=== PATIENT | male | born 1960 | race Caucasian/White ===

== ENCOUNTER → 2020-06-26 13:38 | Outpatient (BNVA) | payer MEDICAID, SELFPAY | PROVIDERS: Visit Provider Nurse Practitioner | DX: R06.00 Dyspnea, unspecified (principal); J22 Unspecified acute lower respiratory infection | CPT/HCPCS: 83880; 85025 ==

== ENCOUNTER 2020-08-20 08:56 | Outpatient (CLI) | payer MEDICAID, SELFPAY ==
[2020-08-20 09:50] LABS: Basophils # 0.1 10^3/uL (0.0-0.1); Basophils % 0.3 %; Eosinophils # 0.1 10^3/uL (0.0-0.8); Eosinophils % 0.3 %; Hematocrit 43.8 % (42.0-52.0); Hemoglobin 13.9 g/dL (11.7-16.6); Lymphocytes # 1.1 10^3/uL (0.8-4.8); Lymphocytes % 6.2 %; Mean Corpuscular HGB Conc 31.7 g/dL (30.0-36.0); Mean Corpuscular Hemoglobin 30.8 pg (28.0-34.0); Mean Corpuscular Volume 97.1 fL (80-94); Mean Platelet Volume 10.4 fL (7.4-10.4); Monocytes # 0.9 10^3/uL (0.2-0.9); Neutrophils # 15.06 10^3/uL (1.8-7.7); Neutrophils % 86.3 %; Nucleated Red Blood Cells % 0 %; Platelet Count 263 10^3/cmm (130-400); Red Blood Count 4.51 10^6/uL (4.1-5.3); Red Cell Distribution Width 14.5 % (12.1-15.1); White Blood Count 17.5 10^3/uL (4.0-10.0)
--- NOTE | 2020-08-20 14:50 | ONC CON_ITS ---
Dr. Wang New Patient Note Patient: Partha Roe Unit #: [id number]: 1960 Dicatated By: Dieudonne Wang M.D.Date of Visit: August 20, 2020 Onc MED New Patient/Consult Referring Physician: TRAVIS MCKEON History of Present Illness: Mr. Partha Roe, is a 60-year-old gentleman with history of leukocytosis since 2012, as per patient at that time he underwent gallbladder surgery and he was told about elevated white blood cell and during follow-up visits and evaluation, as per patient his white blood count stayed up, there was no other abnormality so his PMD continue to monitor, Lab work-up done and PMDs office on August 13, 2020 showed white blood count 14.8 hemoglobin 14.9 hematocrit 45.4 platelets 276,000, with a left shift in 2018, he was diagnosed withPulmonary sarcoidosis at that time he was started on prednisone and he is still on prednisone 20 mg p.o. daily.. Patient denies any weight loss patient denies any night sweats patient denies any recurrent fever patient denies any gross bleeding patient denies any gum bleeding patient denies any recurrent infections, patient denies any weight loss patient denies any peripheral lymphadenopathy, patient denies any abdominal fullness, patient denies any generalized bony aches. Patient has history of spine injury due to fall in 2019. Patient denies smoking or alcohol use Patient has history of COPD., Hypertension, hyperlipidemia Past Medical History: Mr. Roe's medical history consists of chronic heart disease, chronic obstructive pulmonary disease, hyperlipidemia, hypertension, osteoporosis, and sarcoidosis. Past Surgical History: There is no documented surgical history. Medications: Aspirin 81 1 Tablet (of 81 mg) Tablet, chewable Oral daily, Bactrim DS 1 Tablet (of 800-160 mg) Oral, Furosemide 1 Tablet (of 40 mg) Oral daily, Lisinopril 1 Tablet (of 5 mg) Oral daily, Metoprolol Tartrate 1 Tablet (of 25 mg) Oral b.i.d., Potassium Chloride ER 1 Capsule (of 10 meq) Capsule, controlled release Oral daily, predniSONE 1 Tablet (of 20 mg) Oral daily, Simvastatin 1 Tablet (of 40 mg) Oral daily Allergies: Ibuprofen Social History: Mr. Roe is . Mr. Roe has never smoked. He has no history of drinking. He has indicated exposure to the following products: chewing tobacco. chews i can of tobacco daily. Family History: Mr. Roe's mother is . Mr. Roe's father is : hypertension. Review Of Symptoms: Review of Systems is not available for this patient. Vital Signs: Performed on August 20, 2020 11:11: 0, 28.50, 1.90 sq.m, 66 in, 98 %, 67 /min, 18 /min, 119/73 mm(hg), 97.0 F (LOW), and 176.6 lbs (HIGH). Performance Status: 0 - Fully active, able to carry on all predisease activities without restrictions. (ECOG) Physical Examination: ENMT - No mouth sores, no thrush, no jaundice no cervical lymphadenopathy, no supraclavicular or axillary lymphadenopathy, Respiratory - Lungs are clear to auscultation, Cardiovascular - Regular rate and rhythm of heart, Abdomen - Soft, bowel sounds present, Extremities - Trace edema more on the right side. Lab/Imaging: Most recent lab results are not available for this patient. Impression: Isolated Leukocytosis/neutrophilia, etiology myeloproliferative disorder versus steroid-induced versus associated with sarcoidosis versus underlying chronic inflammation History of sarcoidosis, diagnosed in 2018, on prednisone since then and now taking 20 mg p.o. daily, being managed by pulmonology in [facility] Plan: Discussed with patient regarding his labs white blood count 17.5 hemoglobin 13.9 hematocrit 43.8 platelets 263,000 neutrophil 86.3% lymphocytes 6.2% Clinically, patient is doing well with no new signs symptom except chronic back pain due to back injury due to fall, otherwise denies fever or chills denies any dysuria or sinus problem, his repeat labs done today showed progressive leukocytosis/neutrophilia, etiology remains unclear could be due to myeloproliferative disorder like CML other myeloproliferative disorder sometime associated with sarcoidosis, other possibility could be chronic steroid use but as per patient he was diagnosed with leukocytosis in 2012 at the time of gallbladder surgery e.g. prior to diagnosis of sarcoidosis which was in 2018. At this point we will proceed with whole blood flow cytometry to rule out myeloproliferative disorder and also consider abdominal sonogram to assess spleen size and then patient return to clinic in 2 weeks with CBC Signed By: Dieudonne Wang M.D. <<Signature on File>>
== END 2020-08-20 08:57 | disposition home or self-care (01) ==
PROVIDERS: Visit Provider Internal Medicine Hematology & Oncology
DX: D72.820 Lymphocytosis (symptomatic) (principal); D72.9 Disorder of white blood cells, unspecified; C94.6 Myelodysplastic disease, not elsewhere classified; D86.0 Sarcoidosis of lung; Z79.52 Long term (current) use of systemic steroids; Z79.899 Other long term (current) drug therapy
CPT/HCPCS: 36415; 85025; 88184; 88185; 99205

== ENCOUNTER 2020-09-05 07:35 | Outpatient (CLI) | payer MEDICAID, SELFPAY ==
--- NOTE | 2020-09-05 08:06 | US_ITS ---
WS: [id number] ULTRASOUND ABDOMEN CLINICAL INFORMATION: LEUKOCYTOSIS COMPARISON: Ultrasound 1 FINDINGS: Liver Size: Enlarged Craniocaudal length: 18.1 cm. Echogenicity: Dense Surface nodularity: None. Mass (size and location): None. Bile ducts Intrahepatic ducts: Normal. Common bile duct diameter: 0.5 cm. Gallbladder Removed Pancreas Normal as visualized. Spleen Splenomegaly: None. Craniocaudal length: 9.1 cm. Right kidney: Normal. Hydronephrosis: None. Size: 10.7 cm x 4.8 cm x 6.5 cm Left kidney: Normal. Hydronephrosis: None. Size: 11.4 cm x 5.7 cm x 5.3 cm. Abdominal aorta and IVC Visualized portions are normal. Ascites: None. US/US abdomen complete* [id number] IMPRESSION: 1. Hepatomegaly with diffuse fatty infiltration. 2. Prior cholecystectomy. Normal common bile duct. 3. No hydronephrosis in either kidney. 4. A few splenic granulomas.
== END 2020-09-05 07:36 | disposition home or self-care (01) ==
LOC: RAD 07:38
PROVIDERS: Visit Provider Internal Medicine Hematology & Oncology
DX: D72.829 Elevated white blood cell count, unspecified (principal); L92.8 Other granulomatous disorders of the skin and subcutaneous tissue; R16.0 Hepatomegaly, not elsewhere classified; K76.0 Fatty (change of) liver, not elsewhere classified; Z90.49 Acquired absence of other specified parts of digestive tract
CPT/HCPCS: 76700

== ENCOUNTER 2020-09-10 12:09 | Outpatient (CLI) | payer MEDICAID, SELFPAY ==
[2020-09-10 12:37] LABS: Basophils # 0.1 10^3/uL (0.0-0.1); Basophils % 0.3 %; Eosinophils % 0.1 %; Hematocrit 43.5 % (42.0-52.0); Lymphocytes # 0.8 10^3/uL (0.8-4.8); Lymphocytes % 4.6 %; Mean Corpuscular HGB Conc 32.2 g/dL (30.0-36.0); Mean Corpuscular Hemoglobin 30.8 pg (28.0-34.0); Mean Corpuscular Volume 95.6 fL (80-94); Mean Platelet Volume 10.1 fL (7.4-10.4); Monocytes # 0.5 10^3/uL (0.2-0.9); Monocytes % 3.1 %; Neutrophils # 15.73 10^3/uL (1.8-7.7); Neutrophils % 90.3 %; Nucleated Red Blood Cells % 0 %; Platelet Count 286 10^3/cmm (130-400); Red Blood Count 4.55 10^6/uL (4.1-5.3); Red Cell Distribution Width 14.3 % (12.1-15.1); White Blood Count 17.4 10^3/uL (4.0-10.0)
--- NOTE | 2020-09-28 13:28 | ONC FU_ITS ---
[facility] Patient Note Patient: Partha Roe Unit #: [id number]: 1960 Dictated By: Danny MontanoDate of Visit: Sep 10, 2020 Onc MED Follow-Up/Prog Note Chief Complaint: Leukocytosis History of Present Illness: Mr. Roe is a 60-year-old gentleman with history of leukocytosis since 2012. He reports at that time he underwent gallbladder surgery and he was told about elevated white blood cell. He continued to have elevated white blood cell counts during follow-up visits and evaluations. As there was no other abnormalities, his PMD continue to monitor the WBCs. Lab work-up done and PMDs office on August 13, 2020 showed white blood count 14.8 hemoglobin 14.9 hematocrit 45.4 platelets 276,000. In 2018, he was diagnosed with Pulmonary sarcoidosis at that time he was started on prednisone. He remains on prednisone 20 mg p.o. daily. Patient denies any weight loss patient denies any night sweats patient denies any recurrent fever patient denies any gross bleeding patient denies any gum bleeding patient denies any recurrent infections, patient denies any weight loss patient denies any peripheral lymphadenopathy, patient denies any abdominal fullness, patient denies any generalized bony aches. Patient has history of spine injury due to fall in 2019. Patient has history of COPD., Hypertension, hyperlipidemia At his follow-up with Dr. Wang on August 20, 2020 Dr. Wang had requested and abdominal ultrasound to assess his spleen and flow cytometry to rule out myeloproliferative disorder. Mr. Roe is here today to go over results of the ultrasound. His flow cytometry results are not available in our chart or that I can find in [employer]. We did review that ultrasound report from 09/05/2020. His liver size is slightly enlarged at 18.1 cm bile ducts are normal gallbladder has been removed pancreas was normal spleen was normal size at 9.1 cm his kidneys are normal and abdominal aortic and IVC visualized portions were normal. There was no ascites. Mr. Ross has no new concerns today. He denies any shortness of breath orthopnea. He denies any chest pain or palpitations. He denies fever or chills. He denies any new concerns. He was informed Dr. Wang is out of the office today and I have no results for the flow cytometry. We will have Dr. Wang review those upon his return to the office and have one of the nurses call him with results and plan for further follow-up. His ECOG is 0. Past Medical History: Chronic heart disease Chronic obstructive pulmonary disease Hyperlipidemia Hypertension Osteoporosis Sarcoidosis Past Surgical History: Allergies: Ibuprofen Medications: Aspirin 81 1 Tablet (of 81 mg) Tablet, chewable Oral daily Bactrim DS 1 Tablet (of 800-160 mg) Oral Furosemide 1 Tablet (of 40 mg) Oral daily Lisinopril 1 Tablet (of 5 mg) Oral daily Metoprolol Tartrate 1 Tablet (of 25 mg) Oral b.i.d. Potassium Chloride ER 1 Capsule (of 10 meq) Capsule, controlled release Oral daily predniSONE 1 Tablet (of 20 mg) Oral daily Simvastatin 1 Tablet (of 40 mg) Oral daily Family History: Mr. Roe's mother is . Mr. Roe's father is : hypertension. Social History: Mr. Roe is . Mr. Roe has never smoked. He has no history of drinking. He has indicated exposure to the following products: chewing tobacco. chews i can of tobacco daily. Review Of Symptoms: <See Above> Vital Signs: Performed on Sep 10, 2020 13:39 Height - 66.00 in Weight - 175.4 lbs (LOW) BSA - 1.89 sq.m BMI - 28.31 Temperature - 98.0 F (LOW) Pulse - 70 /min Respiration - 18 /min BP - 117/71 mm(hg) O2 Sat - 97 % Pain - 0,0 - Fully active, able to carry on all predisease activities without restrictions. (ECOG) Physical Examination: Constitutional Alert, oriented, no acute distress. Skin pink, warm and dry. Head Normocephalic; atraumatic. Eyes Conjunctivae and sclerae are clear and without icterus. Pupils are reactive and equal. Hematologic/Lymphatic No petechiae or purpura. Back/Spine Non-tender to palpation. Extremities No visible deformities, no cyanosis, clubbing or edema. Musculoskeletal No tenderness or swelling, normal range of motion without obvious weakness. Integumentary No rashes or lesions. Neurologic No sensory or motor deficits, normal cerebellar function, normal gait. Psychiatric Alert and oriented times three. Coherent speech. Verbalizes understanding of our discussions today. Laboratory:Test performed on Sep 10, 2020 12:30 WBC 17.4 10 3/uL RBC 4.55 10 6/uL HGB 14.0 g/dL HCT 43.5 % MCV 95.6 fL MCH 30.8 pg MCHC 32.2 g/dL RDW 14.3 % Platelet Count 286 10 3/cmm MPV 10.1 fL Neutrophils 15.73 10 3/uL Lymphocytes 0.8 10 3/uL Monocytes 0.5 10 3/uL Eosinophils 0.0 10 3/uL Basophils 0.1 10 3/uL Neutrophil % 90.3 % Lymphocyte % 4.6 % Monocyte % 3.1 % Eosinophil % 0.1 % Basophils % 0.3 % NRBC % 0 % Impression: Isolated Leukocytosis/neutrophilia, etiology myeloproliferative disorder versus steroid-induced versus associated with sarcoidosis versus underlying chronic inflammation History of sarcoidosis, diagnosed in 2018, on prednisone since then and now taking 20 mg p.o. daily, being managed by pulmonology in [facility] Plan/Problems Addressed at this Visit: 1. Leukocytosis A. Labs from today reviewed a white count of 17.4 which is stable compared to August 20, 2020 at which time was 17.5. His hemoglobin today is 14, platelets 286,000 neutrophils are 15,730. B. His ultrasound of the abdomen from 09/05/2020 reports a normal sized spleen at 9.1 cm. C. I do not have the results of his flow cytometry available. D. We will have Dr. Wang review the flow cytometry results once we obtain those and one of the nurses will call Mr. Roe or his (at his request) with results and further plan of care. E. Continue Prednisone 20 mg daily for now. F. Mr. Roe was instructed to contact us in interim should questions or problems arise. Signed By: Danny Montano-, [facility] Dieudonne Wang MD <<Signature on File>>
== END 2020-09-10 12:10 | disposition home or self-care (01) ==
LOC: ONCMED 12:12
PROVIDERS: Visit Provider Nurse Practitioner
DX: D72.829 Elevated white blood cell count, unspecified (principal); Z87.09 Personal history of other diseases of the respiratory system; Z79.52 Long term (current) use of systemic steroids; Z79.899 Other long term (current) drug therapy
CPT/HCPCS: 36415; 85025; G0463

== ENCOUNTER 2020-09-19 05:57 | Outpatient (CLI) | payer MEDICAID, SELFPAY ==
--- NOTE | 2020-09-19 11:37 | ONC FU_ITS ---
Dr. Wang follow up note Patient: Partha Roe Unit #: [id number]: 1960 Dicatated By: Dieudonne Wang M.D.Date of Visit:Sep 19, 2020 Onc Med Follow-up/Prog Note History of Present Illness: Mr. Partha Roe, is a 60-year-old gentleman with history of leukocytosis since 2012, as per patient at that time he underwent gallbladder surgery and he was told about elevated white blood cell and during follow-up visits and evaluation, as per patient his white blood count stayed up, there was no other abnormality so his PMD continue to monitor, Lab work-up done and PMDs office on August 13, 2020 showed white blood count 14.8 hemoglobin 14.9 hematocrit 45.4 platelets 276,000, with a left shift in 2018, he was diagnosed withPulmonary sarcoidosis at that time he was started on prednisone and he is still on prednisone 20 mg p.o. daily.. Patient denies any weight loss patient denies any night sweats patient denies any recurrent fever patient denies any gross bleeding patient denies any gum bleeding patient denies any recurrent infections, patient denies any weight loss patient denies any peripheral lymphadenopathy, patient denies any abdominal fullness, patient denies any generalized bony aches. Patient has history of spine injury due to fall in 2019. Patient has history of COPD., Hypertension, hyperlipidemia Whole blood flow cytometry done on August 20, 2020 showed no overtly aberrant myeloid or lymphoid cells recurrent fever. Abdominal sonogram done on September 05, 2020 showed hepatomegaly with diffuse fatty infiltration. Few splenic granuloma otherwise normal size. Prior cholecystectomy Came for follow-up, denies any specific complaints, no fever chills, no nausea or vomiting, no diarrhea or constipation, patient is on prednisone 20 mg p.o. daily for pulmonary sarcoidosis and now being managed by solutions manager. Patient denies any night sweats, denies any weight loss, denies any Medications: Aspirin 81 1 Tablet (of 81 mg) Tablet, chewable Oral daily, Bactrim DS 1 Tablet (of 800-160 mg) Oral, Furosemide 1 Tablet (of 40 mg) Oral daily, Lisinopril 1 Tablet (of 5 mg) Oral daily, Metoprolol Tartrate 1 Tablet (of 25 mg) Oral b.i.d., Potassium Chloride ER 1 Capsule (of 10 meq) Capsule, controlled release Oral daily, predniSONE 1 Tablet (of 20 mg) Oral daily, Simvastatin 1 Tablet (of 40 mg) Oral daily Allergies: Ibuprofen Review of Systems: Review of Systems is not available for this patient. Vital Signs: Performed on Sep 19, 2020 10:46 Height - 66.00 in Weight - 177.8 lbs (HIGH) BSA - 1.90 sq.m BMI - 28.70 Temperature - 98 F (LOW) Pulse - 76 /min Respiration - 18 /min BP - 124/81 mm(hg) O2 Sat - 98 % Pain - 0 Fatigue - 0 Performance Status: 0 - Fully active, able to carry on all predisease activities without restrictions. (ECOG) Physical Examination: ENMT - No mouth sores, no thrush, no jaundice, no lymphadenopathy, Respiratory - Lungs are clear to auscultation, Cardiovascular - Regular rate and rhythm of heart, Abdomen - Soft, bowel sounds present, Extremities - No visible edema or rash. Lab/Imaging: Test performed on Sep 10, 2020 12:30 WBC 17.4 10 3/uL RBC 4.55 10 6/uL HGB 14.0 g/dL HCT 43.5 % MCV 95.6 fL MCH 30.8 pg MCHC 32.2 g/dL RDW 14.3 % Platelet Count 286 10 3/cmm MPV 10.1 fL Neutrophils 15.73 10 3/uL Lymphocytes 0.8 10 3/uL Monocytes 0.5 10 3/uL Eosinophils 0.0 10 3/uL Basophils 0.1 10 3/uL Neutrophil % 90.3 % Lymphocyte % 4.6 % Monocyte % 3.1 % Eosinophil % 0.1 % Basophils % 0.3 % NRBC % 0 % Impression: Isolated Leukocytosis/neutrophilia, , Most likely due to steroid as whole blood flow cytometry done on August 20, 2020 showed no evidence of aberrant myeloid or lymphoid population, or Underlying myeloproliferative disorder is a possibility but less likely abdominal sonogram done on September 05, 2020 showed hepatomegaly with diffuse fatty infiltration. Prior cholecystectomy. A few splenic granuloma but spleen is normal size History of sarcoidosis, diagnosed in 2018, on prednisone since then and now taking 20 mg p.o. daily, being managed by pulmonology in [facility] Plan: Discussed with patient regarding his labs from September 10, 2020 which shows white blood count 17.4 hemoglobin 14 hematocrit 43.5 platelets 286,000 and whole blood flow cytometry showed no overtly aberrant myeloid or lymphoid population and abdominal sonogram done on September 05, 2020 showed hepatomegaly with diffuse fatty infiltration. Prior cholecystectomy. A few splenic granuloma but spleen is normal size Clinically, patient doing well with no new signs symptoms his follow-up labs shows persistent isolated leukocytosis, whole blood flow cytometry showed no evidence of abnormal lymphoid or myeloid population thus is isolated leukocytosis is most likely due to steroids. And his abdominal sonogram shows no abnormality except fatty liver and few granuloma in the spleen which could be sarcoidosis but spleen size is normal. At this point no further work-up rather monitor patient return to clinic in 3 months with CBC and if there is a progression, may consider molecular testing for myeloproliferative disorder Signed By: Dieudonne Wang M.D. <<Signature on File>>
== END 2020-09-19 05:58 | disposition home or self-care (01) ==
PROVIDERS: Visit Provider Internal Medicine Hematology & Oncology
DX: D72.829 Elevated white blood cell count, unspecified (principal); K76.0 Fatty (change of) liver, not elsewhere classified; Z90.49 Acquired absence of other specified parts of digestive tract; Z87.09 Personal history of other diseases of the respiratory system; Z79.52 Long term (current) use of systemic steroids; Z79.899 Other long term (current) drug therapy
CPT/HCPCS: 99214

== ENCOUNTER 2020-11-06 14:46 | Outpatient (CLI) | payer MEDICAID, SELFPAY ==
[2020-11-06 15:50] LABS: Alanine Aminotransferase 23 U/L (0-41); Albumin Level 4.2 g/dL (3.5-5.2); Alkaline Phosphatase 71 IU/L (40-130); Anion Gap 17.1 (5-19); Aspartate Amino Transferase 18 U/L (0-40); Blood Urea Nitrogen 18 mg/dL (6-20); Carbon Dioxide 25 mmol/L (22-29); Chloride 100 mmol/L (98-107); Globulin 2.4 g/dL (1.3-4.6); Glomerular Filtration Rate 86.7 mL/min (90-130); Glucose 106 mg/dL (65-115); Osmolality Calculated 286 mOsm/kg (285-295); Potassium 5.1 mmol/L (3.5-5.1); Sodium 137 mmol/L (136-145); Total Bilirubin 0.4 mg/dL (0.15-1.2); Total Protein 6.6 g/dL (6.6-8.7)
== END 2020-11-06 14:47 | disposition home or self-care (01) ==
LOC: LAB 14:48
PROVIDERS: PCP Family Medicine; Visit Provider Family Medicine
DX: R16.0 Hepatomegaly, not elsewhere classified (principal); I10 Essential (primary) hypertension
CPT/HCPCS: 80053

== ENCOUNTER 2020-12-19 09:36 | Outpatient (CLI) | payer MEDICAID, SELFPAY ==
[2020-12-19 10:37] LABS: Basophils % 0.3 %; Eosinophils # 0.1 10^3/uL (0.0-0.8); Eosinophils % 0.5 %; Hematocrit 43.9 % (42.0-52.0); Hemoglobin 14.1 g/dL (11.7-16.6); Lymphocytes # 0.9 10^3/uL (0.8-4.8); Lymphocytes % 5.9 %; Mean Corpuscular HGB Conc 32.1 g/dL (30.0-36.0); Mean Corpuscular Hemoglobin 30.6 pg (28.0-34.0); Mean Corpuscular Volume 95.2 fl (80-94); Mean Platelet Volume 10.1 fL (7.4-10.4); Monocytes % 6.1 %; Neutrophils % 85.3 %; Nucleated Red Blood Cells % 0 %; Platelet Count 231 10^3/cmm (130-400); Red Blood Count 4.61 10^6/uL (4.1-5.3); White Blood Count 15.7 10^3/uL (4.0-10.0)
--- NOTE | 2020-12-19 11:29 | ONC FU_ITS ---
Dr. Wang follow up note Patient: Partha Roe Unit #: [id number]: 1960 Dicatated By: Dieudonne Wang M.D.Date of Visit:Dec 19, 2020 Onc Med Follow-up/Prog Note History of Present Illness: Mr. Partha Roe, is a 60-year-old gentleman with history of leukocytosis since 2012, as per patient at that time he underwent gallbladder surgery and he was told about elevated white blood cell and during follow-up visits and evaluation, as per patient his white blood count stayed up, there was no other abnormality so his PMD continue to monitor, Lab work-up done and PMDs office on August 13, 2020 showed white blood count 14.8 hemoglobin 14.9 hematocrit 45.4 platelets 276,000, with a left shift in 2018, he was diagnosed withPulmonary sarcoidosis at that time he was started on prednisone and he is still on prednisone 20 mg p.o. daily.. Patient denies any weight loss patient denies any night sweats patient denies any recurrent fever patient denies any gross bleeding patient denies any gum bleeding patient denies any recurrent infections, patient denies any weight loss patient denies any peripheral lymphadenopathy, patient denies any abdominal fullness, patient denies any generalized bony aches. Patient has history of spine injury due to fall in 2019. Patient has history of COPD., Hypertension, hyperlipidemia Whole blood flow cytometry done on August 20, 2020 showed no overtly aberrant myeloid or lymphoid cells recurrent fever. Abdominal sonogram done on September 05, 2020 showed hepatomegaly with diffuse fatty infiltration. Few splenic granuloma otherwise normal size. Prior cholecystectomy Came for follow-up, denies any specific complaints, no fever chills, no nausea or vomiting, no diarrhea or constipation, no fever chills, no night sweats, patient is on prednisone 20 mg p.o. daily for pulmonary sarcoidosis, pulmonology is monitoring and following him. Medications: Aspirin 81 1 Tablet (of 81 mg) Tablet, chewable Oral daily, Bactrim DS 1 Tablet (of 800-160 mg) Oral, Furosemide 1 Tablet (of 40 mg) Oral daily, Lisinopril 1 Tablet (of 5 mg) Oral daily, Metoprolol Tartrate 1 Tablet (of 25 mg) Oral b.i.d., Potassium Chloride ER 1 Capsule (of 10 meq) Capsule, controlled release Oral daily, predniSONE 1 Tablet (of 20 mg) Oral daily, Simvastatin 1 Tablet (of 40 mg) Oral daily Allergies: Ibuprofen Review of Systems: Review of Systems is not available for this patient. Vital Signs: Performed on Dec 19, 2020 11:10 Height - 66.00 in Weight - 177.8 lbs BSA - 1.90 sq.m BMI - 28.70 Temperature - 97.4 F (LOW) Pulse - 75 /min Respiration - 18 /min BP - 123/77 mm(hg) O2 Sat - 99 % Pain - 0 Performance Status: 0 - Fully active, able to carry on all predisease activities without restrictions. (ECOG) Physical Examination: ENMT - No mouth sores, no thrush, no jaundice, no cervical lymphadenopathy, Respiratory - Lungs are clear to auscultation, Cardiovascular - Regular rate and rhythm of heart, Abdomen - Soft, bowel sounds present, Extremities - No visible edema. Lab/Imaging: Test performed on Sep 10, 2020 12:30 WBC 17.4 10 3/uL RBC 4.55 10 6/uL HGB 14.0 g/dL HCT 43.5 % MCV 95.6 fL MCH 30.8 pg MCHC 32.2 g/dL RDW 14.3 % Platelet Count 286 10 3/cmm MPV 10.1 fL Neutrophils 15.73 10 3/uL Lymphocytes 0.8 10 3/uL Monocytes 0.5 10 3/uL Eosinophils 0.0 10 3/uL Basophils 0.1 10 3/uL Neutrophil % 90.3 % Lymphocyte % 4.6 % Monocyte % 3.1 % Eosinophil % 0.1 % Basophils % 0.3 % NRBC % 0 % Impression: Isolated Leukocytosis/neutrophilia, , Most likely due to steroid as whole blood flow cytometry done on August 20, 2020 showed no evidence of aberrant myeloid or lymphoid population, or Underlying myeloproliferative disorder is a possibility but less likely abdominal sonogram done on September 05, 2020 showed hepatomegaly with diffuse fatty infiltration. Prior cholecystectomy. A few splenic granuloma but spleen is normal size History of sarcoidosis, diagnosed in 2018, on prednisone since then and now taking 20 mg p.o. daily, being managed by pulmonology in [facility] Plan: Discussed with patient regarding his labs white blood count 15.7 compared to 17.4 previously hemoglobin 14.1 hematocrit 43.9 platelets 231,000 absolute neutrophil count 13,400 Clinically, patient doing well with no new signs symptoms, his follow-up labs shows persistent, fluctuating mild leukocytosis/neutrophilia with a normal hemoglobin and platelet counts , etiology of persistent isolated leukocytosis/neutrophilia is most likely due to steroid as steroids cause demargination and slowing down of apoptosis and migration Of white blood cells to the tissue thus cause leukocytosis. Moreover whole blood flow cytometry did not show any aberrant myeloid or lymphoid cell population. At this point ,no further work-up from hematological point of view rather observe, if after discontinuing chronic prednisone therapy, his isolated leukocytosis persists, then will consider work-up to rule out underlying myelo proliferative disorder. Patient will follow with pulmonology as well as his PMD on regular basis so we will see him on as-needed basis. Signed By: Dieudonne Wang M.D. <<Signature on File>>
== END 2020-12-19 09:37 | disposition home or self-care (01) ==
LOC: ONCMED 09:39
PROVIDERS: PCP Family Medicine; Visit Provider Internal Medicine Hematology & Oncology
DX: D72.829 Elevated white blood cell count, unspecified (principal); R16.0 Hepatomegaly, not elsewhere classified; K76.0 Fatty (change of) liver, not elsewhere classified; D86.9 Sarcoidosis, unspecified; Z79.899 Other long term (current) drug therapy
CPT/HCPCS: 36415; 85025; 99214

== ENCOUNTER → 2021-03-05 15:52 | Outpatient (BNVA) | payer MEDICARE, MEDICAID, SELFPAY | PROVIDERS: PCP Family Medicine; Visit Provider Nurse Practitioner Family | DX: J02.9 Acute pharyngitis, unspecified (principal); J44.9 Chronic obstructive pulmonary disease, unspecified; Z01.89 Encounter for other specified special examinations | CPT/HCPCS: 87880 ==

== ENCOUNTER → 2021-03-31 15:48 | Outpatient (BNVA) | payer MEDICARE, MEDICAID, SELFPAY | PROVIDERS: PCP Family Medicine; Visit Provider Family Medicine | DX: R06.00 Dyspnea, unspecified (principal); M79.89 Other specified soft tissue disorders; I25.10 Atherosclerotic heart disease of native coronary artery without angina pectoris; I10 Essential (primary) hypertension | CPT/HCPCS: 80048 ==

== ENCOUNTER 2021-05-22 08:34 | Outpatient (CLI) | payer MEDICARE, MEDICAID, SELFPAY ==
--- NOTE | 2021-05-22 08:45 | USCV_ITS ---
Partha Roe Age: 61 Gender: M : 1960 Exam Date: 05/22/2021 08:51 Ordering Phys: Refugio Bedoya DO Technologist: BRIANA Exam Location: [facility] – [place] Indication: feet swelling R>L s/p DC 2016 s/p cardiac stenting. BP: / HR: 69 Rhythm: Sinus Technical Quality: Adequate MEASUREMENTS (Male / Female) Normal Values 2D ECHO LV Diastolic Diameter PLAX 2.9 cm 4.2 - 5.9 / 3.9 - 5.3 cm LV Systolic Diameter PLAX 2.1 cm IVS Diastolic Thickness 1.6 cm 0.6 - 1.0 / 0.6 - 0.9 cm IVS Systolic Thickness 1.3 cm LVPW Diastolic Thickness 1.6 cm 0.6 - 1.0 / 0.6 - 0.9 cm LVPW Systolic Thickness 1.8 cm LVOT Diameter 2.0 cm LV Ejection Fraction 2D Teich 53.3 % LV Ejection Fraction MOD 2C 54.9 % LV Ejection Fraction 2C AL 55.4 % LA Diameter 4.0 cm LA Width 3.6 cm LA Height 4.4 cm RA Width 2.4 cm RA Height 3.3 cm Aorta at Sinotubular Diameter 2.4 cm M-MODE Aortic Annulus Diameter 2.5 cm LA Ao Ratio MM 1.6 MV E Point Septal Separation 0.9 cm DOPPLER AV Peak Velocity 124.0 cm/s LVOT Peak Velocity 110.0 cm/s AV Area Cont Eq vti 3.0 cm squared AV Area Cont Eq pk 2.8 cm squared MV Area PHT 4.1 cm squared Mitral E to A Ratio 0.9 MV E' Velocity 41.0 cm/s Mitral E to MV E' Ratio 8.7 Mitral E to LV E' Lateral Ratio 6.7 Mitral E to LV E' Septal Ratio 12.7 TR Peak Velocity 248.3 cm/s TR Peak Gradient 24.7 mmHg TV Peak E Velocity 65.0 cm/s Right Atrial Pressure 5.0 mmHg Pulmonary Artery Systolic Pressu 29.7 mmHg PV Peak Velocity 90.0 cm/s RV Acceleration Time 0.2 s RV Ejection Time 0.3 s RV AcT/ET 0.5 FINDINGS Left Ventricle Normal left ventricular size. LV systolic function is normal with EF of 50-55%. No regional wall motion abnormalities. Grade 1 diastolic dysfunction Right Ventricle The right ventricle is normal in size and function. Right Atrium The right atrium is normal in size. Left Atrium The left atrium is normal in size. Mitral Valve Structurally normal mitral valve without significant stenosis or prolapse. There is no mitral regurgitation. Aortic Valve Structurally normal aortic valve without significant sclerosis or stenosis. There is no aortic regurgitation. Tricuspid Valve Structurally normal tricuspid valve without significant stenosis. Trace tricuspid regurgitation. Insufficient TR jet to calculate RVSP Pulmonic Valve Not well visualized Pericardium Normal pericardium without effusion. Aorta Normal ascending aorta dimension. CONCLUSIONS Techinically limited quality echocardiogram because of poor ultrasonic windows. LV systolic function is normal with EF of 50-55% Grade 1 diastolic dysfunction Trace tricuspid regurgitation Compared to prior echocardiogram from 08/21/2015, grade 1 diastolic dysfunction is now noted Shaggy Arrieta MD (Electronically Signed) Final Date: 01 June 2021 15:17 S
== END 2021-05-22 08:35 | disposition home or self-care (01) ==
LOC: RAD 08:37
PROVIDERS: PCP Family Medicine; Visit Provider Family Medicine
DX: M79.89 Other specified soft tissue disorders (principal); R06.00 Dyspnea, unspecified; I07.9 Rheumatic tricuspid valve disease, unspecified
CPT/HCPCS: 93306

== ENCOUNTER → 2021-07-28 08:57 | Outpatient (BNVA) | payer MEDICARE, MEDICAID, SELFPAY | PROVIDERS: PCP Family Medicine; Visit Provider Nurse Practitioner Family | DX: I25.10 Atherosclerotic heart disease of native coronary artery without angina pectoris (principal); I10 Essential (primary) hypertension; M79.89 Other specified soft tissue disorders | CPT/HCPCS: 99213; 99214 ==

== ENCOUNTER → 2021-09-29 16:42 | Outpatient (BNVA) | payer MEDICARE, MEDICAID, SELFPAY | PROVIDERS: PCP Family Medicine; Visit Provider Family Medicine | DX: R06.02 Shortness of breath (principal); M54.6 Pain in thoracic spine; R60.0 Localized edema; I10 Essential (primary) hypertension | CPT/HCPCS: 71046; 80053; 83735; 83880; 84443; 85025; 86140 ==

== ENCOUNTER 2021-09-29 17:24 | Outpatient (CLI) | payer MEDICARE, MEDICAID, SELFPAY ==
[2021-09-29 18:04] LABS: Basophils % 0.1 %; Hematocrit 42.5 % (42.0-52.0); Hemoglobin 14.2 g/dL (11.7-16.6); Lymphocytes # 1.2 10^3/uL (0.8-4.8); Lymphocytes % 5.9 %; Mean Corpuscular HGB Conc 33.4 g/dL (30.0-36.0); Mean Corpuscular Hemoglobin 30.7 pg (28.0-34.0); Mean Corpuscular Volume 91.8 fl (80-94); Mean Platelet Volume 9.9 fL (7.4-10.4); Monocytes # 1.7 10^3/uL (0.2-0.9); Monocytes % 8.1 %; Neutrophils # 17.01 10^3/uL (1.8-7.7); Neutrophils % 83.7 %; Nucleated Red Blood Cells % 0 %; Platelet Count 286 10^3/cmm (130-400); Red Blood Count 4.63 10^6/uL (4.1-5.3); Red Cell Distribution Width 14.2 % (12.1-15.1); White Blood Count 20.4 10^3/uL (4.0-10.0)
[2021-09-29 18:29] LABS: Alanine Aminotransferase 47 U/L (0-41); Albumin Level 4.4 g/dL (3.5-5.2); Alkaline Phosphatase 85 IU/L (40-130); Anion Gap 17.8 (5-19); Aspartate Amino Transferase 24 U/L (0-40); Blood Urea Nitrogen 30 mg/dL (6-20); Calcium 9.8 mg/dL (8.5-10.5); Carbon Dioxide 25 mmol/L (22-29); Chloride 97 mmol/L (98-107); Globulin 2.3 g/dL (1.3-4.6); Glomerular Filtration Rate 76.5 mL/min (90-130); Glucose 112 mg/dL (65-115); Magnesium 2.2 mg/dL (1.7-2.3); NT Pro B Type Natriuretic Pept 51 pg/mL (0-125); Osmolality Calculated 287 mOsm/kg (285-295); Potassium 4.8 mmol/L (3.5-5.1); Sodium 135 mmol/L (136-145); Thyroid Stimulating Hormone 0.54 uIU/mL (0.27-4.20); Total Bilirubin 0.2 mg/dL (0.15-1.2); Total Protein 6.7 g/dL (6.6-8.7)
== END 2021-09-29 17:25 | disposition home or self-care (01) ==
LOC: LAB 17:30
PROVIDERS: PCP Family Medicine; Visit Provider Family Medicine
DX: I10 Essential (primary) hypertension (principal); M54.6 Pain in thoracic spine; R06.02 Shortness of breath; R60.0 Localized edema
CPT/HCPCS: 80053; 83735; 83880; 84443; 85025; 86140

== ENCOUNTER 2021-10-01 14:48 | Outpatient (CLI) | payer MEDICARE, MEDICAID, SELFPAY ==
--- NOTE | 2021-10-01 15:00 | XR_ITS ---
WS: [id number] XR thoracic spine 2V [id number] REASON FOR EXAM: Back pain, worsening. FINDINGS: There is mild to moderate bony demineralization. There are wedge-shaped compression deformities in th e thoracic spine from T5 to T12. These compression deformities have increased in severity with increa sing dorsal kyphosis. There is mild degenerative spondylosis through this same segment with mild disc space narrowing and osteophytic spurring. XR/XR thoracic spine 2V [id number] IMPRESSION: Worsening compression deformities in the thoracic spine likely due to metabolic bone disease.
== END 2021-10-01 14:49 | disposition home or self-care (01) ==
PROVIDERS: PCP Family Medicine; Visit Provider Family Medicine
DX: M54.6 Pain in thoracic spine (principal)
CPT/HCPCS: 72070

== ENCOUNTER → 2021-10-15 10:05 | Outpatient (BNVA) | payer MEDICARE, MEDICAID, SELFPAY | PROVIDERS: PCP Family Medicine; Referring Provider Family Medicine; Visit Provider Orthopaedic Surgery | DX: M48.54XA Collapsed vertebra, not elsewhere classified, thoracic region, initial encounter for fracture (principal); M48.56XA Collapsed vertebra, not elsewhere classified, lumbar region, initial encounter for fracture | CPT/HCPCS: 99204 ==

== ENCOUNTER → 2021-10-20 10:26 | Outpatient (BNVA) | payer MEDICARE, MEDICAID, SELFPAY | PROVIDERS: PCP Family Medicine; Referring Provider Family Medicine; Visit Provider Orthopaedic Surgery | DX: I11.0 Hypertensive heart disease with heart failure (principal); I50.32 Chronic diastolic (congestive) heart failure; E78.49 Other hyperlipidemia | CPT/HCPCS: 36415; 99214 ==

== ENCOUNTER → 2022-01-12 15:06 | Outpatient (BNVA) | payer MEDICARE, MEDICAID, SELFPAY | PROVIDERS: PCP Family Medicine; Visit Provider Family Medicine | DX: R06.00 Dyspnea, unspecified (principal) | CPT/HCPCS: 71046 ==

== ENCOUNTER → 2022-01-29 09:14 | Outpatient (BNVA) | payer MEDICARE, MEDICAID, SELFPAY | PROVIDERS: PCP Family Medicine; Visit Provider Family Medicine | DX: I50.32 Chronic diastolic (congestive) heart failure (principal); R06.02 Shortness of breath; I10 Essential (primary) hypertension | CPT/HCPCS: 80053; 83880 ==

== ENCOUNTER 2022-04-07 10:56 | Outpatient (CLI) | payer MEDICARE, MEDICAID, SELFPAY ==
--- NOTE | 2022-04-07 11:00 | USCV_ITS ---
Partha oRe Age: 62 Gender: M : 1960 Exam Date: 04/07/2022 11:06 Ordering Phys: Harpal Cotton MD Technologist: PREM Exam Location: [facility] – [place] Indication: EDEAM, AND SHORTNESS OF BREATH BP: 127 / 80 HR: 68 Rhythm: Sinus Technical Quality: Adequate MEASUREMENTS (Male / Female) Normal Values 2D ECHO LVOT Diameter 2.0 cm LV Ejection Fraction MOD 2C 59.6 % LV Ejection Fraction 2C AL 58.3 % LA Diameter 3.2 cm LA Width 2.2 cm LA Height 4.4 cm RA Width 2.6 cm RA Height 4.0 cm Aorta at Sinotubular Diameter 2.2 cm IVC Diameter 1.3 cm M-MODE Aortic Annulus Diameter 2.7 cm LA Ao Ratio MM 1.1 MV E Point Septal Separation 0.3 cm DOPPLER AV Peak Velocity 120.3 cm/s LVOT Peak Velocity 130.0 cm/s AV Area Cont Eq vti 3.6 cm squared AV Area Cont Eq pk 3.3 cm squared MV Peak Velocity 109.0 cm/s MV Area PHT 3.9 cm squared Mitral E to A Ratio 1.1 MV E' Velocity 55.0 cm/s Mitral E to MV E' Ratio 10.9 Mitral E to LV E' Lateral Ratio 9.9 Mitral E to LV E' Septal Ratio 12.2 TR Peak Velocity 147.6 cm/s TR Peak Gradient 8.7 mmHg TR Mean Velocity 129.6 cm/s TR Mean Gradient 6.7 mmHg TR Velocity Time Integral 41.0 cm TV Peak E Velocity 53.0 cm/s Right Atrial Pressure 3.0 mmHg Pulmonary Artery Systolic Pressu 11.7 mmHg PV Peak Velocity 101.0 cm/s RV Acceleration Time 0.1 s RV Ejection Time 0.3 s RV AcT/ET 0.4 FINDINGS Left Ventricle Normal left ventricular size and systolic function, EF 58 %. No regional wall motion abnormalities. Right Ventricle Normal right ventricular size and systolic function. Right Atrium The right atrium is normal in size. Left Atrium The left atrium is normal in size. Mitral Valve No gross abnormalities noted Aortic Valve No gross abnormalities noted Tricuspid Valve No gross abnormalities noted.trace tricuspid valve regurgitation. Pulmonic Valve No gross abnormalities noted Pericardium Normal pericardium without effusion. Aorta Normal aortic annulus size. IVC The inferior vena cava appears normal. CONCLUSIONS Normal left ventricular size and systolic function, EF 58 %. No regional wall motion abnormalities. Normal cardiac chamber sizes. Trace tricuspid valve regurgitation. Estimated pulmonary artery peak systolic pressure, within normal limits. There is no pericardial effusion. There are no intracardiac masses. Compared to the previous study from 05/22/2021, there may not be a significant change Dr Tunde Browne MD FAC (Electronically Signed) Final Date: 07 April 2022 16:54 S
== END 2022-04-07 10:57 | disposition home or self-care (01) ==
LOC: RAD 10:56
PROVIDERS: PCP Family Medicine; Visit Provider Family Medicine
DX: R60.0 Localized edema (principal); R06.02 Shortness of breath; I07.1 Rheumatic tricuspid insufficiency
CPT/HCPCS: 93306

== ENCOUNTER → 2022-07-07 09:24 | Outpatient (BNVA) | payer MEDICARE, MEDICAID, SELFPAY | PROVIDERS: PCP Family Medicine; Visit Provider Thoracic Surgery (Cardiothoracic Vascular Surgery) | DX: I96 Gangrene, not elsewhere classified (principal); L97.812 Non-pressure chronic ulcer of other part of right lower leg with fat layer exposed | CPT/HCPCS: 11042; 99213 ==

== ENCOUNTER → 2022-07-14 08:35 | Outpatient (BNVA) | payer MEDICARE, MEDICAID, SELFPAY | PROVIDERS: PCP Family Medicine; Visit Provider Thoracic Surgery (Cardiothoracic Vascular Surgery) | DX: I96 Gangrene, not elsewhere classified (principal); S80.811D Abrasion, right lower leg, subsequent encounter; W22.8XXD Striking against or struck by other objects, subsequent encounter | CPT/HCPCS: 11042 ==

== ENCOUNTER → 2022-07-21 08:39 | Outpatient (BNVA) | payer MEDICARE, MEDICAID, SELFPAY | PROVIDERS: PCP Family Medicine; Visit Provider Thoracic Surgery (Cardiothoracic Vascular Surgery) | DX: I96 Gangrene, not elsewhere classified (principal); L97.812 Non-pressure chronic ulcer of other part of right lower leg with fat layer exposed | CPT/HCPCS: 11042; A6021; A6212 ==

== ENCOUNTER → 2022-07-28 08:39 | Outpatient (BNVA) | payer MEDICARE, MEDICAID, SELFPAY | PROVIDERS: PCP Family Medicine; Visit Provider Thoracic Surgery (Cardiothoracic Vascular Surgery) | DX: L97.812 Non-pressure chronic ulcer of other part of right lower leg with fat layer exposed (principal) | CPT/HCPCS: 11042; A6021 ==

== ENCOUNTER → 2022-08-04 08:34 | Outpatient (BNVA) | payer MEDICARE, MEDICAID, SELFPAY | PROVIDERS: PCP Family Medicine; Visit Provider Thoracic Surgery (Cardiothoracic Vascular Surgery) | DX: I96 Gangrene, not elsewhere classified (principal); L97.812 Non-pressure chronic ulcer of other part of right lower leg with fat layer exposed | CPT/HCPCS: 11042; A6021 ==

== ENCOUNTER → 2022-08-11 08:41 | Outpatient (BNVA) | payer MEDICARE, MEDICAID, SELFPAY | PROVIDERS: PCP Family Medicine; Visit Provider Thoracic Surgery (Cardiothoracic Vascular Surgery) | DX: L97.812 Non-pressure chronic ulcer of other part of right lower leg with fat layer exposed (principal) | CPT/HCPCS: 11042 ==

== ENCOUNTER → 2022-08-18 08:45 | Outpatient (BNVA) | payer MEDICARE, MEDICAID, SELFPAY | PROVIDERS: PCP Family Medicine; Visit Provider Thoracic Surgery (Cardiothoracic Vascular Surgery) | DX: I96 Gangrene, not elsewhere classified (principal); L97.812 Non-pressure chronic ulcer of other part of right lower leg with fat layer exposed | CPT/HCPCS: 11042; A6021 ==

== ENCOUNTER → 2022-08-25 08:58 | Outpatient (BNVA) | payer MEDICARE, MEDICAID, SELFPAY | PROVIDERS: PCP Family Medicine; Visit Provider Thoracic Surgery (Cardiothoracic Vascular Surgery) | DX: I96 Gangrene, not elsewhere classified (principal); L97.812 Non-pressure chronic ulcer of other part of right lower leg with fat layer exposed | CPT/HCPCS: 97597; A6021; A6212 ==

== ENCOUNTER → 2022-09-08 10:48 | Outpatient (BNVA) | payer MEDICARE, MEDICAID, SELFPAY | PROVIDERS: PCP Family Medicine; Visit Provider Thoracic Surgery (Cardiothoracic Vascular Surgery) | DX: S81.811D Laceration without foreign body, right lower leg, subsequent encounter (principal); W22.8XXD Striking against or struck by other objects, subsequent encounter; L97.812 Non-pressure chronic ulcer of other part of right lower leg with fat layer exposed | CPT/HCPCS: 97597; A6021 ==

== ENCOUNTER → 2022-09-15 13:38 | Outpatient (BNVA) | payer MEDICARE, MEDICAID, SELFPAY | PROVIDERS: PCP Family Medicine; Visit Provider Thoracic Surgery (Cardiothoracic Vascular Surgery) | DX: I96 Gangrene, not elsewhere classified (principal); L97.812 Non-pressure chronic ulcer of other part of right lower leg with fat layer exposed | CPT/HCPCS: 97597; A6021; A6212 ==

== ENCOUNTER → 2022-12-20 11:44 | Outpatient (BNVA) | payer MEDICARE, MEDICAID, SELFPAY | PROVIDERS: PCP Family Medicine Adult Medicine; Visit Provider Internal Medicine Cardiovascular Disease | DX: R60.0 Localized edema (principal); D86.0 Sarcoidosis of lung; I11.0 Hypertensive heart disease with heart failure; I50.32 Chronic diastolic (congestive) heart failure; J44.9 Chronic obstructive pulmonary disease, unspecified; E78.49 Other hyperlipidemia; I25.10 Atherosclerotic heart disease of native coronary artery without angina pectoris | CPT/HCPCS: 99213 ==

== ENCOUNTER → 2023-06-02 10:22 | Outpatient (BNVA) | payer MEDICARE, MEDICAID, SELFPAY | PROVIDERS: PCP Family Medicine Adult Medicine; Visit Provider Family Medicine Adult Medicine | DX: Z01.818 Encounter for other preprocedural examination (principal); I10 Essential (primary) hypertension | CPT/HCPCS: 80048 ==

== ENCOUNTER → 2023-07-18 11:42 | Outpatient (BNVA) | payer MEDICARE, MEDICAID, SELFPAY | PROVIDERS: PCP Family Medicine Adult Medicine; Visit Provider Internal Medicine Cardiovascular Disease | DX: I11.0 Hypertensive heart disease with heart failure (principal); I50.32 Chronic diastolic (congestive) heart failure; I25.10 Atherosclerotic heart disease of native coronary artery without angina pectoris; E78.49 Other hyperlipidemia; D86.0 Sarcoidosis of lung | CPT/HCPCS: 99213 ==

== ENCOUNTER → 2023-08-02 11:30 | Outpatient (BNVA) | payer MEDICARE, MEDICAID, SELFPAY | PROVIDERS: PCP Family Medicine Adult Medicine; Visit Provider Nurse Practitioner Family | DX: D48.5 Neoplasm of uncertain behavior of skin (principal); D04.4 Carcinoma in situ of skin of scalp and neck; L57.0 Actinic keratosis | CPT/HCPCS: 11102; 17000; 99213 ==

== ENCOUNTER → 2023-08-11 11:32 | Outpatient (BNVA) | payer MEDICARE, MEDICAID, SELFPAY | PROVIDERS: PCP Family Medicine Adult Medicine; Visit Provider Nurse Practitioner Family | DX: C4A.61 Merkel cell carcinoma of right upper limb, including shoulder (principal) | CPT/HCPCS: 99212 ==

== ENCOUNTER 2023-09-27 14:52 | Oncology outpatient (recurring) (ONCR) | payer MEDICARE, MEDICAID, SELFPAY ==
--- NOTE | 2023-09-28 09:08 | N.ONRAD NP_ITS ---
Radiation Oncology New Patient Visit Patient: Partha Roe MR#: [id number] : 1960> Age: 63> Sex: Male> Dictated by: Dr. Mercedes Carrington Date of Service: 09/27/2023 Referring Physician(s) : Dr. Dang Diagnosis: D72.9 - leukocytosis, Diagnosed 08/20/2020 (active) and D72.829 - neutrophilia, Diagnosed 08/20/2020 (active). Radiotherapy to date: Summary > No prior radiation therapy. 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 He describes how he initially had a dry spot and then within a week it became a raised red area which he said looked strawberry in color. It was about the size of the tip of his finger. It had only been present for about 2 weeks before he saw the retail maintenance technician. His felt that this was an abnormal area and he needed to be seen right away. He subsequently had surgery on 08/02/2023 where the Stephan cell was excised. It was found to be high-grade and an embedded squamous cell. It measured 0.7 cm in size and extended to the margins. He subsequently underwent additional excision on 08/17/2023. The margins at this time were between 8 and 17 mm. A sampled lymph node was negative. He subsequently had a PET scan on 08/31/2023 and this did not reveal any metastatic disease. 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 Current Medications: Aspirin 81, bactrim DS, furosemide, lisinopril, metoprolol Tartrate, potassium Chloride ER, predniSONE, simvastatin. Allergies: Ibuprofen. Medical History: Chronic heart disease, chronic obstructive pulmonary disease, hyperlipidemia, hypertension, osteoporosis, sarcoidosis. No history of collagen vascular disease. No previous radiation therapy. Surgical History: Cholecystectomy, cardiac stents, back surgery, cataract surgery Family History: Father is having experienced hypertension. Mother is . Social History: Last screened on 12/19/2020 - Never smoked. Last screened on 12/19/2020 - Never drank. Patient indicated use of the following products: chewing tobacco. Current Complaints / Review of Systems: . Vital Signs: Performed on 09/27/2023 3:11 PM BMI - 27.019 kg/m2 (high), Height - 66 in, Weight - 167.4 lbs, Temperature - 97.7 f, Pulse - 94 /min, Respiration - 18 /min, O2 Sat - 96 %, Pain - 0, Fatigue - 0 and BP - 117/ 71 mm(hg). Physical Exam: General: Patient is a pleasant 63-year-old gentleman. He is alone today. HEENT: Normocephalic atraumatic. Pupils are equal, sclera clear, extraocular muscles intact Pulmonary: Respiratory rate is regular nonlabored Cardiovascular: Regular rate and rhythm Skin: The area on his forearm is carefully bandaged and has Silvadene on it. There is no erythema or drainage around the skin graft. Abdomen: Mildly protuberant android pattern Neurological: Alert and orient x 3. Gait and speech within normal limits Psych: Affect appropriate for current situation Performance Status: 100 Pathology: Primary, d72.9 - leukocytosis, Diagnosed 08/20/2020 (active) and Primary, d72.829 - neutrophilia, Diagnosed 08/20/2020 (active) . 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 Roe the use of postop radiation and Stephan cell carcinoma. We discussed that typically after surgery we proceed with radiation to the surgical bed in order to prevent recurrence in this area. We talked about the simulation process. We reviewed the treatment regiment. We talked about the daily treatment regiment and the risks and side effects both acute and long-term. At this point he had no additional questions. It has been just a little over a month since he had his final surgery. I have asked him to return next week or later this week with out the Silvadene on the area to proceed with simulation. He is scheduled to meet with medical oncology right after the appointment today with myself. Signed by: 09/28/2023 9:06:53 AM <<Signature on File>> Time spent with patient: 45 CPT Code: CPT Code:
== END 2023-10-02 23:59 | disposition home or self-care (01) ==
PROVIDERS: PCP Family Medicine Adult Medicine; Visit Provider Internal Medicine Medical Oncology
DX: C4A.61 Merkel cell carcinoma of right upper limb, including shoulder (principal)
CPT/HCPCS: 99203; 99205; 99215

== ENCOUNTER → 2023-10-11 13:30 | Outpatient (BNVA) | payer MEDICARE, SELFPAY | PROVIDERS: PCP Family Medicine Adult Medicine; Visit Provider Dermatology | DX: D48.5 Neoplasm of uncertain behavior of skin (principal); Z85.821 Personal history of Merkel cell carcinoma; D04.4 Carcinoma in situ of skin of scalp and neck; L82.1 Other seborrheic keratosis; L57.0 Actinic keratosis; R60.0 Localized edema; Z85.828 Personal history of other malignant neoplasm of skin | CPT/HCPCS: 11102; 17000; 99213 ==

== ENCOUNTER 2023-10-17 14:17 | Oncology outpatient (recurring) (ONCR) | payer MEDICARE, SELFPAY | END 2023-11-02 23:59 | disposition home or self-care (01) | PROVIDERS: PCP Family Medicine Adult Medicine; Visit Provider Radiology Radiation Oncology | DX: C4A.61 Merkel cell carcinoma of right upper limb, including shoulder (principal) | CPT/HCPCS: 77263; 77280; 77290; 77295; 77300; 77334; 77412 ==

== ENCOUNTER → 2023-11-08 10:57 | Outpatient (BNVA) | payer MEDICARE, SELFPAY | PROVIDERS: PCP Family Medicine Adult Medicine; Visit Provider Dermatology | DX: C44.619 Basal cell carcinoma of skin of left upper limb, including shoulder (principal); C44.612 Basal cell carcinoma of skin of right upper limb, including shoulder; D04.4 Carcinoma in situ of skin of scalp and neck; Z85.821 Personal history of Merkel cell carcinoma; Z85.828 Personal history of other malignant neoplasm of skin | CPT/HCPCS: 17262; 99214 ==

== ENCOUNTER 2024-04-10 21:21 | Observation (INO) | payer MEDICARE, SELFPAY ==
[2024-04-10] VITALS (8 sets, daily range): BP systolic 117–125; BP diastolic 79–93; PULSE 99–130; RESP 15–32; TEMP 37.2; O2SAT 98–99; BMI 26.8
[2024-04-10 21:51] LABS: ABG PCO2 41.7 mmHg (35-45); ABG PH Result 7.43 (7.35-7.45); Arterial Blood Gas Hematocrit 40.1 % (42-52); Base Excess ABG 2.7 mmol/L (-2.0-2.0); Blood Gas Allen Test Pos; Blood Gas Sample Site Radial, left; Blood Gas Sample Type Arterial; HCO3 ABG 27.4 mmol/L (22-26); Oxygen Device BIPAP; PO2 FiO2 Ratio Arterial Blood 387
--- NOTE | 2024-04-10 21:54 | XRR_ITS ---
PROCEDURE INFORMATION: Exam: XR Chest Exam date and time: 04/10/2024 9:56 PM Age: 64 years old Clinical indication: Shortness of breath; Additional info: SOB TECHNIQUE: Imaging protocol: Radiologic exam of the chest. Views: 1 view. COMPARISON: CT chest w con* [id number] 08/24/2023 9:09 AM FINDINGS: Lungs: Patchy airspace disease present involving the right perihilar region and right upper lung field. Pleural spaces: Small right pleural effusion. Heart/Mediastinum: Unremarkable. No cardiomegaly. Bones/joints: No acute bony abnormality. Old right clavicle fracture deformity. Soft tissues: Surgical john involve the right axillary region. XR/XR chest 1V portable [id number] IMPRESSION: 1. Patchy perihilar and right upper lung field airspace disease. 2. Small right pleural effusion.
--- NOTE | 2024-04-10 21:58 | ED_ITS ---
Documented by User: Phill Johansen DO 04/10/24 22:56 HPI - SOB/Dyspnea 2 General: Chief Complaint: Shortness of Breath/Dyspnea Stated Complaint: SOB Time Seen by Provider: 04/10/24 21:49 History of Present Illness: HPI Narrative: 64-year-old male brought in via EMS. Rafael álvarez reports around 7 PM he developed shortness of breath. He has a history of both COPD and uses inhalers along with fluid overload. Patient was placed on CPAP via EMS given 2 albuterol's, 1 DuoNeb and 125 Solu-Medrol en route. Patient is feeling significantly better. He does report that he was diagnosed with pneumonia about a week before Dora and is taken all his antibiotics. Patient denies any recent fever or chills. He denies any increased cough or sputum production. Associated symptoms: Deny abdominal pain, chest pain, fever(s), nausea or palpitations Related Data Previous Rx's Medication Instructions Recorded prednisone 20 mg tablet 20 mg PO DAILY #30 tabs 02/11/23 furosemide 40 mg tablet 40 mg PO QAM edema/heart #30 tabs 10/25/23 metoprolol succinate 25 mg 25 mg PO DAILY #90 tabs 11/08/23 tablet,extended release 24 hr simvastatin 40 mg tablet 40 mg PO DAILY #90 tabs 12/02/23 losartan 50 mg tablet 50 mg PO DAILY blood pressure #90 01/31/24 tabs albuterol sulfate 2.5 mg/3 mL 2.5 mg (3 mL) inhalation Q6H PRN 03/09/24 (0.083 %) solution for nebulization shortness of breath or wheezing #90 mL albuterol sulfate 90 mcg/actuation 2 puff inhalation Q6H PRN 04/06/24 aerosol inhaler (Ventolin HFA) breathing #8.5 grams fluticasone propionate 230 2 inh inhalation BID breathing #12 04/06/24 mcg-salmeterol 21 mcg/actuation grams HFA inhaler (Advair HFA) Allergies Allergy/AdvReac Type Severity Reaction Status Date / Time cat dander Allergy Mild ADR-Swelling Verified 04/06/24 11:00 of the Eye ibuprofen Allergy Unknown Unknown Verified 04/06/24 11:00 menthol Allergy Unknown Verified 04/06/24 11:00 Review of Systems 2 Const: Denies: fever(s) or chills Card: Denies: chest pain or palpitations Resp: Reports: dyspnea; Denies: change in phlegm color GI: Denies: abdominal pain or nausea Skin/Breast: Denies: rash Neuro: Denies: headache(s) PFSH ED 2 PFSH: Medical History 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 Left ureteral calculus 02/09/2023 [facility] Bilateral lower extremity edema Non-smoker COPD (chronic obstructive pulmonary disease) Pulmonary sarcoidosis Hyperlipidemia ASHD (arteriosclerotic heart disease) 2016 stents x2 HTN (hypertension) Surgical History History of back surgery H/O bilateral cataract extraction S/P PTCA (percutaneous transluminal coronary angioplasty) S/P cholecystectomy S/P skin cancer resection Family History Brother CAD (coronary artery disease) valve replaced Mother Lung disease Denies family history of Diabetes Clotting disorder Dementia Chronic kidney disease (CKD) Suicide Anesthesia complication Bleeding disorder Cancer Stroke Social History Smoking and tobacco/nicotine status: never used tobacco/nicotine Second hand smoke exposure: No Alcohol intake: never Substance/Drug Use: never Physical Exam 2 Const: COMMON NORMALS: patient oriented x3 and alert Resp: EFFORT & INSPECTION: Yes tachypneic AUSCULTATION: diminished lung sounds OTHER: Patient on BiPAP Cardio: COMMON NORMALS: regular rhythm RATE: tachycardic RHYTHM: regular rhythm Extremity: OTHER: Mild bilateral swelling Neuro: COMMON NORMALS: patient oriented x3 and no focal motor deficits S ENSORIUM/ORIENTATION: Yes alert Psych: COMMON NORMALS: mental status grossly normal, Normal thought process present and cooperative THOUGHT PROCESS: Normal thought process present Skin: OTHER: Bilateral lower extremity chronic venous stasis changes Course 2 Vital Signs: Vital signs: Vital Signs Temperature 99.0 F 04/10/24 21:42 Pulse Rate 108 H 04/10/24 23:30 Respiratory Rate 25 H 04/10/24 23:30 Blood Pressure 118/79 04/10/24 23:30 Pulse Oximetry 98 04/10/24 23:30 Oxygen Delivery Me thod CPAP 04/10/24 23:00 Fraction of Inspir ed Oxygen 40 04/10/24 21:53 MDM - SOB/Dyspnea Medical Decision Making Patient's care signed out to Dr. Mcrae at the end of my shift with x-ray results and majora the labs pending. Patient is stable and significantly better. Discussed with him attempt to wean off BiPAP with discharge planning following results. Lab Data 04/10/24 22:28 04/10/24 22:28 Labs/Radiology: Radiology Impressions Chest X-Ray 04/10/24 21:54 IMPRESSION: 1. Patchy perihilar and right upper lung field airspace disease. 2. Small right pleural effusion. Laboratory Results WBC 29.97 10^3/uL (3.29-11.43) H 04/10/24 22:28 RBC 4.07 10^6/uL (3.85-5.65) 04/10/24 22:28 Hgb 12.30 g/dL (11.27-16.99) 04/10/24 22:28 Hct 38.4 % (37-53) 04/10/24 22:28 MCV 94.3 fl (82-101) 04/10/24 22:28 MCH 30.2 pg (27-33) 04/10/24 22: MCHC 32.0 g/dL (30-55) 04/10/24 22:28 RDW 14.8 % (12.1-15.1) 04/10/24 22:28 Plt Count 296 10^3/cmm (157-399) 04/10/24 22:28 MPV 9.9 fL (7.4-10.4) 04/10/24 22:28 Neut % (Auto) 90.6 % 04/10/24 22: Lymph % (Auto) 2.5 % 04/10/24 22: [place] % (Auto) 3.7 % 04/10/24 22: Eos % (Auto) 0.2 % 04/10/24 22: Baso % (Auto) 0.3 % 04/10/24:28 Neut # (Auto) 27.16 10^3/uL (1.8-7.7) H 04/10/24 22:28 Lymph # (Auto) 0.8 10^3/uL (0.8-4.8) 04/10/24 22:28 [place] # (Auto) 1.1 10^3/uL (0.2-0.9) H 04/10/24 22:28 Eos # (Auto) 0.1 10^3/uL (0.0-0.8) 04/10/24 22:28 Baso # (Auto) 0.1 10^3/uL (0.0-0.1) 04/10/24 22: Nucleated RBC % (auto) 0 % 04/10/24 22: Nucleated RBCs # 0.0 /100WBC 04/10/24 22:28 Specimen Type Arterial 04/10/24 21:49 Sample Site Radial, left 04/10/24 21:49 ABG pH 7.43 (7.35-7.45) 04/10/24 21:49 ABG pCO2 41.7 mmHg (35-45) 04/10/24 21:49 ABG pO2 155.0 mmHg (80.0-100.0) H 04/10/24 21:49 ABG PO2/FiO2 Ratio 387 04/10/24 21:49 ABG HCO3 27.4 mmol/L (22-26) H 04/10/24 21:49 ABG Base Excess 2.7 mmol/L (-2.0-2.0) H 04/10/24 21:49 Juan Antonio Test Pos 04/10/24 21:49 Hematocrit 40.1 % (42-52) L 04/10/24 21:49 O2 Delivery Device Bipap 04/10/24 21:49 FiO2 40.0 % 04/10/24 21:49 Meeting Coordinator ID [email or web address] 04/10/24 21:49 Sodium 138 mmol/L (136-145) 04/10/24 22:28 Potassium 4.0 mmol/L (3.5-5.1) 04/10/24 22:28 Chloride 98 mmol/L (98-107) 04/10/24 22:28 Carbon Dioxide 27 mmol/L (22-29) 04/10/24 22:28 Anion Gap 17.0 (5-19) 04/10/24 22:28 BUN 28 mg/dL (8-23) H 04/10/24 22:28 Creatinine 1.4 mg/dL (0.7-1.2) H 04/10/24 22:28 GFR Calculation 51.4 mL/min (90-130) L 04/10/24 22:28 Glucose 218 mg/dL (65-115) H 04/10/24 22:28 Calculated Osmolality 298 mOsm/kg (285-295) H 04/10/24 22:28 Calcium 9.0 mg/dL (8.5-10.5) 04/10/24 22:28 Magnesium 2.0 mg/dL (1.7-2.3) 04/10/24 22:28 NT-Pro-B Natriuret Pep 51 pg/mL (0-125) 04/10/24 22:28 Discharge Plan Discharge Patient Disposition: Admitted As Inpatient Clinical Impression: Community acquired pneumonia, COPD with acute exacerbation, Leukocytosis, Dehydration, Acute renal insufficiency Condition: Stable Coding Level of Care Code ED Logistics Planning Manager for Chg Fwd Documented by User: Kinga Mcrae MD 04/11/24 00:12 HPI - SOB/Dyspnea 2 General: Chief Complaint: Shortness of Breath/Dyspnea Stated Complaint: SOB Time Seen by Provider: 04/10/24 21:49 Related Data Previous Rx's Medication Instructions Recorded prednisone 20 mg tablet 20 mg PO DAILY #30 tabs 02/11/23 furosemide 40 mg tablet 40 mg PO QAM edema/heart #30 tabs 10/25/23 metoprolol succinate 25 mg 25 mg PO DAILY #90 tabs 11/08/23 tablet,extended release 24 hr simvastatin 40 mg tablet 40 mg PO DAILY #90 tabs 12/02/23 losartan 50 mg tablet 50 mg PO DAILY blood pressure #90 01/31/24 tabs albuterol sulfate 2.5 mg/3 mL 2.5 mg (3 mL) inhalation Q6H PRN 03/09/24 (0.083 %) solution for nebulization shortness of breath or wheezing #90 mL albuterol sulfate 90 mcg/actuation 2 puff inhalation Q6H PRN 04/06/24 aerosol inhaler (Ventolin HFA) breathing #8.5 grams fluticasone propionate 230 2 inh inhalation BID breathing #12 04/06/24 mcg-salmeterol 21 mcg/actuation grams HFA inhaler (Advair HFA) Allergies Allergy/AdvReac Type Severity Reaction Status Date / Time cat dander Allergy Mild ADR-Swelling Verified 04/06/24 11:00 of the Eye ibuprofen Allergy Unknown Unknown Verified 04/06/24 11:00 menthol Allergy Unknown Verified 04/06/24 11:00 PFSH ED 2 PFSH: Medical History 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 Left ureteral calculus 02/09/2023 [facility] Bilateral lower extremity edema Non-smoker COPD (chronic obstructive pulmonary disease) Pulmonary sarcoidosis Hyperlipidemia ASHD (arteriosclerotic heart disease) 2016 stents x2 HTN (hypertension) Surgical History History of back surgery H/O bilateral cataract extraction S/P PTCA (percutaneous transluminal coronary angioplasty) S/P cholecystectomy S/P skin cancer resection Family History Brother CAD (coronary artery disease) valve replaced Mother Lung disease Denies family history of Diabetes Clotting disorder Dementia Chronic kidney disease (CKD) Suicide Anesthesia complication Bleeding disorder Cancer Stroke Social History Smoking and tobacco/nicotine status: never used tobacco/nicotine Second hand smoke exposure: No Alcohol intake: never Substance/Drug Use: never Course 2 Vital Signs: Vital signs: Vital Signs Temperature 99.0 F 04/10/24 21:42 Pulse Rate 108 H 04/10/24 23:30 Respiratory Rate 25 H 04/10/24 23:30 Blood Pressure 118/79 04/10/24 23:30 Pulse Oximetry 98 04/10/24 23:30 Oxygen Delivery Me thod CPAP 04/10/24 23:00 Fraction of Inspir ed Oxygen 40 04/10/24 21:53 MDM - SOB/Dyspnea Medical Decision Making Patient's care signed out to Dr. Mcrae at the end of my shift with x-ray results and majora the labs pending. Patient is stable and significantly better. Discussed with him attempt to wean off BiPAP with discharge planning following results. Consultation: I spoke with Dr. Saleh who is on-call for the hospitalist service who agrees to admission. Assessment and plan: COPD exacerbation Pneumonia Dehydration Leukocytosis ?Saline bolus, IV Solu-Medrol, [facility] IV doxycycline and Rocephin -I discussed the patient with the hospitalist on-call who is admitting the patient. - Discussed findings and plan with patient. Answered any questions. - All laboratory values were reviewed and interpreted personally by myself, the ER physician - All imaging was reviewed and interpreted personally by myself, the ER physician. - Evaluation and treatment of this problem were appropriate in the emergency setting Lab Data 04/10/24 22:28 04/10/24 22:28 Labs/Radiology: Radiology Impressions Chest X-Ray 04/10/24 21:54 IMPRESSION: 1. Patchy perihilar and right upper lung field airspace disease. 2. Small right pleural effusion. Laboratory Results WBC 29.97 10^3/uL (3.29-11.43) H 04/10/24 22: RBC 4.07 10^6/uL (3.85-5.65) 04/10/24 22:28 Hgb 12.30 g/dL (11.27-16.99) 04/10/24 22: Hct 38.4 % (37-53) 04/10/24 22: MCV 94.3 fl (82-101) 04/10/24 22: MCH 30.2 pg (27-33) 04/10/24 22: MCHC 32.0 g/dL (30-55) 04/10/24 22: RDW 14.8 % (12.1-15.1) 04/10/24 22: Plt Count 296 10^3/cmm (157-399) 04/10/24 22: MPV 9.9 fL (7.4-10.4) 04/10/24 22: Neut % (Auto) 90.6 % 04/10/24: Lymph % (Auto) 2.5 % 04/10/24: [place] % (Auto) 3.7 % 04/10/24 22: Eos % (Auto) 0.2 % 04/10/24: Baso % (Auto) 0.3 % 04/10/24 22: Neut # (Auto) 27.16 10^3/uL (1.8-7.7) H 04/10/24 22: Lymph # (Auto) 0.8 10^3/uL (0.8-4.8) 04/10/24 22: [place] # (Auto) 1.1 10^3/uL (0.2-0.9) H 04/10/24 22: Eos # (Auto) 0.1 10^3/uL (0.0-0.8) 04/10/24 22: Baso # (Auto) 0.1 10^3/uL (0.0-0.1) 04/10/24: Nucleated RBC % (auto) 0 % 04/10/24: Nucleated RBCs # 0.0 /100WBC 04/10/24 22: Specimen Type Arterial 04/10/24 21:49 Sample Site Radial, left 04/10/24 21:49 ABG pH 7.43 (7.35-7.45) 04/10/24 21:49 ABG pCO2 41.7 mmHg (35-45) 04/10/24 21:49 ABG pO2 155.0 mmHg (80.0-100.0) H 04/10/24 21:49 ABG PO2/FiO2 Ratio 387 04/10/24 21:49 ABG HCO3 27.4 mmol/L (22-26) H 04/10/24 21:49 ABG Base Excess 2.7 mmol/L (-2.0-2.0) H 04/10/24 21:49 Juan Antonio Test Pos 04/10/24 21:49 Hematocrit 40.1 % (42-52) L 04/10/24 21:49 O2 Delivery Device Bipap 04/10/24 21:49 FiO2 40.0 % 04/10/24 21:49 Meeting Coordinator ID [email or web address] 04/10/24 21:49 Sodium 138 mmol/L (136-145) 04/10/24 22:28 Potassium 4.0 mmol/L (3.5-5.1) 04/10/24 22:28 Chloride 98 mmol/L (98-107) 04/10/24 22:28 Carbon Dioxide 27 mmol/L (22-29) 04/10/24 22:28 Anion Gap 17.0 (5-19) 04/10/24 22:28 BUN 28 mg/dL (8-23) H 04/10/24 22:28 Creatinine 1.4 mg/dL (0.7-1.2) H 04/10/24 22:28 GFR Calculation 51.4 mL/min (90-130) L 04/10/24 22:28 Glucose 218 mg/dL (65-115) H 04/10/24 22:28 Calculated Osmolality 298 mOsm/kg (285-295) H 04/10/24 22:28 Calcium 9.0 mg/dL (8.5-10.5) 04/10/24 22:28 Magnesium 2.0 mg/dL (1.7-2.3) 04/10/24 22:28 NT-Pro-B Natriuret Pep 51 pg/mL (0-125) 04/10/24 22:28 All radiology interpretation(s) finalized by discharge Discharge Plan Discharge Patient Disposition: Admitted As Inpatient Clinical Impression: Community acquired pneumonia, COPD with acute exacerbation, Leukocytosis, Dehydration, Acute renal insufficiency Condition: Stable Coding Level of Care Code ED Logistics Planning Manager for Mirna Harman
[2024-04-10 22:41] LABS: Basophils # 0.1 10^3/uL (0.0-0.1); Basophils % 0.3 %; Eosinophils # 0.1 10^3/uL (0.0-0.8); Eosinophils % 0.2 %; Hematocrit 38.4 % (37-53); Lymphocytes # 0.8 10^3/uL (0.8-4.8); Lymphocytes % 2.5 %; Mean Corpuscular Hemoglobin 30.2 pg (27-33); Mean Corpuscular Volume 94.3 fl (82-101); Mean Platelet Volume 9.9 fL (7.4-10.4); Monocytes # 1.1 10^3/uL (0.2-0.9); Monocytes % 3.7 %; Neutrophils # 27.16 10^3/uL (1.8-7.7); Neutrophils % 90.6 %; Nucleated Red Blood Cells % 0 %; Platelet Count 296 10^3/cmm (157-399); Red Blood Count 4.07 10^6/uL (3.85-5.65); Red Cell Distribution Width 14.8 % (12.1-15.1); White Blood Count 29.97 10^3/uL (3.29-11.43)
[2024-04-10 23:09] LABS: Blood Urea Nitrogen 28 mg/dL (8-23); Carbon Dioxide 27 mmol/L (22-29); Chloride 98 mmol/L (98-107); Creatinine Clr Calc Pharmacy 52.9273; Glomerular Filtration Rate 51.4 mL/min (90-130); Glucose 218 mg/dL (65-115); NT Pro B Type Natriuretic Pept 51 pg/mL (0-125); Osmolality Calculated 298 mOsm/kg (285-295); Sodium 138 mmol/L (136-145)
[2024-04-11] VITALS (19 sets, daily range): BP systolic 102–137; BP diastolic 57–94; PULSE 86–115; RESP 15–20; TEMP 36.5–36.8; O2SAT 93–100; BMI 27.5; BMI 27.6
[2024-04-11] MEDS: albuterol 2.5 mg/3 mL Neb INHALATION (00:13)
[2024-04-11] MEDS: ipratropium-albuterol 3 mL Neb INHALATION ×4 (00:13→20:33)
[2024-04-11] MEDS: cefTRIAXone 1,000 mg SDV 1000 MG IVP (00:22)
[2024-04-11] MEDS: sodium chloride 0.9% 1,000 ML 999 ML IV (00:22)
[2024-04-11] MEDS: doxycycline 100 MG in sodium chloride 0.9% (plus) 100 ML IV (00:23)
--- NOTE | 2024-04-11 00:30 | P.HP_ITS ---
Providers/Chief Complaint 2 Admitting Physician: Dawood Saleh MD Primary Care Provider: Nasir Mazariegos MD Chief Complaint: SOB History of Present Illness Partha Roe is a 64 year old male with history of CHF, sarcoidosis, chronic steroid use of 20 mg daily for last 4 years presenting with chief complaint of worsening shortness of breath that started at 7 PM yesterday. Patient is not endorsing fever, excessive productive cough, chest pain and diarrhea. Patient was on BiPAP at the time of evaluation I have removed the BiPAP patient is not showing signs of hypercapnia respite distress, he is saturating 100% even on room air. He does not use oxygen at home. As per the last time sputum culture showed Klebsiella and Pseudomonas. I requested D-dimer, transition to IV Lasix after clinical exam Review of Systems 2 Const: Denies: fever(s) Eyes: Denies: change in vision ENMT: Denies: throat pain Card: Reports: swelling of feet/ankles, dyspnea on exertion and orthopnea; Denies: chest pain Resp: Reports: dyspnea GI: Denies: abdominal pain : Denies: flank pain Medications/Allergies Home Medications Medication Instructions Recorded Confirmed Last Taken Type prednisone 20 mg tablet 20 mg PO DAILY #30 tabs 02/11/23 04/06/24 Unknown Rx furosemide 40 mg tablet 40 mg PO QAM edema/heart #30 tabs 10/25/23 04/06/24 Unknown Rx metoprolol succinate 25 mg 25 mg PO DAILY #90 tabs 11/08/23 04/06/24 Unknown Rx tablet,extended release 24 hr simvastatin 40 mg tablet 40 mg PO DAILY #90 tabs 12/02/23 04/06/24 Unknown Rx losartan 50 mg tablet 50 mg PO DAILY blood pressure #90 01/31/24 04/06/24 Unknown Rx tabs albuterol sulfate 2.5 mg/3 mL 2.5 mg (3 mL) inhalation Q6H PRN 03/09/24 04/06/24 Unknown Rx (0.083 %) solution for nebulization shortness of breath or wheezing #90 mL albuterol sulfate 90 mcg/actuation 2 puff inhalation Q6H PRN 04/06/24 04/06/24 Unknown Rx aerosol inhaler (Ventolin HFA) breathing #8.5 grams fluticasone propionate 230 2 inh inhalation BID breathing #12 04/06/24 04/06/24 Unknown Rx mcg-salmeterol 21 mcg/actuation grams HFA inhaler (Advair HFA) Allergies Allergy/AdvReac Type Severity Reaction Status Date / Time cat dander Allergy Mild ADR-Swelling Verified 04/06/24 11:00 of the Eye ibuprofen Allergy Unknown Unknown Verified 04/06/24 11:00 menthol Allergy Unknown Verified 04/06/24 11:00 PFSH Acute 2 PFSH: Medical History 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 Left ureteral calculus 02/09/2023 [facility] Bilateral lower extremity edema Non-smoker COPD (chronic obstructive pulmonary disease) Pulmonary sarcoidosis Hyperlipidemia ASHD (arteriosclerotic heart disease) 2016 stents x2 HTN (hypertension) Surgical History History of back surgery H/O bilateral cataract extraction S/P PTCA (percutaneous transluminal coronary angioplasty) S/P cholecystectomy S/P skin cancer resection Family History Brother CAD (coronary artery disease) valve replaced Mother Lung disease Denies family history of Diabetes Clotting disorder Dementia Chronic kidney disease (CKD) Suicide Anesthesia complication Bleeding disorder Cancer Stroke Social History Smoking and tobacco/nicotine status: never used tobacco/nicotine Second hand smoke exposure: No Alcohol intake: never Substance/Drug Use: never Vitals/I&O/Wt Last Vital Signs Temp 99.0 F 04/10/24 21:42 Pulse 108 H 04/11/24 00:13 Resp 15 04/11/24 00:13 BP 118/79 04/10/24 23:30 Pulse Ox 99 04/11/24 00:13 O2 Del Method BiPAP 04/11/24 00:13 FiO2 40 04/11/24 00:13 04/10/24 04/10/24 04/11/24 14:59 22:59 06:59 Intake Total 400 / 400 Balance 400 / 400 Weight last 48 hrs Weight 75.296 kg Physical Exam 2 Narrative: Clinical signs of fluid overload Currently on 2 L saturating 100%, did not appreciate crackles or wheezing on lung auscultation No signs of encephalopathy Pleasant and cooperative Cushingoid appearance Abdominal striae GCS 15 Nonfocal neuroexam S1, S2 No active respiratory distress or chest pain A.m., PERRLA NIH 0 at the bedside Data 04/10/24 22:28 04/10/24 22:28 A&P Assessment and plan (1) HTN (hypertension): Qualifiers: Hypertension type: essential hypertension Qualified Code(s): I10 - Essential (primary) hypertension (2) Chronic diastolic heart failure: (3) ASHD (arteriosclerotic heart disease): (4) Acute renal insufficiency: (5) Compression fracture: (6) Pulmonary sarcoidosis: (7) Chronic obstructive pulmonary disease: Qualifiers: COPD type: chronic bronchitis Chronic bronchitis type: mixed simple and mucopurulent Qualified Code(s): J41.8 - Mixed simple and mucopurulent chronic bronchitis (8) COPD with acute exacerbation: (9) Bilateral lower extremity edema: Plan Acute COPD exacerbation with underlying sarcoidosis As per the previous sputum culture showed Pseudomonas and Klebsiella Change antibiotic to cefepime and Zosyn Chronic steroid use: Immunocompromise Require sputum culture DuoNeb Acute hypoxia currently requiring 2 L BiPAP removed in the ER no active Rester distress no signs of hypercapnia Diastolic CHF acute exacerbation will transition to IV Lasix instead of p.o. Abnormal D-dimer: Request CTA chest and venous Doppler to rule out thromboembolic disease As per the patient has been diagnosed with a clot in the lung few years ago but he is currently not on any anticoagulating agent MICHELLE: Likely cardiorenal anticipating pulmonary diuresis Full code Cardiac diet Will start patient on therapeutic Lovenox for the plan will be made after reviewing CTA report Attestations 2 Medical Necessity Statement*: Anticipating discharge within 48 hours Diagnoses Essential hypertension I10 Hypertension type: essential hypertension Chronic diastolic heart failure I50.32 ASHD (arteriosclerotic heart disease) I25.10 Acute renal insufficiency N28.9 Compression fracture Pulmonary sarcoidosis D86.0 Mixed simple and mucopurulent chronic bronchitis J41.8 COPD type: chronic bronchitis Chronic bronchitis type: mixed simple and mucopurulent COPD with acute exacerbation J44.1 Bilateral lower extremity edema R60.0
[2024-04-11 00:45] LABS: D Dimer 1.49 ug/mLFEU (0-0.59)
--- NOTE | 2024-04-11 00:57 | CTR_ITS ---
PROCEDURE INFORMATION: Exam: CTA Chest With Contrast Exam date and time: 04/11/2024 1:19 AM Age: 64 years old Clinical indication: Shortness of breath; Patient HX: Pulmonary sarcoidosis, HTN; Additional info: Copd exacerbation TECHNIQUE: Imaging protocol: Computed tomographic angiography of the chest with contrast. Exam focused on the arteries. 3D rendering (Not supervised by radiologist): MIP and/or 3D reconstructed images were created by the technologist. Radiation optimization: All CT scans at this facility use at least one of these dose optimization techniques: automated exposure control; mA and/or kV adjustment per patient size (includes targeted exams where dose is matched to clinical indication); or iterative reconstruction. Contrast material: OMNI 350; Contrast volume: 75 ml; Contrast route: INTRAVENOUS (IV); COMPARISON: CT chest w con* [id number] 08/24/2023 9:09 AM RADIATION DOSE METRICS: Total DLP (mGy-cm): 451.52 FINDINGS: Pulmonary arteries: Right lower lobe pulmonary emboli present no additional filling defects identified. No right heart strain. The RV to LV ratio is approximately 0.7. Aorta: Calcific plaque involves the thoracic aorta and coronary arteries. The thoracic aorta is free of aneurysm and dissection. Lungs: Mild diffuse bronchial wall thickening. Lungs are free of consolidation. Pleural spaces: Unremarkable. No pneumothorax. No pleural effusion. Heart: Unremarkable. No cardiomegaly. No pericardial effusion. Lymph nodes: See Soft tissues finding. Bones/joints: There are multiple chronic compression fractures involving the T4 through T10 vertebral bodies. Changes from kyphoplasty involves the T10 vertebral body. Soft tissues: There is a fluid collection within the right axilla measuring 3.9 x 3.1 cm. There are multiple surgical clips within the left axilla from presumed lymph node dissection. This fluid collection may reflect a seroma, hematoma or lymphocele. CT/CT angio chest PE protcl [id number] IMPRESSION: 1. Right lower lobe segmental pulmonary emboli without right heart strain. 2. Mild diffuse bronchial wall thickening suggesting bronchitis. 3. Atherosclerosis including coronary artery calcification. 4. Right axillary fluid collection which may reflect a hematoma, seroma or lymphocele. Attempts were made to notify the ordering physician at time of interpretation.
--- NOTE | 2024-04-11 00:57 | USCV_ITS ---
Partha Roe Age: 64 Gender: M : 1960 Exam Date: 04/11/2024 03:09 Ordering Phys: Dawood Saleh MD Technologist: BRIANA Exam Location: [facility] [place] Indication: Swelling HISTORY: Swelling, shortness of breath, history of COPD, recently diagnosed with pneumonia PROCEDURES: Venous duplex imaging was performed in bilateral lower extremities. The following venous structures were evaluated: common femoral vein, profunda vein, proximal portion of the greater saphenous vein, superficial femoral vein, and the popliteal vein. In addition, the posterior tibial and peroneal veins were evaluated. FINDINGS: Normal 2-D Doppler and augmentation and compressibility throughout the lower extremity venous structures. Additional imaging through the proximal calf veins also reveals no thrombus. Limited evaluation of the greater saphenous vein is patent with no thrombus. CONCLUSIONS No DVT bilateral lower extremities. Dr. Marianne Galvan DO (Electronically Signed) Final Date: 11 April 2024 06:55 S
[2024-04-11 01:04] LABS: NT Pro B Type Natriuretic Pept 50 pg/mL (0-125)
[2024-04-11] MEDS: iohexol 350 mg/mL 500 mL Btl (per mL) IV (01:32)
[2024-04-11 03:13] LABS: Adenovirus Not Detected (NOT DETECT); Chlamydia Pneumoniae Not Detected (NOT DETECT); Coronavirus 229E,HKU1,NL63,OC4 Not Detected (NOT DETECT); Human Metapneumovirus Not Detected (NOT DETECT); Human Rhinovirus/Enterovirus Not Detected (NOT DETECT); Influenza A Not Detected (NOT DETECT); Influenza A H1 Not Detected (NOT DETECT); Influenza A H1-2009 Not Detected (NOT DETECT); Influenza A H3 Not Detected (NOT DETECT); Influenza B Not Detected (NOT DETECT); Mycoplasma Pneumoniae Not Detected (NOT DETECT); Parainfluenza Virus Type 1 Not Detected (NOT DETECT); Parainfluenza Virus Type 2 Not Detected (NOT DETECT); Parainfluenza Virus Type 3 Not Detected (NOT DETECT); Parainfluenza Virus Type 4 Not Detected (NOT DETECT); Respiratory Syncytial Virus A Not Detected (NOT DETECT); Respiratory Syncytial Virus B Not Detected (NOT DETECT); SARS-COV-2 Not Detected (NOT DETECT)
[2024-04-11] MEDS: cefepime 2,000 mg SDV 2000 MG IVP ×2 (03:33→14:55)
[2024-04-11] MEDS: enoxaparin 80 mg/0.8 mL Syringe SUBCUT ×2 (03:33→17:05)
[2024-04-11] MEDS: piperacillin-tazobactam 3.375 GM in sodium chloride 0.9% (plus) 50 ML IV ×2 (03:33→12:33)
[2024-04-11 04:15] LABS: MRSA PCR OZH (swab) NOT DETECTED (Negative)
--- NOTE | 2024-04-11 05:24 | USCV_ITS ---
Partha Roe Age: 64 Gender: M : 1960 Exam Date: 04/11/2024 08:30 Ordering Phys: Dawood Saleh MD Technologist: Exam [place] [facility] [place] Indication: pe BP: 128 / 75 HR: 111 Rhythm: Sinus Technical Quality: Adequate MEASUREMENTS (Male / Female) Normal Values 2D ECHO LV Ejection Fraction MOD 4C 53.5 % LV Ejection Fraction MOD 2C 54.2 % LV Ejection Fraction 2C AL 54.8 % RA Systolic Volume 4C AL 22.1 ml RA Systolic Volume 4C MOD 21.7 ml LA Sys Volume AL 36.5 cm cubed LA Sys Volume Index AL 17.8 cm cubed/m squared IVC Diameter 1.0 cm DOPPLER AV Peak Velocity 136.0 cm/s LVOT Peak Velocity 110.0 cm/s MV Peak Velocity 114.0 cm/s MV Area PHT 4.0 cm squared Mitral E to A Ratio 0.9 TR Peak Velocity 243.0 cm/s TR Peak Gradient 23.6 mmHg TV Peak E Velocity 93.0 cm/s FINDINGS Left Ventricle Normal LV size and ejection fraction of 55%.. No gross wall motion abnormalities.Grade I/IV diastolic dysfunction (abnormal relaxation filling pattern), normal to mildly elevated filling pressures. Mild left ventricular hypertrophy. Right Ventricle The right ventricle is normal in size and function. Right Atrium The right atrium is normal in size. Left Atrium The left atrium is normal in size. Mitral Valve No gross abnormalities noted Aortic Valve Thickened aortic valve. Tricuspid Valve No gross abnormalities noted Pulmonic Valve Pulmonic valve not well visualized. Pericardium No pericardial effusion. Aorta Normal aortic annulus size. IVC Normal inferior vena cava. CONCLUSIONS Normal LV size and ejection fraction of 55%.. No gross wall motion abnormalities.Grade I/IV diastolic dysfunction (abnormal relaxation filling pattern), normal to mildly elevated filling pressures. Mild left ventricular hypertro. Thickened aortic valve. There is no pericardial effusion. There are no intracardiac masses. Compared to the study from 04/07/2022, there may not be significant change Dr Tunde Browne MD FAC (Electronically Signed) Final Date: 11 April 2024 11:53 S
--- NOTE | 2024-04-11 05:24 | ECG_ITS ---
[facility] Test Date: 2024-04-10 Pat Name: Partha Roe Department: Room: 262 Gender: Male Documentation Engineer: : 1960 Requested By: Dawood Saleh Order Number: [id number] Sherrell MD: Tunde Browne M.D. Measurements Intervals [place] Rate: 131 P: 78 [place]: 131 QRS: 56 QRSD: 82 T: 91 QT: 294 QTc: 435 Interpretive Statements SINUS TACHYCARDIA ABNORMAL RHYTHM ECG INTERPRETATION BASED ON A DEFAULT AGE OF 40 YEARS Compared to ECG 01/28/2019 03:35:02 Sinus rhythm no longer present Electronically Signed On 04-11-2024 17:22:35 DOG DAY CARE ATTENDANT by Tunde Browne M.D. [email or web address]
[2024-04-11] MEDS: FUROsemide 10 mg/mL SDV 2mL 20 MG IVP (06:11)
[2024-04-11 06:50] LABS: Basophils % 0.2 %; Hematocrit 37.5 % (37-53); Lymphocytes # 0.5 10^3/uL (0.8-4.8); Lymphocytes % 2.6 %; Mean Corpuscular HGB Conc 31.7 g/dL (30-55); Mean Corpuscular Hemoglobin 31.2 pg (27-33); Mean Corpuscular Volume 98.4 fl (82-101); Mean Platelet Volume 10.1 fL (7.4-10.4); Monocytes # 0.2 10^3/uL (0.2-0.9); Monocytes % 1.1 %; Neutrophils # 16.84 10^3/uL (1.8-7.7); Neutrophils % 93.7 %; Nucleated Red Blood Cells % 0 %; Platelet Count 278 10^3/cmm (157-399); Red Blood Count 3.81 10^6/uL (3.85-5.65); Red Cell Distribution Width 15.1 % (12.1-15.1); White Blood Count 17.98 10^3/uL (3.29-11.43)
[2024-04-11 07:07] LABS: Anion Gap 18.2 (5-19); Blood Urea Nitrogen 26 mg/dL (8-23); Carbon Dioxide 21 mmol/L (22-29); Chloride 102 mmol/L (98-107); Creatinine Clr Calc Pharmacy 75.1794; Glomerular Filtration Rate 75.7 mL/min (90-130); Glucose 227 mg/dL (65-115); Osmolality Calculated 294 mOsm/kg (285-295); Potassium 5.2 mmol/L (3.5-5.1); Sodium 136 mmol/L (136-145)
[2024-04-11 07:11] LABS: Troponin(5th) Baseline 46 ng/L (0-15)
--- NOTE | 2024-04-11 07:24 | ECG_ITS ---
[facility] Date: 2024-[facility]11 Pat Name: Partha Roe Department: Room: 262 Gender: Male Workers' Compensation Claims Examiner: : 1960 Requested By: Dawood Saleh Order Number: [id number] Reading MD: Tunde Browne M.D. Measurements Intervals [place] Rate: 102 P: 0 [place]: 0 QRS: 48 QRSD: 85 T: 60 QT: 321 QTc: 419 Interpretive Statements ATRIAL FIBRILLATION WITH RAPID VENTRICULAR RESPONSE LOW QRS VOLTAGE IN PRECORDIAL LEADS [QRS DEFLECTION < 1.0 mV IN CHEST LEADS] ABNORMAL RHYTHM ECG Compared to ECG 04/10/2024 21:37:15 Low QRS voltage now present Sinus tachycardia no longer present Electronically Signed On 04-11-2024 17:38:23 FASHION ADVISER by Tunde Browne M.D. [email or web address]
[2024-04-11] MEDS: predniSONE 20 mg Tablet PO (07:55)
[2024-04-11] MEDS: metoprolol succinate ER (24 HR) 25 mg Tablet PO (07:55)
[2024-04-11 08:56] LABS: Troponin 5 2HR 50.47 ng/L (0-15); Troponin 5 2HR Delta 4.47 ABS# (0-10)
--- NOTE | 2024-04-11 10:56 | ECG_ITS ---
[facility]: 2024-[facility]11 Pat Name: Partha Roe Department: Room: 262 Gender: Male Inspector Brake Lining: : 1960 Requested By: Dawood Saleh Order Number: [id number] Sherrell MD: Tunde Browne M.D. Measurements Intervals [place] Rate: 86 P: 39 [place]: 130 QRS: 30 QRSD: 93 T: 70 QT: 339 QTc: 406 Interpretive Statements SINUS RHYTHM WITH SINUS ARRHYTHMIA LOW QRS VOLTAGE IN PRECORDIAL LEADS [QRS DEFLECTION < 1.0 mV IN CHEST LEADS] Compared to ECG 04/11/2024 08:21:39 Atrial fibrillation no longer present Electronically Signed On 04-11-2024 17:39:41 EXECUTIVE DIRECTOR GLOBAL BRAND MARKETING by Tunde Browne M.D. [id number]
[2024-04-11 13:54] LABS: Troponin 5 6HR 49.87 ng/L (0-15); Troponin 5 6HR Delta 3.87 ng/L (0-12)
--- NOTE | 2024-04-11 14:01 | P.MISC_ITS ---
Miscellaneous Note Purpose of Documentation: Overnight labs and H&P reviewed. 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 Last PET/CT in August 2023 without evidence of metabolically active malignancy. He underwent radiation therapy in October 2023. He was brought to the emergency room last night with worsening shortness of breath. Initially required BiPAP support. Currently he is on supplemental O2 at 2 L/min. CTA of the chest showed right lower lobe segmental PE and mild diffuse bronchial wall thickening suggesting bronchitis. There is a right axillary fluid collection reflective of either hematoma seroma or lymphocele, not unexpected with his history of carcinoma as noted above. Postradiation?? Lower extremity duplex is negative. Echocardiogram shows LVEF of 55%, no gross wall motion abnormalities. Mild left ventricular hypertrophy. No right heart strain. Continue Lovenox 1 mg/kg subcutaneously every 24 hours. Patient does not need dual antibiotic coverage with cefepime and piperacil constantino/tazobactam. reports a recent history of Pseudomonas pneumonia in March 2024. Currently CTA shows some bronchitis, therefore maintain Coverage with cefepime alone for now until sputum cx results.Add DuoNeb and budesonide inhalation.
[2024-04-11] MEDS: atorvastatin 40 mg Tablet PO (17:05)
[2024-04-11] MEDS: budesonide 0.5 mg/2 mL Neb INHALATION (20:33)
[2024-04-12] VITALS (10 sets, daily range): BP systolic 122–126; BP diastolic 70–79; PULSE 89–109; RESP 16–18; TEMP 36.3–36.8; O2SAT 93–98
[2024-04-12] MEDS: ipratropium-albuterol 3 mL Neb INHALATION ×2 (02:36→07:56)
[2024-04-12] MEDS: cefepime 2,000 mg SDV 2000 MG IVP (03:02)
[2024-04-12] MEDS: enoxaparin 80 mg/0.8 mL Syringe SUBCUT (06:47)
[2024-04-12] MEDS: FUROsemide 10 mg/mL SDV 2mL 20 MG IVP (06:47)
[2024-04-12] MEDS: budesonide 0.5 mg/2 mL Neb INHALATION (07:55)
[2024-04-12] MEDS: metoprolol succinate ER (24 HR) 25 mg Tablet PO (08:56)
[2024-04-12] MEDS: predniSONE 20 mg Tablet PO (08:57)
[2024-04-12 12:28] LABS: Basophils # 0.1 10^3/uL (0.0-0.1); Basophils % 0.3 %; Eosinophils # 0.1 10^3/uL (0.0-0.8); Eosinophils % 0.5 %; Hematocrit 37.6 % (37-53); Lymphocytes # 0.7 10^3/uL (0.8-4.8); Lymphocytes % 3.5 %; Mean Corpuscular HGB Conc 30.9 g/dL (30-55); Mean Corpuscular Hemoglobin 30.3 pg (27-33); Mean Corpuscular Volume 98.2 fl (82-101); Mean Platelet Volume 10.3 fL (7.4-10.4); Monocytes # 0.9 10^3/uL (0.2-0.9); Monocytes % 4.3 %; Neutrophils # 17.47 10^3/uL (1.8-7.7); Neutrophils % 89.3 %; Nucleated Red Blood Cells % 0 %; Platelet Count 266 10^3/cmm (157-399); Red Blood Count 3.83 10^6/uL (3.85-5.65); Red Cell Distribution Width 15.2 % (12.1-15.1); White Blood Count 19.55 10^3/uL (3.29-11.43)
[2024-04-12 12:47] LABS: Alanine Aminotransferase 12 U/L (0-41); Albumin Level 3.7 g/dL (3.5-5.2); Alkaline Phosphatase 71 U/L (40-130); Anion Gap 19.2 (5-19); Aspartate Amino Transferase 11 U/L (0-40); Blood Urea Nitrogen 25 mg/dL (8-23); Calcium 9.2 mg/dL (8.5-10.5); Carbon Dioxide 23 mmol/L (22-29); Chloride 100 mmol/L (98-107); Creatinine Clr Calc Pharmacy 75.7298; Globulin 2.3 g/dL (1.3-4.6); Glomerular Filtration Rate 75.7 mL/min (90-130); Glucose 244 mg/dL (65-115); Osmolality Calculated 298 mOsm/kg (285-295); Potassium 4.2 mmol/L (3.5-5.1); Sodium 138 mmol/L (136-145); Total Bilirubin 0.2 mg/dL (0.15-1.2)
[2024-04-12 13:22] LABS: Estmated Average Glucose 154
--- NOTE | 2024-04-12 14:17 | PM.DCS ---
Discharge Providers Date of Admission: 04/11/24 02:38 Date of Discharge: April 12, 2024 Attending Provider at Admission: Duran Walton MD Attending Provider at Discharge: Shaylee Ritchie MD Primary Care Provider: Nasir Mazariegos MD Diagnoses at Discharge Discharge Diagnosis (1) HTN (hypertension): Status: Acute Qualifiers: Hypertension type: essential hypertension Qualified Code(s): I10 - Essential (primary) hypertension (2) Chronic diastolic heart failure: Status: Acute (3) ASHD (arteriosclerotic heart disease): Status: Acute Permanent problem details: 2016 stents x2 (4) Acute renal insufficiency: Status: Acute (5) Compression fracture: Status: Acute (6) Pulmonary sarcoidosis: Status: Acute (7) Chronic obstructive pulmonary disease: Status: Acute Qualifiers: COPD type: chronic bronchitis Chronic bronchitis type: mixed simple and mucopurulent Qualified Code(s): J41.8 - Mixed simple and mucopurulent chronic bronchitis Permanent problem details: Centrilobular emphysema, Sarcoidosis (8) COPD with acute exacerbation: Status: Acute (9) Bilateral lower extremity edema: Status: Acute Reason for Visit Reason for Visit: SOB Hospital Course Hospital Course 64-year-old male with a past medical history of 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 daily along with Bactrim prophylaxis, recent history of Pseudomonas pneumonia in March 2024 at [facility]. He presented to the emergency room with chief complaints of worsening shortness of breath and tachycardia. He was diagnosed with pulmonary embolism based on CTA. Study was negative for consolidation but showed bronchial wall thickening consistent with bronchitis. Patient has a known history of chronic bronchitis. For the PE he was started on anticoagulation with Lovenox 1 mg/kg subcutaneously every 12 hours. At the time of discharge she has been transitioned to Eliquis 10 mg p.o. twice daily for 7 days followed by 5 mg p.o. twice daily. It is likely that patient will need to remain on lifelong anticoagulation as this is a second lifetime episode of PE without an obvious precipitant. Initially patient was also started on antibiotics due to concern for pneumonia, however his CTA was negative for any consolidation. Patient had a leukocytosis of 29,000 upon admission which corrected quickly back to his baseline between 17-20,000. In reviewing his past numbers it appears patient has had chronic leukocytosis dating back to at least 2020. This may be related to steroid use. Patient is already established with hematology oncology. This can be evaluated further. He remained afebrile during the course of his admission. Did not have any cough or sputum production or other clinical signs of pneumonia. He may potentially have had acute on chronic COPD exacerbation. He is recommended to continue his nebulization with albuterol once he gets home. With initiation of anticoagulation patient feels much better today at the time of discharge. Upon admission he was requiring supplemental oxygen at 1 to 2 L/min. Home O2 evaluation was completed prior to discharge and patient was able to be weaned off. He does not need supplemental O2 at the time of discharge today. CT of the chest incidentally noted a right axillary swelling. Patient states he has noted a cystic swelling in the axilla which has been waxing and waning depending on the degree of exertion. 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 He missed his last scheduled follow-up with oncology as his son has recently . He is recommended to complete his overdue PET scan and follow-up with hematology/oncology within 2 to 3 weeks of discharge. Patient had HbA1c tested as his fingerstick blood sugars were ranging over 200. HbA1c returned at 7.0. He has been started on Jardiance 10 mg p.o. daily for new diagnosis of diabetes mellitus. Instructed to follow up with PCP in the next 7-10 days Physical Exam Narrative: General: No acute distress, AO x3 HEENT: PERRLA, pupils bilaterally equal and reactive, pallors not present Chest: Normal vesicular breath sounds, no added sounds, equal good air entry bilaterally CVS: S1-S2 regular, no murmurs, no tachycardia, no gallops, no rubs Abdomen: Soft, nontender, no organomegaly, bowel sounds present Neuro: No focal deficits, no facial deformity, AO x3, power 5/5 in all limbs Discharge Data Studies Completed and Pending Completed Studies During Hospitalization Category Date Time Status CTA chest [CT angio chest PE protcl [id number]] Routine Cat Scan 04/11/24 00:57 Completed XR chest 1V portable [id number] Stat Exams 04/10/24 21:54 [place] [id number] Routine Ultrasound 04/11/24 00:57 Completed CV. echo complete* [id number] Routine Ultrasound 04/11/24 05:24 Completed Radiology Impressions Chest X-Ray 04/10/24 21:54 IMPRESSION: 1. Patchy perihilar and right upper lung field airspace disease. 2. Small right pleural effusion. Chest CTA 04/11/24 00:57 IMPRESSION: 1. Right lower lobe segmental pulmonary emboli without right heart strain. 2. Mild diffuse bronchial wall thickening suggesting bronchitis. 3. Atherosclerosis including coronary artery calcification. 4. Right axillary fluid collection which may reflect a hematoma, seroma or lymphocele. Attempts were made to notify the ordering physician at time of interpretation. ADDENDUM: 04/11/24 0212 COMMENT: THIS REPORT CONTAINS FINDINGS THAT MAY BE CRITICAL TO PATIENT CARE. The exam findings were verbally communicated by me to DURAN WALTON via telephone conference at 2:11 AM FRIT COATER on 04/11/2024. The findings were acknowledged and understood. Laboratory Results WBC 19.55 10^3/uL (3.29-11.43) H 04/12/24 12:14 RBC 3.83 10^6/uL (3.85-5.65) L 04/12/24 12:14 Hgb 11.60 g/dL (11.27-16.99) 04/12/24 12:14 Hct 37.6 % (37-53) 04/12/24 12:14 MCV 98.2 fl (82-101) 04/12/24 12:14 MCH 30.3 pg (27-33) 04/12/24 12:14 MCHC 30.9 g/dL (30-55) 04/12/24 12:14 RDW 15.2 % (12.1-15.1) H 04/12/24 12:14 Plt Count 266 10^3/cmm (157-399) 04/12/24 12:14 MPV 10.3 fL (7.4-10.4) 04/12/24 12:14 Neut % (Auto) 89.3 % 04/12/24 12:14 Lymph % (Auto) 3.5 % 04/12/24 12:14 [place] % (Auto) 4.3 % 04/12/24 12:14 Eos % (Auto) 0.5 % 04/12/24 12:14 Baso % (Auto) 0.3 % 04/12/24 12:14 Neut # (Auto) 17.47 10^3/uL (1.8-7.7) H 04/12/24 12:14 Lymph # (Auto) 0.7 10^3/uL (0.8-4.8) L 04/12/24 12:14 [place] # (Auto) 0.9 10^3/uL (0.2-0.9) 04/12/24 12:14 Eos # (Auto) 0.1 10^3/uL (0.0-0.8) 04/12/24 12:14 Baso # (Auto) 0.1 10^3/uL (0.0-0.1) 04/12/24 12:14 Nucleated RBC % (auto) 0 % 04/12/24 12:14 Nucleated RBCs # 0.0 /100WBC 04/12/24 12:14 D-Dimer 1.49 ug/mLFEU (0-0.59) H 04/10/24 22:28 Specimen Type Arterial 04/10/24 21:49 Sample Site Radial, left 04/10/24 21:49 ABG pH 7.43 (7.35-7.45) 04/10/24 21:49 ABG pCO2 41.7 mmHg (35-45) 04/10/24 21:49 ABG pO2 155.0 mmHg (80.0-100.0) H 04/10/24 21:49 ABG PO2/FiO2 Ratio 387 04/10/24 21:49 ABG HCO3 27.4 mmol/L (22-26) H 04/10/24 21:49 ABG Base Excess 2.7 mmol/L (-2.0-2.0) H 04/10/24 21:49 Juan Antonio Test Pos 04/10/24 21:49 Hematocrit 40.1 % (42-52) L 04/10/24 21:49 O2 Delivery Device Bipap 04/10/24 21:49 FiO2 40.0 % 04/10/24 21:49 Supply Crib Attendant ID [email or web address] 04/10/24 21:49 Sodium 138 mmol/L (136-145) 04/12/24 12:14 Potassium 4.2 mmol/L (3.5-5.1) 04/12/24 12:14 Chloride 100 mmol/L (98-107) 04/12/24 12:14 Carbon Dioxide 23 mmol/L (22-29) 04/12/24 12:14 Anion Gap 19.2 (5-19) H 04/12/24 12:14 BUN 25 mg/dL (8-23) H 04/12/24 12:14 Creatinine 1.0 mg/dL (0.7-1.2) 04/12/24 12:14 GFR Calculation 75.7 mL/min (90-130) L 04/12/24 12:14 Glucose 244 mg/dL (65-115) H 04/12/24 12:14 Estimat Average Glucose 154 04/12/24 12:14 Hemoglobin A1c 7.0 % (4.0-6.0) H 04/12/24 12:14 Calculated Osmolality 298 mOsm/kg (285-295) H 04/12/24 12:14 Calcium 9.2 mg/dL (8.5-10.5) 04/12/24 12:14 Magnesium 2.0 mg/dL (1.7-2.3) 04/11/24 06:27 Total Bilirubin 0.2 mg/dL (0.15-1.2) 04/12/24 12:14 AST 11 U/L (0-40) 04/12/24 12:14 ALT 12 U/L (0-41) 04/12/24 12:14 Alkaline Phosphatase 71 U/L (40-130) 04/12/24 12:14 Troponin T Baseline 46 ng/L (0-15) H 04/11/24 06:27 Troponin T 120 Minute 50.47 ng/L (0-15) H 04/11/24 08:25 Delta Troponin T 4.47 ABS# (0-10) 04/11/24 08: Troponin T Hi Sens 6Hr 49.87 ng/L (0-15) H 04/11/24 13:29 Troponin T Hi Sens 6Hr Delta 3.87 ng/L (0-12) 04/11/24 13:29 NT-Pro-B Natriuret Pep 50 pg/mL (0-125) 04/10/24 22:28 NT-Pro-B Natriuret Pep 51 pg/mL (0-125) 04/10/24 22:28 Total Protein 6.0 g/dL (6.6-8.7) L 04/12/24 12:14 Albumin 3.7 g/dL (3.5-5.2) 04/12/24 12:14 Globulin 2.3 g/dL (1.3-4.6) 04/12/24 12:14 Nasal MRSA (PCR) Not detected (Negative) 04/11/24 03:00 Adenovirus (PCR) Not detected (NOT DETECT) 04/11/24 01:11 C. pneumoniae DNA (PCR) Not detected (NOT DETECT) 04/11/24 01:11 Coronavirus 229E (PCR) Not detected (NOT DETECT) 04/11/24 01:11 Human Metapneumovir PCR Not detected (NOT DETECT) 04/11/24 01:11 Influenza A (H1) PCR Not detected (NOT DETECT) 04/11/24 01:11 Influ A (H1/09) PCR Not detected (NOT DETECT) 04/11/24 01:11 Influenza A (H3) PCR Not detected (NOT DETECT) 04/11/24 01:11 Influenza Type A (PCR) Not detected (NOT DETECT) 04/11/24 01:11 Influenza Type B (PCR) Not detected (NOT DETECT) 04/11/24 01:11 M. pneumoniae (PCR) Not detected (NOT DETECT) 04/11/24 01:11 Parainfluenza 1 (PCR) Not detected (NOT DETECT) 04/11/24 01:11 Parainfluenza 2 (PCR) Not detected (NOT DETECT) 04/11/24 01:11 Parainfluenza 3 (PCR) Not detected (NOT DETECT) 04/11/24 01:11 Parainfluenza 4 (PCR) Not detected (NOT DETECT) 04/11/24 01:11 RSV Type A (PCR) Not detected (NOT DETECT) 04/11/24 01:11 RSV Type B (PCR) Not detected (NOT DETECT) 04/11/24 01:11 Entero/Rhino (PCR) Not detected (NOT DETECT) 04/11/24 01:11 SARS-CoV-2 (PCR) Not detected (NOT DETECT) 04/11/24 01:11 Vitals Last Vital Signs Temp 98.2 F 04/12/24 13:11 Pulse 95 04/12/24 13:11 Resp 16 04/12/24 13:11 BP 126/79 04/12/24 13:11 Pulse Ox 98 04/12/24 13:11 O2 Del Method Nasal Cannula 04/12/24 11:57 O2 Flow Rate 2 04/12/24 08:00 FiO2 40 04/11/24 00:13 Discharge Plan Discharge Patient Disposition: Home Condition: Stable Prescriptions: New Eliquis 5 mg tablet 5 mg PO BID 90 Days Qty: 180 0RF Rx Instructions: take 10mg bid for 7 days, then reduce to 5mg bid Jardiance 10 mg tablet 10 mg PO DAILY 30 Days Qty: 30 0RF Continued albuterol sulfate [Ventolin HFA] 90 mcg/actuation HFA aerosol inhaler 2 puff INHALATION Q6H PRN (Reason: breathing) Qty: 8.5 1RF prednisone 20 mg tablet 20 mg PO DAILY Qty: 30 0RF albuterol sulfate 2.5 mg /3 mL (0.083 %) solution for nebulization 2.5 mg inhalation Q6H PRN (Reason: shortness of breath or wheezing) Qty: 90 0RF furosemide 40 mg tablet 40 mg PO QAM Qty: 30 5RF losartan 50 mg tablet 50 mg PO DAILY Qty: 90 1RF sulfamethoxazole-trimethoprim [Bactrim DS] 800-160 mg Tablet See Rx Instructions .ROUTE .COMPLEX Rx Instructions: 1 tab orally every other day simvastatin 40 mg Tablet 40 mg PO QPM metoprolol succinate 25 mg Tablet Extended Release 24 Hr 12.5 mg PO BID Discharge Orders: Discharge Order (Routine); Ordered 04/12/24 Ordered By: Shaylee Ritchie Referrals: Nasir Mazariegos MD [Primary Care Provider] - 7-10 days (We have notified your physician's clinic of the need for a follow-up appointment to be scheduled. If you have not heard from them within the next 2 business days, please call them directly. ) Elder Catalan MD [Hospitalist] - (We have notified your physician's clinic of the need for a follow-up appointment to be scheduled. If you have not heard from them within the next 2 business days, please call them directly. ) Discharge Diet: Usual diet Discharge Activity: Resume usual activity Patient Instructions: Apixaban (By mouth), Pulmonary Embolism (GEN), Dehydration (GEN), Opioid Safety Discharge Attestations Time Spent in Discharge Care*: greater than 30 min Quality Metrics Clinical Quality Measures [ Venous Thromboembolism { Contraindication to Overlap Therapy: None; Overlap threrpy ordered; VTE Discharge Education: Education about anticoagulant therapy/Care Notes given; Deep Vein Thrombosis/Pulmonary Embolism Present on Admission: Yes;}] Coding Level of Care Code Acute Code for Chg Fwd Diagnoses Essential hypertension I10 Hypertension type: essential hypertension Chronic diastolic heart failure I50.32 ASHD (arteriosclerotic heart disease) I25.10 Acute renal insufficiency N28.9 Compression fracture Pulmonary sarcoidosis D86.0 Mixed simple and mucopurulent chronic bronchitis J41.8 COPD type: chronic bronchitis Chronic bronchitis type: mixed simple and mucopurulent COPD with acute exacerbation J44.1 Bilateral lower extremity edema R60.0
== END 2024-04-12 13:20 | disposition home or self-care (01) ==
LOC: ER 04-11 00:26 → MEDSURG 04-11 02:52
PROVIDERS: Student in an Organized Health Care Education/Training Program; Admitting Provider Internal Medicine; Emergency Provider Emergency Medicine; PCP Family Medicine Adult Medicine; Visit Provider Student in an Organized Health Care Education/Training Program
DX: J44.1 Chronic obstructive pulmonary disease with (acute) exacerbation (principal); I11.0 Hypertensive heart disease with heart failure; I50.32 Chronic diastolic (congestive) heart failure; I25.10 Atherosclerotic heart disease of native coronary artery without angina pectoris; N28.9 Disorder of kidney and ureter, unspecified; D86.0 Sarcoidosis of lung; R60.0 Localized edema; Z85.9 Personal history of malignant neoplasm, unspecified; Z79.52 Long term (current) use of systemic steroids; I26.99 Other pulmonary embolism without acute cor pulmonale; E78.5 Hyperlipidemia, unspecified
CPT/HCPCS: 36415; 71045; 71275; 80048; 80053; 82803; 83036; 83735; 83880; 84484; 85025; 85378; 87486; 87581; 87633; 93005; 93306; 93970; 94640; 94660; 94760; 96365; 96372; 96375; 99291; G0378; J0692; J0696; J1650; J1940; J2543; J3490; J7030; J7512; J7613; J7626

== ENCOUNTER 2024-05-01 01:03 | Emergency (ER) | payer MEDICARE, SELFPAY ==
[2024-05-01] VITALS (7 sets, daily range): BP systolic 97–141; BP diastolic 63–90; PULSE 63–86; RESP 16–23; TEMP 36.8; O2SAT 90–97; BMI 25.8
--- NOTE | 2024-05-01 01:04 | ECG_ITS ---
[facility] Pat Name: Partha Roe Department: Room: Gender: Male Mac Developer: : 1960 Requested By: Partha Contreras Order Number: [id number] Sherrell MD: Shaggy Arrieta M.D. Measurements Intervals [place] Rate: 71 P: 45 KS: 121 QRS: 26 QRSD: 97 T: 75 QT: 387 QTc: 422 Interpretive Statements SINUS RHYTHM Compared to ECG 04/11/2024 10:56:44 Sinus arrhythmia no longer present Electronically Signed On 05-03-2024 11:32:39 PANELBEATER by Shaggy Arrieta M.D. [email or web address]
--- NOTE | 2024-05-01 01:04 | XRR_ITS ---
PROCEDURE INFORMATION: Exam: XR Chest Exam date and time: 05/01/2024 2:02 AM Age: 64 years old Clinical indication: Pain; Chest pressure; Additional info: Chest pain TECHNIQUE: Imaging protocol: Radiologic exam of the chest. Views: 1 view. COMPARISON: CT angio chest PE protcl [id number] 04/11/2024 1:19 AM FINDINGS: Lungs: Unremarkable. No consolidation. Pleural spaces: Unremarkable. No pleural effusion. No pneumothorax. Heart/Mediastinum: Unremarkable. No cardiomegaly. Bones/joints: Unremarkable. Soft tissues: Surgical clips in the right axilla XR/XR chest 1V portable [id number] IMPRESSION: No acute findings.
--- NOTE | 2024-05-01 01:09 | W.ED.CHESTPA ---
Documented by User: Partha Contreras DO 05/01/24 05:00 HPI - Chest Pain General: Chief Complaint: Chest Pain Stated Complaint: cp Time Seen by Provider: 05/01/24 01:04 History of Present Illness: Patient arrived via EMS with complaints of substernal chest pain. Said it started earlier today and been constant up until EMS arrived there. Patient says not have any pain now. Patient was diagnosed with a PE and put on Eliquis about 2 weeks ago through this facility. Related Data Home Medications Medication Instructions Recorded Confirmed metoprolol succinate 25 mg 12.5 mg PO BID 04/11/24 04/11/24 tablet,extended release 24 hr simvastatin 40 mg tablet 40 mg PO QPM 04/11/24 04/11/24 sulfamethoxazole 800 See Rx Instructions .Route .COMPLEX 04/11/24 04/11/24 mg-trimethoprim 160 mg tablet (Bactrim DS) Previous Rx's Medication Instructions Recorded prednisone 20 mg tablet 20 mg PO DAILY #30 tabs 02/11/23 furosemide 40 mg tablet 40 mg PO QAM edema/heart #30 tabs 10/25/23 losartan 50 mg tablet 50 mg PO DAILY blood pressure #90 01/31/24 tabs albuterol sulfate 2.5 mg/3 mL 2.5 mg (3 mL) inhalation Q6H PRN 03/09/24 (0.083 %) solution for nebulization shortness of breath or wheezing #90 mL albuterol sulfate 90 mcg/actuation 2 puff inhalation Q6H PRN 04/06/24 aerosol inhaler (Ventolin HFA) breathing #8.5 grams apixaban 5 mg tablet (Eliquis) 5 mg PO BID 90 days #180 tabs 04/12/24 empagliflozin 10 mg tablet 10 mg PO DAILY 30 days #30 tabs 04/12/24 (Jardiance) Allergies Allergy/AdvReac Type Severity Reaction Status Date / Time cat dander Allergy Mild ADR-Swelling Verified 05/01/24 01:10 of the Eye ibuprofen Allergy Unknown Unknown Verified 05/01/24 01:10 menthol Allergy Unknown Verified 05/01/24 01:10 Review of Systems General: Reports: 10 or more systems reviewed and unremarkable except in HPI and below PFSH ED PFSH: Medical History 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 Left ureteral calculus 02/09/2023 [facility] Bilateral lower extremity edema Non-smoker COPD (chronic obstructive pulmonary disease) Pulmonary sarcoidosis Hyperlipidemia ASHD (arteriosclerotic heart disease) 2016 stents x2 HTN (hypertension) Surgical History History of back surgery H/O bilateral cataract extraction S/P PTCA (percutaneous transluminal coronary angioplasty) S/P cholecystectomy S/P skin cancer resection Family History Brother CAD (coronary artery disease) valve replaced Mother Lung disease Denies family history of Diabetes Clotting disorder Dementia Chronic kidney disease (CKD) Suicide Anesthesia complication Bleeding disorder Cancer Stroke Social History Smoking and tobacco/nicotine status: never used tobacco/nicotine Second hand smoke exposure: No Alcohol intake: never Substance/Drug Use: never Physical Exam Const: COMMON NORMALS: no acute distress, average body habitus, patient oriented x3, no limitations, healthy appearing, alert and well nourished HENMT: COMMON NORMALS: normocephalic, atraumatic, hearing grossly normal bilaterally, external ears normal, Normal external nose present and moist oral mucous membranes HEAD & SCALP: normocephalic and atraumatic NOSE: Normal external nose present EXTERNAL EAR: Yes external ears normal Neck/C-Spine: COMMON NORMALS: no JVD Chest: COMMONS NORMALS: normal inspection of the chest and normal palpation of entire chest wall Resp: COMMON NORMALS: normal respiratory effort, No retractions, No use of accessory muscles and clear to auscultation bilaterally AUSCULTATION: clear to auscultation bilaterally Cardio: COMMON NORMALS: no JVD, regular rate, regular rhythm, S1 normal heart sound present, S2 normal heart sound present, No gallops present (Cardio), No clicks present (Cardio), No murmurs present (Cardio) and No rub (Cardio) RATE: regular rate RHYTHM: regular rhythm HEART SOUNDS: S1 normal heart sound present and S2 normal heart sound present GI: COMMON NORMALS: Normal to inspection, nondistended, normoactive bowel sounds present, Soft to palpation, non-tender, No hepatosplenomegaly present and no masses PALPATION: Yes Soft to palpation and Yes No hepatosplenomegaly present Neuro: COMMON NORMALS: patient oriented x3 SENSORIUM/ORIENTATION: Yes alert Course Vital Signs: Vital signs: Vital Signs Temperature 98.3 F 05/01/24 01:03 Pulse Rate 80 05/01/24 04:53 Respiratory Rate 16 05/01/24 04:53 Blood Pressure 141/85 05/01/24 04:53 Pulse Oximetry 95 05/01/24 04:53 Oxygen Delivery Me thod Room Air 05/01/24 04:53 MDM - Chest Pain Medical Decision Making Lab work reviewed as well as chest x-ray, all of which was essentially benign. Delta troponin was 3, initial troponin was 64, 2-hour 67, after having talk with his patient's feels that this is anxiety. This is the second time he is, for chest pain that has been worked up as negative. Patient also says hurts to take a big deep breath. Patient denies Eliquis for his PE. Patient be discharged home. Medical Records I reviewed the patient's medical records. Lab Data I reviewed the patient's lab results. 05/01/24 02:19 05/01/24 02:19 Radiology Impressions Chest X-Ray 05/01/24 01:04 IMPRESSION: No acute findings. Laboratory Results WBC 17.02 10^3/uL (3.29-11.43) H 05/01/24 02:19 RBC 4.24 10^6/uL (3.85-5.65) 05/01/24 02:19 Hgb 12.70 g/dL (11.27-16.99) 05/01/24 02:19 Hct 39.2 % (37-53) 05/01/24 02:19 MCV 92.5 fl (82-101) 05/01/24 02:19 MCH 30.0 pg (27-33) 05/01/24 02:19 MCHC 32.4 g/dL (30-55) 05/01/24 02:19 RDW 14.7 % (12.1-15.1) 05/01/24 02:19 Plt Count 281 10^3/cmm (157-399) 05/01/24 02:19 MPV 10.0 fL (7.4-10.4) 05/01/24 02:19 Neut % (Auto) 83.7 % 05/01/24 02:19 Lymph % (Auto) 7.0 % 05/01/24 02:19 Douglas % (Auto) 7.5 % 05/01/24 02:19 Eos % (Auto) 0.4 % 05/01/24 02:19 Baso % (Auto) 0.2 % 05/01/24 02:19 Neut # (Auto) 14.26 10^3/uL (1.8-7.7) H 05/01/24 02:19 Lymph # (Auto) 1.2 10^3/uL (0.8-4.8) 05/01/24 02:19 Douglas # (Auto) 1.3 10^3/uL (0.2-0.9) H 05/01/24 02:19 Eos # (Auto) 0.1 10^3/uL (0.0-0.8) 05/01/24 02:19 Baso # (Auto) 0.0 10^3/uL (0.0-0.1) 05/01/24 02:19 Nucleated RBC % (auto) 0 % 05/01/24 02:19 Nucleated RBCs # 0.0 /100WBC 05/01/24 02:19 Sodium 135 mmol/L (136-145) L 05/01/24 02:19 Potassium 4.0 mmol/L (3.5-5.1) 05/01/24 02:19 Chloride 95 mmol/L (98-107) L 05/01/24 02:19 Carbon Dioxide 26 mmol/L (22-29) 05/01/24 02:19 Anion Gap 18.0 (5-19) 05/01/24 02:19 BUN 24 mg/dL (8-23) H 05/01/24 02:19 Creatinine 1.0 mg/dL (0.7-1.2) 05/01/24 02:19 GFR Calculation 75.7 mL/min (90-130) L 05/01/24 02:19 Glucose 122 mg/dL (65-115) H 05/01/24 02:19 Calculated Osmolality 285 mOsm/kg (285-295) 05/01/24 02:19 Calcium 9.2 mg/dL (8.5-10.5) 05/01/24 02:19 Magnesium 2.3 mg/dL (1.7-2.3) 05/01/24 02:19 Total Bilirubin 0.3 mg/dL (0.15-1.2) 05/01/24 02:19 AST 13 U/L (0-40) 05/01/24 02:19 ALT 15 U/L (0-41) 05/01/24 02:19 Alkaline Phosphatase 65 U/L (40-130) 05/01/24 02:19 Troponin T Baseline 64 ng/L (0-15) H 05/01/24 02:19 Troponin T 120 Minute 67.73 ng/L (0-15) H 05/01/24 04:20 Delta Troponin T 3.73 ABS# (0-10) 05/01/24 04:20 NT-Pro-B Natriuret Pep 47 pg/mL (0-125) 05/01/24 02:19 Total Protein 6.0 g/dL (6.6-8.7) L 05/01/24 02:19 Albumin 4.1 g/dL (3.5-5.2) 05/01/24 02:19 Globulin 1.9 g/dL (1.3-4.6) 05/01/24 02:19 All radiology interpretation(s) finalized by discharge Discharge Plan Discharge Patient Disposition: Home Clinical Impression: Atypical chest pain, Anxiety Condition: Stable Prescriptions: No Action albuterol sulfate [Ventolin HFA] 90 mcg/actuation HFA aerosol inhaler 2 puff INHALATION Q6H PRN (Reason: breathing) Qty: 8.5 1RF prednisone 20 mg tablet 20 mg PO DAILY Qty: 30 0RF albuterol sulfate 2.5 mg /3 mL (0.083 %) solution for nebulization 2.5 mg inhalation Q6H PRN (Reason: shortness of breath or wheezing) Qty: 90 0RF furosemide 40 mg tablet 40 mg PO QAM Qty: 30 5RF losartan 50 mg tablet 50 mg PO DAILY Qty: 90 1RF sulfamethoxazole-trimethoprim [Bactrim DS] 800-160 mg Tablet See Rx Instructions .ROUTE .COMPLEX Rx Instructions: 1 tab orally every other day simvastatin 40 mg Tablet 40 mg PO QPM metoprolol succinate 25 mg Tablet Extended Release 24 Hr 12.5 mg PO BID Eliquis 5 mg tablet 5 mg PO BID 90 Days Qty: 180 0RF Rx Instructions: take 10mg bid for 7 days, then reduce to 5mg bid Jardiance 10 mg tablet 10 mg PO DAILY 30 Days Qty: 30 0RF Discharge Orders: Discharge ED (Routine); Ordered 05/01/24 Ordered By: Partha Contreras Referrals: Nasir Mazariegos MD [Primary Care Provider] - 1 week Patient Instructions: Chest Pain - Noncardiac, Anxiety (ED) Activity Restrictions/Additional Instructions: Your evaluation in the ER that included chest x-ray, blood work, serial EKGs, did not show any acute cardiac cause of your chest pain. Your chest pain is felt to be noncardiac in nature. Your chest pain may also have an anxiety component with it. Please follow-up with your family practice physician within next 7 days for further evaluation treatment and talk to him about possible anxiety and treatment. Coding Level of Care Code ED Manufacture Specialist for Chg Fwd Documented by User: Schuyler Echevarria DO 05/01/24 06:14 HPI - Chest Pain General: Chief Complaint: Chest Pain Stated Complaint: cp Time Seen by Provider: 05/01/24 01:04 Related Data Home Medications Medication Instructions Recorded Confirmed metoprolol succinate 25 mg 12.5 mg PO BID 04/11/24 04/11/24 tablet,extended release 24 hr simvastatin 40 mg tablet 40 mg PO QPM 04/11/24 04/11/24 sulfamethoxazole 800 See Rx Instructions .Route .COMPLEX 04/11/24 04/11/24 mg-trimethoprim 160 mg tablet (Bactrim DS) Previous Rx's Medication Instructions Recorded prednisone 20 mg tablet 20 mg PO DAILY #30 tabs 02/11/23 furosemide 40 mg tablet 40 mg PO QAM edema/heart #30 tabs 10/25/23 losartan 50 mg tablet 50 mg PO DAILY blood pressure #90 01/31/24 tabs albuterol sulfate 2.5 mg/3 mL 2.5 mg (3 mL) inhalation Q6H PRN 03/09/24 (0.083 %) solution for nebulization shortness of breath or wheezing #90 mL albuterol sulfate 90 mcg/actuation 2 puff inhalation Q6H PRN 04/06/24 aerosol inhaler (Ventolin HFA) breathing #8.5 grams apixaban 5 mg tablet (Eliquis) 5 mg PO BID 90 days #180 tabs 04/12/24 empagliflozin 10 mg tablet 10 mg PO DAILY 30 days #30 tabs 04/12/24 (Jardiance) Allergies Allergy/AdvReac Type Severity Reaction Status Date / Time cat dander Allergy Mild ADR-Swelling Verified 05/01/24 01:10 of the Eye ibuprofen Allergy Unknown Unknown Verified 05/01/24 01:10 menthol Allergy Unknown Verified 05/01/24 01:10 PFSH ED PFSH: Medical History [place]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 Left ureteral calculus 02/09/2023 [facility] Bilateral lower extremity edema Non-smoker COPD (chronic obstructive pulmonary disease) Pulmonary sarcoidosis Hyperlipidemia ASHD (arteriosclerotic heart disease) 2016 stents x2 HTN (hypertension) Surgical History History of back surgery H/O bilateral cataract extraction S/P PTCA (percutaneous transluminal coronary angioplasty) S/P cholecystectomy S/P skin cancer resection Family History Brother CAD (coronary artery disease) valve replaced Mother Lung disease Denies family history of Diabetes Clotting disorder Dementia Chronic kidney disease (CKD) Suicide Anesthesia complication Bleeding disorder Cancer Stroke Social History Smoking and tobacco/nicotine status: never used tobacco/nicotine Second hand smoke exposure: No Alcohol intake: never Substance/Drug Use: never Course Vital Signs: Vital signs: Vital Signs Temperature 98.3 F 05/01/24 01:03 Pulse Rate 80 05/01/24 04:53 Respiratory Rate 16 05/01/24 04:53 Blood Pressure 141/85 05/01/24 04:53 Pulse Oximetry 95 05/01/24 04:53 Oxygen Delivery Me thod Room Air 05/01/24 04:53 MDM - Chest Pain Medical Decision Making Lab work reviewed as well as chest x-ray, all of which was essentially benign. Delta troponin was 3, initial troponin was 64, 2-hour 67, after having talk with his patient's feels that this is anxiety. This is the second time he is, for chest pain that has been worked up as negative. Patient also says hurts to take a big deep breath. Patient denies Eliquis for his PE. Patient be discharged home. Patient was seen and evaluated and discharged by Dr. Contreras. Dr. Contreras had gone in and the patient. He had discharged him right before we achieved shift. [facility] is going to discharge the patient he had a few more questions. He knowledges that Dr. Contreras had been in to see him. He states he did not quite understand what was going on. Reviewed with him that while his troponins are up and is likely due to his recent PE. His EKG did not show any acute changes. Think his symptoms of occasional chest tightness and shortness of breath are related to his PE. They are exacerbated by taking a deep breath. Patient was able to reproduce his symptoms harming by deep inspiration. He does admit he has been taking his Eliquis regularly encouraged him to continue to do so and set the best thing for his PEs. Follow-up with his primary care doctor. Patient encouraged not to stop the Eliquis until specifically advised by his physician. Lab Data 05/01/24 02:19 05/01/24 02:19 Radiology Impressions Chest X-Ray 05/01/24 01:04 IMPRESSION: No acute findings. Laboratory Results WBC 17.02 10^3/uL (3.29-11.43) H 05/01/24 02:19 RBC 4.24 10^6/uL (3.85-5.65) 05/01/24 02:19 Hgb 12.70 g/dL (11.27-16.99) 05/01/24 02:19 Hct 39.2 % (37-53) 05/01/24 02:19 MCV 92.5 fl (82-101) 05/01/24 02:19 MCH 30.0 pg (27-33) 05/01/24 02:19 MCHC 32.4 g/dL (30-55) 05/01/24 02:19 RDW 14.7 % (12.1-15.1) 05/01/24 02:19 Plt Count 281 10^3/cmm (157-399) 05/01/24 02:19 MPV 10.0 fL (7.4-10.4) 05/01/24 02:19 Neut % (Auto) 83.7 % 05/01/24 02:19 Lymph % (Auto) 7.0 % 05/01/24 02:19 Douglas % (Auto) 7.5 % 05/01/24 02:19 Eos % (Auto) 0.4 % 05/01/24 02:19 Baso % (Auto) 0.2 % 05/01/24 02:19 Neut # (Auto) 14.26 10^3/uL (1.8-7.7) H 05/01/24 02:19 Lymph # (Auto) 1.2 10^3/uL (0.8-4.8) 05/01/24 02:19 Douglas # (Auto) 1.3 10^3/uL (0.2-0.9) H 05/01/24 02:19 Eos # (Auto) 0.1 10^3/uL (0.0-0.8) 05/01/24 02:19 Baso # (Auto) 0.0 10^3/uL (0.0-0.1) 05/01/24 02:19 Nucleated RBC % (auto) 0 % 05/01/24 02:19 Nucleated RBCs # 0.0 /100WBC 05/01/24 02:19 Sodium 135 mmol/L (136-145) L 05/01/24 02:19 Potassium 4.0 mmol/L (3.5-5.1) 05/01/24 02:19 Chloride 95 mmol/L (98-107) L 05/01/24 02:19 Carbon Dioxide 26 mmol/L (22-29) 05/01/24 02:19 Anion Gap 18.0 (5-19) 05/01/24 02:19 BUN 24 mg/dL (8-23) H 05/01/24 02:19 Creatinine 1.0 mg/dL (0.7-1.2) 05/01/24 02:19 GFR Calculation 75.7 mL/min (90-130) L 05/01/24 02:19 Glucose 122 mg/dL (65-115) H 05/01/24 02:19 Calculated Osmolality 285 mOsm/kg (285-295) 05/01/24 02:19 Calcium 9.2 mg/dL (8.5-10.5) 05/01/24 02:19 Magnesium 2.3 mg/dL (1.7-2.3) 05/01/24 02:19 Total Bilirubin 0.3 mg/dL (0.15-1.2) 05/01/24 02:19 AST 13 U/L (0-40) 05/01/24 02:19 ALT 15 U/L (0-41) 05/01/24 02:19 Alkaline Phosphatase 65 U/L (40-130) 05/01/24 02:19 Troponin T Baseline 64 ng/L (0-15) H 05/01/24 02:19 Troponin T 120 Minute 67.73 ng/L (0-15) H 05/01/24 04:20 Delta Troponin T 3.73 ABS# (0-10) 05/01/24 04:20 NT-Pro-B Natriuret Pep 47 pg/mL (0-125) 05/01/24 02:19 Total Protein 6.0 g/dL (6.6-8.7) L 05/01/24 02:19 Albumin 4.1 g/dL (3.5-5.2) 05/01/24 02:19 Globulin 1.9 g/dL (1.3-4.6) 05/01/24 02:19 Discharge Plan Discharge Patient Disposition: Home Clinical Impression: Atypical chest pain, Anxiety Condition: Stable Prescriptions: No Action albuterol sulfate [Ventolin HFA] 90 mcg/actuation HFA aerosol inhaler 2 puff INHALATION Q6H PRN (Reason: breathing) Qty: 8.5 1RF prednisone 20 mg tablet 20 mg PO DAILY Qty: 30 0RF albuterol sulfate 2.5 mg /3 mL (0.083 %) solution for nebulization 2.5 mg inhalation Q6H PRN (Reason: shortness of breath or wheezing) Qty: 90 0RF furosemide 40 mg tablet 40 mg PO QAM Qty: 30 5RF losartan 50 mg tablet 50 mg PO DAILY Qty: 90 1RF sulfamethoxazole-trimethoprim [Bactrim DS] 800-160 mg Tablet See Rx Instructions .ROUTE .COMPLEX Rx Instructions: 1 tab orally every other day simvastatin 40 mg Tablet 40 mg PO QPM metoprolol succinate 25 mg Tablet Extended Release 24 Hr 12.5 mg PO BID Eliquis 5 mg tablet 5 mg PO BID 90 Days Qty: 180 0RF Rx Instructions: take 10mg bid for 7 days, then reduce to 5mg bid Jardiance 10 mg tablet 10 mg PO DAILY 30 Days Qty: 30 0RF Discharge Orders: Discharge ED (Routine); Ordered 05/01/24 Ordered By: Partha Contreras Referrals: Nasir Mazariegos MD [Primary Care Provider] - 1 week Patient Instructions: Chest Pain - Noncardiac, Anxiety (ED) Activity Restrictions/Additional Instructions: Your evaluation in the ER that included chest x-ray, blood work, serial EKGs, did not show any acute cardiac cause of your chest pain. Your chest pain is felt to be noncardiac in nature. Your chest pain may also have an anxiety component with it. Please follow-up with your family practice physician within next 7 days for further evaluation treatment and talk to him about possible anxiety and treatment. Coding Level of Care Code ED Manufacture Specialist for Mirna Harman
[2024-05-01 02:25] LABS: Basophils % 0.2 %; Eosinophils # 0.1 10^3/uL (0.0-0.8); Eosinophils % 0.4 %; Hematocrit 39.2 % (37-53); Lymphocytes # 1.2 10^3/uL (0.8-4.8); Mean Corpuscular HGB Conc 32.4 g/dL (30-55); Mean Corpuscular Volume 92.5 fl (82-101); Monocytes # 1.3 10^3/uL (0.2-0.9); Monocytes % 7.5 %; Neutrophils # 14.26 10^3/uL (1.8-7.7); Neutrophils % 83.7 %; Nucleated Red Blood Cells % 0 %; Platelet Count 281 10^3/cmm (157-399); Red Blood Count 4.24 10^6/uL (3.85-5.65); Red Cell Distribution Width 14.7 % (12.1-15.1); White Blood Count 17.02 10^3/uL (3.29-11.43)
[2024-05-01 02:45] LABS: Troponin(5th) Baseline 64 ng/L (0-15)
[2024-05-01 03:02] LABS: Alanine Aminotransferase 15 U/L (0-41); Albumin Level 4.1 g/dL (3.5-5.2); Alkaline Phosphatase 65 U/L (40-130); Aspartate Amino Transferase 13 U/L (0-40); Blood Urea Nitrogen 24 mg/dL (8-23); Calcium 9.2 mg/dL (8.5-10.5); Carbon Dioxide 26 mmol/L (22-29); Chloride 95 mmol/L (98-107); Globulin 1.9 g/dL (1.3-4.6); Glomerular Filtration Rate 75.7 mL/min (90-130); Glucose 122 mg/dL (65-115); Magnesium 2.3 mg/dL (1.7-2.3); NT Pro B Type Natriuretic Pept 47 pg/mL (0-125); Osmolality Calculated 285 mOsm/kg (285-295); Sodium 135 mmol/L (136-145); Total Bilirubin 0.3 mg/dL (0.15-1.2)
--- NOTE | 2024-05-01 04:25 | ECG_ITS ---
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
[2024-05-01 04:48] LABS: Troponin 5 2HR 67.73 ng/L (0-15); Troponin 5 2HR Delta 3.73 ABS# (0-10)
== END 2024-05-01 06:40 | disposition home or self-care (01) ==
PROVIDERS: Emergency Provider Emergency Medicine; PCP Family Medicine Adult Medicine
DX: R07.89 Other chest pain (principal); F41.9 Anxiety disorder, unspecified; Z79.01 Long term (current) use of anticoagulants; J44.9 Chronic obstructive pulmonary disease, unspecified; E78.5 Hyperlipidemia, unspecified; I10 Essential (primary) hypertension
CPT/HCPCS: 71045; 80053; 83735; 83880; 84484; 85025; 93005; 99285

== ENCOUNTER 2024-05-14 22:41 | Emergency (ER) | payer MEDICARE, SELFPAY ==
[2024-05-14 22:44] VITALS: BP 129/77; PULSE 74; RESP 18; TEMP 36.7; O2SAT 98; BMI 25.4
--- NOTE | 2024-05-14 22:47 | ECG_ITS ---
[facility] Date: 2024-05-14 Pat Name: Partha Roe Department: Room: Gender: Male Dental Ceramist Assistant: : 1960 Requested By: Kinga Rodas Order Number: [id number] Sherrell MD: Tunde Browne M.D. Measurements Intervals [place] Rate: 78 P: 11 ME: 104 QRS: 21 QRSD: 88 T: -11 QT: 340 QTc: 389 Interpretive Statements SINUS RHYTHM WITH SHORT ME INTERVAL NONSPECIFIC T-WAVE ABNORMALITY Compared to ECG 05/01/2024 04:25:13 No significant changes Electronically Signed On 05-16-2024 17:45:03 LAUNDRY TECHNICIAN by Tunde Browne M.D. [email or web address]
--- NOTE | 2024-05-14 22:49 | XRR_ITS ---
PROCEDURE INFORMATION: Exam: XR Chest Exam date and time: 05/14/2024 11:32 PM Age: 64 years old Clinical indication: Pain; Shortness of breath; Chest pressure; Additional info: Chest pain TECHNIQUE: Imaging protocol: Radiologic exam of the chest. Views: 1 view. COMPARISON: CR (CHEST, ) 05/01/2024 2:02 AM FINDINGS: Lungs: Unremarkable. No consolidation. Pleural spaces: Unremarkable. No pleural effusion. No pneumothorax. Heart/Mediastinum: Unremarkable. No cardiomegaly. Bones/joints: Changes from kyphoplasty involves the lower thoracic spine. XR/XR chest 1V portable 62019 IMPRESSION: No acute findings.
[2024-05-14 22:52] VITALS: BP 124/72; PULSE 75; RESP 19; O2SAT 96
--- NOTE | 2024-05-14 22:57 | W.ED.CHESTPA ---
HPI - Chest Pain General: Chief Complaint: Chest Pain Stated Complaint: Tightness in Chest Time Seen by Provider: 05/14/24 22:52 History of Present Illness: 64-year-old male with history of pulmonary embolism diagnosed about a month ago who is now on Eliquis, coronary artery disease status post 2 stents, type 2 diabetes mellitus, COPD, and hypertension who presents emergency room with chest tightness. This started about 3 to 4 hours ago while sitting in recliner at home. Says he was also diagnosed with a rib fracture recently. No fevers. No cough. No lower extremity swelling. No abdominal pain. No nausea or vomiting. He says he does not have any chest pain, chest tightness. Related Data Home Medications ?Medication ?Instructions ?Recorded ?Confirmed sulfamethoxazole 800 See Rx Instructions .Route .COMPLEX 04/11/24 05/10/24 mg-trimethoprim 160 mg tablet (Bactrim DS) Previous Rx's ?Medication ?Instructions ?Recorded prednisone 20 mg tablet 20 mg PO DAILY #30 tabs 02/11/23 losartan 50 mg tablet 50 mg PO DAILY blood pressure #90 01/31/24 tabs albuterol sulfate 2.5 mg/3 mL 2.5 mg (3 mL) inhalation Q6H PRN 03/09/24 (0.083 %) solution for nebulization shortness of breath or wheezing #90 mL albuterol sulfate 90 mcg/actuation 2 puff inhalation Q6H PRN 04/06/24 aerosol inhaler (Ventolin HFA) breathing #8.5 grams apixaban 5 mg tablet (Eliquis) 5 mg PO BID #60 tabs 05/08/24 furosemide 40 mg tablet 40 mg PO QAM edema/heart #30 tabs 05/08/24 metoprolol succinate 25 mg 12.5 mg (1/2 x 25 mg) PO BID #60 05/08/24 tablet,extended release 24 hr tabs simvastatin 40 mg tablet 40 mg PO QPM #30 tabs 05/08/24 empagliflozin 10 mg tablet 10 mg PO DAILY #30 tabs 05/09/24 (Jardiance) nitroglycerin 0.4 mg sublingual 0.4 mg sublingual Q5M PRN chest 05/09/24 tablet pain #30 tabs buspirone 7.5 mg tablet 7.5 mg PO TID #60 tabs 05/14/24 Allergies Allergy/AdvReac Type Severity Reaction Status Date / Time cat dander Allergy Mild ADR-Swelling Verified 05/14/24 22:52 of the Eye ibuprofen Allergy Unknown Unknown Verified 05/14/24 22:52 menthol Allergy Unknown Verified 05/14/24 22:52 ketorolac (From Toradol) AdvReac renal Verified 05/14/24 23:21 failure Review of Systems Narrative: Constitutional symptoms: Negative except as documented in HPI. Skin symptoms: Negative except as documented in HPI. Eye symptoms: Negative except as documented in HPI. ENMT symptoms: Negative except as documented in HPI. Respiratory symptoms: Negative except as documented in HPI. Cardiovascular symptoms: Negative except as documented in HPI. Gastrointestinal symptoms: Negative except as documented in HPI. Genitourinary symptoms: Negative except as documented in HPI. Musculoskeletal symptoms: Negative except as documented in HPI. Neurologic symptoms: Negative except as documented in HPI. Psychiatric symptoms: Negative except as documented in HPI. Endocrine symptoms: Negative except as documented in HPI. 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 Left ureteral calculus 02/09/2023 [facility] Bilateral lower extremity edema Non-smoker COPD (chronic obstructive pulmonary disease) Pulmonary sarcoidosis Hyperlipidemia ASHD (arteriosclerotic heart disease) 2016 stents x2 HTN (hypertension) Surgical History History of back surgery H/O bilateral cataract extraction S/P PTCA (percutaneous transluminal coronary angioplasty) S/P cholecystectomy S/P skin cancer resection Family History Brother CAD (coronary artery disease) valve replaced Mother Lung disease Denies family history of Diabetes Clotting disorder Dementia Chronic kidney disease (CKD) Suicide Anesthesia complication Bleeding disorder Cancer Stroke Social History Smoking and tobacco/nicotine status: never used tobacco/nicotine Second hand smoke exposure: No Alcohol intake: never Substance/Drug Use: never Physical Exam Narrative: EXAM NARRATIVE: General: Alert, no acute distress. Skin: Warm, dry. Head: Normocephalic, atraumatic. Neck: Supple, trachea midline. Eye: Extraocular movements are intact. Ears, nose, mouth and throat: mucosa moist. Cardiovascular: Regular, Normal peripheral perfusion. Respiratory: Lungs are clear to auscultation, respirations are non-labored, breath sounds are equal, Symmetrical chest wall expansion. Gastrointestinal: Soft, Nontender, Non distended Musculoskeletal: Normal ROM, no deformity. Neurological: Alert and oriented, No focal neurological deficit observed. Psychiatric: Cooperative, appropriate mood & affect. Course Vital Signs: Vital signs: Vital Signs Temperature 98.1 F 05/14/24 22:44 Pulse Rate 69 05/15/24 01:30 Respiratory Rate 21 H 05/15/24 01:30 Blood Pressure 120/76 05/14/24 23:37 Pulse Oximetry 98 05/15/24 01:30 Oxygen Delivery Me thod Room Air 05/14/24 22:44 MDM - Chest Pain Medical Decision Making Differential diagnosis for patient with chest pain includes but is not limited to and based on the above HPI, review of systems and physical exam: Pneumonia. unstable angina. angina. Acute coronary syndrome / LA. Pulmonary embolism. Costochondritis / musculoskeletal. Pleurisy. Pericarditis. Esophageal spasm. Pancreatis. Cholecystitis. Orders placed to evaluate differential diagnosis based on the above differential, HPI and physical exam EKG: Time 2247. Rate 78. Normal sinus rhythm, nonspecific ST-T changes, no ectopy, normal PA & QRS intervals, This was reviewed and interpreted by myself the ER physician at 2250 Repeat EKG: Time 1:13 AM. Rate 65. Normal sinus rhythm, nonspecific ST-T changes, no ectopy, normal PA & QRS intervals, This was reviewed and interpreted by myself the ER physician at 1:17 a.m. No significant changes from EKG done previously today in the emergency room. Chest x-ray: No acute process. No infiltrate. No pneumothorax. This was reviewed and interpreted by myself the emergency room physician. I also reviewed the radiology report. Lab Review: Laboratory results were reviewed and interpreted by myself the emergency room physician. Stable leukocytosis. Patient has consistently have a white count around 18,000 in the past. No anemia. No renal failure. proBNP is negative. Serial cardiac markers are unchanged and at his baseline. I reviewed the patient's medical record. Reexamination: Patient remained stable. No increased work of breathing. No altered mental status. No focal motor deficits. Assessment and plan: Chest tightness - Discharged home - Discussed plan with patient. Answered any questions. - Evaluation and treatment of this problem were appropriate in the emergency setting. Lab Data 05/14/24 23:21 05/14/24 23:21 Radiology Impressions Chest X-Ray 05/14/24 22:49 IMPRESSION: No acute findings. Laboratory Results WBC 18.91 10^3/uL (3.29-11.43) H 05/14/24 23:21 RBC 4.45 10^6/uL (3.85-5.65) 05/14/24 23:21 Hgb 13.30 g/dL (11.27-16.99) 05/14/24 23: Hct 42.5 % (37-53) 05/14/24 23: MCV 95.5 fl (82-101) 05/14/24 23:21 MCH 29.9 pg (27-33) 05/14/24 23: MCHC 31.3 g/dL (30-55) 05/14/24 23: RDW 15.0 % (12.1-15.1) 05/14/24 23: Plt Count 281 10^3/cmm (157-399) 05/14/24 23:21 MPV 10.5 fL (7.4-10.4) H 05/14/24 23:21 Neut % (Auto) 88.2 % 05/14/24 23:21 Lymph % (Auto) 3.8 % 05/14/24 23:21 Nelson % (Auto) 5.9 % 05/14/24 23:21 Eos % (Auto) 0.2 % 05/14/24 23:21 Baso % (Auto) 0.1 % 05/14/24 23:21 Neut # (Auto) 16.70 10^3/uL (1.8-7.7) H 05/14/24 23:21 Lymph # (Auto) 0.7 10^3/uL (0.8-4.8) L 05/14/24 23:21 Nelson # (Auto) 1.1 10^3/uL (0.2-0.9) H 05/14/24 23:21 Eos # (Auto) 0.0 10^3/uL (0.0-0.8) 05/14/24 23:21 Baso # (Auto) 0.0 10^3/uL (0.0-0.1) 05/14/24 23:21 Nucleated RBC % (auto) 0 % 05/14/24 23:21 Nucleated RBCs # 0.0 /100WBC 05/14/24 23:21 Sodium 142 mmol/L (136-145) 05/14/24 23:21 Potassium 4.7 mmol/L (3.5-5.1) 05/14/24 23:21 Chloride 101 mmol/L (98-107) 05/14/24 23:21 Carbon Dioxide 25 mmol/L (22-29) 05/14/24 23:21 Anion Gap 20.7 (5-19) H 05/14/24 23:21 BUN 22 mg/dL (8-23) 05/14/24 23:21 Creatinine 1.0 mg/dL (0.7-1.2) 05/14/24 23:21 GFR Calculation 75.7 mL/min (90-130) L 05/14/24 23:21 Glucose 144 mg/dL (65-115) H 05/14/24 23:21 Calculated Osmolality 300 mOsm/kg (285-295) H 05/14/24 23:21 Lactic Acid 2.6 mmol/L (0.5-2.2) H 05/14/24 23:21 Calcium 9.8 mg/dL (8.5-10.5) 05/14/24 23:21 Total Bilirubin 0.3 mg/dL (0.15-1.2) 05/14/24 23:21 AST 12 U/L (0-40) 05/14/24 23:21 ALT 20 U/L (0-41) 05/14/24 23:21 Alkaline Phosphatase 79 U/L (40-130) 05/14/24 23:21 Troponin T Baseline 46 ng/L (0-15) H 05/14/24 23:21 Troponin T 120 Minute 41.76 ng/L (0-15) H 05/15/24 01:07 Delta Troponin T -4.24 ABS# (0-10) L 05/15/24 01:07 NT-Pro-B Natriuret Pep 46 pg/mL (0-125) 05/14/24 23:21 Total Protein 6.5 g/dL (6.6-8.7) L 05/14/24 23:21 Albumin 4.4 g/dL (3.5-5.2) 05/14/24 23:21 Globulin 2.1 g/dL (1.3-4.6) 05/14/24 23:21 Coronavirus (PCR) Negative (Negative) 05/14/24 23:40 Influenza A (PCR) Negative (Negative) 05/14/24 23:40 Influenza Type B (PCR) Negative (Negative) 05/14/24 23:40 RSV (PCR) Negative (Negative) 05/14/24 23:40 All radiology interpretation(s) finalized by discharge Discharge Plan Discharge Patient Disposition: Home Clinical Impression: Non-cardiac chest pain Condition: Stable Prescriptions: No Action albuterol sulfate [Ventolin HFA] 90 mcg/actuation HFA aerosol inhaler 2 puff INHALATION Q6H PRN (Reason: breathing) Qty: 8.5 1RF Eliquis 5 mg tablet 5 mg PO BID Qty: 60 2RF furosemide 40 mg tablet 40 mg PO QAM Qty: 30 5RF metoprolol succinate 25 mg tablet extended release 24 hr 12.5 mg PO BID Qty: 60 2RF simvastatin 40 mg tablet 40 mg PO QPM Qty: 30 2RF nitroglycerin 0.4 mg tablet, sublingual 0.4 mg sublingual Q5M PRN (Reason: chest pain) Qty: 30 2RF Rx Instructions: do not exceed 3 doses per episode Jardiance 10 mg tablet 10 mg PO DAILY Qty: 30 2RF prednisone 20 mg tablet 20 mg PO DAILY Qty: 30 0RF albuterol sulfate 2.5 mg /3 mL (0.083 %) solution for nebulization 2.5 mg inhalation Q6H PRN (Reason: shortness of breath or wheezing) Qty: 90 0RF losartan 50 mg tablet 50 mg PO DAILY Qty: 90 1RF buspirone 7.5 mg tablet 7.5 mg PO TID Qty: 60 2RF sulfamethoxazole-trimethoprim [Bactrim DS] 800-160 mg Tablet See Rx Instructions .ROUTE .COMPLEX Rx Instructions: 1 tab orally every other day Discharge Orders: Discharge ED (Routine); Ordered 05/15/24 Ordered By: Kinga L Mcrae Referrals: Natalia Alvarado NP [Primary Care Provider] - Discharge Diet: Usual diet Discharge Activity: Increase activity as tolerated Patient Instructions: Noncardiac Chest Pain (ED), Opioid Safety, Pain Management Activity Restrictions/Additional Instructions: Thank you for choosing [facility] for your healthcare needs today. Please realize this is an emergency room and that we are providing you with a medical screening exam and this may not be complete and all inclusive of all the testing and or work up that you may need to determine your ailment or severity of your illness. You have been screened and evaluated and felt safe for discharge. Health conditions do change or evolve sometimes and as such it is important that you follow up with your Primary Doctor to be re checked, 3-5 days is a general good time frame for follow up. You are always welcome to return to the ED for re assessment if your symptoms are worsening or you have new concerns Print Language: Korean Coding Level of Care Code ED Paint Grinder for Mirna Harman
[2024-05-14 23:22] VITALS: PULSE 73; O2SAT 95
[2024-05-14 23:37] VITALS: BP 120/76; PULSE 69; RESP 16; O2SAT 94
[2024-05-14 23:39] LABS: Basophils % 0.1 %; Eosinophils % 0.2 %; Hematocrit 42.5 % (37-53); Lymphocytes # 0.7 10^3/uL (0.8-4.8); Lymphocytes % 3.8 %; Mean Corpuscular HGB Conc 31.3 g/dL (30-55); Mean Corpuscular Hemoglobin 29.9 pg (27-33); Mean Corpuscular Volume 95.5 fl (82-101); Mean Platelet Volume 10.5 fL (7.4-10.4); Monocytes # 1.1 10^3/uL (0.2-0.9); Monocytes % 5.9 %; Neutrophils % 88.2 %; Nucleated Red Blood Cells % 0 %; Platelet Count 281 10^3/cmm (157-399); Red Blood Count 4.45 10^6/uL (3.85-5.65); White Blood Count 18.91 10^3/uL (3.29-11.43)
[2024-05-14 23:48] LABS: Lactic Sepsis W/Reflex 2.6 mmol/L (0.5-2.2)
[2024-05-14 23:49] LABS: Troponin(5th) Baseline 46 ng/L (0-15)
[2024-05-14 23:58] LABS: Alanine Aminotransferase 20 U/L (0-41); Albumin Level 4.4 g/dL (3.5-5.2); Alkaline Phosphatase 79 U/L (40-130); Anion Gap 20.7 (5-19); Aspartate Amino Transferase 12 U/L (0-40); Blood Urea Nitrogen 22 mg/dL (8-23); Calcium 9.8 mg/dL (8.5-10.5); Carbon Dioxide 25 mmol/L (22-29); Chloride 101 mmol/L (98-107); Creatinine Clr Calc Pharmacy 72.5261; Globulin 2.1 g/dL (1.3-4.6); Glomerular Filtration Rate 75.7 mL/min (90-130); Glucose 144 mg/dL (65-115); NT Pro B Type Natriuretic Pept 46 pg/mL (0-125); Osmolality Calculated 300 mOsm/kg (285-295); Potassium 4.7 mmol/L (3.5-5.1); Sodium 142 mmol/L (136-145); Total Bilirubin 0.3 mg/dL (0.15-1.2); Total Protein 6.5 g/dL (6.6-8.7)
[2024-05-15] VITALS: PULSE 64; RESP 15; O2SAT 96
[2024-05-15 00:24] LABS: Covid PCR NEGATIVE (Negative); Influenza A NEGATIVE (Negative); Influenza B NEGATIVE (Negative); Respiratory Syncytial Virus Ce NEGATIVE (Negative)
[2024-05-15 00:30] VITALS: PULSE 64; RESP 19; O2SAT 96
--- NOTE | 2024-05-15 00:49 | ECG_ITS ---
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 Measurements Intervals [place] Rate: 65 P: 41 ME: 107 QRS: 39 QRSD: 90 T: 75 QT: 375 QTc: 391 Interpretive Statements SINUS RHYTHM WITH SHORT ME INTERVAL EARLY REPOLARIZATION [ST ELEVATION WITH NORMALLY INFLECTED T-WAVE] Compared to ECG 05/14/2024 22:47:18 Early repolarization now present T-wave abnormality no longer present Electronically Signed On 05-16-2024 18:17:37 SHIP'S MASTER by Tunde Browne M.D. [id number]
[2024-05-15 01:00] VITALS: PULSE 66
[2024-05-15 01:13] LABS: Reflex Lactate Order REFLEX LACTIC ORDERD
[2024-05-15 01:30] VITALS: PULSE 69; RESP 21; O2SAT 98
[2024-05-15 01:32] LABS: Troponin 5 2HR 41.76 ng/L (0-15)
[2024-05-15 01:49] LABS: Troponin 5 2HR Delta -4.24 ABS# (0-10)
[2024-05-15 02:13] VITALS: BP 138/89; PULSE 69; O2SAT 98
== END 2024-05-15 02:14 | disposition home or self-care (01) ==
PROVIDERS: Emergency Provider Emergency Medicine
DX: R07.89 Other chest pain (principal); Z79.01 Long term (current) use of anticoagulants; Z11.52 Encounter for screening for COVID-19; E11.9 Type 2 diabetes mellitus without complications; J44.9 Chronic obstructive pulmonary disease, unspecified; E78.5 Hyperlipidemia, unspecified; I10 Essential (primary) hypertension
CPT/HCPCS: 36415; 71045; 80053; 83605; 83880; 84484; 85025; 87637; 93005; 99285

== ENCOUNTER 2024-06-14 10:45 | Emergency (ER) | payer MEDICARE, SELFPAY ==
--- NOTE | 2024-06-14 10:49 | ECG_ITS ---
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 Measurements Intervals [place] Rate: 93 P: 46 AL: 103 QRS: 54 QRSD: 82 T: 79 QT: 328 QTc: 410 Interpretive Statements SINUS RHYTHM WITH SHORT AL INTERVAL Compared to ECG 05/15/2024 01:13:52 Early repolarization no longer present Electronically Signed On 06-15-2024 19:07:03 CDT by Shaggy Arrieta M.D. [email or web address] [id number]
[2024-06-14 10:51] VITALS: BP 124/81; PULSE 91; RESP 20; TEMP 37.1; O2SAT 96; BMI 25.8
--- NOTE | 2024-06-14 11:43 | XRR_ITS ---
PROCEDURE INFORMATION: Exam: XR Chest Exam date and time: 06/14/2024 12:20 PM Age: 64 years old Clinical indication: Pain; Shortness of breath; Chest pressure; Additional info: Chest pain shortness of breath TECHNIQUE: Imaging protocol: Radiologic exam of the chest. Views: 1 view. COMPARISON: CR (CHEST, ) 05/14/2024 11:32 PM FINDINGS: Lungs: Unremarkable. No consolidation or mass. Pleural spaces: Multifocal pleural thickening can be seen bilaterally. No pleural effusion noted. Heart/Mediastinum: Unremarkable. No cardiomegaly. Bones/joints: Unremarkable. XR/XR chest 1V portable [id number] IMPRESSION: Stable chronic pleural thickening
[2024-06-14 13:14] LABS: Basophils # 0.1 10^3/uL (0.0-0.1); Basophils % 0.3 %; Eosinophils # 0.1 10^3/uL (0.0-0.8); Eosinophils % 0.3 %; Hematocrit 48.2 % (37-53); Lymphocytes # 0.9 10^3/uL (0.8-4.8); Lymphocytes % 4.9 %; Mean Corpuscular HGB Conc 30.9 g/dL (30-55); Mean Corpuscular Hemoglobin 29.8 pg (27-33); Mean Corpuscular Volume 96.4 fl (82-101); Mean Platelet Volume 9.2 fL (7.4-10.4); Monocytes # 1.1 10^3/uL (0.2-0.9); Neutrophils # 15.57 10^3/uL (1.8-7.7); Neutrophils % 86.5 %; Nucleated Red Blood Cells % 0 %; Platelet Count 248 10^3/cmm (157-399); White Blood Count 18.02 10^3/uL (3.29-11.43)
[2024-06-14 13:32] LABS: Alanine Aminotransferase 22 U/L (0-41); Albumin Level 4.6 g/dL (3.5-5.2); Alkaline Phosphatase 91 U/L (40-130); Anion Gap 17.5 (5-19); Aspartate Amino Transferase 15 U/L (0-40); Blood Urea Nitrogen 23 mg/dL (8-23); Calcium 9.4 mg/dL (8.5-10.5); Carbon Dioxide 27 mmol/L (22-29); Chloride 97 mmol/L (98-107); Creatinine Clr Calc Pharmacy 72.9192; Globulin 2.6 g/dL (1.3-4.6); Glomerular Filtration Rate 75.7 mL/min (90-130); Glucose 112 mg/dL (65-115); Osmolality Calculated 288 mOsm/kg (285-295); Potassium 4.5 mmol/L (3.5-5.1); Sodium 137 mmol/L (136-145); Total Bilirubin 0.4 mg/dL (0.15-1.2); Total Protein 7.2 g/dL (6.6-8.7)
[2024-06-14 13:38] LABS: Troponin(5th) Baseline 75 ng/L (0-15)
--- NOTE | 2024-06-14 13:43 | ECG_ITS ---
[facility] Date: 2024-06-14 Pat Name: Partha Roe Department: Room: Gender: Male Silk Folder: : 1960 Requested By: Partha Contreras Order Number: [id number] Sherrell MD: Shaggy Arrieta M.D. Measurements Intervals [place] Rate: 77 P: 31 [place]: 110 QRS: 38 QRSD: 84 T: 7 QT: 364 QTc: 414 Interpretive Statements SINUS RHYTHM WITH SHORT [place] INTERVAL LOW QRS VOLTAGE IN PRECORDIAL LEADS [QRS DEFLECTION < 1.0 mV IN CHEST LEADS] Compared to ECG 06/14/2024 10:49:36 Low QRS voltage now present Electronically Signed On 06-15-2024 19:22:59 CDT by Shaggy Arrieta M.D. [email or web address] [id number]
--- NOTE | 2024-06-14 14:48 | ED_ITS ---
HPI - SOB/Dyspnea 2 General: Chief Complaint: Shortness of Breath/Dyspnea Stated Complaint: Shortness of breath, Chest tightness Time Seen by Provider: 06/14/24 14:10 History of Present Illness: HPI Narrative: 64-year-old male presents emergency room complaining of shortness of breath and chest tightness. He has a history of severe COPD also has a history of coronary artery disease. He is on apixaban he is not on Brilinta states he has not been taking his blood thinner however. He did take a nebulizer this morning which did seem to help he has been on prednisone and antibiotics recently as well. He does not currently have any active chest pain. Associated symptoms: Deny abdominal pain, chest pain or fever(s) Related Data Home Medications ?Medication ?Instructions ?Recorded ?Confirmed sulfamethoxazole 800 1 tab PO .EVERY OTHER DAY 06/14/24 mg-trimethoprim 160 mg tablet (Bactrim DS) Previous Rx's ?Medication ?Instructions ?Recorded prednisone 20 mg tablet 20 mg PO DAILY #30 tabs 02/02 losartan 50 mg tablet 50 mg PO DAILY blood pressur e #90 01/31/24 tabs albuterol sulfate 2.5 mg/3 mL 2.5 mg (3 mL) inhalation Q6H PRN 03/09/24 (0.083 %) solution for nebulization shortness of breat h or wheezing #90 mL albuterol sulfate 90 mcg/actuation 2 puff inhalation Q 6H PRN 04/06/24 aerosol inhaler (Ventolin HFA) breathing #8.5 grams apixaban 5 mg tablet (Eliquis) 5 mg PO BID #60 tabs furosemide 40 mg tablet 40 mg PO QAM edema/heart #30 tabs 05/08/24 metoprolol succinate 25 mg 12.5 mg (1/2 x 25 mg) PO BI D #60 05/08/24 tablet,extended release 24 hr tabs simvastatin 40 mg tablet 40 mg PO QPM #30 tabs empagliflozin 10 mg tablet 10 mg PO DAILY #30 tabs 08/26 (Jardiance) buspirone 7.5 mg tablet 7.5 mg PO TID #60 tabs 05/14 nitroglycerin 0.4 mg sublingual 0.4 mg sublingual Q5M PRN chest 05/16/24 tablet pain #30 tabs doxycycline hyclate 100 mg capsule 100 mg PO BID 10 da ys #20 caps 06/14/24 prednisone 20 mg tablet 20 mg PO TID #15 tabs Allergies Allergy/AdvReac Type Severity Reaction Status Date / Time cat dander Allergy Mild ADR-Swelling Verified 06/07/24 15:08 of the Eye ibuprofen Allergy Unknown Unknown Verified 06/07/24 15:08 menthol Allergy Unknown Verified 06/07/24 15:08 ketorolac (From Toradol) AdvReac renal Verified 06/07/24 15:08 failure Review of Systems 2 Const: Denies: fever(s) or chills Card: Denies: chest pain Resp: Denies: dyspnea GI: Denies: abdominal pain : Denies: dysuria, urinary frequency or urinary urgency Musc: Denies: neck pain or back pain Skin/Breast: Denies: rash PFSH ED 2 PFSH: Medical History Depression Pulmonary embolism Type 2 diabetes mellitus 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 Left ureteral calculus 02/09/2023 [facility] Bilateral lower extremity edema Non-smoker COPD (chronic obstructive pulmonary disease) Pulmonary sarcoidosis Hyperlipidemia ASHD (arteriosclerotic heart disease) 2016 stents x2 HTN (hypertension) Surgical History History of back surgery H/O bilateral cataract extraction S/P PTCA (percutaneous transluminal coronary angioplasty) S/P cholecystectomy S/P skin cancer resection Family History Brother CAD (coronary artery disease) valve replaced Mother Lung disease Denies family history of Diabetes Clotting disorder Dementia Chronic kidney disease (CKD) Suicide Anesthesia complication Bleeding disorder Cancer Stroke Social History Smoking and tobacco/nicotine status: never used tobacco/nicotine Second hand smoke exposure: No Alcohol intake: never Substance/Drug Use: never Physical Exam 2 Const: GENERAL APPEARANCE: cooperative ORIENTATION/CONSCIOUSNESS: Yes awake, Yes oriented to person, Yes oriented to place and Yes oriented to time HENMT: COMMON NORMALS: normocephalic, atraumatic and hearing grossly normal bilaterally HEAD & SCALP: normocephalic and atraumatic Resp: COMMON NORMALS: normal respiratory effort, No retractions, No use of accessory muscles and clear to auscultation bilaterally AUSCULTATION: clear to auscultation bilaterally Cardio: COMMON NORMALS: regular rate, regular rhythm and No murmurs present (Cardio) RATE: regular rate RHYTHM: regular rhythm GI: COMMON NORMALS: Soft to palpation and No hepatosplenomegaly present A USCULTATION: Yes normoactive bowel sounds PALPATION: Yes Soft to palpation, No Tenderness to palpation present (GI), No Guarding due to palpation present (GI) and Yes No hepatosplenomegaly present Extremity: COMMON NORMALS: normal to inspection, capillary refill normal, no clubbing, cyanosis or edema, no calf tenderness and no pedal edema Neuro: SENSORIUM/ORIENTATION: Yes oriented to person, Yes oriented to place and Yes oriented to time Skin: COMMON NORMALS: no rashes or lesions noted GENERAL SKIN EXAM: no rashes or lesions noted Course 2 Vital Signs: Vital signs: Vital Signs Temperature 98.8 F 06/14/24 10:51 Pulse Rate 83 06/14/24 16:39 Respiratory Rate 16 06/14/24 15:22 Blood Pressure 130/90 06/14/24 16:39 Pulse Oximetry 99 06/14/24 16:39 Oxygen Delivery Me thod Room Air 06/14/24 16:39 MDM - SOB/Dyspnea Medical Decision Making Cardiac enzymes trending negative EKG did not show any acute changes. Reviewed as found on the chart. Did have improvement with the nebulizer. Will increase his steroids and taper back down to 20 again. He did get relief with nebulizers. Prior to discharge a COVID RSV flu swab was done we will call him with the results Medical Records I reviewed the patient's medical records. Lab Data I reviewed the patient's lab results. 06/14/24 13:12 06/14/24 13:12 Labs/Radiology: Radiology Impressions Chest X-Ray 06/14/24 11:43 IMPRESSION: Stable chronic pleural thickening Laboratory Results WBC 18.02 10^3/uL (3.29-11.43) H 06/14/24 13:12 RBC 5.00 10^6/uL (3.85-5.65) 06/14/24 13:12 Hgb 14.90 g/dL (11.27-16.99) 06/14/24 13:12 Hct 48.2 % (37-53) 06/14/24 13:12 MCV 96.4 fl (82-101) 06/14/24 13:12 MCH 29.8 pg (27-33) 06/14/24 13:12 MCHC 30.9 g/dL (30-55) 06/14/24 13:12 RDW 16.0 % (12.1-15.1) H 06/14/24 13:12 Plt Count 248 10^3/cmm (157-399) 06/14/24 13:12 MPV 9.2 fL (7.4-10.4) 06/14/24 13:12 Neut % (Auto) 86.5 % 06/14/24 13:12 Lymph % (Auto) 4.9 % 06/14/24 13:12 Fisher % (Auto) 6.0 % 06/14/24 13:12 Eos % (Auto) 0.3 % 06/14/24 13:12 Baso % (Auto) 0.3 % 06/14/24 13:12 Neut # (Auto) 15.57 10^3/uL (1.8-7.7) H 06/14/24 13:12 Lymph # (Auto) 0.9 10^3/uL (0.8-4.8) 06/14/24 13:12 Fisher # (Auto) 1.1 10^3/uL (0.2-0.9) H 06/14/24 13:12 Eos # (Auto) 0.1 10^3/uL (0.0-0.8) 06/14/24 13:12 Baso # (Auto) 0.1 10^3/uL (0.0-0.1) 06/14/24 13:12 Nucleated RBC % (auto) 0 % 06/14/24 13:12 Nucleated RBCs # 0.0 /100WBC 06/14/24 13:12 Sodium 137 mmol/L (136-145) 06/14/24 13:12 Potassium 4.5 mmol/L (3.5-5.1) 06/14/24 13:12 Chloride 97 mmol/L (98-107) L 06/14/24 13:12 Carbon Dioxide 27 mmol/L (22-29) 06/14/24 13:12 Anion Gap 17.5 (5-19) 06/14/24 13:12 BUN 23 mg/dL (8-23) 06/14/24 13:12 Creatinine 1.0 mg/dL (0.7-1.2) 06/14/24 13:12 GFR Calculation 75.7 mL/min (90-130) L 06/14/24 13:12 Glucose 112 mg/dL (65-115) 06/14/24 13:12 Calculated Osmolality 288 mOsm/kg (285-295) 06/14/24 13:12 Calcium 9.4 mg/dL (8.5-10.5) 06/14/24 13:12 Total Bilirubin 0.4 mg/dL (0.15-1.2) 06/14/24 13:12 AST 15 U/L (0-40) 06/14/24 13:12 ALT 22 U/L (0-41) 06/14/24 13:12 Alkaline Phosphatase 91 U/L (40-130) 06/14/24 13:12 Troponin T Baseline 75 ng/L (0-15) H 06/14/24 13:12 Troponin T 120 Minute 61.12 ng/L (0-15) H 06/14/24 16:10 Delta Troponin T -13.88 ABS# (0-10) L 06/14/24 16:10 Total Protein 7.2 g/dL (6.6-8.7) 06/14/24 13:12 Albumin 4.6 g/dL (3.5-5.2) 06/14/24 13:12 Globulin 2.6 g/dL (1.3-4.6) 06/14/24 13:12 All radiology interpretation(s) finalized by discharge Discharge Plan Discharge Patient Disposition: Home Clinical Impression: Acute exacerbation of chronic obstructive airways disease Condition: Stable Prescriptions: New doxycycline hyclate 100 mg capsule 100 mg PO BID 10 Days Qty: 20 0RF prednisone 20 mg tablet 20 mg PO TID Qty: 15 0RF Rx Instructions: 1 p.o. 3 times daily x3 days, 1 p.o. twice daily x2 days, 1 p.o. daily x2 days No Action albuterol sulfate [Ventolin HFA] 90 mcg/actuation HFA aerosol inhaler 2 puff INHALATION Q6H PRN (Reason: breathing) Qty: 8.5 1RF Eliquis 5 mg tablet 5 mg PO BID Qty: 60 2RF furosemide 40 mg tablet 40 mg PO QAM Qty: 30 5RF metoprolol succinate 25 mg tablet extended release 24 hr 12.5 mg PO BID Qty: 60 2RF simvastatin 40 mg tablet 40 mg PO QPM Qty: 30 2RF Jardiance 10 mg tablet 10 mg PO DAILY Qty: 30 2RF prednisone 20 mg tablet 20 mg PO DAILY Qty: 30 0RF albuterol sulfate 2.5 mg /3 mL (0.083 %) solution for nebulization 2.5 mg inhalation Q6H PRN (Reason: shortness of breath or wheezing) Qty: 90 0RF losartan 50 mg tablet 50 mg PO DAILY Qty: 90 1RF buspirone 7.5 mg tablet 7.5 mg PO TID Qty: 60 2RF nitroglycerin 0.4 mg tablet, sublingual 0.4 mg sublingual Q5M PRN (Reason: chest pain) Qty: 30 2RF Rx Instructions: do not exceed 3 doses per episode sulfamethoxazole-trimethoprim [Bactrim DS] 800-160 mg Tablet 1 tab PO .EVERY OTHER DAY Discharge Orders: Discharge ED (Routine); Ordered 06/14/24 Ordered By: Schuyler Echevarria Referrals: Natalia Alvarado, PRODUCT ANALYST [Primary Care Provider] - Discharge Diet: Usual diet Discharge Activity: Increase activity as tolerated Patient Instructions: Opioid Safety, Pain Management Activity Restrictions/Additional Instructions: Thank you for choosing [facility] for your healthcare needs today. It is very important that you follow up as instructed or that you return to the Emergency Department should you have concerns or if your condition changes or worsens in any way. You are seen emergency room for complaints of shortness of breath. Chest x-ray did not show any acute infiltrates. Your white count was elevated but this is likely due to your chronic use of steroids. Cardiac enzymes and EKG did not show anything acute. Recommend increasing her steroid dose and I will start you on a 10-day course of doxycycline. Continue to use your rescue inhalers as needed follow-up with your primary care doctor as needed Print Language: Beninese Coding Level of Care Code ED Multi Craft Maintenance Technician for Mirna Harman
[2024-06-14 15:01] VITALS: BP 98/81; PULSE 85; O2SAT 98
[2024-06-14] MEDS: ipratropium-albuterol 3 mL Neb INHALATION (15:20)
[2024-06-14 15:22] VITALS: PULSE 86; RESP 16; O2SAT 98
[2024-06-14 16:39] VITALS: BP 130/90; PULSE 83; O2SAT 99
[2024-06-14] MEDS: sodium chloride 0.9% 1,000 ML 999 ML IV (16:39)
[2024-06-14] MEDS: methylPREDNISolone sod succ 125 mg/2 mL INJ IVP (16:39)
[2024-06-14 17:22] LABS: Troponin 5 2HR 61.12 ng/L (0-15)
[2024-06-14 17:23] LABS: Troponin 5 2HR Delta -13.88 ABS# (0-10)
[2024-06-14 17:50] VITALS: BP 129/85; PULSE 95; O2SAT 98
[2024-06-14 18:25] LABS: Influenza A NEGATIVE (Negative); Influenza B NEGATIVE (Negative); Respiratory Syncytial Virus Ce NEGATIVE (Negative); SARS-CoV-2 PCR NEGATIVE (Negative)
== END 2024-06-14 17:50 | disposition home or self-care (01) ==
PROVIDERS: Emergency Medicine; Emergency Provider Family Medicine
DX: J44.1 Chronic obstructive pulmonary disease with (acute) exacerbation (principal); Z79.01 Long term (current) use of anticoagulants; E78.5 Hyperlipidemia, unspecified; E11.9 Type 2 diabetes mellitus without complications
CPT/HCPCS: 36415; 71045; 80053; 84484; 85025; 87637; 93005; 94640; 96361; 96374; 99285; J2919; J7030; J9999

== ENCOUNTER 2024-06-27 11:15 | Oncology outpatient (recurring) (ONCR) | payer MEDICARE, SELFPAY ==
[2024-06-07 14:55] LABS: Basophils # 0.1 10^3/uL (0.0-0.1); Basophils % 0.3 %; Eosinophils # 0.1 10^3/uL (0.0-0.8); Eosinophils % 0.7 %; Hematocrit 41.5 % (37-53); Lymphocytes # 1.2 10^3/uL (0.8-4.8); Lymphocytes % 5.8 %; Mean Corpuscular Hemoglobin 30.6 pg (27-33); Mean Corpuscular Volume 95.4 fl (82-101); Mean Platelet Volume 9.5 fL (7.4-10.4); Monocytes # 1.4 10^3/uL (0.2-0.9); Monocytes % 6.9 %; Neutrophils # 16.65 10^3/uL (1.8-7.7); Neutrophils % 83.3 %; Nucleated Red Blood Cells % 0 %; Platelet Count 255 10^3/cmm (157-399); Red Blood Count 4.35 10^6/uL (3.85-5.65); Red Cell Distribution Width 15.6 % (12.1-15.1); White Blood Count 19.97 10^3/uL (3.29-11.43)
[2024-06-07 15:12] LABS: Alanine Aminotransferase 21 U/L (0-41); Albumin Level 4.1 g/dL (3.5-5.2); Alkaline Phosphatase 74 U/L (40-130); Anion Gap 17.3 (5-19); Aspartate Amino Transferase 13 U/L (0-40); Blood Urea Nitrogen 25 mg/dL (8-23); Calcium 8.9 mg/dL (8.5-10.5); Carbon Dioxide 23 mmol/L (22-29); Chloride 103 mmol/L (98-107); Globulin 2.1 g/dL (1.3-4.6); Glucose 106 mg/dL (65-115); Osmolality Calculated 293 mOsm/kg (285-295); Potassium 4.3 mmol/L (3.5-5.1); Sodium 139 mmol/L (136-145); Total Bilirubin 0.2 mg/dL (0.15-1.2); Total Protein 6.2 g/dL (6.6-8.7)
--- NOTE | 2024-06-27 11:15 | US_ITS ---
WS: [id number] INDICATION: RIGHT axillary mass TECHNIQUE: Ultrasound RIGHT axilla FINDINGS: Ultrasound RIGHT axilla area of concern. There is a well-circumscribed fluid collection measuring approximately 3.7 x 1.9 x 2.5 cm with a small amount of internal debris. This likely represents postoperative seroma considering given history of prior RIGHT axillary lymph node dissection. Recommend correlation with clinical history. US/US soft tissue/extremity [id number] IMPRESSION: See above
[2024-06-27] MEDS: iohexol 350 mg/mL 500 mL Btl (per mL) PO (12:51)
--- NOTE | 2024-06-27 13:00 | CTR_ITS ---
PROCEDURE INFORMATION: Exam: CT Chest With Contrast; Diagnostic Exam date and time: 06/27/2024 1:01 PM Age: 64 years old Clinical indication: Condition or disease; [place]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 TECHNIQUE: Imaging protocol: Diagnostic computed tomography of the chest with contrast. Radiation optimization: All CT scans at this facility use at least one of these dose optimization techniques: automated exposure control; mA and/or kV adjustment per patient size (includes targeted exams where dose is matched to clinical indication); or iterative reconstruction. Contrast material: OMNI 350; Contrast volume: 100 ml; Contrast route: INTRAVENOUS (IV); COMPARISON: CT angio chest PE prot [id number] 04/11/2024 1:19 AM RADIATION DOSE METRICS: Total DLP (mGy-cm): 913.83 FINDINGS: Tubes, catheters and devices: Surgical clips and a 4.3 x 2.5 cm fluid collection in the right chest wall probably represents a postoperative seroma. Lungs: Calcified granuloma in the right upper lobe. Pleural spaces: Unremarkable. No pneumothorax. No pleural effusion. Heart: Unremarkable. No cardiomegaly. No pericardial effusion. Lymph nodes: Unremarkable. No enlarged lymph nodes. Vasculature: Unremarkable. No aortic aneurysm. Bones/joints: Osteopenia and degenerative changes involve the thoracic spine with multiple vertebral body compressions and a lower thoracic kyphoplasty. Soft tissues: Unremarkable. 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 Radiation optimization: All CT scans at this facility use at least one of these dose optimization techniques: automated exposure control; mA and/or kV adjustment per patient size (includes targeted exams where dose is matched to clinical indication); or iterative reconstruction. Contrast material: OMNI 350; Contrast volume: 100 ml; Contrast route: INTRAVENOUS (IV); COMPARISON: CT angio chest PE prot [id number] 04/11/2024 1:19 AM RADIATION DOSE METRICS: Total DLP (mGy-cm): 913.83 FINDINGS: Liver: Normal. No mass. Gallbladder and biliary ducts: Cholecystectomy. Pancreas: Normal. No ductal dilation. Spleen: Normal. No splenomegaly. Adrenal glands: Normal. No mass. Kidneys and ureters: Normal. No hydronephrosis. Stomach and bowel: Unremarkable. No obstruction. No mucosal thickening. Appendix: No evidence of appendicitis. Intraperitoneal space: Unremarkable. No free air. No significant fluid collection. Vasculature: Unremarkable. No abdominal aortic aneurysm. Lymph nodes: Unremarkable. No enlarged lymph nodes. Urinary bladder: Unremarkable as visualized. Reproductive: Unremarkable as visualized. Bones/joints: Unremarkable. No acute fracture. Soft tissues: Unremarkable. CT/CT chest abdpel w/*[id number] IMPRESSION: 1. No acute findings. 2. No evidence of neoplastic disease. 3. Postoperative seroma in the right axilla.
[2024-06-27] MEDS: iohexol 350 mg/mL 500 mL Btl (per mL) IV (13:17)
== END 2024-07-02 23:59 | disposition home or self-care (01) ==
LOC: RAD 06-28 → ONCMED 06-28 06:35
PROVIDERS: Visit Provider Internal Medicine
DX: C4A.61 Merkel cell carcinoma of right upper limb, including shoulder (principal); R22.9 Localized swelling, mass and lump, unspecified
CPT/HCPCS: 36415; 71260; 74177; 76882; 80053; 85025; 99213

== ENCOUNTER 2024-07-04 13:52 | Oncology outpatient (recurring) (ONCR) | payer MEDICARE, SELFPAY ==
[2024-07-04 14:21] LABS: Basophils % 0.2 %; Eosinophils % 0.1 %; Hematocrit 43.5 % (37-53); Lymphocytes # 0.6 10^3/uL (0.8-4.8); Lymphocytes % 3.6 %; Mean Corpuscular HGB Conc 31.5 g/dL (30-55); Mean Corpuscular Volume 95.2 fl (82-101); Monocytes # 0.9 10^3/uL (0.2-0.9); Monocytes % 5.4 %; Neutrophils # 15.08 10^3/uL (1.8-7.7); Neutrophils % 88.8 %; Nucleated Red Blood Cells % 0 %; Platelet Count 215 10^3/cmm (157-399); Red Blood Count 4.57 10^6/uL (3.85-5.65); Red Cell Distribution Width 16.5 % (12.1-15.1); White Blood Count 16.97 10^3/uL (3.29-11.43)
[2024-07-04 14:24] LABS: Leukemia Profile (BBPL) See Report
[2024-07-04 14:38] LABS: Alanine Aminotransferase 25 U/L (0-41); Alkaline Phosphatase 73 U/L (40-130); Anion Gap 18.1 (5-19); Aspartate Amino Transferase 16 U/L (0-40); Blood Urea Nitrogen 20 mg/dL (8-23); Calcium 8.9 mg/dL (8.5-10.5); Carbon Dioxide 26 mmol/L (22-29); Chloride 98 mmol/L (98-107); Creatinine Clr Calc Pharmacy 72.9192; Globulin 2.3 g/dL (1.3-4.6); Glomerular Filtration Rate 75.7 mL/min (90-130); Glucose 197 mg/dL (65-115); Lactate Dehydrogenase 207 U/L (135-225); Osmolality Calculated 294 mOsm/kg (285-295); Potassium 4.1 mmol/L (3.5-5.1); Sodium 138 mmol/L (136-145); Total Bilirubin 0.3 mg/dL (0.15-1.2); Total Protein 6.3 g/dL (6.6-8.7); Uric Acid 7.5 mg/dL (3.4-7.0)
== END 2024-08-01 23:59 | disposition home or self-care (01) ==
PROVIDERS: Visit Provider Internal Medicine
DX: Z08 Encounter for follow-up examination after completed treatment for malignant neoplasm (principal); Z85.821 Personal history of Merkel cell carcinoma; Z78.9 Other specified health status; D72.829 Elevated white blood cell count, unspecified
CPT/HCPCS: 36415; 80053; 83615; 84550; 85025; 88184; 88185; 99213

== ENCOUNTER 2024-08-03 11:08 | Oncology outpatient (recurring) (ONCR) | payer MEDICARE, MEDICAID, SELFPAY ==
[2024-08-07 21:44] LABS: P190 BCR ALB1 NOT DETECTED; P190 BCR ALB1 Yes Test Yes; P210 BCR ALB1 NOT DETECTED; P210 BCR ALB1 Yes Test Yes; Prior Results NG; Source blood
== END 2024-09-01 23:59 | disposition home or self-care (01) ==
LOC: ONCMED 11:09
PROVIDERS: Visit Provider Internal Medicine
DX: C4A.61 Merkel cell carcinoma of right upper limb, including shoulder (principal); D75.89 Other specified diseases of blood and blood-forming organs
CPT/HCPCS: 36415; 81206; 81207

== ENCOUNTER → 2024-08-20 11:09 | Outpatient (BNVA) | payer MEDICARE, MEDICAID, SELFPAY | DX: E11.9 Type 2 diabetes mellitus without complications (principal); E78.49 Other hyperlipidemia | CPT/HCPCS: 80053; 80061; 83036 ==

== ENCOUNTER 2024-09-12 13:34 | Oncology outpatient (recurring) (ONCR) | payer MEDICARE, MEDICAID, SELFPAY ==
[2024-09-12 14:40] LABS: Basophils % 0.2 %; Eosinophils % 0.1 %; Lymphocytes # 0.8 10^3/uL (0.8-4.8); Lymphocytes % 4.8 %; Mean Corpuscular HGB Conc 32.1 g/dL (30-55); Mean Corpuscular Hemoglobin 31.8 pg (27-33); Mean Corpuscular Volume 99.1 fl (82-101); Mean Platelet Volume 9.6 fL (7.4-10.4); Monocytes # 1.2 10^3/uL (0.2-0.9); Monocytes % 6.6 %; Neutrophils # 15.16 10^3/uL (1.8-7.7); Neutrophils % 86.1 %; Nucleated Red Blood Cells % 0 %; Platelet Count 253 10^3/cmm (157-399); Red Blood Count 4.34 10^6/uL (3.85-5.65); Red Cell Distribution Width 15.9 % (12.1-15.1)
[2024-09-12 14:56] LABS: Alanine Aminotransferase 22 U/L (0-41); Albumin Level 3.2 g/dL (3.5-5.2); Alkaline Phosphatase 85 U/L (40-130); Anion Gap 15.2 (5-19); Aspartate Amino Transferase 13 U/L (0-40); Blood Urea Nitrogen 26 mg/dL (8-23); Carbon Dioxide 27 mmol/L (22-29); Chloride 101 mmol/L (98-107); Glucose 221 mg/dL (65-115); Lactate Dehydrogenase 186 U/L (135-225); Osmolality Calculated 300 mOsm/kg (285-295); Potassium 4.2 mmol/L (3.5-5.1); Sodium 139 mmol/L (136-145); Total Bilirubin 0.3 mg/dL (0.15-1.2); Total Protein 6.2 g/dL (6.6-8.7)
== END 2024-10-01 23:59 | disposition home or self-care (01) ==
PROVIDERS: Visit Provider Internal Medicine
DX: Z08 Encounter for follow-up examination after completed treatment for malignant neoplasm (principal); Z85.821 Personal history of Merkel cell carcinoma; F17.220 Nicotine dependence, chewing tobacco, uncomplicated
CPT/HCPCS: 36415; 80053; 83615; 85025; 99213

== ENCOUNTER → 2024-09-18 13:44 | Outpatient (BNVA) | payer MEDICARE, MEDICAID, SELFPAY | PROVIDERS: Visit Provider Dermatology | DX: S90.111A Contusion of right great toe without damage to nail, initial encounter (principal); L85.3 Xerosis cutis; Z85.821 Personal history of Merkel cell carcinoma; Z08 Encounter for follow-up examination after completed treatment for malignant neoplasm; Z85.828 Personal history of other malignant neoplasm of skin; D48.5 Neoplasm of uncertain behavior of skin; L57.0 Actinic keratosis | CPT/HCPCS: 11104; 17000; 99213 ==

== ENCOUNTER → 2024-10-01 12:25 | Outpatient (BNVA) | payer MEDICARE, MEDICAID, SELFPAY | PROVIDERS: Visit Provider Internal Medicine | DX: I25.10 Atherosclerotic heart disease of native coronary artery without angina pectoris (principal); I11.0 Hypertensive heart disease with heart failure; I50.32 Chronic diastolic (congestive) heart failure; E78.49 Other hyperlipidemia; D86.9 Sarcoidosis, unspecified; Z79.01 Long term (current) use of anticoagulants; Z79.82 Long term (current) use of aspirin; Z95.5 Presence of coronary angioplasty implant and graft; R07.9 Chest pain, unspecified | CPT/HCPCS: 93005; 99214 ==

== ENCOUNTER 2024-10-09 11:22 | Outpatient (CLI) | payer MEDICARE, MEDICAID, SELFPAY ==
--- NOTE | 2024-10-09 11:25 | XRR_ITS ---
PROCEDURE INFORMATION: Exam: XR Thoracic Spine Exam date and time: 10/09/2024 12:06 PM Age: 64 years old Clinical indication: Injury or trauma; Fall; Blunt trauma (contusions or hematomas); Prior surgery; Surgery date: 6+ months; Surgery type: Kypho; Additional info: Back pain TECHNIQUE: Imaging protocol: Radiologic exam of the thoracic spine. Views: 3 views. COMPARISON: CR XR thoracic spine 2V [id number] 10/01/2021 3:10 PM FINDINGS: Bones/joints: Lower thoracic kyphoplasty. Mild loss of height of multiple thoracic vertebral bodies unchanged from before. No lytic or sclerotic bone lesion. . No acute fracture. Normal alignment. Soft tissues: Unremarkable. XR/XR thoracic spine 3V* [id number] IMPRESSION: The only change is interval kyphoplasty.
--- NOTE | 2024-10-09 11:25 | XRR_ITS ---
PROCEDURE INFORMATION: Exam: XR Lumbosacral Spine Exam date and time: 10/09/2024 12:06 PM Age: 64 years old Clinical indication: Injury or trauma; Fall; Blunt trauma (contusions or hematomas); Additional info: Back pain TECHNIQUE: Imaging protocol: Radiologic exam of the lumbosacral spine. Views: 2 or 3 views. COMPARISON: NM bone scan whole body* [id number] 01/20/2018 8:21 AM FINDINGS: Bones/joints: Mild loss of height of T12 and L1 through L4. This is probably on the basis of the moderate diffuse osteopenia which is present. Slight disc space narrowing at L5-S1. Slight anterior spurring. . No acute fracture. Normal alignment. Soft tissues: Unremarkable. XR/XR lumbar spine 2-3V* [id number] IMPRESSION: Mild compression of T12 +most lumbar vertebral bodies. These are likely chronic changes.
== END 2024-10-09 11:23 | disposition home or self-care (01) ==
DX: M54.9 Dorsalgia, unspecified (principal); G89.29 Other chronic pain; W19.XXXA Unspecified fall, initial encounter
CPT/HCPCS: 72072; 72100

== ENCOUNTER → 2024-10-15 08:33 | Outpatient (BNVA) | payer MEDICARE, MEDICAID, SELFPAY | PROVIDERS: Visit Provider Anesthesiology Pain Medicine | DX: S32.000A Wedge compression fracture of unspecified lumbar vertebra, initial encounter for closed fracture (principal); M54.9 Dorsalgia, unspecified; G89.29 Other chronic pain; X58.XXXA Exposure to other specified factors, initial encounter | CPT/HCPCS: 99204 ==

== ENCOUNTER 2024-10-19 14:05 | Oncology outpatient (recurring) (ONCR) | payer MEDICARE, MEDICAID, SELFPAY | END 2024-11-01 23:59 | disposition home or self-care (01) | LOC: RAD 14:05 → ONCMED 10-22 09:19 | PROVIDERS: Visit Provider Anesthesiology Pain Medicine | DX: Z08 Encounter for follow-up examination after completed treatment for malignant neoplasm (principal); Z85.821 Personal history of Merkel cell carcinoma; F17.220 Nicotine dependence, chewing tobacco, uncomplicated; C4A.61 Merkel cell carcinoma of right upper limb, including shoulder; D75.89 Other specified diseases of blood and blood-forming organs; S32.000A Wedge compression fracture of unspecified lumbar vertebra, initial encounter for closed fracture ==

== ENCOUNTER 2024-12-04 12:01 | Inpatient (IN) | payer MEDICARE, MEDICAID, SELFPAY ==
[2024-12-04] VITALS (23 sets, daily range): BP systolic 107–140; BP diastolic 68–97; PULSE 89–123; RESP 12–47; TEMP 36.6; O2SAT 88–100
--- NOTE | 2024-12-04 12:02 | XRR_ITS ---
PROCEDURE INFORMATION: Exam: XR Chest Exam date and time: 12/04/2024 12:14 PM Age: 64 years old Clinical indication: Shortness of breath; Additional info: SOB TECHNIQUE: Imaging protocol: Radiologic exam of the chest. Views: 1 view. COMPARISON: CR XR chest 1V portable [id number] 06/14/2024 12:20 PM FINDINGS: Lungs: No consolidation. Pleural spaces: No sizable pleural effusion or pneumothorax. Heart/Mediastinum: No cardiomegaly. Bones/joints: Unremarkable. XR/XR chest 1V portable [id number] IMPRESSION: No acute intrathoracic findings.
--- OUTSIDE RECORDS SUMMARY | 2024-12-04 12:07 | XMS_ITS | Clinical Summary ---
Author Organization [facility] Address [address] [place] [address] Phone Care Team Providers Care Jacket Preparer Name Role Phone Refugio Bedoya Primary Care Provider [phone] Allergies Active Allergy Reactions Criticality Noted Date Comments Eucalyptus Oil 03/11/2020 Other reaction(s): Unknown Ibuprofen 01/03/2018 Other reaction(s): kidney failure Ketorolac Tromethamine 03/11/2020 Other reaction(s): Unknown Menthol 03/11/2020 Other reaction(s): Unknown Tramadol 01/03/2018 Medications metoprolol succinate 25 mg capsule,sprinkle,E R 24hr 1 capsule 1 (one) time each day at the same time. Active potassium bicarb-citric acid 10 mEq tablet, effervescent 1 tablet 1 (one) time each day at the same time. Active aspirin 81 mg EC tablet Active furosemide (Lasix) 40 mg tablet 20 tablets 1 (one) time each day at the same time. Active potassium chloride ER (Micro-K) 10 mEq ER capsule 1 capsule 1 (one) time each day at the same time. Active simvastatin (Zocor) 40 mg tablet 1 tablet 1 (one) time each day at the same time. Active lisinopriL (Prinivil, Zestril) 5 mg tablet Take 5 mg by mouth 1 (one) time each day. Active losartan (Cozaar) 50 mg tablet Take 50 mg by mouth 1 (one) time each day. Active fluticasone propion-salmeteroL (Advair HFA) 230-21 mcg/actuation inhalerIndications :History of COPD Inhale 2 puffs 2 (two) times a day. Rinse mouth with water after use to reduce aftertaste and incidence of candidiasis. Do not swallow. 12 g 11 12/26/19 24 Active Additional Information Patient not taking.Reported on 05/30/2024 sulfamethoxazole-t rimethoprim (Bactrim DS,Septra DS) 800-160 mg tabletIndications: Sarcoidosis Take 1 tablet MWF. 12 tablet 04/16/19 25 Active predniSONE (Deltasone) 20 mg tabletIndications: Sarcoidosis Take 1 tablet (20 mg total) by mouth 1 (one) time each day. 30 tablet 04/16/19 25 Active apixaban (ELIQUIS ORAL) Take by mouth. Activ e albuterol (Proventil;Ventoli n) 90 mcg/actuation inhalerIndications :Sarcoidosis,Stage 3 severe COPD by GOLD classification (CMS/[facility]) Inhale 2 puffs 4 (four) times a day if needed for wheezing or shortness of breath. 18 g 11 06/05/19 25 Active albuterol 2.5 mg /3 mL (0.083 %) nebulizer solutionIndication s:Chronic obstructive pulmonary disease, unspecified COPD type (CMS/HCC) Take 3 mL (2.5 mg total) by nebulization every 4 (four) hours if needed for wheezing. 360 mL 07/03/19 25 025 Active Hospital, Clinic, or Other Facility Administered Medication Ordered Dose Route Frequency Start Date End Date Status albuterol (Proventil;Ventolin) 90 mcg/actuation inhaler 4 puffIndications:Sarcoidosis 4 puff inhl Once 06/17/2021 Active Active Problems Problem Noted Date Diagnosed Date Overweight (BMI 25.0-29.9) 11/12/2021 Assessment & Plan (01/18/2024 1:40 PM CDT): Body mass index is 28.29 kg/m . Recommend healthy diet, routine exercise, and weight loss. Assessment & Plan (09/20/2023 10:34 AM CDT): Body mass index is 28.29 kg/m . Recommend healthy diet, routine exercise, and weight loss. Assessment & Plan (12/28/2022 1:52 PM CDT): Body mass index is 29.35 kg/m . Discuss importance of a healthy diet, routine exercise, and weight loss. Assessment & Plan (06/01/2022 2:02 PM MAILING MACHINE ASSISTANT): Body mass index is 29.62 kg/m . Discuss importance of a healthy diet, routine exercise, and weight loss. Assessment & Plan (03/18/2022 1:29 PM MAILING MACHINE ASSISTANT): Body mass index is 27.29 kg/m . Discuss importance of a healthy diet, routine exercise, and weight loss. Assessment & Plan (11/12/2021 5:11 PM CDT): Body mass index is 29.29 kg/m . Discuss importance of a healthy diet, routine exercise, and weight loss. Obstructive sleep apnea 11/12/2021 Overview (03/18/2022): Apneic episodes are noted during his recent admission to [facility]. Patient endorses unrefreshing sleep and snoring. He scored a 7 on the [place] Sleepiness Scale. Sleep study was ordered at his November 2021 visit, but multiple appointments were canceled by the patient. Assessment & Plan (03/18/2022 1:31 PM MAILING MACHINE ASSISTANT): Patient should avoid driving while sleepy and sedative/narcotics at bedtime. Weight loss may also be of some benefit. Assessment & Plan (11/12/2021 5:16 PM CDT): Polysomnography ordered. Patient should avoid driving while sleepy and sedative/narcotics at bedtime. Weight loss may also be of some benefit. Non-smoker 09/17/2021 Overview (06/01/2022): Lifelong non-smoker. Smokeless tobacco use 09/17/2021 Overview (06/01/2022): Patient chews tobacco, and 1 can lasts a couple of days. Assessment & Plan (05/30/2024 2:27 PM MAILING MACHINE ASSISTANT): Cough, sputum production, shortness of breath, dysphagia, snoring, and apnea were found to be significantly increased in smokeless tobacco users per the medical literature. Advise cessation. Assessment & Plan (01/18/2024 1:41 PM CDT): Cough, sputum production, shortness of breath, dysphagia, snoring, and apnea were found to be significantly increased in smokeless tobacco users per the medical literature. Advise cessation. Assessment & Plan (09/20/2023 10:35 AM CDT): Cough, sputum production, shortness of breath, dysphagia, snoring, and apnea were found to be significantly increased in smokeless tobacco users per the medical literature. Advise cessation. Assessment & Plan (05/03/2023 3:04 PM MAILING MACHINE ASSISTANT): Cough, sputum production, shortness of breath, dysphagia, snoring, and apnea were found to be significantly increased in smokeless tobacco users per the medical literature. Advise cessation. Assessment & Plan (12/28/2022 1:11 PM CDT): Cough, sputum production, shortness of breath, dysphagia, snoring, and apnea were found to be significantly increased in smokeless tobacco users per the medical literature. Advise cessation. Assessment & Plan (08/31/2022 1:30 PM CDT): Advise cessation. Assessment & Plan (06/01/2022 2:03 PM MAILING MACHINE ASSISTANT): Advise cessation. Allergic rhinitis due to animal hair and dander 06/17/2021 Overview (01/18/2024): Region 8 allergen panel was positive for cat dander on 11/01/2016, and his total serum IgE was 86. Assessment & Plan (05/30/2024 2:12 PM MAILING MACHINE ASSISTANT): Recommend Rosanne, Claritin, Zyrtec, or Xyzal for symptomatic relief. Assessment & Plan (01/18/2024 1:40 PM CDT): Recommend Rosanne, Claritin, Zyrtec, or Xyzal for symptomatic relief. Assessment & Plan (09/20/2023 10:35 AM CDT): Recommend Rosanne, Claritin, Zyrtec, or Xyzal for symptomatic relief. Assessment & Plan (05/03/2023 3:04 PM MAILING MACHINE ASSISTANT): Recommend Rosanne, Claritin, Zyrtec, or Xyzal for symptomatic relief. Assessment & Plan (12/28/2022 1:10 PM CDT): Recommend Rosanne, Claritin, Zyrtec, or Xyzal for symptomatic relief. Assessment & Plan (08/31/2022 1:30 PM CDT): Recommend Rosanne, Claritin, Zyrtec, or Xyzal for symptomatic relief. Assessment & Plan (06/01/2022 2:03 PM MAILING MACHINE ASSISTANT): Recommend Rosanne, Claritin, Zyrtec, or Xyzal for symptomatic relief. Assessment & Plan (03/18/2022 1:29 PM MAILING MACHINE ASSISTANT): Recommend Rosanne, Claritin, Zyrtec, or Xyzal for symptomatic relief. Assessment & Plan (11/12/2021 5:12 PM CDT): Recommend Rosanne, Claritin, Zyrtec, or Xyzal for symptomatic relief. May also add Flonase or equivalent. Assessment & Plan (09/17/2021 2:37 PM CDT): Recommend Rosanne, Claritin, or Zyrtec for symptomatic relief. Assessment & Plan (06/17/2021 2:26 PM CDT): Recommend Rosanne, Claritin, or Zyrtec for symptomatic relief. Second hand smoke exposure 06/17/2021 Overview (06/01/2022): Patient reports 15 years of secondhand smoke exposure. Obesity (BMI 30-39.9) 06/17/2021 Assessment & Plan (08/31/2022 1:29 PM CDT): Body mass index is 30.45 kg/m . Discuss importance of a healthy diet, routine exercise, and weight loss. Assessment & Plan (09/17/2021 2:33 PM CDT): Body mass index is 30.73 kg/m . Discuss importance of a healthy diet, routine exercise, and weight loss. Assessment & Plan (06/17/2021 2:24 PM CDT): Body mass index is 30.73 kg/m . Discuss importance of a healthy diet, routine exercise, and weight loss. Immunization counseling 06/17/2021 Overview (05/03/2023): Recommend annual influenza vaccination. Received pneumococcal vaccination in the past. Recommend PCV20 at least 1 year after last pneumococcal vaccine. Recommend COVID-19 vaccination. Recommend RSV vaccination. Assessment & Plan (06/17/2021 2:24 PM CDT): Despite extensive counseling, patient refuses influenza vaccination. Received Pneumovax in the past. Recommend COVID-19 vaccination. Stage 3 severe COPD by GOLD classification 06/17 Overview (12/28/2022): GOLD stage III, group E. PFTs from 07/16/2021 showed FEV1/FVC ratio 65%, postbronchodilator FEV1 42%, TLC 95%, RV 147%, and DLCO 65%. He was previously diagnosed with mild COPD at [facility]. Insurance does not cover Symbicort or Spiriva Respimat. Assessment & Plan (05/30/2024 2:12 PM MAILING MACHINE ASSISTANT): Continue Advair HFA 230/21 mcg 2 puffs twice daily. Advised mouth rinsing after use to avoid thrush. Continue Incruse 62.5 mcg 1 inhalation daily. Continue albuterol HFA/nebs every 6 hours as needed for shortness of breath, wheezing, cough. Assessment & Plan (01/18/2024 1:40 PM CDT): Continue Advair HFA 230/21 mcg 2 puffs twice daily. Advised mouth rinsing after use to avoid thrush. Continue Incruse 62.5 mcg 1 inhalation daily. Continue albuterol HFA/nebs every 6 hours as needed for shortness of breath, wheezing, cough. Assessment & Plan (09/20/2023 10:35 AM CDT): Continue Advair HFA 230/21 mcg 2 puffs twice daily. Advised mouth rinsing after use to avoid thrush. Continue Incruse 62.5 mcg 1 inhalation daily. Continue albuterol HFA/nebs every 6 hours as needed for shortness of breath, wheezing, cough. Assessment & Plan (05/03/2023 3:10 PM MAILING MACHINE ASSISTANT): Continue Advair HFA 230/21 mcg 2 puffs twice daily. Advised mouth rinsing after use to avoid thrush. Continue Incruse 62.5 mcg 1 inhalation daily. Continue albuterol HFA/nebs 4 times daily as needed for shortness of breath, wheezing, cough. Albuterol HFA refilled today. Assessment & Plan (12/28/2022 1:10 PM CDT): Continue Advair HFA 230/21 mcg 2 puffs twice daily. Advised mouth rinsing after use to avoid thrush. Continue Incruse 62.5 mcg 1 inhalation daily. Continue albuterol HFA/nebs 4 times daily as needed for shortness of breath, wheezing, cough. Assessment & Plan (08/31/2022 1:29 PM CDT): Continue Advair HFA 230/21 mcg 2 puffs twice daily. Advised mouth rinsing after use to avoid thrush. Continue Incruse 62.5 mcg 1 inhalation daily. Continue albuterol HFA/nebs 4 times daily as needed for shortness of breath, wheezing, cough. Assessment & Plan (06/01/2022 2:02 PM MAILING MACHINE ASSISTANT): Continue Advair HFA 230/21 mcg 2 puffs twice daily. Advised mouth rinsing after use to avoid thrush. Continue Incruse 62.5 mcg 1 inhalation daily. Continue albuterol HFA/nebs 4 times daily as needed for shortness of breath, wheezing, cough. Assessment & Plan (03/18/2022 1:29 PM MAILING MACHINE ASSISTANT): Continue Advair HFA 230/21 mcg 2 puffs twice daily. Advised mouth rinsing after use to avoid thrush. Continue Incruse 62.5 mcg 1 inhalation daily. Continue albuterol HFA/nebs 4 times daily as needed for shortness of breath, wheezing, cough. Assessment & Plan (11/12/2021 5:12 PM CDT): Continue Advair HFA 230/21 mcg 2 puffs twice daily. Advised mouth rinsing after use to avoid thrush. Continue Incruse 62.5 mcg 1 inhalation daily. Continue albuterol HFA/nebs 4 times daily as needed for shortness of breath, wheezing, cough. Assessment & Plan (09/17/2021 2:47 PM CDT): Start Incruse 62.5 mcg 1 inhalation daily. Continue Advair HFA 230/21 mcg 2 puffs twice daily. Advised mouth rinsing after use to avoid thrush. Continue albuterol HFA/nebs 4 times daily as needed for shortness of breath, wheezing, cough. Assessment & Plan (06/17/2021 2:33 PM CDT): Continue Advair HFA 230/21 MCG 2 puffs twice daily. Advised mouth rinsing after use to avoid thrush. Continue albuterol HFA/nebs 4 times daily as needed for shortness of breath, wheezing, cough. Check full PFTs. Sarcoidosis 03/17/2020 Overview (05/30/2024): Patient suffered multiple severe exacerbations from May 2015 to December 2016. In each of those cases, he received antibiotics and steroids. Treatment resulted in dramatic improvement, and symptoms resurge following completion of systemic steroids. I suspected sarcoidosis based on this as well as reports of rash, blurry vision, and lymphadenopathy present on chest imaging. He underwent EBUS with biopsy of his subcarinal lymph node on 12/03/2016. No granulomas were noted, and pathology was negative for malignancy. TERRA level was normal at 11 and his calcium was 9.8 on 11/01/2016. Hepatitis B/C negative. QuantiFERON gold negative. Weaning off of prednisone has been unsuccessful over the years, and when osteoporosis and vertebral compression fractures were noted, I expressed concern that chronic prednisone was leading to such. He switched to methotrexate, but proved intolerant of this medication due to nausea and headaches. This was in spite of increased folic acid supplementation. Patient is symptomatic at doses of prednisone below 20 mg daily. Previously discussed alternatives such as rituximab, and offered referral to tertiary care center for evaluation and treatment. Patient deferred. Assessment & Plan (05/30/2024 2:12 PM MAILING MACHINE ASSISTANT): Prednisone 20 mg daily with Bactrim MWF for pneumocystis prophylaxis. Recommend annual ophthalmology examination to assess for ocular involvement. Assessment & Plan (01/18/2024 1:41 PM CDT): Continue prednisone 20 mg daily with Bactrim DS MWF for pneumocystis prophylaxis. Recommend annual ophthalmologic examination to assess for ocular involvement. Assessment & Plan (09/20/2023 10:35 AM CDT): Continue prednisone 20 mg daily with Bactrim DS MWF for pneumocystis prophylaxis. Recommend annual ophthalmologic examination to assess for ocular involvement. Assessment & Plan (05/03/2023 3:04 PM MAILING MACHINE ASSISTANT): Continue prednisone 20 mg daily with Bactrim DS MWF for pneumocystis prophylaxis. Recommend annual ophthalmologic examination to assess for ocular involvement. Assessment & Plan (12/28/2022 1:11 PM CDT): Continue prednisone 20 mg daily with Bactrim DS MWF for pneumocystis prophylaxis. Recommend annual ophthalmologic examination to assess for ocular involvement. Assessment & Plan (08/31/2022 1:30 PM CDT): Continue prednisone 20 mg daily with Bactrim for pneumocystis prophylaxis. Assessment & Plan (06/01/2022 2:05 PM MAILING MACHINE ASSISTANT): Continue prednisone 20 mg daily with Bactrim DS MWF for pneumocystis prophylaxis. Assessment & Plan (03/18/2022 1:41 PM MAILING MACHINE ASSISTANT): Discussed alternative steroid sparing agents due to intolerance of methotrexate, including rituximab. Offered referral to tertiary care center for evaluation and potential treatment with this agent. Patient wished to think about this. Apparently his son-in-law also has sarcoidosis, and is currently on infusion therapy after failing prednisone and methotrexate. For now, continue prednisone 10 mg daily. At this dose, pneumocystis prophylaxis is unnecessary. Assessment & Plan (11/12/2021 5:15 PM CDT): We will wean patient off of prednisone: 20 mg daily for the remainder of this week, then decrease to 10 mg daily on 11/16/2021. He will continue on this dose for 1 week, then increase to 5 mg daily x1 week, then decrease to 2.5 mg daily x1 week, then stop. While this is occurring, he will start methotrexate 10 mg weekly. In an effort to reduce his nausea and headaches, we will increase folate supplementation to 3 mg daily. Bactrim will be discontinued due to interaction with methotrexate. Assessment & Plan (09/17/2021 2:37 PM CDT): He continues on 20 mg of prednisone daily with Bactrim for PCP prophylaxis. Assessment & Plan (06/17/2021 2:28 PM CDT): He continues on 20 mg of prednisone daily with Bactrim for PCP prophylaxis. Centrilobular emphysema 03/17/2020 Overview (12/28/2022): Emphysematous changes were noted on prior chest imaging. These are consequence of secondhand smoke exposure. He has an MS phenotype, and his AAT level was normal at 110 mg/dL on 11/01/2016. AAT augmentation therapy is not indicated. Encounters Date Type Department Care Team Description 11/27/2024 Telephone [facility] [address] [address] Kirill Keen MD Reschedule 10/10/2024 Telephone [facility] [address] [address] Patrica Preston RN 10/10/2024 Telephone [facility] [address] [id number] Patrica Preston RN from Last 3 Months Family History Medical History Relation Comments No Known Problems Father Asthma Mother Relation Status Comments Father Mother Social History Tobacco Use Types Packs/Day Years Used Date Smoking Tobacco: Never Smokeless Tobacco: Current Chew Alcohol Use Standard Drinks/Week Comments Never 0 (1 standard drink = 0.6 oz pur e alcohol) AUDIT-C Answer Date Recorded Q1: How often do you have a drink containing alcohol? Never 05/30/2024 Q2: How many drinks containi ng alcohol do you have on a typical day when you are drinking? Patient does not drink Q3: How often do you have si x or more drinks on one occasion? Never 05/30/2024 PHQ-2 Answer Date Recorded Patient Health Questionnaire-2 Score 0 05/30/2024 [facility] - Mental Health Answer Date Recorde d Little interest or pleasure in doing things Not at all 05/30/2024 Feeling down, depressed, or hopeless Not at all 05/30/2024 Feeling of Stress Not on file 05/30/2024 Sex and Gender Information Value Date Recorded Sex Assigned at Not on file Legal Sex Male 10:52 AM CDT Gender Identity Not on file Sexual Orientation Not on file Last Filed Vital Signs Vital Sign Reading Time Taken Comments Blood Pressure 115/75 05/30/2024 2:13 PM MAILING MACHINE ASSISTANT Pulse 84 05/30/2024 2:13 PM MAILING MACHINE ASSISTANT Temperature 36.7 C (98 F) 05/30/2024 2:13 PM MAILING MACHINE ASSISTANT Respiratory Rate 20 05/30/2024 2:13 PM MAILING MACHINE ASSISTANT Oxygen Saturation 97% 05/30/2024 2:13 PM MAILING MACHINE ASSISTANT Inhaled Oxygen Concentration - - Weight 71.7 kg (158 lb) 05/30/2024 2:13 PM MAILING MACHINE ASSISTANT Height 165.1 cm (5' 5 ) 05/30/2024 2:13 PM MAILING MACHINE ASSISTANT Body Mass Index 26.29 05/30/2024 2:13 PM MAILING MACHINE ASSISTANT Plan of Treatment Upcoming Encounters Date Type Department Care Team (Late st Contact Info) Description 12/11/2024 1:45 PM CDT Office Visit [facility] [address] [phone] Kirill Keen MD [address] [place] [address] Health Maintenance Due Date Last Done Comments CT Colonography 1962 Colonoscopy 1962 Colorectal Cancer Screening 1962 Creatinine Level 1962 Echocardiogram 1962 FIT-DNA 1962 FIT 1962 FOBT 1962 Lipid Panel 1962 Potassium Level 1962 Sigmoidoscopy 1962 MMR Vaccines (1 of 1 - Standard series) 1963 COVID-19 Vaccine (#1) 1967 DTaP,Tdap,and Td Vaccines (1 - Tdap) 1969 Varicella Vaccines (1 of 2 - 13+ 2-dose series) 1975 Diabetes Screening 01/18/1980 Social Drivers of Health (SDoH) 01/18/1980 Zoster Vaccines (1 of 2) 1981 Pneumococcal Vaccine: 50+ Years (3 of 3 - PCV) 09/16/2017 09/16/2016, 10/02/2015 Pneumococcal Vaccine (3 of 3 - PCV) 09/16/2017 09/16/2016, 10/02/2015 RSV Vaccines (1 - Risk 60-74 years 1-dose series) 2022 Medicare Initial AWV [id number] 02/02/2022 Influenza Vaccine (#1) 2024 Depression Screening 05/31/2025 05/30/2024 HIB Vaccines Aged Out No longer eligi ble based on patient's age to complete this topic HPV Vaccines Aged Out No longer eligi ble based on patient's age to complete this topic Hepatitis A Vaccines Aged Out No long er eligible based on patient's age to complete this topic Hepatitis B Vaccines Aged Out No long er eligible based on patient's age to complete this topic IPV Vaccines Aged Out No longer eligi ble based on patient's age to complete this topic Meningococcal B Vaccine Aged Out No l onger eligible based on patient's age to complete this topic Meningococcal Vaccine Aged Out No chrissy chintan eligible based on patient's age to complete this topic Rotavirus Vaccines Aged Out No longer eligible based on patient's age to complete this topic Insurance MEDICARE Care Teams Jacket Preparer Relationship Specialty Start Date End Date Refugio Bedoya [facility] [address] [place] [address] [address] [place], [place] [id number] PCP - General 11/17/20
--- OUTSIDE RECORDS SUMMARY | 2024-12-04 12:07 | XMS_ITS | Clinical Summary ---
Author Organization [facility] Building A Address [address] [facility] [place] [address] Care Team Providers Care Manufacturing Helper Name Role Phone Migue Leo MD Unavailable [phone] Wally Manuel MD Unavailable Luis Templeton MD Unavailable Natalia Alvarado NP Primary Care Provider [phone] Allergies Active Allergy Reactions Criticality Noted Date Comments Eucalyptus Other (See comments) Medium 09/13/2016 Other reaction(s): Unknown Ibuprofen Other (See comments) Low 10/31/2021 Kidney failure Menthol Other (See comments) Medium 09/13/2016 Other reaction(s): Unknown Ketorolac Other (See comments) Low 10/31/2021 Kidney falure Tramadol Other (See comments) Low 01/03/2018 Medications simvastatin (ZOCOR) 40 mg tablet Take 1 tablet (40 mg total) by mouth nightly Active fluticasone propion-salmetero L (ADVAIR HFA) 230-21 mcg/actuation inhaler Inhale 2 puffs 2 (two) times a day Rinse mouth with water after use. Do not swallow. Active albuterol HFA (PROVENTIL HFA,VENTOLIN HFA,PROAIR HFA) 90 mcg/actuation inhaler Inhale 2 puffs every 6 (six) hours as needed for wheezing Active imiquimod (ALDARA) 5 % cream APPLY TOPICALLY TO AFFECTED AREAS ON LEFT SIDE OF NECK TUESDAY THROUGH TUESDAY ONLY FOR 6 WEEKS 2 Active losartan (COZAAR) 50 mg tablet Take 1 tablet (50 mg total) by mouth every morning Active potassium bicarb-citric acid (K-LYTE) 10 mEq tablet, effervescent Take 1 tablet (10 mEq total) by mouth every morning Active potassium chloride ER 20 mEq CR tablet Take 1 tablet (20 mEq total) by mouth daily Active predniSONE (DELTASONE) 20 mg tablet Take 1 tablet (20 mg) by mouth every morning Active sulfamethoxazole- trimethoprim (BACTRIM DS) 800-160 mg per tablet TAKE 1 TABLET BY MOUTH ON TUESDAY, TUESDAY AND TUESDAY Active aspirin 81 mg enteric coated tablet Take 1 tablet (81 mg total) by mouth every morning Active furosemide (LASIX) 40 mg tablet Take 1 tablet (40 mg total) by mouth every morning Active metoprolol XL (TOPROL-XL) 25 mg extended release tablet Take 0.5 tablets (12.5 mg total) by mouth 2 (two) times a day Active Active Problems Problem Noted Date Diagnosed Date Kidney stone 04/25/2023 Nephrolithiasis 04/21/2023 Overview (04/21/2023): 04/21/23: NC. Nephrolithiasis. CT AP w/ (02/04/23) - mild distention of left upper urinary tract with 6 mm calculus within proximal left ureter; few other tiny nonobstructing renal calculi; right kidney unremarkable. Respiratory distress 11/02/2021 CAD (coronary artery disease) 11/02/2021 COPD (chronic obstructive pulmonary disease) 04/2021 Sarcoidosis 11/02/2021 HTN (hypertension) 11/02/2021 HLD (hyperlipidemia) 11/02/2021 Cellulitis of lower extremity 11/02/2021 Thoracic compression fracture 11/02/2021 MICHELLE (acute kidney injury) 11/01/2021 Acute midline low back pain without sciatica Encounters Date Type Department Care Team Description 09/21/2024 5:42 PM CDT - 09/21/2024 8:08 PM CDT Emergency [facility] Emergency Department [address] [place] [id number] Audrey Lundy MD Fall, initial encounter (Primary Dx); Contusion of knee, unspecified laterality, initial encounter; Back strain, initial encounter Discharge Disposition: Discharge to home or self care from Last 3 Months Surgical History Surgery Date Site/Laterality Comments CHOLECYSTECTOMY BACK SURGERY Medical History Medical History Date Comments HTN (hypertension) 11/02/2021 HLD (hyperlipidemia) 11/02/2021 Kidney stone 04/25/2023 Nephrolithiasis 04/21/2023 04/21/23: NC. Nep hrolithiasis. CT AP w/ (02/04/23) - mild distention of left upper urinary tract with 6 mm calculus within proximal left ureter; few other tiny nonobstructing renal calculi; right kidney unremarkable. MICHELLE (acute kidney injury) 11/01/2021 COPD (chronic obstructive pu lmonary disease) 11/02/2021 Sarcoidosis 11/02/2021 CAD (coronary artery disease) 11/02/2021 Social History Tobacco Use Types Packs/Day Years Used Date Smoking Tobacco: Never Social Connection and Isolation Panel Answer Date Recorded In a typical week, how many times do you talk on the phone with family, friends, or neighbors? More than three times a week 11/02/2021 How often do you get togethe r with friends or relatives? More than three times a week 11/02/2021 How often do you attend chur ch or spiritism services? 1 to 4 times per year 11/02/2021 Do you belong to any clubs o r organizations such as catholic groups, unions, fraternal or athletic groups, or school groups? No 11/02/2021 How often do you attend meet ings of the clubs or organizations you belong to? Never 11/02/2021 Are you , , di vorced, , never , or living with a partner? 11/02/2021 AUDIT-C Answer Date Recorded Q1: How often do you have a drink containing alcohol? Never 06/08/2023 Q2: How many drinks containi ng alcohol do you have on a typical day when you are drinking? Patient does not drink Frequency of Binge Drinking Not on file 09/2023 Overall Financial Resource Strain (CARDIA) Answe r Date Recorded How hard is it for you to pa y for the very basics like food, housing, medical care, and heating? Not hard at all 11/02/2021 PRAPARE - Transportation Answer Date Re corded In the past 12 months, has l ack of transportation kept you from medical appointments or from getting medications? No 04/2021 In the past 12 months, has l ack of transportation kept you from meetings, work, or from getting things needed for daily living? No 11/02/2021 Personal Safety Answer Date Recorded Have you ever been in or are you currently in a harmful physical or emotional relationship or is someone making you feel afraid or unsafe? Denies 09/21/2024 Sex and Gender Information Value Date Recorded Sex Assigned at Not on file Legal Sex Male 7:38 AM CDT Gender Identity Not on file Sexual Orientation Not on file Obstetrics History Last Filed Vital Signs Vital Sign Reading Time Taken Comments Blood Pressure 137/80 09/21/2024 8:05 PM CDT Pulse 73 09/21/2024 8:05 PM CDT Temperature 36.7 C (98.1 F) 09/21/2024 8:05 PM CDT Respiratory Rate 18 09/21/2024 8:05 PM CDT Oxygen Saturation 99% 09/21/2024 8:05 PM CDT Inhaled Oxygen Concentration - - Weight 74.4 kg (164 lb) 09/21/2024 4:49 PM CDT Height 167.6 cm (5' 6 ) 06/08/2023 6:30 AM WAREHOUSE STOCKER Body Mass Index 26.47 06/08/2023 6:30 AM WAREHOUSE STOCKER Plan of Treatment Health Maintenance Due Date Last Done Comments Colon Cancer Screening-Colonoscopy 1962 Depression Screening 1962 Hepatitis C Screening 1962 Prostate Cancer Screening-PSA 1962 DTaP/Tdap/Td Vaccine (1 - Tdap) 1973 Regular Well Visit/Exam 18-64 01/18/1980 Zoster Vaccine (1 of 2) 01/18/2012 Pneumococcal vaccine <65 (2 of 2 - PCV) 09/16/2017 09/16/2016 Influenza Vaccine (#1) 2024 Hepatitis B Screening Completed 12/10/2015 , 07/09/2015, 04/09/2015 Medical Devices Implanted Type Area Mail List Processor Device Identifier Shelf Expiration Date Model / Serial / Lot Bancha Vertaplex Hv [employer]ople[employer] Without Needle Delivery System Kit Bone [id number] - [id number] - [id number] Implanted:Qty: 1 on 11/06/2021 by Wally Manuel MD at [facility] [employer] 09/02/2024 [id number] / [id number] / [id number] Procedures Procedure Name Priority Date/Time Associated Diagnosis Comments POCT GLUCOSE DEVICE Routine 09/21/2024 4 :53 PM CDT from Last 3 Months Results * (ABNORMAL) POCT glucose (09/21/2024 4:53 PM CDT) [facility] Glucose, POC 240(H) 70 - 199 mg/dL Comment: Reference data Fasting Reference Interval 0 days to 3 Days 50-99 mg/dL 3 Days to Adult 70-99 mg/dL Current reference data last reviewed 2015 POC Performer [id number] YINA Mckeon [facility]) Glucose comment 1 RN/MD Notified [facility] Blood 09/21/2024 4:53 PM CDT 09/21/2024 4:53 PM CDT us Notinfile Unknown LAB POCT ORDERABLES - DEVICE F inal Result [facility] ([facility] [address] [place] [address] from Last 3 Months Insurance [place] [employer] MEDICARE MEDICARE [facility] MEDICARE [place] [employer] Advance Directives For more information, please contact: [phone] * Full Code (Latest Code Status on File) Date Activated Date Inactivated Comments 11/01/2021 12:13 PM 11/06/2021 8:41 PM Care Teams Manufacturing Helper Relationship Specialty Start Date End Date Natalia Alvarado NP [address] [facility] [address] [place] [address] PCP - General Nurse Practitioner 09/21/24 Migue Leo MD [address] [place] [address] Consulting Physician Pulmonary Disease 11/06/21 Wally Manuel MD [address] [place] [address] Anesthesiologist Anesthesiology 11/06/21 Luis Templeton MD [address] [facility] [place] [address] Consulting Physician Urology 06/08/23
--- OUTSIDE RECORDS SUMMARY | 2024-12-04 12:07 | XMS_ITS | Encounter Summary ---
Author Organization [facility] Address [address] [place] [phone] Phone Care Team Providers Care Blueprint Engineer Name Role Phone Refugio Bedoya Primary Care Provider [phone] Reason for Visit * Reason Comments Med Refill Encounter Details Date Type Department Care Team (Late st Contact Info) Description 10/02/2022 Refill [facility] [address] [place] [address] [phone] Kirill Keen MD [address] [place] [address] Sarcoidosis Social History Tobacco Use Types Packs/Day Years Used Date Smoking Tobacco: Never Smokeless Tobacco: Current Chew Alcohol Use Standard Drinks/Week Comments Never 0 (1 standard drink = 0.6 oz pur e alcohol) AUDIT-C Answer Date Recorded Q1: How often do you have a drink containing alc ohol? Never 03/17/2020 Average Number of Drinks Not on file 020 Frequency of Binge Drinking Not on file 03/04 PHQ-2 Answer Date Recorded Patient Health Questionnaire-2 Score 0 08/31/2022 Sex and Gender Information Value Date Recorded Sex Assigned at Not on file Legal Sex Male 10:52 AM CDT Gender Identity Not on file Sexual Orientation Not on file documented as of this encounter Miscellaneous Notes * Telephone Encounter - Kirill Keen MD - 10/06/2022 8:34 AM CDT Prednisone refill sent to [facility]. * Telephone Encounter - Diana Carmichael LPN - 10/04/2022 8:29 AM CDT Please advise documented in this encounter Plan of Treatment Upcoming Encounters Date Type Department Care Team (Late st Contact Info) Description 12/11/2024 1:45 PM CDT Office Visit [facility] [address] [place] [address] [phone] Kirill Keen MD [facility] [address] [place], [place] [phone] documented as of this encounter Visit Diagnoses Diagnosis Sarcoidosis documented in this encounter Care Teams Blueprint Engineer Relationship Specialty Start Date End Date Refugio Bedoya [facility] Medicine [address] [place] [address] [address] [place], [place] [address] PCP - General 11/17/20 documented as of this encounter
--- OUTSIDE RECORDS SUMMARY | 2024-12-04 12:07 | XMS_ITS | Encounter Summary ---
Author Organization [facility] Address [address] [place] [phone] Phone Care Team Providers Care Finisher Brush Name Role Phone Refugio Bedoya Primary Care Provider [phone] Reason for Visit * Reason Onset Date Comments Reschedule 11/27/2024 Encounter Details Date Type Department Care Team (Late st Contact Info) Description 11/27/2024 Telephone [facility] [address] [place] [address] [phone] Kirill Keen MD [address] [place] [address] Reschedule Social History Tobacco Use Types Packs/Day Years [...] Recorded Patient Health Questionnaire-2 Score 0 05/30/2024 [facility] - Mental Health Answer Date Recorde [...] encounter Miscellaneous Notes * Telephone Encounter - Josué Javiergabino - 11/27/2024 9:59 AM CDT Needs to reschedule./Fell and hurt his back documented in this encounter Plan of Treatment Upcoming Encounters Date Type Department Care Team (Late st Contact Info) Description 12/11/2024 1:45 PM CDT Office Visit [facility] [address] [place] [address] [phone] Kirill Keen MD [address] [place], [place] [phone] documented as of this encounter Visit Diagnoses Not on filedocumented in this encounter Care Teams Finisher Brush Relationship Specialty Start Date End Date Refugio Bedoya [facility] [address] [place] [address] [address] [place], [place] [phone] PCP - General 11/17/20 documented as of this encounter
--- OUTSIDE RECORDS SUMMARY | 2024-12-04 12:07 | XMS_ITS | Encounter Summary ---
Author Organization [facility] Address [address] [place] [address] Care Team Providers Care Dirt Bike Racer Name Role Phone Unavailable Primary Care Provider Unavailabl e Reason for Visit * Reason Comments Med Refill Encounter Details Date Type Department Care Team (Late st Contact Info) Description 11/20/2024 Refill [facility] Ophthalmology [address] [place] [phone] Dianna Overton MD [address] [place] [phone] Social History Tobacco Use Types Packs/Day Years Used Date Smoking Tobacco: Never Passive Smoke Exposure: Never Smokeless Tobacco: Current Chew Comments:Quit smoking: for 4 0 years Alcohol Use Standard Drinks/Week Comments No 0 (1 standard drink = 0.6 oz pur e alcohol) Feeling Safe Answer Date Recorded Are you in a relationship wi th someone who hurts you emotionally and/or physically? No 10/14/2024 Food Insecurity Answer Date Recorded Patient needs follow up regardin 08/02/2024 Transportation Needs Answer Date Record ed Patient needs follow up regardin 08/02/2024 Housing Stability Answer Date Recorded Social/Environmental Concerns No concerns Utility Needs Answer Date Recorded Patient needs follow up regardin 08/02/2024 Sex and Gender Information Value Date Recorded Sex Assigned at Not on file Legal Sex Male 7:21 AM CONTRACT RECRUITER Gender Identity Not on file Sexual Orientation Not on file documented as of this encounter Miscellaneous Notes * Telephone Encounter - [employer]ish[employer] neg[employer]te COA - 11/20/2024 11:33 AM CDT Pt needs to contact Dr. Osborne as was referred for IOP management. documented in this encounter Plan of Treatment Upcoming Encounters Date Type Department Care Team (Late st Contact Info) Description 12/07/2024 9:20 AM CDT Office Visit [facility] Ophthalmology [place] [address] [place] [address] Dianna Overton MD [address] [place] [address] 01/11/2025 10:45 AM CDT Appointment [facility] Laboratory Services [address] [facility] 2 [place] [address] Jose Hughes MD [address] [address] 01/18/2025 1:20 PM CDT Office Visit [facility] Hemat[facility] [place] [address] [facility] 2 [place] [address] Jose Hughes MD [address] [address] documented as of this encounter Visit Diagnoses Not on filedocumented in this encounter
--- OUTSIDE RECORDS SUMMARY | 2024-12-04 12:07 | XMS_ITS ---
Author Organization [facility] Address [address] 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 Patient endorses unrefreshing sleep and snoring. He scored a 7 on the Vassar Sleepiness Scale. Sleep study was ordered at his November 2021 visit, but multiple appointments were canceled by the patient. HLD (hyperlipidemia) 11/02/2021 HTN (hypertension) 11/02/2021 Hx of basal cell carcinoma ( BCC) of left post-auricular sulcus 07/07/2021 Allergic rhinitis due to animal hair and dander 06/17/2021 Overview (07/07/2021): Region 8 allergen panel was positive for cat dander on 11/01/2016, and so serum IgE was 86. Last Assessment & Plan: Recommend Rosanne, Claritin, or Zyrtec for symptomatic relief. Centrilobular emphysema 03/17/2020 Overview (07/07/2021): Emphysematous changes were noted on prior chest imaging. These are consequence of secondhand smoke exposure. He has an MS phenotype, and his AAT level is normal at 110 mg/dL on 11/01/2016. Thus, AAT augmentation therapy is not required. Sarcoidosis 01/08/2017 Overview (07/07/2021): Per Dr Kirill Keen. [phone]. . [facility], [address] [place] [address]. Status post lung biopsy Per Dr Kirill Keen. [phone]. . [facility], [address] [place] [address]. Status post lung biopsy Patient suffered multiple severe exacerbations from May [...] chronic prednisone was leading to such. He was switched to methotrexate, but proved intolerant of this medication due to nausea and headaches. Last Assessment & Plan: He continues on 20 mg of prednisone daily with Bactrim for PCP prophylaxis. History of gout 01/08/2017 Chronic obstructive pulmonary disease 09/28/2016 Overview (07/07/2021): Referral in place to dent remover in [place]. FVC 2.47-56% predicted, FEV1 0.87-33% predicted. TLC 7.53-118%, vital capacity 3.01-68%, DLCO 18.73 68%. Consistent with severe COPD Pulmonolgist Queta SAMANIEGO at [facility] feels like it is Sarcoidosis. [facility] lymph node biopsy by Bernardino MAURICIO December 03, [address] Joshua Leo. No granulomas were noted, negative for malignancy. TERRA level normal at 11. Due to ongoing suspicion about sarcoidosis he was started on prednisone 40 mg daily for 3 months with Bactrim DS for PCP prophylaxis. This is the plan per JOANNE Espinoza - pulmonary [address], [address] [place] [phone]. [phone], fax [phone] to dent remover in [place]. FVC 2.47-56% predicted, FEV1 0.87- 33% predicted. TLC 7.53-118%, vital capacity 3.01-68%, DLCO 18.73 68%. Consistent with severe COPD Pulmonollaquita Birch MD at [facility] like it is Sarcoidosis. [facility] lymph node biopsy by Bernardino MAURICIO December [birth year], [address] Joshua Leo. No granulomas were noted, negative for malignancy. TERRA level normal at 11. Due to ongoing suspicion about sarcoidosis he was started on prednisone 40 mg daily for 3 months with Bactrim DS for PCP prophylaxis. This is the plan per JOANNE Espinoza - pulmonary [address], [address] [place] [phone]. [phone], fax [phone] History of acute renal failure September 2016 017 Hx of acute respiratory failure with hypoxemia J une 2017 09/28/2016 CAD, s/p stent x 2 (2015) 09/28/2016 Overview (07/31/2020): Cardiac stents X 04 Aug 2015-continues on Plavix. Cariologist Dr Yu in [place] History of exposure to tuberculosis 09/28/2016 Overview (07/31/2020): QUANTIFERON TB GOLD is negative 2016 Severe sepsis without septic shock 09/12/2016 Current Treatment and Therapy Plans No current plan information found. Past Treatment and Therapy Plans No past plan information found. Lifetime Dose Tracking * Chemical Lifetime Dose Automatic Entry Manual Entr y Effective Dose 53.1 mSv 41 mSv 12.1 mSv Total DLP 3,893.1 DLP 3,061.1 DLP 832 DLP CTDIvol Max 185.1 mGy 146.9 mGy 38.2 mGy CTDIvol Min 120.2 mGy 117.2 mGy 3 mGy Fluoro 17.9 Minutes 0 Minutes 17.9 Minutes Air Kerma 863 mGy 0 mGy 863 mGy Dose Area Product (DAP) 50.86 Gy-cm2 0 Gy-cm2 50.8 6 Gy-cm2 Resolved Problems Problem Noted Date Diagnosed Date Resolved Date Shortness of breath 09/28/2016 10/02/19 17 Overview (07/30/2020): Echo September 2016 and remarkable Today's chest x-ray unremarkable with the exception of COPD Nonsmoker 09/28/2016 10/01/2016 Acute respiratory failure with hypoxia 09/12/2016 09/23/2016 Acute renal failure with tubular necrosis 09/12/2016 09/23/2016 Allergic reaction caused by a drug 10/02/2012 09/23/2016 S/P laparoscopic cholecystectomy 10/02/2012 09/23/2016 Acute on chronic cholecystitis 09/27/2012 09/23/2016
--- OUTSIDE RECORDS SUMMARY | 2024-12-04 12:07 | XMS_ITS | Clinical Summary ---
Author Organization [facility] Address [address] King: [place] [address] Care Team Providers Care Proof Technician Helper Name Role Phone Unavailable Primary Care Provider Unavailabl e Allergies Active Allergy Reactions Criticality Noted Date Comments Eucalyptus Renal Dysfunctions Medium 09/13/2016 Ibuprofen Renal Dysfunctions Medium 09/13/2016 Ketorolac Tromethamine Renal Dysfunctions High 09/30 Menthol Renal Dysfunctions Medium 09/13/2016 Tramadol Other (See Comments) 01/03/2018 Medications furosemide (LASIX) 20 mg tablet Take 20 mg by mouth daily. 08/07/19 19 Active simvastatin (ZOCOR) 40 mg tablet Take 40 mg by mouth daily with supper. 05/17/19 20 Active predniSONE (DELTASONE) 20 mg tablet Take 20 mg by mouth daily. 06/12/19 22 Active metoprolol tartrate (LOPRESSOR) 25 mg tablet Take 12.5 mg by mouth 2 times daily. 09/14/19 17 Active nebulizer Length of need 99 monthsNebulizer with compressor, Kit: Permanent Nebulizer Kit, 1 per 6 months, filters , areosol mask: No. Name of Medication: combivent. 1 Each 3 09/17/19 17 Active albuterol sulfate 90 mcg/Actuation inhaler Take 2 Puffs by inhalation see administration instructions PRN breathing difficulty . 09/14/19 17 Active sulfamethoxazole -trimethoprim (BACTRIM DS) 800-160 mg tabletIndication s:Chronic obstructive pulmonary disease, unspecified COPD type (CMS/HCC) Take 1 Tablet by mouth every other day. Takes Tuesday, Tue, Tuesday 1 Tablet 02/10/20 23 Active losartan (COZAAR) 50 mg tablet Take 50 mg by mouth daily. Active apixaban (ELIQUIS) 5 mg tablet Take 5 mg by mouth 2 times daily. Active empagliflozin (JARDIANCE ORAL) Take 1 Tablet by mouth daily. Active nitroglycerin (NITROSTAT) 0.4 mg Tablet, Sublingual Place 0.4 mg under tongue every 5 minutes as needed for Chest Pain. Active aspirin (ECOTRIN EC) 81 mg Tablet, Delayed Release (E.C.) Take 81 mg by mouth. Active brinzolamide-eleazar monidine (SIMBRINZA) 1-0.2 % Drops, Suspension Administer 1 Drop in right eye 2 times daily. 10 mL 08/09/19 25 Active dorzolamide-chi loL (COSOPT) 22.3-6.8 mg/mL solution Administer 1 Drop in right eye 2 times daily. 10 mL 08/14/19 25 Active busPIRone (BUSPAR) 10 mg tablet Take 10 mg by mouth 3 times daily as needed for Anxiety. Activ e levalbuterol (XOPENEX) 1.25 mg/0.5 mL Solution for Nebulization Take 0.5 mL (1.25 mg) by inhalation every 8 hours as needed for Shortness of Breath. 15 mL 09/16/19 25 Active ipratropium bromide (ATROVENT) 0.02 % Solution Take 2.5 mL (0.5 mg) by inhalation every 8 hours as needed for Shortness of Breath. 75 mL 09/16/19 25 Active cyclobenzaprine (FLEXERIL) 10 mg tablet Take 1 Tablet (10 mg) by mouth 3 times daily as needed for Spasm or Pain. To be dispersed here 4 Tablet 10/15/19 25 Active Active Problems Problem Noted Date Diagnosed [...] are noted during his recent admission to [facility]. Patient endorses unrefreshing sleep and snoring. He scored a 7 on the [place] Sleepiness Scale. Sleep study was ordered at [...] 01/08/2017 Overview (07/07/2021): Per Dr Kirill Keen. [phone]. . [facility], [address] [place] [address]. Status post lung biopsy Per Dr Kirill Keen. [phone]. . [facility], [address] [place] [address]. 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 FVC 2.47-56% predicted, FEV1 0.87-33% predicted. TLC 7.53-118%, vital capacity 3.01-68%, DLCO 18.73 68%. Consistent with severe COPD Pulmonolgist Queta SAMANIEGO at [place] - feels like it is Sarcoidosis. The Ar[place] lymph node biopsy by Bernardino MAURICIO December 03, [address] Joshua Leo. No granulomas were noted, negative for malignancy. TERRA level normal at 11. Due to ongoing suspicion about sarcoidosis he was started on prednisone 40 mg daily for 3 months with Bactrim DS for PCP prophylaxis. This is the plan per , [facility], [address] [place] [address]. 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 FVC 2.47-56% predicted, FEV1 0.87- 33% predicted. TLC 7.53-118%, vital capacity 3.01-68%, DLCO 18.73 68%. Consistent with severe COPD Pulmonolgist Queta SAMANIEGO at [place] - feels like it is Sarcoidosis. The [place]in lymph node biopsy by Bernardino MAURICIO December 03, [address] Joshua Leo. No granulomas were noted, negative for malignancy. TERRA level normal at 11. Due to ongoing suspicion about sarcoidosis he was started on prednisone 40 mg daily for 3 months with Bactrim DS for PCP prophylaxis. This is the plan per , [facility], [address] [place] [address]. [phone], fax [phone] History of acute renal failure September 2016 017 Hx of acute respiratory failure with hypoxemia J 201609/28/2016 CAD, s/p stent x 2 (2015) 09/28/2016 Overview (07/31/2020): Cardiac stents X 04 Aug 2015-continues on Plavix. Cariologist Dr Yu in [place] History of exposure to tuberculosis 09/28/2016 Overview (07/31/2020): QUANTIFERON TB GOLD is negative 2016 Severe sepsis without septic shock 09/12/2016 Resolved Problems Problem Noted Date Diagnosed Date [...] 09/23/2016 Acute on chronic cholecystitis 09/27/2012 09/23/2016 Encounters Date Type Department Care Team Description 11/20/2024 [facility] [address] [place] [address] Dianna Overton MD 10/14/2024 8:20 PM CDT - 10/14/2024 9:38 PM CDT [address] [place] [address] Chucho Yu, Acute on chronic low back pain (Primary Dx) Discharge Disposition: Home or Self Care 10/06/2024 9:45 PM CDT - 10/06/2024 10:49 PM CDT [facility] [address] [facility] [address] [place] [address] Carli Meng MD Strain of lumbar region, subsequent encounter (Primary Dx); Muscle spasm of back Discharge Disposition: Home or Self Care 10/06/2024 Travel 09/15/2024 2:49 PM CDT - 09/15/2024 6:[address] PM [address]T [address] [address] Isabella Monroe MD COPD with exacerbation ([facility]) (Primary Dx); History of sarcoidosis Discharge Disposition: Home or Self Care 09/15/2024 Travel 09/11/2024 External Device Data STL ABSTRACTION Provider, Abstract 09/11/2024 External Device Data STL ABSTRACTION Provider, Abstract 09/11/2024 External Device Data STL ABSTRACTION Provider, Abstract 09/09/2024 2:03 AM CDT - 09/09/2024 3:48 AM CDT [address] [place] [address] Fern Caba MD Shortness of breath (Primary Dx); Hx of sarcoidosis Discharge Disposition: Home or Self Care 09/09/2024 Travel from Last 3 Months Immunizations Immunization Administration Dates Next Due (PNEUMOVAX 23)(50 YRS UP) PN EUMOCOCCAL POLYSACCHARIDE (PPV23) 0.5 ML, IM 09/16/2016 Family History Medical History Relation Name Comments Healthy Brother 1 Heart Disease Brother 2 Healthy Daughter Stroke Father Respiratory Disease Mother Other Sister 1 Lupus Other Sister 2 Aneurysm Healthy Son 1 Healthy Son 2 Healthy Son 3 Cancer Neg Hx Diabetes Neg Hx Relation Name Status Comments Brother 1 Alive Brother 2 Alive Daughter Alive Father (Age 80) Stroke Mother (Age 74) COPD Sister 1 Sister 2 Sister 3 Alive Son 1 Alive Son 2 Alive Son 3 Alive Social History Tobacco Use Types Packs/Day Years Used Date Smoking Tobacco: Never Passive Smoke Exposure: Never Smokeless Tobacco: Current Chew Tobacco Cessation:Ready to Q uit: No; Counseling Given: Yes Comments:Quit smoking: for 40 years Alcohol Use Standard Drinks/Week Comments No [...] on file Legal Sex Male 7:21 AM [employer] Gender Identity Not on file Sexual Orientation Not on file Last Filed Vital Signs Vital Sign Reading Time Taken Comments Blood Pressure 142/82 10/14/2024 9:30 PM CDT Pulse 64 10/14/2024 9:30 PM CDT Temperature 36.2 C (97.1 F) 10/14/2024 8:23 PM CDT Respiratory Rate 15 10/14/2024 9:30 PM CDT Oxygen Saturation 97% 10/14/2024 9:30 PM CDT Inhaled Oxygen Concentration - - Weight 72.6 kg (160 lb) 10/14/2024 8:23 PM CDT Height 162.6 cm (5' 4 ) 10/14/2024 8:23 PM CDT Body Mass Index 27.46 10/14/2024 8:23 PM CDT Plan of Treatment Upcoming Encounters Date Type Department Care Team (Late st Contact Info) Description 12/07/2024 9:20 AM CDT Office Visit [facility] [place] [address] [address] Dianna Overton MD [address] [place] [address] 01/11/2025 10:45 AM CDT Appointment [facility] [address] [address] Jose Hughes MD [address] [address] 01/18/2025 1:20 PM CDT Office Visit [facility] [place] [address] [address] Jose Hughes MD [address] [address] Health Maintenance Due Date Last Done Comments DTAP/TDAP/TD VACCINES (1 - Tdap) 1981 COLORECTAL SCREENING 2007 Colorectal Cancer Screening 2007 FIT-DNA Q 3 years 2007 FIT/FOBT Q 1 year 2007 Flex Sig/CT Colonography Q 5 years 2007 ZOSTER VACCINE (1 of 2) 01/18/2012 RSV VACCINE (60+ or ) (1 - Risk 60-74 years 1-dose series) 2022 INFLUENZA VACCINE (#1) 2024 Pre-Diabetes and Diabetes Screening 05/11/202705/11 Medical Devices Implanted Type Area Rubber Engraver Device Identifier Shelf Expiration Date Model / Serial / Lot Stent Percuflex+ 4.8fr 24cm [id number] - [id number] Implanted:Qty: 1 on 02/06/2023 by Lencho Acosta MD at [facility] Stent Left: Ureter [employer] [id number] 06/10/2025 [id number] 20 / [id number] Explanted Type Area Rubber Engraver Device Identifier Shelf Expiration Date Model / Serial / Lot Stent Contour [id number] - [id number] Explanted:Qty: 1 on 02/06/2023 by Lencho Acosta MD at [facility] Stent Left: Ureter [employer] [id number] 09/14/2025 [id number] 20 / / [id number] Procedures Procedure Name Priority Date/Time Associated Diagnosis Comments URINALYSIS W/REFLEX MICROSCOPIC Stat 10/06/2024 9:57 PM CDT TROPONIN 2 HR, 5TH GEN Timed Study 09/15/2024 4:58 PM CDT XR CHEST PA OR AP 1 VW Stat 09/15/2024 3:37 PM CDT TROPONIN BASELINE, 5TH GEN Stat 09/15/2024 2:59 PM CDT MAGNESIUM LEVEL Stat 09/15/2024 2:59 PM CDT C-REACTIVE PROTEIN Stat 09/15/2024 2: 59 PM CDT BRAIN NATRIURETIC PEPTIDE, BNP OR PROBNP Stat 09/15/2024 2:59 PM CDT COMPREHENSIVE METABOLIC PANEL Stat 09/15/2024 2:59 PM CDT SEDIMENTATION RATE Stat 09/15/2024 2: 59 PM CDT D-DIMER Stat 09/15/2024 2:59 PM CDT PTT Stat 09/15/2024 2:59 PM CDT PROTIME-INR Stat 09/15/2024 2:59 PM CDT CBC WITH DIFFERENTIAL Stat 09/15/2024 2:59 PM CDT EKG 12-LEAD Stat 09/15/2024 9:18 AM CDT XR CHEST PA OR AP 1 VW Stat 09/09/2024 3:11 AM CDT BRAIN NATRIURETIC PEPTIDE, BNP OR PROBNP Stat 09/09/2024 2:58 AM CDT COMPREHENSIVE METABOLIC PANEL Stat 09/09/2024 2:58 AM CDT CBC WITH DIFFERENTIAL Stat 09/09/2024 2:58 AM CDT HEMOGLOBIN A1C Routine 05/11/2024 2:55 AM AUTO HIKER from Last 3 Months or Most Recently Relevant to Health Maintenance Results * (ABNORMAL) URINALYSIS WITH REFLEX MICROSCOPIC (10/06/2024 9:57 PM CDT) COLOR UA Yellow Pale to Dark Yellow 10/06/2024 10:05 PM [facility] CLARITY UA Clear Clear 10/06/2024 10:05 PM [facility] SPECIFIC GRAVITY UA 1.015 1.003 - 1.035 10/06/2024 10:05 PM [facility] PH UA 5.5 5.0 - 8.0 10/06/2024 10:05 PM [facility] LEUKOCYTE ESTERASE UA Negative Negative 10/06/2024 10:05 PM [facility] NITRITE UA Negative Negative 10/06/2024 10:05 PM [facility] PROTEIN UA Negative Negative 10/06/2024 10:05 PM [facility] GLUCOSE UA 2+(A) Negative 10/06/2024 10:05 PM [facility] KETONES UA Trace(A) Negative 10/06/2024 10:05 PM [facility] UROBILINOGEN UA 0.2 <2.0 mg/dL 10:05 PM [facility] BILIRUBIN UA Negative Negative 10/06/2024 10:05 PM [facility] BLOOD UA Negative Negative 10/06/2024 10:05 PM [facility] Urine URINE SPECIMEN OBTAINED BY CLEAN CATCH PROCEDURE / Unknown Collection / Unknown 10/06/2024 9:57 PM CDT 10/06/2024 10:01 PM CDT us Carli Meng MD URINE ORDERABLES Final Res ult Performing Organization Address City/[facility]/ZIP Co de Phone Number [facility] CLIA # [id number] [address] [place] [address] * (ABNORMAL) TROPONIN 2 HR, 5TH GEN (09/15/2024 4:58 PM CDT) TROPONIN T, 2 HR 5TH GEN 65(H) <=15 ng/L 09/15/2024 5:42 PM CDT [facility] DELTA 2HR TROPONIN T -11(LL) See Interp. 09/15/2024 5:42 PM CDT [facility] Blood Venipuncture / Unknown 09/15/2024 4:58 PM CDT 09/15/2024 5:06 PM CDT Narrative [facility] - 09/15/2024 5:42 PM CDT Troponin elevated. Delta significant change. us Isabella Monroe MD CHEMISTRY ORDERABLES Final Resu lt Performing Organization Address City/[facility]/ZIP [facility] de Phone Number [id number] [address] [place] [address] * XR CHEST PA OR AP 1 VW (09/15/2024 3:37 PM CDT) Only the most recent of2 resultswithin the time period is included. Anatomical Region Laterality Modality Chest Computed Radiogr aphy 09/15/2024 3:37 PM CDT Impressions 09/15/2024 5:36 PM CDT IMPRESSION: See below. Exam: XR CHEST PA OR AP 1 VW Date/Time of Exam: 09/15/2024 3:37 PM Reason For Exam: Shortness of Breath SOB. Diagnosis: See Reason for Exam. Findings: Comparison: 09/09/2024 Heart size is normal. There is increased density in the subpleural right mid upper lung zone likely related to prominent extrapleural fat accentuated by rotation and correlation with previous CT. Chronic calcified granuloma right upper lung. No airspace consolidation, pleural effusion or pneumothorax. Clips overlie the right axillary region. IMPRESSION: 1. No acute findings. Narrative Procedure Note Leighton Rivero MD - 09/15/2024 IMPRESSION: See below. Exam: XR CHEST PA OR AP 1 VW Date/Time of Exam: 09/15/2024 3:37 PM Reason For Exam: Shortness of Breath SOB. Diagnosis: See Reason for Exam. Findings: Comparison: 09/09/2024 Heart size is normal. There is increased density in the subpleural right mid upper lung zone likely related to prominent extrapleural fat accentuated by rotation and correlation with previous CT. Chronic calcified granuloma right upper lung. No airspace consolidation, pleural effusion or pneumothorax. Clips overlie the right axillary region. IMPRESSION: 1. No acute findings. us Isabella Monroe MD DIAGNOSTIC IMAGING ORDERABLES F inal Result * (ABNORMAL) TROPONIN BASELINE, 5TH GEN (09/15/2024 2:59 PM CDT) TROPONIN T, BASELINE 5TH GEN 76(H) <=15 ng/L 09/15/2024 4:02 PM CDT [facility] Blood Venipuncture / Unknown 09/15/2024 2:59 PM CDT 09/15/2024 3:08 PM CDT Narrative [facility] - 09/15/2024 4:02 PM CDT Troponin elevated. us Isabella Monroe MD CHEMISTRY ORDERABLES Final Resu lt [facility] CLIA # [id number] [address] [place] [phone] * (ABNORMAL) CBC WITH DIFFERENTIAL (09/15/2024 2:59 PM CDT) Only the most recent of2 resultswithin the time period is included. WBC 22.2(H) 4.2 - 9.1 K/uL 09/15/2024 3:19 PM [facility] RBC 4.52(L) 4.63 - 6.08 M/uL 09/15/2024 3:19 PM [facility] HEMOGLOBIN 14.1 13.7 - 17.5 g/dL 09/15/2024 3:19 PM [facility] HEMATOCRIT 43.7 40.1 - 51.0 % 09/15/2024 3:19 PM [facility] MCV 96.7(H) 79.0 - 92.2 fL 09/15/2024 3:19 PM [facility] MCH 31.2 25.7 - 32.2 pg 09/15/2024 3:19 PM [facility] MCHC 32.3 32.3 - 36.5 g/dL 09/15/2024 3:19 PM [facility] RDW 16.1(H) 11.0 - 14.5 % 09/15/2024 3:19 PM [facility] RDW-STDEV 57.3(H) 36.9 - 56.9 fL 09/15/2024 3:19 PM [facility] PLATELETS 293 130 - 400 K/uL 09/15/2024 3:19 PM [facility] MPV 9.6(L) 10.0 - 14.8 fL 09/15/2024 3:19 PM [facility] NEUTROPHILS 85(H) 34 - 68 % 09/15/2024 3:19 PM [facility] LYMPHOCYTES 6(L) 22 - 53 % 09/15/2024 3:19 PM [facility] MONOCYTES 6 5 - 12 % 09/15/2024 3:19 PM [facility] EOSINOPHILS 0(L) 1 - 7 % 09/15/2024 3:19 PM [facility] BASOPHILS 0 0 - 1 % 09/15/2024 3:19 PM [facility] IMMATURE GRANULOCYTES 4 % 09/15/2024 3:19 PM CDT [facility] NEUTROPHIL ABSOLUTE 18.90(H) 1.78 - 5.38 K/uL 09/15/2024 3:19 PM CDT [facility] LYMPHOCYTE ABSOLUTE 1.25 1.20 - 3.40 K/uL 09/15/2024 3:19 PM CDT [facility] MONOCYTE ABSOLUTE 1.24(H) 0.30 - 0.82 K/uL 09/15/2024 3:19 PM CDT [facility] EOSINOPHIL ABSOLUTE 0.03(L) 0.04 - 0.54 K/uL 09/15/2024 3:19 PM CDT [facility] BASOPHILS ABSOLUTE 0.05 0.01 - 0.08 K/uL 09/15/2024 3:19 PM CDT [facility] IMMATURE GRANULOCYTES ABSOLUTE 0.77 K/uL 09/15/2024 3:19 PM CDT [facility] Blood Venipuncture / Unknown 09/15/2024 2:59 PM CDT 09/15/2024 3:08 PM CDT us Isabella Monroe MD HEMATOLOGY ORDERABLES Final Res ult Performing Organization Address City/[facility]/ZIP Co de Phone Number [facility] CLIA # [id number] [address] [place] [address] * (ABNORMAL) PTT (09/15/2024 2:59 PM CDT) PTT 20.7(L) 25.8 - 34.0 seconds 09/15/2024 4:12 PM CDT [facility] Blood Venipuncture / Unknown 09/15/2024 2:59 PM CDT 09/15/2024 3:08 PM CDT us Isabella Monroe MD HEMATOLOGY ORDERABLES Final Res ult Performing Organization Address City/[facility]/ZIP Co de Phone Number [facility] CLIA # [id number] [address] [place], [place] [phone] * SEDIMENTATION RATE (09/15/2024 2:59 PM CDT) Pathologist [facility] ESR (SEDIMENTATION RATE) 5 0 - 20 mm/Hr 09/15/2024 3:26 PM CDT [facility] Blood Venipuncture / Unknown 09/15/2024 2:59 PM CDT 09/15/2024 3:08 PM CDT Narrative [facility] - 09/15/2024 3:26 PM CDT Tube Lot: #[id number] Exp Date: 01/01/2026 SR 0125-1 EXP. 10/06/24 SR 0125-2 EXP. 10/06/24 Isabella Monroe MD HEMATOLOGY ORDERABLES Final Res ult Performing Organization Address City/[facility]/ZIP Co de Phone Number [facility] CLIA # [id number] [address] [place] [phone] * PROTIME-INR (09/15/2024 2:59 PM CDT) Pathologist [facility] PROTIME 13.0 11.9 - 14.6 Seconds 09/15/2024 4:12 PM CDT [facility] INR 1.0 0.9 - 1.1 09/15/2024 4:12 PM CDT [facility] Blood Venipuncture / Unknown 09/15/2024 2:59 PM CDT 09/15/2024 3:08 PM CDT us Isabella Monroe MD HEMATOLOGY ORDERABLES Final Res ult [facility] CLIA # [id number] [address] [place] [address] * D-DIMER (09/15/2024 2:59 PM CDT) Pathologist [facility] D-DIMER QUANT <0.15 <0.50 ug/mL FEU 09/15/2024 4:02 PM CDT [facility] Blood Venipuncture / Unknown 09/15/2024 2:59 PM CDT 09/15/2024 3:08 PM CDT Narrative [facility] - 09/15/2024 4:02 PM CDT D-Dimer assay cutoff value for exclusion of DVT and/or PE is <0.50 ug/mL FEU. As D-Dimer levels increase naturally with age, age stratification for patients over 50 is potentially more appropriate in determining whether a patient should undergo further evaluation for DVT and/or PE than a general cutoff of 0.50 ug/mL FEU. Clinical consideration is recommended. Age Stratified Cutoff Values: 50-60 years: 0.50-0.60 ug/mL FEU 61-70 years: 0.61-0.70 ug/mL FEU 71-80 years: 0.71-0.80 ug/mL FEU us Isabella Monroe MD HEMATOLOGY ORDERABLES Final Res ult Performing Organization Address City/[facility] Co de Phone Number [facility] CLIA # [id number] [address] [place] [address] * C-REACTIVE PROTEIN (09/15/2024 2:59 PM CDT) [facility] CRP <3.0 <5.0 mg/L 09/15/2024 4:0 2 PM CDT [facility] Blood Venipuncture / Unknown 09/15/2024 2:59 PM CDT 09/15/2024 3:08 PM CDT us Isabella Monroe MD CHEMISTRY ORDERABLES Final Resu lt Performing Organization Address [facility] Co de Phone Number [facility] CLIA # [id number] [address] [place] [phone] * BRAIN NATRIURETIC PEPTIDE, BNP OR PROBNP (09/15/2024 2:59 PM CDT) Only the most recent of2 resultswithin the time period is included. [facility] PROBNP, N TERMINAL <36 0 - 125 pg/mL 09/15/2024 4:02 PM CDT [facility] Comment: INTERPRETIVE COMMENT based on diagnosis: Diagnostic NT pro-BNP cutoffs for Heart Failure in the absence of renal failure is suggested for the following ranges <75 years: <125 pg/mL >=75 years: <450 pg/mL Exclusionary rule out cut-point for Acute Decompensated Heart Failure(ADHF) All ages: <300 pg/mL Diagnostic NT pro-BNP cutoffs for Acute Decompensated Heart Failure(ADHF) in the absence of renal failure is suggested for the following ages <50 years: > 450 pg/mL 50-75 years: > 900 pg/mL >75 years: >1800 pg/mL Blood Venipuncture / Unknown 09/15/2024 2:59 PM CDT 09/15/2024 3:08 PM CDT us Isabella Monroe MD CHEMISTRY ORDERABLES Final Resu lt Performing Organization Address [facility] Co de Phone Number [facility] CLIA # [id number] [address] [place] [phone] * (ABNORMAL) MAGNESIUM LEVEL (09/15/2024 2:59 PM CDT) [facility] MAGNESIUM 2.5(H) 1.6 - 2.4 mg/dL 09/15/2024 4:08 PM CDT [facility] Blood Venipuncture / Unknown 09/15/2024 2:59 PM CDT 09/15/2024 3:08 PM CDT us Isabella Monroe MD CHEMISTRY ORDERABLES Final Resu Performing Organization Address [facility] Co de Phone Number [facility] CLIA # [id number] [address] [place] [address] * (ABNORMAL) COMPREHENSIVE METABOLIC PANEL (09/15/2024 2:59 PM CDT) Only the most recent of2 resultswithin the time period is included. [facility] Signature SODIUM 140 136 - 145 mmol/L 09/15/2024 4:02 PM [facility] POTASSIUM 4.5 3.5 - 5.1 mmol/L 09/15/2024 4:02 PM [facility] CHLORIDE 98 98 - 107 mmol/L 09/15/2024 4:02 PM [facility] CO2 27 22 - 29 mmol/L 09/15/2024 4:02 PM [facility] CALCIUM 9.9 8.8 - 10.2 mg/dL 09/15/2024 4:02 PM [facility] BUN 29(H) 8 - 23 mg/dL 09/15/2024 4:02 PM [facility] CREATININE 1.25(H) 0.67 - 1.17 mg/dL 09/15/2024 4:02 PM [facility] GLUCOSE 179(H) 74 - 99 mg/dL 09/15/2024 4:02 PM [facility] TOTAL PROTEIN 6.5(L) 6.6 - 8.7 g/dL 09/15/2024 4:02 PM [facility] ALBUMIN 4.4 3.5 - 5.2 g/dL 09/15/2024 4:02 PM [facility] BILIRUBIN TOTAL 0.3 0.0 - 1.2 mg/dL 09/15/2024 4:02 PM [facility] ALKALINE PHOSPHATASE 101 40 - 129 U/L 09/15/2024 4:02 PM [facility] AST 23 0 - 50 U/L 09/15/2024 4:02 PM [facility] ALT 38 0 - 50 U/L 09/15/2024 4:02 PM [facility] GFR >60 >=60 mL/min/1.7 3 sq meter 09/15/2024 4:02 PM [facility] Comment:eGFR calculated with 2020 CKD-EPI equation. Vegetarian diet, extremely high or low muscle mass, and may affect results. Cystatin C with Glomerular Filtration Rate is a suitable alternative for these patients. ANION GAP 15 5 - 20 mmol/L 09/15/2024 4:02 PM CDT [facility] Blood Venipuncture / Unknown 09/15/2024 2:59 PM CDT 09/15/2024 3:08 PM CDT Isabella Monroe MD CHEMISTRY ORDERABLES Final Resu lt [facility] CLIA # [id number] [address] [place] [phone] * EKG 12 lead (09/15/2024 9:18 AM CDT) Narrative Isabella Monroe MD - 09/15/2024 9:18 AM CDT Isabella Monroe MD 09/18/2024 10:00 AM EKG 12 lead Date/Time: 09/15/2024 9:18 AM Performed by: Isabella Monroe MD Authorized by: Isabella Monroe MD ECG interpreted by ED Physician in the absence of a drapery sewer hand: yes Rate: ECG rate: 112 ECG rate assessment: age appropriate Rhythm: Rhythm Origin: sinus Intervals: normal QRSTT: QRSTT changes: Yes Comments: Non specific ST segment changes in II, III and aVF leads, however compared to the EKG a few days ago, no changes. Isabella Monroe MD ECG ORDERABLES Final Result * (ABNORMAL) HEMOGLOBIN A1C (05/11/2024 2:55 AM AUTO HIKER) HEMOGLOBIN A1C 6.3(H) <=5.6 % 05/11/2024 9:50 PM AUTO HIKER [facility] - [place] EST. AVG GLUCOSE, A1C 134 mg/dL 05/11/2024 9:50 PM [facility] [place] Blood BLOOD SPECIMEN / Unknown Venipuncture / Unknown 05/11/2024 2:55 AM AUTO HIKER 05/11/2024 3:23 AM AUTO HIKER Narrative [facility] [place] - 05/11/2024 9:50 PM AUTO HIKER HGB A1C INTERPRETATION NORMAL: <5.7% PRE-DIABETES: 5.7 - 6.4% DIABETES: 6.5% OR GREATER Dawood Wilkins MD CHEMISTRY ORDERABLES Fin al Result RACHEL DIAZ # [id number] [address] [facility] [address] [place] [place] [address] from Last 3 Months or Most Recently Relevant to Health Maintenance Insurance MEDICAID [place] MEDICARE PART A AND B RX [employer] RX Member Subscriber Plan / Payer (Ef fective 2021-Present) Name:Partha Roe Relation to Subscriber:Self Name:Partha Roe Subscriber ID:Not on file Payer ID:Not on file Group ID:[id number] Type:RX Commercial Address: [address] [place] Advance Directives For more information, please contact: [phone] * Full Code (Latest Code Status on File) Date Activated Date Inactivated Comments 06/28/2024 10:18 AM 06/28/2024 3:46 PM * Full Code Date Activated Date Inactivated Comments 05/10/2024 12:45 PM 05/12/2024 3:06 PM * Full Code Date Activated Date Inactivated Comments 03/17/2024 11:16 PM 03/20/2024 6:17 PM * Full Code Date Activated Date Inactivated Comments 02/05/2023 7:33 PM 02/09/2023 8:15 PM * Full Code Date Activated Date Inactivated Comments 08/03/2021 1:37 PM 08/03/2021 7:31 PM
--- NOTE | 2024-12-04 12:10 | ECG_ITS ---
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 Measurements Intervals [place] Rate: 107 P: 68 DC: 141 QRS: 48 QRSD: 72 T: 75 QT: 296 QTc: 395 Interpretive Statements Possible SINUS TACHYCARDIA Heavy baseline artifacts; Need to repeat the study. Electronically Signed On 12-04-2024 21:50:07 CDT by Tunde Browne M.D. [id number]
--- NOTE | 2024-12-04 12:21 | XRR_ITS ---
PROCEDURE INFORMATION: Exam: XR Thoracic Spine Exam date and time: 12/04/2024 1:08 PM Age: 64 years old Clinical indication: Pain in thoracic spine; Additional info: Back pain TECHNIQUE: Imaging protocol: Radiologic exam of the thoracic spine. Views: 3 views. COMPARISON: CR XR thoracic spine 3V* [id number] 10/09/2024 12:06 PM FINDINGS: Limitations: Over penetration. Bones/joints: Similar chronic compression fractures in the lower lumbar spine status post kyphoplasty. No definite new fractures. Soft tissues: Unremarkable. XR/XR thoracic spine 3V* [id number] IMPRESSION: Chronic thoracic spine fractures without acute findings.
--- NOTE | 2024-12-04 12:21 | XRR_ITS ---
PROCEDURE INFORMATION: Exam: XR Lumbosacral Spine Exam date and time: 12/04/2024 1:12 PM Age: 64 years old Clinical indication: Low back pain TECHNIQUE: Imaging protocol: Radiologic exam of the lumbosacral spine. Views: 2 or 3 views. COMPARISON: CR XR lumbar spine 2-3V* [id number] 10/09/2024 12:06 PM FINDINGS: Bones/joints: Chronic mild compression fractures of the lumbar spine. No acute fracture. Soft tissues: Unremarkable. Organs: Status post cholecystectomy. XR/XR lumbar spine 2-3V* [id number] IMPRESSION: Chronic mild compression fractures of the lumbar spine. No acute fracture.
--- NOTE | 2024-12-04 12:46 | W.ED.SOB ---
HPI - SOB/Dyspnea General: Chief Complaint: Shortness of Breath/Dyspnea Stated Complaint: SOB Time Seen by Provider: 12/04/24 12:11 Source: patient and EMS Mode of arrival: EMS Limitations: no limitations History of Present Illness: HPI Narrative: 64-year-old male has a history of COPD along with CHF states has been having some increasing shortness of breath over the last 2 days. States he has been having some wheezing and a slight cough. He did receive Solu-Medrol along with breathing treatments and route. He denies any chest pains denies any fevers. Associated symptoms: Deny abdominal pain, chest pain, fever(s), nausea or vomiting Related Data Home Medications ?Medication ?Instructions ?Recorded ?Confirmed sulfamethoxazole 800 1 tab PO .EVERY OTHER DAY 04/11/24 12/04/24 mg-trimethoprim 160 mg tablet (Bactrim DS) aspirin 81 mg tablet 81 mg PO DAILY 10/01/24 12/04/24 albuterol sulfate 2.5 mg/3 mL 2.5 mg inhalation Q4H PRN Wheezing 12/04/24 12/04/24 (0.083 %) solution for nebulization brimonidine 0.2 % eye drops 1 drp ophthalmic (eye) BID 12/04/24 12/04/24 cyclobenzaprine 10 mg tablet 10 mg PO TID PRN muscle spasms 12/04/24 12/04/24 dorzolamide 2 % eye drops 1 drp ophthalmic (eye) BID 12/04/24 12/04/24 imiquimod 5 % topical cream packet See Rx Instructions .Route .COMPLEX 12/04/24 12/04/24 prednisone 20 mg tablet 20 mg PO DAILY 12/04/24 12/04/24 Previous Rx's ?Medication ?Instructions ?Recorded simvastatin 40 mg tablet 40 mg PO QPM #30 tabs 05/08/24 buspirone 7.5 mg tablet 7.5 mg PO TID #60 tabs 05/14/24 nitroglycerin 0.4 mg sublingual 0.4 mg sublingual Q5M PRN chest 05/16/24 tablet pain #30 tabs losartan 50 mg tablet 50 mg PO DAILY blood pressure #90 07/30/24 tabs apixaban 5 mg tablet (Eliquis) 5 mg PO BID #60 tabs 08/20/24 empagliflozin 10 mg tablet 10 mg PO DAILY #30 tabs 08/20/24 (Jardiance) metoprolol succinate 25 mg 12.5 mg (1/2 x 25 mg) PO BID #60 08/20/24 tablet,extended release 24 hr tabs albuterol sulfate 90 mcg/actuation 2 puff inhalation Q6H PRN 10/09/24 aerosol inhaler (Ventolin HFA) breathing #8.5 grams fluticasone fur. 100 mcg-umeclid 1 inh inhalation DAILY #28 ea 10/09/24 62.5 mcg-vilant 25 mcg inhalat.powder (Trelegy Ellipta) furosemide 40 mg tablet 40 mg PO QAM edema/heart #30 tabs 10/25/24 gabapentin 100 mg capsule 100 mg PO BID #60 caps 11/20/24 Allergies Allergy/AdvReac Type Severity Reaction Status Date / Time cat dander Allergy Mild ADR-Swelling Verified 12/04/24 12:16 of the Eye ibuprofen Allergy Unknown Unknown Verified 12/04/24 12:16 menthol Allergy Unknown Verified 12/04/24 12:16 ketorolac (From Toradol) AdvReac renal Verified 12/04/24 12:16 failure Review of Systems Const: Denies: fever(s), chills, body aches or change in appetite ENMT: Denies: throat pain or dental pain Card: Denies: chest pain Resp: Reports: dyspnea, non-productive cough and wheezing GI: Denies: abdominal pain, nausea, vomiting or diarrhea Musc: Reports: back pain; Denies: neck pain Skin/Breast: Denies: rash Neuro: Denies: headache(s) PFSH ED PFSH: Medical History Enrolled in chronic care management Depression Pulmonary embolism Type 2 diabetes mellitus without complication, without long-term current use of insulin 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 Left ureteral calculus 02/09/2023 [facility] Bilateral lower extremity edema Non-smoker COPD (chronic obstructive pulmonary disease) Pulmonary sarcoidosis Hyperlipidemia ASHD (arteriosclerotic heart disease) 2016 stents x2 HTN (hypertension) Surgical History History of eye surgery History of back surgery H/O bilateral cataract extraction S/P PTCA (percutaneous transluminal coronary angioplasty) S/P cholecystectomy S/P skin cancer resection Family History Brother CAD (coronary artery disease) valve replaced Mother Lung disease Denies family history of Diabetes Clotting disorder Dementia Chronic kidney disease (CKD) Suicide Anesthesia complication Bleeding disorder Cancer Stroke Social History Smoking and tobacco/nicotine status: never used tobacco/nicotine Second hand smoke exposure: No Alcohol intake: never Substance/Drug Use: never Physical Exam Const: COMMON NORMALS: patient oriented x3 GENERAL APPEARANCE: in distress HENMT: COMMON NORMALS: normocephalic and atraumatic HEAD & SCALP: normocephalic and atraumatic Neck/C-Spine: COMMON NORMALS: full ROM and supple Chest: COMMONS NORMALS: normal inspection of the chest Resp: COMMON NORMALS: No retractions and No use of accessory muscles EFFORT & INSPECTION: Yes tachypneic and Yes respiratory distress AUSCULTATION: wheezes Cardio: COMMON NORMALS: regular rhythm and No murmurs present (Cardio) RATE: tachycardic RHYTHM: regular rhythm GI: COMMON NORMALS: Normal to inspection, nondistended, normoactive bowel sounds present, Soft to palpation, non-tender and no masses PALPATION: Yes Soft to palpation Extremity: COMMON NORMALS: normal to inspection and full ROM Neuro: COMMON NORMALS: patient oriented x3, moves all extremities and no focal motor deficits Psych: COMMON NORMALS: mental status grossly normal, Normal thought process present and cooperative THOUGHT PROCESS: Normal thought process present Skin: COMMON NORMALS: no rashes or lesions noted and no wounds GENERAL SKIN EXAM: no rashes or lesions noted Course Vital Signs: Vital signs: Vital Signs Temperature 97.8 F 12/04/24 12:04 Pulse Rate 110 H 12/04/24 12:45 Respiratory Rate 24 H 12/04/24 13:01 Blood Pressure 128/76 12/04/24 12:04 Pulse Oximetry 96 12/04/24 13:01 Oxygen Delivery Me thod Room Air 12/04/24 12:34 Fraction of Inspir ed Oxygen 21 12/04/24 12:34 MDM - SOB/Dyspnea Medical Decision Making Patient presents for shortness of breath likely COPD exacerbation. Have given him breathing treatments he did have an elevated white count along with lactate he is afebrile here. No definite pneumonia noted but does meet sepsis criteria. Patient had blood cultures drawn IV antibiotics given. Did give him fluid bolus did not give him the full fluid bolus with his extensive history of congestive heart failure has had normal blood pressures here. Spoke to the hospitalist will admit at this time. Lab Data I reviewed the patient's lab results. 12/04/24 13:26 12/04/24 13:26 Labs/Radiology: Radiology Impressions Chest X-Ray 12/04/24 12:02 IMPRESSION: No acute intrathoracic findings. Lumbar Spine X-Ray 12/04/24 12:21 IMPRESSION: Chronic mild compression fractures of the lumbar spine. No acute fracture. Thoracic Spine X-Ray 12/04/24 12:21 IMPRESSION: Chronic thoracic spine fractures without acute findings. Laboratory Results WBC 22.18 10^3/uL (3.29-11.43) H 12/04/24 13:26 RBC 4.43 10^6/uL (3.85-5.65) 12/04/24 13:26 Hgb 13.70 g/dL (11.27-16.99) 12/04/24 13:26 Hct 43.6 % (37-53) 12/04/24 13:26 MCV 98.4 fl (82-101) 12/04/24 13:26 MCH 30.9 pg (27-33) 12/04/24 13:26 MCHC 31.4 g/dL (30-55) 12/04/24 13:26 RDW 16.2 % (12.1-15.1) H 12/04/24 13:26 Plt Count 284 10^3/cmm (157-399) 12/04/24 13:26 MPV 9.9 fL (7.4-10.4) 12/04/24 13:26 Neut % (Auto) 93.2 % 12/04/24 13:26 Lymph % (Auto) 1.7 % 12/04/24 13:26 Murray % (Auto) 1.3 % 12/04/24 13:26 Eos % (Auto) 0.0 % 12/04/24 13:26 Baso % (Auto) 0.3 % 12/04/24 13:26 Neut # (Auto) 20.67 10^3/uL (1.8-7.7) H 12/04/24 13:26 Lymph # (Auto) 0.4 10^3/uL (0.8-4.8) L 12/04/24 13:26 Murray # (Auto) 0.3 10^3/uL (0.2-0.9) 12/04/24 13:26 Eos # (Auto) 0.0 10^3/uL (0.0-0.8) 12/04/24 13:26 Baso # (Auto) 0.1 10^3/uL (0.0-0.1) 12/04/24 13:26 Nucleated RBC % (auto) 0 % 12/04/24 13:26 Nucleated RBCs # 0.0 /100WBC 12/04/24 13:26 Sodium 138 mmol/L (136-145) 12/04/24 13:26 Potassium 4.6 mmol/L (3.5-5.1) 12/04/24 13:26 Chloride 100 mmol/L (98-107) 12/04/24 13:26 Carbon Dioxide 23 mmol/L (22-29) 12/04/24 13:26 Anion Gap 19.6 (5-19) H 12/04/24 13:26 BUN 25 mg/dL (8-23) H 12/04/24 13:26 Creatinine 0.9 mg/dL (0.7-1.2) 12/04/24 13:26 GFR Calculation 85.5 mL/min (90-130) L 12/04/24 13:26 Glucose 192 mg/dL (65-115) H 12/04/24 13:26 Calculated Osmolality 296 mOsm/kg (285-295) H 12/04/24 13:26 Lactic Acid 5.7 mmol/L (0.5-2.2) H* 12/04/24 13:26 Calcium 9.3 mg/dL (8.5-10.5) 12/04/24 13:26 Total Bilirubin 0.5 mg/dL (0.15-1.2) 12/04/24 13:26 AST 15 U/L (0-40) 12/04/24 13:26 ALT 23 U/L (0-41) 12/04/24 13:26 Alkaline Phosphatase 148 U/L (40-130) H 12/04/24 13:26 NT-Pro-B Natriuret Pep < 36 pg/mL (0-125) 12/04/24 13:26 Total Protein 6.5 g/dL (6.6-8.7) L 12/04/24 13:26 Albumin 4.0 g/dL (3.5-5.2) 12/04/24 13:26 Globulin 2.5 g/dL (1.3-4.6) 12/04/24 13:26 All radiology interpretation(s) finalized by discharge EKG Data EKG 1: I personally reviewed and interpreted this EKG as follows: EKG Interpretation Date: 12/04/24 EKG interpretation time: 12:10 Interpretation: sinus tach hr [address] elevation qrs 72 qtc 359 Critical Care Time Critical Care Time: Critical Care Time: Yes Total Critical Care Time: 45 Attestation: The high probability of a clinically significant, sudden or life threatening deterioration of the patient's resp system(s) required my full and direct attention, intervention and personal management. The critical care time is as shown. This time is in addition to time spent performing any reported procedures but includes the following: [x] Data and vital sign review and interpretation [x] Patient assessment, examination and intervention [x] Documentation [x] Medication orders and management Discharge Plan Discharge Patient Disposition: Admitted As Inpatient Clinical Impression: Asthma exacerbation in COPD, Acute respiratory failure with hypoxia, Sepsis Condition: Stable Coding Level of Care Code ED Lens Edger for Mirna Harman
[2024-12-04] MEDS: morphine 4 mg/mL SDV 1 mL IVP ×2 (13:01→15:50)
[2024-12-04] MEDS: ondansetron 2 mg/ML SDV 2 mL 4 MG IVP (13:02)
[2024-12-04 13:44] LABS: Hematocrit 43.6 % (37-53); Hemoglobin 13.70 g/dL (11.27-16.99); Mean Corpuscular HGB Conc 31.4 g/dL (30-55); Mean Corpuscular Hemoglobin 30.9 pg (27-33); Mean Corpuscular Volume 98.4 fl (82-101); Nucleated Red Blood Cells % 0 %; Platelet Count 284 10^3/cmm (157-399); Red Blood Count 4.43 10^6/uL (3.85-5.65); White Blood Count 22.18 10^3/uL (3.29-11.43)
[2024-12-04 14:10] LABS: Lactic Sepsis W/Reflex 5.7 mmol/L (0.5-2.2)
[2024-12-04 14:13] LABS: Alanine Aminotransferase 23 U/L (0-41); Albumin Level 4.0 g/dL (3.5-5.2); Alkaline Phosphatase 148 U/L (40-130); Anion Gap 19.6 (5-19); Aspartate Amino Transferase 15 U/L (0-40); Blood Urea Nitrogen 25 mg/dL (8-23); Calcium 9.3 mg/dL (8.5-10.5); Carbon Dioxide 23 mmol/L (22-29); Chloride 100 mmol/L (98-107); Creatinine Clr Calc Pharmacy 81.0213; Globulin 2.5 g/dL (1.3-4.6); Glucose 192 mg/dL (65-115); NT Pro B Type Natriuretic Pept < 36 pg/mL (0-125); Osmolality Calculated 296 mOsm/kg (285-295); Potassium 4.6 mmol/L (3.5-5.1); Sodium 138 mmol/L (136-145); Total Protein 6.5 g/dL (6.6-8.7)
--- NOTE | 2024-12-04 14:18 | CT_ITS ---
WS: [id number] CT CHEST ANGIOGRAPHY WITH REFORMATS HISTORY: sob TECHNIQUE: Contiguous axial images are obtained through the chest during arterial injection of intravenous contrast. Images are reconstructed to evaluate the pulmonary arteries. MIP imaging also reviewed. All CT scans at [facility] use at least one of these dose optimization techniques: automated exposure control; mA and/or kV adjustment per patient size (includes targeted exams where dose is matched to clinical indication); or iterative reconstruction. CONTRAST: Omnipaque 350; 100 mL IV. DLP: 381.15 mGy.cm COMPARISON: 06/27/2024 Good opacification of the pulmonary arteries. No filling defects or pulmonary emboli. Normal size pulmonary artery. Mild atherosclerosis aorta. Normal size aorta. Normal size heart. No pericardial or pleural effusions. Mild increased pleural fat. Mild increased AP diameter of the lungs. No pulmonary mass or nodule. RIGHT upper lobe calcified granuloma. No mediastinal or hilar adenopathy. Prior cholecystectomy. Possible cirrhotic liver. Suprarenal aortic calcifications. Atherosclerotic plaque continues into the mesenteric arteries. No adrenal mass. Increase in thoracic kyphosis with osteopenia and numerous osteoporotic compression fractures. Prior vertebroplasty at T10. Progression of compression fractures at T11 and T12 since 06/27/2024. Several posterior lower thorax rib fractures. No definite solid component associated with the fractures. CT/CT angio chest PE protcl [id number] IMPRESSION: 1. No pulmonary embolism. 2. No pneumonia. 3. No mediastinal or hilar adenopathy. 4. Mild atherosclerosis aorta. 5. Numerous osteoporotic compression fractures. Fractures have progressed at T 11 and T12 since 06/27/2024.
[2024-12-04] MEDS: cefTRIAXone 1,000 mg SDV 1000 MG IVP (14:27)
[2024-12-04] MEDS: iohexol 350 mg/mL 500 mL Btl (per mL) IV (15:16)
[2024-12-04 15:37] LABS: Reflex Lactate Order REFLEX LACTIC ORDERD
[2024-12-04 15:47] LABS: ABG PCO2 43.5 mmHg (35-45); ABG PH Result 7.27 (7.35-7.45); Arterial Blood Gas Hematocrit 41.4 % (42-52); Blood Gas Allen Test Pos; Blood Gas Operator Identificat WALCI; Blood Gas Sample Site Radial, left; Blood Gas Sample Type Arterial; HCO3 ABG 19.9 mmol/L (22-26); PO2 ABG 71.4 mmHg (80.0-100.0); PO2 FiO2 Ratio Arterial Blood 340
--- NOTE | 2024-12-04 16:02 | PM.HP ---
Providers/Chief Complaint Admitting Physician: Kelin Grady MD Primary Care Provider: Natalia Alvarado NP Chief Complaint: SOB History of Present Illness Partha Roe is a 64 year old male With past medical history of depression, vomiting embolism, type 2 diabetes mellitus, left kidney stone, COPD, non-smoker, sarcoidosis, hyperlipidemia, hypertension presented to the hospital today for complaint of shortness of breath. He states he has been having increasing shortness of breath in the last 2 days. He has been coughing however not expectorating any sputum. When seen he has slight conversational dyspnea. His work of breathing. BiPAP in place on the patient at this time. Oxygen saturation 96%. Denies chest pain fever nausea vomiting abdominal pain. ED course: Patient received 2 L normal saline bolus and 125 Solu-Medrol. Also had DuoNeb x 1. Lactic acid on arrival 5.7. Imaging does not show any definitive pneumonia. Blood cultures were drawn and IV antibiotics given. BNP less than 36. White count 22,000 which is chronic for him. Medications/Allergies Home Medications ?Medication ?Instructions ?Recorded ?Confirmed ?Last Taken ?Type sulfamethoxazole 800 1 tab PO .EVERY OTHER DAY 04/11/24 12/04/24 12/03/24 History mg-trimethoprim 160 mg tablet (Bactrim DS) simvastatin 40 mg tablet 40 mg PO QPM #30 tabs 05/08/24 12/04/24 12/03/24 Rx buspirone 7.5 mg tablet 7.5 mg PO TID #60 tabs 05/14/24 12/04/24 12/03/24 Rx nitroglycerin 0.4 mg sublingual 0.4 mg sublingual Q5M PRN chest 05/16/24 12/04/24 Unknown Rx tablet pain #30 tabs losartan 50 mg tablet 50 mg PO DAILY blood pressure #90 07/30/24 12/04/24 12/04/24 Rx tabs apixaban 5 mg tablet (Eliquis) 5 mg PO BID #60 tabs 08/20/24 12/04/24 12/04/24 Rx empagliflozin 10 mg tablet 10 mg PO DAILY #30 tabs 08/20/24 12/04/24 12/04/24 Rx (Jardiance) metoprolol succinate 25 mg 12.5 mg (1/2 x 25 mg) PO BID #60 08/20/24 12/04/24 12/04/24 Rx tablet,extended release 24 hr tabs aspirin 81 mg tablet 81 mg PO DAILY 10/01/24 12/04/24 12/04/24 History albuterol sulfate 90 mcg/actuation 2 puff inhalation Q6H PRN 10/09/24 12/04/24 Unknown Rx aerosol inhaler (Ventolin HFA) breathing #8.5 grams fluticasone fur. 100 mcg-umeclid 1 inh inhalation DAILY #28 ea 10/09/24 12/04/24 12/04/24 Rx 62.5 mcg-vilant 25 mcg inhalat.powder (Trelegy Ellipta) furosemide 40 mg tablet 40 mg PO QAM edema/heart #30 tabs 10/25/24 12/04/24 12/03/24 Rx gabapentin 100 mg capsule 100 mg PO BID #60 caps 11/20/24 12/04/24 12/04/24 Rx albuterol sulfate 2.5 mg/3 mL 2.5 mg inhalation Q4H PRN Wheezing 12/04/24 12/04/24 Unknown History (0.083 %) solution for nebulization brimonidine 0.2 % eye drops 1 drp ophthalmic (eye) BID 12/04/24 12/04/24 12/04/24 History cyclobenzaprine 10 mg tablet 10 mg PO TID PRN muscle spasms 12/04/24 12/04/24 Unknown History dorzolamide 2 % eye drops 1 drp ophthalmic (eye) BID 12/04/24 12/04/24 12/04/24 History imiquimod 5 % topical cream packet See Rx Instructions .Route .COMPLEX 12/04/24 12/04/24 12/04/24 History prednisone 20 mg tablet 20 mg PO DAILY 12/04/24 12/04/24 12/04/24 History Allergies Allergy/AdvReac Type Severity Reaction Status Date / Time cat dander Allergy Mild ADR-Swelling Verified 12/04/24 12:16 of the Eye ibuprofen Allergy Unknown Unknown Verified 12/04/24 12:16 menthol Allergy Unknown Verified 12/04/24 12:16 ketorolac (From Toradol) AdvReac renal Verified 12/04/24 12:16 failure PFSH Acute PFSH: Medical History (Updated 12/04/24 @ 15:45 by Krista Thakur MD) Enrolled in chronic care management Depression Pulmonary embolism Type 2 diabetes mellitus without complication, without long-term current use of insulin 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 Left ureteral calculus 02/09/2023 [facility] Bilateral lower extremity edema Non-smoker COPD (chronic obstructive pulmonary disease) Pulmonary sarcoidosis Hyperlipidemia ASHD (arteriosclerotic heart disease) 2016 stents x2 HTN (hypertension) Surgical History History of eye surgery History of back surgery H/O bilateral cataract extraction S/P PTCA (percutaneous transluminal coronary angioplasty) S/P cholecystectomy S/P skin cancer resection Family History Brother CAD (coronary artery disease) valve replaced Mother Lung disease Denies family history of Diabetes Clotting disorder Dementia Chronic kidney disease (CKD) Suicide Anesthesia complication Bleeding disorder Cancer Stroke Social History Smoking and tobacco/nicotine status: never used tobacco/nicotine Second hand smoke exposure: No Alcohol intake: never Substance/Drug Use: never Vitals/I&O/Wt Last Vital Signs Temp 97.8 F 12/04/24 12:04 Pulse 115 H 12/04/24 21:23 Resp 28 H 12/04/24 21:23 BP 108/75 12/04/24 21:23 Pulse Ox 93 12/04/24 21:23 O2 Del Method Room Air 12/04/24 22:28 FiO2 30 12/04/24 20:00 12/04/24 12/04/24 12/05/24 14:59 22:59 06:59 Intake Total 2280 / 2280 Balance 2280 / 2280 Weight last 48 hrs Weight 73.663 kg Weight 72.575 kg Physical Exam Narrative: General: Alert oriented x3, patient seen sitting up in bed , using abdominal muscles to breath HEENT: Normocephalic, atraumatic, EOMI, breathing nasal canula however it is not connected, saturating 96% Cardio: slightly tachycardic, normal S1-S2, Respiratory: very tight chest, very diminished b/l air entry Extremities: 3+ edema b/l LE Data 12/04/24 13:26 12/04/24 13:26 Micro: Microbiology 12/04/24 14:13 Blood Culture - Preliminary Blood SPECIMEN COLLECTED 12/04/24 14:08 Blood Culture - Preliminary Blood SPECIMEN COLLECTED A&P Assessment and plan 1. Enrolled in chronic care management: 2. HTN (hypertension): 3. Chronic diastolic heart failure: 4. Hyperlipidemia: 5. Pulmonary embolism: 6. Type 2 diabetes mellitus without complication, without long-term current use of insulin: 7. Leukocytosis: 8. Asthma exacerbation in COPD: 9. COPD with acute exacerbation: 10. Bilateral lower extremity edema: 11. Non-smoker: Plan: #COPD exacerbation #Diastolic HF #Chronic leukocytosis #HTN #Hx of PE #Lumbar compression fractures T11-T12 #Chronic back pain #Lactic acidosis, unclear cause #Type 2 DM without use of insulin #Hyperlipidemia - Pt s/p NS bolus in ER - Lactic acidosis unclear source, possibly sepsis vs type D, will recheck - Check CT chest abd pelvis to rule out other infectious source - TLSO brace for compression fractures - Continue Eliquis orally - Check trops, EKG - Check Echo - Continue on bipap, pt agrees to to intubation if needed - he is quite anxious at this time, will order buspar home dose - duoneb q6h scheduled - check sputum gm stain culture, blood culture - place on zosyn and azithromycin - solumedrol 40 q8h - sliding scale insulin low dose intensity - will hold off on further IV fluids - check chest xray in AM - may require precedex drip - will admit to ICU full code dvt ppx: on eliquis PDMP PDMP Reviewed: Not Reviewed Attestations Medical Necessity Statement*: copd exacerbation, however will require > 2 midnight stay, lactic acidosis, cough, anxiety, increase work of breathing. Diagnoses Enrolled in chronic care management Z78.9 HTN (hypertension) I10 Chronic diastolic heart failure I50.32 Hyperlipidemia E78.5 Pulmonary embolism I26.99 Type 2 diabetes mellitus without complication, without long-term current use of insulin E11.9 Diabetes mellitus tank terminal gauger insulin use: without tank terminal gauger use Diabetes mellitus complication status: without complication Leukocytosis D72.829 Asthma exacerbation in COPD J44.1 COPD with acute exacerbation J44.1 Bilateral lower extremity edema R60.0 Non-smoker Z78.9
[2024-12-04 16:06] LABS: Glucose Urine UA 3+ (Normal); Nitrate Urine Negative (Negative)
--- NOTE | 2024-12-04 16:06 | CTR_ITS ---
PROCEDURE INFORMATION: Exam: CT Abdomen And Pelvis Without Contrast Exam date and time: 12/04/2024 5:19 PM Age: 64 years old Clinical indication: Other: R/O infectious source TECHNIQUE: Imaging protocol: Computed tomography of the abdomen and pelvis without contrast. Radiation optimization: All CT scans at this facility use at least one of these dose optimization techniques: automated exposure control; mA and/or kV adjustment per patient size (includes targeted exams where dose is matched to clinical indication); or iterative reconstruction. COMPARISON: CT abdomen pelvis w con* [id number] 05/10/2018 10:08 AM RADIATION DOSE METRICS: Total DLP (mGy-cm): 781.68 FINDINGS: Liver: Probable fatty liver. Gallbladder and biliary ducts: Cholecystectomy clips. Pancreas: Normal. No ductal dilation. Spleen: Probable old granulomatous disease of spleen. Adrenal glands: Normal. No mass. Kidneys and ureters: Normal. No hydronephrosis. Stomach and bowel: Scattered colonic diverticula without definite significant acute inflammatory changes. Appendix: No evidence of appendicitis. Intraperitoneal space: No definitive evidence of acute abdominopelvic abnormality or occult infection. Vasculature: Aortic atherosclerosis. Lymph nodes: Unremarkable. No enlarged lymph nodes. Urinary bladder: Unremarkable as visualized. Reproductive: Unremarkable as visualized. Bones/joints: Chronic appearing wedge compression deformities of several lower thoracic vertebrae with vertebroplasty changes of T10. Lumbar vertebrae also severely osteopenic and depressed in morphology. Probable diffuse osteopenia. Soft tissues: Unremarkable. CT/CT abdomen pelvis wo con [id number] IMPRESSION: 1. Aortic atherosclerosis. 2. No definitive evidence of acute abdominopelvic abnormality or occult infection.
[2024-12-04 16:11] LABS: Add Urine Microscopic? YES
[2024-12-04 16:16] LABS: Specific Gravity, Urine 1.039 (1.005-1.030)
[2024-12-04] MEDS: pantoprazole 40 mg SDV IVP (16:52)
[2024-12-04 17:29] LABS: Procalcitonin 0.17 ng/mL (0-0.5); Thyroid Stimulating Hormone 0.93 uIU/mL (0.27-4.20)
[2024-12-04 17:32] LABS: ABG PCO2 45.4 mmHg (35-45); ABG PH Result 7.28 (7.35-7.45); Alveolar-Arterial Oxygen Gradi 3.8 mmHg (5-10); Arterial Blood Gas Hematocrit 40.5 % (42-52); Blood Gas Allen Test Pos; Blood Gas Operator Identificat WALCI; Blood Gas Sample Site Radial, left; Blood Gas Sample Type Arterial; Carboxyhemoglobin 1.3 %THgb (0.4-20.1); Glucose Level-ABG 160.0 mg/dL (70-115); HCO3 ABG 21.3 mmol/L (22-26); Ionized Calcium Level - ABG 1.2 mmol/L (1.1-1.4); Methemoglobin 1.0 % (0.4-1.5); Oxygen Saturation ABG 99.1; PO2 ABG 127.0 mmHg (80.0-100.0); PO2 FiO2 Ratio Arterial Blood 423; Potassium Level - ABG 4.6 mmol/L (3.5-5.0); Sodium Level - ABG 143.0 mmol/L (131-143)
--- NOTE | 2024-12-04 17:37 | ECG_ITS ---
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 Measurements Intervals [place] Rate: 108 P: 49 [place]: 142 QRS: 15 QRSD: 78 T: 68 QT: 322 QTc: 432 Interpretive Statements SINUS TACHYCARDIA NONSPECIFIC ST ELEVATION [0.05+ mV ST ELEVATION] ABNORMAL RHYTHM ECG Compared to ECG 12/04/2024 12:10:59 No significant changes Electronically Signed On 12-04-2024 20:42:27 CDT by Tunde Browne M.D. [email or web address]
[2024-12-04 18:05] LABS: Lactic Acid level (Lactate) 1.4 mmol/L (0.5-2.2)
[2024-12-04 18:06] LABS: Troponin(5th) Baseline 52 ng/L (0-15)
[2024-12-04] MEDS: piperacillin-tazobactam 3.375 GM in sodium chloride 0.9% (plus) 50 ML IV (18:26)
[2024-12-04 20:19] LABS: Lactic Sepsis W/Reflex 2.4 mmol/L (0.5-2.2)
[2024-12-04 21:36] LABS: Reflex Lactate Order REFLEX LACTIC ORDERD
--- NOTE | 2024-12-04 22:07 | ECG_ITS ---
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 Measurements Intervals [place] Rate: 92 P: 47 [place]: 127 QRS: 24 QRSD: 89 T: 77 QT: 347 QTc: 430 Interpretive Statements SINUS RHYTHM LOW QRS VOLTAGE IN PRECORDIAL LEADS [QRS DEFLECTION < 1.0 mV IN CHEST LEADS] Compared to ECG 12/04/2024 17:37:57 Low QRS voltage now present Sinus tachycardia no longer present ST (T wave) deviation no longer present Electronically Signed On 12-07-2024 20:48:54 CDT by Tunde Browne M.D. [id number]
[2024-12-04] MEDS: methylPREDNISolone sod succ 40 mg/mL INJ IVP (22:14)
[2024-12-04] MEDS: HYDROmorphone 0.5 MG/0.5 ML INJ IVP (22:15)
[2024-12-04 23:50] LABS: Troponin 5 6HR 55.29 ng/L (0-15); Troponin 5 6HR Delta 3.29 ng/L (0-12)
[2024-12-05] VITALS (13 sets, daily range): BP systolic 121–161; BP diastolic 75–88; PULSE 81–125; RESP 12–22; TEMP 36.2–36.6; O2SAT 93–100
[2024-12-05 00:03] LABS: Lactic Acid level (Lactate) 3.0 mmol/L (0.5-2.2)
[2024-12-05] MEDS: piperacillin-tazobactam 3.375 GM in sodium chloride 0.9% (plus) 50 ML IV ×4 (00:22→23:31)
[2024-12-05] MEDS: HYDROmorphone 0.5 MG/0.5 ML INJ IVP ×5 (03:52→21:37)
[2024-12-05 04:18] LABS: ABG PCO2 44.8 mmHg (35-45); ABG PH Result 7.33 (7.35-7.45); Alveolar-Arterial Oxygen Gradi 4.2 mmHg (5-10); Arterial Blood Gas Hematocrit 38.7 % (42-52); Blood Gas Allen Test Pos; Blood Gas Operator Identificat gerca; Blood Gas Sample Site Radial, left; Blood Gas Sample Type Arterial; Carboxyhemoglobin 1.5 %THgb (0.4-20.1); Glucose Level-ABG 149.0 mg/dL (70-115); HCO3 ABG 23.5 mmol/L (22-26); Ionized Calcium Level - ABG 1.3 mmol/L (1.1-1.4); Methemoglobin 1.0 % (0.4-1.5); Oxygen Saturation ABG 90.9; PO2 ABG 61.5 mmHg (80.0-100.0); PO2 FiO2 Ratio Arterial Blood 292; Potassium Level - ABG 4.6 mmol/L (3.5-5.0); Sodium Level - ABG 143.0 mmol/L (131-143)
[2024-12-05] MEDS: methylPREDNISolone sod succ 40 mg/mL INJ IVP ×3 (05:44→20:30)
--- NOTE | 2024-12-05 07:00 | XRR_ITS ---
PROCEDURE INFORMATION: Exam: XR Chest Exam date and time: 12/05/2024 6:50 AM Age: 64 years old Clinical indication: Condition or disease; Lung condition and disease; Pulmonary edema; Status not specified; Additional info: Pulm edema TECHNIQUE: Imaging protocol: Radiologic exam of the chest. Views: 1 view. COMPARISON: CT angio chest PE protcl [id number] 12/04/2024 3:13 PM FINDINGS: Lungs: Poor inspiratory effort with hypoventilatory changes in the lower lobes. Pleural spaces: Unremarkable. No pleural effusion. No pneumothorax. Heart/Mediastinum: See Vasculature finding. Vasculature: Borderline cardiomegaly and uncoiling of the thoracic aorta is accentuated by the AP positioning. Bones/joints: Unremarkable. Soft tissues: Surgery in the region of the right axilla. XR/XR chest 1V portable [id number] IMPRESSION: No acute findings.
--- NOTE | 2024-12-05 07:17 | ECG_ITS ---
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 Measurements Intervals [place] Rate: 86 P: 47 [place]: 125 QRS: 27 QRSD: 88 T: 78 QT: 353 QTc: 424 Interpretive Statements SINUS RHYTHM Compared to ECG 12/05/2024 00:35:31 No significant changes Electronically Signed On 12-05-2024 17:33:17 CDT by Tunde Browne M.D. [email or web address]
--- NOTE | 2024-12-05 09:47 | PC.CHAP ---
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 visit [] Patient/Family/Request visit [] Outpatient visit [] Follow-up visit [] Physician referral [] Code/Alert [x] Routine visit [] Staff referral [] Actively dying [] Patient sleeping [] Family support [] [] Out of room [] Palliative care [] [] Receiving care in room [] Pre-surgical visit [] Trauma [] Long length of stay [] ICU visit [] Other: Relational/Emotional Strength [x] Patient feels connected with others/family/visitors/staff [] Distress [] Loneliness/isolation [] Abandonment Spirituality of Patient [x] Person of Cher [] Attends Jain of their Cher [x] Believes in Prayer [] Reads Bible or Buddhism materials [] There are Spiritual issues to be addressed Rn Clinical Resource Interventions [x] Prayer [] Active listening [] Non-anxious presence [x] Spiritual/emotional support [] Crisis/trauma care [] Spiritual counseling [] Bereavement support [] Provided bereavement packet [] Provided Bible/devotional materials [] Provided toy/stuffed animal, coloring book to patient or family member [] Provided Communion [] Anointing/[place] [] Salvation [x] Completed spiritual assessment [] Other: Impact on Illness or Injury [] Angry [] Fearful [] Anxious [] Often cries [] Exhaustion [] Unable to work [] Unable to attend zoroastrian [] Unable to walk/stand [] Unable to read [] Unable to drive [] Unable to eat/drink [] Unable to sleep [] Unable to be with family [] Patient intubated [] Other: Summary Time spent with patient 5 min
[2024-12-05 10:11] LABS: Hematocrit 39.0 % (37-53); Hemoglobin 12.10 g/dL (11.27-16.99); Mean Corpuscular HGB Conc 31.0 g/dL (30-55); Mean Corpuscular Hemoglobin 30.6 pg (27-33); Mean Corpuscular Volume 98.7 fl (82-101); Nucleated Red Blood Cells % 0 %; Platelet Count 278 10^3/cmm (157-399); Red Blood Count 3.95 10^6/uL (3.85-5.65); White Blood Count 22.10 10^3/uL (3.29-11.43)
[2024-12-05 10:34] LABS: Alanine Aminotransferase 21 U/L (0-41); Albumin Level 3.7 g/dL (3.5-5.2); Alkaline Phosphatase 132 U/L (40-130); Anion Gap 19.7 (5-19); Aspartate Amino Transferase 18 U/L (0-40); Blood Urea Nitrogen 28 mg/dL (8-23); Calcium 8.9 mg/dL (8.5-10.5); Carbon Dioxide 23 mmol/L (22-29); Chloride 103 mmol/L (98-107); Creatinine Clr Calc Pharmacy 73.5284; Globulin 2.2 g/dL (1.3-4.6); Glucose 269 mg/dL (65-115); Magnesium 2.4 mg/dL (1.7-2.3); Osmolality Calculated 307 mOsm/kg (285-295); Potassium 4.7 mmol/L (3.5-5.1); Sodium 141 mmol/L (136-145); Total Protein 5.9 g/dL (6.6-8.7)
--- NOTE | 2024-12-05 11:22 | PM.PN ---
Subjective Subjective: seen this am says he can breath better today has TLSO brace at this time Vitals/I&O/Wt Last Vital Signs Temp 97.9 F 12/05/24 07:59 Pulse 111 H 12/05/24 08:37 Resp 20 H 12/05/24 08:37 BP 138/86 12/05/24 07:59 Pulse Ox 97 12/05/24 08:37 O2 Del Method Room Air 12/05/24 08:37 FiO2 30 12/05/24 02:40 12/04/24 12/05/24 12/05/24 22:59 06:59 14:59 Intake Total 2280 / 2280 50 / 2330 360 / 360 Output Total 400 / 400 Balance 2280 / 2280 -350 / 1930 360 / 360 Weight last 48 hrs Weight 73.981 kg Weight 73.663 kg Weight 72.575 kg Physical Exam Narrative: General: Alert oriented x3, patient seen sitting up on edge of bed, TLSO brace in place HEENT: Normocephalic, atraumatic, EOMI, on room air Cardio: slightly tachycardic, normal S1-S2, Respiratory: very diminished b/l air entry but better air movement compared to admission, improving Extremities: 2+ edema b/l LE Data 12/05/24 10:03 12/05/24 10:03 Micro: Microbiology 12/04/24 14:13 Blood Culture - Preliminary Blood SPECIMEN COLLECTED 12/04/24 14:08 Blood Culture - Preliminary Blood SPECIMEN COLLECTED A&P Assessment and plan 1. Enrolled in chronic care management: 2. HTN (hypertension): 3. Chronic diastolic heart failure: 4. Hyperlipidemia: 5. Pulmonary embolism: 6. Type 2 diabetes mellitus without complication, without long-term current use of insulin: 7. Leukocytosis: 8. Asthma exacerbation in COPD: 9. COPD with acute exacerbation: 10. Bilateral lower extremity edema: 11. Non-smoker: Plan: #COPD exacerbation #Diastolic HF #Chronic leukocytosis #HTN #Hx of PE #Lumbar compression fractures T11-T12 #Chronic back pain #Lactic acidosis, unclear cause #Type 2 DM without use of insulin #Hyperlipidemia - Pt s/p NS bolus in ER - Lactic acidosis unclear source, possibly sepsis vs type D, will recheck - Check CT chest abd pelvis to rule out other infectious source - TLSO brace for compression fractures - Continue Eliquis orally - Check trops, EKG - Check Echo - Continue on bipap, pt agrees to to intubation if needed - he is quite anxious at this time, will order buspar home dose - duoneb q6h scheduled - check sputum gm stain culture, blood culture - place on zosyn and azithromycin - solumedrol 40 q8h - sliding scale insulin low dose intensity - will hold off on further IV fluids - check chest xray in AM - may require precedex drip - will admit to ICU full code dvt ppx: on eliquis 12/05/2024 seen today patient feeling slightly better sliding scale low dose intensity continue eliquis TSLO ct chest abd pelvis: no acute pathology cr 1.0 trops: 52, 55.29, delta 3.29 bnp < 36 2+ edema b/l LE, lungs have no crackles sinus tachycardia, appears dry,will order ns 75 cc/hr for 500 cc total PDMP PDMP Reviewed: Not Reviewed Attestations Medical Necessity Statement*: copd exacerbation, however will require > 2 midnight stay, Diagnoses Enrolled in chronic care management Z78.9 HTN (hypertension) I10 Chronic diastolic heart failure I50.32 Hyperlipidemia E78.5 Pulmonary embolism I26.99 Type 2 diabetes mellitus without complication, without long-term current use of insulin E11.9 Diabetes mellitus complication status: without complication Diabetes mellitus half-way insulin use: without half-way use Leukocytosis D72.829 Asthma exacerbation in COPD J44.1 COPD with acute exacerbation J44.1 Bilateral lower extremity edema R60.0 Non-smoker Z78.9
[2024-12-05] MEDS: pantoprazole 40 mg SDV IVP (17:37)
[2024-12-05] MEDS: HYDROcodone-acetaminophen 5-325 mg Tablet 1 TAB PO (20:30)
[2024-12-06] VITALS (9 sets, daily range): BP systolic 115–144; BP diastolic 87–118; PULSE 104–122; RESP 17–24; TEMP 36.1–36.4; O2SAT 92–97; BMI 66.2
[2024-12-06] MEDS: HYDROmorphone 0.5 MG/0.5 ML INJ IVP ×3 (01:52→09:33)
[2024-12-06] MEDS: HYDROcodone-acetaminophen 5-325 mg Tablet 1 TAB PO (03:08)
[2024-12-06 04:30] LABS: Hematocrit 37.0 % (37-53); Hemoglobin 11.50 g/dL (11.27-16.99); Mean Corpuscular HGB Conc 31.1 g/dL (30-55); Mean Corpuscular Hemoglobin 30.7 pg (27-33); Mean Corpuscular Volume 98.9 fl (82-101); Nucleated Red Blood Cells % 0 %; Platelet Count 280 10^3/cmm (157-399); Red Blood Count 3.74 10^6/uL (3.85-5.65); White Blood Count 17.79 10^3/uL (3.29-11.43)
[2024-12-06 05:01] LABS: Anion Gap 18.4 (5-19); Blood Urea Nitrogen 31 mg/dL (8-23); Calcium 9.3 mg/dL (8.5-10.5); Carbon Dioxide 23 mmol/L (22-29); Chloride 103 mmol/L (98-107); Creatinine Clr Calc Pharmacy 73.5284; Glucose 250 mg/dL (65-115); Magnesium 2.5 mg/dL (1.7-2.3); Osmolality Calculated 305 mOsm/kg (285-295); Potassium 4.4 mmol/L (3.5-5.1); Sodium 140 mmol/L (136-145)
[2024-12-06] MEDS: methylPREDNISolone sod succ 40 mg/mL INJ IVP (05:41)
[2024-12-06] MEDS: piperacillin-tazobactam 3.375 GM in sodium chloride 0.9% (plus) 50 ML IV (09:34)
--- NOTE | 2024-12-06 11:38 | PM.DCS ---
Discharge Providers Date of Admission: 12/04/24 15:41 Date of Discharge: December 06, 2024 Attending Provider at Admission: Kelin Grady MD Attending Provider at Discharge: Kelin Grady MD Primary Care Provider: Natalia Alvarado NP Diagnoses at Discharge Discharge Diagnosis 1. Enrolled in chronic care management: 2. Primary hypertension: 3. Chronic diastolic heart failure: 4. Other hyperlipidemia: 5. Pulmonary embolism: 6. Type 2 diabetes mellitus without complication, without long-term current use of insulin: 7. Leukocytosis: 8. Asthma exacerbation in COPD: 9. COPD with acute exacerbation: 10. Bilateral lower extremity edema: 11. Non-smoker: Reason for Visit Reason for Visit: SOB Hospital Course Hospital Course Patient presented to the hospital with shortness of breath and was admitted for COPD exacerbation. He did have elevated lactic acid on arrival. Cause unknown. He does have chronic elevated white count. Was given steroids azithromycin and antibiotics. Lactic acid did improve by the time of discharge. Also had compression fracture in T11 and T12 for which TLSO brace was fitted. Patient to follow-up with orthopedic surgery as an outpatient. Discussed with Dr. Maynard over the phone prior to discharge. CT chest and pelvis also done. Patient shortness of breath improved's and he was sent home on steroid and antibiotics. He has to follow-up with pulm clinic as an outpatient. Patient discharged home in stable condition. Does have a hx of PE for which he has to continue his Eliquis. Physical Exam Narrative: General: Alert oriented x3, patient seen sitting up on edge of bed, TLSO brace in place HEENT: Normocephalic, atraumatic, EOMI, on room air Cardio: slightly tachycardic, normal S1-S2, Respiratory: diminished b/l air entry but significant improvement in air movement compared to admission Extremities: 1+ edema b/l LE Discharge Data Studies Completed and Pending Completed Studies During Hospitalization Category Date Time Status CT abdomen pelvis wo con [id number] Stat Cat Scan 12/04/24 16:06 Completed CTA chest [CT angio chest PE protcl [id number]] Stat Cat Scan 12/04/24 14:18 Completed XR chest 1V portable [id number] Routine Exams 12/05/24 07:00 Completed XR chest 1V portable [id number] Stat Exams 12/04/24 12:02 Completed XR lumbar spine 2-3V* [id number] Stat Exams 12/04/24 12:21 Completed XR thoracic spine 3V* [id number] Stat Exams 12/04/24 12:21 Completed Pending at discharge Category Date Time Status Blood Culture Stat Lab 12/04/24 14:13 Results Sputum Culture and Gram Stain Stat Lab 12/04/24 16:06 Uncollected Radiology Impressions Lumbar Spine X-Ray 12/04/24 12:21 IMPRESSION: Chronic mild compression fractures of the lumbar spine. No acute fracture. Thoracic Spine X-Ray 12/04/24 12:21 IMPRESSION: Chronic thoracic spine fractures without acute findings. Chest CTA 12/04/24 14:18 IMPRESSION: 1. No pulmonary embolism. 2. No pneumonia. 3. No mediastinal or hilar adenopathy. 4. Mild atherosclerosis aorta. 5. Numerous osteoporotic compression fractures. Fractures have progressed at T11 and T12 since 06/27/2024. Abdomen/Pelvis CT 12/04/24 16:06 IMPRESSION: 1. Aortic atherosclerosis. 2. No definitive evidence of acute abdominopelvic abnormality or occult infection. Chest X-Ray 12/05/24 07:00 IMPRESSION: No acute findings. Laboratory Results WBC 17.79 10^3/uL (3.29-11.43) H 12/06/24 03:17 Corrected WBC Cancelled 12/05/24 04:30 RBC 3.74 10^6/uL (3.85-5.65) L 12/06/24 03:17 Hgb 11.50 g/dL (11.27-16.99) 12/06/24 03:17 Hct 37.0 % (37-53) 12/06/24 03:17 MCV 98.9 fl (82-101) 12/06/24 03:17 MCH 30.7 pg (27-33) 12/06/24 03:17 MCHC 31.1 g/dL (30-55) 12/06/24 03:17 RDW 15.9 % (12.1-15.1) H 12/06/24 03:17 Plt Count 280 10^3/cmm (157-399) 12/06/24 03:17 MPV 10.4 fL (7.4-10.4) 12/06/24 03:17 Gran % Cancelled 12/05/24 04:30 Neut % (Auto) 90.9 % 12/06/24 03:17 Lymph % (Auto) 1.6 % 12/06/24 03:17 [place] % (Auto) 5.2 % 12/06/24 03:17 Eos % (Auto) 0.0 % 12/06/24 03:17 Baso % (Auto) 0.1 % 12/06/24 03:17 Neut # (Auto) 16.17 10^3/uL (1.8-7.7) H 12/06/24 03:17 Lymph # (Auto) 0.3 10^3/uL (0.8-4.8) L 12/06/24 03:17 [place] # (Auto) 0.9 10^3/uL (0.2-0.9) 12/06/24 03:17 Eos # (Auto) 0.0 10^3/uL (0.0-0.8) 12/06/24 03:17 Baso # (Auto) 0.0 10^3/uL (0.0-0.1) 12/06/24 03:17 Absolute Gran (auto) Cancelled 12/05/24 04:30 Nucleated RBC % (auto) 0 % 12/06/24 03:17 Nucleated RBCs # 0.0 /100WBC 12/06/24 03:17 Specimen Type Arterial 12/05/24 04:06 Sample Site Radial, left 12/05/24 04:06 ABG pH 7.33 (7.35-7.45) L 12/05/24 04:06 ABG pCO2 44.8 mmHg (35-45) 12/05/24 04:06 ABG pO2 61.5 mmHg (80.0-100.0) L 12/05/24 04:06 ABG PO2/FiO2 Ratio 292 12/05/24 04:06 ABG HCO3 23.5 mmol/L (22-26) 12/05/24 04:06 ABG O2 Saturation 90.9 12/05/24 04:06 ABG Base Excess -2.6 mmol/L (-2.0-2.0) L 12/05/24 04:06 Juan Antonio Test Pos 12/05/24 04:06 A-a O2 Gradient 4.2 mmHg (5-10) L 12/05/24 04:06 Hematocrit 38.7 % (42-52) L 12/05/24 04:06 Hgb O2 Saturation 88.6 % (95-100) L 12/05/24 04:06 Carboxyhemoglobin 1.5 %THgb (0.4-20.1) 12/05/24 04:06 Methemoglobin 1.0 % (0.4-1.5) 12/05/24 04:06 Total Hemoglobin 12.6 g/dL (14-18) L 12/05/24 04:06 Sodium 143.0 mmol/L (131-143) 12/05/24 04:06 Potassium 4.6 mmol/L (3.5-5.0) 12/05/24 04:06 Glucose 149.0 mg/dL (70-115) H 12/05/24 04:06 Ionized Calcium 1.3 mmol/L (1.1-1.4) 12/05/24 04:06 O2 Delivery Device Room air 12/05/24 04:06 FiO2 21.0 % 12/05/24 04:06 Bone Crusher ID gerca 12/05/24 04:06 Sodium 140 mmol/L (136-145) 12/06/24 03:17 Potassium 4.4 mmol/L (3.5-5.1) 12/06/24 03:17 Chloride 103 mmol/L (98-107) 12/06/24 03:17 Carbon Dioxide 23 mmol/L (22-29) 12/06/24 03:17 Anion Gap 18.4 (5-19) 12/06/24 03:17 BUN 31 mg/dL (8-23) H 12/06/24 03:17 Creatinine 1.0 mg/dL (0.7-1.2) 12/06/24 03:17 GFR Calculation 75.7 mL/min (90-130) L 12/06/24 03:17 Glucose 250 mg/dL (65-115) H 12/06/24 03:17 Calculated Osmolality 305 mOsm/kg (285-295) H 12/06/24 03:17 Lactic Acid 2.4 mmol/L (0.5-2.2) H 12/04/24 19:35 Lactic Acid (Sepsis) 3.0 mmol/L (0.5-2.2) H 12/04/24 22:59 Calcium 9.3 mg/dL (8.5-10.5) 12/06/24 03:17 Magnesium 2.5 mg/dL (1.7-2.3) H 12/06/24 03:17 Total Bilirubin 0.3 mg/dL (0.15-1.2) 12/05/24 10:03 AST 18 U/L (0-40) 12/05/24 10:03 ALT 21 U/L (0-41) 12/05/24 10:03 Alkaline Phosphatase 132 U/L (40-130) H 12/05/24 10:03 Troponin T Baseline 52 ng/L (0-15) H 12/04/24 16:58 Troponin T Hi Sens 6Hr 55.29 ng/L (0-15) H 12/04/24 22:59 Troponin T Hi Sens 6Hr Delta 3.29 ng/L (0-12) 12/04/24 22:59 NT-Pro-B Natriuret Pep < 36 pg/mL (0-125) 12/04/24 13:26 Total Protein 5.9 g/dL (6.6-8.7) L 12/05/24 10:03 Albumin 3.7 g/dL (3.5-5.2) 12/05/24 10:03 Globulin 2.2 g/dL (1.3-4.6) 12/05/24 10:03 Procalcitonin 0.17 ng/mL (0-0.5) 12/04/24 13:26 TSH 0.93 uIU/mL (0.27-4.20) 12/04/24 13:26 Urine Color Yellow (Yellow) 12/04/24 15:47 Urine Appearance Clear (CLEAR) 12/04/24 15:47 Urine pH 5.5 (5-7) 12/04/24 15:47 Ur Specific [place] 1.039 (1.005-1.030) H 12/04/24 15:47 Urine Protein Negative (Negative) 12/04/24 15:47 Urine Glucose (UA) 3+ (Normal) H 12/04/24 15:47 Urine Ketones Trace (Negative) 12/04/24 15:47 Urine Blood Negative (Negative) 12/04/24 15:47 Urine Nitrate Negative (Negative) 12/04/24 15:47 Urine Bilirubin Negative (Negative) 12/04/24 15:47 Urine Urobilinogen 1.0 mg/dL (Negative) 12/04/24 15:47 Ur Leukocyte Esterase Negative (Negative) 12/04/24 15:47 Urine RBC 0-2 /hpf (0-2) 12/04/24 15:47 Urine WBC 0-5 /hpf (0-5) 12/04/24 15:47 Ur Squamous Epith Cells 0-5 /hpf (0-5) 12/04/24 15:47 Amorphous Sediment Not Reportable 12/04/24 15:47 Urine Bacteria None seen /hpf (NONE) 12/04/24 15:47 Hyaline Casts 0.40 /lpf 12/04/24 15:47 Vitals Last Vital Signs Temp 97.0 F L 12/06/24 08:00 Pulse 122 H 12/06/24 08:00 Resp 22 H 12/06/24 08:00 BP 140/118 12/06/24 08:00 Pulse Ox 93 12/06/24 08:00 O2 Del Method Room Air 12/06/24 08:00 FiO2 30 12/05/24 02:40 Discharge Plan Discharge Patient Disposition: Home Condition: Stable Prescriptions: Continued simvastatin 40 mg tablet 40 mg PO QPM Qty: 30 2RF Jardiance 10 mg tablet 10 mg PO DAILY Qty: 30 6RF metoprolol succinate 25 mg tablet extended release 24 hr 12.5 mg PO BID Qty: 60 2RF aspirin 81 mg tablet 81 mg PO DAILY buspirone 7.5 mg tablet 7.5 mg PO TID Qty: 60 2RF nitroglycerin 0.4 mg tablet, sublingual 0.4 mg sublingual Q5M PRN (Reason: chest pain) Qty: 30 2RF Rx Instructions: do not exceed 3 doses per episode losartan 50 mg tablet 50 mg PO DAILY Qty: 90 1RF furosemide 40 mg tablet 40 mg PO QAM Qty: 30 5RF imiquimod 5 % cream in packet See Rx Instructions .ROUTE .COMPLEX Rx Instructions: APPLY TO AFFECTED AREA ON LEFT NECK ONCE DAILY TUESDAY-TUESDAY (OFF WEEKENDS) FOR SIX WEEKS. WILL CAUSE REDNESS AND IRRITATION. brimonidine 0.2 % drops 1 drp ophthalmic (eye) BID dorzolamide 2 % drops 1 drp ophthalmic (eye) BID albuterol sulfate 2.5 mg /3 mL (0.083 %) solution for nebulization 2.5 mg inhalation Q4H PRN (Reason: Wheezing) Qty: 30 0RF albuterol sulfate [Ventolin HFA] 90 mcg/actuation HFA aerosol inhaler 2 puff INHALATION Q6H PRN (Reason: breathing) Qty: 8.5 1RF Changed prednisone 20 mg tablet See Rx Instructions .ROUTE .COMPLEX Qty: 30 0RF Rx Instructions: take 40 mg daily x 4 days then switch back to 20 mg thereafter Held sulfamethoxazole-trimethoprim [Bactrim DS] 800-160 mg Tablet 1 tab PO .EVERY OTHER DAY Hold Instructions: Restart after completing your azithromycin and cefdinir antibiotics. No Action Trelegy Ellipta 100-62.5-25 mcg blister with device 1 inh inhalation DAILY Qty: 28 0RF (DME) Nebulizer with tubing and filter See Rx Instructions .Route .MEDSUPPLY Qty: 1 0RF Rx Instructions: as directed cyclobenzaprine 10 mg tablet 10 mg PO TID PRN (Reason: muscle spasms) Qty: 90 0RF gabapentin 100 mg capsule 100 mg PO BID Qty: 60 0RF Eliquis 5 mg tablet 5 mg PO BID Qty: 60 2RF Discharge Order = DC NOW: Discharge Order (Routine); Ordered 12/06/24 Ordered By: Kelin Grady Other Ambulatory Orders: DME: Peter (Order) Location: None Selected Ordered By: Kelin Grady Referrals: [facility] [place] [Outside] Dony Maynard DO [Physician, Orthopedics] - 12/20/24 1:30 pm Natalia Alvarado NP [Primary Care Provider, Family Practice] - 1-3 days Referral Note: We have notified your physician's clinic of the need for a follow-up appointment to be scheduled. If you have not heard from them within the next 2 business days, please call them directly. Elder Catalan MD [Hospitalist, Oncology] - 12/12/24 11:15 am Referral Note: We have notified your physician's clinic of the need for a follow-up appointment to be scheduled. If you have not heard from them within the next 2 business days, please call them directly. Discharge Diet: Diabetic Discharge Activity: Oxygen as instructed Patient Instructions: Opioid Safety, Patient Portal & [place] Instructions Discharge Attestations Time Spent in Discharge Care*: less than 30 min Quality Metrics Clinical Quality Measures [ No reported AMI, CVA or VTE this stay] Coding Level of Care Code Acute Code for Chg Fwd Diagnoses Enrolled in chronic care management Z78.9 Primary hypertension I10 Hypertension type: primary hypertension Chronic diastolic heart failure I50.32 Other hyperlipidemia E78.49 Hyperlipidemia type: other hyperlipidemia Pulmonary embolism I26.99 Type 2 diabetes mellitus without complication, without long-term current use of insulin E11.9 Diabetes mellitus complication status: without complication 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
== END 2024-12-06 13:23 | disposition home or self-care (01) | DRG 191 ==
LOC: ER 15:45 → CSU 19:09
PROVIDERS: Admitting Provider Internal Medicine; Emergency Provider Emergency Medicine; Visit Provider Internal Medicine
DX: J44.1 Chronic obstructive pulmonary disease with (acute) exacerbation (principal); E87.20 Acidosis, unspecified; S22.089A Unspecified fracture of T11-T12 vertebra, initial encounter for closed fracture; I50.32 Chronic diastolic (congestive) heart failure; I11.0 Hypertensive heart disease with heart failure; E78.5 Hyperlipidemia, unspecified; D86.9 Sarcoidosis, unspecified; E11.9 Type 2 diabetes mellitus without complications; X58.XXXA Exposure to other specified factors, initial encounter; G89.29 Other chronic pain; M54.50 Low back pain, unspecified; F41.9 Anxiety disorder, unspecified; I25.10 Atherosclerotic heart disease of native coronary artery without angina pectoris; F32.A Depression, unspecified; Z86.711 Personal history of pulmonary embolism; Z79.01 Long term (current) use of anticoagulants; Z87.898 Personal history of other specified conditions; Z95.5 Presence of coronary angioplasty implant and graft; Z79.82 Long term (current) use of aspirin; Z79.84 Long term (current) use of oral hypoglycemic drugs
CPT/HCPCS: 36415; 36600; 71045; 71275; 72072; 72100; 74176; 80048; 80051; 80053; 81001; 82330; 82803; 82805; 83605; 83735; 83880; 84145; 84443; 84484; 85025; 87040; 93005; 94640; 94660; 94664; 94760; 96365; 96367; 96375; 96376; 97116; 97161; 97760; 99285; J0456; J0696; J1171; J2270; J2405; J2470; J2543; J2919; J7030; J7040; J7050; J7611; J7613; J9999; L0456; Q0144

== ENCOUNTER → 2024-12-17 15:18 | Outpatient (BNVA) | payer MEDICARE, MEDICAID, SELFPAY | DX: A41.9 Sepsis, unspecified organism (principal) | CPT/HCPCS: 80053; 85025 ==

== ENCOUNTER 2024-12-18 06:06 | Inpatient (IN) | payer MEDICARE, MEDICAID, SELFPAY ==
--- OUTSIDE RECORDS SUMMARY | 2024-12-11 13:45 | XMS_ITS | Encounter Summary ---
Author Organization [facility] Address [address] [address] Phone Care Team Providers Care Merchandising Director Name Role Phone Refugio Bedoya Primary Care Provider [phone] Encounter Details Date Type Department Care Team (Latest Contact Info) Description 12/11/2024 1:45 PM CDT Telemedicine [facility]OLOGY [facility]INIC MEDICAL OFFICE BUILDING [address] [place] [phone] Kirill Keen MD [address] [place], [place] [id number] Sarcoidosis (Primary Dx); Stage 3 severe COPD by GOLD classification (CMS/HCC); Centrilobular emphysema (CMS/HCC); Allergic rhinitis due to animal hair and dander; Smokeless tobacco use; Second hand smoke exposure; Non-smoker; Immunization counseling Social History Tobacco Use Types Packs/Day Years [...] Recorded Patient Health Questionnaire-2 Score 0 05/30/2024 [facility] - Mental Health Answer Date Recorde d [...] on file documented as of this encounter Progress Notes * Kirill Keen MD - 12/11/2024 1:45 PM CDT [facility] PULMONOLOGY MEDICAL OFFICE BUILDING [address] [place] [phone] PROGRESS NOTE Date of service: 12/11/2024 Reason for Appointment Sarcoidosis, COPD follow-up. This is an audio/visual televisit with Partha Roe. Platform is [employer]. During the visit I was located in my office and the patient was located at their home. The session started at 1342 and ended at 1409. The patient has been informed that the visit may not be secure and acknowledged the information. I have explained the option of participating in a telephone or video visit. After being given an opportunity to ask questions and discuss this type of visit, the patient verbally consented to proceeding with the audio/visual visit. The patient understands that this service replaces an office visit and the patient may be billed and/or responsible for applicable copayments. History of Present Illness The patient, a 64-year-old male, presents for follow-up regarding sarcoidosis and chronic obstructive pulmonary disease (COPD). His last consultation occurred on 05/30/2024, during which no modifications were made to his treatment regimen, which includes Advair 230 mcg, Incruse, and albuterol. He continues to take prednisone 20 mg daily and Bactrim for pneumocystis prophylaxis. A few days ago, the patient experienced severe dorsalgia, which impaired his respiratory function and necessitated an emergency room visit. The ER diagnosed him with a COPD exacerbation and sepsis, and he was prescribed prednisone 40 mg, azithromycin 250 mg, and cefdinir 300 mg. His respiratory symptoms have improved with the administration of antibiotics and corticosteroids, although he continues to experience back pain. He remains on a daily dose of 20 mg prednisone. Presently, he reports experiencing dyspnea, occasional cough, and intermittent chest tightness, with no episodes of wheezing or pyrexia. He is requesting refills for his prednisone and Bactrim prescriptions from [facility]. Additionally, he requires further nebulizer treatments and requests that his nebulizer supplies be provided through [facility]. The patient has a history of vertebral issues, having undergone vertebroplasty involving the insertion of cement between vertebrae. He is scheduled to consult an net application support specialist on 12/20/2024. His participated in the telephone consultation today. Answers submitted by the patient for this visit: Pulmonology Questionnaire (Submitted on 12/11/2024) Chief Complaint: Primary symptoms Chronicity: chronic When did you first notice your symptoms?: more than 1 year ago How often do your symptoms occur?: constantly Since you first noticed this problem, how has it changed?: gradually worsening Do you have shortness of breath that occurs with effort or exertion?: Yes Do you have fatigue?: Yes Do you have shortness of breath when lying flat?: Yes Which of the following makes your symptoms worse?: animal exposure, any activity, change in weather, exposure to fumes, exposure to smoke, lying down, minimal activity, pollen Which of the following makes your symptoms better?: cold air, diuretics, ipratropium, oral steroids, rest, steroid inhaler Current Outpatient Medications Medication Instructions albuterol (Proventil;Ventolin) 90 mcg/actuation inhaler 2 puffs, inhalation, 4 times daily PRN albuterol 2.5 mg, nebulization, Every 4 hours PRN apixaban (ELIQUIS ORAL) Take by mouth. aspirin 81 mg EC tablet fluticasone propion-salmeteroL (Advair HFA) 230-21 mcg/actuation inhaler 2 puffs, inhalation, 2 times daily RT, Rinse mouth with water after use to reduce aftertaste and incidence of candidiasis. Do not swallow. furosemide (Lasix) 40 mg tablet 20 tablets, Every 24 hours losartan (COZAAR) 50 mg, Daily metoprolol succinate 25 mg capsule,sprinkle,ER 24hr 1 capsule, Every 24 hours potassium bicarb-citric acid 10 mEq tablet, effervescent 1 tablet, Every 24 hours potassium chloride ER (Micro-K) 10 mEq ER capsule 1 capsule, Every 24 hours predniSONE (DELTASONE) 20 mg, oral, Daily simvastatin (Zocor) 40 mg tablet 1 tablet, Every 24 hours sulfamethoxazole-trimethoprim (Bactrim DS,Septra DS) 800-160 mg tablet Take 1 tablet MW. Past Medical History: Diagnosis Date Emphysema of lung (CMS/HCC) Sarcoidosis Past Surgical History: Procedure Laterality Date CARDIAC CATHETERIZATION GALLBLADDER SURGERY WRIST SURGERY Right Family History Problem Relation Name Age of Onset Asthma Mother No Known Problems Father Social History Tobacco Use Smoking status: Never Smokeless tobacco: Current Types: Chew Vaping Use Vaping status: Never Used Substance Use Topics Alcohol use: Never Drug use: Never Allergies Allergen Reactions Eucalyptus Oil Other reaction(s): Unknown Ibuprofen Other reaction(s): kidney failure Ketorolac Tromethamine Other reaction(s): Unknown Menthol Other reaction(s): Unknown Tramadol Review of Systems Constitutional: Negative for chills, fatigue, fever and unexpected weight change. HENT: Negative for congestion, postnasal drip, rhinorrhea and sore throat. Respiratory: Positive for cough, chest tightness and shortness of breath. Negative for wheezing. Cardiovascular: Negative for chest pain and palpitations. Gastrointestinal: Negative for abdominal pain, constipation, diarrhea, nausea and vomiting. Genitourinary: Negative for decreased urine volume and hematuria. Musculoskeletal: Positive for myalgias. Negative for back pain and neck pain. Skin: Negative for rash. Neurological: Negative for dizziness and headaches. Psychiatric/Behavioral: Negative for suicidal ideas. The patient is not nervous/anxious. There were no vitals filed for this visit. Physical Exam Gen: Well-developed, well-nourished, 64 y.o. male who appears comfortable. HEENT: Normocephalic, atraumatic. Pupils equal, round. No nostril flaring. No nasal drainage. Face: No apparent frontal or maxillary sinus tenderness. Neck: Supple without jugular venous distension. Pulm: Unlabored breathing through nose. No congestion or wheezes. Ext: No cyanosis, clubbing, or edema noted. Skin: Warm, dry without rash. Lymph: No apparent submandibular, cervical, or supraclavicular lymphadenopathy. Neuro: Alert. Oriented to person, place, time. Psych: Mood/affect congruent. Problem List Items Addressed This Visit Infectious/Inflammatory Immunization counseling Respiratory Centrilobular emphysema (CMS/HCC) Overview Emphysematous changes were noted on prior chest imaging. These are consequence of secondhand smoke exposure. He has an MS phenotype, and his AAT level was normal at 110 mg/dL on 11/01/2016. AAT augmentation therapy is not indicated. Relevant Medications predniSONE (Deltasone) 20 mg tablet sulfamethoxazole-trimethoprim (Bactrim DS,Septra DS) 800-160 mg tablet Stage 3 severe COPD by GOLD classification ([facility]) Overview GOLD stage III, group E. PFTs from 07/16/2021 showed FEV1/FVC ratio 65%, postbronchodilator FEV1 42%, TLC 95%, RV 147%, and DLCO 65%. He was previously diagnosed with mild COPD at [facility]. Insurance does not cover Symbicortor Spiriva Respimat. Relevant Medications predniSONE (Deltasone) 20 mg tablet sulfamethoxazole-trimethoprim (Bactrim DS,Septra DS) 800-160 mg tablet ENT Allergic rhinitis due to animal hair and dander Overview Region 8 allergen panel was positive for cat dander on 11/01/2016, and his total serum IgE was 86. Relevant Medications predniSONE (Deltasone) 20 mg tablet Tobacco Second hand smoke exposure Overview Patient reports 15 years of secondhand smoke exposure. Non-smoker Overview Lifelong non-smoker. Smokeless tobacco use Overview Patient chews tobacco, and 1 can lasts a couple of days. Multisystem/Lupus/Sarcoid Sarcoidosis - Primary Overview Patient suffered multiple severe exacerbations from May [...] over the years, and when osteoporosis and vertebralcompression fractures were noted, I expressed concern that [...] center for evaluation and treatment. Patient deferred. Relevant Medications predniSONE (Deltasone) 20 mg tablet sulfamethoxazole-trimethoprim (Bactrim DS,Septra DS) 800-160 mg tablet Assessment & Plan 1. Sarcoidosis: Stable. Continues on prednisone 20 mg daily and Bactrim for pneumocystis prophylaxis. Refills for prednisone and Bactrim will be sent to pharmacy. Recommend annual ophthalmologic examination to assess for ocular involvement. 2. Chronic obstructive pulmonary disease (COPD), GOLD group B: Reports shortness of breath, occasional cough, and chest tightness but no wheezing or fever. Fortunately, symptoms are controlled on his current regimen. Continue Advair HFA 230/21 mcg 2 puffs twice daily. Advised mouth rinsing after use to avoid thrush. Continue Incruse 62.5 mcg 1 inhalation daily. Continue albuterol HFA/nebs every 6 hours as needed for shortness of breath, wheezing, cough. Prescriptions for albuterol nebulizer solution will be sent to [facility]. 3. Back pain: Reports severe back pain that has worsened, leading to difficulty breathing. It is conceivable thatchronic prednisone use has contributed to back pain, perhaps as a consequence of compression fracture. Ultimately, patient had opted to continue on prednisone therapy as its absence led to significant breathing issues. Has history of vertebroplasty. Has an upcoming appointment with an net application support specialist on 12/20/2024. 4. Immunization counseling: Annual influenza vaccination, RSV vaccination, and COVID-19 booster are recommended. PCV21 is due now as his last pneumococcal vaccination was on 09/16/2016. Follow-up: The patient will follow up in March 2025. Thomas Keen MD Pulmonology & Critical Care Medicine [facility] documented in this encounter Plan of Treatment Upcoming Encounters Date Type Department Care Team (Late st Contact Info) Description 03/12/2025 1:30 PM MAKE UP GIRL Office Visit PULMONOLOGY CLINIC MEDICAL OFFICE BUILDING [address] [phone] Kirill Keen MD [address] [place], [place] [address] documented as of this encounter Visit Diagnoses Diagnosis Sarcoidosis- Primary Stage 3 severe COPD by GOLD classification (CMS/HCC) Centrilobular emphysema (CMS/HCC) Allergic rhinitis due to animal hair and dander Allergic rhinitis due to animal (cat) (dog) hair and dander Smokeless tobacco use Second hand smoke exposure Accidental poisoning by second-hand tobacco smoke Non-smoker Immunization counseling documented in this encounter Care Teams Merchandising Director Relationship Specialty Start Date End Date Refugio Bedoya [facility] [address] [place] [address] [address] [place] [address] PCP - General 11/17/20 documented as of this encounter
--- OUTSIDE RECORDS SUMMARY | 2024-12-11 20:13 | XMS_ITS | Encounter Summary ---
[facility] Organization [facility] Address 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 Name Role Phone Unavailable Primary Care Provider Unavailabl e Reason for Visit * Reason Comments Back Pain Diagnosed with compr ession fractures last week Shortness of Breath Encounter Details Date Type Department Care Team (Late st Contact Info) Description 12/11/2024 8:13 PM CDT - 12/11/2024 10:35 PM CDT [facility] [address] [facility] [address] [place] [address] Nicolás Slaughter MD [address] [place] [address] [place] [address] Chronic obstructive pulmonary disease with acute exacerbation (CMS/HCC) (Primary Dx); Bilateral thoracic back pain, unspecified chronicity; Compression fracture of thoracic vertebra, unspecified thoracic vertebral level, initial encounter (CMS/HCC) Discharge Disposition: Home or Self Care Social History Tobacco Use Types Packs/Day Years Used Date Smoking Tobacco: Never Passive Smoke Exposure: Never Smokeless Tobacco: Current Chew Comments:Quit smoking: for 4 0 years Alcohol Use Standard Drinks/Week Comments No 0 (1 standard drink = 0.6 oz pur e alcohol) Feeling Safe Answer Date Recorded Are you in a relationship wi th someone who hurts you emotionally and/or physically? 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 Gender Identity Not on file Sexual Orientation Not on file documented as of this encounter Last Filed Vital Signs Vital Sign Reading Time Taken Comments Blood Pressure 135/86 12/11/2024 10:15 PM CDT Pulse 116 12/11/2024 10:15 PM CDT Temperature 36.7 C (98 F) 12/11/2024 8:23 PM CDT Respiratory Rate 20 12/11/2024 10:15 PM CDT Oxygen Saturation 97% 12/11/2024 10:15 PM CDT Inhaled Oxygen Concentration - - Weight 73.9 kg (163 lb) 12/11/2024 8:23 PM CDT Height 162.6 cm (5' 4 ) 12/11/2024 8:23 PM CDT Body Mass Index 27.98 12/11/2024 8:23 PM CDT documented in this encounter Discharge Instructions * Attachments The following attachments cannot be sent through Care Everywhere. * COPD (Zambian) * Compression Fracture: Spine ([place]ian) * Hydrocodone Combination Products ([place]ian) * Prednisolone ([place]ian) documented in this encounter Medications at Time of Discharge gabapentin (NEURONTIN) 100 mg capsule Take 100 mg by mouth 2 times daily. 5 HYDROcodone-aceta minophen (NORCO) 7.5-325 mg TabletIndications :Compression fracture of thoracic vertebra, unspecified thoracic vertebral level, initial encounter (CMS/[facility]) Take 1 Tablet by mouth every 4 hours as needed for Pain, Moderate. Max Daily Amount: 6 Tablets 20 Tablet 5 predniSONE (DELTASONE) 5 mg tablet 50 mg x 2 days 40 mg x 2 days 30 mg x 2 days 20 mg x 2 days 10 mg x 2 days 5 mg x 2 days 62 Tablet 5 metoprolol succinate (TOPROL XL) 25 mg Extended Release 24 hour tablet Take 25 mg by mouth 2 times daily. 1/2 tablet twice daily cyclobenzaprine (FLEXERIL) 10 mg tablet Take 1 Tablet (10 mg) by mouth 3 times daily as needed for Spasm or Pain. To be dispersed here 4 Tablet 5 busPIRone (BUSPAR) 10 mg tablet Take 10 mg by mouth 3 times daily as needed for Anxiety. levalbuterol (XOPENEX) 1.25 mg/0.5 mL Solution for Nebulization Take 0.5 mL (1.25 mg) by inhalation every 8 hours as needed for Shortness of Breath. 15 mL 5 ipratropium bromide (ATROVENT) 0.02 % Solution Take 2.5 mL (0.5 mg) by inhalation every 8 hours as needed for Shortness of Breath. 75 mL 5 dorzolamide-timol oL (COSOPT) 22.3-6.8 mg/mL solution Administer 1 Drop in right eye 2 times daily. 10 mL 5 brinzolamide-brim onidine (SIMBRINZA) 1-0.2 % Drops, Suspension Administer 1 Drop in right eye 2 times daily. 10 mL 5 aspirin (ECOTRIN EC) 81 mg Tablet, Delayed Release (E.C.) Take 81 mg by mouth. apixaban (ELIQUIS) 5 mg tablet Take 5 mg by mouth 2 times daily. empagliflozin (JARDIANCE ORAL) Take 1 Tablet by mouth daily. nitroglycerin (NITROSTAT) 0.4 mg Tablet, Sublingual Place 0.4 mg under tongue every 5 minutes as needed for Chest Pain. losartan (COZAAR) 50 mg tablet Take 50 mg by mouth daily. sulfamethoxazole- trimethoprim (BACTRIM DS) 800-160 mg tabletIndications :Chronic obstructive pulmonary disease, unspecified COPD type (CMS/HCC) Take 1 Tablet by mouth every other day. Takes Tuesday, Tue, Tuesday 1 Tablet 3 simvastatin (ZOCOR) 40 mg tablet Take 40 mg by mouth daily with supper. 0 furosemide (LASIX) 20 mg tablet Take 20 mg by mouth daily. 9 nebulizer Length of need 99 monthsNebulizer with compressor, Kit: Permanent Nebulizer Kit, 1 per 6 months, filters , areosol mask: No. Name of Medication: combivent. 1 Each 3 7 metoprolol tartrate (LOPRESSOR) 25 mg tablet Take 12.5 mg by mouth 2 times daily. 7 albuterol sulfate 90 mcg/Actuation inhaler Take 2 Puffs by inhalation see administration instructions PRN breathing difficulty . 7 documented as of this encounter ED Notes * Hallie James RCP - 12/11/2024 9:29 PM CDT EKG completed. Results given to Dr. Slaughter and scanned into [facility]. SVN: Duoneb 0.5-2.5mg/3ml given and tolerated well. * Ronel Nunez RN - 12/11/2024 8:28 PM CDT Partha Roe is a 64 y.o. male who arrives to the Emergency Department by private car. Chief Complaint Patient presents with Back Pain Diagnosed with compression fractures last week Shortness of Breath Patient states he is having mid to low back pain that has been ongoing and shortness of breath. Patient spouse reports he was admitted with sepsis last week at [facility] and diagnosed with compression fractures. Spouse reports patient is unable to control bowels, stating he know when he has to go but is unable to control it. Pain is 9/10. Patient is tachycardic and respirations are elevated but otherwise vital signs are normal, aaox4, DEVINE, behavior appropriate to circumstance, no acute distress at this time. Airway patent, self-maintained. Skin color normal for ethnicity, warm, dry and intact. ID band present. Patient in bed in low position with wheels locked. Patient informed of plan of care. Patient verbalized understanding and in agreement with plan of care, all questions answered. Comfort measures offered. spouse at bedside at this time. Monitors on and audible. Patient placed on continuous solder deposit operator, pulse ox and blood pressure monitoring. Call light at bedside. Patient encouraged to call with needs. Will continue to monitor. Weapons assessment performed. Education provided regarding facility weapon storage and securement policy. Partha Roe denied possession of any weapons or firearms at this time * Nicolás Slaughter MD - 12/11/2024 7:51 PM CDT HISTORY OF PRESENT ILLNESS Partha Roe, a 64 y.o. male presents to the ED with a Chief Complaint of Back Pain and Shortness of Breath Subjective This patient is a 64-year-old white male who presents to the emergency department complaining of back pain and shortness of breath. Patient states he typically gets short of breath due to his back pain. Patient fell a couple of months ago and sustained some compression fractures of his T-spine. He does not have any pain medication. Patient also has a history of COPD. REVIEW OF SYSTEMS Review of Systems Constitutional: Negative for appetite change, chills, diaphoresis, fatigue and fever. HENT: Negative for congestion, ear pain, postnasal drip, rhinorrhea, sinus pressure and sore throat. Eyes: Negative for pain and visual disturbance. Respiratory: Positive for shortness of breath. Negative for cough, chest tightness and wheezing. Cardiovascular: Negative for chest pain, palpitations and leg swelling. Gastrointestinal: Negative for abdominal distention, abdominal pain, blood in stool, constipation, diarrhea, nausea and vomiting. Genitourinary: Negative for decreased urine volume, difficulty urinating, dysuria, flank pain, frequency, hematuria, testicular pain and urgency. Musculoskeletal: Positive for back pain. Negative for arthralgias, joint swelling, myalgias, neck pain and neck stiffness. Skin: Negative for rash. Neurological: Negative for dizziness, seizures, syncope, speech difficulty, weakness, light-headedness, numbness and headaches. Hematological: Negative for adenopathy. Psychiatric/Behavioral: Negative for behavioral problems, confusion, decreased concentration, dysphoric mood, self-injury, sleep disturbance and suicidal ideas. The patient is not nervous/anxious. All other systems reviewed and are negative. PAST MEDICAL HISTORY REVIEWED MEDICAL: Patient has a past medical history of Acute on chronic cholecystitis (09/27/2012), Acute renal failure with tubular necrosis (09/12/2016), Acute respiratory failure with hypoxia (CMS/HCC) (09/12/2016), Allergic reaction caused by a drug (10/02/2012), Arthritis, Asthma, Blood clotting disorder, Chest pain (05/10/2024), Coronary artery disease, Deep vein thrombosis (DVT) ([facility]), Diabetes mellitus ([facility]), Emphysema lung ([facility]), ALICE (generalized anxiety disorder), HTN (hypertension), Hyperlipidemia, Injury of back, Malignant neoplasm ([facility]), Obstructive sleep apnea (11/12/2021), Osteop orosis, Retinal detachment, Sarcoidosis (2016), Severe sepsis ([facility]) (09/12/2016), Shortness of breath (09/28/2016), and Ventricular arrhythmia. SURGICAL: Patient has a past surgical history that includes coronary stent placement; ptca (2015); bronchoscopy (2017); pr laps surg cholecystectomy w/cholangiography (09/28/2012); pr excision malignant lesion f/e/e/n/l >4.0 cm (Left, 08/03/2021); pr adjt tis trns/reargmt f/c/c/m/n/a/g/h/f 10sqcm/< (Left, 08/03/2021); surgical other (Bilateral); pr cysto w/insert ureteral stent (Left, 02/06/2023); insert picc line (02/09/2023); pr cath plmt l hrt & arts w/njx & angio img s&i (Left, 05/11/2024); pr inj substitute pars plana/limbl w/wo aspir spx (Right, 06/28/2024); pr vitrectomy mchnl pars plna focal endolaser pc (Right, 06/28/2024); and retinal detachment repair (06/28/2024). FAMILY: Patient's family history includes Healthy in his brother, daughter, son, son, and son; Heart Disease in his brother; Other in his sister and sister; Respiratory Disease in his mother; Stroke in his father. SOCIAL: reports that he has never smoked. He has never been exposed to tobacco smoke. His smokeless tobaccouse includes chew. He reports that he does not drink alcohol and does not use drugs. No history on file. Social History Other Topics Concern Not on file ALLERGIES Ketorolac tromethamine, Eucalyptus, Ibuprofen, Menthol, and Tramadol HOME MEDICATIONS Discharge Medication List as of 12/11/2024 10:26 PM START taking these medications Details HYDROcodone-acetaminophen (NORCO) 7.5-325 mg Tablet Take 1 Tablet by mouth every 4 hours as needed for Pain, Moderate. Max Daily Amount: 6 Tablets, Disp-20 Tablet, R-0 CONTINUE these medications which have CHANGED Details predniSONE (DELTASONE) 5 mg tablet 50 mg x 2 days 40 mg x 2 days 30 mg x 2 days 20 mg x 2 days 10 mg x 2 days 5 mg x 2 days, Disp-62 Tablet, R-0, DANA CONTINUE these medications which have NOT CHANGED Details gabapentin (NEURONTIN) 100 mg capsule Take 100 mg by mouth 2 times daily. metoprolol succinate (TOPROL XL) 25 mg Extended Release 24 hour tablet Take 25 mg by mouth 2 times daily. 1/2 tablet twice daily cyclobenzaprine (FLEXERIL) 10 mg tablet Take 1 Tablet (10 mg) by mouth 3 times daily as needed for Spasm or Pain. To be dispersed here, Disp-4 Tablet, R-0 busPIRone (BUSPAR) 10 mg tablet Take 10 mg by mouth 3 times daily as needed for Anxiety. levalbuterol (XOPENEX) 1.25 mg/0.5 mL Solution for Nebulization Take 0.5 mL (1.25 mg) by inhalationevery 8 hours as needed for Shortness of Breath., Disp-15 mL, R-0 ipratropium bromide (ATROVENT) 0.02 % Solution Take 2.5 mL (0.5 mg) by inhalation every 8 hours as needed for Shortness of Breath., Disp-75 mL, R-0 dorzolamide-timoloL (COSOPT) 22.3-6.8 mg/mL solution Administer 1 Drop in right eye 2 times daily.,Disp-10 mL, R-0 brinzolamide-brimonidine (SIMBRINZA) 1-0.2 % Drops, Suspension Administer 1 Drop in right eye 2 times daily., Disp-10 mL, R-0 aspirin (ECOTRIN EC) 81 mg Tablet, Delayed Release (E.C.) Take 81 mg by mouth. apixaban (ELIQUIS) 5 mg tablet Take 5 mg by mouth 2 times daily. empagliflozin (JARDIANCE ORAL) Take 1 Tablet by mouth daily. nitroglycerin (NITROSTAT) 0.4 mg Tablet, Sublingual Place 0.4 mg under tongue every 5 minutes as needed for Chest Pain. losartan (COZAAR) 50 mg tablet Take 50 mg by mouth daily. sulfamethoxazole-trimethoprim (BACTRIM DS) 800-160 mg tablet Take 1 Tablet by mouth every other day. Takes Tuesday, Tue, TuesdayHome med, no prescriptionDisp-1 Tablet, R-0 simvastatin (ZOCOR) 40 mg tablet Take 40 mg by mouth daily with supper. furosemide (LASIX) 20 mg tablet Take 20 mg by mouth daily. nebulizer Length of need 99 monthsNebulizer with compressor, Kit: Permanent Nebulizer Kit, 1 per 6 months, filters , areosol mask: No. Name of Medication: combivent., Disp-1 Each, R-3 metoprolol tartrate (LOPRESSOR) 25 mg tablet Take 12.5 mg by mouth 2 times daily. albuterol sulfate 90 mcg/Actuation inhaler Take 2 Puffs by inhalation see administration instructions PRN breathing difficulty . Objective PHYSICAL EXAM INITIAL VS BP: (!) 149/78 (12/11/242022), Heart Rate: (!) 116 bpm (12/11/242022), Resp: 26 (12/11/242022), Pulse: (!) 116 (12/11/242022), Temp: 98 ??F (36.7 ??C) (12/11/242022), Temp src: Tympanic (12/11/242022), SpO2: 99 % (12/11/242022), Height: 5' 4 (162.6 cm) (12/11/242022), Weight: 73.9 kg (163 lb) (12/11/242022), BMI (Calculated): (!) 27.95 (12/11/242022) No LMP for male patient. Physical Exam Vitals and nursing note reviewed. Constitutional: General: He is in acute distress. Appearance: Normal appearance. He is not ill-appearing. HENT: Head: Normocephalic and atraumatic. Eyes: Conjunctiva/sclera: Conjunctivae normal. Pupils: Pupils are equal, round, and reactive to light. Cardiovascular: Rate and Rhythm: Normal rate and regular rhythm. Pulmonary: Effort: Pulmonary effort is normal. No respiratory distress. Breath sounds: Decreased breath sounds and wheezing present. Abdominal: General: Abdomen is flat. Bowel sounds are normal. Palpations: Abdomen is soft. Tenderness: There is no abdominal tenderness. Musculoskeletal: General: No tenderness. Normal range of motion. Comments: Diffuse tenderness of the thoracic spine. Skin: General: Skin is warm and dry. Neurological: General: No focal deficit present. Mental Status: He is alert and oriented to person, place, and time. Psychiatric: Mood and Affect: Mood normal. Behavior: Behavior normal. DIAGNOSTICS LAB: CBC WITH DIFFERENTIAL - Abnormal Result Value WBC 25.8 (*) RBC 4.08 (*) HEMOGLOBIN 12.8 (*) HEMATOCRIT 40.4 MCV 99.0 (*) MCH 31.4 MCHC 31.7 (*) RDW 16.4 (*) RDW-STDEV 59.6 (*) PLATELETS 298 MPV 10.3 NEUTROPHILS 89 (*) LYMPHOCYTES 2 (*) MONOCYTES 5 EOSINOPHILS 0 (*) BASOPHILS 0 IMMATURE GRANULOCYTES 4 NEUTROPHIL ABSOLUTE 23.02 (*) LYMPHOCYTE ABSOLUTE 0.44 (*) MONOCYTE ABSOLUTE 1.27 (*) EOSINOPHIL ABSOLUTE 0.02 (*) BASOPHILS ABSOLUTE 0.08 IMMATURE GRANULOCYTES ABSOLUTE 0.98 COMPREHENSIVE METABOLIC PANEL - Abnormal SODIUM 141 POTASSIUM 4.6 CHLORIDE 101 CO2 24 CALCIUM 9.4 BUN 25 (*) CREATININE 0.79 GLUCOSE 170 (*) TOTAL PROTEIN 6.4 (*) ALBUMIN 4.3 BILIRUBIN TOTAL 0.4 ALKALINE PHOSPHATASE 141 (*) AST 28 ALT 39 GFR >60 ANION GAP 16 TROPONIN BASELINE, 5TH GEN - Abnormal TROPONIN T, BASELINE 5TH GEN 51 (*) BRAIN NATRIURETIC PEPTIDE, BNP OR PROBNP - Normal PROBNP, N TERMINAL <36 RADIOLOGY: No orders to display EKG: PROCEDURES Procedures MEDICAL DECISION MAKING AND PLAN OF CARE Medical Decision Making EKG revealed sinus rhythm with no ST segment abnormalities. Chest x-ray reveals COPD. No infiltrates. CBC reveals a white blood cell count of 25.8. Patient states this has been chronically elevated for years. It is steadily increasing. CMP was normal. BNP less than 36. Troponin 51 which is within his normal range. Patient was given a DuoNeb treatment, 125 mg of Solu-Medrol IV, Dilaudid and Zofran. He is feeling better. He was subsequently discharged in stable condition with prescriptions for hydrocodone and prednisone burst and taper. Recommended he use his inhalers every 4 hours as needed. Follow-up with primary care provider for ongoing management. Amount and/or Complexity of Data Reviewed Labs: ordered. Radiology: ordered. ECG/medicine tests: ordered. Risk Prescription drug management. Clinical Scoring & Consults Medications Administered During the ED Stay from 12/11/20241950 to 12/12/20242114 Date/Time Order Dose Route Action 12/11/20242127 CDT ipratropium-albuteroL (DUONEB) 0.5 mg-3 mg(2.5 mg base)/3 mL inhalation solution 3 mL 3 mL Inhalation Given 12/11/20242143 CDT methylPREDNISolone sodium succinate (SOLU-Medrol) 125 mg in sterile water 2 mL injection 125 mg IV Given 12/11/20242139 CDT HYDROmorphone (PF) (DILAUDID) injection 0.5 mg 0.5 mg IV Given 12/11/20242143 CDT ondansetron (ZOFRAN) 4 mg/2 mL injection 4 mg 4 mg IV Given Discharge Medication List as of 12/11/2024 10:26 PM START taking these medications Details HYDROcodone-acetaminophen (NORCO) 7.5-325 mg Tablet Take 1 Tablet by mouth every 4 hours as needed for Pain, Moderate. Max Daily Amount: 6 Tablets, Disp-20 Tablet, R-0 CONTINUE these medications which have CHANGED Details predniSONE (DELTASONE) 5 mg tablet 50 mg x 2 days 40 mg x 2 days 30 mg x 2 days 20 mg x 2 days 10 mg x 2 days 5 mg x 2 days, Disp-62 Tablet, R-0, DANA CONTINUE these medications which have NOT CHANGED Details gabapentin (NEURONTIN) 100 mg capsule Take 100 mg by mouth 2 times daily. metoprolol succinate (TOPROL XL) 25 mg Extended Release 24 hour tablet Take 25 mg by mouth 2 times daily. 1/2 tablet twice daily cyclobenzaprine (FLEXERIL) 10 mg tablet Take 1 Tablet (10 mg) by mouth 3 times daily as needed for Spasm or Pain. To be dispersed here, Disp-4 Tablet, R-0 busPIRone (BUSPAR) 10 mg tablet Take 10 mg by mouth 3 times daily as needed for Anxiety. levalbuterol (XOPENEX) 1.25 mg/0.5 mL Solution for Nebulization Take 0.5 mL (1.25 mg) by inhalationevery 8 hours as needed for Shortness of Breath., Disp-15 mL, R-0 ipratropium bromide (ATROVENT) 0.02 % Solution Take 2.5 mL (0.5 mg) by inhalation every 8 hours as needed for Shortness of Breath., Disp-75 mL, R-0 dorzolamide-timoloL (COSOPT) 22.3-6.8 mg/mL solution Administer 1 Drop in right eye 2 times daily.,Disp-10 mL, R-0 brinzolamide-brimonidine (SIMBRINZA) 1-0.2 % Drops, Suspension Administer 1 Drop in right eye 2 times daily., Disp-10 mL, R-0 aspirin (ECOTRIN EC) 81 mg Tablet, Delayed Release (E.C.) Take 81 mg by mouth. apixaban (ELIQUIS) 5 mg tablet Take 5 mg by mouth 2 times daily. empagliflozin (JARDIANCE ORAL) Take 1 Tablet by mouth daily. nitroglycerin (NITROSTAT) 0.4 mg Tablet, Sublingual Place 0.4 mg under tongue every 5 minutes as needed for Chest Pain. losartan (COZAAR) 50 mg tablet Take 50 mg by mouth daily. sulfamethoxazole-trimethoprim (BACTRIM DS) 800-160 mg tablet Take 1 Tablet by mouth every other day. Takes Tuesday, Tue, TuesdayHome med, no prescriptionDisp-1 Tablet, R-0 simvastatin (ZOCOR) 40 mg tablet Take 40 mg by mouth daily with supper. furosemide (LASIX) 20 mg tablet Take 20 mg by mouth daily. nebulizer Length of need 99 monthsNebulizer with compressor, Kit: Permanent Nebulizer Kit, 1 per 6 months, filters , areosol mask: No. Name of Medication: combivent., Disp-1 Each, R-3 metoprolol tartrate (LOPRESSOR) 25 mg tablet Take 12.5 mg by mouth 2 times daily. albuterol sulfate 90 mcg/Actuation inhaler Take 2 Puffs by inhalation see administration instructions PRN breathing difficulty . LAST VS BP: 135/86 (12/11/242214), Heart Rate: (!) 113 bpm (12/11/242214), Resp: 20 (12/11/242214), Pulse: (!) 116 (12/11/242214), Temp: 98 ??F (36.7 ??C) (12/11/242022), Temp src: Tympanic (12/11/242022), SpO2: 97 % (12/11/242214) CLINICAL IMPRESSION Diagnoses Diagnosis Comment Added By Time Added Chronic obstructive pulmonary disease with acute exacerbation ([facility]) [J44.1] Nilda Slaughter MD 12/11/2024 10:21 PM Bilateral thoracic back pain, unspecified chronicity [M54.6] Nicolás Slaughter MD 12/11/2024 10:22 PM Compression fracture of thoracic vertebra, unspecified thoracic vertebral level, initial encounter ([facility]) [S22.000A] Nicolás Slaughter MD 12/11/2024 10:22 PM DISPOSITION, EDUCATION AND MEDICATION RECONCILIATION Medications reconciled. See after visit summary for patient education on discharged patients. ED Disposition ED Disposition Discharge Condition Stable User Nicolás Slaughter MD Date/Time TueDec 11, 2024 10:21 PM Comment -- ATTESTATION STATEMENTS documented in this encounter Plan of Treatment Upcoming Encounters Date Type Department Care Team (Late st Contact Info) Description 01/11/2025 10:45 AM CDT Appointment [facility] Laboratory Services [address] [address] Jose Hughes MD [address] [address] 01/18/2025 1:20 PM CDT Office Visit [facility] [place] [address] [address] Jose Hughes MD [address] [address] documented as of this encounter Procedures Procedure Name Priority Date/Time Associated Diagnosis Comments TROPONIN BASELINE, 5TH GEN Stat 12/11/2024 9:36 PM CDT CBC WITH DIFFERENTIAL Stat 12/11/2024 9:36 PM CDT BRAIN NATRIURETIC PEPTIDE, BNP OR PROBNP Stat 12/11/2024 9:36 PM CDT COMPREHENSIVE METABOLIC PANEL Stat 12/11/2024 9:36 PM CDT XR CHEST PA OR AP 1 VW Stat 9:25 PM CDT documented in this encounter Results * (ABNORMAL) TROPONIN BASELINE, 5TH GEN (12/11/2024 9:36 PM CDT) TROPONIN T, BASELINE 5TH GEN 51(H) <=15 ng/L 12/11/2024 10:09 PM CDT [facility] Blood BLOOD SPECIMEN / Unknown Collection / Unknown 12/11/2024 9:36 PM CDT 12/11/2024 9:48 PM CDT Narrative [facility] - 12/11/2024 10:09 PM CDT Troponin elevated. us Nicolás Slaughter MD CHEMISTRY ORDERABLES Fin al Result [facility] CLIA # [id number] [address] [place] [id number] * BRAIN NATRIURETIC PEPTIDE, BNP OR PROBNP (12/11/2024 9:36 PM CDT) PROBNP, N TERMINAL <36 0 - 125 pg/mL 12/11/2024 10:09 PM CDT [facility] Comment: INTERPRETIVE COMMENT based on diagnosis: [...] 900 pg/mL >75 years: >1800 pg/mL Blood BLOOD SPECIMEN / Unknown Collection / Unknown 12/11/2024 9:36 PM CDT 12/11/2024 9:48 PM CDT us Nicolás Slaughter MD CHEMISTRY ORDERABLES Fin al Result [facility] CLIA # [id number] [address] [place] [id number] * (ABNORMAL) COMPREHENSIVE METABOLIC PANEL (12/11/2024 9:36 PM CDT) SODIUM 141 136 - 145 mmol/L 12/11/2024 10:09 PM [facility] POTASSIUM 4.6 3.5 - 5.1 mmol/L 12/11/2024 10:09 PM [facility] CHLORIDE 101 98 - 107 mmol/L 12/11/2024 10:09 PM [facility] CO2 24 22 - 29 mmol/L 12/11/2024 10:09 PM [facility] CALCIUM 9.4 8.8 - 10.2 mg/dL 12/11/2024 10:09 PM [facility] BUN 25(H) 8 - 23 mg/dL 12/11/2024 10:09 PM [facility] CREATININE 0.79 0.67 - 1.17 mg/dL 12/11/2024 10:09 PM [facility] GLUCOSE 170(H) 74 - 99 mg/dL 12/11/2024 10:09 PM [facility] TOTAL PROTEIN 6.4(L) 6.6 - 8.7 g/dL 12/11/2024 10:09 PM [facility] ALBUMIN 4.3 3.5 - 5.2 g/dL 12/11/2024 10:09 PM [facility] BILIRUBIN TOTAL 0.4 0.0 - 1.2 mg/dL 12/11/2024 10:09 PM [facility] ALKALINE PHOSPHATASE 141(H) 40 - 129 U/L 12/11/2024 10:09 PM [facility] AST 28 0 - 50 U/L 12/11/2024 10:09 PM [facility] ALT 39 0 - 50 U/L 12/11/2024 10:09 PM [facility] GFR >60 >=60 mL/min/1.7 3 sq meter 12/11/2024 10:09 PM [facility] Comment:eGFR calculated with 2020 CKD-EPI equation. Vegetarian diet, extremely high or low muscle mass, and may affect results. Cystatin C with Glomerular Filtration Rate is a suitable alternative for these patients. ANION GAP 16 5 - 20 mmol/L 12/11/2024 10:09 PM [facility] Blood BLOOD SPECIMEN / Unknown Collection / Unknown 12/11/2024 9:36 PM CDT 12/11/2024 9:48 PM CDT Nicolás Slaughter MD CHEMISTRY ORDERABLES [facility] al Result [facility] [id number] [address] [place] [address] * (ABNORMAL) CBC WITH DIFFERENTIAL (12/11/2024 9:36 PM CDT) WBC 25.8(H) 4.2 - 9.1 K/uL 12/11/2024 9:55 PM [facility] RBC 4.08(L) 4.63 - 6.08 M/uL 12/11/2024 9:55 PM [facility] HEMOGLOBIN 12.8(L) 13.7 - 17.5 g/dL 12/11/2024 9:55 PM [facility] HEMATOCRIT 40.4 40.1 - 51.0 % 12/11/2024 9:55 PM [facility] MCV 99.0(H) 79.0 - 92.2 fL 12/11/2024 9:55 PM [facility] MCH 31.4 25.7 - 32.2 pg 12/11/2024 9:55 PM [facility] MCHC 31.7(L) 32.3 - 36.5 g/dL 12/11/2024 9:55 PM [facility] RDW 16.4(H) 11.0 - 14.5 % 12/11/2024 9:55 PM [facility] RDW-STDEV 59.6(H) 36.9 - 56.9 fL 12/11/2024 9:55 PM [facility] PLATELETS 298 130 - 400 K/uL 12/11/2024 9:55 PM [facility] MPV 10.3 10.0 - 14.8 fL 12/11/2024 9:55 PM [facility] NEUTROPHILS 89(H) 34 - 68 % 12/11/2024 9:55 PM [facility] LYMPHOCYTES 2(L) 22 - 53 % 12/11/2024 9:55 PM [facility] MONOCYTES 5 5 - 12 % 12/11/2024 9:55 PM [facility] EOSINOPHILS 0(L) 1 - 7 % 12/11/2024 9:55 PM [facility] BASOPHILS 0 0 - 1 % 12/11/2024 9:55 PM [facility] IMMATURE GRANULOCYTES 4 % 12/11/2024 9:55 PM [facility] NEUTROPHIL ABSOLUTE 23.02(H) 1.78 - 5.38 K/uL 12/11/2024 9:55 PM [facility] LYMPHOCYTE ABSOLUTE 0.44(L) 1.20 - 3.40 K/uL 12/11/2024 9:55 PM [facility] MONOCYTE ABSOLUTE 1.27(H) 0.30 - 0.82 K/uL 12/11/2024 9:55 PM CDT [facility] EOSINOPHIL ABSOLUTE 0.02(L) 0.04 - 0.54 K/uL 12/11/2024 9:55 PM CDT [facility] BASOPHILS ABSOLUTE 0.08 0.01 - 0.08 K/uL 12/11/2024 9:55 PM CDT [facility] IMMATURE GRANULOCYTES ABSOLUTE 0.98 K/uL 12/11/2024 9:55 PM CDT [facility] Blood BLOOD SPECIMEN / Unknown Collection / Unknown 12/11/2024 9:36 PM CDT 12/11/2024 9:48 PM CDT us Nicolás Slaughter MD HEMATOLOGY ORDERABLES Fi nal Result [facility] CLIA # [id number] [address] [place] [id number] * XR CHEST PA OR AP 1 VW (12/11/2024 9:25 PM CDT) Anatomical Region Laterality Modality Chest Computed Radiogr aphy 12/11/2024 9:25 PM CDT Impressions 12/11/2024 11:15 PM CDT IMPRESSION: See below. EXAMINATION: XR CHEST PA OR AP 1 VW CLINICAL HISTORY: ASSOCIATED DIAGNOSIS: Shortness of Breath SOB ORDERING PROVIDER: NICOLÁS SLAUGHTER TECHNCESAR NOTE: COMPARISON: September 2024 FINDINGS/IMPRESSION: Lines, tubes, and devices: None. Low lung volumes with bronchovascular crowding and bibasilar atelectasis. Patient is rotated. No significant effusion or pneumothorax. Heart size is stable. Postsurgical changes of the right axilla. Postprocedure changes from thoracic vertebral body vertebroplasty. Narrative Procedure Note Kannan Hansen MD - 12/11/2024 IMPRESSION: See below. EXAMINATION: XR CHEST PA OR AP 1 VW CLINICAL HISTORY: ASSOCIATED DIAGNOSIS: Shortness of Breath SOB ORDERING PROVIDER: NICOLÁS SLAUGHTER TECHNCESAR NOTE: COMPARISON: September 2024 FINDINGS/IMPRESSION: Lines, tubes, and devices: None. Low lung volumes with bronchovascular crowding and bibasilar atelectasis. Patient is rotated. No significant effusion or pneumothorax. Heart size is stable. Postsurgical changes of the right axilla. Postprocedure changes from thoracic vertebral body vertebroplasty. Nioclás Slaughter MD DIAGNOSTIC IMAGING ORDER VON Final Result documented in this encounter Visit Diagnoses Diagnosis Chronic obstructive pulmonary disease with acute exacerbation (CMS/HCC)- Primary Obstructive chronic bronchitis with exacerbation Bilateral thoracic back pain, unspecified chronicity Compression fracture of thoracic vertebra, unspecified thoracic vertebral level, initial encounter ([facility]) documented in this encounter Administered Medications Inactive Administered Medications - up to 3 most recent administrations Medication Order MAR Action Action Date Dose Rate Site HYDROmorphone (PF) (DILAUDID) injection 0.5 mg 0.5 mg, IV, ONE TIME ONLY, 1 dose, On Tue12/11/24 at 2130, Routine Given 12/11/2024 9:40 PM CDT 0.5 mg ipratropium-albuteroL (DUONEB) 0.5 mg-3 mg(2.5 mg base)/3 mL inhalation solution 3 mL 3 mL, Inhalation, ONE TIME ONLY RESPIRATORY, 1 dose, On Tue12/11/24 at 2130, Stat Given 12/11/2024 9:28 PM CDT 3 mL methylPREDNISolone sodium succinate (SOLU-Medrol) 125 mg in sterile water 2 mL injection 125 mg, IV, ONE TIME ONLY, 1 dose, On Tue12/11/24 at 2130, Routine Given 12/11/2024 9:44 PM CDT 125 mg ondansetron (ZOFRAN) 4 mg/2 mL injection 4 mg 4 mg, IV, ONE TIME ONLY, 1 dose, On Tue12/11/24 at 2130, Stat Given 12/11/2024 9:44 PM CDT 4 mg documented in this encounter Active and Recently Administered Medications Times are shown in CDT. Scheduled Medication Order 12/09/2024 12/10/2024 12/11/2024 HYDROmorphone (PF) (DILAUDID) injection 0.5 mg (COMPLETED) 0.5 mg, IV, ONE TIME ONLY, 1 dose, On Tue12/11/24 at 2130, Routine 2140 (Given - Provid er: Ronel Nunez RN) ipratropium-albuteroL (DUONEB) 0.5 mg-3 mg(2.5 mg base)/3 mL inhalation solution 3 mL (COMPLETED) 3 mL, Inhalation, ONE TIME ONLY RESPIRATORY, 1 dose, On Tue12/11/24 at 2130, Stat 2127 (Given - Provid er: Hallie James RCP) methylPREDNISolone sodium succinate (SOLU-Medrol) 125 mg in sterile water 2 mL injection (COMPLETED) 125 mg, IV, ONE TIME ONLY, 1 dose, On Tue12/11/24 at 2130, Routine 2143 (Given - Provid er: Ronel Nunez RN) ondansetron (ZOFRAN) 4 mg/2 mL injection 4 mg (COMPLETED) 4 mg, IV, ONE TIME ONLY, 1 dose, On Tue12/11/24 at 2130, Stat 2143 (Given - Provid er: Ronel Nunez RN) documented in this encounter
[2024-12-18] VITALS (44 sets, daily range): BP systolic 101–155; BP diastolic 69–108; PULSE 99–138; RESP 12–30; TEMP 36.6–36.7; O2SAT 95–100; BMI 26.4
--- NOTE | 2024-12-18 06:09 | XR_ITS ---
WS: [id number] XR chest 1V portable [id number] REASON FOR EXAM: dyspnea/cough FINDINGS: The chest is unchanged compared to previous examination 12/05/2024. Moderate tortuosity and ectasia of the thoracic aorta with normal heart size. Calcified granulomatous disease in both hemithoraces. No acute pulmonary parenchymal or pleural abnormality. Chronic pleural and pleural pericardial thickening. XR/XR chest 1V portable [id number] IMPRESSION: Stable chest with no acute abnormality.
--- NOTE | 2024-12-18 06:09 | ECG_ITS ---
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 Measurements Intervals [place] Rate: 131 P: 208 AL: 154 QRS: 28 QRSD: 78 T: 44 QT: 277 QTc: 410 Interpretive Statements Possible sinus tachycardia ABNORMAL RHYTHM ECG Compared to ECG 12/05/2024 02:46:58 Ventricular premature complex(es) now present Sinus rhythm no longer prese. Heavy baseline artifacts; Need to repeat the study. Electronically Signed On 12-18-2024 17:53:50 CDT by Tunde Browne M.D. [id number]
--- OUTSIDE RECORDS SUMMARY | 2024-12-18 06:10 | XMS_ITS | Clinical Summary ---
Author Organization [facility] Address [address] [place] [address] Phone Care Team Providers Care Customs House Broker Name Role Phone Refugio Bedoya Primary Care Provider [phone] Allergies Active Allergy Reactions Criticality Noted Date Comments Eucalyptus Oil 03/11/2020 Other reaction(s): Unknown Ibuprofen 01/03/2018 Other reaction(s): kidney failure Ketorolac Tromethamine 03/11/2020 Other reaction(s): Unknown Menthol 03/11/2020 Other reaction(s): Unknown Tramadol 01/03/2018 Medications metoprolol succinate 25 mg capsule,sprinkle, ER 24hr 1 capsule 1 (one) time each [...] each day at the same time. Active losartan (Cozaar) 50 mg tablet Take 50 mg by mouth 1 (one) time each day. Active fluticasone propion-salmetero L (Advair HFA) 230-21 mcg/actuation inhalerIndication s:History of COPD Inhale 2 puffs 2 (two) times a day. Rinse mouth with water after use to reduce aftertaste and incidence of candidiasis. Do not swallow. 12 g 024 Active Additional Information Patient not taking.Reported on 05/30/2024 apixaban (ELIQUIS ORAL) Take by mouth. Activ e albuterol (Proventil;Ventol in) 90 mcg/actuation inhalerIndication s:Sarcoidosis,Sta ge 3 severe COPD by GOLD classification ([facility]) Inhale 2 puffs 4 (four) times a day if needed for wheezing or shortness of breath. 18 g 025 Active albuterol 2.5 mg /3 mL (0.083 %) nebulizer solutionIndicatio ns:Chronic obstructive pulmonary disease, unspecified COPD type ([facility]) Take 3 mL (2.5 mg total) by nebulization every 4 (four) hours if needed for wheezing. 360 mL 2024 Active predniSONE (Deltasone) 20 mg tabletIndications :Sarcoidosis Take 1 tablet (20 mg total) by mouth 1 (one) time each day. 30 tablet Active sulfamethoxazole- trimethoprim (Bactrim DS,Septra DS) 800-160 mg tabletIndications :Sarcoidosis Take 1 tablet MWF. 12 tablet Active lisinopriL (Prinivil, Zestril) 5 mg tablet Take 5 mg by mouth 1 (one) time each day. 2024 Discontinued sulfamethoxazole- trimethoprim (Bactrim DS,Septra DS) 800-160 mg tabletIndications :Sarcoidosis Take 1 tablet MWF. 12 tablet 025 2024 Discontinued(R eorder) predniSONE (Deltasone) 20 mg tabletIndications :Sarcoidosis Take 1 tablet (20 mg total) by mouth 1 (one) time each day. 30 tablet 2024 Discontinued(R eorder) Hospital, Clinic, or Other Facility Administered Medication [...] loss. Assessment & Plan (06/01/2022 2:02 PM ENGINEERING CLERK): Body mass index is 29.62 kg/m . Discuss importance of a healthy diet, routine exercise, and weight loss. Assessment & Plan (03/18/2022 1:29 PM ENGINEERING CLERK): Body mass index is 27.29 kg/m . Discuss importance of a healthy diet, routine exercise, and weight loss. Assessment & Plan (11/12/2021 5:11 PM CDT): Body mass index is 29.29 kg/m . Discuss importance of a healthy diet, routine exercise, and weight loss. Obstructive sleep apnea 11/12/2021 Overview (03/18/2022): Apneic episodes are noted during his recent admission to [facility]. Patient endorses unrefreshing sleep and snoring. He scored a 7 on the Siler Sleepiness Scale. Sleep study was ordered at his November 2021 visit, but multiple appointments were canceled by the patient. Assessment & Plan (03/18/2022 1:31 PM ENGINEERING CLERK): Patient should avoid driving while sleepy and [...] days. Assessment & Plan (05/30/2024 2:27 PM ENGINEERING CLERK): Cough, sputum production, shortness of breath, dysphagia, [...] cessation. Assessment & Plan (05/03/2023 3:04 PM ENGINEERING CLERK): Cough, sputum production, shortness of breath, dysphagia, [...] cessation. Assessment & Plan (06/01/2022 2:03 PM ENGINEERING CLERK): Advise cessation. Allergic rhinitis due to animal hair and dander 06/17/2021 Overview (01/18/2024): Region 8 allergen panel was positive for cat dander on 11/01/2016, and his total serum IgE was 86. Assessment & Plan (05/30/2024 2:12 PM ENGINEERING CLERK): Recommend Rosanne, Claritin, Zyrtec, or Xyzal for symptomatic relief. Assessment & Plan (01/18/2024 1:40 PM CDT): Recommend Rosanne, Claritin, Zyrtec, or Xyzal for symptomatic relief. Assessment & Plan (09/20/2023 10:35 AM CDT): Recommend Rosanne, Claritin, Zyrtec, or Xyzal for symptomatic relief. Assessment & Plan (05/03/2023 3:04 PM ENGINEERING CLERK): Recommend Rosanne, Claritin, Zyrtec, or Xyzal for symptomatic relief. Assessment & Plan (12/28/2022 1:10 PM CDT): Recommend Rosanne, Claritin, Zyrtec, or Xyzal for symptomatic relief. Assessment & Plan (08/31/2022 1:30 PM CDT): Recommend Rosanne, Claritin, Zyrtec, or Xyzal for symptomatic relief. Assessment & Plan (06/01/2022 2:03 PM ENGINEERING CLERK): Recommend Rosanne, Claritin, Zyrtec, or Xyzal for symptomatic relief. Assessment & Plan (03/18/2022 1:29 PM ENGINEERING CLERK): Recommend Rosanne, Claritin, Zyrtec, or Xyzal for [...] exercise, and weight loss. Immunization counseling 06/17/2021 Assessment & Plan (06/17/2021 2:24 PM CDT): Despite extensive counseling, patient refuses influenza vaccination. Received Pneumovax in the past. Recommend COVID-19 vaccination. Stage 3 severe COPD by GOLD classification 06/17 Overview (12/28/2022): GOLD stage III, group E. PFTs from 07/16/2021 showed FEV1/FVC ratio 65%, postbronchodilator FEV1 42%, TLC 95%, RV 147%, and DLCO 65%. He was previously diagnosed with mild COPD at [facility]. Insurance does not cover Symbicort or Spiriva Respimat. Assessment & Plan (05/30/2024 2:12 PM ENGINEERING CLERK): Continue Advair HFA 230/21 mcg 2 puffs [...] cough. Assessment & Plan (05/03/2023 3:10 PM ENGINEERING CLERK): Continue Advair HFA 230/21 mcg 2 puffs [...] cough. Assessment & Plan (06/01/2022 2:02 PM ENGINEERING CLERK): Continue Advair HFA 230/21 mcg 2 puffs twice daily. Advised mouth rinsing after use to avoid thrush. Continue Incruse 62.5 mcg 1 inhalation daily. Continue albuterol HFA/nebs 4 times daily as needed for shortness of breath, wheezing, cough. Assessment & Plan (03/18/2022 1:29 PM ENGINEERING CLERK): Continue Advair HFA 230/21 mcg 2 puffs [...] deferred. Assessment & Plan (05/30/2024 2:12 PM ENGINEERING CLERK): Prednisone 20 mg daily with Bactrim MWF [...] involvement. Assessment & Plan (05/03/2023 3:04 PM ENGINEERING CLERK): Continue prednisone 20 mg daily with Bactrim [...] prophylaxis. Assessment & Plan (06/01/2022 2:05 PM ENGINEERING CLERK): Continue prednisone 20 mg daily with Bactrim DS MWF for pneumocystis prophylaxis. Assessment & Plan (03/18/2022 1:41 PM ENGINEERING CLERK): Discussed alternative steroid sparing agents due to [...] Encounters Date Type Department Care Team Description 12/11/2024 1:45 PM CDT Telemedicine [facility] [address] [place] [phone] Kirill Keen MD Sarcoidosis (Primary Dx); Stage 3 severe COPD by GOLD classification (CMS/HCC); Centrilobular emphysema (CMS/HCC); Allergic rhinitis due to animal hair and dander; Smokeless tobacco use; Second hand smoke exposure; Non-smoker; Immunization counseling 11/27/2024 Telephone [facility] [address] [place] [phone] Kirill Keen MD Reschedule 10/10/2024 Telephone [facility]UL[facility]OLOGY [facility] MED[facility] OFF[facility] BUILD[facility] [address] [place] [phone] Patrica Preston RN 10/10/2024 Telephone [facility]Y [facility] MEDICAL OFFICE BUILDING [address] [place] [phone] Patrica Preston RN from Last 3 Months [...] Recorded Patient Health Questionnaire-2 Score 0 05/30/2024 [facility] - Mental Health Answer Date Recorde [...] Comments Blood Pressure 115/75 05/30/2024 2:13 PM ENGINEERING CLERK Pulse 84 05/30/2024 2:13 PM ENGINEERING CLERK Temperature 36.7 C (98 F) 05/30/2024 2:13 PM ENGINEERING CLERK Respiratory Rate 20 05/30/2024 2:13 PM ENGINEERING CLERK Oxygen Saturation 97% 05/30/2024 2:13 PM ENGINEERING CLERK Inhaled Oxygen Concentration - - Weight 71.7 kg (158 lb) 05/30/2024 2:13 PM ENGINEERING CLERK Height 165.1 cm (5' 5 ) 05/30/2024 2:13 PM ENGINEERING CLERK Body Mass Index 26.29 05/30/2024 2:13 PM ENGINEERING CLERK Plan of Treatment Upcoming Encounters Date Type Department Care Team (Late st Contact Info) Description 03/12/2025 1:30 PM ENGINEERING CLERK Office Visit [facility] BUILDING [address] [place] [address] [phone] [place] [address] [place] [address] [place] [phone] Health Maintenance Due Date Last Done Comments CT Colonography 1960 Colonoscopy 1960 Colorectal Cancer Screening 1960 Creatinine Level 1960 Diabetes: Hemoglobin A1C 1960 Echocardiogram 1960 FIT-DNA 1960 FIT 1960 FOBT 1960 Potassium Level 1960 Sigmoidoscopy 1960 MMR Vaccines (1 of 1 - Standard series) 1963 COVID-19 Vaccine (#1) 1967 DTaP,Tdap,and Td Vaccines (1 - Tdap) 1969 Diabetes: Foot Exam 01/18/1972 Varicella Vaccines (1 of 2 - 13+ 2-dose series) 1975 Social Drivers of Health (SDoH) 01/18/1980 Hepatitis A Vaccines (1 of 2 - Risk 2-dose series) 1981 Zoster Vaccines (1 of 2) 1981 Pneumococcal Vaccine: 50+ Years (3 of 3 - PCV) 09/16/2017 09/16/2016, 10/02/2015 Pneumococcal Vaccine (3 of 3 - PCV) 09/16/2017 09/16/2016, 10/02/2015 Hepatitis B Vaccines (1 of 3 - Risk 3-dose series) 2022 RSV Vaccines (1 - Risk 60-74 years 1-dose series) 2022 Medicare Initial AWV [id number] 02/02/2022 Influenza Vaccine (#1) 2024 Depression Screening 05/31/2025 05/30/2024 Diabetes: Retinopathy Screening 06/26/2026 06/26/2024 HIB Vaccines Aged Out No longer eligi [...] complete this topic Insurance MEDICARE Care Teams Customs House Broker Relationship Specialty Start Date End Date Refugio Bedoya [address] ([place]) [address] [place] [address] PCP - General 11/17/20
--- OUTSIDE RECORDS SUMMARY | 2024-12-18 06:10 | XMS_ITS | Clinical Summary ---
Author Organization [facility] Building A Address [address] [place] [address] Care Team Providers Care Psychology Instructor Name Role Phone Migue Leo MD Unavailable Wally Manuel MD Unavailable Luis Templeton MD Unavailable [phone] Natalia Alvarado NP Primary Care Provider [phone] Allergies Active Allergy Reactions Criticality Noted Date [...] CDT - 09/21/2024 8:08 PM CDT Emergency [facility] [address] [place] [phone] Audrey Lundy MD Fall, initial encounter [...] often do you attend chur ch or restorationism services? 1 to 4 times per year 11/02/2021 Do you belong to any clubs o r organizations such as uatsdin groups, unions, fraternal or athletic groups, or [...] cm (5' 6 ) 06/08/2023 6:30 AM RAG BOILER Body Mass Index 26.47 06/08/2023 6:30 AM RAG BOILER Plan of Treatment Health Maintenance Due Date [...] 07/09/2015, 04/09/2015 Medical Devices Implanted Type Area Apparel Manager Device Identifier Shelf Expiration Date Model / Serial / Lot ROOOMERS [employer] Hv [employer] Without Needle Delivery System Kit Bone [id number] - [id number] - [id number] Implanted:Qty: 1 on 11/06/2021 by Wally Manuel MD at [facility] [employer] 09/02/2024 [id number] / [id number] / [id number] Procedures Procedure Name Priority Date/Time Associated Diagnosis Comments POCT GLUCOSE DEVICE Routine 09/21/2024 4 :53 PM CDT from Last 3 Months Results * (ABNORMAL) POCT glucose (09/21/2024 4:53 PM CDT) [facility] Glucose, POC 240(H) 70 - 199 mg/dL Comment: Reference data Fasting Reference Interval 0 days to 3 Days 50-99 mg/dL 3 Days to Adult 70-99 mg/dL Current reference data last reviewed 2015 POC Performer [id number] YINA Mckeon [facility]) Glucose comment 1 RN/MD Notified MELISSA [facility] Blood 09/21/2024 4:53 PM CDT 09/21/2024 4:53 PM CDT us Notinfile Unknown LAB POCT ORDERABLES - DEVICE F inal Result [facility] ([facility] [address] [place] [address] from Last 3 Months Insurance [place] [employer] MED[place] MEDICARE [facility] MEDICARE [place] [employer] Advance Directives For more information, please contact: [phone] * Full Code (Latest Code Status on File) Date Activated Date Inactivated Comments 11/01/2021 12:13 PM 11/06/2021 8:41 PM Care Teams Psychology Instructor Relationship Specialty Start Date End Date Natalia Alvarado NP [address] [facility] [address] [place] [address] PCP - General Nurse Practitioner 09/21/24 Migue Leo MD [address] [place] [address] Consulting Physician Pulmonary Disease 11/06/21 Wally Manuel MD [address] [place] [address] Anesthesiologist Anesthesiology 11/06/21 Luis Templeton MD [address] [facility] [place] [address] Consulting Physician Urology 06/08/23
--- OUTSIDE RECORDS SUMMARY | 2024-12-18 06:10 | XMS_ITS | Encounter Summary ---
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 Gender Identity Not on file Sexual Orientation Not on file documented as of this encounter Plan of Treatment Upcoming Encounters Date Type Department Care Team ( Contact Info) Description 01/11/2025 10:45 AM CDT Appointment [facility] Laboratory Services [address] [facility] [address] [place] [address] Jose Hughes MD [address] [phone] 01/18/2025 1:20 PM CDT Office Visit [facility] Cancer [facility] H[facility]ology [place] [address] [phone] Jose Hughes MD [address] [phone] documented as of this encounter Visit Diagnoses Not on filedocumented in this encounter
--- OUTSIDE RECORDS SUMMARY | 2024-12-18 06:10 | XMS_ITS | Encounter Summary ---
Author Organization [facility] Address 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 Cancer and Hematology [place] [address] [phone] Jose Hughes MD [address] [phone] documented as of this encounter Visit Diagnoses Not on filedocumented in this encounter
--- OUTSIDE RECORDS SUMMARY | 2024-12-18 06:10 | XMS_ITS | Encounter Summary ---
Author Organization [facility] Address [address] [place] [address] Phone Care Team Providers Care Washery Engineer Name Role Phone Refugio Bedoya Primary Care Provider [phone] Reason for Visit * Reason Comments Med Refill Encounter Details Date Type Department Care Team (Late st Contact Info) Description 10/02/2022 Refill [facility] MED[facility] OFF[facility] BUILDING [address] [place] [address] [phone] Kirill Keen MD [address] [place] [address] Sarcoidosis Social History Tobacco Use Types Packs/Day [...] 8:34 AM CDT Prednisone refill sent to [facility]. * Telephone Encounter - Diana Carmichael LPN - 10/04/2022 8:29 AM CDT Please advise documented in this encounter Plan of Treatment Upcoming Encounters Date Type Department Care Team (Late st Contact Info) Description 03/12/2025 1:30 PM POLYMERIZATION SUPERVISOR Office Visit [facility]ULMONOLOGY CLINIC MEDICAL OFFICE BUILDING [address] [place] [address] [phone] Kirill Keen MD [facility] [address] [place], [place] [phone] documented as of this encounter Visit Diagnoses Diagnosis Sarcoidosis documented in this encounter Care Teams Washery Engineer Relationship Specialty Start Date End Date Refugio Bedoya [facility] [address] [place] [address] [address] [place], [place] [address] PCP - General 11/17/20 documented as of this encounter
--- OUTSIDE RECORDS SUMMARY | 2024-12-18 06:11 | XMS_ITS ---
Author Organization [facility] Address [address] King: Epic Prelude ADT [place], [place] [address] Care Team Providers Care Cd Storage And Materials Make Up Helper Name Role Phone Unavailable Primary Care [...] are noted during his recent admission to [facility]. Patient endorses unrefreshing sleep and snoring. He scored a 7 on the [place] Sleepiness Scale. Sleep study was ordered at [...] 01/08/2017 Overview (07/07/2021): Per Dr Kirill Keen. [phone]. . [facility], [address] [place] [address]. Status post lung biopsy Per Dr Kirill Keen. [phone]. . [facility], [address] [place] [address]. Status post lung biopsy Patient suffered multiple [...] 09/28/2016 Overview (07/07/2021): Referral in place to display manager in [place]. FVC 2.47-56% predicted, FEV1 0.87-33% predicted. TLC 7.53-118%, vital capacity 3.01-68%, DLCO 18.73 68%. Consistent with severe COPD Pulmonollaqutia Birch MD at [facility] feels like it is Sarcoidosis. The Replaced By [facility] lymph node biopsy by Bernardino MAURICIO December 03, [address] Joshua Leo. No granulomas were noted, negative for malignancy. TERRA level normal at 11. Due to ongoing suspicion about sarcoidosis he was started on prednisone 40 mg daily for 3 months with Bactrim DS for PCP prophylaxis. This is the plan per , [facility] - pulmonary 350, [address] [address]. [phone], fax [phone] to display manager in [place]. FVC 2.47-56% predicted, FEV1 0.87- 33% predicted. TLC 7.53-118%, vital capacity 3.01-68%, DLCO 18.73 68%. Consistent with severe COPD Pulmonollaquita Birch MD at [facility] like it is Sarcoidosis. The Replaced By [facility] lymph node biopsy by E HANG December 03, [address] Joshua Leo. No granulomas were noted, negative for malignancy. TERRA level normal at 11. Due to ongoing suspicion about sarcoidosis he was started on prednisone 40 mg daily for 3 months with Bactrim DS for PCP prophylaxis. This is the plan per Dr.Soberano [facility] - pulmonary 350, [address] [place] [address]. [phone], fax [phone] History of acute renal failure September 2016 017 Hx of acute respiratory failure with hypoxemia J une 2017 09/28/2016 CAD, s/p stent x 2 (2015) 09/28/2016 Overview (07/31/2020): Cardiac stents X 04 Aug 2015-continues on Plavix. Cariologist Dr Yu in [place] History of exposure to tuberculosis 09/28/2016 Overview [...]
--- OUTSIDE RECORDS SUMMARY | 2024-12-18 06:11 | XMS_ITS | Clinical Summary ---
Author Organization [facility] Address [address] King: [place] [address] Care Team Providers Care Access Control Specialist Name Role Phone Unavailable Primary Care Provider [...] mouth daily with supper. 05/17/19 20 Active metoprolol tartrate (LOPRESSOR) 25 mg tablet [...] PRN breathing difficulty . 09/14/19 17 Active sulfamethoxazol e-trimethoprim (BACTRIM DS) 800-160 mg tabletIndicatio ns:Chronic obstructive pulmonary disease, unspecified COPD type (CMS/HCC) [...] (E.C.) Take 81 mg by mouth. Active brinzolamide-br imonidine (SIMBRINZA) 1-0.2 % Drops, Suspension Administer 1 Drop in right eye 2 times daily. 10 mL 08/09/19 25 Active dorzolamide-nery oloL (COSOPT) 22.3-6.8 mg/mL solution Administer 1 Drop in right eye 2 times daily. 10 mL 08/14/19 25 Active busPIRone (BUSPAR) 10 mg tablet Take 10 mg by mouth 3 times daily as needed for Anxiety. Active levalbuterol (XOPENEX) 1.25 mg/0.5 mL Solution for [...] dispersed here 4 Tablet 10/15/19 25 Active gabapentin (NEURONTIN) 100 mg capsule Take 100 mg by mouth 2 times daily. 11/21/19 25 Active metoprolol succinate (TOPROL XL) 25 mg Extended Release 24 hour tablet Take 25 mg by mouth 2 times daily. 1/2 tablet twice daily Active HYDROcodone-terra taminophen (NORCO) 7.5-325 mg TabletIndicatio ns:Compression fracture of thoracic vertebra, unspecified thoracic vertebral level, initial encounter (CMS/[facility]) Take 1 Tablet by mouth every 4 hours as needed for Pain, Moderate. Max Daily Amount: 6 Tablets 20 Tablet 12/12/19 25 Active predniSONE (DELTASONE) 5 mg tablet 50 mg x 2 days 40 mg x 2 days 30 mg x 2 days 20 mg x 2 days 10 mg x 2 days 5 mg x 2 days 62 Tablet 12/12/19 25 Active predniSONE (DELTASONE) 20 mg tablet Take 20 mg by mouth daily. 06/12/19 22 025 Discontin ued(Alter kristi therapy prescribe d) Active Problems Problem Noted Date Diagnosed Date [...] are noted during his recent admission to [facility]. Patient endorses unrefreshing sleep and snoring. He scored a 7 on the [place] Sleepiness Scale. Sleep study was ordered at [...] 01/08/2017 Overview (07/07/2021): Per Dr Kirill Keen. [phone]. . [facility], [address] [place], [place]. Status post lung biopsy Per Dr Kirill Keen. [phone]. . [facility], [address] [place], [place]. Status post lung biopsy Patient suffered multiple [...] 09/28/2016 Overview (07/07/2021): Referral in place to business account executive in [place]. FVC 2.47-56% predicted, FEV1 0.87-33% predicted. TLC 7.53-118%, vital capacity 3.01-68%, DLCO 18.73 68%. Consistent with severe COPD Pulmonolgist Queta SAMANIEGO at [facility] like it is Sarcoidosis. The [facility] lymph node biopsy by Bernardino MAURICIO December 03, [address] Joshua Leo. No granulomas were noted, negative for malignancy. TERRA level normal at 11. Due to ongoing suspicion about sarcoidosis he was started on prednisone 40 mg daily for 3 months with Bactrim DS for PCP prophylaxis. This is the plan per , [facility] - pulmonary 350, [address] [place] [address]. [phone], fax [phone] to business account executive in [place]. FVC 2.47-56% predicted, FEV1 0.87- 33% predicted. TLC 7.53-118%, vital capacity 3.01-68%, DLCO 18.73 68%. Consistent with severe COPD Pulmonollaquita Birch MD at [facility] like it is Sarcoidosis. The [facility] lymph node biopsy by Bernardino MAURICIO December 03, [address] Joshua Leo. No granulomas were noted, negative for malignancy. TERRA level normal at 11. Due to ongoing suspicion about sarcoidosis he was started on prednisone 40 mg daily for 3 months with Bactrim DS for PCP prophylaxis. This is the plan per Dr.Soberano [facility] - pulmonary 350, [address] [place] [address]. [phone], fax [phone] History of acute renal failure September 2016 017 Hx of acute respiratory failure with hypoxemia J une 201609/28/2016 CAD, s/p stent x 2 (2015) 09/28/2016 Overview (07/31/2020): Cardiac stents X 04 Aug 2015-continues on Plavix. Cariologist Dr Yu in [place] History of exposure to tuberculosis 09/28/2016 Overview [...] Date Type Department Care Team Description 12/11/2024 8:13 PM CDT - 12/11/2024 10:35 PM CDT Emergency [facility] Emergency Medicine [address] [facility] [address] [place] [address] Nicolás Slaughter MD Chronic obstructive pulmonary disease with acute exacerbation (CMS/HCC) (Primary Dx); Bilateral thoracic back pain, unspecified chronicity; Compression fracture of thoracic vertebra, unspecified thoracic vertebral level, initial encounter (CMS/HCC) Discharge Disposition: Home or Self Care 12/11/2024 Travel 12/11/2024 External Device Data STL ABSTRACTION Provider, Abstract 12/04/2024 7:05 AM CDT - 12/04/2024 11:59 PM CDT Hospital Encounter [facility] Emergency Medical Services [address] [address] Ambulance, [facility] Discharge Disposition: [facility] 11/20/2024 Refill [facility] Ophthal[facility] [address] [place] [address] Dianna Overton MD 10/14/2024 8:20 PM CDT - 10/14/2024 9:38 PM CDT Emergency [facility] Medicine [address] [facility] [address] [place] [address] Yu, Chucho Y, DO Acute on chronic low back pain (Primary Dx) Discharge Disposition: Home or Self Care 10/06/2024 9:45 PM CDT - 10/06/2024 10:49 PM CDT Emergency [facility] Emergency Medicine [address] [place] [address] Carli Meng MD Strain of lumbar region, subsequent encounter (Primary Dx); Muscle spasm of back Discharge Disposition: Home or Self Care 10/06/2024 Travel from Last 3 Months Immunizations Immunization [...] on file Legal 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 Gender Identity Not on file Sexual Orientation [...] Mass Index 27.98 12/11/2024 8:23 PM CDT Plan of Treatment Upcoming Encounters Date Type Department Care Team (Late st Contact Info) Description 01/11/2025 10:45 AM CDT Appointment [facility] Laboratory Services [address] [facility] TeamPatent [address] [address] Jose Hughes MD [address] [address] 01/18/2025 1:20 PM CDT Office Visit [facility] Cancer and Hematology [place] [address] [address] Jose Hughes MD [address] [address] Health Maintenance Due Date Last Done Comments DIABETES ANNUAL FOOT EXAM 01/18/1980 DIABETES MICROALBUMIN ANNUAL SCREEN 01/18/1980 DTAP/TDAP/TD VACCINES (1 - Tdap) 1981 COLORECTAL SCREENING 2007 Colorectal Cancer Screening 2007 FIT-DNA Q 3 years 2007 FIT/FOBT Q 1 year 2007 Flex Sig/CT Colonography Q 5 years 2007 ZOSTER VACCINE (1 of 2) 01/18/2012 RSV VACCINE (60+ or ) (1 - Risk 60-74 years 1-dose series) 2022 INFLUENZA VACCINE (#1) 2024 DIABETES HBA1C Q 6 MONTHS 11/08/2024 05/11/2024 LDL CHOLESTEROL ANNUAL 05/11/2025 05/11/2024 DIABETES ANNUAL RETINAL EXAM 08/06/202508/2024, 08/06/2024, 08/06/2024, Additional history exists Medical Devices Implanted Type Area Marriage Performer Device Identifier Shelf Expiration Date Model / Serial / Lot Stent Percuflex+ 4.8fr 24cm [id number] - [id number] Implanted:Qty: 1 on 02/06/2023 by Lencho Acosta MD at [facility] Stent Left: Ureter [employer] [id number] 06/10/2025 [id number] 20 / / [id number] Explanted Type Area Marriage Performer Device Identifier Shelf Expiration Date Model / Serial / Lot Stent Contour [id number] - [id number] Explanted:Qty: 1 on 02/06/2023 by Lencho Acosta MD at [facility] Stent Left: Ureter [employer] [id number] 09/14/2025 [id number] 20 / / [id number] Procedures Procedure Name Priority Date/Time Associated Diagnosis Comments TROPONIN BASELINE, 5TH GEN Stat 12/11/2024 9:36 PM CDT BRAIN NATRIURETIC PEPTIDE, BNP OR PROBNP Stat 12/11/2024 9:36 PM CDT COMPREHENSIVE METABOLIC PANEL Stat 12/11/2024 9:36 PM CDT CBC WITH DIFFERENTIAL Stat 12/11/2024 9:36 PM CDT XR CHEST PA OR AP 1 VW Stat 9:25 PM CDT URINALYSIS W/REFLEX MICROSCOPIC Stat 10/06/2024 9:57 PM CDT LIPID RFLX Routine 05/11/2024 2:55 AM MAGAZINE REPAIRER HEMOGLOBIN A1C Routine 05/11/2024 2:55 AM MAGAZINE REPAIRER from Last 3 Months or Most Recently Relevant to Health Maintenance Results * (ABNORMAL) TROPONIN BASELINE, 5TH GEN (12/11/2024 9:36 PM CDT) Pathologist [facility] TROPONIN T, BASELINE 5TH GEN 51(H) <=15 ng/L 12/11/2024 10:09 PM CDT [facility] Blood BLOOD SPECIMEN / Unknown Collection / Unknown 12/11/2024 9:36 PM CDT 12/11/2024 9:48 PM CDT Narrative [facility] - 12/11/2024 10:09 PM CDT Troponin elevated. Nicolás Slaughter MD CHEMISTRY ORDERABLES Fin al Result [facility] CLIA # [id number] [address] [place] [address] * (ABNORMAL) CBC WITH DIFFERENTIAL (12/11/2024 9:36 PM CDT) [facility] WBC 25.8(H) 4.2 - 9.1 K/uL 12/11/2024 9:55 PM [facility] RBC 4.08(L) 4.63 - 6.08 M/uL 12/11/2024 9:55 PM [facility] HEMOGLOBIN 12.8(L) 13.7 - 17.5 g/dL 12/11/2024 9:55 PM [facility] HEMATOCRIT 40.4 40.1 - 51.0 % 12/11/2024 9:55 PM [facility] MCV 99.0(H) 79.0 - 92.2 fL 12/11/2024 9:55 PM [facility] MCH 31.4 25.7 - 32.2 pg 12/11/2024 9:55 PM [facility] MCHC 31.7(L) 32.3 - 36.5 g/dL 12/11/2024 9:55 PM [facility] RDW 16.4(H) 11.0 - 14.5 % 12/11/2024 9:55 PM [facility] RDW-STDEV 59.6(H) 36.9 - 56.9 fL 12/11/2024 9:55 PM [facility] PLATELETS 298 130 - 400 K/uL 12/11/2024 9:55 PM [facility] MPV 10.3 10.0 - 14.8 fL 12/11/2024 9:55 PM [facility] NEUTROPHILS 89(H) 34 - 68 % 12/11/2024 9:55 PM [facility] LYMPHOCYTES 2(L) 22 - 53 % 12/11/2024 9:55 PM [facility] MONOCYTES 5 5 - 12 % 12/11/2024 9:55 PM [facility] EOSINOPHILS 0(L) 1 - 7 % 12/11/2024 9:55 PM [facility] BASOPHILS 0 0 - 1 % 12/11/2024 9:55 PM [facility] IMMATURE GRANULOCYTES 4 % 12/11/2024 9:55 PM [facility] NEUTROPHIL ABSOLUTE 23.02(H) 1.78 - 5.38 K/uL 12/11/2024 9:55 PM [facility] LYMPHOCYTE ABSOLUTE 0.44(L) 1.20 - 3.40 K/uL 12/11/2024 9:55 PM [facility] MONOCYTE ABSOLUTE 1.27(H) 0.30 - 0.82 K/uL 12/11/2024 9:55 PM [facility] EOSINOPHIL ABSOLUTE 0.02(L) 0.04 - 0.54 K/uL 12/11/2024 9:55 PM [facility] BASOPHILS ABSOLUTE 0.08 0.01 - 0.08 K/uL 12/11/2024 9:55 PM [facility] IMMATURE GRANULOCYTES ABSOLUTE 0.98 K/uL 12/11/2024 9:55 PM [facility] Blood BLOOD SPECIMEN / Unknown Collection / Unknown 12/11/2024 9:36 PM CDT 12/11/2024 9:48 PM CDT Nicolás Slaughter MD HEMATOLOGY ORDERABLES Fi nal Result [id number] [address] [place] [address] * BRAIN NATRIURETIC PEPTIDE, BNP OR PROBNP (12/11/2024 9:36 PM CDT) PROBNP, N TERMINAL <36 0 - 125 pg/mL 12/11/2024 10:09 PM CDT [facility] Comment: INTERPRETIVE COMMENT based on diagnosis: [...] PM CDT Nicolás Slaughter MD CHEMISTRY ORDERABLES Fin al Result [id number] [address] [place] [address] * (ABNORMAL) COMPREHENSIVE METABOLIC PANEL (12/11/2024 9:36 PM CDT) SODIUM 141 136 - 145 mmol/L 12/11/2024 10:09 PM CDT [facility] POTASSIUM 4.6 3.5 - 5.1 mmol/L 12/11/2024 10:09 PM CDT [facility] CHLORIDE 101 98 - 107 mmol/L 12/11/2024 10:09 PM [facility] CO2 24 22 - 29 mmol/L 12/11/2024 10:09 PM [facility] CALCIUM 9.4 8.8 - 10.2 mg/dL 12/11/2024 10:09 PM [facility] BUN 25(H) 8 - 23 mg/dL 12/11/2024 10:09 PM [facility] CREATININE 0.79 0.67 - 1.17 mg/dL 12/11/2024 10:09 PM [facility] GLUCOSE 170(H) 74 - 99 mg/dL 12/11/2024 10:09 PM [facility] TOTAL PROTEIN 6.4(L) 6.6 - 8.7 g/dL 12/11/2024 10:09 PM [facility] ALBUMIN 4.3 3.5 - 5.2 g/dL 12/11/2024 10:09 PM [facility] BILIRUBIN TOTAL 0.4 0.0 - 1.2 mg/dL 12/11/2024 10:09 PM [facility] ALKALINE PHOSPHATASE 141(H) 40 - 129 U/L 12/11/2024 10:09 PM [facility] AST 28 0 - 50 U/L 12/11/2024 10:09 PM [facility] ALT 39 0 - 50 U/L 12/11/2024 10:09 PM [facility] GFR >60 >=60 mL/min/1.7 3 sq meter 12/11/2024 10:09 PM [facility] Comment:eGFR calculated with 2020 CKD-EPI equation. Vegetarian diet, extremely high or low muscle mass, and may affect results. Cystatin C with Glomerular Filtration Rate is a suitable alternative for these patients. ANION GAP 16 5 - 20 mmol/L 12/11/2024 10:09 PM [facility] Blood BLOOD SPECIMEN / Unknown Collection / Unknown 12/11/2024 9:36 PM CDT 12/11/2024 9:48 PM CDT Nicolás Slaughter MD CHEMISTRY ORDERABLES Fin al Result [facility] CLIA # [id number] [address] [place] [address] * XR CHEST PA OR AP 1 VW (12/11/2024 9:25 PM CDT) Anatomical Region Laterality Modality Chest Computed Radiogr aphy 12/11/2024 9:25 PM CDT Impressions 12/11/2024 11:15 PM CDT IMPRESSION: See below. EXAMINATION: XR CHEST PA OR AP 1 VW CLINICAL HISTORY: ASSOCIATED DIAGNOSIS: Shortness of Breath SOB ORDERING PROVIDER: NICOLÁS BORRERO NOTE: COMPARISON: September 2024 FINDINGS/IMPRESSION: Lines, tubes, [...] Shortness of Breath SOB ORDERING PROVIDER: NICOLÁS BORRERO NOTE: COMPARISON: September 2024 FINDINGS/IMPRESSION: Lines, tubes, and devices: None. Low lung volumes with bronchovascular crowding and bibasilar atelectasis. Patient is rotated. No significant effusion or pneumothorax. Heart size is stable. Postsurgical changes of the right axilla. Postprocedure changes from thoracic vertebral body vertebroplasty. us Nicolás Slaughter MD DIAGNOSTIC IMAGING ORDER VON Final Result * (ABNORMAL) URINALYSIS WITH REFLEX MICROSCOPIC (10/06/2024 9:57 PM CDT) COLOR UA Yellow Pale to Dark Yellow 10/06/2024 10:05 PM CDT [facility] CLARITY UA Clear Clear 10/06/2024 10:05 PM CDT [facility] SPECIFIC GRAVITY UA 1.015 1.003 - 1.035 10/06/2024 10:05 PM [facility] PH UA 5.5 5.0 - 8.0 10/06/2024 10:05 PM [facility] LEUKOCYTE ESTERASE UA Negative Negative 10/06/2024 10:05 PM [facility] NITRITE UA Negative Negative 10/06/2024 10:05 PM [facility] PROTEIN UA Negative Negative 10/06/2024 10:05 PM [facility] GLUCOSE UA 2+(A) Negative 10/06/2024 10:05 PM [facility] KETONES UA Trace(A) Negative 10/06/2024 10:05 PM [facility] UROBILINOGEN UA 0.2 <2.0 mg/dL 10:05 PM [facility] BILIRUBIN UA Negative Negative 10/06/2024 10:05 PM [facility] BLOOD UA Negative Negative 10/06/2024 10:05 PM [facility] Urine URINE SPECIMEN OBTAINED BY CLEAN CATCH PROCEDURE / Unknown Collection / Unknown 10/06/2024 9:57 PM CDT 10/06/2024 10:01 PM CDT us Carli Meng MD URINE ORDERABLES Final Res ult [facility] CLIA # [id number] [address] [place] [address] * (ABNORMAL) LIPID RFLX (05/11/2024 2:55 AM MAGAZINE REPAIRER) CHOLESTEROL 190 <200 mg/dL 05/11/2024 4:00 AM MAGAZINE REPAIRER [employer] [facility] [place] TRIGLYCERIDE 239(H) <150 mg/dL 05/11/2024 4:00 AM MAGAZINE REPAIRER [employer] [facility] [place] HDL 61(H) 40 - 59 mg/dL 05/11/2024 4:00 AM MAGAZINE REPAIRER [employer] [facility] [place] LDL CALCULATED 81 <100 mg/dL 05/11/2024 4:00 AM MAGAZINE REPAIRER [facility] [place] NON-HDL CHOLESTEROL 129 <130 mg/dL 05/11/2024 4:00 AM [facility] Blood BLOOD SPECIMEN / Unknown Venipuncture / Unknown 05/11/2024 2:55 AM MAGAZINE REPAIRER 05/11/2024 3:28 AM [facility] [employer] [facility] AM[place]DEEP - 05/11/2024 4:00 AM MAGAZINE REPAIRER TOTAL CHOLESTEROL mg/dL Desirable <200 Borderline high 200-239 High >=240 TRIGLYCERIDES mg/dL Normal <150 Borderline high 150-199 High 200-499 Very high >=500 HDL CHOLESTEROL mg/dL Low <40 Normal 40-59 Desirable >=60 NON HDL CHOLESTEROL mg/dL Optimal <130 Near Optimal 130-159 Borderline High 160-189 Very High >=190 CALCULATED LDL mg/dL LDL <70, OPTIMAL if have Atherosclerotic cardiovascular disease (ASCVD) or intermediate or higher (>7.5%) 10 year risk of ASCVD including most adults with diabetes. LDL <100, Optimal in adult patients with low (<7.5%) 10 year ASCVD risk LDL 100-160, Suboptimal LDL >160, High LDL >190, Very high ATPIII Guidelines Reference Ranges for Lipid Panels (NCEP/AMA) . Ella Zhou MD CHEMISTRY ORDERABL ES Final Result [facility] [employer] [facility] # [id number] [address] [place], [place] [address]maria luisa [facility] [place] [address] * (ABNORMAL) HEMOGLOBIN A1C (05/11/2024 2:55 AM [facility]) HEMOGLOBIN A1C 6.3(H) <=5.6 % 05/11/2024 9:[address] [facility] [employer] [facility] [place] EST. AVG GLUCOSE, A1C 134 mg/dL 05/11/2024 9:[address] [facility] [employer] [facility] Blood BLOOD SPECIMEN / Unknown Venipuncture / Unknown 05/11/2024 2:55 AM MAGAZINE REPAIRER 05/11/2024 3:23 AM [facility]ORATORY SERVICES - [place] - 05/11/2024 9:50 PM MAGAZINE REPAIRER HGB A1C INTERPRETATION NORMAL: <5.7% PRE-DIABETES: 5.7 - 6.4% DIABETES: 6.5% OR GREATER Dawood Wilkins MD CHEMISTRY ORDERABLES Fin al Result [facility] Kayce BERNSTEIN MYLES # [id number] [address] [place] [address] from Last 3 Months or Most Recently Relevant to Health Maintenance Insurance [place] MEDIC[place] PART A AND B RX [employer] RX Member Subscriber Plan / Payer (Ef fective 2021-Present) Name:Partha Roe Relation to Subscriber:Self Name:Partha Roe Subscriber ID:Not on file Payer ID:Not on file Group ID:[id number] Type:RX Commercial Address: [address] Advance Directives For more information, please contact: [phone] * Full Code (Latest Code Status on [...] Inactivated Comments 08/03/2021 1:37 PM 08/03/2021 7:31 PM"
--- NOTE | 2024-12-18 06:15 | W.ED.GENADLT ---
HPI - General Adult General: Chief complaint: Shortness of Breath/Dyspnea Stated complaint: sob Time Seen by Provider: 12/18/24 06:09 History of Present Illness: 62-year-old male presents emergency room with complaints of shortness of breath difficulty breathing. He was recently admitted to the hospital for 2 days for asthma exacerbation. Patient has a history of chronic diastolic heart failure as well as previous PE asthma and COPD. Patient denies any chest pain at this time. Has not had a productive cough he tried several nebulizers this morning without significant relief had nebulizer from EMS while and did have some slight improvement. Associated symptoms: Reports dyspnea; Deny chest pain or rash Related Data Home Medications ?Medication ?Instructions ?Recorded ?Confirmed sulfamethoxazole 800 1 tab PO .EVERY OTHER DAY 04/11/24 12/18/24 mg-trimethoprim 160 mg tablet (Bactrim DS) Held on 12/06/24. Instructions: Restart after completing your azithromycin and cefdinir antibiotics. aspirin 81 mg tablet 81 mg PO DAILY 10/01/24 12/18/24 brimonidine 0.2 % eye drops 1 drp ophthalmic (eye) BID 12/04/24 12/18/24 dorzolamide 2 % eye drops 1 drp ophthalmic (eye) BID 12/04/24 12/18/24 imiquimod 5 % topical cream packet See Rx Instructions .Route .COMPLEX 12/04/24 12/18/24 buspirone 7.5 mg tablet 7.5 mg PO TID PRN Anxiety 12/18/24 12/18/24 hydrocodone 7.5 mg-acetaminophen 1 tab PO Q4H PRN Moderate Pain 12/18/24 12/18/24 325 mg tablet (Scale Score 5-6) prednisone 5 mg tablet See Rx Instructions .Route .COMPLEX 12/18/24 12/18/24 Previous Rx's ?Medication ?Instructions ?Recorded simvastatin 40 mg tablet 40 mg PO QPM #30 tabs 05/08/24 nitroglycerin 0.4 mg sublingual 0.4 mg sublingual Q5M PRN chest 05/16/24 tablet pain #30 tabs losartan 50 mg tablet 50 mg PO DAILY blood pressure #90 07/30/24 tabs empagliflozin 10 mg tablet 10 mg PO DAILY #30 tabs 08/20/24 (Jardiance) metoprolol succinate 25 mg 12.5 mg (1/2 x 25 mg) PO BID #60 08/20/24 tablet,extended release 24 hr tabs furosemide 40 mg tablet 40 mg PO QAM edema/heart #30 tabs 10/25/24 albuterol sulfate 90 mcg/actuation 2 puff inhalation Q6H PRN 12/06/24 aerosol inhaler (Ventolin HFA) breathing #8.5 grams prednisone 20 mg tablet See Rx Instructions .Route 12/06/24 .COMPLEX #30 tabs cyclobenzaprine 10 mg tablet 10 mg PO TID PRN muscle spasms #90 12/10/24 tabs gabapentin 100 mg capsule 100 mg PO BID #60 caps 12/10/24 apixaban 5 mg tablet (Eliquis) 5 mg PO BID #60 tabs 12/14/24 Nebulizer with tubing and filter #1 ea 12/17/24 fluticasone fur. 100 mcg-umeclid 1 inh inhalation DAILY #28 ea 12/17/24 62.5 mcg-vilant 25 mcg inhalat.powder (Trelegy Ellipta) albuterol sulfate 2.5 mg/3 mL 2.5 mg (3 mL) inhalation Q4H PRN 12/20/24 (0.083 %) solution for nebulization Wheezing #30 mL Allergies Allergy/AdvReac Type Severity Reaction Status Date / Time cat dander Allergy Mild ADR-Swelling Verified 12/17/24 14:34 of the Eye ibuprofen Allergy Unknown Unknown Verified 12/17/24 14:34 menthol Allergy Unknown Verified 12/17/24 14:34 ketorolac (From Toradol) AdvReac renal Verified 12/17/24 14:34 failure Review of Systems Const: Denies: fever(s) or chills Card: Denies: chest pain Resp: Reports: dyspnea, non-productive cough, wheezing and chest congestion GI: Denies: abdominal pain : Denies: dysuria, urinary frequency or urinary urgency Musc: Denies: neck pain or back pain Skin/Breast: Denies: rash PFSH ED PFSH: Medical History Enrolled in chronic care management Depression Pulmonary embolism Type 2 diabetes mellitus without complication, without long-term current use of insulin 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 Left ureteral calculus 02/09/2023 [facility] Bilateral lower extremity edema Non-smoker COPD (chronic obstructive pulmonary disease) Pulmonary sarcoidosis Hyperlipidemia ASHD (arteriosclerotic heart disease) 2016 stents x2 HTN (hypertension) Surgical History History of eye surgery History of back surgery H/O bilateral cataract extraction S/P PTCA (percutaneous transluminal coronary angioplasty) S/P cholecystectomy S/P skin cancer resection Family History Brother CAD (coronary artery disease) valve replaced Mother Lung disease Denies family history of Diabetes Clotting disorder Dementia Chronic kidney disease (CKD) Suicide Anesthesia complication Bleeding disorder Cancer Stroke Social History Smoking and tobacco/nicotine status: never used tobacco/nicotine Second hand smoke exposure: No Alcohol intake: never Substance/Drug Use: never Physical Exam Const: GENERAL APPEARANCE: cooperative ORIENTATION/CONSCIOUSNESS: Yes awake, Yes oriented to person, Yes oriented to place and Yes oriented to time HENMT: COMMON NORMALS: normocephalic, atraumatic and hearing grossly normal bilaterally HEAD & SCALP: normocephalic and atraumatic Resp: EFFORT & INSPECTION: No able to speak in complete sentences, Yes tachypneic, Yes labored and Yes uses accessory muscles AUSCULTATION: wheezes Cardio: COMMON NORMALS: regular rhythm and No murmurs present (Cardio) RATE: tachycardic RHYTHM: regular rhythm GI: COMMON NORMALS: Soft to palpation and No hepatosplenomegaly present AUSCULTATION: Yes normoactive bowel sounds PALPATION: Yes Soft to palpation, No Tenderness to palpation present (GI), No Guarding due to palpation present (GI) and Yes No hepatosplenomegaly present Extremity: COMMON NORMALS: normal to inspection, capillary refill normal, no clubbing, cyanosis or edema, no calf tenderness and no pedal edema Neuro: SENSORIUM/ORIENTATION: Yes oriented to person, Yes oriented to place and Yes oriented to time Skin: COMMON NORMALS: no rashes or lesions noted GENERAL SKIN EXAM: no rashes or lesions noted Course Vital Signs: Vital signs: Vital Signs Temperature 97.9 F 12/20/24 07:00 Pulse Rate 106 H 12/20/24 14:00 Respiratory Rate 16 12/20/24 13:53 Blood Pressure 144/75 12/20/24 12:00 Pulse Oximetry 96 12/20/24 13:53 Oxygen Delivery Me thod Room Air 12/20/24 13:53 Oxygen Flow Rate 1 12/19/24 02:20 Fraction of Inspir ed Oxygen 30 12/19/24 10:03 MDM - General Adult Medical Decision Making Patient presents in acute respiratory distress. He was started on BiPAP and it improved. White count elevated lactic acid over 4. Patient's given fluid sepsis bolus as well as started on IV antibiotics cultures done. Discussed with hospitalist will admit to the ICU initially continue BiPAP. Medical Records I reviewed the patient's medical records. Lab Data I reviewed the patient's lab results. 12/20/24 03:44 12/20/24 03:44 Radiology Impressions Chest X-Ray 12/18/24 06:09 IMPRESSION: Stable chest with no acute abnormality. Laboratory Results WBC 20.37 10^3/uL (3.29-11.43) H 12/18/24 06:36 RBC 4.21 10^6/uL (3.85-5.65) 12/18/24 06:36 Hgb 13.10 g/dL (11.27-16.99) 12/18/24 06:36 Hct 42.9 % (37-53) 12/18/24 06:36 MCV 101.9 fl (82-101) H 12/18/24 06:36 MCH 31.1 pg (27-33) 12/18/24 06:36 MCHC 30.5 g/dL (30-55) 12/18/24 06:36 RDW 17.0 % (12.1-15.1) H 12/18/24 06:36 Plt Count 253 10^3/cmm (157-399) 12/18/24 06:36 MPV 9.8 fL (7.4-10.4) 12/18/24 06:36 Neut % (Auto) 84.7 % 12/18/24 06:36 Lymph % (Auto) 5.3 % 12/18/24 06:36 Foster % (Auto) 6.6 % 12/18/24 06:36 Eos % (Auto) 0.4 % 12/18/24 06:36 Baso % (Auto) 0.2 % 12/18/24 06:36 Neut # (Auto) 17.25 10^3/uL (1.8-7.7) H 12/18/24 06:36 Lymph # (Auto) 1.1 10^3/uL (0.8-4.8) 12/18/24 06:36 Foster # (Auto) 1.3 10^3/uL (0.2-0.9) H 12/18/24 06:36 Eos # (Auto) 0.1 10^3/uL (0.0-0.8) 12/18/24 06:36 Baso # (Auto) 0.1 10^3/uL (0.0-0.1) 12/18/24 06:36 Nucleated RBC % (auto) 0.1 % 12/18/24 06:36 Nucleated RBCs # 0.0 /100WBC 12/18/24 06:36 Specimen Type Arterial 12/18/24 06:16 Sample Site Radial, right 12/18/24 06:16 ABG pH 7.40 (7.35-7.45) 12/18/24 06:16 ABG pCO2 35.4 mmHg (35-45) 12/18/24 06:16 ABG pO2 76.5 mmHg (80.0-100.0) L 12/18/24 06:16 ABG PO2/FiO2 Ratio 212 12/18/24 06:16 ABG HCO3 21.7 mmol/L (22-26) L 12/18/24 06:16 ABG O2 Saturation 96.5 12/18/24 06:16 ABG Base Excess -2.6 mmol/L (-2.0-2.0) L 12/18/24 06:16 Juan Antonio Test Pos 12/18/24 06:16 A-a O2 Gradient 17.7 mmHg (5-10) H 12/18/24 06:16 Hematocrit 41.6 % (42-52) L 12/18/24 06:16 Hgb O2 Saturation 93.8 % (95-100) L 12/18/24 06:16 Carboxyhemoglobin 1.9 %THgb (0.4-20.1) 12/18/24 06:16 Methemoglobin 1.0 % (0.4-1.5) 12/18/24 06:16 Total Hemoglobin 13.6 g/dL (14-18) L 12/18/24 06:16 Sodium 136.0 mmol/L (131-143) 12/18/24 06:16 Potassium 4.6 mmol/L (3.5-5.0) 12/18/24 06:16 Glucose 170.0 mg/dL (70-115) H 12/18/24 06:16 Ionized Calcium 1.2 mmol/L (1.1-1.4) 12/18/24 06:16 O2 Delivery Device Nc 12/18/24 06:16 O2 Liters/Min 40.0 % 12/18/24 06:16 FiO2 36.0 % 12/18/24 06:16 Leather Tacker ID [id number] 12/18/24 06:16 Sodium 137 mmol/L (136-145) 12/18/24 06:36 Potassium 4.8 mmol/L (3.5-5.1) 12/18/24 06:36 Chloride 95 mmol/L (98-107) L 12/18/24 06:36 Carbon Dioxide 23 mmol/L (22-29) 12/18/24 06:36 Anion Gap 23.8 (5-19) H 12/18/24 06:36 BUN 15 mg/dL (8-23) 12/18/24 06:36 Creatinine 0.9 mg/dL (0.7-1.2) 12/18/24 06:36 GFR Calculation 85.5 mL/min (90-130) L 12/18/24 06:36 Glucose 157 mg/dL (65-115) H 12/18/24 06:36 Calculated Osmolality 288 mOsm/kg (285-295) 12/18/24 06:36 Lactic Acid 4.9 mmol/L (0.5-2.2) H* 12/18/24 06:36 Lactic Acid (Sepsis) 2.5 mmol/L (0.5-2.2) H 12/18/24 09:09 Calcium 9.0 mg/dL (8.5-10.5) 12/18/24 06:36 Magnesium 2.3 mg/dL (1.7-2.3) 12/18/24 06:36 Total Bilirubin 0.8 mg/dL (0.15-1.2) 12/18/24 06:36 AST 18 U/L (0-40) 12/18/24 06:36 ALT 24 U/L (0-41) 12/18/24 06:36 Alkaline Phosphatase 166 U/L (40-130) H 12/18/24 06:36 Total Protein 6.4 g/dL (6.6-8.7) L 12/18/24 06:36 Albumin 3.8 g/dL (3.5-5.2) 12/18/24 06:36 Globulin 2.6 g/dL (1.3-4.6) 12/18/24 06:36 Influenza A (PCR) Negative (Negative) 12/18/24 06:57 Influenza Type B (PCR) Negative (Negative) 12/18/24 06:57 RSV (PCR) Negative (Negative) 12/18/24 06:57 SARS-CoV-2 (PCR) Negative (Negative) 12/18/24 06:57 All radiology interpretation(s) finalized by discharge EKG Data EKG 1: Interpretation: EKG sinus tachycardia rate of [address] changes noted. WA interval 154 QTc 410. Compared to EKG 12/05/2024 no significant change Computer generated interpretation: Chest X-Ray 12/18/24 06:09 IMPRESSION: Stable chest with no acute abnormality. 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
[2024-12-18 06:28] LABS: ABG PCO2 35.4 mmHg (35-45); ABG PH Result 7.40 (7.35-7.45); Alveolar-Arterial Oxygen Gradi 17.7 mmHg (5-10); Arterial Blood Gas Hematocrit 41.6 % (42-52); Blood Gas Allen Test Pos; Blood Gas LPM 40.0 %; Blood Gas Operator Identificat gerca; Blood Gas Sample Site Radial, right; Blood Gas Sample Type Arterial; Carboxyhemoglobin 1.9 %THgb (0.4-20.1); Glucose Level-ABG 170.0 mg/dL (70-115); HCO3 ABG 21.7 mmol/L (22-26); Ionized Calcium Level - ABG 1.2 mmol/L (1.1-1.4); Methemoglobin 1.0 % (0.4-1.5); Oxygen Saturation ABG 96.5; PO2 ABG 76.5 mmHg (80.0-100.0); PO2 FiO2 Ratio Arterial Blood 212; Potassium Level - ABG 4.6 mmol/L (3.5-5.0); Sodium Level - ABG 136.0 mmol/L (131-143)
[2024-12-18] MEDS: methylPREDNISolone sod succ 125 mg/2 mL INJ IVP (06:38)
[2024-12-18 06:46] LABS: Hematocrit 42.9 % (37-53); Hemoglobin 13.10 g/dL (11.27-16.99); Mean Corpuscular HGB Conc 30.5 g/dL (30-55); Mean Corpuscular Hemoglobin 31.1 pg (27-33); Mean Corpuscular Volume 101.9 fl (82-101); Nucleated Red Blood Cells % 0.1 %; Platelet Count 253 10^3/cmm (157-399); Red Blood Count 4.21 10^6/uL (3.85-5.65); White Blood Count 20.37 10^3/uL (3.29-11.43)
[2024-12-18 07:07] LABS: Alanine Aminotransferase 24 U/L (0-41); Albumin Level 3.8 g/dL (3.5-5.2); Alkaline Phosphatase 166 U/L (40-130); Anion Gap 23.8 (5-19); Aspartate Amino Transferase 18 U/L (0-40); Blood Urea Nitrogen 15 mg/dL (8-23); Calcium 9.0 mg/dL (8.5-10.5); Carbon Dioxide 23 mmol/L (22-29); Chloride 95 mmol/L (98-107); Creatinine Clr Calc Pharmacy 81.8947; Globulin 2.6 g/dL (1.3-4.6); Glucose 157 mg/dL (65-115); Osmolality Calculated 288 mOsm/kg (285-295); Potassium 4.8 mmol/L (3.5-5.1); Sodium 137 mmol/L (136-145); Total Protein 6.4 g/dL (6.6-8.7)
[2024-12-18 07:11] LABS: Lactic Sepsis W/Reflex 4.9 mmol/L (0.5-2.2)
[2024-12-18] MEDS: sodium chloride 0.9% 2,231.67 ML 2231.67 ML IV (07:27)
--- NOTE | 2024-12-18 07:42 | PC.PHAR ---
Pt recently finished a Zpak and Cefdinir 300mg from new orders 12/06/24. Spouse states pt resumed Bactrim after finishing new antibiotic therapy. Pt has 1 new order for [place] 7.5 from 12/12. Pt is no longer taking Duloxetine 40mg from 10/09/24, but does take Buspirone 7.5mg as needed.
[2024-12-18 08:21] LABS: Respiratory Syncytial Virus Ce NEGATIVE (Negative); SARS-CoV-2 PCR NEGATIVE (Negative)
[2024-12-18 08:28] LABS: Reflex Lactate Order REFLEX LACTIC ORDERD
--- NOTE | 2024-12-18 09:00 | PC.NURSE ---
ABX LATE DUE TO LINE INFILTRATION AND NEED FOR CULTURES. LINE REMOVED, EDEMA NOTED IN EXTEMITY ARM COMPRESSION APPLIED. PT HAS NO COMPLAINTS AT THIS TIME.
[2024-12-18] MEDS: piperacillin-tazobactam 3.375 GM in sodium chloride 0.9% (plus) 50 ML IV (09:07)
[2024-12-18 09:38] LABS: Lactic Acid level (Lactate) 2.5 mmol/L (0.5-2.2)
--- NOTE | 2024-12-18 10:49 | PM.HP ---
Providers/Chief Complaint Admitting Physician: Shaka Chapman Primary Care Provider: Natalia Alvarado NP Chief Complaint: sob History of Present Illness Partha Roe is a 64 year old patient with a history of chronic obstructive pulmonary disease (COPD), asthma, prior pulmonary embolism on apixaban, type 2 diabetes mellitus, pulmonary sarcoidosis, hyperlipidemia, hypertension, and coronary artery disease with two stents presenting to the emergency department with shortness of breath/dyspnea. Recently admitted and discharged on December 06 for asthma and COPD exacerbations. Reports minimal cough and not bringing up phlegm. Denies fever, vomiting, diarrhea, abdominal pain, melena, hematochezia. Notes not eating. Endorses burning with urination. Denies rashes; bruises noted during evaluation. Denies tobacco use and alcohol consumption. Uses a home nebulizer. Denies use of BiPAP/CPAP at home and denies sleep apnea. Prednisone taken at home yesterday. Code status discussion held, and the patient agreed to full resuscitative efforts if needed. Review of Systems Const: Denies: fever(s), chills, body aches or malaise ENMT: Denies: throat pain Card: Denies: chest pain, edema, pre-syncope or dyspnea on exertion Resp: Reports: dyspnea and non-productive cough; Denies: productive cough, change in phlegm color or hemoptysis GI: Denies: abdominal pain, nausea, vomiting, diarrhea, constipation, hematochezia or melena : Denies: flank pain, difficulty urinating, urinary frequency or hematuria Musc: Denies: back pain, joint swelling or joint redness Skin/Breast: Reports: rash (legs); Denies: new lesions Neuro: Denies: headache(s) or confusion Medications/Allergies Home Medications ?Medication ?Instructions ?Recorded ?Confirmed ?Last Taken ?Type sulfamethoxazole 800 1 tab PO .EVERY OTHER DAY 04/11/24 12/18/24 12/03/24 History mg-trimethoprim 160 mg tablet (Bactrim DS) Held on 12/06/24. Instructions: Restart after completing your azithromycin and cefdinir antibiotics. simvastatin 40 mg tablet 40 mg PO QPM #30 tabs 05/08/24 12/18/24 12/17/24 Rx nitroglycerin 0.4 mg sublingual 0.4 mg sublingual Q5M PRN chest 05/16/24 12/18/24 Unknown Rx tablet pain #30 tabs losartan 50 mg tablet 50 mg PO DAILY blood pressure #90 07/30/24 12/18/24 12/17/24 Rx tabs empagliflozin 10 mg tablet 10 mg PO DAILY #30 tabs 08/20/24 12/18/24 12/17/24 Rx (Jardiance) metoprolol succinate 25 mg 12.5 mg (1/2 x 25 mg) PO BID #60 08/20/24 12/18/24 12/17/24 Rx tablet,extended release 24 hr tabs aspirin 81 mg tablet 81 mg PO DAILY 10/01/24 12/18/24 12/18/24 History furosemide 40 mg tablet 40 mg PO QAM edema/heart #30 tabs 10/25/24 12/18/24 12/17/24 Rx brimonidine 0.2 % eye drops 1 drp ophthalmic (eye) BID 12/04/24 12/18/24 12/17/24 History dorzolamide 2 % eye drops 1 drp ophthalmic (eye) BID 12/04/24 12/18/24 12/17/24 History imiquimod 5 % topical cream packet See Rx Instructions .Route .COMPLEX 12/04/24 12/18/24 12/04/24 History albuterol sulfate 2.5 mg/3 mL 2.5 mg (3 mL) inhalation Q4H PRN 12/06/24 12/18/24 Unknown Rx (0.083 %) solution for nebulization Wheezing #30 mL albuterol sulfate 90 mcg/actuation 2 puff inhalation Q6H PRN 12/06/24 12/18/24 Unknown Rx aerosol inhaler (Ventolin HFA) breathing #8.5 grams prednisone 20 mg tablet See Rx Instructions .Route 12/06/24 12/18/24 12/04/24 Rx .COMPLEX #30 tabs cyclobenzaprine 10 mg tablet 10 mg PO TID PRN muscle spasms #90 12/10/24 12/18/24 Unknown Rx tabs gabapentin 100 mg capsule 100 mg PO BID #60 caps 12/10/24 12/18/24 12/17/24 Rx apixaban 5 mg tablet (Eliquis) 5 mg PO BID #60 tabs 12/14/24 12/18/24 12/17/24 Rx Nebulizer with tubing and filter #1 ea 12/17/24 12/18/24 Unknown Rx fluticasone fur. 100 mcg-umeclid 1 inh inhalation DAILY #28 ea 12/17/24 12/18/24 12/17/24 Rx 62.5 mcg-vilant 25 mcg inhalat.powder (Trelegy Ellipta) buspirone 7.5 mg tablet 7.5 mg PO TID PRN Anxiety 12/18/24 12/18/24 Unknown History hydrocodone 7.5 mg-acetaminophen 1 tab PO Q4H PRN Moderate Pain 12/18/24 12/18/24 Unknown History 325 mg tablet (Scale Score 5-6) prednisone 5 mg tablet See Rx Instructions .Route .COMPLEX 12/18/24 12/18/24 12/17/24 History Allergies Allergy/AdvReac Type Severity Reaction Status Date / Time cat dander Allergy Mild ADR-Swelling Verified 12/17/24 14:34 of the Eye ibuprofen Allergy Unknown Unknown Verified 12/17/24 14:34 menthol Allergy Unknown Verified 12/17/24 14:34 ketorolac (From Toradol) AdvReac renal Verified 12/17/24 14:34 failure PFSH Acute PFSH: Medical History Enrolled in chronic care management Depression Pulmonary embolism Type 2 diabetes mellitus without complication, without long-term current use of insulin [place]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 Left ureteral calculus 02/09/2023 [facility] Bilateral lower extremity edema Non-smoker COPD (chronic obstructive pulmonary disease) Pulmonary sarcoidosis Hyperlipidemia ASHD (arteriosclerotic heart disease) 2016 stents x2 HTN (hypertension) Surgical History History of eye surgery History of back surgery H/O bilateral cataract extraction S/P PTCA (percutaneous transluminal coronary angioplasty) S/P cholecystectomy S/P skin cancer resection Family History Brother CAD (coronary artery disease) valve replaced Mother Lung disease Denies family history of Diabetes Clotting disorder Dementia Chronic kidney disease (CKD) Suicide Anesthesia complication Bleeding disorder Cancer Stroke Social History Smoking and tobacco/nicotine status: never used tobacco/nicotine Second hand smoke exposure: No Alcohol intake: never Substance/Drug Use: never Vitals/I&O/Wt Last Vital Signs Temp 98.0 F 12/18/24 06:07 Pulse 117 H 12/18/24 10:43 Resp 12 12/18/24 06:48 BP 118/85 12/18/24 10:43 Pulse Ox 96 12/18/24 10:43 O2 Del Method Nasal Cannula 12/18/24 06:29 O2 Flow Rate 4 12/18/24 06:29 FiO2 45 12/18/24 09:46 12/17/24 12/18/24 12/18/24 22:59 06:59 14:59 Intake Total 3231.67 / 3231.67 Balance 3231.67 / 3231.67 Weight last 48 hrs Weight 74.389 kg Physical Exam Const: COMMON NORMALS: patient oriented x3 and alert GENERAL APPEARANCE: cooperative ORIENTATION/CONSCIOUSNESS: Yes awake HENMT: COMMON NORMALS: oropharynx normal Neck/C-Spine: COMMON NORMALS: no JVD Resp: COMMON NORMALS: normal respiratory effort and clear to auscultation bilaterally AUSCULTATION: clear to auscultation bilaterally Cardio: COMMON NORMALS: no JVD, regular rhythm, S1 normal heart sound present, S2 normal heart sound present and No murmurs present (Cardio) RHYTHM: regular rhythm HEART SOUNDS: S1 normal heart sound present and S2 normal heart sound present GI: COMMON NORMALS: Normal to inspection, nondistended, normoactive bowel sounds present, Soft to palpation and non-tender PALPATION: Yes Soft to palpation Extremity: COMMON NORMALS: no joint enlargement and no pedal edema Neuro: COMMON NORMALS: patient oriented x3 and moves all extremities SENSORIUM/ORIENTATION: Yes alert Skin: COMMON NORMALS: no rashes or lesions noted GENERAL SKIN EXAM: no rashes or lesions noted Quick SOFA Score: Respiratory Rate: 12 Blood Pressure: 118/85 [place] Coma Scale: 15 qSOFA Score: 0 If qSOFA score 2 or greater, continue: PaO2/FiO2 Ratio (mmHg): 212 Blood Pressure Mean: 112 Bilirubin (mg/dl): 0.8 Platelets (x10?/ml): 253 Creatinine (mg/dl): 0.9 SOFA Score: 2 Evaluation: Current stage of sepsis: severe sepsis Sepsis stage criteria used: [facility] Sep-1 and Sepsis-3 Focused Exam: Vital signs: Temp Pulse Resp BP Pulse Ox O2 Del Method O2 Flow Rate 12/18/24 10:51 BiPAP 12/18/24 10:50 115 H 99 12/18/24 10:43 117 H 118/85 96 12/18/24 10:02 119 H 136/100 97 12/18/24 09:46 114 H 95 12/18/24 07:12 124 H 95 12/18/24 06:48 131 H 12 116/88 100 12/18/24 06:29 138 H 26 H 100 Nasal Cannula 4 12/18/24 06:07 98.0 F 135 H 30 H 131/98 96 Nasal Cannula 4 FiO2 12/18/24 10:51 12/18/24 10:50 40 12/18/24 10:43 12/18/24 10:02 12/18/24 09:46 45 12/18/24 07:12 45 12/18/24 06:48 12/18/24 06:29 12/18/24 06:07 Respiratory exam: diminished lung sounds; no wheezes Capillary refill: < 3 Seconds Skin exam: not diaphoretic and no mottling Date exam was performed: 12/18/24 Time exam was performed: 12:49 Sepsis Screen No Definite Risk Today, 10:02 Respiratory Rate, (12 - 18) 12 breaths/min Today, 06:48 Blood Pressure 118/85 mmHg Today, 10:43 [place] Coma Scale Score 15 Today, 10:51 Quick SOFA Score 0 Today, 11:04 SOFA Score: ABG PO2/FiO2 Ratio 212 Today, 06:16 [place] Coma Scale Score 15 Today, 10:51 Blood Pressure Mean 112 mmHg Today, 10:02 Total Bilirubin, (0.15-1.2) 0.8 mg/dL Today, 06:36 Platelet Count, (157-399) 253 10^3/cmm Today, 06:36 Creatinine, (0.7-1.2) 0.9 mg/dL Today, 06:36 SOFA Score 2 Today, 11:04 Data 12/18/24 06:36 12/18/24 06:36 Micro: Microbiology 12/18/24 08:55 Blood Culture - Preliminary Blood SPECIMEN COLLECTED 12/18/24 08:37 Blood Culture - Preliminary Blood SPECIMEN COLLECTED A&P Assessment and plan 1. COPD with acute exacerbation: COPD exacerbation : Acute respiratory failure with hypoxia with COPD-asthma overlap exacerbation, diminished drainage, cough, dyspnea, hypoxemia, requiring BiPAP. Presents with dyspnea; recent admission for asthma/COPD exacerbation. Chest X-ray without acute abnormality. Respiratory viral panel negative for influenza, COVID-19, and RSV. Reviewed vitals, CBC, ABG, CMP, lactic acid, nasal influenza, RSV, COVID, chest x-ray, EKG, ED provider note, discussed with ED provider. - Resume IV corticosteroids (Solu-Medrol 40 mg q6h), monitor for risk of hyperglycemia, HTN, gastritis, encephalopathy - Provide breathing treatments - Continue oxygen support; wean as tolerated - Monitor in ICU for now 2. Sepsis: Possible sepsis : Concern raised due to elevated white blood cell count (20), tachycardia, and elevated lactic acid; chest X-ray without acute abnormality; respiratory viral panel negative. Cellulitis. - Administer empiric antibiotics due to possible sepsis (source not yet confirmed) - Monitor in ICU given concern for septic shock - Reassess blood counts - Repeat lactate (down to 2.5 after fluid resuscitation) - Continue supportive care including fluids as indicated Possible cellulitis of bilateral lower extremities : Bilateral lower extremities appeared erythematous; worse than usual per patient; possible cellulitis considered, possibly superimposed on chronic venous stasis. - Continue antibiotic coverage targeting possible cellulitis - Include methicillin-resistant Staphylococcus aureus (MRSA) coverage given recent hospitalization Plan: Lactic acidosis : Initial lactic acid 4.9 with concern for septic physiology; decreased to 2.5 after fluid resuscitation. - Monitor lactate levels - Continue ICU monitoring - Continue supportive care; reassess response to fluids and treatment Ectopic atrial tachycardia : Electrocardiogram (EKG) showed ectopic atrial tachycardia with premature ventricular contractions (PVCs). Dysuria : Patient reported burning with urination. - Attempt to obtain urine sample for evaluation Follow-up : Ongoing inpatient monitoring and reassessment described. - Reassess clinically after initiation of IV corticosteroids, antibiotics, and supportive care PDMP PDMP Reviewed: Not Reviewed Attestations Medical Necessity Statement*: Admission over 2 midnights anticipated for assessment management of acute respiratory failure with Diagnoses COPD with acute exacerbation J44.1 Sepsis A41.9
--- NOTE | 2024-12-18 10:50 | PC.NURSE ---
Arrived from ed, AO to self, reported not wanting bipap but is tolerating at this time
--- NOTE | 2024-12-18 11:20 | PHA.VACGOAL ---
Vancomycin Goal - Goal Vancomycin Goal:: 15-20 mg/L Vancomycin Indication:: Other - Therapy Current therapy:: Cefepime Day of therpy:: Day []of [] . Actual body weight (kg): 164 lb - Data Labs: WBC 20.37 10^3/uL (3.29-11.43) H 12/18/24 06:36 RBC 4.21 10^6/uL (3.85-5.65) 12/18/24 06:36 Hgb 13.10 g/dL (11.27-16.99) 12/18/24 06:36 Hct 42.9 % (37-53) 12/18/24 06:36 MCV 101.9 fl (82-101) H 12/18/24 06:36 MCH 31.1 pg (27-33) 12/18/24 06:36 MCHC 30.5 g/dL (30-55) 12/18/24 06:36 RDW 17.0 % (12.1-15.1) H 12/18/24 06:36 Sodium 137 mmol/L (136-145) 12/18/24 06:36 Potassium 4.8 mmol/L (3.5-5.1) 12/18/24 06:36 Chloride 95 mmol/L (98-107) L 12/18/24 06:36 Carbon Dioxide 23 mmol/L (22-29) 12/18/24 06:36 Anion Gap 23.8 (5-19) H 12/18/24 06:36 BUN 15 mg/dL (8-23) 12/18/24 06:36 Creatinine 0.9 mg/dL (0.7-1.2) 12/18/24 06:36 GFR Calculation 85.5 mL/min (90-130) L 12/18/24 06:36 Last dialysis session:: N/A Treatment plan:: new consult Regimen:: LOADING DOSE OF 2000 MG X 1 PER DOSING PROTOCOL MAINTENANCE DOSE OF 1250 MG Q12H Follow up:: WILL CONTINUE TO MONITOR AND FOLLOW UP DAILY
[2024-12-18] MEDS: pantoprazole 40 mg SDV IVP (11:41)
[2024-12-18] MEDS: methylPREDNISolone sod succ 40 mg/mL INJ IVP ×3 (11:43→23:02)
[2024-12-18 11:45] LABS: Magnesium 2.3 mg/dL (1.7-2.3)
[2024-12-18] MEDS: cefepime 1,000 mg SDV 1000 MG IVP (14:39)
[2024-12-18 23:37] LABS: Glucose Urine UA 3+ (Normal); Nitrate Urine Negative (Negative)
[2024-12-18 23:42] LABS: Add Urine Microscopic? YES
[2024-12-18 23:45] LABS: Specific Gravity, Urine 1.034 (1.005-1.030)
[2024-12-19] VITALS (57 sets, daily range): BP systolic 114–163; BP diastolic 61–112; PULSE 83–147; RESP 12–29; TEMP 36.2–36.8; O2SAT 90–100
[2024-12-19] MEDS: cefepime 1,000 mg SDV 1000 MG IVP ×2 (01:31→14:54)
[2024-12-19 04:51] LABS: Hematocrit 33.7 % (37-53); Hemoglobin 10.30 g/dL (11.27-16.99); Mean Corpuscular HGB Conc 30.6 g/dL (30-55); Mean Corpuscular Hemoglobin 30.9 pg (27-33); Mean Corpuscular Volume 101.2 fl (82-101); Nucleated Red Blood Cells % 0 %; Platelet Count 184 10^3/cmm (157-399); Red Blood Count 3.33 10^6/uL (3.85-5.65); White Blood Count 12.77 10^3/uL (3.29-11.43)
[2024-12-19] MEDS: methylPREDNISolone sod succ 40 mg/mL INJ IVP ×4 (05:11→23:17)
[2024-12-19 05:24] LABS: Alanine Aminotransferase 19 U/L (0-41); Albumin Level 3.1 g/dL (3.5-5.2); Alkaline Phosphatase 129 U/L (40-130); Anion Gap 20.0 (5-19); Aspartate Amino Transferase 11 U/L (0-40); Blood Urea Nitrogen 18 mg/dL (8-23); Calcium 8.3 mg/dL (8.5-10.5); Carbon Dioxide 19 mmol/L (22-29); Chloride 106 mmol/L (98-107); Creatinine Clr Calc Pharmacy 92.1315; Globulin 2.1 g/dL (1.3-4.6); Glucose 180 mg/dL (65-115); Osmolality Calculated 298 mOsm/kg (285-295); Potassium 4.0 mmol/L (3.5-5.1); Sodium 141 mmol/L (136-145); Total Protein 5.2 g/dL (6.6-8.7)
[2024-12-19] MEDS: pantoprazole 40 mg SDV IVP (11:49)
--- NOTE | 2024-12-19 12:08 | P.PN_ITS ---
Subjective 2 Subjective: His breathing is gradually improving. Denies any new symptoms. Redness in his legs with mild improvement. Vitals/I&O/Wt Last Vital Signs Temp 97.7 F 12/19/24 07:30 Pulse 136 H 12/19/24 10:03 Resp 29 H 12/19/24 10:00 BP 124/61 12/19/24 10:00 Pulse Ox 100 12/19/24 10:03 O2 Del Method BiPAP 12/19/24 10:00 O2 Flow Rate 1 12/19/24 02:20 FiO2 30 12/19/24 10:03 12/18/24 12/19/24 12/19/24 22:59 06:59 14:59 Intake Total 450 / 3681.67 250 / 3931.67 Output Total 525 / 525 500 / 500 Balance 450 / 3681.67 -275 / 3406.67 -500 / -500 Weight last 48 hrs Weight 73.936 kg Weight 74.389 kg Physical Exam 2 Const: COMMON NORMALS: patient oriented x3 and alert GENERAL APPEARANCE: c ooperative; not diaphoretic ORIENTATION/CONSCIOUSNESS: Yes awake HENMT: COMMON NORMALS: oropharynx normal Neck/C-Spine: COMMON NORMALS: no JVD Resp: COMMON NORMALS: normal respiratory effort and clear to auscultation bilaterally AUSCULTATION: clear to auscultation bilaterally, no wheezes and diminished lung sounds Cardio: COMMON NORMALS: no JVD, regular rhythm, S1 normal heart sound present, S2 normal heart sound present and No murmurs present (Cardio) RHYTHM: regular rhythm HEART SOUNDS: S1 normal heart sound present and S2 normal heart sound present GI: COMMON NORMALS: Normal to inspection, nondistended, normoactive bowel sounds present, Soft to palpation and non-tender PALPATION: Yes Soft to palpation Extremity: COMMON NORMALS: no joint enlargement and no pedal edema Neuro: COMMON NORMALS: patient oriented x3 and moves all extremities S ENSORIUM/ORIENTATION: Yes alert Skin: OTHER: Redness of bilateral lower extremities below the knees 1+ edema. Cellulitis superimposed on chronic venous stasis. Some cracking and dryness of the skin. Data 12/19/24 04:30 12/19/24 04:30 Micro: Microbiology 12/18/24 08:55 Blood Culture - Preliminary Blood NEGATIVE TO DATE 12/18/24 08:37 Blood Culture - Preliminary Blood NEGATIVE TO DATE A&P Assessment and plan 1. COPD with acute exacerbation: COPD exacerbation : Severe exacerbation of COPD-asthma overlap syndrome. Some gradual improvement. Able to temporarily wean off BiPAP. However, still with tachypnea, very diminished air entry. Continue IV corticosteroid. Acute respiratory failure with hypoxia with COPD-asthma overlap exacerbation, diminished drainage, cough, dyspnea, hypoxemia, requiring BiPAP. Presents with dyspnea; recent admission for asthma/COPD exacerbation. Discussed with nursing, supervisor case loading. - Continue without de-escalation on IV corticosteroids (Solu-Medrol 40 mg q6h), monitor for risk of hyperglycemia, HTN, gastritis, encephalopathy. Noted hyperglycemia. Add sliding scale 7, 5 units Lantus. - Provide breathing treatments -BiPAP support as needed, wean down as tolerating. - Continue oxygen support; wean as tolerated - Monitor in ICU for now given persistent need for BiPAP, respiratory failure. 2. Sepsis: Improving sepsis. Leukocytosis down. Continues to have tachycardia. Maintaining blood pressure. Subjectively feeling somewhat better. Reviewed vitals, CBC, CMP. Reviewed blood culture, preliminary culture negative. Reviewed respiratory viral panel. Reviewed UA, unremarkable. Continue cefepime and vancomycin. Monitor for risk of acute encephalopathy, MICHELLE. C. difficile. - Reassess blood counts - Repeat lactate (down to 2.5 after fluid resuscitation) - Continue supportive care including fluids as indicated Possible cellulitis of bilateral lower extremities : Bilateral lower extremities appeared erythematous; worse than usual per patient; possible cellulitis considered, possibly superimposed on chronic venous stasis. - Continue antibiotic coverage targeting possible cellulitis - Include methicillin-resistant Staphylococcus aureus (MRSA) coverage given recent hospitalization Plan: Acute anemia: Hemoglobin down to 10.3 on review. Recheck hemoglobin. Therapeutic Lovenox held for now pending reassessment. Lactic acidosis : With improvement after fluid resuscitation. Continue to treat infection. Ectopic atrial tachycardia : Electrocardiogram (EKG) showed ectopic atrial tachycardia with premature ventricular contractions (PVCs). Resume metoprolol. Body ache: Check CK, hold statin for now Dysuria : Patient reported burning with urination. - Attempt to obtain urine sample for evaluation Follow-up : Ongoing inpatient monitoring and reassessment described. - Reassess clinically after initiation of IV corticosteroids, antibiotics, and supportive care PDMP PDMP Reviewed: Not Reviewed Attestations 2 Medical Necessity Statement*: Continue admit for assessment management of acute respiratory failure. Diagnoses COPD with acute exacerbation J44.1 Sepsis A41.9
[2024-12-19 12:44] LABS: Hemoglobin 10.40 g/dL (11.27-16.99)
[2024-12-19] MEDS: HYDROcodone-acetaminophen 7.5-325 mg Tablet 1 TAB PO ×2 (12:44→17:28)
[2024-12-19] MEDS: metoprolol succinate ER (24 HR) 25 mg Tablet 12.5 MG PO ×2 (12:45→17:28)
[2024-12-19] MEDS: insulin glargine 100 units/1 mL 5 UNIT SUBCUT (13:12)
[2024-12-19 14:59] LABS: Bacillus cereus group Not Detected (NOT DETECT); Bacillus subtillis group Not Detected (NOT DETECT); Corynebacterium Not Detected (NOT DETECT); Cutibacterium acnes (P.acnes) Not Detected (NOT DETECT); Enterococcus faecalis Not Detected (NOT DETECT); Enterococcus faecium Not Detected (NOT DETECT); Listeria Not Detected (NOT DETECT); Micrococcus Not Detected (NOT DETECT); Pan Candida Not Detected (NOT DETECT); Pan Gram-Negative Not Detected (NOT DETECT); Staphylococcus lugdunensis Not Detected (NOT DETECT); Staphylococcus species Detected (NOT DETECT); Streptococcus anginosus group Not Detected (NOT DETECT); Streptococcus pyogenes Not Detected (NOT DETECT); Streptococcus species Not Detected (NOT DETECT); mecC Not Detected (NOT DETECT)
[2024-12-19 15:09] LABS: Staphylococcus epidermidis Detected (NOT DETECT); mecA Detected (NOT DETECT)
[2024-12-19] MEDS: brimonidine 0.2% Op Soln 5 mL Btl 1 DROP EYE-BOTH (17:29)
[2024-12-19] MEDS: insulin glargine 100 units/1 mL 20 UNIT SUBCUT (20:31)
--- NOTE | 2024-12-19 21:07 | PC.NURSE ---
Hyperglycemia Contacted Dr. Hodges in regards to patient have a blood sugar of 503, received orders at this time for a one time dose of 20 units of Lantus in addition to the already ordered sliding scale Humalog. MAR reflected to show orders.
[2024-12-20] VITALS (46 sets, daily range): BP systolic 125–161; BP diastolic 75–111; PULSE 74–114; RESP 14–29; TEMP 36.6; O2SAT 90–100
[2024-12-20] MEDS: cefepime 1,000 mg SDV 1000 MG IVP ×2 (01:01→14:00)
[2024-12-20 04:04] LABS: Hematocrit 31.6 % (37-53); Hemoglobin 9.60 g/dL (11.27-16.99); Mean Corpuscular HGB Conc 30.4 g/dL (30-55); Mean Corpuscular Hemoglobin 30.5 pg (27-33); Mean Corpuscular Volume 100.3 fl (82-101); Nucleated Red Blood Cells % 0 %; Platelet Count 171 10^3/cmm (157-399); Red Blood Count 3.15 10^6/uL (3.85-5.65); White Blood Count 11.89 10^3/uL (3.29-11.43)
[2024-12-20 04:26] LABS: Alanine Aminotransferase 15 U/L (0-41); Albumin Level 3.1 g/dL (3.5-5.2); Alkaline Phosphatase 123 U/L (40-130); Anion Gap 15.5 (5-19); Aspartate Amino Transferase 8 U/L (0-40); Blood Urea Nitrogen 17 mg/dL (8-23); Calcium 8.7 mg/dL (8.5-10.5); Carbon Dioxide 22 mmol/L (22-29); Chloride 105 mmol/L (98-107); Creatinine Clr Calc Pharmacy 105.0128; Globulin 2.1 g/dL (1.3-4.6); Glucose 163 mg/dL (65-115); Osmolality Calculated 293 mOsm/kg (285-295); Potassium 3.5 mmol/L (3.5-5.1); Sodium 139 mmol/L (136-145); Total Protein 5.2 g/dL (6.6-8.7)
[2024-12-20] MEDS: methylPREDNISolone sod succ 40 mg/mL INJ IVP (05:29)
[2024-12-20] MEDS: metoprolol succinate ER (24 HR) 25 mg Tablet 12.5 MG PO ×2 (08:00→17:25)
[2024-12-20] MEDS: brimonidine 0.2% Op Soln 5 mL Btl 1 DROP EYE-BOTH ×2 (08:00→17:26)
[2024-12-20] MEDS: HYDROcodone-acetaminophen 7.5-325 mg Tablet 1 TAB PO ×2 (09:26→18:14)
--- NOTE | 2024-12-20 09:59 | P.PN_ITS ---
Subjective 2 Subjective: He reports he is improving significantly and getting closer to his baseline. Has been able to wean off BiPAP and on room air. Vitals/I&O/Wt Last Vital Signs Temp 97.9 F 12/20/24 07:00 Pulse 92 12/20/24 08:37 Resp 18 12/20/24 08:37 BP 138/94 12/20/24 08:30 Pulse Ox 99 12/20/24 08:37 O2 Del Method Room Air 12/20/24 08:37 O2 Flow Rate 1 12/19/24 02:20 FiO2 30 12/19/24 10:03 12/19/24 12/20/24 12/20/24 22:59 06:59 14:59 Intake Total 240 / 730 250 / 980 240 / 240 Output Total 550 / 1050 Balance 240 / 230 -300 / -70 240 / 240 Weight last 48 hrs Weight 73.981 kg Weight 73.936 kg Physical Exam 2 Const: COMMON NORMALS: patient oriented x3 and alert GENERAL APPEARANCE: c ooperative; not diaphoretic ORIENTATION/CONSCIOUSNESS: Yes awake HENMT: COMMON NORMALS: oropharynx normal Neck/C-Spine: COMMON NORMALS: no JVD Resp: COMMON NORMALS: normal respiratory effort AUSCULTATION: no wheezes and diminished lung sounds Cardio: COMMON NORMALS: no JVD, regular rhythm, S1 normal heart sound present, S2 normal heart sound present and No murmurs present (Cardio) RHYTHM: regular rhythm HEART SOUNDS: S1 normal heart sound present and S2 normal heart sound present GI: COMMON NORMALS: Normal to inspection, nondistended, normoactive bowel sounds present, Soft to palpation and non-tender PALPATION: Yes Soft to palpation Extremity: COMMON NORMALS: no joint enlargement and no pedal edema Neuro: COMMON NORMALS: patient oriented x3 and moves all extremities S ENSORIUM/ORIENTATION: Yes alert Skin: COMMON NORMALS: no rashes or lesions noted GENERAL SKIN EXAM: no rashes or lesions noted and no mottling OTHER: Redness of bilateral lower extremities below the knees 1+ edema. Cellulitis superimposed on chronic venous stasis. Some cracking and dryness of the skin. Data 12/20/24 03:44 12/20/24 03:44 Micro: Microbiology 12/18/24 08:37 Blood Culture - Preliminary Blood NEGATIVE TO DATE 12/18/24 08:55 Blood Culture - Preliminary Blood Staphylococcus epidermidis A&P Assessment and plan 1. COPD with acute exacerbation: COPD exacerbation : Improving. Able to wean off BiPAP. Air entry still very diminished. Gets slightly dyspneic after speaking. Will see if he can stay off BiPAP. Will switch over to oral corticosteroids with prednisone 60 mg daily and will need a taper at discharge. Home O2 evaluation. Transfer requested to medical surgical floor as well. If he continues to do well discussed with him discharge home in the morning. Discussed with nursing, catalytic case operator, RT. Acute respiratory failure with hypoxia with COPD-asthma overlap exacerbation, diminished drainage, cough, dyspnea, hypoxemia, requiring BiPAP. Presents with dyspnea; recent admission for asthma/COPD exacerbation. - breathing treatments - BiPAP support as needed, wean down as tolerating. - Continue oxygen support; wean as tolerated - Monitor in ICU for now given persistent need for BiPAP, respiratory failure. 2. Sepsis: Improving sepsis. Leukocytosis down. Continues to have tachycardia. Maintaining blood pressure. Subjectively feeling somewhat better. Reviewed vitals, CBC, CMP. Reviewed blood culture, preliminary positive for 1 out of 4 bottles gram-positive cocci, identified as Staph epidermidis, likely contamination. Respiratory viral panel. UA unremarkable. Sputum culture uncollected. Continue cefepime and vancomycin. Monitor for risk of acute encephalopathy, MICHELLE. C. difficile. - Reassess blood counts, monitor vitals Cellulitis of bilateral lower extremities : Showing gradual improvement. Improving and subsiding erythema. Cellulitis superimposed on chronic venous stasis. Bilateral lower extremities appeared very erythematous; worse than usual per patient - Continue antibiotic coverage targeting possible cellulitis - Include methicillin-resistant Staphylococcus aureus (MRSA) coverage given recent hospitalization Plan: Acute anemia: Hemoglobin down to 10.3 on review. Recheck hemoglobin around 10 so far has been restarted on Lovenox. Repeat CBC. Obtain Hemoccult. Lactic acidosis : Resolved Ectopic atrial tachycardia : Electrocardiogram (EKG) showed ectopic atrial tachycardia with premature ventricular contractions (PVCs). Resume metoprolol. Body ache: Resolved. Reviewed CK. Consider resumption of statin, in case of recurrence consider statin related myopathy. Dysuria : Patient reported burning with urination. Reviewed UA, unremarkable. Follow-up : Ongoing inpatient monitoring and reassessment described. - Reassess clinically after initiation of IV corticosteroids, antibiotics, and supportive care PDMP PDMP Reviewed: Not Reviewed Attestations 2 Medical Necessity Statement*: Continue admit for assessment management of severe exacerbation of COPD-asthma overlap. Resolving respiratory failure. and High MDM includes amount and/or complexity of data reviewed/ordered [ resulted lab(s)/test(s), ordered lab(s)/test(s) and other healthcare professional discussion] as documented Diagnoses COPD with acute exacerbation J44.1 Sepsis A41.9
[2024-12-20] MEDS: pantoprazole 40 mg SDV IVP (10:19)
[2024-12-20] MEDS: dorzolamide 2% Op Soln 10 mL Btl 1 DROP EYE-BOTH (17:25)
[2024-12-20] MEDS: ATORVASTATIN 10 MG TABLET 20 MG PO (17:25)
[2024-12-20] MEDS: insulin glargine 100 units/1 mL 20 UNIT SUBCUT (20:01)
--- NOTE | 2024-12-20 23:35 | PC.NURSE ---
Vacomycin Through: Pharmacy notified of a vancomycin through greater than 20, Pharmacist stated to hold this dose and they will draw a random level in the morning and readjust.
[2024-12-21] VITALS (18 sets, daily range): BP systolic 100–165; BP diastolic 76–127; PULSE 74–138; RESP 14–26; TEMP 36.4–37; O2SAT 90–99
[2024-12-21] MEDS: cefepime 1,000 mg SDV 1000 MG IVP (01:03)
[2024-12-21 04:06] LABS: Hematocrit 29.9 % (37-53); Hemoglobin 9.30 g/dL (11.27-16.99); Mean Corpuscular HGB Conc 31.1 g/dL (30-55); Mean Corpuscular Hemoglobin 30.9 pg (27-33); Mean Corpuscular Volume 99.3 fl (82-101); Nucleated Red Blood Cells % 0 %; Platelet Count 166 10^3/cmm (157-399); Red Blood Count 3.01 10^6/uL (3.85-5.65); White Blood Count 10.42 10^3/uL (3.29-11.43)
[2024-12-21 04:26] LABS: Ferritin 208 ng/mL (30-400); Iron 39 ug/dL (59-158); Total Iron Binding Capacity 210 mcg/dl; Unsaturated Iron Binding 171 ug/dL (112-347)
[2024-12-21 04:32] LABS: Alanine Aminotransferase 15 U/L (0-41); Albumin Level 3.3 g/dL (3.5-5.2); Alkaline Phosphatase 116 U/L (40-130); Anion Gap 15.9 (5-19); Aspartate Amino Transferase 9 U/L (0-40); Blood Urea Nitrogen 24 mg/dL (8-23); Calcium 8.8 mg/dL (8.5-10.5); Carbon Dioxide 25 mmol/L (22-29); Chloride 104 mmol/L (98-107); Creatinine Clr Calc Pharmacy 105.0406; Globulin 1.5 g/dL (1.3-4.6); Glucose 175 mg/dL (65-115); Osmolality Calculated 300 mOsm/kg (285-295); Potassium 3.9 mmol/L (3.5-5.1); Sodium 141 mmol/L (136-145); Total Protein 4.8 g/dL (6.6-8.7)
[2024-12-21] MEDS: metoprolol succinate ER (24 HR) 25 mg Tablet 12.5 MG PO (08:54)
[2024-12-21] MEDS: brimonidine 0.2% Op Soln 5 mL Btl 1 DROP EYE-BOTH (08:54)
[2024-12-21] MEDS: HYDROcodone-acetaminophen 7.5-325 mg Tablet 1 TAB PO (08:54)
[2024-12-21] MEDS: dorzolamide 2% Op Soln 10 mL Btl 1 DROP EYE-BOTH (08:55)
--- NOTE | 2024-12-21 09:07 | PC.SOCIAL ---
IMM Updated Updated pt on IMM. No questions voiced. Provided pt a copy. Initialed, dated, & timed a copy & placed in chart.
[2024-12-21] MEDS: pantoprazole 40 mg SDV IVP (10:56)
--- NOTE | 2024-12-21 11:14 | P.DS_ITS ---
Discharge Providers Date of Admission: 12/18/24 10:00 Date of Discharge: December 21, 2024 Attending Provider at Admission: Shaka Chapman Attending Provider at Discharge: Harpal Cotton MD Primary Care Provider: Natalia Alvarado NP Diagnoses at Discharge Discharge Diagnosis 1. COPD with acute exacerbation: 2. Sepsis: Reason for Visit Reason for Visit: sob Hospital Course Hospital Course This is a 64-year-old male with past medical history of COPD, pulmonary embolism on Eliquis, type 2 diabetes, pulmonary sarcoidosis, hyperlipidemia, hypertension, CAD who presents to [facility] for shortness of breath Patient was admitted to [facility] for acute hypoxic respiratory failure for COPD, asthma, received IV steroids, intermittent IV diuresis, overall clinically improved. Will be discharged with a close follow-up with pulmonary as outpatient Sepsis secondary to bilateral extremity cellulitis, received IV antibiotics, overall clinically improved, will be discharged on oral antibiotics Patient 1 out of 4 blood cultures positive for Staphylococcus epidermidis, no history of artificial hardware, discussed contamination versus real infection, so far repeat blood cultures negative, remains afebrile, had clinically improving. Discussed risk and benefits of all options, he voiced understanding, all questions answered, shared decision making, agreed to proceed with noninvasive management. If repeat blood cultures are negative, he is agreeable to follow-up with primary care provider as outpatient, and that this is likely contamination. However if his repeat blood cultures are positive or he is symptomatic with fevers or chills he should go to the emergency room. Acute on chronic anemia, follow-up with primary care provider as outpatient, recheck hemoglobin as outpatient, if any bloody or black stools go to the emergency room - Lantus 15 units at bedtime -Please monitor your blood sugars closely -Monitor your blood sugars 3 times daily as after meals -Please record your blood sugars, and a blood sugar log -For your NovoLog -Please inject blood sugar after meals based on sliding scale provided -Do not inject insulin if you do not eat as hypoglycemia kills -This is a NovoLog sliding scale -Insulin sliding ?fingerstick? Insulin ?141-180?0 units/sq 181-220?2 units/sq ?221-260?4 units/sq ?261-300 6 units/sq ?301-350?8 units/sq ?351-400 10 units/sq ?401-450?12 units/sq >450? 14units/sq -If your blood sugar is greater than 500 go to the emergency room -If your blood sugar is less than 60 or at anytime you feel lightheaded or dizzy or diaphoretic or have chest palpitations check your blood sugar, and eat a hard candy or drink orange juice and go immediately to the emergency room -Remember hypoglycemia kills, so if his blood sugar is less than 60 we have to increase it by taking in a sugary meal such as a hard candy or orange juice and go to the emergency room -If you have any questions please call us where here to help - For your staphylococcal epidermidis positive blood cultures, repeat blood cu ltures have been drawn, if they are positive we will call you back to the hospital, if you develop fevers or chills please go to the emergency room - Take prednisone taper -Cardiac Diet -Resume usual activity Physical Exam Const: COMMON NORMALS: no acute distress and patient oriented x3 Resp: COMMON NORMALS: normal respiratory effort, No retractions, No use of accessory muscles and clear to auscultation bilaterally AUSCULTATION: clear to auscultation bilaterally Cardio: COMMON NORMALS: regular rate, regular rhythm, S1 normal heart sound present and S2 normal heart sound present RATE: regular rate RHYTHM: regular rhythm HEART SOUNDS: S1 normal heart sound present and S2 normal heart sound present GI: COMMON NORMALS: Normal to inspection, nondistended, normoactive bowel sounds present and non-tender Extremity: COMMON NORMALS: no pedal edema NARRATIVE EXTREMITY EXAM: Areas of bilateral lower extremity cellulitis significantly improving Neuro: COMMON NORMALS: patient oriented x3 Psych: COMMON NORMALS: mental status grossly normal Discharge Data Studies Completed and Pending Completed Studies During Hospitalization Category Date Time Status XR chest 1V portable [id number] Stat Exams 12/18/24 06:09 Completed Pending at discharge Category Date Time Status Blood Culture Stat Lab 12/18/24 08:55 Results Blood Culture Stat Lab 12/21/24 09:59 Results Occult Blood Stool [Immunochemical Fecal OCB] Routine Lab 12/20/24 18:54 Uncollected Sputum Culture and Gram Stain Routine Lab 12/18/24 11:09 Uncollected Radiology Impressions Chest X-Ray 12/18/24 06:09 IMPRESSION: Stable chest with no acute abnormality. Laboratory Results WBC 10.42 10^3/uL (3.29-11.43) 12/21/24 03:23 RBC 3.01 10^6/uL (3.85-5.65) L 12/21/24 03:23 Hgb 9.30 g/dL (11.27-16.99) L 12/21/24 03:23 Hct 29.9 % (37-53) L 12/21/24 03:23 MCV 99.3 fl (82-101) 12/21/24 03:23 MCH 30.9 pg (27-33) 12/21/24 03:23 MCHC 31.1 g/dL (30-55) 12/21/24 03:23 RDW 15.5 % (12.1-15.1) H 12/21/24 03:23 Plt Count 166 10^3/cmm (157-399) 12/21/24 03:23 MPV 10.6 fL (7.4-10.4) H 12/21/24 03:23 Neut % (Auto) 88.8 % 12/21/24 03:23 Lymph % (Auto) 3.1 % 12/21/24 03:23 [place] % (Auto) 7.2 % 12/21/24 03:23 Eos % (Auto) 0.0 % 12/21/24 03:23 Baso % (Auto) 0.1 % 12/21/24 03:23 Neut # (Auto) 9.26 10^3/uL (1.8-7.7) H 12/21/24 03:23 Lymph # (Auto) 0.3 10^3/uL (0.8-4.8) L 12/21/24 03:23 [place] # (Auto) 0.8 10^3/uL (0.2-0.9) 12/21/24 03:23 Eos # (Auto) 0.0 10^3/uL (0.0-0.8) 12/21/24 03:23 Baso # (Auto) 0.0 10^3/uL (0.0-0.1) 12/21/24 03:23 Nucleated RBC % (auto) 0 % 12/21/24 03:23 Nucleated RBCs # 0.0 /100WBC 12/21/24 03:23 Specimen Type Arterial 12/18/24 06:16 Sample Site Radial, right 12/18/24 06:16 ABG pH 7.40 (7.35-7.45) 12/18/24 06:16 ABG pCO2 35.4 mmHg (35-45) 12/18/24 06:16 ABG pO2 76.5 mmHg (80.0-100.0) L 12/18/24 06:16 ABG PO2/FiO2 Ratio 212 12/18/24 06:16 ABG HCO3 21.7 mmol/L (22-26) L 12/18/24 06:16 ABG O2 Saturation 96.5 12/18/24 06:16 ABG Base Excess -2.6 mmol/L (-2.0-2.0) L 12/18/24 06:16 Juan Antonio Test Pos 12/18/24 06:16 A-a O2 Gradient 17.7 mmHg (5-10) H 12/18/24 06:16 Hematocrit 41.6 % (42-52) L 12/18/24 06:16 Hgb O2 Saturation 93.8 % (95-100) L 12/18/24 06:16 Carboxyhemoglobin 1.9 %THgb (0.4-20.1) 12/18/24 06:16 Methemoglobin 1.0 % (0.4-1.5) 12/18/24 06:16 Total Hemoglobin 13.6 g/dL (14-18) L 12/18/24 06:16 Sodium 136.0 mmol/L (131-143) 12/18/24 06:16 Potassium 4.6 mmol/L (3.5-5.0) 12/18/24 06:16 Glucose 170.0 mg/dL (70-115) H 12/18/24 06:16 Ionized Calcium 1.2 mmol/L (1.1-1.4) 12/18/24 06:16 O2 Delivery Device Nc 12/18/24 06:16 O2 Liters/Min 40.0 % 12/18/24 06:16 FiO2 36.0 % 12/18/24 06:16 Director Of Teacher Education ID [email or web address] 12/18/24 06:16 Sodium 141 mmol/L (136-145) 12/21/24 03:23 Potassium 3.9 mmol/L (3.5-5.1) 12/21/24 03:23 Chloride 104 mmol/L (98-107) 12/21/24 03:23 Carbon Dioxide 25 mmol/L (22-29) 12/21/24 03:23 Anion Gap 15.9 (5-19) 12/21/24 03:23 BUN 24 mg/dL (8-23) H 12/21/24 03:23 Creatinine 0.7 mg/dL (0.7-1.2) 12/21/24 03:23 GFR Calculation 114.3 mL/min (90-130) 12/21/24 03:23 Glucose 175 mg/dL (65-115) H 12/21/24 03:23 POC Glucose 172 mg/dL (70-110) H 12/21/24 11:06 Calculated Osmolality 300 mOsm/kg (285-295) H 12/21/24 03:23 Lactic Acid 4.9 mmol/L (0.5-2.2) H* 12/18/24 06:36 Lactic Acid (Sepsis) 2.5 mmol/L (0.5-2.2) H 12/18/24 09:09 Calcium 8.8 mg/dL (8.5-10.5) 12/21/24 03:23 Magnesium 2.3 mg/dL (1.7-2.3) 12/18/24 06:36 Iron 39 ug/dL (59-158) L 12/21/24 03:23 TIBC 210 mcg/dl 12/21/24 03:23 % Saturation 18.5 % (20-50) L 12/21/24 03:23 Unsat Iron Binding 171 ug/dL (112-347) 12/21/24 03:23 Ferritin 208 ng/mL (30-400) 12/21/24 03:23 Total Bilirubin 0.2 mg/dL (0.15-1.2) 12/21/24 03:23 AST 9 U/L (0-40) 12/21/24 03:23 ALT 15 U/L (0-41) 12/21/24 03:23 Alkaline Phosphatase 116 U/L (40-130) 12/21/24 03:23 Creatine Kinase 22 U/L (39-308) L 12/19/24 04:30 Total Protein 4.8 g/dL (6.6-8.7) L 12/21/24 03:23 Albumin 3.3 g/dL (3.5-5.2) L 12/21/24 03:23 Globulin 1.5 g/dL (1.3-4.6) 12/21/24 03:23 Urine Color Yellow (Yellow) 12/18/24 23:25 Urine Appearance Clear (CLEAR) 12/18/24 23:25 Urine pH 5.0 (5-7) 12/18/24 23:25 Ur Specific [place] 1.034 (1.005-1.030) H 12/18/24 23:25 Urine Protein Negative (Negative) 12/18/24 23:25 Urine Glucose (UA) 3+ (Normal) H 12/18/24 23:25 Urine Ketones 3+ (Negative) H 12/18/24 23:25 Urine Blood Negative (Negative) 12/18/24 23:25 Urine Nitrate Negative (Negative) 12/18/24 23:25 Urine Bilirubin Negative (Negative) 12/18/24 23:25 Urine Urobilinogen 0.2 mg/dL (Negative) 12/18/24 23:25 Ur Leukocyte Esterase Negative (Negative) 12/18/24 23:25 Urine RBC 0-2 /hpf (0-2) 12/18/24 23:25 Urine WBC 6-10 /hpf (0-5) 12/18/24 23:25 Ur Squamous Epith Cells 0-5 /hpf (0-5) 12/18/24 23:25 Amorphous Sediment Not Reportable 12/18/24 23:25 Urine Bacteria None seen /hpf (NONE) 12/18/24 23:25 Hyaline Casts 3.71 /lpf 12/18/24 23:25 Vancomycin Trough 58.8 ug/mL (10-15) H* 12/21/24 09:59 Influenza A (PCR) Negative (Negative) 12/18/24 06:57 Influenza Type B (PCR) Negative (Negative) 12/18/24 06:57 RSV (PCR) Negative (Negative) 12/18/24 06:57 SARS-CoV-2 (PCR) Negative (Negative) 12/18/24 06:57 Vitals Last Vital Signs Temp 97.5 F L 12/21/24 07:00 Pulse 106 H 12/21/24 10:00 Resp 25 H 12/21/24 10:00 BP 100/76 12/21/24 10:00 Pulse Ox 99 12/21/24 10:00 O2 Del Method Room Air 12/21/24 10:00 O2 Flow Rate 1 12/19/24 02:20 FiO2 30 12/19/24 10:03 Discharge Plan Discharge Patient Disposition: Home Condition: Stable Prescriptions: New prednisone 10 mg tablet See Rx Instructions .ROUTE .COMPLEX Qty: 53 0RF Rx Instructions: 4tab daily for 5 days, 3tab for 5 days, 2tab for 5 days, 1 tab for 5 days, 0.5 tab for 5 days insulin aspart U-100 [Novolog FlexPen U-100 Insulin] 100 unit/mL (3 mL) insulin pen See Rx Instructions .ROUTE .COMPLEX Qty: 15 0RF Rx Instructions: Inject, subcut, 3 times daily, after meals, based on low-dose insulin sliding scale insulin glargine [Basaglar KwikPen U-100 Insulin] 100 unit/mL (3 mL) insulin pen 15 unit SUBCUT QPM 30 Days Qty: 15 0RF (DME) glucometer testing kit See Rx Instructions .Route .MEDSUPPLY Qty: 1 0RF Rx Instructions: check BS three times daily after meals strips#100 lancets#100 Continued simvastatin 40 mg tablet 40 mg PO QPM Qty: 30 2RF Jardiance 10 mg tablet 10 mg PO DAILY Qty: 30 6RF metoprolol succinate 25 mg tablet extended release 24 hr 12.5 mg PO BID Qty: 60 2RF aspirin 81 mg tablet 81 mg PO DAILY Trelegy Ellipta 100-62.5-25 mcg blister with device 1 inh inhalation DAILY Qty: 28 0RF (DME) Nebulizer with tubing and filter See Rx Instructions .Route .MEDSUPPLY Qty: 1 0RF Rx Instructions: as directed nitroglycerin 0.4 mg tablet, sublingual 0.4 mg sublingual Q5M PRN (Reason: chest pain) Qty: 30 2RF Rx Instructions: do not exceed 3 doses per episode furosemide 40 mg tablet 40 mg PO QAM Qty: 30 5RF cyclobenzaprine 10 mg tablet 10 mg PO TID PRN (Reason: muscle spasms) Qty: 90 0RF gabapentin 100 mg capsule 100 mg PO BID Qty: 60 0RF Eliquis 5 mg tablet 5 mg PO BID Qty: 60 2RF albuterol sulfate 2.5 mg /3 mL (0.083 %) solution for nebulization 2.5 mg inhalation Q4H PRN (Reason: Wheezing) Qty: 30 3RF imiquimod 5 % cream in packet See Rx Instructions .ROUTE .COMPLEX Rx Instructions: APPLY TO AFFECTED AREA ON LEFT NECK ONCE DAILY TUESDAY-TUESDAY (OFF WEEKENDS) FOR SIX WEEKS. WILL CAUSE REDNESS AND IRRITATION. brimonidine 0.2 % drops 1 drp ophthalmic (eye) BID dorzolamide 2 % drops 1 drp ophthalmic (eye) BID albuterol sulfate [Ventolin HFA] 90 mcg/actuation HFA aerosol inhaler 2 puff INHALATION Q6H PRN (Reason: breathing) Qty: 8.5 1RF hydrocodone-acetaminophen 7.5-325 mg tablet 1 tab PO Q4H PRN (Reason: Moderate Pain (Scale Score 5-6)) buspirone 7.5 mg tablet 7.5 mg PO TID PRN (Reason: Anxiety) Discontinued losartan 50 mg tablet 50 mg PO DAILY Qty: 90 1RF sulfamethoxazole-trimethoprim [Bactrim DS] 800-160 mg Tablet 1 tab PO .EVERY OTHER DAY prednisone 20 mg tablet See Rx Instructions .ROUTE .COMPLEX Qty: 30 0RF Rx Instructions: Take 40 mg daily x 4 days then switch back to 20 mg thereafter prednisone 5 mg tablet See Rx Instructions .ROUTE .COMPLEX Rx Instructions: TAKE 10 TABLETS BY MOUTH FOR 2 DAYS, THEN 8 TABLETS FOR 2 DAYS, THEN 6 TABLETS FOR 2 DAYS, THEN 4 TABLETS FOR 2 DAYS, THEN 2 TABLETS FOR 2 DAYS, THEN 1 TABLET FOR 2 DAYS. No Action diazepam [Valium] 5 mg tablet 5 mg PO BID PRN (Reason: anxiety) Qty: 2 0RF Rx Instructions: take one 30 min before scan, and one when you get to the hospital. hydrocodone-acetaminophen 5-325 mg tablet 1 tab PO BID 7 Days Qty: 14 0RF Discharge Order = DC NOW: Discharge Order (Routine); Ordered 12/21/24 Ordered By: Harpal Cotton Referrals: Jacinto Freed MD [Physician, Pulmonology] - 1 week Referral Note: COPD-asthma with exacerbation, hospitalization with respiratory failure 12-28-2024, at 9:15 a.m. Aleyda,Dony H, DO [Physician, Orthopedics] - 1-3 days Referral Note: 12/25/2024, 3:15 p.m. Natalia Alvarado, ANNA [Primary Care Provider, Family Practice] Referral Note: Clinic should call you with this appointment. Please call to schedule if you do not hear from them. Discharge Diet: Cardiac Discharge Activity: Resume usual activity Patient Instructions: Doxycycline (By mouth) (Acticlate, Adoxa, Avidoxy, Monodox, Doryx), Prednisone (By mouth) (Prednisone Intensol, Prednicot, Deltasone, Anitra), Insulin Aspart, Recombinant (By injection) (Novolog, Novolog..., Insulin Glargine (By injection) (Lantus, Lantus SoloStar, Toujeo, Semglee), How to Check your Blood Sugar (GEN), Opioid Safety, Patient Portal & Enrico Instructions Activity Restrictions/Additional Instructions: - Lantus 15 units at bedtime -Please monitor your blood sugars closely -Monitor your blood sugars 3 times daily as after meals -Please record your blood sugars, and a blood sugar log -For your NovoLog -Please inject blood sugar after meals based on sliding scale provided -Do not inject insulin if you do not eat as hypoglycemia kills -This is a NovoLog sliding scale -Insulin sliding ?fingerstick? Insulin ?141-180?0 units/sq 181-220?2 units/sq ?221-260?4 units/sq ?261-300 6 units/sq ?301-350?8 units/sq ?351-400 10 units/sq ?401-450?12 units/sq >450? 14units/sq -If your blood sugar is greater than 500 go to the emergency room -If your blood sugar is less than 60 or at anytime you feel lightheaded or dizzy or diaphoretic or have chest palpitations check your blood sugar, and eat a hard candy or drink orange juice and go immediately to the emergency room -Remember hypoglycemia kills, so if his blood sugar is less than 60 we have to increase it by taking in a sugary meal such as a hard candy or orange juice and go to the emergency room -If you have any questions please call us where here to help - For your staphylococcal epidermidis positive blood cultures, repeat blood cultures have been drawn, if they are positive we will call you back to the hospital, if you develop fevers or chills please go to the emergency room - Take prednisone taper -Cardiac Diet -Resume usual activity Discharge Attestations Time Spent in Discharge Care*: greater than 30 min Quality Metrics Clinical Quality Measures [ No reported AMI, CVA or VTE this stay] Coding Level of Care Code 70432 Total time (in minutes) for Discharge: 45 Diagnoses COPD with acute exacerbation J44.1 Sepsis A41.9
--- NOTE | 2024-12-21 13:27 | PC.NURSE ---
Patient was given all discharge information along with their prescriptions. Patient's IV was taken out and patient was stable during discharge.
== END 2024-12-21 13:18 | disposition home or self-care (01) | DRG 871 ==
LOC: ER 09:52 → ICU 10:01
PROVIDERS: Admitting Provider Internal Medicine; Emergency Provider Family Medicine; Visit Provider Family Medicine
DX: A41.9 Sepsis, unspecified organism (principal); J96.01 Acute respiratory failure with hypoxia; J45.901 Unspecified asthma with (acute) exacerbation; J44.1 Chronic obstructive pulmonary disease with (acute) exacerbation; L03.116 Cellulitis of left lower limb; L03.115 Cellulitis of right lower limb; E87.20 Acidosis, unspecified; I47.19 Other supraventricular tachycardia; E11.9 Type 2 diabetes mellitus without complications; D86.89 Sarcoidosis of other sites; I25.10 Atherosclerotic heart disease of native coronary artery without angina pectoris; D64.9 Anemia, unspecified; R30.0 Dysuria; F32.A Depression, unspecified; I10 Essential (primary) hypertension; E78.5 Hyperlipidemia, unspecified; Z86.711 Personal history of pulmonary embolism; Z79.01 Long term (current) use of anticoagulants; Z95.5 Presence of coronary angioplasty implant and graft; Z79.84 Long term (current) use of oral hypoglycemic drugs; Z79.82 Long term (current) use of aspirin
CPT/HCPCS: 36415; 36416; 36600; 71045; 80051; 80053; 80202; 81001; 82330; 82550; 82728; 82805; 82962; 83540; 83550; 83605; 83735; 85018; 85025; 87040; 87077; 87150; 87186; 87205; 87637; 93005; 94640; 94660; 94664; 94760; 96365; 96372; 96375; 99291; J0692; J1650; J1815; J2470; J2543; J2919; J3372; J3373; J7030; J7050; J7512; J9999

== ENCOUNTER → 2024-12-25 13:44 | Outpatient (BNVA) | payer MEDICARE, MEDICAID, SELFPAY | PROVIDERS: Visit Provider Internal Medicine | DX: J44.9 Chronic obstructive pulmonary disease, unspecified (principal); D86.9 Sarcoidosis, unspecified; E66.9 Obesity, unspecified; Z68.26 Body mass index [BMI] 26.0-26.9, adult; Z86.711 Personal history of pulmonary embolism; Z79.01 Long term (current) use of anticoagulants; Z79.82 Long term (current) use of aspirin; J84.10 Pulmonary fibrosis, unspecified | CPT/HCPCS: 36415; 82103; 82164; 85025; 85651; 99205; 99213; 99496 ==

== ENCOUNTER 2024-12-27 16:05 | Outpatient (CLI) | payer MEDICARE, MEDICAID, SELFPAY ==
--- NOTE | 2024-12-27 16:45 | MR_ITS ---
WS: [id number] MRI LUMBAR SPINE NONCONTRAST HISTORY: Back pain COMPARISON: CT 12/04/2024, 06/27/2024 TECHNIQUE: Sagittal and axial multisequence imaging is submitted. Increasing thoracic kyphosis. Multiple thoracic fractures are identified. Anterior wedging in the thoracic spine begins at T4-T12. Vertebroplasty at T10. There is a small amount of marrow edema along the endplates of T11 and T12. T12 compression fracture has progressed since 06/27/2024. Progression of fracture at L4 with marrow edema beneath the superior endplate. Additional chronic appearing fractures at L1, L2, L3 and L5. Mild scoliosis and increased lordosis. Disc spaces are narrowed and desiccated. Conus terminates normally at L1-2 disc level. Study was terminated early due to patient discomfort. Not all sequences were obtained. L1-L2: Diffuse disc bulge and osteophytic ridging. Mild foraminal stenosis. L2-L3: Mild facet arthritis. Minimal foraminal stenosis. L3-L4: Mild disc bulging and osteophytic ridging with facet arthritis. Mild to moderate bilateral foraminal stenosis, RIGHT greater than LEFT. L4-L5: Diffuse disc bulging. Ligamentum flavum and facet arthritis. Very mild subarticular recess encroachment. Mild to moderate foraminal stenosis. L5-S1: Mild bilateral foraminal stenosis. MR/MR lumbar spine wo con* [id number] IMPRESSION: 1. Study terminated early due to patient discomfort. Not all sequences were ob tained. Breathing motion artifact on several sequences. 2. Prior vertebroplasty at T10. 3. Numerous thoracic spine compression fractures. 4. Mild marrow edema along the endplates of T11 and T12 consistent with new co mpression deformities. No retropulsion. Otherwise limited by motion. 5. Progression of fracture at L4 with marrow edema consistent with an acute fr acture. 6. Chronic appearing fractures at L1, L2, L3 and L5. 7. No high-grade central or foraminal stenosis. No retropulsion of the vertebr al bodies. 8. Diffuse facet joint arthritis and foraminal narrowing. Most significant for aminal narrowing is at L3-4 and L4-5.
== END 2024-12-27 16:06 | disposition home or self-care (01) ==
LOC: RAD 16:05
PROVIDERS: Visit Provider Orthopaedic Surgery
DX: M51.369 Other intervertebral disc degeneration, lumbar region without mention of lumbar back pain or lower extremity pain (principal); M48.56XA Collapsed vertebra, not elsewhere classified, lumbar region, initial encounter for fracture; M48.061 Spinal stenosis, lumbar region without neurogenic claudication; M47.816 Spondylosis without myelopathy or radiculopathy, lumbar region
CPT/HCPCS: 72148

== ENCOUNTER 2025-01-03 20:28 | Emergency (ER) | payer MEDICARE, MEDICAID, SELFPAY ==
[2025-01-03 20:30] VITALS: BP 138/78; PULSE 102; RESP 20; TEMP 36.8; O2SAT 100; BMI 25.8
--- OUTSIDE RECORDS SUMMARY | 2025-01-03 20:39 | XMS_ITS | Encounter Summary ---
Author Organization [facility] Address [address] [place] [phone] Phone Care Team Providers Care Guest Room Attendant Name Role Phone Refugio Bedoya Primary Care Provider [phone] Reason for Visit * Reason Comments Med Refill Encounter Details Date Type Department Care Team (Late st Contact Info) Description 10/02/2022 Refill [facility] [address] [place] [address] [phone] Kirill Keen MD [address] [place] [address] Sarcoidosis Social History Tobacco Use Types Packs/Day [...] 8:34 AM CDT Prednisone refill sent to [facility]. * Telephone Encounter - Diana Carmichael LPN - 10/04/2022 8:29 AM CDT Please advise documented in this encounter Plan of Treatment Upcoming Encounters Date Type Department Care Team (Late st Contact Info) Description 03/12/2025 1:30 PM AFTER SCHOOL PROGRAM ASSISTANT Office Visit [facility] [address] [place] [address] [phone] Kirill Keen MD [facility] [address] [place], [place] [id number] documented as of this encounter Visit Diagnoses Diagnosis Sarcoidosis documented in this encounter Care Teams Guest Room Attendant Relationship Specialty Start Date End Date Refugio Bedoya [facility] [address] [place] [address] [address] [place], [place] [id number] PCP - General 11/17/20 documented as of this encounter
--- OUTSIDE RECORDS SUMMARY | 2025-01-03 20:39 | XMS_ITS | Clinical Summary ---
Author Organization [facility] Address [address] [facility] [place] [address] Care Team Providers Care Pre School Manager Name Role Phone Migue Leo MD Unavailable [phone] Wally Manuel MD Unavailable Luis Templeton MD Unavailable [phone] Natalia Alvarado NP Primary Care Provider [phone] Allergies Active Allergy Reactions Criticality Noted Date [...] Acute midline low back pain without sciatica Surgical History Surgery Date Site/Laterality Comments CHOLECYSTECTOMY [...] often do you attend chur ch or sikh services? 1 to 4 times per year 11/02/2021 Do you belong to any clubs o r organizations such as confucianism groups, unions, fraternal or athletic groups, or [...] cm (5' 6 ) 06/08/2023 6:30 AM TOOL LIAISON Body Mass Index 26.47 06/08/2023 6:30 AM TOOL LIAISON Plan of Treatment Health Maintenance Due Date [...] 07/09/2015, 04/09/2015 Medical Devices Implanted Type Area Hoop Expander Device Identifier Shelf Expiration Date Model / Serial / Lot [employer] Vertaplex Hv Autoplex Without Needle Delivery System Kit Bone [id number] - [id number] - [id number] Implanted:Qty: 1 on 11/06/2021 by Wally Manuel MD at [facility] Bone Cement [employer] 09/02/2024 [id number] / [id number] / [id number] Insurance [place] [employer]ICARE [place] [employer] [place] [facility] Address: [address] [address] [place] [address] [place] [employer] Advance Directives For more information, please contact: [phone] * Full Code (Latest Code Status on File) Date Activated Date Inactivated Comments 11/01/2021 12:13 PM 11/06/2021 8:41 PM Care Teams Pre School Manager Relationship Specialty Start Date End Date Natalia Alvarado NP [address] [facility] [address] [place] [address] PCP - General Nurse Practitioner 09/21/24 Migue Leo MD [address] [address] Consulting Physician Pulmonary Disease 11/06/21 Wally Manuel MD [address] [facility] [address] [place] [address] Anesthesiologist Anesthesiology 11/06/21 Luis Templeton MD [address] [place] [address] Consulting Physician Urology 06/08/23
--- OUTSIDE RECORDS SUMMARY | 2025-01-03 20:40 | XMS_ITS ---
Author Organization [facility] Address [address] King: Epic Prelude ADT [place], [place] [address] Care Team Providers Care Senior Support Engineer Name Role Phone Unavailable Primary Care Provider [...] are noted during his recent admission to [facility]. Patient endorses unrefreshing sleep and snoring. He scored a 7 on the Creede Sleepiness Scale. Sleep study was ordered at [...] 01/08/2017 Overview (07/07/2021): Per Dr Kirill Keen. [phone]. . [facility], [address] [place] [address]. Status post lung biopsy Per Dr Kirill Keen. [phone]. . [facility], [address] [place] [address]. 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 FVC 2.47-56% predicted, FEV1 0.87-33% predicted. TLC 7.53-118%, vital capacity 3.01-68%, DLCO 18.73 68%. Consistent with severe COPD Pulmonollaquita Birch MD at [facility] feels like it is Sarcoidosis. The [facility] lymph node biopsy by Bernardino MAURICIO December 03, [address] Joshua Leo. No granulomas were noted, negative for malignancy. TERRA level normal at 11. Due to ongoing suspicion about sarcoidosis he was started on prednisone 40 mg daily for 3 months with Bactrim DS for PCP prophylaxis. This is the plan per , [facility] - pulmonary 350, [address] [address]. [phone], fax [phone] to vat house laborer in [place]. FVC 2.47-56% predicted, FEV1 0.87- 33% predicted. TLC 7.53-118%, vital capacity 3.01-68%, DLCO 18.73 68%. Consistent with severe COPD Pulmonollaquita Birch MD at [facility] like it is Sarcoidosis. The [facility] lymph node biopsy by E HANG December 03, [address] Joshua Leo. No granulomas were noted, negative for malignancy. TERRA level normal at 11. Due to ongoing suspicion about sarcoidosis he was started on prednisone 40 mg daily for 3 months with Bactrim DS for PCP prophylaxis. This is the plan per Dr.Soberano [facility] - pulmonary 350, [address] [place] [address]. [phone], fax [phone] History of acute renal failure September 2016 017 Hx of acute respiratory failure with hypoxemia J une 2017 09/28/2016 CAD, s/p stent x 2 (2015) 09/28/2016 Overview (07/31/2020): Cardiac stents X 04 Aug 2015-continues on Plavix. Cariologist Dr Yu in [place] History of exposure to tuberculosis 09/28/2016 Overview [...]
--- OUTSIDE RECORDS SUMMARY | 2025-01-03 20:40 | XMS_ITS | Clinical Summary ---
Author Organization [facility] Address [address] King: [place] [address] Care Team Providers Care Chinese Medicine Practitioner Name Role Phone Unavailable Primary Care Provider [...] vertebra, unspecified thoracic vertebral level, initial encounter Take 1 Tablet by mouth every 4 [...] noted during his recent admission to [facility]. Patient endorses unrefreshing sleep and snoring. He scored a 7 on the [place] Sleepiness Scale. Sleep study was ordered at [...] 01/08/2017 Overview (07/07/2021): Per Dr Kirill Keen. [phone]. . [facility], [address] [place] [address]. Status post lung biopsy Per Dr Kirill Keen. [phone]. . [facility], [address] [place], [place]. Status post lung biopsy Patient suffered [...] 09/28/2016 Overview (07/07/2021): Referral in place to bankruptcy legal assistant in [place]. FVC 2.47-56% predicted, FEV1 0.87-33% predicted. TLC 7.53-118%, vital capacity 3.01-68%, DLCO 18.73 68%. Consistent with severe COPD Pulmonollaquita Birch MD at [facility] feels like it is Sarcoidosis. The [facility] lymph node biopsy by Bernardino MAURICIO December 03, [address] Joshua Leo. No granulomas were noted, negative for malignancy. TERRA level normal at 11. Due to ongoing suspicion about sarcoidosis he was started on prednisone 40 mg daily for 3 months with Bactrim DS for PCP prophylaxis. This is the plan per , [facility] - pulmonary 350, [address] [place] [address]. [phone], fax [phone] to bankruptcy legal assistant in [place]. FVC 2.47-56% predicted, FEV1 0.87- 33% predicted. TLC 7.53-118%, vital capacity 3.01-68%, DLCO 18.73 68%. Consistent with severe COPD Pulmonollaquita Birch MD at [facility] feels like it is Sarcoidosis. The [facility] lymph node biopsy by Bernardino MAURICIO December 03, [address] Joshua Leo. No granulomas were noted, negative for malignancy. TERRA level normal at 11. Due to ongoing suspicion about sarcoidosis he was started on prednisone 40 mg daily for 3 months with Bactrim DS for PCP prophylaxis. This is the plan per Dr.Soberano Romero - pulmonary 350, [address] [place] [address]. [phone], fax [phone] History of acute renal failure September 2016 017 Hx of acute respiratory failure with hypoxemia J une 201609/28/2016 CAD, s/p stent x 2 (2015) 09/28/2016 Overview (07/31/2020): Cardiac stents X 04 Aug 2015-continues on Plavix. Cariologist Dr Yu in [place] History of exposure to tuberculosis 09/28/2016 Overview [...] Encounters Date Type Department Care Team Description 01/01/2025 Orders Only [facility] Cancer and Hematology [place] [address] [address] Jose Hughes MD Personal history of PE (pulmonary embolism) (Primary Dx); History of acute renal failure September 2016; Immunosuppression due to chronic steroid use; Chronic anticoagulation; Thrombocytosis, unspecified; Abnormal finding of blood chemistry, unspecified 12/18/2024 4:15 AM CDT - 12/18/2024 11:59 PM CDT Hospital Encounter [facility] Emergency Medical Services [address] [address] [address]ulance, [facility] Discharge Disposition: [facility] [place] 12/18/2024 External Device Data STL ABSTRACTION Provider, Abstract 12/11/2024 8:13 PM CDT - 12/11/2024 10:35 PM CDT Emergency [facility] Emergency Medicine [address] [place] [address] Nicolás Slaughter MD Chronic obstructive pulmonary disease with acute exacerbation (CMS/HCC) (Primary Dx); Bilateral thoracic back pain, unspecified chronicity; Compression fracture of thoracic vertebra, unspecified thoracic vertebral level, initial encounter (CMS/HCC) Discharge Disposition: Home or Self Care 12/11/2024 Travel 12/11/2024 External Device Data STL ABSTRACTION Provider, Abstract 12/04/2024 7:05 AM CDT - 12/04/2024 11:59 PM CDT Hospital Encounter [facility] Emergency Medical Services [address] [place] [address] Ambulance, [facility] Discharge Disposition: [facility] [place] 11/20/2024 Refill [facility] Ophthal[facility] [address] [place] [address] Dianna Overton MD 10/14/2024 8:20 PM CDT - 10/14/2024 9:38 PM CDT Emergency [facility] Emergency Medicine [address] [place] [address] Chucho Yu DO Acute on chronic low back pain (Primary Dx) Discharge Disposition: Home or Self Care 10/06/2024 9:45 PM CDT - 10/06/2024 10:49 PM CDT Emergency 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 Gender Identity Not on file Sexual Orientation [...] Info) Description 01/11/2025 10:45 AM CDT Appointment [facility] Laboratory Services [address] [address] Jose Hughes MD [address] [address] 01/18/2025 1:20 PM CDT Office Visit [facility] Cancer and Hematology [place] [address] [address] Jose Hughes MD [address] [address] Health Maintenance Due Date Last [...] Screening 05/11/202705/11 Medical Devices Implanted Type Area Building Construction Inspector Device Identifier Shelf Expiration Date Model / Serial / Lot Stent Percuflex+ 4.8fr 24cm [id number] - [id number] Implanted:Qty: 1 on 02/06/2023 by Lencho Acosta MD at [facility] Stent Left: Ureter [employer]PER [employer]IP[employer] [id number] 06/10/2025 [id number] 20 / / [id number] Explanted Type Area Building Construction Inspector Device Identifier Shelf Expiration Date Model / Serial / Lot Stent Contour [id number] - [id number] Explanted:Qty: 1 on 02/06/2023 by Lencho Acosta MD at [facility] Stent Left: Ureter [employer]WR[employer]PER [employer]IP[employer] [id number] 09/14/2025 [id number] 20 / / [id number] Procedures Procedure Name Priority Date/Time Associated Diagnosis Comments TROPONIN BASELINE, 5TH GEN Stat 12/11/2024 9:36 PM CDT BRAIN NATRIURETIC PEPTIDE, BNP OR PROBNP Stat 12/11/2024 9:36 PM CDT COMPREHENSIVE METABOLIC PANEL Stat 12/11/2024 9:36 PM CDT CBC WITH DIFFERENTIAL Stat 12/11/2024 9:36 PM CDT XR CHEST PA OR AP 1 VW Stat 9:25 PM CDT URINALYSIS W/REFLEX MICROSCOPIC Stat 10/06/2024 9:57 PM CDT HEMOGLOBIN A1C Routine 05/11/2024 2:55 AM CLINICAL ESTHETICIAN from Last 3 Months or Most Recently Relevant to Health Maintenance Results * (ABNORMAL) TROPONIN BASELINE, 5TH GEN (12/11/2024 9:36 PM CDT) Pathologist [facility] TROPONIN T, BASELINE 5TH GEN 51(H) <=15 ng/L 12/11/2024 10:09 PM CDT [facility] Blood BLOOD SPECIMEN / Unknown Collection / Unknown 12/11/2024 9:36 PM CDT 12/11/2024 9:48 PM CDT Narrative [facility] - 12/11/2024 10:09 PM CDT Troponin elevated. Nicolás Slaughter MD CHEMISTRY ORDERABLES Fin al Result [facility] CLIA # [id number] [address] [place] [address] * (ABNORMAL) CBC WITH DIFFERENTIAL (12/11/2024 9:36 PM CDT) Pathologist [facility] WBC 25.8(H) 4.2 - 9.1 K/uL 12/11/2024 9:55 PM CDT [facility] RBC 4.08(L) 4.63 - 6.08 M/uL 12/11/2024 9:55 PM T [facility] HEMOGLOBIN 12.8(L) 13.7 - 17.5 g/dL 12/11/2024 9:55 PM T [facility] HEMATOCRIT 40.4 40.1 - 51.0 % 12/11/2024 9:55 PM CDT [facility] MCV 99.0(H) 79.0 - 92.2 fL 12/11/2024 9:55 PM CDT [facility] MCH 31.4 25.7 - 32.2 pg 12/11/2024 9:[address] [facility] MCHC 31.7(L) 32.3 - 36.5 g/dL 12/11/2024 9:[address] [facility] RDW 16.4(H) 11.0 - 14.5 % 12/11/2024 9:[address] [facility] RDW-STDEV 59.6(H) 36.9 - 56.9 fL 12/11/2024 9:[address] [facility] PLATELETS 298 130 - 400 K/uL 12/11/2024 9:[address] [facility] MPV 10.3 10.0 - 14.8 fL 12/11/2024 9:[address] [facility] NEUTROPHILS 89(H) 34 - 68 % 12/11/2024 9:[address] [facility] LYMPHOCYTES 2(L) 22 - 53 % 12/11/2024 9:[address] [facility] MONOCYTES 5 5 - 12 % 12/11/2024 9:[address] [facility] EOSINOPHILS 0(L) 1 - 7 % 12/11/2024 9:[address] [facility] BASOPHILS 0 0 - 1 % 12/11/2024 9:[address] [facility] IMMATURE GRANULOCYTES 4 % 12/11/2024 9:[address] [facility] NEUTROPHIL ABSOLUTE 23.02(H) 1.78 - 5.38 K/uL 12/11/2024 9:[address] [facility] LYMPHOCYTE ABSOLUTE 0.44(L) 1.20 - 3.40 K/uL 12/11/2024 9:[address] [facility] MONOCYTE ABSOLUTE 1.27(H) 0.30 - 0.82 K/uL 12/11/2024 9:[address] [facility] EOSINOPHIL ABSOLUTE 0.02(L) 0.04 - 0.54 K/uL 12/11/2024 9:[address] [facility] BASOPHILS ABSOLUTE 0.08 0.01 - 0.08 K/uL 12/11/2024 9:55 PM CDT [facility] IMMATURE GRANULOCYTES ABSOLUTE 0.98 K/uL 12/11/2024 9:55 PM CDT [facility] Blood BLOOD SPECIMEN / Unknown Collection / Unknown 12/11/2024 9:36 PM CDT 12/11/2024 9:48 PM CDT us Nicolás Slaughter MD HEMATOLOGY ORDERABLES Fi nal Result Performing Organization Address City/[facility]/ZIP Co de Phone Number [facility] CLIA # [id number] [address] [place] [address] * BRAIN NATRIURETIC PEPTIDE, BNP OR PROBNP (12/11/2024 9:36 PM CDT) PROBNP, N TERMINAL <36 0 - 125 pg/mL 12/11/2024 10:09 PM CDT [facility] Comment: INTERPRETIVE COMMENT based on diagnosis: Diagnostic [...] Slaughter MD CHEMISTRY ORDERABLES Fin al Result Performing Organization Address City/[facility]/ZIP Co de Phone Number [facility] CLIA # [id number] [address] [place] [address] * (ABNORMAL) COMPREHENSIVE METABOLIC PANEL (12/11/2024 9:36 PM CDT) SODIUM 141 136 - 145 mmol/L 12/11/2024 10:[address] [facility] POTASSIUM 4.6 3.5 - 5.1 mmol/L 12/11/2024 10:[address] [facility] CHLORIDE 101 98 - 107 mmol/L 12/11/2024 10:[address] [facility] CO2 24 22 - 29 mmol/L 12/11/2024 10:[address] [facility] CALCIUM 9.4 8.8 - 10.2 mg/dL 12/11/2024 10:[address] [facility] BUN 25(H) 8 - 23 mg/dL 12/11/2024 10:[address] [facility] CREATININE 0.79 0.67 - 1.17 mg/dL 12/11/2024 10:[address] [facility] GLUCOSE 170(H) 74 - 99 mg/dL 12/11/2024 10:[address] [facility] TOTAL PROTEIN 6.4(L) 6.6 - 8.7 g/dL 12/11/2024 10:[address] [facility] ALBUMIN 4.3 3.5 - 5.2 g/dL 12/11/2024 10:[address] [facility] BILIRUBIN TOTAL 0.4 0.0 - 1.2 mg/dL 12/11/2024 10:[address] [facility] ALKALINE PHOSPHATASE 141(H) 40 - 129 U/L 12/11/2024 10:[address] [facility] AST 28 0 - 50 U/L 12/11/2024 10:[address] [facility] ALT 39 0 - 50 U/L 12/11/2024 10:[address] [facility] GFR >60 >=60 mL/min/1.7 3 sq meter 12/11/2024 10:[address] [facility] Comment:eGFR calculated with 2020 CKD-EPI equation. Vegetarian diet, extremely high or low muscle mass, and may affect results. Cystatin C with Glomerular Filtration Rate is a suitable alternative for these patients. ANION GAP 16 5 - 20 mmol/L 12/11/2024 10:09 PM CDT [facility] Blood BLOOD SPECIMEN / Unknown Collection / Unknown 12/11/2024 9:36 PM CDT 12/11/2024 9:48 PM CDT us Nicolás Slaughter MD CHEMISTRY ORDERABLES Fin al Result [facility] CLIA # [id number] [address] [place] [address] * XR CHEST PA OR AP 1 [...] Postprocedure changes from thoracic vertebral body vertebroplasty. Nicolás Slaughter MD DIAGNOSTIC IMAGING ORDER VON Final Result * (ABNORMAL) URINALYSIS WITH REFLEX MICROSCOPIC (10/06/2024 9:57 PM CDT) COLOR UA Yellow Pale to Dark Yellow 10/06/2024 10:05 PM T [facility] CLARITY UA Clear Clear 10/06/2024 10:05 PM T [facility] SPECIFIC GRAVITY UA 1.015 1.003 - 1.035 10/06/2024 10:05 PM T [facility] PH UA 5.5 5.0 - 8.0 10/06/2024 10:05 PM T [facility] LEUKOCYTE ESTERASE UA Negative Negative 10/06/2024 10:05 PM T [facility] NITRITE UA Negative Negative 10/06/2024 10:05 PM T [facility] PROTEIN UA Negative Negative 10/06/2024 10:05 PM T [facility] GLUCOSE UA 2+(A) Negative 10/06/2024 10:[address] [facility] KETONES UA Trace(A) Negative 10/06/2024 10:05 PM T [facility] UROBILINOGEN UA 0.2 <2.0 mg/dL 10:[address] [facility] BILIRUBIN UA Negative Negative 10/06/2024 10:05 PM T [facility] BLOOD UA Negative Negative 10/06/2024 10:[address] [facility] Urine URINE SPECIMEN OBTAINED BY CLEAN CATCH PROCEDURE / Unknown Collection / Unknown 10/06/2024 9:57 PM CDT 10/06/2024 10:01 PM CDT us Carli Meng MD URINE ORDERABLES Final Res ult [facility] CLIA # [id number] [address] [place] [address] * (ABNORMAL) HEMOGLOBIN A1C (05/11/2024 2:55 AM CLINICAL ESTHETICIAN) HEMOGLOBIN A1C 6.3(H) <=5.6 % 05/11/2024 9:50 PM CLINICAL ESTHETICIAN [facility] [place] EST. AVG GLUCOSE, A1C 134 mg/dL 05/11/2024 9:50 PM CLINICAL ESTHETICIAN [facility] 2CODE Online [facility] Blood BLOOD SPECIMEN / Unknown Venipuncture / Unknown 05/11/2024 2:55 AM CLINICAL ESTHETICIAN 05/11/2024 3:23 AM CLINICAL ESTHETICIAN Narrative [facility] [place] - 05/11/2024 9:50 PM CLINICAL ESTHETICIAN HGB A1C INTERPRETATION NORMAL: <5.7% PRE-DIABETES: 5.7 - 6.4% DIABETES: 6.5% OR GREATER Dawood Wilkins MD CHEMISTRY ORDERABLES Fin al Result [facility] 2[facility] Online [facility] CLIA # [id number] [address] [place] [address] [address] from Last 3 Months or Most Recently Relevant to Health Maintenance Insurance [place] PART A AND B RX [employer] RX Member Subscriber Plan / Payer (Ef fective 2021-Present) Name:Partha Roe Relation to Subscriber:Self Name:Partha Roe Subscriber ID:Not on file Payer ID:Not on file Group ID:[id number] Type:RX Commercial Address: JACY GEIGER Advance Directives For more information, please contact: [phone] * Full Code (Latest Code Status on [...]
--- OUTSIDE RECORDS SUMMARY | 2025-01-03 20:40 | XMS_ITS | Encounter Summary ---
Author Organization [facility] Address [address] [place] [address] Care Team Providers Care Floral Artist Name Role Phone Unavailable Primary Care Provider Unavailabl e Encounter Details Date Type Department Care Team (Late st Contact Info) Description 01/01/2025 Orders Only [facility] Cancer and Hematology [place] [address] [facility] [address] [place] [address] Jose Hughes MD [address]54 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 Gender Identity Not on file Sexual Orientation Not on file documented as of this encounter Plan of Treatment Upcoming Encounters Date Type Department Care Team (Late st Contact Info) Description 01/11/2025 10:45 AM CDT Appointment [facility] [address] [address] Jose Hughes MD [address] [address] 01/18/2025 1:20 PM CDT Office Visit [facility] Cancer and Hematology [place] [address] [address] Jose Hughes MD [address] [address] Scheduled Orders Name Type Priority Associated Diagnoses Orde r Schedule D-DIMER Lab Routine Personal history of PE (pulmonary embolism) History of acute renal failure September 2016 Immunosuppression due to chronic steroid use Chronic anticoagulation Expected: 01/11/2025 (Approximate), Expires: 04/11/2025 CBC WITH DIFFERENTIAL Lab Routine Personal history of PE (pulmonary embolism) History of acute renal failure September 2016 Immunosuppression due to chronic steroid use Chronic anticoagulation Expected: 01/11/2025 (Approximate), Expires: 04/11/2025 COMPREHENSIVE METABOLIC PANEL Lab Routine Personal history of PE (pulmonary embolism) History of acute renal failure September 2016 Immunosuppression due to chronic steroid use Chronic anticoagulation Expected: 01/11/2025 (Approximate), Expires: 04/11/2025 LACTATE DEHYDROGENASE Lab Routine Personal history of PE (pulmonary embolism) History of acute renal failure September 2016 Immunosuppression due to chronic steroid use Chronic anticoagulation Expected: 01/11/2025 (Approximate), Expires: 04/11/2025 RETICULOCYTES Lab Routine Personal history of PE (pulmonary embolism) History of acute renal failure September 2016 Immunosuppression due to chronic steroid use Chronic anticoagulation Expected: 01/11/2025 (Approximate), Expires: 04/11/2025 FERRITIN Lab Routine Personal history of PE (pulmonary embolism) History of acute renal failure September 2016 Immunosuppression due to chronic steroid use Chronic anticoagulation Thrombocytosis, unspecified Expected: 01/11/2025 (Approximate), Expires: 04/11/2025 IRON, TIBC, AND PERCENT SATURATION Lab Routine Personal history of PE (pulmonary embolism) History of acute renal failure September 2016 Immunosuppression due to chronic steroid use Chronic anticoagulation Abnormal finding of blood chemistry, unspecified Expected: 01/11/2025 (Approximate), Expires: 04/11/2025 VITAMIN B12 AND FOLATE Lab Routine Personal history of PE (pulmonary embolism) History of acute renal failure September 2016 Immunosuppression due to chronic steroid use Chronic anticoagulation Expected: 01/11/2025 (Approximate), Expires: 04/11/2025 documented as of this encounter Visit Diagnoses Diagnosis Personal history of PE (pulmonary embolism)- Primary Personal history of pulmonary embolism History of acute renal failure September 2016 Personal history of other disorder of urinary system Immunosuppression due to chronic steroid use Chronic anticoagulation Encounter for long-term (current) use of anticoagulants Thrombocytosis, unspecified Abnormal finding of blood chemistry, unspecified documented in this encounter
--- OUTSIDE RECORDS SUMMARY | 2025-01-03 20:40 | XMS_ITS | Clinical Summary ---
Author Organization [facility] Address [address] [place] [address] Phone Care Team Providers Care Brim Buster Name Role Phone Refugio Bedoya Primary Care Provider [phone] Allergies Active Allergy Reactions Criticality Noted Date [...] ge 3 severe COPD by GOLD classification ([facility]) Inhale 2 puffs 4 (four) times a day if needed for wheezing or shortness of breath. 18 g 025 Active albuterol 2.5 mg /3 mL (0.083 %) nebulizer solutionIndicatio ns:Chronic obstructive pulmonary disease, unspecified COPD type ([facility]) Take 3 mL (2.5 mg total) by [...] loss. Assessment & Plan (06/01/2022 2:02 PM CHART CHANGER): Body mass index is 29.62 kg/m . Discuss importance of a healthy diet, routine exercise, and weight loss. Assessment & Plan (03/18/2022 1:29 PM CHART CHANGER): Body mass index is 27.29 kg/m . Discuss importance of a healthy diet, routine exercise, and weight loss. Assessment & Plan (11/12/2021 5:11 PM CDT): Body mass index is 29.29 kg/m . Discuss importance of a healthy diet, routine exercise, and weight loss. Obstructive sleep apnea 11/12/2021 Overview (03/18/2022): Apneic episodes are noted during his recent admission to [facility]. Patient endorses unrefreshing sleep and snoring. He scored a 7 on the Porter Sleepiness Scale. Sleep study was ordered at his November 2021 visit, but multiple appointments were canceled by the patient. Assessment & Plan (03/18/2022 1:31 PM CHART CHANGER): Patient should avoid driving while sleepy and [...] days. Assessment & Plan (05/30/2024 2:27 PM CHART CHANGER): Cough, sputum production, shortness of breath, dysphagia, [...] cessation. Assessment & Plan (05/03/2023 3:04 PM CHART CHANGER): Cough, sputum production, shortness of breath, dysphagia, [...] cessation. Assessment & Plan (06/01/2022 2:03 PM CHART CHANGER): Advise cessation. Allergic rhinitis due to animal hair and dander 06/17/2021 Overview (01/18/2024): Region 8 allergen panel was positive for cat dander on 11/01/2016, and his total serum IgE was 86. Assessment & Plan (05/30/2024 2:12 PM CHART CHANGER): Recommend Rosanne, Claritin, Zyrtec, or Xyzal for symptomatic relief. Assessment & Plan (01/18/2024 1:40 PM CDT): Recommend Rosanne, Claritin, Zyrtec, or Xyzal for symptomatic relief. Assessment & Plan (09/20/2023 10:35 AM CDT): Recommend Rosanne, Claritin, Zyrtec, or Xyzal for symptomatic relief. Assessment & Plan (05/03/2023 3:04 PM CHART CHANGER): Recommend Rosanne, Claritin, Zyrtec, or Xyzal for symptomatic relief. Assessment & Plan (12/28/2022 1:10 PM CDT): Recommend Rosanne, Claritin, Zyrtec, or Xyzal for symptomatic relief. Assessment & Plan (08/31/2022 1:30 PM CDT): Recommend Rosanne, Claritin, Zyrtec, or Xyzal for symptomatic relief. Assessment & Plan (06/01/2022 2:03 PM CHART CHANGER): Recommend Rosanne, Claritin, Zyrtec, or Xyzal for symptomatic relief. Assessment & Plan (03/18/2022 1:29 PM CHART CHANGER): Recommend Rosanne, Claritin, Zyrtec, or Xyzal for [...] was previously diagnosed with mild COPD at [facility]. Insurance does not cover Symbicort or Spiriva Respimat. Assessment & Plan (05/30/2024 2:12 PM CHART CHANGER): Continue Advair HFA 230/21 mcg 2 puffs [...] cough. Assessment & Plan (05/03/2023 3:10 PM CHART CHANGER): Continue Advair HFA 230/21 mcg 2 puffs [...] cough. Assessment & Plan (06/01/2022 2:02 PM CHART CHANGER): Continue Advair HFA 230/21 mcg 2 puffs twice daily. Advised mouth rinsing after use to avoid thrush. Continue Incruse 62.5 mcg 1 inhalation daily. Continue albuterol HFA/nebs 4 times daily as needed for shortness of breath, wheezing, cough. Assessment & Plan (03/18/2022 1:29 PM CHART CHANGER): Continue Advair HFA 230/21 mcg 2 puffs [...] deferred. Assessment & Plan (05/30/2024 2:12 PM CHART CHANGER): Prednisone 20 mg daily with Bactrim MWF [...] involvement. Assessment & Plan (05/03/2023 3:04 PM CHART CHANGER): Continue prednisone 20 mg daily with Bactrim [...] prophylaxis. Assessment & Plan (06/01/2022 2:05 PM CHART CHANGER): Continue prednisone 20 mg daily with Bactrim DS MWF for pneumocystis prophylaxis. Assessment & Plan (03/18/2022 1:41 PM CHART CHANGER): Discussed alternative steroid sparing agents due to [...] [facility] [address] [place] [id number] Kirill Keen MD Sarcoidosis (Primary Dx); Stage 3 severe COPD by GOLD classification (CMS/HCC); Centrilobular emphysema (CMS/HCC); Allergic rhinitis due to animal hair and dander; Smokeless tobacco use; Second hand smoke exposure; Non-smoker; Immunization counseling 11/27/2024 Telephone [facility] [address] [place] [phone] Kirill Keen MD Reschedule 10/10/2024 Telephone PULMONOLOGY [facility] [address] [place] [phone] Patrica Preston RN 10/10/2024 Telephone PULMONOLOGY [facility] BUILDING [address] [place] [id number] Patrica Preston RN from Last 3 Months [...] Recorded Patient Health Questionnaire-2 Score 0 05/30/2024 [facility] - Mental Health Answer Date Recorde [...] Comments Blood Pressure 115/75 05/30/2024 2:13 PM CHART CHANGER Pulse 84 05/30/2024 2:13 PM CHART CHANGER Temperature 36.7 C (98 F) 05/30/2024 2:13 PM CHART CHANGER Respiratory Rate 20 05/30/2024 2:13 PM CHART CHANGER Oxygen Saturation 97% 05/30/2024 2:13 PM CHART CHANGER Inhaled Oxygen Concentration - - Weight 71.7 kg (158 lb) 05/30/2024 2:13 PM CHART CHANGER Height 165.1 cm (5' 5 ) 05/30/2024 2:13 PM CHART CHANGER Body Mass Index 26.29 05/30/2024 2:13 PM CHART CHANGER Plan of Treatment Upcoming Encounters Date Type Department Care Team (Late st Contact Info) Description 03/12/2025 1:30 PM CHART CHANGER Office Visit [facility] [address] [place] [address] [phone] [place] [address] [place] [address] [place] [address] [phone] Health Maintenance Due Date Last Done Comments [...] patient's age to complete this topic Insurance [facility] MEDICARE Care Teams Brim Buster Relationship Specialty Start Date End Date Refugio Bedoya [facility] [address] [place] [address] [place] [id number] PCP - General 11/17/20
[2025-01-03 21:38] LABS: Hematocrit 39.6 % (37-53); Hemoglobin 12.40 g/dL (11.27-16.99); Mean Corpuscular HGB Conc 31.3 g/dL (30-55); Mean Corpuscular Hemoglobin 31.2 pg (27-33); Mean Corpuscular Volume 99.7 fl (82-101); Nucleated Red Blood Cells % 0.2 %; Platelet Count 249 10^3/cmm (157-399); Red Blood Count 3.97 10^6/uL (3.85-5.65); White Blood Count 13.01 10^3/uL (3.29-11.43)
[2025-01-03 21:58] LABS: Alanine Aminotransferase 24 U/L (0-41); Albumin Level 4.0 g/dL (3.5-5.2); Alkaline Phosphatase 195 U/L (40-130); Anion Gap 22.8 (5-19); Aspartate Amino Transferase 15 U/L (0-40); Blood Urea Nitrogen 21 mg/dL (8-23); Calcium 9.1 mg/dL (8.5-10.5); Carbon Dioxide 24 mmol/L (22-29); Chloride 97 mmol/L (98-107); Creatinine Clr Calc Pharmacy 72.9192; Globulin 2.2 g/dL (1.3-4.6); Glucose 132 mg/dL (65-115); Osmolality Calculated 295 mOsm/kg (285-295); Potassium 3.8 mmol/L (3.5-5.1); Sodium 140 mmol/L (136-145); Total Protein 6.2 g/dL (6.6-8.7)
[2025-01-03 22:06] VITALS: BP 120/66; PULSE 110; RESP 18; O2SAT 99
--- NOTE | 2025-01-03 22:21 | XRR_ITS ---
PROCEDURE INFORMATION: Exam: XR Chest Exam date and time: 01/03/2025 10:22 PM Age: 64 years old Clinical indication: Shortness of breath TECHNIQUE: Imaging protocol: Radiologic exam of the chest. Views: 1 view. COMPARISON: CR XR chest 1V portable [id number] 12/18/2024 6:37 AM FINDINGS: Lungs: Unremarkable. No consolidation. Pleural spaces: Unremarkable. No pleural effusion. No pneumothorax. Heart/Mediastinum: Unremarkable. No cardiomegaly. Bones/joints: Midthoracic vertebroplasty changes are noted. Soft tissues: Right axillary surgical clips are noted. XR/XR chest 1V portable [id number] IMPRESSION: No acute findings.
--- NOTE | 2025-01-03 22:28 | ECG_ITS ---
[facility] Pat Name: Partha Roe Department: Room: Gender: Male Press Set Up Person: : 1960 Requested By: Refugio Simpson Order Number: [id number] Wynne MD: Tunde Browne M.D. Measurements Intervals [place] Rate: 99 P: 60 MD: 117 QRS: 23 QRSD: 94 T: 83 QT: 338 QTc: 435 Interpretive Statements SINUS RHYTHM WITH SHORT MD INTERVAL Compared to ECG 12/18/2024 06:11:26 Short MD interval now present Electronically Signed On 01-03-2025 23:27:15 CDT by Tunde Browne M.D. [email or web address] [id number]
--- NOTE | 2025-01-03 22:34 | XRR_ITS ---
PROCEDURE INFORMATION: Exam: XR Right Knee Exam date and time: 01/03/2025 10:32 PM Age: 64 years old Clinical indication: Pain; Knee; Right TECHNIQUE: Imaging protocol: Radiologic exam of the right knee. Views: 1 or 2 views. COMPARISON: US soft tissue/extremity [id number] 06/27/2024 11:44 AM FINDINGS: Bones/joints: No acute fracture. No joint effusion is present. Osseous alignment is normal. Normal joint spaces. Soft tissues: Normal. Vasculature: Vascular atherosclerosis is noted. XR/XR knee RT 1-2V [id number] IMPRESSION: 1. No acute osseous abnormality. 2. Peripheral vascular disease.
[2025-01-03 22:49] LABS: Troponin(5th) Baseline 49 ng/L (0-15)
[2025-01-03 23:06] LABS: NT Pro B Type Natriuretic Pept 44 pg/mL (0-125)
[2025-01-03 23:15] VITALS: RESP 22
[2025-01-03] MEDS: oxyCODONE-APAP 5-325 mg Tablet 1 TAB PO (23:15)
[2025-01-03 23:30] VITALS: PULSE 98; RESP 16; O2SAT 98
[2025-01-04] MEDS: FUROsemide 10 mg/mL SDV 4mL 40 MG IVP (00:11)
--- NOTE | 2025-01-04 00:34 | W.ED.DIZZY ---
HPI - Dizziness General: Chief Complaint: Dizziness Stated Complaint: dizzy shaky light headed Time Seen by Provider: 01/03/25 22:10 History of Present Illness: HPI Narrative: 64 yo M presents with lightheadedness when standing, feeling like he could fall but without true syncope. He believes reduced water intake today may have contributed. Reports chronic bilateral leg swelling that ?stays big all the time,? with weeping, and significant pain in the back of his knees and back. Denies fever, cough, chest pain, nausea, vomiting, or diarrhea. No home O2 use. Orthopnea noted; prefers head up primarily for back comfort. Lightheadedness worsens with standing rather than head movement. ROS otherwise negative as above. Related Data Home Medications ?Medication ?Instructions ?Recorded ?Confirmed aspirin 81 mg tablet 81 mg PO DAILY 10/01/24 12/25/24 brimonidine 0.2 % eye drops 1 drp ophthalmic (eye) BID 12/04/24 12/25/24 dorzolamide 2 % eye drops 1 drp ophthalmic (eye) BID 12/04/24 12/25/24 imiquimod 5 % topical cream packet See Rx Instructions .Route .COMPLEX 12/04/24 12/25/24 buspirone 7.5 mg tablet 7.5 mg PO TID PRN Anxiety 12/18/24 12/25/24 hydrocodone 7.5 mg-acetaminophen 1 tab PO Q4H PRN Moderate Pain 12/18/24 12/25/24 325 mg tablet (Scale Score 5-6) Previous Rx's ?Medication ?Instructions ?Recorded simvastatin 40 mg tablet 40 mg PO QPM #30 tabs 05/08/24 nitroglycerin 0.4 mg sublingual 0.4 mg sublingual Q5M PRN chest 05/16/24 tablet pain #30 tabs empagliflozin 10 mg tablet 10 mg PO DAILY #30 tabs 08/20/24 (Jardiance) metoprolol succinate 25 mg 12.5 mg (1/2 x 25 mg) PO BID #60 08/20/24 tablet,extended release 24 hr tabs furosemide 40 mg tablet 40 mg PO QAM edema/heart #30 tabs 10/25/24 albuterol sulfate 90 mcg/actuation 2 puff inhalation Q6H PRN 12/06/24 aerosol inhaler (Ventolin HFA) breathing #8.5 grams cyclobenzaprine 10 mg tablet 10 mg PO TID PRN muscle spasms #90 12/10/24 tabs gabapentin 100 mg capsule 100 mg PO BID #60 caps 12/10/24 apixaban 5 mg tablet (Eliquis) 5 mg PO BID #60 tabs 12/14/24 Nebulizer with tubing and filter #1 ea 12/17/24 fluticasone fur. 100 mcg-umeclid 1 inh inhalation DAILY #28 ea 12/17/24 62.5 mcg-vilant 25 mcg inhalat.powder (Trelegy Ellipta) albuterol sulfate 2.5 mg/3 mL 2.5 mg (3 mL) inhalation Q4H PRN 12/20/24 (0.083 %) solution for nebulization Wheezing #30 mL glucometer testing kit #1 12/21/24 insulin aspart U-100 100 unit/mL See Rx Instructions .Route 12/21/24 (3 mL) subcutaneous pen (Novolog .COMPLEX #15 mL FlexPen U-100 Insulin aspart) insulin glargine 100 unit/mL (3 15 unit (0.15 mL) SUBCUT QPM 30 12/21/24 mL) subcutaneous pen (Basaglar days #15 mL KwikPen U-100 Insulin) prednisone 10 mg tablet See Rx Instructions .Route 12/21/24 .COMPLEX #53 tabs diazepam 5 mg tablet (Valium) 5 mg PO BID PRN anxiety #2 tabs 12/25/24 hydrocodone 5 mg-acetaminophen 325 1 tab PO BID pain 7 days #14 tabs 12/25/24 mg tablet amoxicillin 875 mg-potassium 1 tab PO BID 10 days #20 tabs 01/04/25 clavulanate 125 mg tablet Allergies Allergy/AdvReac Type Severity Reaction Status Date / Time cat dander Allergy Mild ADR-Swelling Verified 12/25/24 13:51 of the Eye ibuprofen Allergy Unknown Unknown Verified 12/25/24 13:51 menthol Allergy Unknown Verified 12/25/24 13:51 ketorolac (From Toradol) AdvReac renal Verified 12/25/24 13:51 failure PFSH ED PFSH: Medical History (Updated 01/04/25 @ 00:45 by Refugio Osborne MD) Enrolled in chronic care management Depression Pulmonary embolism Type 2 diabetes mellitus without complication, without long-term current use of insulin 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 Left ureteral calculus 02/09/2023 [facility] Bilateral lower extremity edema Non-smoker COPD (chronic obstructive pulmonary disease) Pulmonary sarcoidosis Hyperlipidemia ASHD (arteriosclerotic heart disease) 2016 stents x2 HTN (hypertension) Surgical History History of eye surgery History of back surgery H/O bilateral cataract extraction S/P PTCA (percutaneous transluminal coronary angioplasty) S/P cholecystectomy S/P skin cancer resection Family History Brother CAD (coronary artery disease) valve replaced Mother Lung disease Denies family history of Diabetes Clotting disorder Dementia Chronic kidney disease (CKD) Suicide Anesthesia complication Bleeding disorder Cancer Stroke Social History Smoking and tobacco/nicotine status: never used tobacco/nicotine Second hand smoke exposure: No Alcohol intake: never Substance/Drug Use: never Physical Exam Const: COMMON NORMALS: no acute distress, patient oriented x3 and alert HENMT: COMMON NORMALS: normocephalic and atraumatic HEAD & SCALP: normocephalic and atraumatic Eye: COMMON NORMALS: Equal, round and reactive pupils present, EOMs intact bilaterally and no scleral icterus PUPIL: Yes Equal, round and reactive pupils present Resp: COMMON NORMALS: normal respiratory effort and No retractions Cardio: COMMON NORMALS: regular rhythm and No murmurs present (Cardio) RHYTHM: regular rhythm OTHER: Mildly tachycardic GI: COMMON NORMALS: Normal to inspection, nondistended, normoactive bowel sounds present, Soft to palpation and non-tender PALPATION: Yes Soft to palpation Extremity: OTHER: 3+ pitting edema from the knees to the ankles. Right knee is somewhat stiff and painful with motion but no obvious deformity or swelling or redness. Neuro: COMMON NORMALS: patient oriented x3 SENSORIUM/ORIENTATION: Yes alert Skin: OTHER: Some erythema and weeping from the posterior left lower leg concerning for early cellulitis Course Vital Signs: Vital signs: Vital Signs Temperature 98.2 F 01/03/25 20:30 Pulse Rate 99 01/04/25 01:00 Respiratory Rate 18 01/04/25 01:00 Blood Pressure 136/96 01/04/25 01:00 Pulse Oximetry 98 01/04/25 01:00 Oxygen Delivery Me thod Room Air 01/03/25 22:06 MDM - Dizziness Medical Decision Making EKG: Time?2227?normal sinus rhythm, rate of 99, no ST segment elevation or depression, no T wave inversions, QTc = 395 64 yo M with lightheadedness on standing, chronic bilateral leg edema with weeping, orthopnea, and significant knee/back pain. Denies fever, cough, chest pain, GI symptoms. Vitals show tachycardia; PE notable for bilateral basal crackles, wheezes, 3+ pitting edema to knees, orthopnea, and right knee pain without effusion or deformity. DDx includes CHF exacerbation vs dehydration causing orthostatic symptoms; provider expresses greater concern for CHF exacerbation. Peripheral vertigo less likely given lack of head-movement?induced symptoms. Chest x-ray shows nothing acute. EKG is similarly unremarkable. BNP is not elevated. The patient was given Lasix and instructions to use compression stockings and already has plans to follow-up with orthopedics about his knee. Lightheadedness has improved while here. He will be discharged in stable and improved condition Lab Data 01/03/25 21:29 01/03/25 21:29 Radiology Impressions Chest X-Ray 01/03/25 22:21 IMPRESSION: No acute findings. Knee X-Ray 01/03/25 22:34 IMPRESSION: 1. No acute osseous abnormality. 2. Peripheral vascular disease. Laboratory Results WBC 13.01 10^3/uL (3.29-11.43) H 01/03/25: RBC 3.97 10^6/uL (3.85-5.65) 01/03/25: Hgb 12.40 g/dL (11.27-16.99) 01/03/25 21: Hct 39.6 % (37-53) 01/03/25: MCV 99.7 fl (82-101) 01/03/25: MCH 31.2 pg (27-33) 01/03/25: MCHC 31.3 g/dL (30-55) 01/03/25: RDW 16.2 % (12.1-15.1) H 01/03/25: Plt Count 249 10^3/cmm (157-399) 01/03/25: MPV 9.7 fL (7.4-10.4) 01/03/25: Neut % (Auto) 75.6 % 01/03/25: Lymph % (Auto) 11.0 % 01/03/25: [place] % (Auto) 8.5 % 01/03/25: Eos % (Auto) 0.4 % 01/03/25: Baso % (Auto) 0.3 % 01/03/25: Neut # (Auto) 9.84 10^3/uL (1.8-7.7) H 01/03/25: Lymph # (Auto) 1.4 10^3/uL (0.8-4.8) 01/03/25: [place] # (Auto) 1.1 10^3/uL (0.2-0.9) H 01/03/25: Eos # (Auto) 0.1 10^3/uL (0.0-0.8) 01/03/25: Baso # (Auto) 0.0 10^3/uL (0.0-0.1) 01/03/25: Nucleated RBC % (auto) 0.2 % 01/03/25: Nucleated RBCs # 0.0 /100WBC 01/03/25: Sodium 140 mmol/L (136-145) 01/03/25: Potassium 3.8 mmol/L (3.5-5.1) 01/03/25: Chloride 97 mmol/L (98-107) L 01/03/25: Carbon Dioxide 24 mmol/L (22-29) 01/03/25: Anion Gap 22.8 (5-19) H 01/03/25: BUN 21 mg/dL (8-23) 01/03/25: Creatinine 1.0 mg/dL (0.7-1.2) 01/03/25: GFR Calculation 75.7 mL/min (90-130) L 01/03/25: Glucose 132 mg/dL (65-115) H 01/03/25: Calculated Osmolality 295 mOsm/kg (285-295) 01/03/25 21: Calcium 9.1 mg/dL (8.5-10.5) 01/03/25 21: Total Bilirubin 0.3 mg/dL (0.15-1.2) 01/03/25 21:29 AST 15 U/L (0-40) 01/03/25 21: ALT 24 U/L (0-41) 01/03/25 21: Alkaline Phosphatase 195 U/L (40-130) H 01/03/25 21:29 Troponin T Baseline 49 ng/L (0-15) H 01/03/25 21: Troponin T 120 Minute 49.34 ng/L (0-15) H 01/04/25 00:00 Delta Troponin T 0.34 ABS# (0-10) 01/04/25 00:00 NT-Pro-B Natriuret Pep 44 pg/mL (0-125) 01/03/25 21: Total Protein 6.2 g/dL (6.6-8.7) L 01/03/25 21: Albumin 4.0 g/dL (3.5-5.2) 01/03/25 21: Globulin 2.2 g/dL (1.3-4.6) 01/03/25 21: All radiology interpretation(s) finalized by discharge Discharge Plan Discharge Patient Disposition: Home Clinical Impression: Episodic lightheadedness, Peripheral edema, Cellulitis of left lower leg Condition: Stable Prescriptions: New amoxicillin-pot clavulanate 875-125 mg tablet 1 tab PO BID 10 Days Qty: 20 0RF No Action simvastatin 40 mg tablet 40 mg PO QPM Qty: 30 2RF Jardiance 10 mg tablet 10 mg PO DAILY Qty: 30 6RF metoprolol succinate 25 mg tablet extended release 24 hr 12.5 mg PO BID Qty: 60 2RF aspirin 81 mg tablet 81 mg PO DAILY diazepam [Valium] 5 mg tablet 5 mg PO BID PRN (Reason: anxiety) Qty: 2 0RF Rx Instructions: take one 30 min before scan, and one when you get to the hospital. hydrocodone-acetaminophen 5-325 mg tablet 1 tab PO BID 7 Days Qty: 14 0RF Trelegy Ellipta 100-62.5-25 mcg blister with device 1 inh inhalation DAILY Qty: 28 0RF (DME) Nebulizer with tubing and filter See Rx Instructions .Route .MEDSUPPLY Qty: 1 0RF Rx Instructions: as directed nitroglycerin 0.4 mg tablet, sublingual 0.4 mg sublingual Q5M PRN (Reason: chest pain) Qty: 30 2RF Rx Instructions: do not exceed 3 doses per episode furosemide 40 mg tablet 40 mg PO QAM Qty: 30 5RF cyclobenzaprine 10 mg tablet 10 mg PO TID PRN (Reason: muscle spasms) Qty: 90 0RF gabapentin 100 mg capsule 100 mg PO BID Qty: 60 0RF Eliquis 5 mg tablet 5 mg PO BID Qty: 60 2RF albuterol sulfate 2.5 mg /3 mL (0.083 %) solution for nebulization 2.5 mg inhalation Q4H PRN (Reason: Wheezing) Qty: 30 3RF imiquimod 5 % cream in packet See Rx Instructions .ROUTE .COMPLEX Rx Instructions: APPLY TO AFFECTED AREA ON LEFT NECK ONCE DAILY TUESDAY-TUESDAY (OFF WEEKENDS) FOR SIX WEEKS. WILL CAUSE REDNESS AND IRRITATION. brimonidine 0.2 % drops 1 drp ophthalmic (eye) BID dorzolamide 2 % drops 1 drp ophthalmic (eye) BID albuterol sulfate [Ventolin HFA] 90 mcg/actuation HFA aerosol inhaler 2 puff INHALATION Q6H PRN (Reason: breathing) Qty: 8.5 1RF hydrocodone-acetaminophen 7.5-325 mg tablet 1 tab PO Q4H PRN (Reason: Moderate Pain (Scale Score 5-6)) buspirone 7.5 mg tablet 7.5 mg PO TID PRN (Reason: Anxiety) prednisone 10 mg tablet See Rx Instructions .ROUTE .COMPLEX Qty: 53 0RF Rx Instructions: 4tab daily for 5 days, 3tab for 5 days, 2tab for 5 days, 1 tab for 5 days, 0.5 tab for 5 days insulin aspart U-100 [Novolog FlexPen U-100 Insulin] 100 unit/mL (3 mL) insulin pen See Rx Instructions .ROUTE .COMPLEX Qty: 15 0RF Rx Instructions: Inject, subcut, 3 times daily, after meals, based on low-dose insulin sliding scale insulin glargine [Basaglar KwikPen U-100 Insulin] 100 unit/mL (3 mL) insulin pen 15 unit SUBCUT QPM 30 Days Qty: 15 0RF (DME) glucometer testing kit See Rx Instructions .Route .MEDSUPPLY Qty: 1 0RF Rx Instructions: check BS three times daily after meals strips#100 lancets#100 Discharge Orders: Discharge ED (Routine); Ordered 01/04/25 Ordered By: Refugio Osborne Referrals: Natalia Alvarado NP [Primary Care Provider, Family Practice] Discharge Diet: Usual diet Discharge Activity: Increase activity as tolerated Patient Instructions: Cellulitis (ED), Lightheadedness (ED), Edema (ED), Patient Portal & [place] Instructions Print Language: Scottish Coding Level of Care Code ED Box Coverer Hand for Mirna Harman
[2025-01-04 00:38] LABS: Troponin 5 2HR 49.34 ng/L (0-15); Troponin 5 2HR Delta 0.34 ABS# (0-10)
[2025-01-04 01:00] VITALS: BP 136/96; PULSE 99; RESP 18; O2SAT 98
== END 2025-01-04 01:02 | disposition home or self-care (01) ==
PROVIDERS: Emergency Provider Student in an Organized Health Care Education/Training Program
DX: R42 Dizziness and giddiness (principal); R60.9 Edema, unspecified; L03.116 Cellulitis of left lower limb; Z79.82 Long term (current) use of aspirin; Z79.01 Long term (current) use of anticoagulants; Z79.4 Long term (current) use of insulin; E11.9 Type 2 diabetes mellitus without complications; E78.5 Hyperlipidemia, unspecified; J44.9 Chronic obstructive pulmonary disease, unspecified; I10 Essential (primary) hypertension; Z85.828 Personal history of other malignant neoplasm of skin
CPT/HCPCS: 36415; 71045; 73560; 80053; 83880; 84484; 85025; 93005; 96374; 99285; J1938; J9999

== ENCOUNTER → 2025-01-15 13:03 | Outpatient (BNVA) | payer MEDICARE, MEDICAID, SELFPAY | PROVIDERS: Visit Provider Orthopaedic Surgery | DX: Z01.818 Encounter for other preprocedural examination (principal); S22.080A Wedge compression fracture of T11-T12 vertebra, initial encounter for closed fracture; X58.XXXA Exposure to other specified factors, initial encounter | CPT/HCPCS: 36415; 80053; 81001; 85025; 99214 ==

== ENCOUNTER 2025-01-16 10:49 | Oncology outpatient (recurring) (ONCR) | payer MEDICARE, MEDICAID, SELFPAY ==
[2025-01-16 11:07] VITALS: PULSE 101; RESP 20; O2SAT 95
== END 2025-02-01 23:59 | disposition home or self-care (01) ==
PROVIDERS: Family Provider Internal Medicine; Visit Provider Anesthesiology Pain Medicine
DX: Z08 Encounter for follow-up examination after completed treatment for malignant neoplasm (principal); Z85.821 Personal history of Merkel cell carcinoma; F17.220 Nicotine dependence, chewing tobacco, uncomplicated; C4A.61 Merkel cell carcinoma of right upper limb, including shoulder; D75.89 Other specified diseases of blood and blood-forming organs; S32.000A Wedge compression fracture of unspecified lumbar vertebra, initial encounter for closed fracture
CPT/HCPCS: 94060; 94726; 94729; J7613

== ENCOUNTER 2025-01-16 14:00 | Inpatient (IN) | payer MEDICARE, MEDICAID, SELFPAY ==
[2025-01-16] VITALS (34 sets, daily range): BP systolic 70–122; BP diastolic 45–96; PULSE 81–131; RESP 15–32; TEMP 36.5–36.6; O2SAT 92–100; BMI 27.4
--- OUTSIDE RECORDS SUMMARY | 2025-01-16 14:41 | XMS_ITS | Clinical Summary ---
Author Organization [facility] Address [address] [address] Care Team Providers Care Lead Quality Control Technician Name Role Phone Migue Leo MD Unavailable [phone] Wally Manuel MD Unavailable Luis Templeton MD Unavailable [phone] Natalia Alvarado NP Primary Care Provider [phone] Allergies Active Allergy Reactions Criticality Noted Date [...] often do you attend chur ch or protestant services? 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 Plan of Treatment Health Maintenance Due Date [...] 07/09/2015, 04/09/2015 Medical Devices Implanted Type Area Dredge Pumper Device Identifier Shelf Expiration Date Model / Serial / Lot [employer] Vertaplex Hv [employer]oplex Without Needle Delivery System Kit Bone [id number] - [id number] Implanted:Qty: 1 on 11/06/2021 by Wally Manuel MD at [facility] Bone Cement [employer] 09/02/2024 [id number] / [id number] / [id number] Insurance [place] [employer] [place]ICARE [place] [employer] [place]IC[place] [facility] Address: [address] [address] [place] [address] [place] [employer] Advance Directives For more information, please contact: [phone] * Full Code (Latest Code Status on File) Date Activated Date Inactivated Comments 11/01/2021 12:13 PM 11/06/2021 8:41 PM Care Teams Lead Quality Control Technician Relationship Specialty Start Date End Date Natalia Alvarado NP [address] [facility] [address] [place] [address] PCP - General Nurse Practitioner 09/21/24 Migue Leo MD [address] [address] Consulting Physician Pulmonary Disease 11/06/21 Wally Manuel MD [address] [facility] [address] [place] [address] Anesthesiologist Anesthesiology 11/06/21 Luis Templeton MD [address] [place] [address] Consulting Physician Urology 06/08/23
--- OUTSIDE RECORDS SUMMARY | 2025-01-16 14:41 | XMS_ITS | Clinical Summary ---
Author Organization [facility] Address [address] King: [place] [address] Care Team Providers Care Casino Porter Name Role Phone Unavailable Primary Care Provider [...] times daily. 1/2 tablet twice daily Active HYDROcodone-acet aminophen (NORCO) 7.5-325 mg TabletIndication s:Compression fracture of thoracic vertebra, unspecified thoracic vertebral level, initial encounter Take 1 Tablet by mouth every 4 hours as needed for Pain, Moderate. Max Daily Amount: 6 Tablets 20 Tablet 09/09/20 25 Active predniSONE (DELTASONE) 5 mg tablet 50 mg x 2 days 40 mg x 2 days 30 mg x 2 days 20 mg x 2 days 10 mg x 2 days 5 mg x 2 days 62 Tablet 12/12/19 25 Active Active Problems Problem Noted Date [...] are noted during his recent admission to [facility]. Patient endorses unrefreshing sleep and snoring. He scored a 7 on the [place] Sleepiness Scale. Sleep study was ordered at [...] 01/08/2017 Overview (07/07/2021): Per Dr Kirill Keen. [phone]. . [facility], [address] [place] [address]. Status post lung biopsy Per Dr Kirill Keen. [phone]. . [facility], [address] [place], [place]. Status post lung biopsy Patient suffered [...] 09/28/2016 Overview (07/07/2021): Referral in place to building economist in [place]. FVC 2.47-56% predicted, FEV1 0.87-33% predicted. TLC 7.53-118%, vital capacity 3.01-68%, DLCO 18.73 68%. Consistent with severe COPD Pulmonolgist Queta SAMANIEGO at [facility] feels like it is Sarcoidosis. The [facility] lymph node biopsy by Bernardino MAURICIO December 03, [address] Joshua Leo. No granulomas were noted, negative for malignancy. TERRA level normal at 11. Due to ongoing suspicion about sarcoidosis he was started on prednisone 40 mg daily for 3 months with Bactrim DS for PCP prophylaxis. This is the plan per Dr.Soberano Romero - pulmonary 350, [address] [place] [address]. [phone], fax [phone] to building economist in [place]. FVC 2.47-56% predicted, FEV1 0.87- 33% predicted. TLC 7.53-118%, vital capacity 3.01-68%, DLCO 18.73 68%. Consistent with severe COPD Pulmonollaquita Birch MD at [facility] feel like it is Sarcoidosis. The [facility] lymph node biopsy by Bernardino MAURICIO December [birth year], [address] Joshua Leo. No granulomas were noted, negative for malignancy. TERRA level normal at 11. Due to ongoing suspicion about sarcoidosis he was started on prednisone 40 mg daily for 3 months with Bactrim DS for PCP prophylaxis. This is the plan per JOANNE Espinoza - pulmonary 350, [address] [place] [address]. [phone], fax [phone] History of acute renal failure September 2016 017 Hx of acute respiratory failure with hypoxemia J une 201609/28/2016 CAD, s/p stent x 2 (2015) 09/28/2016 Overview (07/31/2020): Cardiac stents X 04 Aug 2015-continues on Plavix. Cariologist Dr Yu in [place] History of exposure to tuberculosis 09/28/2016 Overview [...] Encounters Date Type Department Care Team Description 01/09/2025 Orders Only [facility] Cancer and Hematology [place] [address] [facility] [address] [place] [address] Jose Hughes MD Hx of basal cell carcinoma (BCC) of left post-auricular sulcus (Primary Dx); Leukocytosis, unspecified type 01/01/2025 Orders Only [facility] Cancer and Hematology [place] [address] [phone] Jose Hughes MD Personal history of PE (pulmonary embolism) (Primary Dx); History of acute renal failure September 2016; Immunosuppression due to chronic steroid use; Chronic anticoagulation; Thrombocytosis, unspecified; Abnormal finding of blood chemistry, unspecified 12/18/2024 4:15 AM CDT - 12/18/2024 11:59 PM CDT Hospital Encounter [facility] Emergency Medical Services [address] [address] Ambulance, [facility] Discharge Disposition: [facility] 12/18/2024 External Device Data STL ABSTRACTION Provider, Abstract 12/11/2024 8:13 PM CDT - 12/11/2024 10:35 PM T Emergency [facility] Emergency Medicine [address] [place] [address] Nicolás Slaughter MD Chronic obstructive pulmonary disease with acute exacerbation (CMS/HCC) (Primary Dx); Bilateral thoracic back pain, unspecified chronicity; Compression fracture of thoracic vertebra, unspecified thoracic vertebral level, initial encounter (CMS/HCC) Discharge Disposition: Home or Self Care 12/11/2024 Travel 12/11/2024 External Device Data [place] ABSTRACTION Provider, Abstract 12/04/2024 7:05 AM CDT - 12/04/2024 11:59 PM CDT Hospital Encounter [facility] Emergency Medical Services [place] [address] [place] [address] Ambulance, [facility] Discharge Disposition: [facility] 11/20/2024 Refill [facility] Ophthalmology 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 Gender Identity Not on file Sexual Orientation [...] 12/11/2024 8:23 PM CDT Plan of Treatment Health Maintenance Due Date Last Done Comments DTAP/TDAP/TD VACCINES (1 - Tdap) 1981 Traditional Medicare (ACO) Annual Wellness Visit 01/17 COLORECTAL SCREENING 2007 Colorectal Cancer Screening 2007 FIT-DNA Q 3 years 2007 FIT/FOBT Q 1 year 2007 Flex Sig/CT Colonography Q 5 years 2007 ZOSTER VACCINE (1 of 2) 01/18/2012 RSV VACCINE (60+ or ) (1 - Risk 60-74 years 1-dose series) 2022 INFLUENZA VACCINE (#1) 2024 Pre-Diabetes and Diabetes Screening 05/11/202705/11 Medical Devices Implanted Type Area Meat Press Operator Device Identifier Shelf Expiration Date Model / Serial / Lot Stent Percuflex+ 4.8fr 24cm [id number] - [id number] Implanted:Qty: 1 on 02/06/2023 by Lencho Acosta MD at [facility] Stent Left: Ureter [employer]ACCOUNTS RECEIVABLE PROCESSOR [id number] 06/10/2025 [id number] 20 / / [id number] Explanted Type Area Meat Press Operator Device Identifier Shelf Expiration Date Model / Serial / Lot Stent Contour [id number] - [id number] Explanted:Qty: 1 on 02/06/2023 by Lencho Acosta MD at [facility] Stent Left: Ureter [employer]/ACCOUNTS RECEIVABLE PROCESSOR [id number] 09/14/2025 [id number] 20 / / [id number] Procedures Procedure Name Priority Date/Time Associated Diagnosis Comments TROPONIN BASELINE, 5TH GEN Stat 12/11/2024 9:36 PM CDT BRAIN NATRIURETIC PEPTIDE, BNP OR PROBNP Stat 12/11/2024 9:36 PM CDT COMPREHENSIVE METABOLIC PANEL Stat 12/11/2024 9:36 PM CDT CBC WITH DIFFERENTIAL Stat 12/11/2024 9:36 PM CDT XR CHEST PA OR AP 1 VW Stat 9:25 PM CDT HEMOGLOBIN A1C Routine 05/11/2024 2:55 AM ARCHITECTURAL ASSOCIATE from Last 3 Months or Most Recently Relevant to Health Maintenance Results * (ABNORMAL) TROPONIN BASELINE, 5TH GEN (12/11/2024 9:36 PM CDT) Pathologist [facility] TROPONIN T, BASELINE 5TH GEN 51(H) <=15 ng/L 12/11/2024 10:09 PM CDT [facility] Blood BLOOD SPECIMEN / Unknown Collection / Unknown 12/11/2024 9:36 PM CDT 12/11/2024 9:48 PM CDT Narrative [facility] - 12/11/2024 10:09 PM CDT Troponin elevated. Nicolás Slaughter MD CHEMISTRY ORDERABLES Fin al Result [facility] CLIA # [id number] [address] [place] [address] * (ABNORMAL) CBC WITH DIFFERENTIAL (12/11/2024 9:36 PM CDT) WBC 25.8(H) 4.2 - 9.1 K/uL 12/11/2024 9:55 PM CDT [facility] RBC 4.08(L) 4.63 - 6.08 M/uL 12/11/2024 9:55 PM [facility] HEMOGLOBIN 12.8(L) 13.7 - 17.5 g/dL 12/11/2024 9:55 PM [facility] HEMATOCRIT 40.4 40.1 - 51.0 % 12/11/2024 9:55 PM [facility] MCV 99.0(H) 79.0 - 92.2 fL 12/11/2024 9:55 PM [facility] MCH 31.4 25.7 - 32.2 pg 12/11/2024 9:55 PM [facility] MCHC 31.7(L) 32.3 - 36.5 g/dL 12/11/2024 9:55 PM [facility] RDW 16.4(H) 11.0 - 14.5 % 12/11/2024 9:55 PM [facility] RDW-STDEV 59.6(H) 36.9 - 56.9 fL 12/11/2024 9:55 PM [facility] PLATELETS 298 130 - 400 K/uL 12/11/2024 9:55 PM [facility] MPV 10.3 10.0 - 14.8 fL 12/11/2024 9:55 PM [facility] NEUTROPHILS 89(H) 34 - 68 % 12/11/2024 9:55 PM [facility] LYMPHOCYTES 2(L) 22 - 53 % 12/11/2024 9:55 PM [facility] MONOCYTES 5 5 - 12 % 12/11/2024 9:55 PM [facility] EOSINOPHILS 0(L) 1 - 7 % 12/11/2024 9:55 PM [facility] BASOPHILS 0 0 - 1 % 12/11/2024 9:55 PM [facility] IMMATURE GRANULOCYTES 4 % 12/11/2024 9:55 PM [facility] NEUTROPHIL ABSOLUTE 23.02(H) 1.78 - 5.38 K/uL 12/11/2024 9:55 PM [facility] LYMPHOCYTE ABSOLUTE 0.44(L) 1.20 - 3.40 K/uL 12/11/2024 9:55 PM CDT [facility] MONOCYTE ABSOLUTE 1.27(H) 0.30 - 0.82 K/uL 12/11/2024 9:55 PM CDT [facility] EOSINOPHIL ABSOLUTE 0.02(L) 0.04 - 0.54 K/uL 12/11/2024 9:55 PM CDT [facility] BASOPHILS ABSOLUTE 0.08 0.01 - 0.08 K/uL 12/11/2024 9:55 PM CDT [facility] IMMATURE GRANULOCYTES ABSOLUTE 0.98 K/uL 12/11/2024 9:55 PM CDT [facility] Blood BLOOD SPECIMEN / Unknown Collection / Unknown 12/11/2024 9:36 PM CDT 12/11/2024 9:48 PM CDT Nicolás Slaughter MD HEMATOLOGY ORDERABLES Fi nal Result [facility] CLIA # [id number] [address] [place] [address] * BRAIN NATRIURETIC PEPTIDE, BNP OR PROBNP (12/11/2024 9:36 PM CDT) PROBNP, N TERMINAL <36 0 - 125 pg/mL 12/11/2024 10:09 PM CDT [facility] Comment: INTERPRETIVE COMMENT based on diagnosis: [...] Slaughter MD CHEMISTRY ORDERABLES Fin al Result [facility] CLIA # [id number] [address] [address] * (ABNORMAL) COMPREHENSIVE METABOLIC PANEL (12/11/2024 9:36 PM CDT) SODIUM 141 136 - 145 mmol/L 12/11/2024 10:09 PM [facility] POTASSIUM 4.6 3.5 - 5.1 mmol/L 12/11/2024 10:09 PM [facility] CHLORIDE 101 98 - 107 mmol/L 12/11/2024 10:09 PM [facility] CO2 24 22 - 29 mmol/L 12/11/2024 10:09 PM [facility] CALCIUM 9.4 8.8 - 10.2 mg/dL 12/11/2024 10:09 PM [facility] BUN 25(H) 8 - 23 mg/dL 12/11/2024 10:09 PM [facility] CREATININE 0.79 0.67 - 1.17 mg/dL 12/11/2024 10:09 PM [facility] GLUCOSE 170(H) 74 - 99 mg/dL 12/11/2024 10:09 PM [facility] TOTAL PROTEIN 6.4(L) 6.6 - 8.7 g/dL 12/11/2024 10:09 PM [facility] ALBUMIN 4.3 3.5 - 5.2 g/dL 12/11/2024 10:09 PM [facility] BILIRUBIN TOTAL 0.4 0.0 - 1.2 mg/dL 12/11/2024 10:09 PM [facility] ALKALINE PHOSPHATASE 141(H) 40 - 129 U/L 12/11/2024 10:09 PM [facility] AST 28 0 - 50 U/L 12/11/2024 10:09 PM CDT [facility] ALT 39 0 - 50 U/L 12/11/2024 10:09 PM CDT [facility] GFR >60 >=60 mL/min/1.7 3 sq meter 12/11/2024 10:09 PM CDT [facility] Comment:eGFR calculated with 2020 CKD-EPI equation. Vegetarian diet, extremely high or low muscle mass, and may affect results. Cystatin C with Glomerular Filtration Rate is a suitable alternative for these patients. ANION GAP 16 5 - 20 mmol/L 12/11/2024 10:09 PM CDT [facility] Blood BLOOD SPECIMEN / Unknown Collection / Unknown 12/11/2024 9:36 PM CDT 12/11/2024 9:48 PM CDT us Nicolás Slaughter MD CHEMISTRY ORDERABLES Fin al [id number] [address] [place] [address] * XR CHEST PA OR AP 1 [...] Shortness of Breath SOB ORDERING PROVIDER: [employer] NOTE: COMPARISON: September 2024 FINDINGS/IMPRESSION: Lines, tubes, and devices: None. Low lung volumes with bronchovascular crowding and bibasilar atelectasis. Patient is rotated. No significant effusion or pneumothorax. Heart size is stable. Postsurgical changes of the right axilla. Postprocedure changes from thoracic vertebral body vertebroplasty. Nicolás Slaughter MD DIAGNOSTIC IMAGING ORDER VON Final Result * (ABNORMAL) HEMOGLOBIN A1C (05/11/2024 2:55 AM ARCHITECTURAL ASSOCIATE) HEMOGLOBIN A1C 6.3(H) <=5.6 % 05/11/2024 9:50 PM ARCHITECTURAL ASSOCIATE [email or web address] [place] EST. AVG GLUCOSE, A1C 134 mg/dL 05/11/2024 9:50 PM ARCHITECTURAL ASSOCIATE [facility] [place] Blood BLOOD SPECIMEN / Unknown Venipuncture / Unknown 05/11/2024 2:55 AM ARCHITECTURAL ASSOCIATE 05/11/2024 3:23 AM ARCHITECTURAL ASSOCIATE Narrative [employer] [facility] [employer] - [place] - 05/11/2024 9:50 PM ARCHITECTURAL ASSOCIATE HGB A1C INTERPRETATION NORMAL: <5.7% PRE-DIABETES: 5.7 - 6.4% DIABETES: 6.5% OR GREATER Dawood Wilkins MD CHEMISTRY ORDERABLES Fin al Result [facility] [facility] [place] # [id number] [address] [facility] [place] [address] from Last 3 Months or Most Recently Relevant to Health Maintenance Insurance [place]ICAID [place] PART A AND B RX [employer] RX Member Subscriber Plan / Payer (Ef fective 2021-Present) Name:Partha Roe Relation to Subscriber:Self Name:Partha Roe Subscriber ID:Not on file Payer ID:Not on file Group ID:[id number] Type:RX Commercial Address: [address] Advance Directives For more information, please contact: [phone] * Full Code (Latest Code Status on [...]
--- OUTSIDE RECORDS SUMMARY | 2025-01-16 14:41 | XMS_ITS | Encounter Summary ---
Author Organization [facility] Address [address] [place] [address] Phone Care Team Providers Care Hairspring Studder Name Role Phone Refugio Bedoya Primary Care Provider [phone] Reason for Visit * Reason Comments Med Refill Encounter Details Date Type Department Care Team (Late st Contact Info) Description 10/02/2022 Refill [facility] [address] [place] [phone] Kirill Keen MD [address] [place] [address] Sarcoidosis Social History Tobacco Use Types Packs/Day [...] 8:34 AM CDT Prednisone refill sent to [facility]. * Telephone Encounter - Diana Carmichael LPN - 10/04/2022 8:29 AM CDT Please advise documented in this encounter Plan of Treatment Upcoming Encounters Date Type Department Care Team (Late st Contact Info) Description 03/12/2025 1:30 PM COLD STORAGE WORKER Office Visit [facility] MED[facility] OFF[facility] BUILDING [address] [place] [phone] Kirill Keen MD [facility] [address] [place], [place] [phone] documented as of this encounter Visit Diagnoses Diagnosis Sarcoidosis documented in this encounter Care Teams Hairspring Studder Relationship Specialty Start Date End Date Refugio Bedoya [facility] Medicine [address] [place] [address] [address] [place], [place] [id number] PCP - General 11/17/20 documented as of this encounter
--- OUTSIDE RECORDS SUMMARY | 2025-01-16 14:41 | XMS_ITS | Encounter Summary ---
Author Organization [facility] Address [address] [place] [address] Care Team Providers Care Java Scala Developer Name Role Phone Unavailable Primary Care Provider Unavailabl e Encounter Details Date Type Department Care Team (Late st Contact Info) Description 01/09/2025 Orders Only [facility] Cancer and Hematology [place] [address] [facility] [address] [place] [address] Jose Hughes MD [address] [facility] [address] [place] [address] Hx of basal cell carcinoma (BCC) of left post-auricular sulcus (Primary Dx); Leukocytosis, unspecified type Social History Tobacco Use Types Packs/Day Years [...] on file 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 Gender Identity Not on file Sexual Orientation Not on file documented as of this encounter Plan of Treatment Scheduled Orders Name Type Priority Associated Diagnoses Orde r Schedule D-DIMER Lab Routine Hx of basal cell carcinoma (BCC) of left post-auricular sulcus Leukocytosis, unspecified type Expected: 01/18/2025 (Approximate), Expires: 04/18/2025 CBC WITH DIFFERENTIAL Lab Routine Hx of basal cell carcinoma (BCC) of left post-auricular sulcus Leukocytosis, unspecified type Expected: 01/18/2025 (Approximate), Expires: 04/18/2025 COMPREHENSIVE METABOLIC PANEL Lab Routine Hx of basal cell carcinoma (BCC) of left post-auricular sulcus Leukocytosis, unspecified type Expected: 01/18/2025 (Approximate), Expires: 04/18/2025 LACTATE DEHYDROGENASE Lab Routine Hx of basal cell carcinoma (BCC) of left post-auricular sulcus Leukocytosis, unspecified type Expected: 01/18/2025 (Approximate), Expires: 04/18/2025 RETICULOCYTES Lab Routine Hx of basal cell carcinoma (BCC) of left post-auricular sulcus Leukocytosis, unspecified type Expected: 01/18/2025 (Approximate), Expires: 04/18/2025 FERRITIN Lab Routine Hx of basal cell carcinoma (BCC) of left post-auricular sulcus Leukocytosis, unspecified type Expected: 01/18/2025 (Approximate), Expires: 04/18/2025 IRON, TIBC, AND PERCENT SATURATION Lab Routine Hx of basal cell carcinoma (BCC) of left post-auricular sulcus Leukocytosis, unspecified type Expected: 01/18/2025 (Approximate), Expires: 04/18/2025 VITAMIN B12 AND FOLATE Lab Routine Hx of basal cell carcinoma (BCC) of left post-auricular sulcus Leukocytosis, unspecified type Expected: 01/18/2025 (Approximate), Expires: 04/18/2025 documented as of this encounter Visit Diagnoses Diagnosis Hx of basal cell carcinoma (BCC) of left post-auricular sulcus- Primary Leukocytosis, unspecified type documented in this encounter
--- OUTSIDE RECORDS SUMMARY | 2025-01-16 14:41 | XMS_ITS | Clinical Summary ---
Author Organization [facility] Address [address] [place] [address] Phone Care Team Providers Care Car Shagger Name Role Phone Refugio Bedoya Primary Care Provider [phone] Allergies Active Allergy Reactions Criticality Noted Date [...] of candidiasis. Do not swallow. 12 g 12/26/19 24 Active Additional Information Patient not taking.Reported on 05/30/2024 apixaban (ELIQUIS ORAL) Take by mouth. Activ e albuterol (Proventil;Ventoli n) 90 mcg/actuation inhalerIndications :Sarcoidosis,Stage 3 severe COPD by GOLD classification ([facility]) Inhale 2 puffs 4 (four) times a day if needed for wheezing or shortness of breath. 18 g 06/05/19 25 Active albuterol 2.5 mg /3 mL (0.083 %) nebulizer solutionIndication s:Chronic obstructive pulmonary disease, unspecified COPD type ([facility]) Take 3 mL (2.5 mg total) by nebulization every 4 (four) hours if needed for wheezing. 360 mL 07/03/19 25 025 Active predniSONE (Deltasone) 20 mg tabletIndications: Sarcoidosis Take 1 tablet (20 mg total) by mouth 1 (one) time each day. 30 tablet 12/12/19 25 Active sulfamethoxazole-t rimethoprim (Bactrim DS,Septra DS) 800-160 mg tabletIndications: Sarcoidosis Take 1 tablet MWF. 12 tablet 12/12/19 25 Active Hospital, Clinic, or Other Facility Administered [...] loss. Assessment & Plan (06/01/2022 2:02 PM COMMERCIAL LOAN ASSISTANT): Body mass index is 29.62 kg/m . Discuss importance of a healthy diet, routine exercise, and weight loss. Assessment & Plan (03/18/2022 1:29 PM COMMERCIAL LOAN ASSISTANT): Body mass index is 27.29 kg/m [...] snoring. He scored a 7 on the [place] Sleepiness Scale. Sleep study was ordered at his November 2021 visit, but multiple appointments were canceled by the patient. Assessment & Plan (03/18/2022 1:31 PM COMMERCIAL LOAN ASSISTANT): Patient should avoid driving while sleepy [...] days. Assessment & Plan (05/30/2024 2:27 PM COMMERCIAL LOAN ASSISTANT): Cough, sputum production, shortness of breath, [...] cessation. Assessment & Plan (05/03/2023 3:04 PM COMMERCIAL LOAN ASSISTANT): Cough, sputum production, shortness of breath, [...] cessation. Assessment & Plan (06/01/2022 2:03 PM COMMERCIAL LOAN ASSISTANT): Advise cessation. Allergic rhinitis due to animal hair and dander 06/17/2021 Overview (01/18/2024): Region 8 allergen panel was positive for cat dander on 11/01/2016, and his total serum IgE was 86. Assessment & Plan (05/30/2024 2:12 PM COMMERCIAL LOAN ASSISTANT): Recommend Rosanne, Claritin, Zyrtec, or Xyzal for symptomatic relief. Assessment & Plan (01/18/2024 1:40 PM CDT): Recommend Rosanne, Claritin, Zyrtec, or Xyzal for symptomatic relief. Assessment & Plan (09/20/2023 10:35 AM CDT): Recommend Rosanne, Claritin, Zyrtec, or Xyzal for symptomatic relief. Assessment & Plan (05/03/2023 3:04 PM COMMERCIAL LOAN ASSISTANT): Recommend Rosanne, Claritin, Zyrtec, or Xyzal for symptomatic relief. Assessment & Plan (12/28/2022 1:10 PM CDT): Recommend Rosanne, Claritin, Zyrtec, or Xyzal for symptomatic relief. Assessment & Plan (08/31/2022 1:30 PM CDT): Recommend Rosanne, Claritin, Zyrtec, or Xyzal for symptomatic relief. Assessment & Plan (06/01/2022 2:03 PM COMMERCIAL LOAN ASSISTANT): Recommend Rosanne, Claritin, Zyrtec, or Xyzal for symptomatic relief. Assessment & Plan (03/18/2022 1:29 PM COMMERCIAL LOAN ASSISTANT): Recommend Rosanne, Claritin, Zyrtec, or Xyzal [...] was previously diagnosed with mild COPD at [facility]. Insurance does not cover Symbicort or Spiriva Respimat. Assessment & Plan (05/30/2024 2:12 PM COMMERCIAL LOAN ASSISTANT): Continue Advair HFA 230/21 mcg 2 [...] cough. Assessment & Plan (05/03/2023 3:10 PM COMMERCIAL LOAN ASSISTANT): Continue Advair HFA 230/21 mcg 2 [...] cough. Assessment & Plan (06/01/2022 2:02 PM COMMERCIAL LOAN ASSISTANT): Continue Advair HFA 230/21 mcg 2 puffs twice daily. Advised mouth rinsing after use to avoid thrush. Continue Incruse 62.5 mcg 1 inhalation daily. Continue albuterol HFA/nebs 4 times daily as needed for shortness of breath, wheezing, cough. Assessment & Plan (03/18/2022 1:29 PM COMMERCIAL LOAN ASSISTANT): Continue Advair HFA 230/21 mcg 2 [...] deferred. Assessment & Plan (05/30/2024 2:12 PM COMMERCIAL LOAN ASSISTANT): Prednisone 20 mg daily with Bactrim [...] involvement. Assessment & Plan (05/03/2023 3:04 PM COMMERCIAL LOAN ASSISTANT): Continue prednisone 20 mg daily with [...] prophylaxis. Assessment & Plan (06/01/2022 2:05 PM COMMERCIAL LOAN ASSISTANT): Continue prednisone 20 mg daily with Bactrim DS MWF for pneumocystis prophylaxis. Assessment & Plan (03/18/2022 1:41 PM COMMERCIAL LOAN ASSISTANT): Discussed alternative steroid sparing agents due [...] Telemedicine [facility] [address] [place] [id number] Kirill Keen MD Sarcoidosis (Primary Dx); Stage 3 severe COPD by GOLD classification (CMS/HCC); Centrilobular emphysema (CMS/HCC); Allergic rhinitis due to animal hair and dander; Smokeless tobacco use; Second hand smoke exposure; Non-smoker; Immunization counseling 11/27/2024 Telephone [facility] [address] [place] [phone] Kirill Keen MD Reschedule from Last 3 Months Family History Medical [...] Recorded Patient Health Questionnaire-2 Score 0 05/30/2024 [facility] - Mental Health Answer Date Recorde d [...] Comments Blood Pressure 115/75 05/30/2024 2:13 PM COMMERCIAL LOAN ASSISTANT Pulse 84 05/30/2024 2:13 PM COMMERCIAL LOAN ASSISTANT Temperature 36.7 C (98 F) 05/30/2024 2:13 PM COMMERCIAL LOAN ASSISTANT Respiratory Rate 20 05/30/2024 2:13 PM COMMERCIAL LOAN ASSISTANT Oxygen Saturation 97% 05/30/2024 2:13 PM COMMERCIAL LOAN ASSISTANT Inhaled Oxygen Concentration - - Weight 71.7 kg (158 lb) 05/30/2024 2:13 PM COMMERCIAL LOAN ASSISTANT Height 165.1 cm (5' 5 ) 05/30/2024 2:13 PM COMMERCIAL LOAN ASSISTANT Body Mass Index 26.29 05/30/2024 2:13 PM COMMERCIAL LOAN ASSISTANT Plan of Treatment Upcoming Encounters Date Type Department Care Team (Late st Contact Info) Description 03/12/2025 1:30 PM COMMERCIAL LOAN ASSISTANT Office Visit [facility] BUILDING [address] [id number] Kirill Keen MD [address] [place], [place] [address] Health Maintenance Due Date Last Done Comments [...] patient's age to complete this topic Insurance G4S MEDICARE Care Teams Car Shagger Relationship Specialty Start Date End Date Refugio Bedoya [facility] Medicine [address] [place] [address] [address] [place] [address] PCP - General 11/17/20
--- OUTSIDE RECORDS SUMMARY | 2025-01-16 14:41 | XMS_ITS ---
Author Organization [facility] Address [address] King: Epic Prelude ADT JACY GEIGER [id number] Care Team Providers Care Life Skills Coordinator Name Role Phone Unavailable Primary Care Provider [...] are noted during his recent admission to [facility]. Patient endorses unrefreshing sleep and snoring. He scored a 7 on the [place] Sleepiness Scale. Sleep study was ordered at [...] 01/08/2017 Overview (07/07/2021): Per Dr Kirill Keen. [phone]. . [facility], [address] [place] [address]. Status post lung biopsy Per Dr Kirill Keen. [phone]. . [facility], [address] [place] [address]. Status post lung biopsy Patient suffered multiple [...] 09/28/2016 Overview (07/07/2021): Referral in place to silk screen cutter in [place]. FVC 2.47-56% predicted, FEV1 0.87-33% predicted. TLC 7.53-118%, vital capacity 3.01-68%, DLCO 18.73 68%. Consistent with severe COPD Pulmonollaquita Birch MD at [facility] feels like it is Sarcoidosis. The [facility] lymph node biopsy by Bernardino MAURICIO December 03, [address] Joshua Leo. No granulomas were noted, negative for malignancy. TERRA level normal at 11. Due to ongoing suspicion about sarcoidosis he was started on prednisone 40 mg daily for 3 months with Bactrim DS for PCP prophylaxis. This is the plan per , [facility] - pulmonary 350, [address] [address]. [phone], fax [phone] to silk screen cutter in [place]. FVC 2.47-56% predicted, FEV1 0.87- 33% predicted. TLC 7.53-118%, vital capacity 3.01-68%, DLCO 18.73 68%. Consistent with severe COPD Pulmonollaquita Birch MD at [facility] like it is Sarcoidosis. The [facility] lymph node biopsy by E HANG December [birth year], [address] Joshua Leo. No granulomas were noted, negative for malignancy. TERRA level normal at 11. Due to ongoing suspicion about sarcoidosis he was started on prednisone 40 mg daily for 3 months with Bactrim DS for PCP prophylaxis. This is the plan per Dr.Soberano [facility] - pulmonary [address], [address] [place] [id number]. [phone], fax [phone] History of acute renal failure September 2016 017 Hx of acute respiratory failure with hypoxemia J une 2017 09/28/2016 CAD, s/p stent x 2 (2015) 09/28/2016 Overview (07/31/2020): Cardiac stents X 04 Aug 2015-continues on Plavix. Cariologist Dr Yu in [place] History of exposure to tuberculosis 09/28/2016 Overview [...]
[2025-01-16 14:54] LABS: Hematocrit 36.5 % (37-53); Hemoglobin 11.40 g/dL (11.27-16.99); Mean Corpuscular HGB Conc 31.2 g/dL (30-55); Mean Corpuscular Hemoglobin 30.7 pg (27-33); Mean Corpuscular Volume 98.4 fl (82-101); Platelet Count 550 10^3/cmm (157-399); Red Blood Count 3.71 10^6/uL (3.85-5.65); White Blood Count 19.36 10^3/uL (3.29-11.43)
--- NOTE | 2025-01-16 14:58 | XR_ITS ---
WS: [id number] XR chest 1V portable [id number] REASON FOR EXAM: dyspnea/cough FINDINGS: Examination is rotated and cranial to caudal angulated. Likely the chest is unchanged compared to 01/03/2025. No acute pulmonary parenchymal or pleural abnormality is identified. XR/XR chest 1V portable [id number] IMPRESSION: Presumed stable chest without acute abnormality as above.
[2025-01-16 15:11] LABS: Alanine Aminotransferase 12 U/L (0-41); Albumin Level 3.5 g/dL (3.5-5.2); Alkaline Phosphatase 120 U/L (40-130); Anion Gap 25.7 (5-19); Aspartate Amino Transferase 12 U/L (0-40); Blood Urea Nitrogen 37 mg/dL (8-23); Calcium 9.3 mg/dL (8.5-10.5); Carbon Dioxide 17 mmol/L (22-29); Chloride 93 mmol/L (98-107); Creatinine Clr Calc Pharmacy 41.1348; Globulin 2.8 g/dL (1.3-4.6); Glucose 168 mg/dL (65-115); Osmolality Calculated 287 mOsm/kg (285-295); Potassium 3.7 mmol/L (3.5-5.1); Sodium 132 mmol/L (136-145); Total Protein 6.3 g/dL (6.6-8.7)
[2025-01-16 15:14] LABS: Lactic Sepsis W/Reflex 8.2 mmol/L (0.5-2.2)
[2025-01-16 15:21] LABS: Slide Review Slide Review Perform
[2025-01-16 15:22] LABS: Absolute Segmented Neutrophil 14.1 10/cmm (1.6-7.1); Atypical Lymphs 1.0 % (0-5); Band Neutrophils Absolute 0.2 10^3/cmm (0.0-1.2); Total Cells Counted 100 (0-100)
[2025-01-16 15:23] LABS: Anisocytosis 1+; Giant Platelets Trace
[2025-01-16] MEDS: piperacillin-tazobactam 3.375 GM in sodium chloride 0.9% (plus) 50 ML IV (16:26)
--- NOTE | 2025-01-16 16:30 | W.ED.EXTPRO ---
HPI - Extremity Problem General: Chief complaint: Extremity Problem,Nontraumatic Stated complaint: both legs swelling and painfull Time Seen by Provider: 01/16/25 14:31 History of Present Illness: 64-year-old male presents to the emergency room with complaints of swelling and pain in his legs getting progressively worse over the last 2 weeks. Patient has been increasingly weak he is also noted low blood pressures last couple of days denies chest pain or abdominal pain. Associated symptoms: Deny chest pain, fever(s) or rash Related Data Home Medications ?Medication ?Instructions ?Recorded ?Confirmed aspirin 81 mg tablet 81 mg PO DAILY 10/01/24 01/16/25 brimonidine 0.2 % eye drops 1 drp ophthalmic (eye) BID 12/04/24 01/16/25 dorzolamide 2 % eye drops 1 drp ophthalmic (eye) BID 12/04/24 01/16/25 imiquimod 5 % topical cream packet See Rx Instructions .Route .COMPLEX 12/04/24 01/16/25 buspirone 7.5 mg tablet 7.5 mg PO TID PRN Anxiety 12/18/24 01/16/25 furosemide 40 mg tablet 40 mg PO QAM PRN edema/heart 01/16/25 01/16/25 losartan 50 mg tablet 50 mg PO DAILY blood pressure 01/16/25 01/16/25 prednisone 20 mg tablet 20 mg PO DAILY 01/16/25 01/16/25 sulfamethoxazole 800 1 tab PO .MON, WED, FRI 01/16/25 01/16/25 mg-trimethoprim 160 mg tablet Previous Rx's ?Medication ?Instructions ?Recorded simvastatin 40 mg tablet 40 mg PO QPM #30 tabs 05/08/24 nitroglycerin 0.4 mg sublingual 0.4 mg sublingual Q5M PRN chest 05/16/24 tablet pain #30 tabs empagliflozin 10 mg tablet 10 mg PO DAILY #30 tabs 08/20/24 (Jardiance) metoprolol succinate 25 mg 12.5 mg (1/2 x 25 mg) PO BID #60 08/20/24 tablet,extended release 24 hr tabs albuterol sulfate 90 mcg/actuation 2 puff inhalation Q6H PRN 12/06/24 aerosol inhaler (Ventolin HFA) breathing #8.5 grams gabapentin 100 mg capsule 100 mg PO BID #60 caps 12/10/24 apixaban 5 mg tablet (Eliquis) 5 mg PO BID #60 tabs 12/14/24 Nebulizer with tubing and filter #1 ea 12/17/24 fluticasone fur. 100 mcg-umeclid 1 inh inhalation DAILY #28 ea 12/17/24 62.5 mcg-vilant 25 mcg inhalat.powder (Trelegy Ellipta) albuterol sulfate 2.5 mg/3 mL 2.5 mg (3 mL) inhalation Q4H PRN 12/20/24 (0.083 %) solution for nebulization Wheezing #30 mL glucometer testing kit #1 ea 12/21/24 insulin aspart U-100 100 unit/mL See Rx Instructions .Route 12/21/24 (3 mL) subcutaneous pen (Novolog .COMPLEX #15 mL FlexPen U-100 Insulin aspart) insulin glargine 100 unit/mL (3 15 unit (0.15 mL) SUBCUT QPM 30 12/21/24 mL) subcutaneous pen (Basaglar days #15 mL KwikPen U-100 Insulin) Allergies Allergy/AdvReac Type Severity Reaction Status Date / Time cat dander Allergy Mild ADR-Swelling Verified 01/16/25 14:14 of the Eye ibuprofen Allergy Unknown Unknown Verified 01/16/25 14:14 menthol Allergy Unknown Verified 01/16/25 14:14 ketorolac (From Toradol) AdvReac renal Verified 01/16/25 14:14 failure Review of Systems Const: Denies: fever(s) or chills Card: Denies: chest pain Resp: Denies: dyspnea GI: Denies: abdominal pain : Denies: dysuria, urinary frequency or urinary urgency Musc: Denies: neck pain or back pain Skin/Breast: Denies: rash PFSH ED PFSH: Medical History Enrolled in chronic care management Depression Pulmonary embolism Type 2 diabetes mellitus without complication, without long-term current use of insulin 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 Left ureteral calculus 02/09/2023 [facility] Bilateral lower extremity edema Non-smoker COPD (chronic obstructive pulmonary disease) Pulmonary sarcoidosis Hyperlipidemia ASHD (arteriosclerotic heart disease) 2016 stents x2 HTN (hypertension) Surgical History History of eye surgery History of back surgery H/O bilateral cataract extraction S/P PTCA (percutaneous transluminal coronary angioplasty) S/P cholecystectomy S/P skin cancer resection Family History Brother CAD (coronary artery disease) valve replaced Mother Lung disease Denies family history of Diabetes Clotting disorder Dementia Chronic kidney disease (CKD) Suicide Anesthesia complication Bleeding disorder Cancer Stroke Social History Smoking and tobacco/nicotine status: never used tobacco/nicotine Second hand smoke exposure: No Alcohol intake: never Substance/Drug Use: never Physical Exam Const: COMMON NORMALS: no acute distress GENERAL APPEARANCE: cooperative and comfortable ORIENTATION/CONSCIOUSNESS: Yes awake HENMT: COMMON NORMALS: normocephalic, atraumatic and hearing grossly normal bilaterally HEAD & SCALP: normocephalic and atraumatic Resp: COMMON NORMALS: normal respiratory effort, No retractions, No use of accessory muscles and clear to auscultation bilaterally AUSCULTATION: clear to auscultation bilaterally Cardio: COMMON NORMALS: regular rate, regular rhythm and No murmurs present (Cardio) RATE: regular rate RHYTHM: regular rhythm GI: COMMON NORMALS: Soft to palpation and No hepatosplenomegaly present AUSCULTATION: Yes normoactive bowel sounds PALPATION: Yes Soft to palpation, No Tenderness to palpation present (GI), No Guarding due to palpation present (GI) and Yes No hepatosplenomegaly present Extremity: OTHER: Redness erythema bilateral of lower extremities with induration 2+ edema some serous weeping of fluids from venous stasis ulcers no obvious ulcer or at abscess. Skin: COMMON NORMALS: no rashes or lesions noted GENERAL SKIN EXAM: no rashes or lesions noted Course Vital Signs: Vital signs: Vital Signs Temperature 97.7 F 01/16/25 14:09 Pulse Rate 112 H 01/16/25 17:53 Respiratory Rate 19 H 01/16/25 17:53 Blood Pressure 91/69 01/16/25 17:53 Pulse Oximetry 97 01/16/25 17:53 Oxygen Delivery Me thod Room Air 01/16/25 17:53 MDM - Extremity (Nontraumatic) Medical Decision Making Patient presents in acute sepsis with septic shock hypotension he has third spacing of fluids and his lower extremity source infection is his cellulitis. His white count of 19,000 with a left shift. Lactic acid elevated 8.2. Initial systolic blood pressures in the 60s. Patient given IV fluid bolus cultures done and started on IV antibiotics. Will admit to the hospitalist discussed with hospitalist orders written Lab Data 01/16/25 14:40 01/16/25 14:40 Radiology Impressions Chest X-Ray 01/16/25 14:58 IMPRESSION: Presumed stable chest without acute abnormality as above. Laboratory Results WBC 19.36 10^3/uL (3.29-11.43) H 01/16/25 14:40 RBC 3.71 10^6/uL (3.85-5.65) L 01/16/25 14:40 Hgb 11.40 g/dL (11.27-16.99) 01/16/25 14:40 Hct 36.5 % (37-53) L 01/16/25 14:40 MCV 98.4 fl (82-101) 01/16/25 14:40 MCH 30.7 pg (27-33) 01/16/25 14:40 MCHC 31.2 g/dL (30-55) 01/16/25 14:40 RDW 16.7 % (12.1-15.1) H 01/16/25 14:40 Plt Count 550 10^3/cmm (157-399) H D 01/16/25 14:40 MPV 9.7 fL (7.4-10.4) 01/16/25 14:40 Lymph % (Auto) Not Reportable 01/16/25 14:40 [place] % (Auto) Not Reportable 01/16/25 14:40 Lymph # (Auto) Not Reportable 01/16/25 14:40 [place] # (Auto) Not Reportable 01/16/25 14:40 Total Counted 100 (0-100) 01/16/25 14:40 Atypical Lymphs % 1.0 % (0-5) 01/16/25 14:40 Absolute Neutrophils 14.3 10^3/cmm (1.4-6.5) H 01/16/25 14:40 Segmented Neutrophils 73 % 01/16/25 14:40 Band Neutrophils 1.0 % 01/16/25 14:40 Absolute Lymphocytes 1.7 10^3/cmm (1.2-3.4) 01/16/25 14:40 Lymphocytes (Manual) 8 % 01/16/25 14:40 Monocytes (Manual) 12.0 % 01/16/25 14:40 Absolute Monocytes 2.3 10^3/cmm (0.1-0.6) H 01/16/25 14:40 Eosinophils (Manual) 1 % 01/16/25 14:40 Absolute Eosinophils 0.2 10^3/cmm (0.0-0.7) 01/16/25 14:40 Basophils (Manual) 0.0 % 01/16/25 14:40 Absolute Basophils 0.0 10^3/cmm (0.0-0.2) 01/16/25 14:40 Metamyelocytes 2.0 % 01/16/25 14:40 Myelocytes 2.0 % 01/16/25 14:40 Platelet Estimate Increased (Normal) 01/16/25 14:40 Giant Platelets Trace 01/16/25 14:40 Anisocytosis 1+ H 01/16/25 14:40 ESR 53 mm/hr (0-10) H 01/16/25 14:40 Sodium 132 mmol/L (136-145) L 01/16/25 14:40 Potassium 3.7 mmol/L (3.5-5.1) 01/16/25 14:40 Chloride 93 mmol/L (98-107) L 01/16/25 14:40 Carbon Dioxide 17 mmol/L (22-29) L 01/16/25 14:40 Anion Gap 25.7 (5-19) H 01/16/25 14:40 BUN 37 mg/dL (8-23) H 01/16/25 14:40 Creatinine 1.7 mg/dL (0.7-1.2) H 01/16/25 14:40 GFR Calculation 41.0 mL/min (90-130) L 01/16/25 14:40 Glucose 168 mg/dL (65-115) H 01/16/25 14:40 Calculated Osmolality 287 mOsm/kg (285-295) 01/16/25 14:40 Lactic Acid 8.2 mmol/L (0.5-2.2) H* 01/16/25 14:40 Lactic Acid (Sepsis) 3.6 mmol/L (0.5-2.2) H 01/16/25 17:20 Calcium 9.3 mg/dL (8.5-10.5) 01/16/25 14:40 Total Bilirubin 0.2 mg/dL (0.15-1.2) 01/16/25 14:40 AST 12 U/L (0-40) 01/16/25 14:40 ALT 12 U/L (0-41) 01/16/25 14:40 Alkaline Phosphatase 120 U/L (40-130) 01/16/25 14:40 Total Protein 6.3 g/dL (6.6-8.7) L 01/16/25 14:40 Albumin 3.5 g/dL (3.5-5.2) 01/16/25 14:40 Globulin 2.8 g/dL (1.3-4.6) 01/16/25 14:40 Urine Color Yellow (Yellow) 01/16/25 16:30 Urine Appearance Clear (CLEAR) 01/16/25 16:30 Urine pH 5.0 (5-7) 01/16/25 16:30 Ur Specific [place] 1.029 (1.005-1.030) 01/16/25 16:30 Urine Protein Trace (Negative) A 01/16/25 16:30 Urine Glucose (UA) 3+ (Normal) H 01/16/25 16:30 Urine Ketones Trace (Negative) 01/16/25 16:30 Urine Blood 2+ (Negative) A 01/16/25 16:30 Urine Nitrate Negative (Negative) 01/16/25 16: Urine Bilirubin Negative (Negative) 01/16/25 16: Urine Urobilinogen 1.0 mg/dL (Negative) 01/16/25 16:30 Ur Leukocyte Esterase 1+ (Negative) A 01/16/25 16:30 Urine RBC 11-20 /hpf (0-2) H 01/16/25 16:30 Urine WBC 6-10 /hpf (0-5) 01/16/25 16:30 Ur Squamous Epith Cells 6-10 /hpf (0-5) 01/16/25 16:30 Amorphous Sediment Trace /hpf 01/16/25 16:30 Urine Bacteria Trace /hpf (NONE) 01/16/25 16:30 Hyaline Casts 151.84 /lpf 01/16/25 16:30 Fine Granular Casts 0-4 /lpf H 01/16/25 16:30 All radiology interpretation(s) finalized by discharge Discharge Plan Discharge Patient Disposition: Admitted As Inpatient Clinical Impression: Septic shock, Cellulitis, Acute kidney injury superimposed on chronic kidney disease, Acute hyperkalemia Condition: Stable Coding Level of Care Code ED [employer] for Mirna Harman
[2025-01-16 16:38] LABS: Reflex Lactate Order REFLEX LACTIC ORDERD
--- NOTE | 2025-01-16 16:42 | PM.HP ---
Providers/Chief Complaint Primary Care Provider: Natalia Alvarado NP Chief Complaint: both legs swelling and painfull History of Present Illness Partha Roe is a 64 year old male with a history of chronic obstructive pulmonary disease (COPD), asthma, prior pulmonary embolism on apixaban, type 2 diabetes mellitus, pulmonary sarcoidosis, hyperlipidemia, hypertension, and coronary artery disease with two stents comes to the ER today with his spouse because of bilateral lower limb swelling fever, weakness with low blood pressures. Patient had gone to urgent care today and was referred to the ER. As per the spouse and patient at bedside he has had cellulitis and swelling of his legs for last few months but for last 2 days the legs have become more oozy and foul-smelling. He has had low blood pressures down to 70 systolics at home for last 3 days. In the ER patient was found to have a hypotension with systolic blood pressure down to 71 mmHg for which she was started on sepsis bolus. Examination patient's blood pressure was 90 systolic and has received 600 off his septic bolus complaining of back pain. Patient states he has had back pain for a long time and is to undergo surgery with orthopedic team as an outpatient by the end of this month. He takes Tylenol for pain at home. Review of Systems General: Reports: 10 or more systems reviewed and unremarkable except in HPI and below Const: Denies: fever(s), chills, body aches, change in appetite, change in weight, malaise, night sweats, diaphoresis, change in sleep pattern, daytime sleepiness or snoring Eyes: Denies: change in vision, blurry vision, photophobia, eye discomfort or eye discharge ENMT: Denies: throat pain, enlarged tonsils, hoarseness, mouth pain, oral sores, dry mouth, tinnitus, nasal congestion or post nasal drip Card: Denies: chest pain, palpitations, irregular heart rhythm, edema, swelling of feet/ankles, lightheadedness, syncope, pre-syncope, dyspnea on exertion, orthopnea, leg pain with exertion or acrocyanosis Resp: Denies: dyspnea, productive cough, non-productive cough, wheezing, stridor, pain on inspiration, change in phlegm color, hemoptysis or chest congestion GI: Denies: abdominal pain, nausea, vomiting, hematemesis, coffee ground emesis, dysphagia, heartburn, diarrhea, constipation, bloating, GI cramping, change in bowel habits, pain on defecation, hematochezia or melena : Denies: flank pain, difficulty urinating, dysuria, urinary frequency, urinary urgency, urinary hesitancy, urinary dribbling, difficulty starting urination, change in urine stream, nocturia or hematuria Musc: Denies: neck pain, back pain, extremity pain, joint pain, joint swelling, joint redness, joint stiffness or limited range of motion Neuro: Denies: headache(s), numbness in extremities, weakness in extremities, sensory changes, lack of coordination, difficulty walking, frequent falls, dizziness, vertigo, confusion, Slurred speech present, difficulty communicating thoughts or seizure-like activity Psych: Denies: anxiety, depression, mood swings, panic attacks, hopelessness or irritability Endo: Denies: polyuria, polydipsia, tired all the time, cold intolerance, excessive sweating, flushing or heat intolerance Joel/Lymph: Denies: easy bruising or easy bleeding All/Imm: Denies: tongue swelling, facial swelling or acute wheezing Medications/Allergies Home Medications ?Medication ?Instructions ?Recorded ?Confirmed ?Last Taken ?Type simvastatin 40 mg tablet 40 mg PO QPM #30 tabs 05/08/24 01/16/25 01/15/25 Rx nitroglycerin 0.4 mg sublingual 0.4 mg sublingual Q5M PRN chest 05/16/24 01/16/25 Unknown Rx tablet pain #30 tabs empagliflozin 10 mg tablet 10 mg PO DAILY #30 tabs 08/20/24 01/16/25 01/16/25 Rx (Jardiance) metoprolol succinate 25 mg 12.5 mg (1/2 x 25 mg) PO BID #60 08/20/24 01/16/25 01/16/25 Rx tablet,extended release 24 hr tabs aspirin 81 mg tablet 81 mg PO DAILY 10/01/24 01/16/25 01/16/25 History brimonidine 0.2 % eye drops 1 drp ophthalmic (eye) BID 12/04/24 01/16/25 01/16/25 History dorzolamide 2 % eye drops 1 drp ophthalmic (eye) BID 12/04/24 01/16/25 01/16/25 History imiquimod 5 % topical cream packet See Rx Instructions .Route .COMPLEX 12/04/24 01/16/25 12/04/24 History albuterol sulfate 90 mcg/actuation 2 puff inhalation Q6H PRN 12/06/24 01/16/25 Unknown Rx aerosol inhaler (Ventolin HFA) breathing #8.5 grams gabapentin 100 mg capsule 100 mg PO BID #60 caps 12/10/24 01/16/25 01/16/25 Rx apixaban 5 mg tablet (Eliquis) 5 mg PO BID #60 tabs 12/14/24 01/16/25 01/16/25 Rx Nebulizer with tubing and filter #1 ea 12/17/24 01/16/25 Unknown Rx fluticasone fur. 100 mcg-umeclid 1 inh inhalation DAILY #28 ea 12/17/24 01/16/25 01/16/25 Rx 62.5 mcg-vilant 25 mcg inhalat.powder (Trelegy Ellipta) buspirone 7.5 mg tablet 7.5 mg PO TID PRN Anxiety 12/18/24 01/16/25 Unknown History albuterol sulfate 2.5 mg/3 mL 2.5 mg (3 mL) inhalation Q4H PRN 12/20/24 01/16/25 Unknown Rx (0.083 %) solution for nebulization Wheezing #30 mL glucometer testing kit #1 12/21/24 01/16/25 Unknown Rx insulin aspart U-100 100 unit/mL See Rx Instructions .Route 12/21/24 01/16/25 01/16/25 Rx (3 mL) subcutaneous pen (Novolog .COMPLEX #15 mL FlexPen U-100 Insulin aspart) insulin glargine 100 unit/mL (3 15 unit (0.15 mL) SUBCUT QPM 30 12/21/24 01/16/25 Unknown Rx mL) subcutaneous pen (Basaglar days #15 mL KwikPen U-100 Insulin) furosemide 40 mg tablet 40 mg PO QAM PRN edema/heart 01/16/25 01/16/25 01/16/25 History losartan 50 mg tablet 50 mg PO DAILY blood pressure 01/16/25 01/16/25 Unknown History prednisone 20 mg tablet 20 mg PO DAILY 01/16/25 01/16/25 Unknown History sulfamethoxazole 800 1 tab PO .MON, WED, FRI 01/16/25 01/16/25 01/16/25 History mg-trimethoprim 160 mg tablet Allergies Allergy/AdvReac Type Severity Reaction Status Date / Time cat dander Allergy Mild ADR-Swelling Verified 01/16/25 14:14 of the Eye ibuprofen Allergy Unknown Unknown Verified 01/16/25 14:14 menthol Allergy Unknown Verified 01/16/25 14:14 ketorolac (From Toradol) AdvReac renal Verified 01/16/25 14:14 failure PFSH Acute PFSH: Medical History (Updated 01/16/25 @ 17:51 by Tonny Talamantes MD) Enrolled in chronic care management Depression Pulmonary embolism Type 2 diabetes mellitus without complication, without long-term current use of insulin 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 Left ureteral calculus 02/09/2023 [facility] Bilateral lower extremity edema Non-smoker COPD (chronic obstructive pulmonary disease) Pulmonary sarcoidosis Hyperlipidemia ASHD (arteriosclerotic heart disease) 2016 stents x2 HTN (hypertension) Surgical History History of eye surgery History of back surgery H/O bilateral cataract extraction S/P PTCA (percutaneous transluminal coronary angioplasty) S/P cholecystectomy S/P skin cancer resection Family History Brother CAD (coronary artery disease) valve replaced Mother Lung disease Denies family history of Diabetes Clotting disorder Dementia Chronic kidney disease (CKD) Suicide Anesthesia complication Bleeding disorder Cancer Stroke Social History Smoking and tobacco/nicotine status: never used tobacco/nicotine Second hand smoke exposure: No Alcohol intake: never Substance/Drug Use: never Vitals/I&O/Wt Last Vital Signs Temp 97.7 F 01/16/25 14:09 Pulse 100 01/16/25 16:26 BP 102/58 01/16/25 16:40 Pulse Ox 92 01/16/25 16:26 O2 Del Method Room Air 01/16/25 16:26 Weight last 48 hrs Weight 72.575 kg Physical Exam Narrative: General: In distress because of back pain, AO x 3, sick appearing HEENT: PERRLA, pupils bilaterally equal and reactive Chest: Bilateral bronchial breath sounds all lung cortez occasional rhonchi CVS: S1-S2 regular, no murmurs, no tachycardia, no gallops, no rubs Abdomen: Soft, obese, nontender, no organomegaly, bowel sounds present Neuro: No focal deficits, no facial deformity, AO x3, power 5/5 in all limbs Skin: OTHER: Data 01/16/25 14:40 01/16/25 14:40 A&P Assessment and plan 1. Severe sepsis: SIRS: Tachycardic, Febrile, Leukocytosis Source: Lower limb cellulitis End organ damage: MICHELLE on CKD Elevated lactic acid level Patient is getting full sepsis bolus of 30 mL/kg body weight. Continue NS at 75 cc/h after sepsis bolus. Check blood culture, urine culture, MRSA swab, trend procalcitonin, check urine bacterial antigen. Check ESR, CRP. Check bilateral lower limb CT with contrast to rule out underlying collection. Empirically start patient on IV vancomycin and meropenem. If MRSA swab negative will discontinue vancomycin. Dose antibiotics as per renal functions. Depending on the CT results will consult surgery and podiatry for further debridement if needed. Lower limb elevation. Keep mean artery pressure 65. If needed can start on Levophed. 2. Bilateral lower leg cellulitis: 3. Acute kidney injury: Most likely in setting of severe sepsis. Baseline creatinine normal. Currently 1.7. Associated with metabolic acidosis. IV fluids as above. Monitor renal functions daily. If renal functions continue to remain elevated we will plan for CT abdomen pelvis to rule out obstructive nephropathy. Strict input output charting. Daily weights. 4. High anion gap metabolic acidosis: 5. Elevated lactic acid level: 6. HTN (hypertension): Goal blood pressure less than 140/90 mmHg with mean over 65. Patient takes losartan, metoprolol at home. Hold off on antihypertensive for now. 7. Chronic diastolic heart failure: Last echocardiogram from April 2024 shows an EF of 50 to 55% grade 1 diastolic function. Currently euvolemic. Watch for fluid overload. 8. Pulmonary embolism: Takes Eliquis 5 mg twice daily at home. Switch to full dose Lovenox 1 mg/kg body weight daily as per creatinine clearance. 9. ASHD (arteriosclerotic heart disease): 10. Centrilobular emphysema: Oxygen supplementation keeping saturation over 90%. Pulmicort twice daily, DuoNeb every 6 hour. Not in exacerbation for now. Plan: Back pain: Chronic as per patient. Has been scheduled for outpatient surgery. Morphine 2 mg every 4 hours as needed. Kemmerer 5 mg 6 hours as needed. Type 2 diabetes mellitus: Check A1c. Sliding scale low-dose protocol. Depending on insulin requirement in next 24 hours will add Lantus. Patient takes Lantus 15 units daily at home. Full code Cardiac diet Protonix for PUD prophylaxis Full dose Lovenox was sufficient for PUD prophylaxis PDMP PDMP Reviewed: Not Reviewed Attestations Medical Necessity Statement*: Admission for more than 2 midnights for management of severe sepsis in setting of bilateral significant lower limb cellulitis, MICHELLE Critical Care Time: The high probability of a clinically significant, sudden or life threatening deterioration of the patient's [cardiac, ID, skin or pulmonary] system(s) required my full and direct attention, intervention and personal management. The critical care time is as shown. This time is in addition to time spent performing any reported procedures but includes the following: [x] Data and vital sign review and interpretation [x] Patient assessment, examination and intervention [x] Documentation [x] Medication orders and management Critical Care Time (min): 70 Coding Level of Care Code Critical Care >/= 30 minutes Critical care time (in minutes): 70 The high probability of a clinically significant, sudden or life threatening deterioration, as referenced in this documentation, required my full and direct attention, intervention and personal management. The critical care time shown is in addition to time spent performing any reported separately billable procedures and includes the following: [x] Data and vital sign review and interpretation [x] Patient assessment, examination and intervention [x] Medication orders and management [x] Patient/Family updates as able [x] Care Coordination and Documentation. Diagnoses Severe sepsis A41.9; R65.20 Bilateral lower leg cellulitis L03.116; L03.115 Acute kidney injury N17.9 High anion gap metabolic acidosis E87.29 Elevated lactic acid level R79.89 HTN (hypertension) I10 Chronic diastolic heart failure I50.32 Pulmonary embolism I26.99 ASHD (arteriosclerotic heart disease) I25.10 Centrilobular emphysema J43.2 COPD type: emphysema Emphysema type: centrilobular
--- NOTE | 2025-01-16 16:48 | CTR_ITS ---
PROCEDURE INFORMATION: Exam: CT Right Lower Extremity Without Contrast, Leg Exam date and time: 01/16/2025 9:39 PM Age: 64 years old Clinical indication: Pain; Lower leg; Bilateral; Additional info: Cellulitis TECHNIQUE: Imaging protocol: CT of the right lower extremity without contrast was performed. Exam focused on the lower leg. Radiation optimization: All CT scans at this facility use at least one of these dose optimization techniques: automated exposure control; mA and/or kV adjustment per patient size (includes targeted exams where dose is matched to clinical indication); or iterative reconstruction. COMPARISON: US soft tissue/extremity [id number] 06/27/2024 11:44 AM RADIATION DOSE METRICS: Total DLP (mGy-cm): 594.3 FINDINGS: Bones/joints: Small right knee joint effusion. Moderately severe narrowing medial joint space compartment. No fractures. No lytic bone lesion. Negative for osteolytic lesion. Soft tissues: Diffuse subcutaneous soft tissue edema and fluid. No focal organized peripherally enhancing abscess. Negative for gas. CT/CT lower leg RT w con [id number] IMPRESSION: 1. Nonspecific soft tissue edema. 2. No focal organized abscess. 3. Negative for osteomyelitis.
--- NOTE | 2025-01-16 16:48 | CTR_ITS ---
PROCEDURE INFORMATION: Exam: CT Left Lower Extremity With Contrast, Leg Exam date and time: 01/16/2025 9:39 PM Age: 64 years old Clinical indication: Pain; Lower leg; Bilateral; Additional info: Cellulitis , R/O abscess TECHNIQUE: Imaging protocol: CT of the left lower extremity with intravenous contrast was performed. Exam focused on the lower leg. Radiation optimization: All CT scans at this facility use at least one of these dose optimization techniques: automated exposure control; mA and/or kV adjustment per patient size (includes targeted exams where dose is matched to clinical indication); or iterative reconstruction. Contrast material: OMNI 350; Contrast volume: 100 ml; Contrast route: INTRAVENOUS (IV); COMPARISON: US soft tissue/extremity [id number] 06/27/2024 11:44 AM RADIATION DOSE METRICS: Total DLP (mGy-cm): 835 FINDINGS: Bones/joints: Unremarkable. No acute fracture or dislocation. No lytic lesion. No periosteal reaction. Soft tissues: Diffuse subcutaneous soft tissue edema and generalized Fluid in the tissues. Negative for peripherally enhancing organized soft tissue abscess. Negative for gas. CT/CT lower leg LT w con [id number] IMPRESSION: 1. Nonspecific general diffuse soft tissue edema. 2. Negative for focal abscess. 3. Negative for osteomyelitis.
[2025-01-16 17:02] LABS: Glucose Urine UA 3+ (Normal); Nitrate Urine Negative (Negative); Specific Gravity, Urine 1.029 (1.005-1.030)
[2025-01-16] MEDS: morphine 4 mg/mL SDV 1 mL 2 MG IVP ×3 (17:06→22:01)
[2025-01-16 17:08] LABS: Add Urine Microscopic? YES
--- NOTE | 2025-01-16 17:08 | PHA.VACGOAL ---
Vancomycin Goal - Goal Vancomycin Goal:: other - Therapy Current therapy:: Meropenem Day of therpy:: Day []of [] . Actual body weight (kg): 160 lb - Data Labs: WBC 19.36 10^3/uL (3.29-11.43) H 01/16/25 14:40 RBC 3.71 10^6/uL (3.85-5.65) L 01/16/25 14:40 Hgb 11.40 g/dL (11.27-16.99) 01/16/25 14:40 Hct 36.5 % (37-53) L 01/16/25 14:40 MCV 98.4 fl (82-101) 01/16/25 14:40 MCH 30.7 pg (27-33) 01/16/25 14:40 MCHC 31.2 g/dL (30-55) 01/16/25 14:40 RDW 16.7 % (12.1-15.1) H 01/16/25 14:40 Sodium 132 mmol/L (136-145) L 01/16/25 14:40 Potassium 3.7 mmol/L (3.5-5.1) 01/16/25 14:40 Chloride 93 mmol/L (98-107) L 01/16/25 14:40 Carbon Dioxide 17 mmol/L (22-29) L 01/16/25 14:40 Anion Gap 25.7 (5-19) H 01/16/25 14:40 BUN 37 mg/dL (8-23) H 01/16/25 14:40 Creatinine 1.7 mg/dL (0.7-1.2) H 01/16/25 14:40 GFR Calculation 41.0 mL/min (90-130) L 01/16/25 14:40 Last dialysis session:: N/A Treatment plan:: new consult Regimen:: NO DIAGNOSIS LISTED OF THIS TIME. WILL CONTINUE TO MONITOR AND DETERMINE APPROPRIATE TROUGH RANGE ONCE THIS INFORMATION IS KNOWN TO PHARMACY. LOADING DOSE OF 1000 MG GIVEN IN ER. SCHEDULED MAINTENANCE DOSE OF 500 MG Q12H TO START 01/17/25 AT 0430. WILL CONTINUE TO MONITOR DAILY AND PLAN TO OBTAIN TROUGH PRIOR TO 4TH DOSE.
[2025-01-16 17:29] LABS: UA Slide Review UA Slide Review Perf
[2025-01-16] MEDS: HYDROcodone-acetaminophen 5-325 mg Tablet 1 TAB PO (17:47)
[2025-01-16] MEDS: pantoprazole 40 mg SDV IVP (17:47)
[2025-01-16] MEDS: meropenem 1,000 mg SDV 1000 MG IVP (17:52)
--- NOTE | 2025-01-16 17:57 | CTR_ITS ---
PROCEDURE INFORMATION: Exam: CT Abdomen And Pelvis Without Contrast Exam date and time: 01/16/2025 9:31 PM Age: 64 years old Clinical indication: Abdominal pain; Prior surgery; Surgery date: 6+ months; Surgery type: Gallbladder, back; Additional info: Tank, h/o left uretral stone TECHNIQUE: Imaging protocol: Computed tomography of the abdomen and pelvis without contrast. Radiation optimization: All CT scans at this facility use at least one of these dose optimization techniques: automated exposure control; mA and/or kV adjustment per patient size (includes targeted exams where dose is matched to clinical indication); or iterative reconstruction. COMPARISON: CT abdomen pelvis con [id number] 12/04/2024 5:19 PM RADIATION DOSE METRICS: Total DLP (mGy-cm): 687.21 FINDINGS: Tubes, catheters and devices: Bladder catheter present unremarkable position. Liver: Normal. No mass. Gallbladder and biliary ducts: Cholecystectomy. Nondilated biliary system. Pancreas: Normal. No ductal dilation. Spleen: Normal. No splenomegaly. Adrenal glands: Normal. No mass. Kidneys and ureters: Mild to moderate bilateral renal cortical volume loss. Negative for acute perinephric inflammation. Negative for urolithiasis. Negative for hydroureteronephrosis. Stomach and bowel: Mild diverticulosis coli. Negative for bowel inflammatory changes. Negative for bowel obstruction. Negative for bowel perforation. Negative for pneumatosis intestinalis. Appendix: Normal appendix. Intraperitoneal space: Unremarkable. No free air. No significant fluid collection. Vasculature: Unremarkable. No abdominal aortic aneurysm. Lymph nodes: Unremarkable. No enlarged lymph nodes. Urinary bladder: Bladder decompressed and grossly unremarkable in appearance. Reproductive: Unremarkable as visualized. Bones/joints: Osteoporosis. Numerous old compression fractures throughout the included lower thoracic and the lumbar spine. There is increased vertebral body height loss involving the previous T8 fracture without retropulsion. The other compressed levels are unchanged in height loss. Prior vertebral augmentation of T10 noted. Included thoracic and lumbar spine alignment is anatomic. Negative for acute pelvic fracture. Soft tissues: Unremarkable. CT/CT abdomen pelvis con [id number] IMPRESSION: 1. Negative for acute abdominopelvic pathology. 2. Negative for renal obstruction.
[2025-01-16 18:00] LABS: Lactic Acid level (Lactate) 3.6 mmol/L (0.5-2.2)
[2025-01-16 18:25] LABS: Procalcitonin 28.89 ng/mL (0-0.5)
[2025-01-16 18:38] LABS: Thyroid Stimulating Hormone 1.92 uIU/mL (0.27-4.20)
--- NOTE | 2025-01-16 19:20 | ECG_ITS ---
[facility] Date: 2025-01-16 Pat Name: Partha Roe Department: Room: [facility] Gender: Male [employer]: : 1960 Requested By: Tonny Talamantes Order Number: [id number] Sherrell MD: Tunde Browne M.D. Measurements Intervals [place] Rate: 126 P: 68 ME: 130 QRS: 40 QRSD: 81 T: 71 QT: 401 QTc: 582 Interpretive Statements SINUS TACHYCARDIA NONSPECIFIC T-WAVE ABNORMALITY ABNORMAL RHYTHM ECG Compared to ECG 01/03/2025 22:28:14 T-wave abnormality now present Sinus rhythm no longer present Short ME interval no longer present Electronically Signed On 01-22-2025 19:52:28 CDT by Tunde Browne M.D. [email or web address] [id number]
[2025-01-16 19:26] LABS: Vitamin B12 1126 pg/mL (232-1245)
--- NOTE | 2025-01-16 22:15 | PC.NURSE ---
CT/Wheezing Multiple CT scans ordered stat prior to patient being present in ICU. Upon arrival to unit, patient short of breath with muscle accessory use and abdominal breathing; wheezing heard upon auscultation. BIPAP ordered, not yet in use. RT contacted for BIPAP. CT scans delayed for bipap and breathing treatment initiation. Dr. Story notified of wheezes as well as CT scan delays. No new orders received.
[2025-01-16] MEDS: norepinephrine 4 MG/250 ML BAG 15 MG IV (23:35)
[2025-01-17] VITALS (111 sets, daily range): BP systolic 73–137; BP diastolic 52–89; PULSE 112–134; RESP 14–29; TEMP 36.9–37.9; O2SAT 87–100
--- NOTE | 2025-01-17 | PC.NURSE ---
Pain Patient complaining of severe leg pain despite previous morphine administration. When discussing pain medications available, patient stated he did not want hydrocodone because it does not work. Dr. Story contacted and order received for a one time additional dose of 2 mg morphine IVP now. Morphine administered per JUN.
[2025-01-17] MEDS: morphine 4 mg/mL SDV 1 mL 2 MG IVP ×3 (00:09→09:43)
--- NOTE | 2025-01-17 00:10 | PC.NURSE ---
Hematuria Hematuria noted in patient's berger catheter. Dr. Story notified and at bedside; no new orders received.
[2025-01-17 02:34] LABS: MRSA PCR OZH (swab) NOT DETECTED (Negative)
[2025-01-17 04:54] LABS: Procalcitonin 9.42 ng/mL (0-0.5)
[2025-01-17 04:58] LABS: Alanine Aminotransferase 10 U/L (0-41); Albumin Level 2.6 g/dL (3.5-5.2); Alkaline Phosphatase 114 U/L (40-130); Aspartate Amino Transferase 14 U/L (0-40); Blood Urea Nitrogen 29 mg/dL (8-23); Calcium 8.6 mg/dL (8.5-10.5); Carbon Dioxide 13 mmol/L (22-29); Chloride 102 mmol/L (98-107); Creatinine Clr Calc Pharmacy 68.5728; Globulin 2.8 g/dL (1.3-4.6); Glucose 107 mg/dL (65-115); Magnesium 2.4 mg/dL (1.7-2.3); Osmolality Calculated 286 mOsm/kg (285-295); Sodium 135 mmol/L (136-145); Total Protein 5.4 g/dL (6.6-8.7)
[2025-01-17 04:59] LABS: Anion Gap 23.9 (5-19); Potassium 3.9 mmol/L (3.5-5.1)
[2025-01-17] MEDS: vancomycin 500 MG in sodium chloride 0.9% (plus) 100 ML 200 MG IV (05:25)
[2025-01-17] MEDS: meropenem 1,000 mg SDV 1000 MG IVP ×2 (05:31→18:33)
[2025-01-17] MEDS: oxyCODONE 5 mg IR Tab/Cap PO (11:26)
--- NOTE | 2025-01-17 13:02 | P.PN_ITS ---
Subjective 2 Subjective: Patient complaining of back pain. States slightly better than yesterday but continues to have pain. Has remained afebrile. 2 L of oxygen supplementation saturating more than 96%. Seen with spouse at bedside. Denies any nausea, vomiting. Currently on Levophed of 2. Heart rate of 120 bpm. Vitals/I&O/Wt Last Vital Signs Temp 99.0 F 01/17/25 08:25 Pulse 134 H 01/17/25 12:00 Resp 27 H 01/17/25 12:00 BP 122/80 01/17/25 12:00 Pulse Ox 100 01/17/25 12:00 O2 Del Method Nasal Cannula 01/17/25 12:00 O2 Flow Rate 2 01/17/25 12:00 FiO2 21 01/17/25 08:40 01/16/25 01/17/25 01/17/25 22:59 06:59 14:59 Intake Total 2477.25 / 2477.25 51.375 / 2528.625 1389.5 / 1389.5 Output Total 315 / 315 425 / 740 Balance 2162.25 / 2162.25 -373.625 / 6668.009 5771.5 / 1389.5 Weight last 48 hrs Weight 72 kg Weight 71.5 kg Weight 72.575 kg Physical Exam 2 Narrative: General: In distress because of back pain, AO x 3, sick appearing HEENT: PERRLA, pupils bilaterally equal and reactive Chest: Bilateral bronchial breath sounds all lung cortez occasional rhonchi CVS: S1-S2 regular, no murmurs, no tachycardia, no gallops, no rubs Abdomen: Soft, obese, nontender, no organomegaly, bowel sounds present Neuro: No focal deficits, no facial deformity, AO x3, power 5/5 in all limbs Skin: OTHER: Urinary Catheter Management: Plaza: Cath Placed During This Visit: no Reason for Continuing Indwelling Catheter: Accurate Measurement of Urinary Output in Critically Ill Patients Data 01/16/25 14:40 01/17/25 03:58 Micro: Microbiology 01/16/25 16:30 Bacterial Antigens - Final Urine Kidney 01/16/25 16:30 Urine Culture - Preliminary Urine,Clean Catch Gram Negative Rods 01/16/25 16:20 Blood Culture - Preliminary Blood SPECIMEN COLLECTED 01/16/25 16:21 Blood Culture - Preliminary Blood SPECIMEN COLLECTED A&P Assessment and plan 1. Severe sepsis: SIRS: Tachycardic, Febrile, Leukocytosis Source: Lower limb cellulitis End organ damage: MICHELLE on CKD Elevated lactic acid level Received full sepsis bolus for 30 mL/kg body weight. Repeat cheetah exam shows patient being fluid responsive. Getting 1 more liter of fluid bolus. Continue NS at 75 cc/h after sepsis bolus. Maintain mean artery pressure 65. Wean Levophed accordingly. Follow-up blood culture, urine culture, negative MRSA swab, appreciate trend procalcitonin, negative urine bacterial antigen. Elevated ESR, CRP. Appreciate bilateral lower limb CT scan negative for concern for collection or osteomyelitis. Continue with IV vancomycin and meropenem. Renally dosed. 2. Bilateral lower leg cellulitis: 3. Acute kidney injury: Most likely in setting of severe sepsis. Baseline creatinine normal. Currently resolved. Associated with metabolic acidosis. Continue with IV fluids as above. Monitor renal functions daily. Strict input output charting. Daily weights. 4. High anion gap metabolic acidosis: 5. Elevated lactic acid level: 6. Primary hypertension: Goal blood pressure less than 140/90 mmHg with mean over 65. Patient takes losartan, metoprolol at home. Hold off on antihypertensive for now. Currently on Levophed for shock 7. Chronic diastolic heart failure: Last echocardiogram from April 2024 shows an EF of 50 to 55% grade 1 diastolic function. Currently euvolemic. Watch for fluid overload. 8. Pulmonary embolism: Takes Eliquis 5 mg twice daily at home. Continue with full dose Lovenox 1 mg/kg body weight twice daily as per creatinine clearance. 9. ASHD (arteriosclerotic heart disease): 10. Centrilobular emphysema: Oxygen supplementation keeping saturation over 90%. Pulmicort twice daily, DuoNeb every 6 hour. Will add Solu-Medrol 40 mg Q6 hourly for now. Plan: Back pain: Chronic as per patient. Has been scheduled for outpatient surgery. Appreciate recent lumbar MRI. Once patient improves if he continues to have significant pain can involve orthopedic surgery to see if they would like to proceed with the OR during current admission. Physical therapy once blood pressure stable Morphine 2 mg every 4 hours as needed. Patient reporting [place] never helps him. Will trial with oxycodone 5 mg one-time and if it helps we will start on Percocet 5 mg 6 hours as needed along with oxycodone ER 10 mg twice daily. Type 2 diabetes mellitus: A1c of 7 Sliding scale low-dose protocol. Depending on insulin requirement in next 24 hours will add Lantus. Patient takes Lantus 15 units daily at home. Full code Carb consistent cardiac diet Protonix for PUD prophylaxis Full dose Lovenox was sufficient for PUD prophylaxis PDMP PDMP Reviewed: Not Reviewed Attestations 2 Medical Necessity Statement*: Requires further hospitalization for management of septic shock in setting of bilateral cellulitis, UTI Critical Care Time: The high probability of a clinically significant, sudden or life threatening deterioration of the patient's [cardiac, pulmonary, ID] system(s) required my full and direct attention, intervention and personal management. The critical care time is as shown. This time is in addition to time spent performing any reported procedures but includes the following: [x] Data and vital sign review and interpretation [x] Patient assessment, examination and intervention [x] Documentation [x] Medication orders and management Critical Care Time (min): 70 Coding Level of Care Code Critical Care >/= 30 minutes Critical care time (in minutes): 70 The high probability of a clinically significant, sudden or life threatening deterioration, as referenced in this documentation, required my full and direct attention, intervention and personal management. The critical care time shown is in addition to time spent performing any reported separately billable procedures and includes the following: [x] Data and vital sign review and interpretation [x ] Patient assessment, examination and intervention [x] Medication orders and management [x] Patient/Family updates as able [x] Care Coordination and Documentation. Diagnoses Severe sepsis A41.9; R65.20 Bilateral lower leg cellulitis L03.116; L03.115 Acute kidney injury N17.9 High anion gap metabolic acidosis E87.29 Elevated lactic acid level R79.89 Primary hypertension I10 Hypertension type: primary hypertension Chronic diastolic heart failure I50.32 Pulmonary embolism I26.99 ASHD (arteriosclerotic heart disease) I25.10 Centrilobular emphysema J43.2 COPD type: emphysema Emphysema type: centrilobular
[2025-01-17 13:29] LABS: Hematocrit 31.5 % (37-53); Hemoglobin 9.80 g/dL (11.27-16.99); Mean Corpuscular HGB Conc 31.1 g/dL (30-55); Mean Corpuscular Hemoglobin 31.1 pg (27-33); Mean Corpuscular Volume 100.0 fl (82-101); Nucleated Red Blood Cells % 0 %; Platelet Count 355 10^3/cmm (157-399); Red Blood Count 3.15 10^6/uL (3.85-5.65); White Blood Count 19.84 10^3/uL (3.29-11.43)
[2025-01-17] MEDS: methylPREDNISolone sod succ 40 mg/mL INJ IVP ×2 (13:36→18:33)
--- NOTE | 2025-01-17 14:37 | ECG_ITS ---
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 Measurements Intervals [place] Rate: 131 P: 38 OR: 120 QRS: 14 QRSD: 86 T: 89 QT: 377 QTc: 557 Interpretive Statements SINUS TACHYCARDIA NONSPECIFIC T-WAVE ABNORMALITY Compared to ECG 01/16/2025 19:20:07 No significant changes Electronically Signed On 01-19-2025 12:03:00 CDT by Shaggy Arrieta M.D. [email or web address]
[2025-01-17] MEDS: oxyCODONE 10 mg ER (12 HR) Tablet PO (16:34)
[2025-01-17] MEDS: pantoprazole 40 mg SDV IVP (16:34)
--- NOTE | 2025-01-17 16:39 | CTR_ITS ---
PROCEDURE INFORMATION: Exam: CTA Chest With Contrast Exam date and time: 01/17/2025 6:06 PM Age: 65 years old Clinical indication: Other: Copd, heavy breathing, pe; Copd, pe, PT breathing is heavy TECHNIQUE: Imaging protocol: Computed tomographic angiography of the chest with contrast. Exam focused on the arteries. 3D rendering (Not supervised by radiologist): MIP and/or 3D reconstructed images were created by the technologist. Radiation optimization: All CT scans at this facility use at least one of these dose optimization techniques: automated exposure control; mA and/or kV adjustment per patient size (includes targeted exams where dose is matched to clinical indication); or iterative reconstruction. Contrast material: [id number]; Contrast volume: 100 ml; Contrast route: INTRAVENOUS (IV); COMPARISON: CT angio chest PE protcl [id number] 12/04/2024 3:13 PM RADIATION DOSE METRICS: Total DLP (mGy-cm): 506.03 FINDINGS: Pulmonary arteries: No pulmonary embolism. Aorta: Mild calcified atherosclerotic changes are seen in the thoracic aorta. Lungs: Peribronchial thickening involving bilateral lower lobes and lingular segment. There is mucous plugging in bilateral lower lobes. Bibasilar infiltrates at the dependent portion of the chest. Pleural spaces: Unremarkable. No pneumothorax. No pleural effusion. Heart: Unremarkable. No cardiomegaly. No pericardial effusion. Coronary arteries: Coronary calcifications are seen. Lymph nodes: Stable shotty subcarinal lymph node 1.2 x 1.1 cm. Liver: Hepatic steatosis. Bones/joints: Bilateral chronic rib fractures. Multiple chronic thoracic compression deformities are seen. Soft tissues: Unremarkable. CT/CT angio chest PE protcl [id number] IMPRESSION: 1. No pulmonary embolism. 2. Bibasilar infiltrates at the dependent portion of the chest. Pneumonic process can not be excluded. Imaging follow-up until resolution is advised. 3. Peribronchial thickening involving bilateral lower lobes and lingular segment. Bronchiolitis can not be excluded. Mucous plugging in bilateral lower lobes. 4. Coronary calcifications. 5. Mild calcified atherosclerotic changes are seen in the thoracic aorta. 6. Hepatic steatosis.
[2025-01-17 16:58] LABS: ABG PCO2 41.9 mmHg (35-45); ABG PH Result 7.23 (7.35-7.45); Alveolar-Arterial Oxygen Gradi 3.1 mmHg (5-10); Arterial Blood Gas Hematocrit 30.9 % (42-52); Blood Gas Allen Test Pos; Blood Gas LPM 2.0 %; Blood Gas Operator Identificat CAK; Blood Gas Sample Site Radial, left; Blood Gas Sample Type Arterial; Carboxyhemoglobin 1.1 %THgb (0.4-20.1); Glucose Level-ABG 167.0 mg/dL (70-115); HCO3 ABG 17.4 mmol/L (22-26); Ionized Calcium Level - ABG 1.3 mmol/L (1.1-1.4); Methemoglobin 0.9 % (0.4-1.5); Oxygen Saturation ABG 99.1; PO2 ABG 122.0 mmHg (80.0-100.0); PO2 FiO2 Ratio Arterial Blood 435; Potassium Level - ABG 3.9 mmol/L (3.5-5.0); Sodium Level - ABG 137.0 mmol/L (131-143)
[2025-01-17] MEDS: sodium bicarbonate 100 MEQ in dextrose 5% 250 ML 700 MEQ IV (17:18)
[2025-01-17 17:47] LABS: Alanine Aminotransferase 9 U/L (0-41); Albumin Level 3.0 g/dL (3.5-5.2); Alkaline Phosphatase 105 U/L (40-130); Anion Gap 18.1 (5-19); Aspartate Amino Transferase 10 U/L (0-40); Blood Urea Nitrogen 20 mg/dL (8-23); Calcium 8.3 mg/dL (8.5-10.5); Carbon Dioxide 17 mmol/L (22-29); Chloride 108 mmol/L (98-107); Creatinine Clr Calc Pharmacy 76.4296; Globulin 2.4 g/dL (1.3-4.6); Glucose 162 mg/dL (65-115); Osmolality Calculated 294 mOsm/kg (285-295); Potassium 4.1 mmol/L (3.5-5.1); Sodium 139 mmol/L (136-145); Total Protein 5.4 g/dL (6.6-8.7)
[2025-01-17 17:49] LABS: Lactic Sepsis W/Reflex 1.1 mmol/L (0.5-2.2)
[2025-01-17 17:51] LABS: Acetaminophen < 5.0 ug/mL (10-30)
[2025-01-17] MEDS: iohexol 350 mg/mL 500 mL Btl (per mL) IV (18:18)
--- NOTE | 2025-01-17 20:13 | PC.NURSE ---
Albumin, Metoprolol Cheetah assessment requested by Dr. Talamantes. Assessment attempted three times with inconclusive results despite troubleshooting. Dr. Talamantes notified; orders received for albumin 25%, 25 gm Q8H IV scheduled and to administer 12.5 mg metoprolol PO once if levophed paused for 2 or more hours.
[2025-01-17] MEDS: albumin 25 G/100 ML BAG 60 G IV (21:10)
--- NOTE | 2025-01-17 21:25 | PM.CONSULT ---
Providers/Reason For Consult Consulting Physician/Specialty*: Dr. Jacinto Freed Reason for Consult*: Acute respiratory failure Attending Physician: Tonny Talamantes MD Primary Care Provider: Natalia Alvarado NP History of Present Illness History of Present Illness Partha Roe is a 65 year old male COPD, sarcoidosis diagnosed in 2018, biopsy-proven on 20 mg of prednisone since then attempting to wean off gets admitted to the hospital with worsening shortness of breath was placed on BiPAP and I was consulted for further management Patient was gradually weaned off of prednisone. CT scan done recently does not have any evidence of any lung nodules or evidence of sarcoidosis. He was on albuterol and Trelegy for his COPD. Outpatient labs showed normal alpha-1 antitrypsin levels, TERRA and ESR levels are normal This admission patient comes to the ER with fever weakness and low blood pressure. Patient had had leg cellulitis for the last 2 days becoming woozy and foul-smelling. He was found to be in septic shock and admitted to the hospital. Fluid bolus given. Empirically started on IV IV vancomycin and meropenem. Creatinine was found to be elevated at 1.7. Patient was also treated for COPD Exacerbation with Pulmicort twice daily and DuoNebs every 6 hours Labs were consistent with white count of 19. ABG shows a pH of 7.23, pCO2 of 41 we will start her on BiPAP and tolerating it well. CT chest showed no PE and some bibasilar infiltrates in the dependent portion of the chest possible pneumonia mucous plugging bilateral lower lobes. Medications/Allergies Home Medications ?Medication ?Instructions ?Recorded ?Confirmed ?Last Taken ?Type simvastatin 40 mg tablet 40 mg PO QPM #30 tabs 05/08/24 01/16/25 01/15/25 Rx nitroglycerin 0.4 mg sublingual 0.4 mg sublingual Q5M PRN chest 05/16/24 01/16/25 Unknown Rx tablet pain #30 tabs empagliflozin 10 mg tablet 10 mg PO DAILY #30 tabs 08/20/24 01/16/25 01/16/25 Rx (Jardiance) metoprolol succinate 25 mg 12.5 mg (1/2 x 25 mg) PO BID #60 08/20/24 01/16/25 01/16/25 Rx tablet,extended release 24 hr tabs aspirin 81 mg tablet 81 mg PO DAILY 10/01/24 01/16/25 01/16/25 History brimonidine 0.2 % eye drops 1 drp ophthalmic (eye) BID 12/04/24 01/16/25 01/16/25 History dorzolamide 2 % eye drops 1 drp ophthalmic (eye) BID 12/04/24 01/16/25 01/16/25 History imiquimod 5 % topical cream packet See Rx Instructions .Route .COMPLEX 12/04/24 01/16/25 12/04/24 History albuterol sulfate 90 mcg/actuation 2 puff inhalation Q6H PRN 12/06/24 01/16/25 Unknown Rx aerosol inhaler (Ventolin HFA) breathing #8.5 grams gabapentin 100 mg capsule 100 mg PO BID #60 caps 12/10/24 01/16/25 01/16/25 Rx apixaban 5 mg tablet (Eliquis) 5 mg PO BID #60 tabs 12/14/24 01/16/25 01/16/25 Rx Nebulizer with tubing and filter #1 ea 12/17/24 01/16/25 Unknown Rx fluticasone fur. 100 mcg-umeclid 1 inh inhalation DAILY #28 ea 12/17/24 01/16/25 01/16/25 Rx 62.5 mcg-vilant 25 mcg inhalat.powder (Trelegy Ellipta) buspirone 7.5 mg tablet 7.5 mg PO TID PRN Anxiety 12/18/24 01/16/25 Unknown History albuterol sulfate 2.5 mg/3 mL 2.5 mg (3 mL) inhalation Q4H PRN 12/20/24 01/16/25 Unknown Rx (0.083 %) solution for nebulization Wheezing #30 mL glucometer testing kit #1 ea 12/21/24 01/16/25 Unknown Rx insulin aspart U-100 100 unit/mL See Rx Instructions .Route 12/21/24 01/16/25 01/16/25 Rx (3 mL) subcutaneous pen (Novolog .COMPLEX #15 mL FlexPen U-100 Insulin aspart) insulin glargine 100 unit/mL (3 15 unit (0.15 mL) SUBCUT QPM 30 12/21/24 01/16/25 Unknown Rx mL) subcutaneous pen (Basaglar days #15 mL KwikPen U-100 Insulin) furosemide 40 mg tablet 40 mg PO QAM PRN edema/heart 01/16/25 01/16/25 01/16/25 History losartan 50 mg tablet 50 mg PO DAILY blood pressure 01/16/25 01/16/25 Unknown History prednisone 20 mg tablet 20 mg PO DAILY 01/16/25 01/16/25 Unknown History sulfamethoxazole 800 1 tab PO .MON, WED, FRI 01/16/25 01/16/25 01/16/25 History mg-trimethoprim 160 mg tablet Allergies Allergy/AdvReac Type Severity Reaction Status Date / Time cat dander Allergy Mild ADR-Swelling Verified 01/16/25 14:14 of the Eye ibuprofen Allergy Unknown Unknown Verified 01/16/25 14:14 menthol Allergy Unknown Verified 01/16/25 14:14 ketorolac (From Toradol) AdvReac renal Verified 01/16/25 14:14 failure Current Medications Generic Name Dose Route Start Last Admin Trade Name Freq PRN Reason Stop Dose Admin Aspirin 81 mg 01/17/25 05:00 01/17/25 05:31 Aspirin 81 Mg Ec Tablet PO 81 mg DAILY GENA Administration Budesonide 0.5 mg 01/16/25 20:00 01/17/25 20:08 Budesonide 0.5 Mg/2 Ml Neb INHALATION 0.5 mg BID.RESPIRATORY GENA Administration Docusate Sodium 100 mg 01/16/25 18:42 01/17/25 16:33 Docusate Sodium 100 Mg Capsule PO 100 mg BID GENA Administration Enoxaparin Sodium 70 mg 01/17/25 10:00 01/17/25 10:47 Enoxaparin 80 Mg/0.8 Ml Syringe SUBCUT 70 mg Q12H GENA Administration Gabapentin 100 mg 01/16/25 18:42 01/17/25 16:33 Gabapentin 100 Mg Capsule PO 100 mg BID GENA Administration Norepinephrine Bitartrate 4 mg in 250 mls @ 0 mls/hr 01/16/25 17:00 01/17/25 19:30 Levophed IV 0 mcg/min .Q0M GENA 0 mls/hr Protocol Titration Per Protocol Sodium Chloride 1,000 mls @ 75 mls/hr 01/16/25 18:42 01/17/25 07:59 Sodium Chloride 0.9% IV 75 mls/hr .[id number] GENA Administration Albumin Human 25 g in 100 mls @ 60 mls/hr 01/17/25 20:15 01/17/25 21:10 Albumin IV 60 mls/hr Q8H GENA Administration Vancomycin HCl 750 mg/ Sodium 250 mls @ 250 mls/hr 01/17/25 20:30 01/17/25 21:09 Chloride IV 250 mls/hr Q12H GENA Administration Insulin Human Lispro 0 unit 01/16/25 18:42 01/17/25 18:33 Insulin Lispro 100 Unit/1 Ml SUBCUT 2 unit WM&BEDTIME GENA Administration Protocol Ipratropium [place] 0.5 mg 01/17/25 20:00 01/17/25 20:08 Ipratropium 0.5 Mg/2.5 Ml Neb INHALATION 0.5 mg Q6H.RESP GENA Administration Levalbuterol HCl 0.63 mg 01/17/25 20:00 01/17/25 20:08 Levalbuterol 0.63 Mg/3 Ml Neb INHALATION 0.63 mg Q6H.RESP GENA Administration Meropenem 1,000 mg 01/17/25 06:00 01/17/25 18:33 Meropenem 1,000 Mg Sdv IVP 1,000 mg Q12H GENA Administration Protocol Methylprednisolone Sodium Succinate 40 mg 01/17/25 13:15 01/17/25 18:33 Methylprednisolone Sod Succ 40 Mg/Ml Inj IVP 40 mg Q6H GENA Administration Morphine Sulfate 2 mg 01/16/25 18:42 01/17/25 09:43 Morphine 4 Mg/Ml Sdv 1 Ml IVP 2 mg Q4H PRN Administration SEVERE PAIN Pantoprazole Sodium 40 mg 01/16/25 17:00 01/17/25 16:34 Pantoprazole 40 Mg Sdv IVP 40 mg Q24H GENA Administration PFSH Acute PFSH: Medical History (Updated 01/16/25 @ 18:14 by Schuyler Echevarria DO) Enrolled in chronic care management Depression Pulmonary embolism Type 2 diabetes mellitus without complication, without long-term current use of insulin 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 Left ureteral calculus 02/09/2023 [facility] Bilateral lower extremity edema Non-smoker COPD (chronic obstructive pulmonary disease) Pulmonary sarcoidosis Hyperlipidemia ASHD (arteriosclerotic heart disease) 2016 stents x2 HTN (hypertension) Surgical History History of eye surgery History of back surgery H/O bilateral cataract extraction S/P PTCA (percutaneous transluminal coronary angioplasty) S/P cholecystectomy S/P skin cancer resection Family History Brother CAD (coronary artery disease) valve replaced Mother Lung disease Denies family history of Diabetes Clotting disorder Dementia Chronic kidney disease (CKD) Suicide Anesthesia complication Bleeding disorder Cancer Stroke Social History Smoking and tobacco/nicotine status: never used tobacco/nicotine Second hand smoke exposure: No Alcohol intake: never Substance/Drug Use: never Vitals/I&O/Wt Last Vital Signs Temp 99.9 F H 01/17/25 18:30 Pulse 124 H 01/17/25 20:32 Resp 16 01/17/25 20:08 BP 105/77 01/17/25 18:30 Pulse Ox 94 01/17/25 20:32 O2 Del Method Nasal Cannula 01/17/25 20:08 O2 Flow Rate 2 01/17/25 20:08 FiO2 21 01/17/25 20:32 01/17/25 01/17/25 01/17/25 06:59 14:59 22:59 Intake Total 51.375 / 2528.625 2389.5 / 2389.5 455 / 2844.5 Output Total 425 / 740 950 / 950 Balance -373.625 / 8056.362 5007.5 / 2389.5 -495 / 1894.5 Weight last 48 hrs Weight 158 lb 11.725 oz Weight 157 lb 10.088 oz Weight 160 lb Physical Exam Narrative: per RN General: Obese laying in bed on BiPAP HEENT: conj clear, EOMI, PERRL Neck: supple Pulmonary: C moderately rhonchorous breath sounds bilaterally Cardiovascular: rrr, nl s1s2, no mrg Abdomen: soft, nt, nd, no r/g, Extremities: pulses +, Skin: Bilateral lower legs cellulitis noted Neurologic: grossly intact Agree with above exam Urinary Catheter Management: Plaza: Cath Placed During This Visit: no Reason for Continuing Indwelling Catheter: Accurate Measurement of Urinary Output in Critically Ill Patients Data 01/17/25 13:20 01/17/25 17:05 Micro: Microbiology 01/16/25 16:20 Blood Culture - Preliminary Blood NEGATIVE TO DATE 01/16/25 16:21 Blood Culture - Preliminary Blood NEGATIVE TO DATE 01/16/25 16:30 Bacterial Antigens - Final Urine Kidney 01/16/25 16:30 Urine Culture - Preliminary Urine,Clean Catch Gram Negative Rods A&P Assessment and plan 1. COPD (chronic obstructive pulmonary disease): Plan: # Septic shock-most likely due to bilateral lower extremity cellulitis as well as pneumonia probable -Patient's lower extremities are most likely the source of his sepsis although pneumonia is a possibility - Endorgan damage is renal as well as hemodynamic collapse - Continue broad-spectrum antibiotics with vancomycin and meropenem - Fluid bolus has been given already currently running at NS 75 mL/h. - Wean off levo as tolerated - Labs reviewed-WBC count elevated including procalcitonin and ESR # Bilateral lower leg extremity cellulitis Plan as above, wound dressing changes daily # Acute on chronic hypercapnic/hypoxic respiratory failure Continue DuoNebs along with Pulmicort, Brovana added -Continue steroids # Acute COPD exacerbation -Continue bronchodilators, steroids -Wean off BiPAP as tolerated # Probable bilateral pneumonia -CT scan reviewed did not show any PE but did show mucous plugging in the bilateral lower lobes suggestive of pneumonia close to the diaphragm -Antibiotics as above- -Urine growing gram-negative rods but may not be true UTI recommend changing catheter and checking another UA. All others NGTD. Staph epi in 1 out of 2 blood cultures most likely contaminant # Mucous plugging -Will prescribe Acapella # Obesity # MICHELLE -Improving # Acute lactic acidosis -Improving # Hypoalbuminemia The high probability of a clinically significant, sudden or life threatening deterioration of the patient's [Respiratory, cardiac and renal] system(s) required my full and direct attention, intervention and personal management. The critical care time is as shown. This time is in addition to time spent performing any reported procedures but includes the following: [x] Data and vital sign review and interpretation [x] Patient assessment, examination and intervention [x] Documentation [x] Medication orders and management Critical Care Time (min): 35 Telemedicine Consent Patient seen today via Telemedicine by agreement and consent of patient.? Telemedicine technology used during the visit includes audio and, as available, review of images.? The patient encounter is appropriate and reasonable under the circumstances given the patient?s particular presentation at this time.? The patient has been advised of the potential risks and limitations of this mode of treatment (including but not limited to the absence of in-person examination) and has agreed to be treated in a remote fashion in spite of them.? Any, and all, of the patient?s/patient?s family?s questions on this issue have been answered and I have made no promises or guarantees to the patient. The patient has also been advised to contact this office for worsening conditions or problems, and seek emergency medical treatment and/or call 911 if the patient deems either necessary PDMP PDMP Reviewed: Not Reviewed Coding Level of Care Code Critical Care >/= 30 minutes Diagnoses COPD (chronic obstructive pulmonary disease) J44.9
[2025-01-18] VITALS (73 sets, daily range): BP systolic 95–157; BP diastolic 57–99; PULSE 81–132; RESP 13–38; TEMP 36.2–36.4; O2SAT 80–100
[2025-01-18] MEDS: methylPREDNISolone sod succ 40 mg/mL INJ IVP ×4 (00:27→19:56)
[2025-01-18] MEDS: albumin 25 G/100 ML BAG 60 G IV ×3 (04:20→19:56)
[2025-01-18] MEDS: oxyCODONE-APAP 5-325 mg Tablet 1 TAB PO ×2 (04:40→18:09)
[2025-01-18] MEDS: meropenem 1,000 mg SDV 1000 MG IVP ×2 (06:01→17:40)
[2025-01-18 06:49] LABS: Hematocrit 24.6 % (37-53); Hemoglobin 7.50 g/dL (11.27-16.99); Mean Corpuscular HGB Conc 30.5 g/dL (30-55); Mean Corpuscular Hemoglobin 31.0 pg (27-33); Mean Corpuscular Volume 101.7 fl (82-101); Nucleated Red Blood Cells % 0 %; Platelet Count 202 10^3/cmm (157-399); Red Blood Count 2.42 10^6/uL (3.85-5.65); White Blood Count 8.78 10^3/uL (3.29-11.43)
[2025-01-18 07:07] LABS: Alanine Aminotransferase 7 U/L (0-41); Albumin Level 3.3 g/dL (3.5-5.2); Alkaline Phosphatase 78 U/L (40-130); Anion Gap 19.1 (5-19); Aspartate Amino Transferase 10 U/L (0-40); Blood Urea Nitrogen 18 mg/dL (8-23); Calcium 8.5 mg/dL (8.5-10.5); Carbon Dioxide 18 mmol/L (22-29); Chloride 107 mmol/L (98-107); Creatinine Clr Calc Pharmacy 78.3309; Globulin 2.0 g/dL (1.3-4.6); Glucose 154 mg/dL (65-115); Magnesium 2.0 mg/dL (1.7-2.3); Osmolality Calculated 295 mOsm/kg (285-295); Potassium 4.1 mmol/L (3.5-5.1); Sodium 140 mmol/L (136-145); Total Protein 5.3 g/dL (6.6-8.7)
--- NOTE | 2025-01-18 08:40 | PM.CONSULT ---
Providers/Reason For Consult Consulting Physician/Specialty*: Dr. Selvin Noel, George.P.M./podiatry Reason for Consult*: Bilateral lower extremity cellulitis Attending Physician: Tonny Talamantes MD Primary Care Provider: Natalia Alvarado NP History of Present Illness History of Present Illness Partha Roe is a 65 year old male currently admitted to ICU for sepsis with likely source being bilateral lower extremity cellulitis. Podiatry was consulted to evaluate and provide treatment recommendations. Review of Systems General: Reports: 10 or more systems reviewed and unremarkable except in HPI and below Const: Denies: fever(s), chills, body aches or change in appetite Eyes: Denies: change in vision or blurry vision Card: Denies: chest pain, palpitations or irregular heart rhythm Resp: Denies: dyspnea GI: Denies: abdominal pain, nausea, vomiting or diarrhea Musc: Reports: joint stiffness Skin/Breast: Reports: non-healing lesions and lesions Neuro: Reports: numbness in extremities Medications/Allergies Home Medications ?Medication ?Instructions ?Recorded ?Confirmed ?Last Taken ?Type simvastatin 40 mg tablet 40 mg PO QPM #30 tabs 05/08/24 01/16/25 01/15/25 Rx nitroglycerin 0.4 mg sublingual 0.4 mg sublingual Q5M PRN chest 05/16/24 01/16/25 Unknown Rx tablet pain #30 tabs empagliflozin 10 mg tablet 10 mg PO DAILY #30 tabs 08/20/24 01/16/25 01/16/25 Rx (Jardiance) metoprolol succinate 25 mg 12.5 mg (1/2 x 25 mg) PO BID #60 08/20/24 01/16/25 01/16/25 Rx tablet,extended release 24 hr tabs aspirin 81 mg tablet 81 mg PO DAILY 10/01/24 01/16/25 01/16/25 History brimonidine 0.2 % eye drops 1 drp ophthalmic (eye) BID 12/04/24 01/16/25 01/16/25 History dorzolamide 2 % eye drops 1 drp ophthalmic (eye) BID 12/04/24 01/16/25 01/16/25 History imiquimod 5 % topical cream packet See Rx Instructions .Route .COMPLEX 12/04/24 01/16/25 12/04/24 History albuterol sulfate 90 mcg/actuation 2 puff inhalation Q6H PRN 12/06/24 01/16/25 Unknown Rx aerosol inhaler (Ventolin HFA) breathing #8.5 grams gabapentin 100 mg capsule 100 mg PO BID #60 caps 12/10/24 01/16/25 01/16/25 Rx apixaban 5 mg tablet (Eliquis) 5 mg PO BID #60 tabs 12/14/24 01/16/25 01/16/25 Rx Nebulizer with tubing and filter #1 ea 12/17/24 01/16/25 Unknown Rx fluticasone fur. 100 mcg-umeclid 1 inh inhalation DAILY #28 ea 12/17/24 01/16/25 01/16/25 Rx 62.5 mcg-vilant 25 mcg inhalat.powder (Trelegy Ellipta) buspirone 7.5 mg tablet 7.5 mg PO TID PRN Anxiety 12/18/24 01/16/25 Unknown History albuterol sulfate 2.5 mg/3 mL 2.5 mg (3 mL) inhalation Q4H PRN 12/20/24 01/16/25 Unknown Rx (0.083 %) solution for nebulization Wheezing #30 mL glucometer testing kit #1 ea 12/21/24 01/16/25 Unknown Rx insulin aspart U-100 100 unit/mL See Rx Instructions .Route 12/21/24 01/16/25 01/16/25 Rx (3 mL) subcutaneous pen (Novolog .COMPLEX #15 mL FlexPen U-100 Insulin aspart) insulin glargine 100 unit/mL (3 15 unit (0.15 mL) SUBCUT QPM 30 12/21/24 01/16/25 Unknown Rx mL) subcutaneous pen (Basaglar days #15 mL KwikPen U-100 Insulin) furosemide 40 mg tablet 40 mg PO QAM PRN edema/heart 01/16/25 01/16/25 01/16/25 History losartan 50 mg tablet 50 mg PO DAILY blood pressure 01/16/25 01/16/25 Unknown History prednisone 20 mg tablet 20 mg PO DAILY 01/16/25 01/16/25 Unknown History sulfamethoxazole 800 1 tab PO .MON, WED, FRI 01/16/25 01/16/25 01/16/25 History mg-trimethoprim 160 mg tablet Allergies Allergy/AdvReac Type Severity Reaction Status Date / Time cat dander Allergy Mild ADR-Swelling Verified 01/16/25 14:14 of the Eye ibuprofen Allergy Unknown Unknown Verified 01/16/25 14:14 menthol Allergy Unknown Verified 01/16/25 14:14 ketorolac (From Toradol) AdvReac renal Verified 01/16/25 14:14 failure Current Medications Generic Name Dose Route Start Last Admin Trade Name Freq PRN Reason Stop Dose Admin Aspirin 81 mg 01/17/25 05:00 01/18/25 04:17 Aspirin 81 Mg Ec Tablet PO 81 mg DAILY GENA Administration Budesonide 0.5 mg 01/16/25 20:00 01/18/25 08:09 Budesonide 0.5 Mg/2 Ml Neb INHALATION 0.5 mg BID.RESPIRATORY GENA Administration Docusate Sodium 100 mg 01/16/25 18:42 01/18/25 04:17 Docusate Sodium 100 Mg Capsule PO 100 mg BID GENA Administration Enoxaparin Sodium 70 mg 01/17/25 10:00 01/17/25 21:54 Enoxaparin 80 Mg/0.8 Ml Syringe SUBCUT 70 mg Q12H GENA Administration Gabapentin 100 mg 01/16/25 18:42 01/18/25 04:17 Gabapentin 100 Mg Capsule PO 100 mg BID GENA Administration Norepinephrine Bitartrate 4 mg in 250 mls @ 0 mls/hr 01/16/25 17:00 01/17/25 19:30 Levophed IV 0 mcg/min .Q0M GENA 0 mls/hr Protocol Titration Per Protocol Sodium Chloride 1,000 mls @ 75 mls/hr 01/16/25 18:42 01/17/25 22:47 Sodium Chloride 0.9% IV 75 mls/hr .[id number] GENA Administration Albumin Human 25 g in 100 mls @ 60 mls/hr 01/17/25 20:15 01/18/25 06:14 Albumin IV Infused Q8H GENA Infusion Vancomycin HCl 750 mg/ Sodium 250 mls @ 250 mls/hr 01/17/25 20:30 01/17/25 22:50 Chloride IV Infused Q12H GENA Infusion Insulin Human Lispro 0 unit 01/16/25 18:42 01/17/25 21:55 Insulin Lispro 100 Unit/1 Ml SUBCUT 4 unit WM&BEDTIME GENA Administration Protocol Ipratropium [place] 0.5 mg 01/17/25 20:00 01/18/25 08:09 Ipratropium 0.5 Mg/2.5 Ml Neb INHALATION 0.5 mg Q6H.RESP GENA Administration Levalbuterol HCl 0.63 mg 01/17/25 20:00 01/18/25 08:09 Levalbuterol 0.63 Mg/3 Ml Neb INHALATION 0.63 mg Q6H.RESP GENA Administration Meropenem 1,000 mg 01/17/25 06:00 01/18/25 06:01 Meropenem 1,000 Mg Sdv IVP 1,000 mg Q12H GENA Administration Protocol Methylprednisolone Sodium Succinate 40 mg 01/17/25 13:15 01/18/25 06:14 Methylprednisolone Sod Succ 40 Mg/Ml Inj IVP 40 mg Q6H GENA Administration Morphine Sulfate 2 mg 01/16/25 18:42 01/17/25 09:43 Morphine 4 Mg/Ml Sdv 1 Ml IVP 2 mg Q4H PRN Administration SEVERE PAIN Oxycodone/Acetaminophen 1 tab 01/17/25 13:05 01/18/25 04:40 Oxycodone-Apap 5-325 Mg Tablet PO 1 tab Q6H PRN Administration MODERATE PAIN Pantoprazole Sodium 40 mg 01/16/25 17:00 01/17/25 16:34 Pantoprazole 40 Mg Sdv IVP 40 mg Q24H GENA Administration PFSH Acute PFSH: Medical History (Updated 01/18/25 @ 08:42 by Selvin Noel DPM) Enrolled in chronic care management Depression Pulmonary embolism Type 2 diabetes mellitus without complication, without long-term current use of insulin 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 Left ureteral calculus 02/09/2023 [facility] Bilateral lower extremity edema Non-smoker COPD (chronic obstructive pulmonary disease) Pulmonary sarcoidosis Hyperlipidemia ASHD (arteriosclerotic heart disease) 2016 stents x2 HTN (hypertension) Surgical History History of eye surgery History of back surgery H/O bilateral cataract extraction S/P PTCA (percutaneous transluminal coronary angioplasty) S/P cholecystectomy S/P skin cancer resection Family History Brother CAD (coronary artery disease) valve replaced Mother Lung disease Denies family history of Diabetes Clotting disorder Dementia Chronic kidney disease (CKD) Suicide Anesthesia complication Bleeding disorder Cancer Stroke Social History Smoking and tobacco/nicotine status: never used tobacco/nicotine Second hand smoke exposure: No Alcohol intake: never Substance/Drug Use: never Vitals/I&O/Wt Last Vital Signs Temp 97.1 F L 01/18/25 04:30 Pulse 83 01/18/25 08:16 Resp 16 01/18/25 08:00 BP 123/74 01/18/25 06:15 Pulse Ox 98 01/18/25 08:00 O2 Del Method BiPAP 01/18/25 08:00 O2 Flow Rate 2 01/17/25 20:08 FiO2 21 01/18/25 08:00 01/17/25 01/18/25 01/18/25 22:59 06:59 14:59 Intake Total 1705 / 4094.5 500 / 4594.5 Output Total 950 / 950 800 / 1750 Balance 755 / 3144.5 -300 / 2844.5 Weight last 48 hrs Weight 167 lb 8.821 oz Weight 158 lb 11.725 oz Weight 157 lb 10.088 oz Weight 160 lb Physical Exam Narrative: BELOW IS A FOCUSED LOWER EXTREMITY EXAM GENERAL: A&O x 3 VASCULAR: DP/PT pulses palpable 2/4 with CFT intact, <3seconds to distal digits. +3 pitting edema bilateral lower extremities. DERMATOLOGICAL: Skin turgor and temperature is within normal limits. No interdigital maceration noted. Cellulitis bilateral lower extremities small superficial venous stasis ulceration to medial aspect of right calf muscle measuring 0.8 x 0.7 x 0.2 cm MUSCULOSKELETAL: No gross musculoskeletal deformities noted. Pain with palpation of periwound area to right leg. NEUROLOGICAL: Neurological sensation to the affected foot and ankle is present through L4-S1 dermatomes with no hyper/hypoesthesias, negative Tinel or Valleix's sign Urinary Catheter Management: Plaza: Cath Placed During This Visit: no Reason for Continuing Indwelling Catheter: Accurate Measurement of Urinary Output in Critically Ill Patients Data 01/18/25 06:29 01/18/25 06:29 Micro: Microbiology 01/16/25 16:20 Blood Culture - Preliminary Blood NEGATIVE TO DATE 01/16/25 16:21 Blood Culture - Preliminary Blood NEGATIVE TO DATE 01/16/25 16:30 Bacterial Antigens - Final Urine Kidney 01/16/25 16:30 Urine Culture - Preliminary Urine,Clean Catch Gram Negative Rods A&P Assessment and plan 1. Cellulitis: 2. Venous stasis: Plan: Bilateral lower extremity venous stasis with cellulitis leading to sepsis Patient seen and evaluated in the ICU. No surgical debridement warranted at this time. Focus on local wound care. Right leg wound and lateral right heel dressed with Hydrofera Blue. Multilayer compression wrap consisting of Unna boot, Webril, 4 inch, 6 inch Jay applied to bilateral lower extremities. This will remain intact until 01/20/2025. Keep legs elevated. Float heels. Continue antibiotics per primary team. Discharge plan to be determined PDMP PDMP Reviewed: Not Reviewed Coding Level of Care Code Acute Code for [facility] Diagnoses Cellulitis L03.90 Venous stasis I87.8
[2025-01-18 09:44] LABS: PCP Screen Urine Negative (Negative)
--- NOTE | 2025-01-18 10:19 | PC.NURSE ---
Dressing to lower legs applied by Dr. Noel this morning. He stated he would change dressings on Tuesday.
--- NOTE | 2025-01-18 11:21 | XRR_ITS ---
PROCEDURE INFORMATION: Exam: XR Chest Exam date and time: 01/18/2025 11:29 AM Age: 65 years old Clinical indication: Shortness of breath; Additional info: SOB TECHNIQUE: Imaging protocol: Radiologic exam of the chest. Views: 1 view. COMPARISON: CT angio chest PE protcl [id number] 01/17/2025 6:06 PM FINDINGS: Lungs: Mild decreased inspiration with mild basilar atelectasis, more prominent on the right. No consolidation. Pleural spaces: No significant pleural effusion. No pneumothorax. Heart/Mediastinum: Unremarkable. No cardiomegaly. Bones/joints: Previous vertebroplasty changes thoracic spine, chronic. Soft tissues: Surgical clips right axillary region. Other findings: No significant change with previous exam 01/16/2025. XR/XR chest 1V portable [id number] IMPRESSION: Mild basilar atelectasis, more prominent on the right.
[2025-01-18] MEDS: FUROsemide 10 mg/mL SDV 4mL 40 MG IVP (11:38)
--- NOTE | 2025-01-18 12:19 | PC.SOCIAL ---
IMM Updated Updated pt on IMM. No questions voiced. Provided pt a copy. Initialed, dated, & timed a copy & placed in chart.
[2025-01-18 12:28] LABS: Hematocrit 26.9 % (37-53); Hemoglobin 8.20 g/dL (11.27-16.99); Mean Corpuscular HGB Conc 30.5 g/dL (30-55); Mean Corpuscular Hemoglobin 30.7 pg (27-33); Mean Corpuscular Volume 100.7 fl (82-101); Nucleated Red Blood Cells % 0 %; Platelet Count 249 10^3/cmm (157-399); Red Blood Count 2.67 10^6/uL (3.85-5.65); White Blood Count 12.31 10^3/uL (3.29-11.43)
--- NOTE | 2025-01-18 12:36 | PM.PN ---
Subjective Subjective: Partha Roe is a 65 year old male COPD, sarcoidosis diagnosed in 2018, biopsy-proven on 20 mg of prednisone since then attempting to wean off gets admitted to the hospital with worsening shortness of breath was placed on BiPAP and I was consulted for further management Patient was gradually weaned off of prednisone. CT scan done recently does not have any evidence of any lung nodules or evidence of sarcoidosis. He was on albuterol and Trelegy for his COPD. Outpatient labs showed normal alpha-1 antitrypsin levels, TERRA and ESR levels are normal This admission patient comes to the ER with fever weakness and low blood pressure. Patient had had leg cellulitis for the last 2 days becoming woozy and foul-smelling. He was found to be in septic shock and admitted to the hospital. Fluid bolus given. Empirically started on IV IV vancomycin and meropenem. Creatinine was found to be elevated at 1.7. Patient was also treated for COPD Exacerbation with Pulmicort twice daily and DuoNebs every 6 hours Labs were consistent with white count of 19. ABG shows a pH of 7.23, pCO2 of 41 we will start her on BiPAP and tolerating it well. CT chest showed no PE and some bibasilar infiltrates in the dependent portion of the chest possible pneumonia mucous plugging bilateral lower lobes. 01/18/2025 Of levo since morning. Doing well on BiPAP overnight. Eating Vitals/I&O/Wt Last Vital Signs Temp 97.1 F L 01/18/25 04:30 Pulse 114 H 01/18/25 11:30 Resp 22 H 01/18/25 11:30 BP 128/74 01/18/25 10:30 Pulse Ox 94 01/18/25 11:30 O2 Del Method BiPAP 01/18/25 08:00 O2 Flow Rate 2 01/17/25 20:08 FiO2 21 01/18/25 08:00 01/17/25 01/18/25 01/18/25 22:59 06:59 14:59 Intake Total 1705 / 4094.5 500 / 4594.5 Output Total 950 / 950 800 / 1750 Balance 755 / 3144.5 -300 / 2844.5 Weight last 48 hrs Weight 167 lb 8.821 oz Weight 158 lb 11.725 oz Weight 157 lb 10.088 oz Weight 160 lb Physical Exam Narrative: per RN General: Obese laying in bed on BiPAP HEENT: conj clear, EOMI, PERRL Neck: supple Pulmonary: C moderately rhonchorous breath sounds bilaterally Cardiovascular: rrr, nl s1s2, no mrg Abdomen: soft, nt, nd, no r/g, Extremities: pulses +, Skin: Bilateral lower legs cellulitis noted Neurologic: grossly intact Agree with above exam Urinary Catheter Management: Plaza: Cath Placed During This Visit: no Reason for Continuing Indwelling Catheter: Accurate Measurement of Urinary Output in Critically Ill Patients Data 01/18/25 12:04 01/18/25 06:29 Micro: Microbiology 01/16/25 16:20 Blood Culture - Preliminary Blood NEGATIVE TO DATE 01/16/25 16:21 Blood Culture - Preliminary Blood NEGATIVE TO DATE 01/16/25 16:30 Bacterial Antigens - Final Urine Kidney 01/16/25 16:30 Urine Culture - Preliminary Urine,Clean Catch Gram Negative Rods A&P Assessment and plan 1. COPD (chronic obstructive pulmonary disease): Plan: # Septic shock-most likely due to bilateral lower extremity cellulitis as well as pneumonia probable -Patient's lower extremities are most likely the source of his sepsis although pneumonia is a possibility - Endorgan damage is renal as well as hemodynamic collapse - Continue broad-spectrum antibiotics with vancomycin and meropenem - Fluid bolus has been given already currently running at NS 75 mL/h. - Wean off levo as tolerated - Labs reviewed-WBC count elevated including procalcitonin and ESR # Bilateral lower leg extremity cellulitis Plan as above, wound dressing changes daily # Acute on chronic hypercapnic/hypoxic respiratory failure Continue DuoNebs along with Pulmicort, Brovana added -Continue steroids # Acute COPD exacerbation -Continue bronchodilators, steroids -Wean off BiPAP as tolerated # Probable bilateral pneumonia -CT scan reviewed did not show any PE but did show mucous plugging in the bilateral lower lobes suggestive of pneumonia close to the diaphragm -Antibiotics as above- -Urine growing gram-negative rods but may not be true UTI recommend changing catheter and checking another UA. All others NGTD. Staph epi in 1 out of 2 blood cultures most likely contaminant # Mucous plugging -Will prescribe Acapella # Obesity # MICHELLE -Improving # Acute lactic acidosis -Improving # Hypoalbuminemia The high probability of a clinically significant, sudden or life threatening deterioration of the patient's [Respiratory, cardiac and renal] system(s) required my full and direct attention, intervention and personal management. The critical care time is as shown. This time is in addition to time spent performing any reported procedures but includes the following: [x] Data and vital sign review and interpretation [x] Patient assessment, examination and intervention [x] Documentation [x] Medication orders and management Critical Care Time (min): 35 Telemedicine Consent Patient seen today via Telemedicine by agreement and consent of patient.? Telemedicine technology used during the visit includes audio and, as available, review of images.? The patient encounter is appropriate and reasonable under the circumstances given the patient?s particular presentation at this time.? The patient has been advised of the potential risks and limitations of this mode of treatment (including but not limited to the absence of in-person examination) and has agreed to be treated in a remote fashion in spite of them.? Any, and all, of the patient?s/patient?s family?s questions on this issue have been answered and I have made no promises or guarantees to the patient. The patient has also been advised to contact this office for worsening conditions or problems, and seek emergency medical treatment and/or call 911 if the patient deems either necessary PDMP PDMP Reviewed: Not Reviewed Coding Level of Care Code Acute Code for [facility] Fwd Diagnoses COPD (chronic obstructive pulmonary disease) J44.9
--- NOTE | 2025-01-18 15:03 | P.PN_ITS ---
Subjective 2 Subjective: No acute events overnight. Today morning patient seen laying comfortably in bed. At first was on BiPAP was later transitioned to nasal cannula. Has been saturating more than 92%. As per patient and spouse breathing at baseline. Patient states he is feeling slightly better. Denies any nausea, vomiting, headache. Vitals/I&O/Wt Last Vital Signs Temp 97.1 F L 01/18/25 04:30 Pulse 121 H 01/18/25 14:37 Resp 18 01/18/25 14:25 BP 128/74 01/18/25 10:30 Pulse Ox 95 01/18/25 14:25 O2 Del Method Room Air 01/18/25 14:25 O2 Flow Rate 2 01/17/25 20:08 FiO2 21 01/18/25 08:00 01/18/25 01/18/25 01/18/25 06:59 14:59 22:59 Intake Total 500 / 4594.5 Output Total 800 / 1750 Balance -300 / 2844.5 Weight last 48 hrs Weight 76 kg Weight 72 kg Weight 71.5 kg Physical Exam 2 Narrative: General: In distress because of back pain, AO x 3, sick appearing HEENT: PERRLA, pupils bilaterally equal and reactive Chest: Bilateral bronchial breath sounds all lung cortez occasional rhonchi CVS: S1-S2 regular, no murmurs, no tachycardia, no gallops, no rubs Abdomen: Soft, obese, nontender, no organomegaly, bowel sounds present Neuro: No focal deficits, no facial deformity, AO x3, power 5/5 in all limbs Skin: OTHER: Urinary Catheter Management: Plaza: Cath Placed During This Visit: no Reason for Continuing Indwelling Catheter: Accurate Measurement of Urinary Output in Critically Ill Patients Data 01/18/25 12:04 01/18/25 06:29 Micro: Microbiology 01/16/25 16:20 Blood Culture - Preliminary Blood NEGATIVE TO DATE 01/16/25 16:21 Blood Culture - Preliminary Blood NEGATIVE TO DATE 01/16/25 16:30 Bacterial Antigens - Final Urine Kidney 01/16/25 16:30 Urine Culture - Preliminary Urine,Clean Catch Gram Negative Rods A&P Assessment and plan 1. Severe sepsis: SIRS: Tachycardic, Febrile, Leukocytosis Source: Lower limb cellulitis End organ damage: MICHELLE on CKD Elevated lactic acid level Received full sepsis bolus for 30 mL/kg body weight. Repeat cheetah exam shows patient being fluid responsive. Getting 1 more liter of fluid bolus. Continue NS at 75 cc/h after sepsis bolus. Maintain mean artery pressure 65. Wean Levophed accordingly. Follow-up blood culture, urine culture, negative MRSA swab, appreciate trend procalcitonin, negative urine bacterial antigen. Elevated ESR, CRP. Appreciate bilateral lower limb CT scan negative for concern for collection or osteomyelitis. Continue with IV vancomycin and meropenem. Renally dosed. 2. Bilateral lower leg cellulitis: 3. Acute kidney injury: Most likely in setting of severe sepsis. Baseline creatinine normal. Currently resolved. Associated with metabolic acidosis. Continue with IV fluids as above. Monitor renal functions daily. Strict input output charting. Daily weights. 4. High anion gap metabolic acidosis: 5. Elevated lactic acid level: 6. Primary hypertension: Goal blood pressure less than 140/90 mmHg with mean over 65. Patient takes losartan, metoprolol at home. Hold off on antihypertensive for now. Currently on Levophed for shock 7. Chronic diastolic heart failure: Last echocardiogram from April 2024 shows an EF of 50 to 55% grade 1 diastolic function. Currently euvolemic. Watch for fluid overload. 8. Pulmonary embolism: Takes Eliquis 5 mg twice daily at home. Continue with full dose Lovenox 1 mg/kg body weight twice daily as per creatinine clearance. 9. ASHD (arteriosclerotic heart disease): 10. Centrilobular emphysema: Oxygen supplementation keeping saturation over 90%. Pulmicort twice daily, DuoNeb every 6 hour. Will add Solu-Medrol 40 mg Q6 hourly for now. Plan: Back pain: Chronic as per patient. Has been scheduled for outpatient surgery. Appreciate recent lumbar MRI. Once patient improves if he continues to have significant pain can involve orthopedic surgery to see if they would like to proceed with the OR during current admission. Physical therapy once blood pressure stable Morphine 2 mg every 4 hours as needed. Patient reporting [place] never helps him. Will trial with oxycodone 5 mg one-time and if it helps we will start on Percocet 5 mg 6 hours as needed along with oxycodone ER 10 mg twice daily. Type 2 diabetes mellitus: A1c of 7 Sliding scale low-dose protocol. Depending on insulin requirement in next 24 hours will add Lantus. Patient takes Lantus 15 units daily at home. Full code Carb consistent cardiac diet Protonix for PUD prophylaxis Full dose Lovenox was sufficient for PUD prophylaxis Plan for the day: Urine culture for now growing gram-negative rods. Blood cultures so far negative. Continue with meropenem. Will discontinue vancomycin. Patient is MRSA swab negative. Leukocytosis resolving today. Blood work needs to be confirmed as all 3 lines including WBC, hemoglobin and platelet count are drastically lower than yesterday. Will repeat stat CBC. If hemoglobin actually lower than yesterday then will plan for stool for occult blood. Change Protonix to 40 mg twice daily. Add Carafate ACHS precautionary for now. For now we will continue with full dose Lovenox as patient does have history of PE in the past. No active sign of for now. Appreciate podiatry recommendations. Continue wound care and pressure compression stockings for now. MICHELLE is resolved. Hold off any further IV fluids. Repeat chest x-ray. IV Lasix 40 mg one-time. Strict input output charting. Can redose Lasix depending on renal functions and fluid status going forward. Echocardiogram results awaited. Out of bed to chair. Continue with Solu-Medrol 40 mg Q6 hourly, Pulmicort twice daily, ipratropium, Xopenex every 6 hour. Blood pressure stable. Goal blood pressure less than 140/90 mmHg with mean over 65. Levophed has been discontinued. Add metoprolol 25 mg twice daily. PDMP PDMP Reviewed: Not Reviewed Attestations 2 Medical Necessity Statement*: Requires further hospitalization for management of sepsis in setting of UTI, cellulitis, shortness of breath in setting of COPD exacerbation, anemia Diagnoses Severe sepsis A41.9; R65.20 Bilateral lower leg cellulitis L03.116; L03.115 Acute kidney injury N17.9 High anion gap metabolic acidosis E87.29 Elevated lactic acid level R79.89 Primary hypertension I10 Hypertension type: primary hypertension Chronic diastolic heart failure I50.32 Pulmonary embolism I26.99 ASHD (arteriosclerotic heart disease) I25.10 Centrilobular emphysema J43.2 COPD type: emphysema Emphysema type: centrilobular
[2025-01-18] MEDS: pantoprazole 40 mg SDV IVP ×2 (15:04→22:43)
--- NOTE | 2025-01-18 16:40 | USCV_ITS ---
Partha Roe Age: 65 Gender: M : 1960 Exam Date: 01/18/2025 02:29 Ordering Phys: Tonny Talamantes MD Technologist: BRIANA Exam Location: [facility] [place] Indication: sepsis, h/o CHF, hx COPD, asthma, history of pulmonary emboli, DM2, HL, HTN, CAD s/p PCI BP: 123 / 61 HR: 92 Rhythm: Sinus Technical Quality: Adequate MEASUREMENTS (Male / Female) Normal Values 2D ECHO LV Diastolic Diameter PLAX 4.0 cm 4.2 - 5.9 / 3.9 - 5.3 cm IVS Diastolic Thickness 1.0 cm 0.6 - 1.0 / 0.6 - 0.9 cm IVS Systolic Thickness 1.6 cm LVPW Diastolic Thickness 1.1 cm 0.6 - 1.0 / 0.6 - 0.9 cm LVPW Systolic Thickness 1.2 cm LVOT Diameter 1.7 cm LV Ejection Fraction 2D Teich 60.4 % LV Ejection Fraction MOD 4C 40.7 % LV Ejection Fraction MOD 2C 49.8 % LV Ejection Fraction 2C AL 49.4 % LA Diameter 3.4 cm Aorta at Sinotubular Diameter 2.3 cm IVC Diameter 1.9 cm M-MODE LA Ao Ratio MM 1.4 AV Cusp Separation MM 1.8 cm DOPPLER AV Peak Velocity 132.0 cm/s LVOT Peak Velocity 98.0 cm/s AV Area Cont Eq vti 2.0 cm squared AV Area Cont Eq pk 1.7 cm squared MV Peak Velocity 114.0 cm/s MV Area PHT 4.6 cm squared Mitral E to A Ratio 0.9 PV Peak Velocity 102.0 cm/s FINDINGS Left Ventricle Technically limited quality echocardiogram because of poor ultrasonic windows. Grossly LV systolic function is normal. Right Ventricle Normal right ventricular size and systolic function. Right Atrium Normal right atrial size. Left Atrium Normal left atrial size. IA Septum Grossly normal Mitral Valve Normal mitral valve structure.Trace mitral regurgitation Aortic Valve Grossly normal aortic valve. No significant stenosis. Tricuspid Valve Insufficient TR jet to calculate RVSP Pulmonic Valve Not well visualized Pericardium No pericardial effusion. Aorta Normal in size IVC Normal IVC diameter. CONCLUSIONS Technically limited quality echocardiogram because of poor ultrasonic windows. Grossly LV systolic function is normal. Trace mitral regurgitation. Shaggy Arrieta MD (Electronically Signed) Final Date: 18 January 2025 17:42 S
[2025-01-18] MEDS: sucralfate 1 gm/10 mL Oral Liq UDC PO ×2 (17:40→21:36)
[2025-01-19] VITALS (61 sets, daily range): BP systolic 100–159; BP diastolic 67–118; PULSE 64–143; RESP 14–28; TEMP 36.3–36.9; O2SAT 79–100
[2025-01-19] MEDS: methylPREDNISolone sod succ 40 mg/mL INJ IVP ×4 (01:25→20:53)
--- NOTE | 2025-01-19 04:15 | PC.NURSE ---
Confusion Patient stated he thought the year was 2016 and could not state where he was. Pupils and bilateral bench manager equal. No facial droop or speech changes noted. Dr. Story notified; no new orders received.
[2025-01-19] MEDS: albumin 25 G/100 ML BAG 60 G IV ×2 (05:55→11:05)
[2025-01-19] MEDS: meropenem 1,000 mg SDV 1000 MG IVP ×2 (05:56→17:34)
[2025-01-19] MEDS: sucralfate 1 gm/10 mL Oral Liq UDC PO ×3 (08:44→17:34)
[2025-01-19] MEDS: pantoprazole 40 mg SDV IVP (11:03)
[2025-01-19] MEDS: oxyCODONE-APAP 5-325 mg Tablet 1 TAB PO (11:20)
[2025-01-19] MEDS: FUROsemide 10 mg/mL SDV 4mL 40 MG IVP (12:56)
[2025-01-19] MEDS: morphine 10 mg/0.5 mL oral liq UD 5 MG PO ×2 (12:56→17:33)
[2025-01-19 17:48] LABS: ABG PCO2 49.5 mmHg (35-45); ABG PH Result 7.19 (7.35-7.45); Arterial Blood Gas Hematocrit 31.7 % (42-52); Blood Gas Allen Test Pos; Blood Gas Operator Identificat GD; Blood Gas Sample Site Radial, left; Blood Gas Sample Type Arterial; HCO3 ABG 18.9 mmol/L (22-26); PO2 ABG 82.0 mmHg (80.0-100.0); PO2 FiO2 Ratio Arterial Blood 273
[2025-01-19] MEDS: morphine 4 mg/mL SDV 1 mL 2 MG IVP (18:04)
--- NOTE | 2025-01-19 18:09 | PM.PN ---
Subjective Subjective: Patient seen this morning before noon: Patient with increased work of breathing. He feels like he cannot breathe without the BiPAP. I just been updated by the ICU nurse. Patient continuing to struggle with elevated respiratory rate. ABG 7.1 /. This is a combination of respiratory and metabolic acidosis. Patient on antibiotics steroids and nebs will proceed with intubation Vitals/I&O/Wt Last Vital Signs Temp 97.4 F L 01/19/25 06:00 Pulse 143 H 01/19/25 18:00 Resp 24 H 01/19/25 18:00 BP 141/99 01/19/25 18:00 Pulse Ox 95 01/19/25 18:00 O2 Del Method BiPAP 01/19/25 13:29 O2 Flow Rate 3 01/19/25 00:30 FiO2 30 01/19/25 15:41 01/19/25 01/19/25 01/19/25 06:59 14:59 22:59 Intake Total 650 / 650 Output Total 550 / 1450 400 / 400 Balance -550 / -650 650 / 650 -400 / 250 Weight last 48 hrs Weight 75.5 kg Weight 76 kg Physical Exam Narrative: Patient in mild distress this morning now in severe distress due to dyspnea. Heart regular normal S1-S2 without loud murmur Lungs are severely diminished without wheezes rales or rhonchi Abdomen obese soft nontender nondistended positive bowel sounds Extremities bilateral lower extremities are wrapped with plans for changing them tomorrow. There is noticeable edema on the right greater than left lower extremity Urinary Catheter Management: Plaza: Cath Placed During This Visit: no Reason for Continuing Indwelling Catheter: Accurate Measurement of Urinary Output in Critically Ill Patients Data 01/18/25 12:04 01/18/25 06:29 Micro: Microbiology 01/19/25 06:26 Occult Blood (FIT) - Final Stool Routine Collection 01/16/25 16:30 Urine Culture - Final Urine,Clean Catch Klebsiella oxytoca esbl A&P Assessment and plan 1. Acute respiratory failure: Patient's work of breathing on the BiPAP was severe. He has combination of respiratory and metabolic acidosis. He will require intubation this evening. Patient is already treated for COPD with steroids and nebs. CT scan 2 days ago shows mucous plugging. 2. Severe sepsis: Patient was documented with bilateral lower extremity edema and has been receiving antibiotics. 3. Bilateral lower leg cellulitis: 4. High anion gap metabolic acidosis: 5. Chronic diastolic heart failure: Patient has been receiving a few doses of Lasix which I had restarted today. However he only had a urine output of just over 300 after receiving the Lasix dose. 6. Centrilobular emphysema: Patient on nebs and steroids and antibiotics that would cover any exacerbation of COPD 7. History of pulmonary embolism: Patient takes Eliquis 5 mg twice daily chronically 8. Type 2 diabetes mellitus without complication, without long-term current use of insulin: Plan: Emergent intubation tonight. CT scan from 2 days ago shows mucous plug plugging. Patient probably would benefit from bronchoscopy. Will inquire if our pharmacist's aide is available on the weekend. PDMP PDMP Reviewed: Not Reviewed Attestations Medical Necessity Statement*: Continued hospitalization for acute respiratory failure and metabolic acidosis. 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
[2025-01-19] MEDS: etomidate 20 ML 10000 MG ×2 (18:21→18:54)
--- NOTE | 2025-01-19 18:21 | XRR_ITS ---
PROCEDURE INFORMATION: Exam: XR Chest Exam date and time: 01/19/2025 6:24 PM Age: 65 years old Clinical indication: Device placement; Ett placement (vent status); Additional info: Intubation TECHNIQUE: Imaging protocol: Radiologic exam of the chest. Views: 1 view. COMPARISON: CR XR chest 1V portable [id number] 01/18/2025 11:29 AM FINDINGS: Limitations: Patient rotation. Tubes, catheters and devices: Endotracheal tube proximally 2.9 cm above the alli. Lungs: Left perihilar markings are likely enhanced due to patient rotation. Pleural spaces: Probable stable small pleural effusions. No pneumothorax. The left lateral lung base is clipped from the image. Heart/Mediastinum: Heart size is poorly evaluated. Bones/joints: No acute osseous abnormalities are seen. XR/XR chest 1V portable [id number] IMPRESSION: Endotracheal tube proximally 2.9 cm above the alli.
--- NOTE | 2025-01-19 18:24 | ANES.PROC ---
Anesthesia Procedures Procedure/Date: 01/19/25 Intubation: Time Out Performed: Yes Consent: requested by attending/covering physician Sedative (amount): etomidate Paralytic (amount): succinylcholine Laryngoscope: fiber optic video scope ET Tube Size: 8 ET Tube Uncuffed: Yes Tube Secured Depth (cm): 25 Tube Secured Location: lips Tube Placement Confirmation: visualized tube passing through cords Patient Tolerated Procedure: well Intubation Complications: none Additional Comments: Was called for emergent intubation for acute respiratory decompensation. SpO2 in the low 80s upon arrival
--- NOTE | 2025-01-19 18:28 | PC.NURSE ---
severe resp distress noted sat decrease and heart rate elevated tachy , blood pressure elevated doctor called and called update aneeduardoa called and here and intubated chest xraY done ,, etamatte 20 and 100 succ given at this time .... in
[2025-01-19] MEDS: rocuronium 10 mg/mL INJ 5mL (18:58)
[2025-01-19] MEDS: succinylcholine 20 mg/mL SDV 10mL 200 MG (18:59)
[2025-01-19] MEDS: propofol 1,000 MG/100 ML INJ 18 MG (19:08)
[2025-01-19] MEDS: fentaNYL 1,000 MCG/100 ML BAG 2.5 MCG IV (19:40)
[2025-01-19] MEDS: propofol 1,000 MG/100 ML INJ 22.65 MG IV (23:05)
--- NOTE | 2025-01-19 23:20 | XRR_ITS ---
PROCEDURE INFORMATION: Exam: XR Chest Exam date and time: 01/19/2025 11:30 PM Age: 65 years old Clinical indication: Device placement; Ng tube; Check S/P og placement. TECHNIQUE: Imaging protocol: Radiologic exam of the chest. Views: 1 view. COMPARISON: CR (CHEST, ) 01/19/2025 6:24 PM FINDINGS: Tubes, catheters and devices: An orogastric tube is in place with the distal tip overlying the stomach, in radiographically appropriate position. Endotracheal tube remains in place. Lungs: Apparent worsening diffuse hazy increased density throughout the bilateral lung cortez may be in part related to artifact. Pleural spaces: Bilateral pleural effusions. No visualized pneumothorax. Heart/Mediastinum: The heart is magnified. Bones/joints: No acute osseous abnormalities are seen. XR/XR chest 1V portable [id number] IMPRESSION: 1. Orogastric tube in radiographically appropriate position. 2. Apparent worsening diffuse hazy increased density throughout the bilateral lung cortez may be in part related to artifact. Worsening pulmonary edema or layering pleural effusions could also cause this appearance.
[2025-01-19] MEDS: chlorhexidine gluconate 4% Btl 118 mL 1 APPLIC TOPICAL (23:30)
[2025-01-20] VITALS (87 sets, daily range): BP systolic 92–129; BP diastolic 54–83; PULSE 88–115; RESP 14–21; TEMP 36.2–36.8; O2SAT 94–100
[2025-01-20] MEDS: pantoprazole 40 mg SDV IVP ×3 (00:26→22:58)
[2025-01-20] MEDS: FUROsemide 10 mg/mL SDV 4mL 40 MG IVP ×2 (01:31→12:18)
[2025-01-20] MEDS: methylPREDNISolone sod succ 40 mg/mL INJ IVP ×2 (01:31→08:28)
[2025-01-20 03:33] LABS: ABG PCO2 40.2 mmHg (35-45); ABG PH Result 7.32 (7.35-7.45); Alveolar-Arterial Oxygen Gradi 12.3 mmHg (5-10); Arterial Blood Gas Hematocrit 27.1 % (42-52); Blood Gas Allen Test Pos; Blood Gas Operator Identificat BD; Blood Gas Sample Site Radial, right; Blood Gas Sample Type Arterial; Blood Gas Tidal Volume 0.37; Carboxyhemoglobin 1.3 %THgb (0.4-20.1); Glucose Level-ABG 182.0 mg/dL (70-115); HCO3 ABG 20.4 mmol/L (22-26); Ionized Calcium Level - ABG 1.3 mmol/L (1.1-1.4); Methemoglobin 1.0 % (0.4-1.5); Oxygen Saturation ABG > 99.1; PEEP 10.0 cmH20; PO2 ABG 137.0 mmHg (80.0-100.0); PO2 FiO2 Ratio Arterial Blood 342; Potassium Level - ABG 3.2 mmol/L (3.5-5.0); Sodium Level - ABG 147.0 mmol/L (131-143)
[2025-01-20] MEDS: propofol 1,000 MG/100 ML INJ 22.65 MG IV ×5 (03:46→21:46)
[2025-01-20] MEDS: meropenem 1,000 mg SDV 1000 MG IVP ×2 (05:43→16:58)
[2025-01-20] MEDS: fentaNYL 1,000 MCG/100 ML BAG 7.5 MCG IV ×2 (08:20→19:23)
[2025-01-20] MEDS: sucralfate 1 gm/10 mL Oral Liq UDC PO ×4 (08:29→20:32)
--- NOTE | 2025-01-20 09:45 | P.PN_ITS ---
Subjective 2 Subjective: Partha Roe is a 65 year old male COPD, sarcoidosis diagnosed in 2018, biopsy-proven on 20 mg of prednisone since then attempting to wean off gets admitted to the hospital with worsening shortness of breath was placed on BiPAP and I was consulted for further management Patient was gradually weaned off of prednisone. CT scan done recently does not have any evidence of any lung nodules or evidence of sarcoidosis. He was on albuterol and Trelegy for his COPD. Outpatient labs showed normal alpha-1 antitrypsin levels, TERRA and ESR levels are normal This admission patient comes to the ER with fever weakness and low blood pressure. Patient had had leg cellulitis for the last 2 days becoming woozy and foul-smelling. He was found to be in septic shock and admitted to the hospital. Fluid bolus given. Empirically started on IV IV vancomycin and meropenem. Creatinine was found to be elevated at 1.7. Patient was also treated for COPD Exacerbation with Pulmicort twice daily and DuoNebs every 6 hours Labs were consistent with white count of 19. ABG shows a pH of 7.23, pCO2 of 41 we will start her on BiPAP and tolerating it well. CT chest showed no PE and some bibasilar infiltrates in the dependent portion of the chest possible pneumonia mucous plugging bilateral lower lobes. 01/20/2025 Patient decompensated last night and had to be urgently intubated. Became more dyspneic prior to intubation. Respiratory rate went up to 21 prior to intubation and became lethargic. Did not need pressors. Currently on tidal volume of 370 mL, respiratory rate of 14 FiO2 of 30%. On propofol and fentanyl drips for sedation. Review of systems-cannot be obtained patient is intubated and sedated Vitals/I&O/Wt Last Vital Signs Temp 97.1 F L 01/20/25 04:00 Pulse 95 01/20/25 09:00 Resp 14 01/20/25 08:30 BP 103/59 01/20/25 09:00 Pulse Ox 98 01/20/25 09:00 O2 Del Method Mechanical Ventilation 01/20/25 08:24 O2 Flow Rate 3 01/19/25 00:30 FiO2 40 01/20/25 08:30 01/19/25 01/20/25 01/20/25 22:59 06:59 14:59 Intake Total 40.605 / 690.605 717.103 / 1407.708 166.75 / 166.75 Output Total 400 / 400 900 / 1300 Balance -359.395 / 290.605 -182.897 / 107.708 166.75 / 166.75 Weight last 48 hrs Weight 167 lb 8.821 oz Weight 166 lb 7.184 oz Physical Exam 2 Narrative: per RN General: Obese laying in bed intubated sedated HEENT: conj clear, EOMI, PERRL Neck: supple Pulmonary: Diminished breath sounds bilaterally Cardiovascular: rrr, nl s1s2, no mrg Abdomen: soft, nt, nd, no r/g, Extremities: pulses +, Skin: Bilateral lower legs cellulitis noted, arms also seem to be seeping and oozing. Neurologic: grossly intact Agree with above exam Urinary Catheter Management: Plaza: Cath Placed During This Visit: no Reason for Continuing Indwelling Catheter: Accurate Measurement of Urinary Output in Critically Ill Patients Data 01/18/25 12:04 01/18/25 06:29 Micro: Microbiology 01/19/25 06:26 Occult Blood (FIT) - Final Stool Routine Collection A&P Assessment and plan 1. COPD (chronic obstructive pulmonary disease): Plan: # Septic shock-most likely due to bilateral lower extremity cellulitis as well as pneumonia -Patient's lower extremities are most likely the source of his sepsis although pneumonia sputum cultures pending obtain 01/19/2025 -Urine cultures positive for Klebsiella 01/16/2025 - Endorgan damage is renal as well as hemodynamic collapse - Continue broad-spectrum antibiotics with vancomycin and meropenem - Fluid bolus has been given already currently running at NS 75 mL/h. - Wean off levo as tolerated - Labs reviewed-WBC count elevated including procalcitonin and ESR # Bilateral lower leg extremity cellulitis Plan as above, wound dressing changes daily-discussed with nurse about possibly wrapping his arms as well. # Acute on chronic hypercapnic/hypoxic respiratory failure -Continue ventilator on low tidal volumes ventilation strategy per ARDS protocol. Showed 4 tidal volume around 350. Discussed with RT. Currently on 370 mL, except permissive hypercapnia. Current pH of 7.32 pCO2 of 40 suggestive of mixed respiratory and metabolic acidosis component. Continue DuoNebs along with Pulmicort, Brovana added -Continue steroids-increase to 125 Solu-Medrol Q8 -Reviewed notes from anesthesia. 8 ET tube placed, succinylcholine and etomidate given for intubation. Patient was found to be hypoxic and sats at lower 80s # Hypernatremia -Getting as needed doses of Lasix - Will start free water flushes at 200 mL 3 times daily per OG tube # Hypokalemia Potassium reviewed today, 3.2 replacement protocol ongoing. Ionized calcium is 1.3 which is adequate. # Acute COPD exacerbation -Continue bronchodilators, steroids -Continue ventilator and wean off as tolerated # Probable bilateral pneumonia -CT scan reviewed did not show any PE but did show mucous plugging in the bilateral lower lobes suggestive of pneumonia close to the diaphragm -Antibiotics as above- -Urine growing gram-negative rods but may not be true UTI recommend changing catheter and checking another UA. All others NGTD. Staph epi in 1 out of 2 blood cultures most likely contaminant # Bilateral lower leg cellulitis-severe -Currently covered with vancomycin and meropenem. Good anaerobic and beta- lactam coverage as well. -Wrapping legs and arms in place. Appreciate Dr. Mensah' help. # History of PE -On full dose Lovenox currently to replace per home dose Eliquis. Will need to place on hold until anemia recovers. No other source of bleeding noted. # Mucous plugging -Continue DuoNebs and bronchodilators with steroids. Also will start Mucinex to help mobilize secretions. # Obesity # MICHELLE -Improving # Acute lactic acidosis -Improving # Anemia -most likely sepsis induced. Not seeing any obvious source of bleeding currently. Hemoglobin did fall from 10.1-8.9 compared to 01/17/2025. Could be hemodilution. Will keep a close eye he is Hemoccult positive but not actively bleeding. Agree with Protonix 40 mg IV twice daily, hold anticoagulation. # Hypoalbuminemia -Agree with albumin 25 mg IV as needed Maintenance meds -Maintain glucose levels and keep blood glucose 140-180. Avoid hypoglycemia. Low-dose sliding scale in place. Also will need to start tube feeds tomorrow -DVT GI prophylaxis with protonix. Due to cellulitis SCDs cannot be placed leg wrappings ongoing Full code Goals of care discussion-discussed case with who is at bedside today on 01/20/2025. She is agreeable to the current plan of care. If he needs higher level of care her preference is to send patient to [facility]. Currently his ventilator settings are not that high and we will continue current care here. She is agreeable and comfortable with the plan. I discussed case with Dr. Peña as well as with staff at bedside. The high probability of a clinically significant, sudden or life threatening deterioration of the patient's [Respiratory, sepsis] system(s) required my full and direct attention, intervention and personal management. The critical care time is as shown. This time is in addition to time spent performing any reported procedures but includes the following: [x] Data and vital sign review and interpretation [x] Patient assessment, examination and intervention [x] Documentation [x] Medication orders and management Critical Care Time (min): 55 Telemedicine Consent Patient seen today via Telemedicine by agreement and consent of patient.? Telemedicine technology used during the visit includes audio and, as available, review of images.? The patient encounter is appropriate and reasonable under the circumstances given the patient?s particular presentation at this time.? The patient has been advised of the potential risks and limitations of this mode of treatment (including but not limited to the absence of in-person examination) and has agreed to be treated in a remote fashion in spite of them.? Any, and all, of the patient?s/patient?s family?s questions on this issue have been answered and I have made no promises or guarantees to the patient. The patient has also been advised to contact this office for worsening conditions or problems, and seek emergency medical treatment and/or call 911 if the patient deems either necessary PDMP PDMP Reviewed: Not Reviewed Attestations 2 Medical Necessity Statement*: Intubated sedated Coding Level of Care Code Acute Code for [facility] Fwd Diagnoses COPD (chronic obstructive pulmonary disease) J44.9
[2025-01-20] MEDS: methylPREDNISolone sod succ 125 mg/2 mL INJ IVP ×3 (10:53→21:46)
[2025-01-20 11:24] LABS: Hematocrit 26.1 % (37-53); Hemoglobin 8.00 g/dL (11.27-16.99); Mean Corpuscular HGB Conc 30.7 g/dL (30-55); Mean Corpuscular Hemoglobin 31.3 pg (27-33); Mean Corpuscular Volume 102.0 fl (82-101); NT Pro B Type Natriuretic Pept 18575 pg/mL (0-125); Nucleated Red Blood Cells % 0.2 %; Platelet Count 269 10^3/cmm (157-399); Red Blood Count 2.56 10^6/uL (3.85-5.65); White Blood Count 9.14 10^3/uL (3.29-11.43)
[2025-01-20 11:58] LABS: Alanine Aminotransferase 56 U/L (0-41); Albumin Level 3.7 g/dL (3.5-5.2); Alkaline Phosphatase 196 U/L (40-130); Anion Gap 22.5 (5-19); Aspartate Amino Transferase 54 U/L (0-40); Blood Urea Nitrogen 41 mg/dL (8-23); Calcium 9.0 mg/dL (8.5-10.5); Carbon Dioxide 19 mmol/L (22-29); Chloride 108 mmol/L (98-107); Creatinine Clr Calc Pharmacy 64.0889; Globulin 1.5 g/dL (1.3-4.6); Glucose 167 mg/dL (65-115); Magnesium 2.3 mg/dL (1.7-2.3); Osmolality Calculated 316 mOsm/kg (285-295); Potassium 3.5 mmol/L (3.5-5.1); Sodium 146 mmol/L (136-145); Total Protein 5.2 g/dL (6.6-8.7)
--- NOTE | 2025-01-20 17:10 | PM.PN ---
Subjective Subjective: Patient sedated on vent Vitals/I&O/Wt Last Vital Signs Temp 98 F 01/20/25 16:00 Pulse 105 H 01/20/25 16:00 Resp 14 01/20/25 15:44 BP 99/59 01/20/25 16:00 Pulse Ox 98 01/20/25 16:00 O2 Del Method Mechanical Ventilation 01/20/25 15:43 O2 Flow Rate 3 01/19/25 00:30 FiO2 30 01/20/25 15:44 01/20/25 01/20/25 01/20/25 06:59 14:59 22:59 Intake Total 717.103 / 1407.708 266.75 / 266.75 Output Total 900 / 1300 Balance -182.897 / 107.708 266.75 / 266.75 Weight last 48 hrs Weight 76 kg Weight 75.5 kg Physical Exam Narrative: Patient sedated on vent Heart regular normal S1-S2 without murmurs clicks gallops or rubs Lungs severely diminished breath sounds poor aeration no abnormal sounds identified Abdomen protuberant soft nontender nondistended positive bowel sounds Extremities lower extremities with less edema and erythema Right upper extremity also with less edema today once positioned off that arm Urinary Catheter Management: Plaza: Cath Placed During This Visit: no Reason for Continuing Indwelling Catheter: Accurate Measurement of Urinary Output in Critically Ill Patients Data 01/20/25 10:32 01/20/25 10:32 Micro: Microbiology 01/19/25 18:55 Gram Stain - Final Sputum - Endotracheal Tube Aspirate 01/16/25 16:20 Blood Culture - Preliminary Blood Staphylococcus epidermidis A&P Assessment and plan 1. Acute respiratory failure: Requiring mechanical ventilation Consulted pulmonary critical care, assistance greatly appreciated Vent settings per pulmonary Continue DuoNebs Pulmicort provide a added Pulmonary increased steroids to 125 Solu-Medrol Q8. 2. Severe sepsis: Patient on vancomycin and meropenem for bilateral lower extremity cellulitis severe this will also cover probable pneumonia and urine is growing gram-negative rods. 3. Bilateral lower leg cellulitis: Appreciate Dr. Noel assistance 4. High anion gap metabolic acidosis: 5. Chronic diastolic heart failure: Patient has been receiving a few doses of Lasix which I had restarted today. However he only had a urine output of just over 300 after receiving the Lasix dose. 6. Centrilobular emphysema: Carries a diagnosis of sarcoidosis. Please see Dr. Freed's note regarding this diagnosis 7. History of pulmonary embolism: Patient takes Eliquis 5 mg twice daily chronically Currently on Lovenox full dose 8. Type 2 diabetes mellitus without complication, without long-term current use of insulin: Plan: Continue current management. Greatly appreciate assistance with pulmonary critical care. PDMP PDMP Reviewed: Not Reviewed Attestations Medical Necessity Statement*: Continued hospitalization for acute respiratory failure requiring mechanical ventilation Coding Level of Care Code Acute Code for [facility] Diagnoses Acute respiratory failure J96.00 Severe sepsis A41.9; R65.20 Bilateral lower leg cellulitis L03.116; L03.115 High anion gap metabolic acidosis E87.29 Chronic diastolic heart failure I50.32 Centrilobular emphysema J43.2 COPD type: emphysema Emphysema type: centrilobular History of pulmonary embolism Z86.711 Type 2 diabetes mellitus without complication, without long-term current use of insulin E11.9 Diabetes mellitus complication status: without complication Diabetes mellitus detention insulin use: without petroleum terminal 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
[2025-01-20] MEDS: water for injection-sterile 20 ML 1000 ML (17:19)
[2025-01-20] MEDS: ARFORMOTEROL 15 MCG/2 ML NEB INHALATION (20:09)
[2025-01-21] VITALS (54 sets, daily range): BP systolic 99–134; BP diastolic 57–73; PULSE 94–128; RESP 14–16; TEMP 36.8–37.8; O2SAT 94–99
[2025-01-21] MEDS: meropenem 1,000 mg SDV 1000 MG IVP ×4 (00:28→23:26)
[2025-01-21] MEDS: FUROsemide 10 mg/mL SDV 4mL 40 MG IVP ×3 (00:28→19:34)
[2025-01-21] MEDS: propofol 1,000 MG/100 ML INJ 22.65 MG IV ×2 (02:09→07:02)
[2025-01-21] MEDS: methylPREDNISolone sod succ 125 mg/2 mL INJ IVP ×4 (04:12→21:57)
[2025-01-21] MEDS: ARFORMOTEROL 15 MCG/2 ML NEB INHALATION ×2 (07:35→20:44)
[2025-01-21] MEDS: sucralfate 1 gm/10 mL Oral Liq UDC PO ×4 (07:51→21:57)
[2025-01-21] MEDS: morphine 10 mg/0.5 mL oral liq UD 5 MG PO ×2 (07:52→13:14)
--- NOTE | 2025-01-21 08:23 | XRR_ITS ---
PROCEDURE INFORMATION: Exam: XR Chest Exam date and time: 01/21/2025 09:06 AM Age: 65 years old Clinical indication: Device placement; Ett placement (vent status); Additional info: On the vent TECHNIQUE: Imaging protocol: Radiologic exam of the chest. Views: 1 view. COMPARISON: CR XR chest 1V portable [id number] 01/19/2025 11:30 PM FINDINGS: Tubes, catheters and devices: Endotracheal tube tip overlies the midthoracic trachea, 2.4 cm above the alli. Enteric tube tip is in the body of the stomach. Lungs: Patchy perihilar and bibasilar airspace opacities with possible bilateral pleural effusions. Pleural spaces: No pneumothorax. Heart/Mediastinum: Cardiac size and configuration is stable. Bones/joints: Osteopenia. Soft tissues: Surgical clips in the right axillary region. XR/XR chest 1V portable [id number] IMPRESSION: Patchy perihilar and bibasilar airspace opacities with possible bilateral pleural effusions.
[2025-01-21] MEDS: fentaNYL 1,000 MCG/100 ML BAG 7.5 MCG IV ×2 (08:48→21:13)
[2025-01-21 09:25] LABS: Alanine Aminotransferase 39 U/L (0-41); Albumin Level 3.6 g/dL (3.5-5.2); Alkaline Phosphatase 167 U/L (40-130); Anion Gap 21.2 (5-19); Aspartate Amino Transferase 17 U/L (0-40); Blood Urea Nitrogen 42 mg/dL (8-23); Calcium 8.8 mg/dL (8.5-10.5); Carbon Dioxide 20 mmol/L (22-29); Chloride 105 mmol/L (98-107); Creatinine Clr Calc Pharmacy 64.6333; Globulin 1.4 g/dL (1.3-4.6); Glucose 218 mg/dL (65-115); Osmolality Calculated 313 mOsm/kg (285-295); Potassium 3.2 mmol/L (3.5-5.1); Sodium 143 mmol/L (136-145); Total Protein 5.0 g/dL (6.6-8.7)
--- NOTE | 2025-01-21 09:45 | P.PN_ITS ---
Subjective 2 Subjective: Partha Roe is a 65 year old male COPD, sarcoidosis diagnosed in 2018, biopsy-proven on 20 mg of prednisone since then attempting to wean off gets admitted to the hospital with worsening shortness of breath was placed on BiPAP and I was consulted for further management Patient was gradually weaned off of prednisone. CT scan done recently does not have any evidence of any lung nodules or evidence of sarcoidosis. He was on albuterol and Trelegy for his COPD. Outpatient labs showed normal alpha-1 antitrypsin levels, TERRA and ESR levels are normal This admission patient comes to the ER with fever weakness and low blood pressure. Patient had had leg cellulitis for the last 2 days becoming woozy and foul-smelling. He was found to be in septic shock and admitted to the hospital. Fluid bolus given. Empirically started on IV IV vancomycin and meropenem. Creatinine was found to be elevated at 1.7. Patient was also treated for COPD Exacerbation with Pulmicort twice daily and DuoNebs every 6 hours Labs were consistent with white count of 19. ABG shows a pH of 7.23, pCO2 of 41 we will start her on BiPAP and tolerating it well. CT chest showed no PE and some bibasilar infiltrates in the dependent portion of the chest possible pneumonia mucous plugging bilateral lower lobes. 01/20/2025 Patient decompensated last night and had to be urgently intubated. Became more dyspneic prior to intubation. Respiratory rate went up to 21 prior to intubation and became lethargic. Did not need pressors. Currently on tidal volume of 370 mL, respiratory rate of 14 FiO2 of 30%. On propofol and fentanyl drips for sedation. 01/21/2025 Patient is on the ventilator tolerating tidal volume of 370 mL, FiO2 of 30%. Satting 96% peripherally. On propofol at 50 and fentanyl at 75 mics. Getting free water flushes. Review of systems-cannot be obtained patient is intubated and sedated Vitals/I&O/Wt Last Vital Signs Temp 98.9 F 01/21/25 08:00 Pulse 109 H 01/21/25 09:00 Resp 14 01/21/25 09:00 BP 106/62 01/21/25 09:00 Pulse Ox 98 01/21/25 09:00 O2 Del Method Mechanical Ventilation 01/21/25 09:00 O2 Flow Rate 3 01/19/25 00:30 FiO2 30 01/21/25 09:00 01/20/25 01/21/25 01/21/25 22:59 06:59 14:59 Intake Total 991.965 / 1258.715 449.282 / 1707.997 211.793 / 211.793 Output Total 975 / 975 300 / 1275 Balance 16.965 / 283.715 149.282 / 432.997 211.793 / 211.793 Weight last 48 hrs Weight 170 lb 10.205 oz Weight 167 lb 8.821 oz Physical Exam 2 Narrative: per RN General: Obese laying in bed intubated sedated HEENT: conj clear, EOMI, PERRL Neck: supple Pulmonary: Diminished breath sounds bilaterally Cardiovascular: rrr, nl s1s2, no mrg Abdomen: soft, nt, nd, no r/g, Extremities: pulses +, Skin: Bilateral lower legs cellulitis noted, arms also seem to be seeping and oozing. Neurologic: grossly intact Agree with above exam Urinary Catheter Management: Plaza: Cath Placed During This Visit: no Reason for Continuing Indwelling Catheter: Accurate Measurement of Urinary Output in Critically Ill Patients Data 01/20/25 10:32 01/21/25 04:29 Micro: Microbiology 01/19/25 18:55 Gram Stain - Final Sputum - Endotracheal Tube Aspirate 01/16/25 16:20 Blood Culture - Preliminary Blood Staphylococcus epidermidis A&P Assessment and plan 1. COPD (chronic obstructive pulmonary disease): Plan: # Septic shock-most likely due to bilateral lower extremity cellulitis as well as pneumonia -Patient's lower extremities are most likely the source of his sepsis although pneumonia sputum cultures pending obtain 01/21/2025 -Urine cultures positive for Klebsiella 01/16/2025 - Endorgan damage is renal as well as hemodynamic collapse - Continue broad-spectrum antibiotics with vancomycin and meropenem - Fluid bolus has been given already currently running at NS 75 mL/h. - Levo has been off. - Labs reviewed-01/21/2025-white count is 9.14, sodium normalized 143, potassium 2.2 creatinine 1.1. # Bilateral lower leg extremity cellulitis Plan as above, wound dressing changes daily-discussed with nurse about possibly wrapping his arms as well. # Acute on chronic hypercapnic/hypoxic respiratory failure -Continue ventilator on low tidal volumes ventilation strategy per ARDS protocol. Showed 4 tidal volume around 350. Discussed with RT. Currently on 370 mL, except permissive hypercapnia. Current pH of 7.32 pCO2 of 40 suggestive of mixed respiratory and metabolic acidosis component there on 01/20/2025. Will obtain another ABG today Continue DuoNebs along with Pulmicort, Brovana added -Continue steroids-increase to 125 Solu-Medrol Q8 -Reviewed notes from anesthesia. 8 ET tube placed, succinylcholine and etomidate given for intubation. Patient was found to be hypoxic and sats at lower 80s # Hypernatremia - Lasix IV 40 mg twice daily. Good urine output. - Stop free water flushes at 200 mL 3 times daily per OG tube-sodium is corrected to 143 today # Hypokalemia Potassium reviewed today, 3.2 replacement protocol ongoing. Ionized calcium is 1.3 which is adequate. # Acute COPD exacerbation -Continue bronchodilators, steroids -Continue ventilator and wean off as tolerated # Probable bilateral pneumonia -CT scan reviewed did not show any PE but did show mucous plugging in the bilateral lower lobes suggestive of pneumonia close to the diaphragm -Antibiotics as above- -Urine growing gram-negative rods but may not be true UTI recommend changing catheter and checking another UA. All others NGTD. Staph epi in 1 out of 2 blood cultures most likely contaminant NGTD 01/21/2025 # Bilateral lower leg cellulitis-severe -Currently covered with vancomycin and meropenem. Good anaerobic and beta- lactam coverage as well. -Wrapping legs and arms in place. Appreciate Dr. Mensah' help. # History of PE -On full dose Lovenox currently to replace per home dose Eliquis. Will need to place on hold until anemia recovers. No other source of bleeding noted. Repeat CBC again today # Lethargy Patient is on propofol and fentanyl drip as well as getting oxycodone and morphine as needed I have instructed nurse to wean off drips in order to assess neurostatus. May need only Precedex drip if he has any agitation issues. # Mucous plugging -Continue DuoNebs and bronchodilators with steroids. Continue Mucinex to help mobilize secretions. # Obesity # MICHELLE -Improved # Acute lactic acidosis -Improved # Anemia -most likely sepsis induced. Not seeing any obvious source of bleeding currently. Hemoglobin did fall from 10.1-8.9 compared to 01/17/2025. Could be hemodilution. Will keep a close eye he is Hemoccult positive but not actively bleeding. Agree with Protonix 40 mg IV twice daily, hold anticoagulation. # Hypoalbuminemia -Agree with albumin 25 mg IV as needed Maintenance meds -Maintain glucose levels and keep blood glucose 140-180. Avoid hypoglycemia. Low-dose sliding scale in place. start tube feeds tomorrow-Place Dobbhoff -DVT GI prophylaxis with protonix. Due to cellulitis SCDs cannot be placed leg wrappings ongoing Full code Goals of care discussion-discussed case with who is at bedside today on 01/20/2025,01/21. She is agreeable to the current plan of care. If he needs higher level of care her preference is to send patient to [place]. Currently his ventilator settings are not that high and we will continue current care here. She is agreeable and comfortable with the plan. The high probability of a clinically significant, sudden or life threatening deterioration of the patient's [Respiratory, sepsis] system(s) required my full and direct attention, intervention and personal management. The critical care time is as shown. This time is in addition to time spent performing any reported procedures but includes the following: [x] Data and vital sign review and interpretation [x] Patient assessment, examination and intervention [x] Documentation [x] Medication orders and management Critical Care Time (min): 55 Telemedicine Consent Patient seen today via Telemedicine by agreement and consent of patient.? Telemedicine technology used during the visit includes audio and, as available, review of images.? The patient encounter is appropriate and reasonable under the circumstances given the patient?s particular presentation at this time.? The patient has been advised of the potential risks and limitations of this mode of treatment (including but not limited to the absence of in-person examination) and has agreed to be treated in a remote fashion in spite of them.? Any, and all, of the patient?s/patient?s family?s questions on this issue have been answered and I have made no promises or guarantees to the patient. The patient has also been advised to contact this office for worsening conditions or problems, and seek emergency medical treatment and/or call 911 if the patient deems either necessary PDMP PDMP Reviewed: Not Reviewed Attestations 2 Medical Necessity Statement*: Intubated sedated Coding Level of Care Code Acute Code for Chg Fwd Diagnoses COPD (chronic obstructive pulmonary disease) J44.9
[2025-01-21 10:07] LABS: Hematocrit 26.3 % (37-53); Hemoglobin 8.00 g/dL (11.27-16.99); Mean Corpuscular HGB Conc 30.4 g/dL (30-55); Mean Corpuscular Hemoglobin 31.6 pg (27-33); Mean Corpuscular Volume 104.0 fl (82-101); Nucleated Red Blood Cells % 0.4 %; Platelet Count 274 10^3/cmm (157-399); Red Blood Count 2.53 10^6/uL (3.85-5.65); White Blood Count 9.76 10^3/uL (3.29-11.43)
[2025-01-21 10:20] LABS: ABG PCO2 38.8 mmHg (35-45); ABG PH Result 7.41 (7.35-7.45); Arterial Blood Gas Hematocrit 26.2 % (42-52); Blood Gas Allen Test Pos; Blood Gas Operator Identificat BROMA; Blood Gas Sample Site Radial, left; Blood Gas Sample Type Arterial; HCO3 ABG 24.6 mmol/L (22-26); PO2 ABG 112.0 mmHg (80.0-100.0)
[2025-01-21 10:21] LABS: Blood Gas Tidal Volume 0.37; PEEP 10.0 cmH20; PO2 FiO2 Ratio Arterial Blood 373
[2025-01-21] MEDS: pantoprazole 40 mg SDV IVP ×2 (10:41→23:26)
--- NOTE | 2025-01-21 13:57 | PC.SOCIAL ---
IMM Update pg 2 of IMM updated and reviewed w/ patients . Copy provided and copy dated, initialed and placed in chart.
[2025-01-21] MEDS: propofol 1,000 MG/100 ML INJ 9.06 MG IV (14:24)
[2025-01-21] MEDS: potassium chloride oral liq 20 mEq/15 mL UDC 40 MEQ OG-TUBE ×3 (15:40→23:26)
--- NOTE | 2025-01-21 18:57 | P.PN_ITS ---
Subjective 2 Subjective: Partha Roe is a 65 year old male COPD, sarcoidosis diagnosed in 2018, biopsy-proven on 20 mg of prednisone since then attempting to wean off gets admitted to the hospital with worsening shortness of breath was placed on BiPAP and I was consulted for further management Patient was gradually weaned off of prednisone. CT scan done recently does not have any evidence of any lung nodules or evidence of sarcoidosis. He was on albuterol and Trelegy for his COPD. Outpatient labs showed normal alpha-1 antitrypsin levels, TERRA and ESR levels are normal This admission patient comes to the ER with fever weakness and low blood pressure. Patient had had leg cellulitis for the last 2 days becoming woozy and foul-smelling. He was found to be in septic shock and admitted to the hospital. Fluid bolus given. Empirically started on IV IV vancomycin and meropenem. Creatinine was found to be elevated at 1.7. Patient was also treated for COPD Exacerbation with Pulmicort twice daily and DuoNebs every 6 hours. He is companied by his Priscilla. She states he has never been a smoker does not sleep in the same room as him but does not know if he snores really. She thinks his lung disease is all due to sarcoid Patient was intubated 01/19/2025 with worsening acute respiratory failure despite BiPAP with pH 7.19 pCO2 49. Currently undergoing diuresis Vitals/I&O/Wt Last Vital Signs Temp 99.0 F 01/21/25 16:00 Pulse 116 H 01/21/25 18:30 Resp 14 01/21/25 18:00 BP 113/57 01/21/25 18:30 Pulse Ox 96 01/21/25 18:30 O2 Del Method Mechanical Ventilation 01/21/25 18:00 O2 Flow Rate 3 01/19/25 00:30 FiO2 30 01/21/25 18:00 01/21/25 01/21/25 01/21/25 06:59 14:59 22:59 Intake Total 449.282 / 1707.997 290.000 / 290.000 411.885 / 701.885 Output Total 300 / 1275 625 / 625 Balance 149.282 / 432.997 290.000 / 290.000 -213.115 / 76.885 Weight last 48 hrs Weight 77.4 kg Weight 76 kg Physical Exam 2 Narrative: General well-developed well-nourished male on the vent mildly agitated he is gesturing with his arms which are restrained. Heart rate 133 CV regular tachycardic rate and rhythm no loud murmur Lungs clear on vent Abdomen diminished bowel tones soft nontender Calves 1+ to 2 edema arms 2+ to 3 right arm edema 2+ left there are signs of chronic venous stasis in the arms. Legs are in Unna boot Urinary Catheter Management: Plaza: Cath Placed During This Visit: no Reason for Continuing Indwelling Catheter: Accurate Measurement of Urinary Output in Critically Ill Patients Data 01/21/25 04:29 01/21/25 04:29 Micro: Microbiology 01/16/25 16:21 Blood Culture - Final Blood NO GROWTH AFTER 5 DAYS 01/19/25 18:55 Gram Stain - Final Sputum - Endotracheal Tube Aspirate Sputum Culture - Preliminary A&P Assessment and plan 1. Acute respiratory failure: Requiring mechanical ventilation Consulted pulmonary critical care, assistance greatly appreciated Vent settings per pulmonary Continue DuoNebs Pulmicort provide a added Pulmonary increased steroids to 125 Solu-Medrol Q8. 2. Severe sepsis: Patient on vancomycin and meropenem for bilateral lower extremity cellulitis severe this will also cover probable pneumonia and urine is growing gram- negative rods. 3. Bilateral lower leg cellulitis: Appreciate Dr. Noel assistance 4. High anion gap metabolic acidosis: Continue with diuresis 5. Chronic diastolic heart failure: Increase furosemide to 40 mg every 8 hours and give a dose of metolazone 5 mg x 1 albumin is 3.6 6. Centrilobular emphysema: Carries a diagnosis of sarcoidosis. Please see Dr. Freed's note regarding this diagnosis 7. History of pulmonary embolism: Patient takes Eliquis 5 mg twice daily chronically Currently on Lovenox full dose 8. Type 2 diabetes mellitus without complication, without long-term current use of insulin: Plan: Continue current management. Greatly appreciate assistance with pulmonary critical care. PDMP PDMP Reviewed: Not Reviewed Attestations 2 Medical Necessity Statement*: Patient remains intubated and sedated in the ICU Coding Level of Care Code 47857 Diagnoses Acute respiratory failure J96.00 Severe sepsis A41.9; R65.20 Bilateral lower leg cellulitis L03.116; L03.115 High anion gap metabolic acidosis E87.29 Chronic diastolic heart failure I50.32 Centrilobular emphysema J43.2 COPD type: emphysema Emphysema type: centrilobular History of pulmonary embolism Z86.711 Type 2 diabetes mellitus without complication, without long-term current use of insulin E11.9 Diabetes mellitus developer programmer insulin use: without developer programmer use Diabetes mellitus complication status: without complication Time Spent (min) 35
[2025-01-21] MEDS: metoprolol tartrate 1 mg/1 mL SDV 5 mL 5 MG IVP ×2 (19:34→23:26)
[2025-01-22] VITALS (57 sets, daily range): BP systolic 118–152; BP diastolic 64–92; PULSE 80–113; RESP 8–18; TEMP 36.7–37.7; O2SAT 91–97
[2025-01-22] MEDS: propofol 1,000 MG/100 ML INJ 15.86 MG IV (02:22)
[2025-01-22] MEDS: metoprolol tartrate 1 mg/1 mL SDV 5 mL 5 MG IVP ×5 (03:13→19:21)
[2025-01-22] MEDS: FUROsemide 10 mg/mL SDV 4mL 40 MG IVP ×3 (03:13→18:19)
[2025-01-22] MEDS: chlorhexidine gluconate 4% Btl 118 mL 1 APPLIC TOPICAL (04:00)
[2025-01-22 04:05] LABS: Hematocrit 26.2 % (37-53); Hemoglobin 7.90 g/dL (11.27-16.99); Mean Corpuscular HGB Conc 30.2 g/dL (30-55); Mean Corpuscular Hemoglobin 31.0 pg (27-33); Mean Corpuscular Volume 102.7 fl (82-101); Nucleated Red Blood Cells % 0.3 %; Platelet Count 260 10^3/cmm (157-399); Red Blood Count 2.55 10^6/uL (3.85-5.65); White Blood Count 10.61 10^3/uL (3.29-11.43)
[2025-01-22 04:27] LABS: Alanine Aminotransferase 27 U/L (0-41); Albumin Level 3.6 g/dL (3.5-5.2); Alkaline Phosphatase 151 U/L (40-130); Anion Gap 15.9 (5-19); Aspartate Amino Transferase 12 U/L (0-40); Blood Urea Nitrogen 53 mg/dL (8-23); Calcium 9.0 mg/dL (8.5-10.5); Carbon Dioxide 25 mmol/L (22-29); Chloride 111 mmol/L (98-107); Creatinine Clr Calc Pharmacy 59.2472; Globulin 1.4 g/dL (1.3-4.6); Glucose 269 mg/dL (65-115); Osmolality Calculated 328 mOsm/kg (285-295); Potassium 4.9 mmol/L (3.5-5.1); Sodium 147 mmol/L (136-145); Total Protein 5.0 g/dL (6.6-8.7)
[2025-01-22 04:33] LABS: Magnesium 2.6 mg/dL (1.7-2.3)
[2025-01-22] MEDS: fentaNYL 1,000 MCG/100 ML BAG 5 MCG IV (06:00)
[2025-01-22] MEDS: methylPREDNISolone sod succ 125 mg/2 mL INJ IVP ×4 (06:00→23:28)
[2025-01-22] MEDS: sucralfate 1 gm/10 mL Oral Liq UDC PO ×4 (07:21→21:24)
[2025-01-22] MEDS: ARFORMOTEROL 15 MCG/2 ML NEB INHALATION ×2 (08:15→20:30)
--- NOTE | 2025-01-22 08:40 | PC.NUTR ---
TF consult received. Recommend consideration of Glucerna 1.5 beginning at 15mls/hr increasing 10mls Q4-8H as tolerated until goal rate of 35mls/hr reached with FWF 100mls Q4H or per MD discretion.
--- NOTE | 2025-01-22 08:52 | XRR_ITS ---
PROCEDURE INFORMATION: Exam: XR Chest Exam date and time: 01/22/2025 9:04 AM Age: 65 years old Clinical indication: Cardiovascular condition or disease; Congestive heart failure (chf); Cause unknown; Type unknown; Additional info: Follow up chf and respiratory failure TECHNIQUE: Imaging protocol: Radiologic exam of the chest. Views: 1 view. COMPARISON: CR XR chest 1V portable [id number] 01/21/2025 9:06 AM FINDINGS: Tubes, catheters and devices: An endotracheal tube is placed with its tip 2.6 cm from the alli. A nasogastric tube is present with its tip at least in the proximal stomach. Lungs: See Heart/Mediastinum finding. Pleural spaces: Small bilateral pleural effusions obscure the hemidiaphragms. Heart/Mediastinum: The cardiac silhouette is at the upper limits of normal. There is prominence and mild redistribution of the pulmonary vasculature, findings suggesting cardiac decompensation. Bones/joints: Unremarkable. XR/XR chest 1V portable [id number] IMPRESSION: 1. Mildly prominent cardiac silhouette, mild prominence of redistribution of the pulmonary vasculature and bilateral basilar pleural effusions suggest cardiac decompensation or volume overload. 2. Endotracheal tube tip 2.6 cm from the alli. 3. Nasogastric tube with tip at least the proximal stomach.
[2025-01-22] MEDS: meropenem 1,000 mg SDV 1000 MG IVP ×3 (08:57→23:29)
[2025-01-22] MEDS: potassium phosphate (mMol PO4) 15 MMOL in sodium chloride 0.9% (100 ml) 100 ML 47 MMOL IV (10:12)
[2025-01-22] MEDS: pantoprazole 40 mg SDV IVP ×2 (10:49→23:28)
--- NOTE | 2025-01-22 10:50 | PM.PN ---
Subjective Subjective: Partha Roe is a 65 year old male COPD, sarcoidosis diagnosed in 2018, biopsy-proven on 20 mg of prednisone since then attempting to wean off gets admitted to the hospital with worsening shortness of breath was placed on BiPAP and I was consulted for further management Patient was gradually weaned off of prednisone. CT scan done recently does not have any evidence of any lung nodules or evidence of sarcoidosis. He was on albuterol and Trelegy for his COPD. Outpatient labs showed normal alpha-1 antitrypsin levels, TERRA and ESR levels are normal This admission patient comes to the ER with fever weakness and low blood pressure. Patient had had leg cellulitis for the last 2 days becoming woozy and foul-smelling. He was found to be in septic shock and admitted to the hospital. Fluid bolus given. Empirically started on IV IV vancomycin and meropenem. Creatinine was found to be elevated at 1.7. Patient was also treated for COPD Exacerbation with Pulmicort twice daily and DuoNebs every 6 hours Labs were consistent with white count of 19. ABG shows a pH of 7.23, pCO2 of 41 we will start her on BiPAP and tolerating it well. CT chest showed no PE and some bibasilar infiltrates in the dependent portion of the chest possible pneumonia mucous plugging bilateral lower lobes. 01/20/2025 Patient decompensated last night and had to be urgently intubated. Became more dyspneic prior to intubation. Respiratory rate went up to 21 prior to intubation and became lethargic. Did not need pressors. Currently on tidal volume of 370 mL, respiratory rate of 14 FiO2 of 30%. On propofol and fentanyl drips for sedation. 01/21/2025 Patient is on the ventilator tolerating tidal volume of 370 mL, FiO2 of 30%. Satting 96% peripherally. On propofol at 50 and fentanyl at 75 mics. Getting free water flushes. 01/22/2025 Tolerating ventilator well. PF ratio is improved to 300s but mentation is not appropriate yet. On Versed and fentanyl drips Review of systems-cannot be obtained patient is intubated and sedated Vitals/I&O/Wt Last Vital Signs Temp 98.1 F 01/22/25 08:00 Pulse 101 H 01/22/25 10:30 Resp 10 L 01/22/25 09:58 BP 143/76 01/22/25 10:30 Pulse Ox 96 01/22/25 10:30 O2 Del Method Mechanical Ventilation 01/22/25 10:00 O2 Flow Rate 3 01/19/25 00:30 FiO2 30 01/22/25 10:00 01/21/25 01/22/25 01/22/25 22:59 06:59 14:59 Intake Total 748.848 / 1038.848 479.281 / 1518.129 78.271 / 78.271 Output Total 625 / 625 200 / 825 Balance 123.848 / 413.848 279.281 / 693.129 78.271 / 78.271 Weight last 48 hrs Weight 169 lb 12.095 oz Weight 170 lb 10.205 oz Physical Exam Narrative: per RN General: Obese laying in bed intubated sedated HEENT: conj clear, EOMI, PERRL Neck: supple Pulmonary: Diminished breath sounds bilaterally Cardiovascular: rrr, nl s1s2, no mrg Abdomen: soft, nt, nd, no r/g, Extremities: pulses +, Skin: Bilateral lower legs cellulitis noted, arms also seem to be seeping and oozing. Neurologic: grossly intact Agree with above exam Urinary Catheter Management: Plaza: Cath Placed During This Visit: no Reason for Continuing Indwelling Catheter: Accurate Measurement of Urinary Output in Critically Ill Patients Data 01/22/25 03:37 01/22/25 03:37 Micro: Microbiology 01/16/25 16:20 Blood Culture - Final Blood Staphylococcus epidermidis 01/16/25 16:21 Blood Culture - Final Blood NO GROWTH AFTER 5 DAYS 01/19/25 18:55 Gram Stain - Final Sputum - Endotracheal Tube Aspirate Sputum Culture - Preliminary A&P Assessment and plan 1. COPD (chronic obstructive pulmonary disease): Plan: # Septic shock-most likely due to bilateral lower extremity cellulitis as well as pneumonia -Patient's lower extremities are most likely the source of his sepsis although pneumonia sputum cultures pending obtain 01/22/2025 -Urine cultures positive for Klebsiella 01/16/2025 - Endorgan damage is renal as well as hemodynamic collapse - Continue broad-spectrum antibiotics with vancomycin and meropenem -Fluids off - Levo has been off. - Labs reviewed-01/21/2025-white count is 9.14, sodium normalized 143, potassium 2.2 creatinine 1.1. # Bilateral lower leg extremity cellulitis Plan as above, wound dressing changes daily-discussed with nurse about possibly wrapping his arms as well. # Acute on chronic hypercapnic/hypoxic respiratory failure -Continue ventilator on low tidal volumes ventilation strategy per [facility] protocol. Showed 4 tidal volume around 350. Discussed with RT. Currently on 370 mL, except permissive hypercapnia. Current pH of 7.39, pCO2 of 44, ABG 95.5 PaO2, PF ratio 318. - Chest x-ray reviewed-suggestive of pulmonary vascular congestion. Urine output 1800 mL Continue DuoNebs along with PulCarolyn bhatti added -Continue steroids-increase to 125 Solu-Medrol Q8 -Reviewed notes from anesthesia. 8 ET tube placed, succinylcholine and etomidate given for intubation. Patient was found to be hypoxic and sats at lower 80s # Hypernatremia - Lasix IV 40 mg twice daily. Good urine output. -Labs reviewed sodium is 147 today 01/22/2025 # Hypokalemia Potassium reviewed today, 3 4.9. Replacement protocol ongoing. # Acute COPD exacerbation -Continue bronchodilators, steroids -Continue ventilator and wean off as tolerated # Probable bilateral pneumonia -CT scan reviewed did not show any PE but did show mucous plugging in the bilateral lower lobes suggestive of pneumonia close to the diaphragm -Antibiotics as above- -Urine growing gram-negative rods but may not be true UTI recommend changing catheter and checking another UA. All others NGTD. Staph epi in 1 out of 2 blood cultures most likely contaminant NGTD 01/22/2025 other than Klebsiella in urine # Bilateral lower leg cellulitis-severe -Currently covered with vancomycin and meropenem. Good anaerobic and beta-lactam coverage as well. -Wrapping legs and arms in place. Appreciate Dr. Mensah' help. # History of PE -On full dose Lovenox currently to replace per home dose Eliquis. Hemoglobin stable at 8. Okay to start Eliquis tomorrow. # Lethargy Patient is on propofol and fentanyl drip as well as getting oxycodone and morphine as needed I have instructed nurse to wean off drips in order to assess neurostatus. May need only Precedex drip if he has any agitation issues. Use as needed Versed and fentanyl. Sedation vacation today. CT head done today I reviewed the results personally and interpreted no acute stroke seen. # Mucous plugging -Continue DuoNebs and bronchodilators with steroids. Continue Mucinex to help mobilize secretions. # Obesity # Sarcoidosis -Not active at this time. Recent TERRA and ESR labs were low when last checked in clinic recently. # MICHELLE -Improved. Creatinine is 1.2 # Acute lactic acidosis -Improved # Anemia -most likely sepsis induced. Not seeing any obvious source of bleeding currently. he is Hemoccult positive but not actively bleeding. Agree with Protonix 40 mg IV twice daily, will start anticoagulation for tomorrow # Hypoalbuminemia -Agree with albumin 25 mg IV as needed Maintenance meds -Maintain glucose levels and keep blood glucose 140-180. Avoid hypoglycemia. Low-dose sliding scale in place. start tube feeds tomorrow-Place Dobbhoff -DVT GI prophylaxis with protonix. Due to cellulitis SCDs cannot be placed leg wrappings ongoing Full code Goals of care discussion-discussed case with who is at bedside today on 01/20/2025,01/21. She is agreeable to the current plan of care. If he needs higher level of care her preference is to send patient to [place]. Currently his ventilator settings are not that high and we will continue current care here. She is agreeable and comfortable with the plan. The high probability of a clinically significant, sudden or life threatening deterioration of the patient's [Respiratory, sepsis] system(s) required my full and direct attention, intervention and personal management. The critical care time is as shown. This time is in addition to time spent performing any reported procedures but includes the following: [x] Data and vital sign review and interpretation [x] Patient assessment, examination and intervention [x] Documentation [x] Medication orders and management Critical Care Time (min): 45 Telemedicine Consent Patient seen today via Telemedicine by agreement and consent of patient.? Telemedicine technology used during the visit includes audio and, as available, review of images.? The patient encounter is appropriate and reasonable under the circumstances given the patient?s particular presentation at this time.? The patient has been advised of the potential risks and limitations of this mode of treatment (including but not limited to the absence of in-person examination) and has agreed to be treated in a remote fashion in spite of them.? Any, and all, of the patient?s/patient?s family?s questions on this issue have been answered and I have made no promises or guarantees to the patient. The patient has also been advised to contact this office for worsening conditions or problems, and seek emergency medical treatment and/or call 911 if the patient deems either necessary PDMP PDMP Reviewed: Not Reviewed Attestations Medical Necessity Statement*: Intubated on the ventilator Coding Level of Care Code Critical Care >/= 30 minutes Diagnoses COPD (chronic obstructive pulmonary disease) J44.9
[2025-01-22 12:12] LABS: ABG PCO2 44.0 mmHg (35-45); ABG PH Result 7.39 (7.35-7.45); Arterial Blood Gas Hematocrit 26.9 % (42-52); Blood Gas Allen Test Pos; Blood Gas Operator Identificat CAK; Blood Gas Sample Site Radial, left; Blood Gas Sample Type Arterial; HCO3 ABG 26.6 mmol/L (22-26); PEEP 6.0 cmH20; PO2 ABG 95.5 mmHg (80.0-100.0); PO2 FiO2 Ratio Arterial Blood 318
--- NOTE | 2025-01-22 12:55 | CT_ITS ---
WS: [id number] CT HEAD TECHNIQUE: Noncontrast CT of the head obtained from the skullbase to the vertex. CLINICAL INFORMATION: encephalopathy COMPARISON: MRI 2018 DLP: 810.[address] scans at [facility] use at least one of these dose optimization techniques: automated exposure control; mA and/or kV adjustment per patient size (includes targeted exams where dose is matched to clinical indication); or iterative reconstruction. FINDINGS: No evidence of intracranial hemorrhage or mass effect. Ventricular system and basal cisterns are patent. Moderate small vessel changes with moderate parenchymal volume loss. No extra-axial fluid collections. No evidence of mass or mass effect. Vascular calcification. 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 Mild mucosal thickening in the paranasal sinuses. RIGHT mastoid effusion. CT/CT head wo con* 85250 IMPRESSION: 1. No evidence of intracranial hemorrhage or mass effect. 2. Moderate small vessel changes. Moderate parenchymal volume loss. 3. Chronic infarct in the RIGHT parietal vertex with encephalomalacia unchange d since 2018. 4. Vascular calcification.
--- NOTE | 2025-01-22 13:29 | PC.NURSE ---
Scanned bladder, 560mL noted. Irrigated bladder using sterile technique. Large amount of sediment noted. Plaza cath flowing freely. Tolerated well.
[2025-01-22] MEDS: dexmedeTOMIDine 0.9 % NaCL 400 MCG/100 ML PREMIX IV (13:47)
--- NOTE | 2025-01-22 14:05 | P.PN_ITS ---
Subjective 2 Subjective: Partha Roe is a 65 year old male COPD, sarcoidosis diagnosed in 2018, biopsy-proven on 20 mg of prednisone since then attempting to wean off gets admitted to the hospital with worsening shortness of breath was placed on BiPAP worsened and required intubation on 01/19/2025 Priscilla at bedside states that patient was wanting the BiPAP because he could not breathe but BiPAP was not helping enough leading to intubation. Since then he has been on propofol and fentanyl drips for sedation but remains tachycardic Patient today found to have obstructed catheter which was flushed of sediment and he returned 900 cc. He had been having poor response to increasing dose of diuretics and worsening kidney injury Yesterday patient was purposeful and today he does awaken and open eyes briefly but does not keep them open to command. He does not squeeze my hands to command. Dr. Freed has ordered a CT of the head. Patient was markedly tachycardic yesterday improved with beta-farhat. Now tachycardic and off propofol. Precedex has been ordered which should be effective Vitals/I&O/Wt Last Vital Signs Temp 98.1 F 01/22/25 12:00 Pulse 105 H 01/22/25 12:00 Resp 9 L 01/22/25 13:23 BP 135/76 01/22/25 12:00 Pulse Ox 96 01/22/25 13:23 O2 Del Method Mechanical Ventilation 01/22/25 12:00 O2 Flow Rate 3 01/19/25 00:30 FiO2 30 01/22/25 13:23 01/21/25 01/22/25 01/22/25 22:59 06:59 14:59 Intake Total 748.848 / 1038.848 479.281 / 1518.129 205.879 / 205.879 Output Total 625 / 625 200 / 825 900 / 900 Balance 123.848 / 413.848 279.281 / 693.129 -694.121 / -694.121 Weight last 48 hrs Weight 77 kg Weight 77.4 kg Physical Exam 2 Narrative: General well-developed well-nourished male on the vent abdominal breathing heart rate 111 CV regular tachycardic rate and rhythm no loud murmur Lungs clear on vent with poor air movement Abdomen diminished bowel tones soft nontender Calves 1+edema arms 2+ right arm edema 1+ left there are signs of chronic venous stasis in the arms. Legs are in Unna boot Urinary Catheter Management: Plaza: Cath Placed During This Visit: no Reason for Continuing Indwelling Catheter: Accurate Measurement of Urinary Output in Critically Ill Patients Data 01/22/25 03:37 01/22/25 03:37 Micro: Microbiology 01/19/25 18:55 Gram Stain - Final Sputum - Endotracheal Tube Aspirate Sputum Culture - Final 01/16/25 16:20 Blood Culture - Final Blood Staphylococcus epidermidis 01/16/25 16:21 Blood Culture - Final Blood NO GROWTH AFTER 5 DAYS A&P Assessment and plan 1. Acute respiratory failure: Requiring mechanical ventilation currently pressure support 10 PEEP 6 FiO2 30% tidal volume 661 Vent settings per pulmonary Continue DuoNebs Pulmicort provide a added Pulmonary increased steroids to 125 Solu-Medrol Q6. Patient still volume overloaded but had debris obstructed Plaza now corrected by GENARO Villagran 2. Severe sepsis: Patient on vancomycin and meropenem for bilateral lower extremity cellulitis severe this will also cover probable pneumonia and urine is growing gram- negative rods Klebsiella which is sensitive 3. Bilateral lower leg cellulitis: Dr. Noel has patient in a boot 4. High anion gap metabolic acidosis: Continue with diuresis. Effect should be better now with Plaza debris relieved 5. Chronic diastolic heart failure: Continue furosemide to 40 mg every 8 hours and give a dose of metolazone 5 mg x 1 albumin is 3.6 6. Centrilobular emphysema: Carries a diagnosis of sarcoidosis. Please see Dr. Freed's note regarding this diagnosis 7. History of pulmonary embolism: Patient takes Eliquis 5 mg twice daily chronically Currently on Lovenox full dose 8. Type 2 diabetes mellitus without complication, without long-term current use of insulin: Blood sugars running 220-270 will increase Lantus Plan: Continue current management. Greatly appreciate assistance with pulmonary critical care. PDMP PDMP Reviewed: Not Reviewed Attestations 2 Medical Necessity Statement*: Patient is intubated and actively diuresed with weaning trials daily. He will require greater than 2 midnights in hospital Coding Level of Care Code 02149 Diagnoses Acute respiratory failure J96.00 Severe sepsis A41.9; R65.20 Bilateral lower leg cellulitis L03.116; L03.115 High anion gap metabolic acidosis E87.29 Chronic diastolic heart failure I50.32 Centrilobular emphysema J43.2 COPD type: emphysema Emphysema type: centrilobular History of pulmonary embolism Z86.711 Type 2 diabetes mellitus without complication, without long-term current use of insulin E11.9 Diabetes mellitus [facility] insulin use: without assistant terminal manager use Diabetes mellitus complication status: without complication Time Spent (min) 40
[2025-01-22] MEDS: insulin glargine 100 units/1 mL 25 UNIT SUBCUT ×2 (15:12→21:23)
--- NOTE | 2025-01-22 23:45 | PC.NURSE ---
Metoprolol: Pt HR currently 88 due to precedex gtt @ 0.5 mcg/kg/hr , Dr. Chapman notified of 5mg IVP metoprolol due that is scheduled Q4H. Per Dr. Chapman, reduce dose to 2 mg IVP metoprolol Q6H scheduled.
[2025-01-22] MEDS: metoprolol tartrate 1 mg/1 mL SDV 5 mL 2 MG IVP (23:50)
[2025-01-23] VITALS (60 sets, daily range): BP systolic 117–186; BP diastolic 65–105; PULSE 81–127; RESP 7–19; TEMP 37.2–37.8; O2SAT 93–99
[2025-01-23] MEDS: dexmedeTOMIDine 0.9 % NaCL 400 MCG/100 ML PREMIX 9.63 MCG IV (01:35)
[2025-01-23] MEDS: potassium chloride oral liq 20 mEq/15 mL UDC PO (04:03)
[2025-01-23] MEDS: metoprolol tartrate 1 mg/1 mL SDV 5 mL 2 MG IVP ×3 (04:03→17:33)
[2025-01-23] MEDS: methylPREDNISolone sod succ 125 mg/2 mL INJ IVP ×4 (04:04→21:43)
[2025-01-23] MEDS: FUROsemide 10 mg/mL SDV 4mL 40 MG IVP (04:04)
[2025-01-23 04:13] LABS: Hematocrit 27.6 % (37-53); Hemoglobin 8.40 g/dL (11.27-16.99); Mean Corpuscular HGB Conc 30.4 g/dL (30-55); Mean Corpuscular Hemoglobin 30.5 pg (27-33); Mean Corpuscular Volume 100.4 fl (82-101); Nucleated Red Blood Cells % 0.3 %; Platelet Count 265 10^3/cmm (157-399); Red Blood Count 2.75 10^6/uL (3.85-5.65); White Blood Count 9.58 10^3/uL (3.29-11.43)
[2025-01-23] MEDS: chlorhexidine gluconate 4% Btl 118 mL 1 APPLIC TOPICAL (04:30)
[2025-01-23 04:37] LABS: Magnesium 2.8 mg/dL (1.7-2.3)
[2025-01-23 04:38] LABS: Alanine Aminotransferase 19 U/L (0-41); Albumin Level 3.6 g/dL (3.5-5.2); Alkaline Phosphatase 135 U/L (40-130); Anion Gap 17.6 (5-19); Aspartate Amino Transferase 9 U/L (0-40); Blood Urea Nitrogen 71 mg/dL (8-23); Calcium 9.0 mg/dL (8.5-10.5); Carbon Dioxide 29 mmol/L (22-29); Chloride 109 mmol/L (98-107); Creatinine Clr Calc Pharmacy 59.1046; Globulin 1.5 g/dL (1.3-4.6); Glucose 271 mg/dL (65-115); Osmolality Calculated 344 mOsm/kg (285-295); Potassium 3.6 mmol/L (3.5-5.1); Sodium 152 mmol/L (136-145); Total Protein 5.1 g/dL (6.6-8.7)
[2025-01-23] MEDS: sucralfate 1 gm/10 mL Oral Liq UDC PO ×4 (06:27→21:43)
[2025-01-23] MEDS: ARFORMOTEROL 15 MCG/2 ML NEB INHALATION ×2 (08:08→20:09)
[2025-01-23] MEDS: meropenem 1,000 mg SDV 1000 MG IVP ×2 (08:10→15:56)
--- NOTE | 2025-01-23 08:23 | PM.PN ---
Subjective Subjective: Partha Roe is a 65 year old male COPD, sarcoidosis diagnosed in 2018, biopsy-proven on 20 mg of prednisone since then attempting to wean off gets admitted to the hospital with worsening shortness of breath was placed on BiPAP worsened and required intubation on 01/19/2025 Priscilla at bedside states that patient was wanting the BiPAP because he could not breathe but BiPAP was not helping enough leading to intubation. Since then he has been on propofol and fentanyl drips for sedation but remains tachycardic Patient today found to have obstructed catheter which was flushed of sediment and he returned 900 cc. He had been having poor response to increasing dose of diuretics and worsening kidney injury Patient following commands since last night. Overdiuresed based on labs so diuretics held free water increased. I spoke with GENARO Ferrari and she states rate still at 20 though order was given this morning and H2O flushes have been started Vitals/I&O/Wt Last Vital Signs Temp 99.4 F 01/23/25 04:00 Pulse 103 H 01/23/25 08:00 Resp 13 01/23/25 08:00 BP 130/68 01/23/25 06:00 Pulse Ox 96 01/23/25 08:00 O2 Del Method Mechanical Ventilation 01/23/25 08:00 O2 Flow Rate 3 01/19/25 00:30 FiO2 30 01/23/25 08:00 01/22/25 01/23/25 01/23/25 22:59 06:59 14:59 Intake Total 384.639 / 707.202 451.938 / 1159.140 Output Total 775 / 1675 1900 / 3575 Balance -390.361 / -967.798 -1448.062 / -2415.860 Weight last 48 hrs Weight 77.5 kg Weight 77 kg Physical Exam Narrative: General well-developed well-nourished male on the vent comfortable heart rate 100 Pupils sluggish 2-1/2 mm CV regular tachycardic rate and rhythm no loud murmur Lungs clear on vent with poor air movement Abdomen diminished bowel tones soft nontender Calves 1+edema arms 2+ right arm edema 1+ left there are signs of chronic venous stasis in the arms. Legs are in Unna boot and almost no swelling of the legs Neuro patient is able to squeeze my fingers on either hand but is nonspecific and he pushes with his arms at the same time requires redirection Urinary Catheter Management: Plaza: Cath Placed During This Visit: no Reason for Continuing Indwelling Catheter: Accurate Measurement of Urinary Output in Critically Ill Patients Data 01/23/25 03:47 01/23/25 03:47 Micro: Microbiology 01/19/25 18:55 Gram Stain - Final Sputum - Endotracheal Tube Aspirate Sputum Culture - Final 01/16/25 16:20 Blood Culture - Final Blood Staphylococcus epidermidis A&P Assessment and plan 1. Acute respiratory failure: Requiring mechanical ventilation currently pressure support 10 PEEP 6 FiO2 30% tidal volume 661 Vent settings per pulmonary Continue DuoNebs Pulmicort provide a added Pulmonary increased steroids to 125 Solu-Medrol Q6. Patient diuresed well after Plaza debris was cleared. He is prerenal azotemic and hyponatremic. Hold furosemide for now we will give back free water down NG tube 2. Severe sepsis: Patient on vancomycin and meropenem for bilateral lower extremity cellulitis severe this will also cover probable pneumonia and urine is growing gram-negative rods Klebsiella which is sensitive MRSA screen from 1016 was negative I am going to discontinue the vancomycin 3. Bilateral lower leg cellulitis: Dr. Noel has patient in a boot continue meropenem vancomycin is discontinued 4. Chronic diastolic heart failure: Overdiuresed and will hold furosemide now give back free water. Patient only had 1 dose of metolazone on the 5. Centrilobular emphysema: Carries a diagnosis of sarcoidosis. Please see Dr. Freed's note regarding this diagnosis 6. History of pulmonary embolism: Patient takes Eliquis 5 mg twice daily chronically Currently on Lovenox full dose 7. Type 2 diabetes mellitus without complication, without long-term current use of insulin: Blood sugars running 220-270 will increase Lantus further and additional dose this morning Plan: Vancomycin discontinued add free water hold diuretics increase insulin PDMP PDMP Reviewed: Not Reviewed Attestations Medical Necessity Statement*: Patient jason intubated in ICU and will require greater than 2 midnights Coding Level of Care Code 55049 Diagnoses Acute respiratory failure J96.00 Severe sepsis A41.9; R65.20 Bilateral lower leg cellulitis L03.116; L03.115 Chronic diastolic heart failure I50.32 Centrilobular emphysema J43.2 COPD type: emphysema Emphysema type: centrilobular History of pulmonary embolism Z86.711 Type 2 diabetes mellitus without complication, without long-term current use of insulin E11.9 Diabetes mellitus complication status: without complication Diabetes mellitus [facility] insulin use: without petroleum terminal 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 Time Spent (min) 35
[2025-01-23] MEDS: insulin glargine 100 units/1 mL 25 UNIT SUBCUT ×2 (10:54→17:32)
[2025-01-23] MEDS: pantoprazole 40 mg SDV IVP (10:54)
[2025-01-23] MEDS: dexmedeTOMIDine 0.9 % NaCL 400 MCG/100 ML PREMIX 7.7 MCG IV (11:35)
--- NOTE | 2025-01-23 12:47 | PC.SOCIAL ---
IMM Update pg 2 of IMM Updated and reviewed w/ patients . Patient remains intubated. Copy provided and copy dated, initialed and placed in chart.
[2025-01-23] MEDS: midazolam 1 mg/mL INJ 2 mL 6 MG IVP (12:54)
[2025-01-23] MEDS: fentaNYL 50 mcg/mL INJ 2mL 100 MCG IVP (12:55)
--- NOTE | 2025-01-23 12:55 | P.PN_ITS ---
Subjective 2 Subjective: Partha Roe is a 65 year old male COPD, sarcoidosis diagnosed in 2018, biopsy-proven on 20 mg of prednisone since then attempting to wean off gets admitted to the hospital with worsening shortness of breath was placed on BiPAP and I was consulted for further management Patient was gradually weaned off of prednisone. CT scan done recently does not have any evidence of any lung nodules or evidence of sarcoidosis. He was on albuterol and Trelegy for his COPD. Outpatient labs showed normal alpha-1 antitrypsin levels, TERRA and ESR levels are normal This admission patient comes to the ER with fever weakness and low blood pressure. Patient had had leg cellulitis for the last 2 days becoming woozy and foul-smelling. He was found to be in septic shock and admitted to the hospital. Fluid bolus given. Empirically started on IV IV vancomycin and meropenem. Creatinine was found to be elevated at 1.7. Patient was also treated for COPD Exacerbation with Pulmicort twice daily and DuoNebs every 6 hours Labs were consistent with white count of 19. ABG shows a pH of 7.23, pCO2 of 41 we will start her on BiPAP and tolerating it well. CT chest showed no PE and some bibasilar infiltrates in the dependent portion of the chest possible pneumonia mucous plugging bilateral lower lobes. 01/20/2025 Patient decompensated last night and had to be urgently intubated. Became more dyspneic prior to intubation. Respiratory rate went up to 21 prior to intubation and became lethargic. Did not need pressors. Currently on tidal volume of 370 mL, respiratory rate of 14 FiO2 of 30%. On propofol and fentanyl drips for sedation. 01/21/2025 Patient is on the ventilator tolerating tidal volume of 370 mL, FiO2 of 30%. Satting 96% peripherally. On propofol at 50 and fentanyl at 75 mics. Getting free water flushes. 01/22/2025 Tolerating ventilator well. PF ratio is improved to 300s but mentation is not appropriate yet. On Versed and fentanyl drips 01/23/2025 Patient still has a lot of thick secretions via ET tube. Chest x-ray showed pulmonary vascular congestion although could be pneumonia as well. Bronchoscopy performed today. Good urine output. Review of systems-cannot be obtained patient is intubated and sedated Vitals/I&O/Wt Last Vital Signs Temp 99.4 F 10/22/25 04:00 Pulse 109 H 01/23/25 11:45 Resp 19 H 01/23/25 11:33 BP 133/73 01/23/25 10:30 Pulse Ox 98 01/23/25 11:33 O2 Del Method Mechanical Ventilation 01/23/25 11:33 O2 Flow Rate 3 01/19/25 00:30 FiO2 30 01/23/25 11:33 01/22/25 01/23/25 01/23/25 22:59 06:59 14:59 Intake Total 384.639 / 707.202 451.938 / 1159.140 46.987 / 46.987 Output Total 775 / 1675 1900 / 3575 Balance -390.361 / -967.798 -1448.062 / -2415.860 46.987 / 46.987 Weight last 48 hrs Weight 170 lb 13.732 oz Weight 169 lb 12.095 oz Physical Exam 2 Narrative: per RN General: Intubated sedated HEENT: conj clear, EOMI, PERRL Neck: supple Pulmonary: Diminished breath sounds bilaterally Cardiovascular: rrr, nl s1s2, no mrg Abdomen: soft, nt, nd, no r/g, Extremities: pulses +, 2+ pedal edema Skin: Weeping skin lesions noted Neurologic: grossly intact Agree with above exam Urinary Catheter Management: Plaza: Cath Placed During This Visit: no Reason for Continuing Indwelling Catheter: Accurate Measurement of Urinary Output in Critically Ill Patients Data 01/23/25 03:47 01/23/25 03:47 Micro: Microbiology 01/19/25 18:55 Gram Stain - Final Sputum - Endotracheal Tube Aspirate Sputum Culture - Final 01/16/25 16:20 Blood Culture - Final Blood Staphylococcus epidermidis A&P Assessment and plan 1. COPD (chronic obstructive pulmonary disease): Plan: # Septic shock-most likely due to bilateral lower extremity cellulitis as well as pneumonia -Patient's lower extremities are most likely the source of his sepsis although pneumonia sputum cultures pending obtain 01/23/2025 -Urine cultures positive for Klebsiella 01/16/2025 - Endorgan damage is renal as well as hemodynamic collapse - Continue broad-spectrum antibiotics with meropenem -Fluids off - Levo has been off. - Labs reviewed-01/21/2025-white count is 9.14, sodium normalized 143, potassium 2.2 creatinine 1.1. # Bilateral lower leg extremity cellulitis Plan as above, wound dressing changes daily-discussed with nurse about possibly wrapping his arms as well. Some some areas on the right forearm look a little worse. Dressing changes per Dr. Noel # Acute on chronic hypercapnic/hypoxic respiratory failure -Continue ventilator on low tidal volumes ventilation strategy per ARDS protocol. low tidal volume strategy around 350 mL tidal volume. Discussed with RT. Accept permissive hypercapnia. Current pH of 7.39, 44, 95.5 EF of 318 - Chest x-ray reviewed-suggestive of pulmonary vascular congestion. Urine output 2500 mL Continue DuoNebs along with Pulmicort, Brovana continue -Continue steroids-increase to 125 Solu-Medrol Q8 wean off to prednisone daily -Reviewed notes from anesthesia. 8 ET tube placed, succinylcholine and etomidate given for intubation. Chest x-ray tomorrow morning # Hypernatremia - Lasix discontinued good urine output in spite of -Labs reviewed sodium is 147 today 01/22/2025 # Hypokalemia Potassium reviewed today, 3 4.9. Replacement protocol ongoing. # Acute COPD exacerbation -Continue bronchodilators, steroids -Continue ventilator and wean off as tolerated # Probable bilateral pneumonia -CT scan reviewed did not show any PE but did show mucous plugging in the bilateral lower lobes suggestive of pneumonia close to the diaphragm -Antibiotics as above- -Urine growing gram-negative rods but may not be true UTI recommend changing catheter and checking another UA. All others NGTD. Staph epi in 1 out of 2 blood cultures most likely contaminant NGTD 01/22/2025 other than Klebsiella in urine -Status post bronchoscopy 01/23/2025-BAL from bilateral lower lobes collected and sent for cultures. Frothy secretions noted on clear mother congestive heart failure versus pneumonia or combination of both. Airways look very edematous and boggy # Bilateral lower leg cellulitis-severe -Currently covered with meropenem. Good anaerobic and beta-lactam coverage as well. Vancomycin discontinued today 01/23/2025 -Wrapping legs and arms in place. Appreciate Dr. Mensah' help. # History of PE -On full dose Lovenox currently to replace per home dose Eliquis. Hemoglobin stable at 8. Okay to start Eliquis # Lethargy Patient is on propofol and fentanyl drip as well as getting oxycodone and morphine as needed I have instructed nurse to wean off drips in order to assess neurostatus. May need only Precedex drip if he has any agitation issues. Use as needed Versed and fentanyl. Sedation vacation daily. CT head 01/22/2025-no acute stroke noted # Mucous plugging -Continue DuoNebs and bronchodilators with steroids. Continue Mucinex to help mobilize secretions. Will start Robinul # Obesity # Sarcoidosis -Not active at this time. Recent TERRA and ESR labs were low when last checked in clinic recently. # MICHELLE -Improved. Creatinine is 1.2 # Acute lactic acidosis -Improved # Hypernatremia - Will start D5W # Anemia -most likely sepsis induced. Not seeing any obvious source of bleeding currently. he is Hemoccult positive but not actively bleeding. Agree with Protonix 40 mg IV twice daily, will start anticoagulation for tomorrow # Hypoalbuminemia -Agree with albumin 25 mg IV as needed Maintenance meds -Maintain glucose levels and keep blood glucose 140-180. Avoid hypoglycemia. Low-dose sliding scale in place. start tube feeds tomorrow-Place Dobbhoff -DVT GI prophylaxis with protonix. Due to cellulitis SCDs cannot be placed leg wrappings ongoing Full code Goals of care discussion-discussed case with who is at bedside today on 01/20/2025,01/21. She is agreeable to the current plan of care. If he needs higher level of care her preference is to send patient to [facility]. Currently his ventilator settings are not that high and we will continue current care here. She is agreeable and comfortable with the plan. The high probability of a clinically significant, sudden or life threatening deterioration of the patient's [Respiratory, sepsis] system(s) required my full and direct attention, intervention and personal management. The critical care time is as shown. This time is in addition to time spent performing any reported procedures but includes the following: [x] Data and vital sign review and interpretation [x] Patient assessment, examination and intervention [x] Documentation [x] Medication orders and management Critical Care Time (min): 45 Telemedicine Consent Patient seen today via Telemedicine by agreement and consent of patient.? Telemedicine technology used during the visit includes audio and, as available, review of images.? The patient encounter is appropriate and reasonable under the circumstances given the patient?s particular presentation at this time.? The patient has been advised of the potential risks and limitations of this mode of treatment (including but not limited to the absence of in-person examination) and has agreed to be treated in a remote fashion in spite of them.? Any, and all, of the patient?s/patient?s family?s questions on this issue have been answered and I have made no promises or guarantees to the patient. The patient has also been advised to contact this office for worsening conditions or problems, and seek emergency medical treatment and/or call 911 if the patient deems either necessary PDMP PDMP Reviewed: Not Reviewed Attestations 2 Medical Necessity Statement*: Intubated sedated Coding Level of Care Code Critical Care >/= 30 minutes Diagnoses COPD (chronic obstructive pulmonary disease) J44.9
--- NOTE | 2025-01-23 13:27 | PC.RESP ---
bronch done with a mini bal sputum
--- NOTE | 2025-01-23 14:48 | P.OP_ITS ---
Procedure: Flexible bronchoscopy Attending: Jacinto Freed MD Indication: Bilateral lung infiltrates Medications: Lidocaine 2% (8 cc) applied to the tracheobronchial tree Anesthesia: General anesthesia per anesthesia team Procedure: Pre-Anesthesia Assessment [place] Protocol: Pre-procedure Verification: Prior to the procedure, the patient's identity was confirmed using full name, date of , and medical record number. Identity verification included a review of all relevant medical records, history, physical examination, medications, allergies, and previous anesthesia tolerance. Risks, benefits, sedation options, and associated risks were reviewed with the patient, and informed consent was obtained after addressing all questions. Time-Out: Immediately before the procedure, a time-out was conducted to confirm patient identification, procedure details, consent, image labeling, and the need for prophylactic antibiotics. This was verified by the physician, nurse, and RT. Outcome: The procedure was completed without difficulty, and the patient tolerated it well. Findings: A thorough airway exam was performed after passage of the bronchoscope. The trachea was anatomically normal. The right sided airway was anatomically normal without endobronchial lesions but obstructed with thick mucus plugs. Airway lining was boggy and edematous The left sided airway was anatomically normal without endobronchial lesions but obstructed with thick mucus plugs. Airway lining was boggy and edematous After confirming our location, we proceeded to sampling. A bronchoalveolar lavage was performed of the lobe containing the target lesion with 120mL of saline instilled and 40 mL of effluent returned. Additional rinse from the bronchoscope lumen was added to the sample after removal of the scope. ([id number]) [place] Bleeding Scale Grade 1: Suctioning <1 minute. Bleeding of no clinical consequence to patient or provider. Following completion of all diagnostic and therapeutic procedures, hemostasis was verified. The scope was removed and procedure concluded. In summary, the following procedures were performed: [id number] BAL, (Bronchoalveolar Lavage), Jacinto Freed MD Pulmonary and Critical Care
[2025-01-23] MEDS: fentaNYL 1,000 MCG/100 ML BAG 5 MCG IV (17:32)
[2025-01-23] MEDS: dexmedeTOMIDine 0.9 % NaCL 400 MCG/100 ML PREMIX 11.55 MCG IV (22:13)
[2025-01-24] VITALS (49 sets, daily range): BP systolic 116–165; BP diastolic 59–91; PULSE 83–121; RESP 9–18; TEMP 36.8–37.9; O2SAT 95–100
[2025-01-24] MEDS: meropenem 1,000 mg SDV 1000 MG IVP ×3 (00:06→16:14)
[2025-01-24] MEDS: pantoprazole 40 mg SDV IVP ×2 (00:07→11:13)
[2025-01-24] MEDS: metoprolol tartrate 1 mg/1 mL SDV 5 mL 2 MG IVP ×3 (00:07→11:22)
[2025-01-24] MEDS: chlorhexidine gluconate 4% Btl 118 mL 1 APPLIC TOPICAL (04:27)
[2025-01-24] MEDS: methylPREDNISolone sod succ 125 mg/2 mL INJ IVP (05:21)
[2025-01-24] MEDS: potassium chloride oral liq 20 mEq/15 mL UDC PO (05:22)
[2025-01-24 05:30] LABS: Anion Gap 15.3 (5-19); Blood Urea Nitrogen 70 mg/dL (8-23); Calcium 8.8 mg/dL (8.5-10.5); Carbon Dioxide 33 mmol/L (22-29); Chloride 112 mmol/L (98-107); Creatinine Clr Calc Pharmacy 88.9243; Glucose 284 mg/dL (65-115); Osmolality Calculated 355 mOsm/kg (285-295); Potassium 3.3 mmol/L (3.5-5.1); Sodium 157 mmol/L (136-145)
[2025-01-24 05:31] LABS: Magnesium 3.0 mg/dL (1.7-2.3)
[2025-01-24] MEDS: insulin glargine 100 units/1 mL 25 UNIT SUBCUT ×2 (05:55→17:27)
[2025-01-24] MEDS: sucralfate 1 gm/10 mL Oral Liq UDC PO ×4 (05:55→21:54)
[2025-01-24] MEDS: fentaNYL 1,000 MCG/100 ML BAG 5 MCG IV (06:19)
[2025-01-24] MEDS: dexmedeTOMIDine 0.9 % NaCL 400 MCG/100 ML PREMIX 7.7 MCG IV (06:26)
[2025-01-24] MEDS: ARFORMOTEROL 15 MCG/2 ML NEB INHALATION ×2 (08:29→20:23)
--- NOTE | 2025-01-24 08:55 | XR_ITS ---
WS: [id number] Portable AP supine chest, 01/24/2025 Clinical Data: pulmonary infiltrates Comparison: Portable chest, 01/22/2025 Findings: The pulmonary vascularity remains prominent. The heart is slightly enlarged. Small bilateral pleural effusions are present. There are no nodules or masses. The aortic arch shows tortuosity. The endotracheal tube remains above the alli nasogastric tube appears to end in the fundus of the stomach. There are right axillary surgical clips. Monitor leads are on the chest wall. XR/XR chest 1V portable [id number] Impression: 1. Mild cardiomegaly with pulmonary vascular congestion. 2. Bilateral pleural effusions. 3. Satisfactory position of endotracheal tube and nasogastric tube.
[2025-01-24] MEDS: polyethylene glycol 3350 Pkt 17 gm PO (09:24)
[2025-01-24] MEDS: dextrose 5% + KCl 20 mEq 20 MEQ/1,000 ML BAG 150 MEQ IV (09:44)
--- NOTE | 2025-01-24 10:03 | P.PN_ITS ---
Subjective 2 Subjective: Partha Roe is a 65 year old male COPD, sarcoidosis diagnosed in 2018, biopsy-proven on 20 mg of prednisone since then attempting to wean off gets admitted to the hospital with worsening shortness of breath was placed on BiPAP and I was consulted for further management Patient was gradually weaned off of prednisone. CT scan done recently does not have any evidence of any lung nodules or evidence of sarcoidosis. He was on albuterol and Trelegy for his COPD. Outpatient labs showed normal alpha-1 antitrypsin levels, TERRA and ESR levels are normal This admission patient comes to the ER with fever weakness and low blood pressure. Patient had had leg cellulitis for the last 2 days becoming woozy and foul-smelling. He was found to be in septic shock and admitted to the hospital. Fluid bolus given. Empirically started on IV IV vancomycin and meropenem. Creatinine was found to be elevated at 1.7. Patient was also treated for COPD Exacerbation with Pulmicort twice daily and DuoNebs every 6 hours Labs were consistent with white count of 19. ABG shows a pH of 7.23, pCO2 of 41 we will start her on BiPAP and tolerating it well. CT chest showed no PE and some bibasilar infiltrates in the dependent portion of the chest possible pneumonia mucous plugging bilateral lower lobes. 01/20/2025 Patient decompensated last night and had to be urgently intubated. Became more dyspneic prior to intubation. Respiratory rate went up to 21 prior to intubation and became lethargic. Did not need pressors. Currently on tidal volume of 370 mL, respiratory rate of 14 FiO2 of 30%. On propofol and fentanyl drips for sedation. 01/21/2025 Patient is on the ventilator tolerating tidal volume of 370 mL, FiO2 of 30%. Satting 96% peripherally. On propofol at 50 and fentanyl at 75 mics. Getting free water flushes. 01/22/2025 Tolerating ventilator well. PF ratio is improved to 300s but mentation is not appropriate yet. On Versed and fentanyl drips 01/23/2025 Patient still has a lot of thick secretions via ET tube. Chest x-ray showed pulmonary vascular congestion although could be pneumonia as well. Bronchoscopy performed today. Good urine output. 01/24/2025 Very minimal ETT secretions. Still very volume overloaded. Bronchoscopy done yesterday. Secretions. Mental status still not appropriate for extubation. On Precedex 0.5. Wakes up and follows commands but very weak still. Review of systems-cannot be obtained patient is intubated and sedated Vitals/I&O/Wt Last Vital Signs Temp 98.2 F 01/24/25 08:00 Pulse 90 01/24/25 08:50 Resp 9 L 01/24/25 09:50 BP 134/69 01/24/25 08:00 Pulse Ox 98 01/24/25 09:50 O2 Del Method Mechanical Ventilation 01/24/25 08:30 O2 Flow Rate 3 01/19/25 00:30 FiO2 30 01/24/25 09:50 01/23/25 01/24/25 01/24/25 22:59 06:59 14:59 Intake Total 610.833 / 657.820 813.750 / 1471.570 169.763 / 169.763 Output Total 600 / 600 1450 / 2050 Balance 10.833 / 57.820 -636.250 / -578.430 169.763 / 169.763 Weight last 48 hrs Weight 170 lb 13.732 oz Weight 170 lb 13.732 oz Physical Exam 2 Narrative: per RN General: Intubated sedated HEENT: conj clear, EOMI, PERRL Neck: supple Pulmonary: Diminished breath sounds bilaterally Cardiovascular: rrr, nl s1s2, no mrg Abdomen: soft, nt, nd, no r/g, Extremities: pulses +, 2+ pedal edema Skin: Weeping skin lesions noted Neurologic: grossly intact Agree with above exam Urinary Catheter Management: Plaza: Cath Placed During This Visit: yes Reason for Continuing Indwelling Catheter: Accurate Measurement of Urinary Output in Critically Ill Patients Urinary Catheter Date of Insertion: 01/23/25 Urinary Catheter Time of Insertion: 18:24 Data 01/23/25 03:47 01/24/25 04:00 Micro: Microbiology 01/23/25 13:05 Gram Stain - Final Other Source A&P Assessment and plan 1. COPD (chronic obstructive pulmonary disease): Plan: # Septic shock-most likely due to bilateral lower extremity cellulitis as well as pneumonia -Patient's lower extremities are most likely the source of his sepsis although pneumonia sputum cultures pending obtain 01/24/2025. Status post bronchoscopy 01/24/2025. No growth till today, cultures reviewed today personally. -Urine cultures positive for Klebsiella 01/16/2025 - Endorgan damage is renal as well as hemodynamic collapse - Continue broad-spectrum antibiotics with meropenem -Fluids off - Levo has been off. - Labs reviewed-01/21/2025-white count is 9.14, sodium normalized 143, potassium 2.2 creatinine 1.1. # Bilateral lower leg extremity cellulitis Plan as above, wound dressing changes daily-discussed with nurse about possibly wrapping his arms as well. Some some areas on the right forearm look a little worse. Dressing changes per Dr. Noel # Acute on chronic hypercapnic/hypoxic respiratory failure-most likely secondary to acute pulmonary edema although underlying pneumonia cannot be ruled out. -Continue ventilator on low tidal volumes ventilation strategy per ARDS protocol. low tidal volume strategy around 350 mL tidal volume. Discussed with RT. Accept permissive hypercapnia. Current pH of 7.39, 44, 95.5 EF of 318 - Chest x-ray reviewed-suggestive of pulmonary vascular congestion. Urine output 2000 mL Continue DuoNebs along with Pulmicort Brovana continue -Continue steroids-increase to 125 Solu-Medrol Q8 wean off to prednisone daily from today -Reviewed notes from anesthesia. 8 ET tube placed, succinylcholine and etomidate given for intubation. Chest x-ray tomorrow morning # Hypernatremia - Continue D5W drip-increased rate to 75 -Labs reviewed sodium is 147 today 01/22/2025 -Precedex seems to be the only medication after reviewing that could cause hyponatremia. Discussed case with pharmacist as well I will discontinue this today and work only with Versed and fentanyl pushes as needed. Will give 1 dose of Lasix 40 mg, appears to be very volume overloaded and has had pink frothy secretions on bronc suggestive of acute pulmonary edema # Hypokalemia Potassium reviewed today, 3 4.9. Replacement protocol ongoing. # Acute COPD exacerbation -Continue bronchodilators, steroids -Continue ventilator and wean off as tolerated # Probable bilateral pneumonia -CT scan reviewed did not show any PE but did show mucous plugging in the bilateral lower lobes suggestive of pneumonia close to the diaphragm -Antibiotics as above- -Urine growing gram-negative rods but may not be true UTI recommend changing catheter and checking another UA. All others NGTD. Staph epi in 1 out of 2 blood cultures most likely contaminant NGTD 01/22/2025 other than Klebsiella in urine -Status post bronchoscopy 01/23/2025-BAL from bilateral lower lobes collected and sent for cultures. Frothy secretions noted on clear mother congestive heart failure versus pneumonia or combination of both. Airways look very edematous and boggy-no growth till date reviewed today. # Bilateral lower leg cellulitis-severe -Currently covered with meropenem. Good anaerobic and beta-lactam coverage as well. Vancomycin discontinued 01/23/2025 -Wrapping legs and arms in place. Appreciate Dr. Mensah' help. # History of PE -On full dose Lovenox currently to replace per home dose Eliquis. Hemoglobin stable at 8. Okay to start Eliquis # Lethargy Patient is on propofol and fentanyl drip as well as getting oxycodone and morphine as needed I have instructed nurse to wean off drips in order to assess neurostatus. Use as needed Versed and fentanyl as needed pushes. Sedation vacation daily. CT head 01/22/2025-no acute stroke noted # Mucous plugging -Continue DuoNebs and bronchodilators with steroids. Continue Mucinex to help mobilize secretions. Continue Robinul # Obesity # Sarcoidosis -Not active at this time. Recent TERRA and ESR labs were low when last checked in clinic recently. # MICHELLE -Improved. Creatinine is 0.8 # Acute lactic acidosis -Improved # Anemia -most likely sepsis induced. Not seeing any obvious source of bleeding currently. he is Hemoccult positive but not actively bleeding. Agree with Protonix 40 mg IV twice daily, will start anticoagulation soon. # Hypoalbuminemia Maintenance meds -Maintain glucose levels and keep blood glucose 140-180. Avoid hypoglycemia. Low-dose sliding scale in place. start tube feeds tomorrow-Place Dobbhoff. Good bowel regimen -DVT GI prophylaxis with protonix. Due to cellulitis SCDs cannot be placed leg wrappings ongoing Full code Goals of care discussion-discussed case with who is at bedside today on 01/20/2025,01/21. She is agreeable to the current plan of care. If he needs higher level of care her preference is to send patient to [facility]. Currently his ventilator settings are not that high and we will continue current care here. She is agreeable and comfortable with the plan. The high probability of a clinically significant, sudden or life threatening deterioration of the patient's [Respiratory, sepsis] system(s) required my full and direct attention, intervention and personal management. The critical care time is as shown. This time is in addition to time spent performing any reported procedures but includes the following: [x] Data and vital sign review and interpretation [x] Patient assessment, examination and intervention [x] Documentation [x] Medication orders and management Critical Care Time (min): 45 Telemedicine Consent Patient seen today via Telemedicine by agreement and consent of patient.? Telemedicine technology used during the visit includes audio and, as available, review of images.? The patient encounter is appropriate and reasonable under the circumstances given the patient?s particular presentation at this time.? The patient has been advised of the potential risks and limitations of this mode of treatment (including but not limited to the absence of in-person examination) and has agreed to be treated in a remote fashion in spite of them.? Any, and all, of the patient?s/patient?s family?s questions on this issue have been answered and I have made no promises or guarantees to the patient. The patient has also been advised to contact this office for worsening conditions or problems, and seek emergency medical treatment and/or call 911 if the patient deems either necessary PDMP PDMP Reviewed: Not Reviewed Attestations 2 Medical Necessity Statement*: Intubated and sedated Coding Level of Care Code Critical Care >/= 30 minutes Diagnoses COPD (chronic obstructive pulmonary disease) J44.9
--- NOTE | 2025-01-24 13:00 | P.PN_ITS ---
Subjective 2 Subjective: Partha Roe is a 65 year old male COPD, sarcoidosis diagnosed in 2018, biopsy-proven on 20 mg of prednisone since then attempting to wean off gets admitted to the hospital with worsening shortness of breath was placed on BiPAP worsened and required intubation on 01/19/2025 after admission on 01/16/2025 and failed BiPAP Priscilla at bedside states that patient was wanting the BiPAP because he could not breathe but BiPAP was not helping enough leading to intubation. Tachycardia has improved with Precedex and off propofol all of yesterday but patient had apnea during his breathing trial up to 20 seconds then up to a minute. All sedation currently held. Patient is hypernatremic this morning sodium up to 154. I adjusted his tube feeds up in rate and stopped his steroids Patient following commands since last night. Overdiuresed based on labs so diuretics held free water increased. I spoke with GENARO Ferrari and she states rate still at 20 though order was given this morning and H2O flushes have been started Priscilla is present at bedside and updated Vitals/I&O/Wt Last Vital Signs Temp 100.2 F H 01/24/25 12:00 Pulse 108 H 01/24/25 12:00 Resp 12 01/24/25 12:00 BP 137/59 01/24/25 12:00 Pulse Ox 98 01/24/25 12:00 O2 Del Method Mechanical Ventilation 01/24/25 12:00 O2 Flow Rate 3 01/19/25 00:30 FiO2 30 01/24/25 12:00 01/23/25 01/24/25 01/24/25 22:59 06:59 14:59 Intake Total 610.833 / 657.820 813.750 / 1471.570 934.638 / 934.638 Output Total 600 / 600 1450 / 2050 Balance 10.833 / 57.820 -636.250 / -578.430 934.638 / 934.638 Weight last 48 hrs Weight 77.5 kg Weight 77.5 kg Physical Exam 2 Narrative: General well-developed well-nourished male on the vent comfortable heart rate 100 CV regular tachycardic rate and rhythm no loud murmur Lungs clear on vent with moderate air movement Abdomen diminished bowel tones soft nontender Calves trace edema arms 2+ right arm edema 1+ left there are signs of chronic venous stasis in the arms. Legs are in Unna boot and almost no swelling of the legs Neuro patient is able to squeeze my fingers bilaterally and raise his thumbs. He nods and shakes appropriately Urinary Catheter Management: Plaza: Cath Placed During This Visit: yes Reason for Continuing Indwelling Catheter: Accurate Measurement of Urinary Output in Critically Ill Patients Urinary Catheter Date of Insertion: 01/23/25 Urinary Catheter Time of Insertion: 18:24 Data 01/23/25 03:47 01/24/25 04:00 Micro: Microbiology 01/23/25 13:05 Gram Stain - Final Other Source A&P Assessment and plan 1. Acute hypernatremia: I think this is attributable to steroids and Precedex in the setting of diuresis. I have increased his free water and IV fluid with D5 W with 20 mg KCl per liter to run at 150 cc an hour for a liter and will check mini panel at 1300. Additionally Precedex stopped and free water increased and his tube feeds. Tube feed rate also increased 2. Pulmonary edema: Patient with pulmonary edema and difficult to diurese due to hyponatremia, Plaza was plugged improved now 3. Acute respiratory failure: Requiring mechanical ventilation currently pressure support 10 PEEP 6 FiO2 30% tidal volume 661 Vent settings per pulmonary. BAL was performed yesterday and mucous plugs removed. Patient remains over sedated but improving and likely to be able to perform weaning trials at least without apnea later today or by tomorrow Due to hyponatremia we have decreased the steroids to prednisone 40 mg daily. Patient diuresed well after Lpaza debris was cleared. He is prerenal azotemic and hyponatremic. Hold furosemide for now we will give back free water down NG tube 4. Severe sepsis: Resolved continue meropenem for Klebsiella 5. Bilateral lower leg cellulitis: Dr. Noel has patient in a boot continue meropenem vancomycin is discontinued 6. Chronic diastolic heart failure: Overdiuresed and will hold furosemide now give back free water. Patient only had 1 dose of metolazone on the 7. Centrilobular emphysema: Carries a diagnosis of sarcoidosis. Please see Dr. Freed's note regarding this diagnosis 8. History of pulmonary embolism: Patient takes Eliquis 5 mg twice daily chronically Currently on Lovenox full dose 9. Type 2 diabetes mellitus without complication, without long-term current use of insulin: Blood sugars running 220-270 will increase Lantus further and additional dose this morning Plan: Vancomycin discontinued add free water hold diuretics increase insulin PDMP PDMP Reviewed: Not Reviewed Attestations 2 Medical Necessity Statement*: Patient jason in hospital for ventilatory support of his respiratory failure and correction of his hyponatremia and we will crier greater than 2 midnights in the hospital Coding Level of Care Code 62540 Diagnoses Acute hypernatremia E87.0 Pulmonary edema J81.1 Acute respiratory failure J96.00 Severe sepsis A41.9; R65.20 Bilateral lower leg cellulitis L03.116; L03.115 Chronic diastolic heart failure I50.32 Centrilobular emphysema J43.2 COPD type: emphysema Emphysema type: centrilobular History of pulmonary embolism Z86.711 Type 2 diabetes mellitus without complication, without long-term current use of insulin E11.9 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
[2025-01-24 13:32] LABS: Anion Gap 14.8 (5-19); Blood Urea Nitrogen 66 mg/dL (8-23); Calcium 8.8 mg/dL (8.5-10.5); Carbon Dioxide 32 mmol/L (22-29); Chloride 110 mmol/L (98-107); Creatinine Clr Calc Pharmacy 88.9243; Glucose 285 mg/dL (65-115); Osmolality Calculated 345 mOsm/kg (285-295); Potassium 3.8 mmol/L (3.5-5.1); Sodium 153 mmol/L (136-145)
[2025-01-24] MEDS: metoprolol tartrate 1 mg/1 mL SDV 5 mL 5 MG IVP ×2 (15:04→21:54)
[2025-01-24] MEDS: dilTIAZem 5 mg/mL SDV 5 mL 10 MG IVP (18:47)
[2025-01-24] MEDS: morphine 4 mg/mL SDV 1 mL 2 MG IVP (21:34)
[2025-01-25] VITALS (38 sets, daily range): BP systolic 95–173; BP diastolic 55–96; PULSE 80–110; RESP 12–19; TEMP 36.4–37.1; O2SAT 96–100
[2025-01-25] MEDS: meropenem 1,000 mg SDV 1000 MG IVP ×3 (00:01→15:35)
[2025-01-25] MEDS: morphine 4 mg/mL SDV 1 mL 2 MG IVP ×3 (02:12→21:12)
[2025-01-25] MEDS: LORazepam 2 mg/mL INJ 1 mL (02:24)
--- NOTE | 2025-01-25 02:26 | PC.NURSE ---
Ativan: Unable to pull 0.5 ml (1 mg) vial of IVP ativan from ICU pyxis. GENARO Mcintyre overrode 1 ml (2mg) vial from med surg pyxis. Will call pharmacy in AM to address issue. Pt received 1 mg dose of IVP ativan as ordered in JUN.
--- NOTE | 2025-01-25 02:33 | PC.NURSE ---
Addendum entered by Samanta Angeles RN 01/25/25 03:40: Witness waste of 0.5mL/1mg of ativan. Original Note: Ativan: Unable to pull 0.5 ml (1 mg) vial of IVP ativan from ICU pyxis. GENARO Mcintyre overrode 1 ml (2mg) vial from med surg pyxis. Will call pharmacy in AM to address issue. Pt received 1 mg dose of IVP ativan as ordered in JUN. Wasted 0.5 ml (1 mg) with GENARO [place].
[2025-01-25] MEDS: dilTIAZem 5 mg/mL SDV 5 mL 10 MG IVP ×6 (03:10→22:36)
[2025-01-25 05:30] LABS: Anion Gap 11.8 (5-19); Blood Urea Nitrogen 54 mg/dL (8-23); Calcium 8.5 mg/dL (8.5-10.5); Carbon Dioxide 34 mmol/L (22-29); Chloride 108 mmol/L (98-107); Creatinine Clr Calc Pharmacy 142.2789; Glucose 193 mg/dL (65-115); Osmolality Calculated 330 mOsm/kg (285-295); Potassium 3.8 mmol/L (3.5-5.1); Sodium 150 mmol/L (136-145)
[2025-01-25] MEDS: potassium chloride oral liq 20 mEq/15 mL UDC PO (05:30)
[2025-01-25] MEDS: lactulose oral liq 20 gm/30 mL UDC 10 GM PO (05:30)
[2025-01-25] MEDS: polyethylene glycol 3350 Pkt 17 gm PO (05:30)
[2025-01-25] MEDS: metoprolol tartrate 1 mg/1 mL SDV 5 mL 5 MG IVP ×4 (05:31→22:33)
[2025-01-25 05:33] LABS: Magnesium 2.7 mg/dL (1.7-2.3)
[2025-01-25] MEDS: insulin glargine 100 units/1 mL 25 UNIT SUBCUT (05:35)
--- NOTE | 2025-01-25 06:14 | PC.NURSE ---
Addendum entered by Samanta Angeles RN 01/25/25 06:45: Witnessed waste of 90mL fentanyl. Original Note: Wasted 90 ml fentanyl with GENARO [place].
[2025-01-25] MEDS: ARFORMOTEROL 15 MCG/2 ML NEB INHALATION ×2 (07:47→20:13)
--- NOTE | 2025-01-25 08:36 | P.PN_ITS ---
Subjective 2 Subjective: Patient seen in ICU this morning at bedside. Intubated. Vitals/I&O/Wt Last Vital Signs Temp 97.6 F 01/25/25 04:00 Pulse 81 01/25/25 07:47 Resp 12 01/25/25 07:53 BP 151/81 01/25/25 06:00 Pulse Ox 98 01/25/25 07:53 O2 Del Method Mechanical Ventilation 01/25/25 07:47 O2 Flow Rate 3 01/19/25 00:30 FiO2 30 01/25/25 07:53 01/24/25 01/25/25 01/25/25 22:59 06:59 14:59 Intake Total 1410 / 2582.971 2318 / 4900.971 Output Total 900 / 900 750 / 1650 Balance 510 / 7657.297 3695 / 3250.971 Weight last 48 hrs Weight 171 lb 15.369 oz Weight 170 lb 13.732 oz Physical Exam 2 Narrative: BELOW IS A FOCUSED LOWER EXTREMITY EXAM GENERAL: A&O x 3 VASCULAR: DP/PT pulses palpable 2/4 with CFT intact, <3seconds to distal digits. +3 pitting edema bilateral lower extremities. DERMATOLOGICAL: Significant improvement of bilateral lower extremity edema. Unna boots removed at bedside this morning. Wounds have healed. Stable eschar overlying wounds. No signs of active infection or drainage. MUSCULOSKELETAL: No gross musculoskeletal deformities noted. Pain with palpation of periwound area to right leg. NEUROLOGICAL: Neurological sensation to the affected foot and ankle is present through L4-S1 dermatomes with no hyper/hypoesthesias, negative Tinel or Valleix's sign Urinary Catheter Management: Plaza: Cath Placed During This Visit: yes Reason for Continuing Indwelling Catheter: Accurate Measurement of Urinary Output in Critically Ill Patients Urinary Catheter Date of Insertion: 01/23/25 Urinary Catheter Time of Insertion: 18:24 Data 01/23/25 03:47 01/25/25 04:46 Micro: Microbiology 01/23/25 13:05 Gram Stain - Final Other Source Body Fluid Culture - Preliminary Yeast species A&P Assessment and plan 1. Cellulitis: 2. Venous stasis: Plan: Bilateral lower extremity venous stasis with cellulitis leading to sepsis--- resolved Patient seen and evaluated in ICU this morning. Unna boots removed. Cellulitis and edema to lower extremities has resolved. Jay bandage compression wrap applied to bilateral lower extremities. Podiatry will sign off. Dressing orders placed. Podiatry discharge instructions placed. Thank you for this consult. Please reconsult if needed. PDMP PDMP Reviewed: Not Reviewed Attestations 2 Medical Necessity Statement*: See hospitalist note Coding Level of Care Code Acute Code for Chg Fwd Diagnoses Cellulitis L03.90 Venous stasis I87.8
[2025-01-25] MEDS: sucralfate 1 gm/10 mL Oral Liq UDC PO ×4 (08:37→21:34)
--- NOTE | 2025-01-25 10:52 | PC.SOCIAL ---
[facility] [address] [facility] Updated and reviewed w/ patient. Copy provided and copy dated, initialed and placed in chart.
[2025-01-25] MEDS: pantoprazole 40 mg SDV IVP ×3 (11:17→22:37)
--- NOTE | 2025-01-25 12:50 | PC.NUTR ---
Recommend Glucerna 1.5 with goal rate of 40mls/hr with FWF 100mls Q4H or per MD discretion. Glucerna 1.5 @40mls/hr will provide 1440kcals or 100% Pt's estimated calorie needs and 80 grams protein or 86% Pt's estimated protein needs. Glucerna 1.5 @50mls/hr will provide 1800kcals or 125% Pt's estimated kcal needs and 99.6 grams protein or 107% Pt's estimated protein needs.
--- NOTE | 2025-01-25 13:39 | P.PN_ITS ---
Subjective 2 Subjective: Partha Roe is a 65 year old male COPD, sarcoidosis diagnosed in 2018, biopsy-proven on 20 mg of prednisone since then attempting to wean off gets admitted to the hospital with worsening shortness of breath was placed on BiPAP worsened and required intubation on 01/19/2025 after admission on 01/16/2025 and failed BiPAP Priscilla at bedside states that patient was wanting the BiPAP because he could not breathe but BiPAP was not helping enough leading to intubation. Tachycardia has resolved. Pt has central apnea after 1 hour on weaning trial. This may be this may be treatment induced central apnea from sleep apnea. Diuresis held for 2 days but he does continue to diurese spontaneously with the vent support. Patient is more alert and tolerating full tube feeds at 50 cc an hour Jevity 1.5 sodium has come down to 150 Priscilla is present at bedside and updated. She states patient has been responsive. Dr. Freed has talked to Priscilla and current vent weaning plan is to extubate Tuesday or Tuesday and if requiring reintubation will proceed with tracheostomy Vitals/I&O/Wt Last Vital Signs Temp 97.6 F 01/25/25 04:00 Pulse 96 01/25/25 13:00 Resp 12 01/25/25 11:28 BP 134/76 01/25/25 13:00 Pulse Ox 99 01/25/25 13:00 O2 Del Method Mechanical Ventilation 01/25/25 11:28 O2 Flow Rate 3 01/19/25 00:30 FiO2 30 01/25/25 11:28 01/24/25 01/25/25 01/25/25 22:59 06:59 14:59 Intake Total 1410 / 2582.971 2318 / 4900.971 Output Total 900 / 900 750 / 1650 Balance 510 / 8244.323 6163 / 3250.971 Weight last 48 hrs Weight 78 kg Weight 77.5 kg Physical Exam 2 Narrative: General well-developed well-nourished male on the vent comfortable heart rate controlled at 96 CV regular rate and rhythm no loud murmur Lungs clear on vent with moderate air movement Abdomen diminished bowel tones soft nontender Calves trace edema arms 2+ right arm edema 1+ left there are signs of chronic venous patient with forearm edema beyond his Coban IV protective wraps these were cut off and nurse was updated. Will rewrap looser or use tape Neuro patient is able to squeeze my fingers bilaterally and raise his thumbs. He nods and shakes appropriately. Paper addition is a Carpenter to raise his right arm off the bed which is temporarily unrestrained Urinary Catheter Management: Plaza: Cath Placed During This Visit: yes Reason for Continuing Indwelling Catheter: Accurate Measurement of Urinary Output in Critically Ill Patients Urinary Catheter Date of Insertion: 01/23/25 Urinary Catheter Time of Insertion: 18:24 Data 01/23/25 03:47 01/25/25 04:46 Micro: Microbiology 01/16/25 16:20 Blood Culture - Final Blood Staphylococcus epidermidis 01/23/25 13:05 Gram Stain - Final Other Source Body Fluid Culture - Preliminary Staphylococcus species Yeast species CXR: Radiologist's impression: 1. Mild cardiomegaly with pulmonary vascular congestion. 2. Bilateral pleural effusions. 3. Satisfactory position of endotracheal tube and nasogastric tube. A&P Assessment and plan 1. Acute hypernatremia: I think this i was attributable to steroids and Precedex in the setting of diuresis. Continue increased free water and IV fluid with D5 W. Tube feeds have been increased. Resume diuresis 2. Pulmonary edema: Patient with pulmonary edema and difficult to diurese due to hyponatremia, Plaza was plugged improved now 3. Acute respiratory failure: Patient with pulmonary edema and suspected pneumonia that is resolving. Resume diuresis Continue free water 4. Severe sepsis: Resolved continue meropenem for Klebsiella ESBL UTI 5. Bilateral lower leg cellulitis: Near completely resolved 6. Chronic diastolic heart failure: Resume lower dose furosemide and metolazone 7. Centrilobular emphysema: Carries a diagnosis of sarcoidosis. Please see Dr. Freed's note regarding this diagnosis 8. History of pulmonary embolism: Patient takes Eliquis 5 mg twice daily chronically Currently on Lovenox full dose 9. Type 2 diabetes mellitus without complication, without long-term current use of insulin: Blood sugars running 188-283 will increase Lantus further and additional dose this morning PDMP PDMP Reviewed: Not Reviewed Attestations 2 Medical Necessity Statement*: Patient is expected to require greater than 2 midnights in the hospital for vent weaning diuresis and correction of hypernatremia Coding Level of Care Code 23416 Diagnoses Acute hypernatremia E87.0 Pulmonary edema J81.1 Acute respiratory failure J96.00 Severe sepsis A41.9; R65.20 Bilateral lower leg cellulitis L03.116; L03.115 Chronic diastolic heart failure I50.32 Centrilobular emphysema J43.2 COPD type: emphysema Emphysema type: centrilobular History of pulmonary embolism Z86.711 Type 2 diabetes mellitus without complication, without long-term current use of insulin E11.9 Diabetes mellitus complication status: without complication 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
--- NOTE | 2025-01-25 14:30 | P.PN_ITS ---
Subjective 2 Subjective: Partha Roe is a 65 year old male COPD, sarcoidosis diagnosed in 2018, biopsy-proven on 20 mg of prednisone since then attempting to wean off gets admitted to the hospital with worsening shortness of breath was placed on BiPAP and I was consulted for further management Patient was gradually weaned off of prednisone. CT scan done recently does not have any evidence of any lung nodules or evidence of sarcoidosis. He was on albuterol and Trelegy for his COPD. Outpatient labs showed normal alpha-1 antitrypsin levels, TERRA and ESR levels are normal This admission patient comes to the ER with fever weakness and low blood pressure. Patient had had leg cellulitis for the last 2 days becoming woozy and foul-smelling. He was found to be in septic shock and admitted to the hospital. Fluid bolus given. Empirically started on IV IV vancomycin and meropenem. Creatinine was found to be elevated at 1.7. Patient was also treated for COPD Exacerbation with Pulmicort twice daily and DuoNebs every 6 hours Labs were consistent with white count of 19. ABG shows a pH of 7.23, pCO2 of 41 we will start her on BiPAP and tolerating it well. CT chest showed no PE and some bibasilar infiltrates in the dependent portion of the chest possible pneumonia mucous plugging bilateral lower lobes. 01/20/2025 Patient decompensated last night and had to be urgently intubated. Became more dyspneic prior to intubation. Respiratory rate went up to 21 prior to intubation and became lethargic. Did not need pressors. Currently on tidal volume of 370 mL, respiratory rate of 14 FiO2 of 30%. On propofol and fentanyl drips for sedation. 01/21/2025 Patient is on the ventilator tolerating tidal volume of 370 mL, FiO2 of 30%. Satting 96% peripherally. On propofol at 50 and fentanyl at 75 mics. Getting free water flushes. 01/22/2025 Tolerating ventilator well. PF ratio is improved to 300s but mentation is not appropriate yet. On Versed and fentanyl drips 01/23/2025 Patient still has a lot of thick secretions via ET tube. Chest x-ray showed pulmonary vascular congestion although could be pneumonia as well. Bronchoscopy performed today. Good urine output. 01/24/2025 Very minimal ETT secretions. Still very volume overloaded. Bronchoscopy done yesterday. Secretions. Mental status still not appropriate for extubation. On Precedex 0.5. Wakes up and follows commands but very weak still. 01/25/2025 Minimal ET tube secretions. Awake following commands. Still having some apneic episodes. Off of all sedation. Review of systems-cannot be obtained patient is intubated and sedated Vitals/I&O/Wt Last Vital Signs Temp 97.6 F 01/25/25 04:00 Pulse 96 01/25/25 13:00 Resp 12 01/25/25 11:28 BP 134/76 01/25/25 13:00 Pulse Ox 99 01/25/25 13:00 O2 Del Method Mechanical Ventilation 01/25/25 11:28 O2 Flow Rate 3 01/19/25 00:30 FiO2 30 01/25/25 11:28 01/24/25 01/25/25 01/25/25 22:59 06:59 14:59 Intake Total 1410 / 2582.971 2318 / 4900.971 Output Total 900 / 900 750 / 1650 Balance 510 / 5801.420 5713 / 3250.971 Weight last 48 hrs Weight 171 lb 15.369 oz Weight 170 lb 13.732 oz Physical Exam 2 Narrative: per RN General: Intubated sedated does wake up and follow commands HEENT: conj clear, EOMI, PERRL Neck: supple Pulmonary: Diminished breath sounds bilaterally Cardiovascular: rrr, nl s1s2, no mrg Abdomen: soft, nt, nd, no r/g, Extremities: pulses +, 2+ pedal edema Skin: Weeping skin lesions noted Neurologic: grossly intact Agree with above exam Urinary Catheter Management: Plaza: Cath Placed During This Visit: yes Reason for Continuing Indwelling Catheter: Accurate Measurement of Urinary Output in Critically Ill Patients Urinary Catheter Date of Insertion: 01/23/25 Urinary Catheter Time of Insertion: 18:24 Data 01/23/25 03:47 01/25/25 04:46 Micro: Microbiology 01/16/25 16:20 Blood Culture - Final Blood Staphylococcus epidermidis 01/23/25 13:05 Gram Stain - Final Other Source Body Fluid Culture - Preliminary Staphylococcus species Yeast species A&P Assessment and plan 1. COPD (chronic obstructive pulmonary disease): Plan: # Septic shock-most likely due to bilateral lower extremity cellulitis as well as pneumonia -Patient's lower extremities are most likely the source of his sepsis although pneumonia sputum cultures pending obtain 01/25/2025. Status post bronchoscopy 01/25/2025. No growth till today, cultures reviewed today personally. -Urine cultures positive for Klebsiella 01/16/2025 - Endorgan damage is renal as well as hemodynamic collapse - Continue broad-spectrum antibiotics with meropenem -Fluids off - Levo has been off. - Labs reviewed-01/25/2025-white count is 9.58, creatinine 0.5, # Bilateral lower leg extremity cellulitis Plan as above, wound dressing changes daily-discussed with nurse about possibly wrapping his arms as well. Some some areas on the right forearm look a little worse. Dressing changes per Dr. Noel # Acute on chronic hypercapnic/hypoxic respiratory failure-most likely secondary to acute pulmonary edema although underlying pneumonia cannot be ruled out. -Continue ventilator on low tidal volumes ventilation strategy per [facility] protocol. low tidal volume strategy around 350 mL tidal volume. Discussed with RT. Accept permissive hypercapnia. Current pH of 7.39, 44, 95.5 EF of 318- 10/22/2024 - Chest x-ray reviewed-suggestive of pulmonary vascular congestion. Urine output 2000 mL Continue DuoNebs along with Pulmicort, Brovana continue -Continue steroids-increase to 125 Solu-Medrol Q8 wean off to prednisone daily from today -Reviewed notes from anesthesia. 8 ET tube placed, succinylcholine and etomidate given for intubation. Chest x-ray from yesterday reviewed-interpreted personally. Chest x-ray clearing, diaphragms are more visible congestion resolving. - Having apnea episodes, all sedation on hold currently due to. # Hypernatremia - Continue D5W drip- rate to 75-continue. Will start Lasix 40 twice daily IV today. -Labs reviewed sodium is 150 today 01/25/2025 -Precedex stopped as well as Versed and fentanyl pushes as needed. # Hypokalemia Potassium reviewed today, 3.8. Replacement protocol ongoing. # Acute COPD exacerbation -Continue bronchodilators, steroids changed 01/24/2025-quickly weaned over the next 3 to 4 days off -Continue ventilator and wean off as tolerated # Probable bilateral pneumonia -CT scan reviewed did not show any PE but did show mucous plugging in the bilateral lower lobes suggestive of pneumonia close to the diaphragm -Antibiotics as above- -Urine growing gram-negative rods but may not be true UTI recommend changing catheter and checking another UA. All others NGTD. Staph epi in 1 out of 2 blood cultures most likely contaminant NGTD 01/25/2025 other than Klebsiella in urine -Status post bronchoscopy 01/23/2025-BAL from bilateral lower lobes collected and sent for cultures. Frothy secretions noted on clear mother congestive heart failure versus pneumonia or combination of both. Airways look very edematous and boggy-no growth till date reviewed today. # Bilateral lower leg cellulitis-severe -Currently covered with meropenem. Good anaerobic and beta-lactam coverage as well can be stopped tomorrow.-Will completed 7-day course vancomycin discontinued 01/23/2025 -Wrapping legs and arms in place. Appreciate Dr. Mensah' help. # History of PE -On full dose Lovenox currently to replace per home dose Eliquis. Hemoglobin stable at 8. Okay to start Eliquis after extubation # Lethargy Patient is on propofol and fentanyl drip as well as getting oxycodone and morphine as needed I have instructed nurse to wean off drips in order to assess neurostatus. Use as needed Versed and fentanyl as needed pushes. Sedation vacation daily. CT head 01/22/2025-no acute stroke noted # Mucous plugging -Continue DuoNebs and bronchodilators with steroids. Continue Mucinex to help mobilize secretions. # Obesity # Sarcoidosis -Not active at this time. Recent TERRA and ESR labs were low when last checked in clinic recently. # MICHELLE -Improved. # Acute lactic acidosis -Improved # Anemia -most likely sepsis induced. Not seeing any obvious source of bleeding currently. he is Hemoccult positive but not actively bleeding. Agree with Protonix 40 mg IV twice daily, will start anticoagulation soon. # Hypoalbuminemia Maintenance meds -Maintain glucose levels and keep blood glucose 140-180. Avoid hypoglycemia. Low-dose sliding scale in place. start tube feeds tomorrow-Place Dobbhoff. Good bowel regimen -DVT GI prophylaxis with protonix. Due to cellulitis SCDs cannot be placed leg wrappings ongoing Full code Goals of care discussion-discussed case with who is at bedside today on 01/20/2025,01/21. She is agreeable to the current plan of care. 01/25/2025-she is agreeable to trialing extubation this weekend and if he fails due to his apnea episodes we would reintubate him. Discussed with Dr. Hodges. Plan to treat him if he fails by early next week. The high probability of a clinically significant, sudden or life threatening deterioration of the patient's [Respiratory, sepsis] system(s) required my full and direct attention, intervention and personal management. The critical care time is as shown. This time is in addition to time spent performing any reported procedures but includes the following: [x] Data and vital sign review and interpretation [x] Patient assessment, examination and intervention [x] Documentation [x] Medication orders and management Critical Care Time (min): 45 Telemedicine Consent Patient seen today via Telemedicine by agreement and consent of patient.? Telemedicine technology used during the visit includes audio and, as available, review of images.? The patient encounter is appropriate and reasonable under the circumstances given the patient?s particular presentation at this time.? The patient has been advised of the potential risks and limitations of this mode of treatment (including but not limited to the absence of in-person examination) and has agreed to be treated in a remote fashion in spite of them.? Any, and all, of the patient?s/patient?s family?s questions on this issue have been answered and I have made no promises or guarantees to the patient. The patient has also been advised to contact this office for worsening conditions or problems, and seek emergency medical treatment and/or call 911 if the patient deems either necessary PDMP PDMP Reviewed: Not Reviewed Attestations 2 Medical Necessity Statement*: Intubated sedated Coding Level of Care Code Critical Care >/= 30 minutes Diagnoses COPD (chronic obstructive pulmonary disease) J44.9
[2025-01-25] MEDS: FUROsemide 10 mg/mL SDV 4mL 40 MG IVP (15:35)
[2025-01-25] MEDS: potassium chloride oral liq 20 mEq/15 mL UDC OG-TUBE (17:17)
[2025-01-25] MEDS: insulin glargine 100 units/1 mL 33 UNIT SUBCUT (17:21)
[2025-01-25] MEDS: morphine 4 mg/mL SDV 1 mL IVP (19:24)
[2025-01-25] MEDS: MELATONIN 3 MG TABLET 6 MG PO (20:09)
[2025-01-26] VITALS (40 sets, daily range): BP systolic 99–160; BP diastolic 54–82; PULSE 80–116; RESP 8–19; TEMP 36.6–37.4; O2SAT 88–100
[2025-01-26] MEDS: meropenem 1,000 mg SDV 1000 MG IVP ×2 (00:01→07:41)
[2025-01-26] MEDS: FUROsemide 10 mg/mL SDV 4mL 40 MG IVP ×2 (00:47→12:33)
[2025-01-26] MEDS: morphine 4 mg/mL SDV 1 mL 2 MG IVP ×4 (00:48→18:39)
[2025-01-26] MEDS: fentaNYL 50 mcg/mL INJ 2mL 100 MCG IVP (01:42)
[2025-01-26] MEDS: dilTIAZem 5 mg/mL SDV 5 mL 10 MG IVP ×5 (02:07→18:24)
[2025-01-26] MEDS: metoprolol tartrate 1 mg/1 mL SDV 5 mL 5 MG IVP ×3 (04:34→16:30)
[2025-01-26] MEDS: lactulose oral liq 20 gm/30 mL UDC 10 GM PO (04:34)
[2025-01-26] MEDS: polyethylene glycol 3350 Pkt 17 gm PO (04:34)
[2025-01-26] MEDS: potassium chloride oral liq 20 mEq/15 mL UDC OG-TUBE (04:34)
--- NOTE | 2025-01-26 05:42 | XRR_ITS ---
PROCEDURE INFORMATION: Exam: XR Chest Exam date and time: 01/26/2025 5:46 AM Age: 65 years old Clinical indication: Shortness of breath; Prior surgery; Surgery date: 6+ months; Surgery type: Coronary stents. Kyphoplasty; Desturation despite mechanical ventilation. ; Additional info: Desatting TECHNIQUE: Imaging protocol: Radiologic exam of the chest. Views: 1 view. COMPARISON: CR XR chest 1V portable [id number] 01/24/2025 9:13 AM FINDINGS: Tubes, catheters and devices: Endotracheal tube tip is 4 cm above the alli. Orogastric tube courses below the diaphragm and off the field of view with the side port below the GE junction. Lungs: Persistent prominent pulmonary vasculature. No new airspace disease. Pleural spaces: Similar bilateral pleural effusions. Heart/Mediastinum: Stable cardiomegaly. Bones/joints: Kyphoplasty changes in the thoracic spine. No acute findings. Soft tissues: Right axillary surgical clips again noted. XR/XR chest 1V portable [id number] IMPRESSION: No significant interval change.
[2025-01-26 05:45] LABS: Blood Urea Nitrogen 45 mg/dL (8-23); Calcium 8.4 mg/dL (8.5-10.5); Carbon Dioxide 30 mmol/L (22-29); Chloride 97 mmol/L (98-107); Creatinine Clr Calc Pharmacy 118.9222; Glucose 110 mg/dL (65-115); Osmolality Calculated 298 mOsm/kg (285-295); Sodium 138 mmol/L (136-145)
[2025-01-26 05:48] LABS: Anion Gap 16.0 (5-19); Potassium 5.0 mmol/L (3.5-5.1)
[2025-01-26 06:04] LABS: ABG PCO2 50.2 mmHg (35-45); ABG PH Result 7.50 (7.35-7.45); Alveolar-Arterial Oxygen Gradi 12.9 mmHg (5-10); Arterial Blood Gas Hematocrit 29.4 % (42-52); Blood Gas Operator Identificat JDB; Blood Gas Sample Site Brachial, right; Blood Gas Sample Type Arterial; Blood Gas Tidal Volume 0.37; Carboxyhemoglobin 1.3 %THgb (0.4-20.1); Glucose Level-ABG 132.0 mg/dL (70-115); HCO3 ABG 39.5 mmol/L (22-26); Ionized Calcium Level - ABG 1.2 mmol/L (1.1-1.4); Methemoglobin 0.9 % (0.4-1.5); Oxygen Saturation ABG 98.1; PEEP 10.0 cmH20; PO2 ABG 89.2 mmHg (80.0-100.0); PO2 FiO2 Ratio Arterial Blood 254; Potassium Level - ABG 4.5 mmol/L (3.5-5.0); Sodium Level - ABG 141.0 mmol/L (131-143)
[2025-01-26] MEDS: ARFORMOTEROL 15 MCG/2 ML NEB INHALATION ×2 (07:23→21:04)
[2025-01-26] MEDS: sucralfate 1 gm/10 mL Oral Liq UDC PO ×2 (07:42→11:37)
[2025-01-26] MEDS: insulin glargine 100 units/1 mL 33 UNIT SUBCUT (08:19)
--- NOTE | 2025-01-26 09:20 | P.PN_ITS ---
Subjective 2 Subjective: Partha Roe is a 65 year old male COPD, sarcoidosis diagnosed in 2018, biopsy-proven on 20 mg of prednisone since then attempting to wean off gets admitted to the hospital with worsening shortness of breath was placed on BiPAP worsened and required intubation on 01/19/2025 after admission on 01/16/2025 and failed BiPAP Priscilla at bedside states that patient was wanting the BiPAP because he could not breathe but BiPAP was not helping enough leading to intubation. Tachycardia has resolved. Pt has central apnea after 1 hour on weaning trial. This may be this may be treatment induced central apnea from sleep apnea. Diuresis held for 2 days but he does continue to diurese spontaneously with the vent support. Patient is more alert and tolerating full tube feeds at 50 cc an hour Jevity 1.5 sodium has come down to 150 Priscilla is present at bedside and updated. She states patient has been responsive. Dr. Freed has talked to Priscilla and current vent weaning plan is to extubate Tuesday or Tuesday and if requiring reintubation will proceed with tracheostomy Vitals/I&O/Wt Last Vital Signs Temp 98.2 F 01/26/25 07:40 Pulse 99 01/26/25 08:00 Resp 12 01/26/25 08:18 BP 158/69 01/26/25 08:00 Pulse Ox 99 01/26/25 08:18 O2 Del Method Mechanical Ventilation 01/26/25 08:00 O2 Flow Rate 3 01/19/25 00:30 FiO2 35 01/26/25 08:51 01/25/25 01/26/25 01/26/25 22:59 06:59 14:59 Intake Total 2030.75 / 2030.75 2066.417 / 4097.167 213.75 / 213.75 Output Total 1500 / 1500 1250 / 2750 Balance 530.75 / 530.75 816.417 / 1347.167 213.75 / 213.75 Weight last 48 hrs Weight 78 kg Physical Exam 2 Narrative: General well-developed well-nourished male on the vent comfortable heart rate controlled at 80s to 90s CV regular rate and rhythm no loud murmur Lungs clear on vent with moderate air movement Abdomen diminished bowel tones soft nontender Patient has general mild to moderate pitting edema consistent with mild anasarca poor nutrition Patient is turned on his left side currently for cleaning and he is cooperative and head nods and holds up his thumbs and greeting Urinary Catheter Management: Plaza: Cath Placed During This Visit: yes Reason for Continuing Indwelling Catheter: Accurate Measurement of Urinary Output in Critically Ill Patients Urinary Catheter Date of Insertion: 01/23/25 Urinary Catheter Time of Insertion: 18:24 Data 01/23/25 03:47 01/26/25 05:05 Micro: Microbiology 01/16/25 16:20 Blood Culture - Final Blood Staphylococcus epidermidis 01/23/25 13:05 Gram Stain - Final Other Source Body Fluid Culture - Preliminary Staphylococcus species Yeast species A&P Assessment and plan 1. Metabolic alkalosis with respiratory acidosis: This is complicating weaning patient off the vent. Will start acetazolamide 500 mg now and daily to increase bicarbonate excretion Repeat ABG shows some improvement bicarb down to 35 2. Acute hypernatremia: I think this i was attributable to steroids and Precedex in the setting of diuresis. Resolved discontinue D5W continue free water and tube feeds to total 2 L day including feeds and water Sodium normalized at 138 3. Pulmonary edema: Continue with diuresis. Large volume free water can be discontinued at this time from tube feeds 4. Acute respiratory failure: Patient with pulmonary edema and suspected pneumonia that is resolving. Resume diuresis Continue free water via OG tube. Discontinued D5 W Dr. Freed managing vent and planning for extubation now. I will be available in house for reintubation if needed 5. Bilateral lower leg cellulitis: Near completely resolved 6. Chronic diastolic heart failure: Resume lower dose furosemide and metolazone plus acetazolamide 7. Centrilobular emphysema: Carries a diagnosis of sarcoidosis. Please see Dr. Freed's note regarding this diagnosis 8. History of pulmonary embolism: Patient takes Eliquis 5 mg twice daily chronically Currently on Lovenox full dose. I switched to Lovenox for ease of discontinuance in case patient needs a trach early next week 9. Type 2 diabetes mellitus without complication, without long-term current use of insulin: Blood sugars running 150 on current dose Lantus PDMP PDMP Reviewed: Not Reviewed Attestations 2 Medical Necessity Statement*: Patient require additional time in the hospital for diuresis, correction of electrolyte imbalance and extubation and expected to recover require greater than 2 midnights Coding Level of Care Code 78440 Diagnoses Metabolic alkalosis with respiratory acidosis E87.4 Acute hypernatremia E87.0 Pulmonary edema J81.1 Acute respiratory failure J96.00 Bilateral lower leg cellulitis L03.116; L03.115 Chronic diastolic heart failure I50.32 Centrilobular emphysema J43.2 COPD type: emphysema Emphysema type: centrilobular History of pulmonary embolism Z86.711 Type 2 diabetes mellitus without complication, without long-term current use of insulin E11.9 Diabetes mellitus complication status: without complication Diabetes mellitus [facility] insulin use: without [facility] use Time Spent (min) 40
--- NOTE | 2025-01-26 10:01 | P.PN_ITS ---
Subjective 2 Subjective: Partha Roe is a 65 year old male COPD, sarcoidosis diagnosed in 2018, biopsy-proven on 20 mg of prednisone since then attempting to wean off gets admitted to the hospital with worsening shortness of breath was placed on BiPAP and I was consulted for further management Patient was gradually weaned off of prednisone. CT scan done recently does not have any evidence of any lung nodules or evidence of sarcoidosis. He was on albuterol and Trelegy for his COPD. Outpatient labs showed normal alpha-1 antitrypsin levels, TERRA and ESR levels are normal This admission patient comes to the ER with fever weakness and low blood pressure. Patient had had leg cellulitis for the last 2 days becoming woozy and foul-smelling. He was found to be in septic shock and admitted to the hospital. Fluid bolus given. Empirically started on IV IV vancomycin and meropenem. Creatinine was found to be elevated at 1.7. Patient was also treated for COPD Exacerbation with Pulmicort twice daily and DuoNebs every 6 hours Labs were consistent with white count of 19. ABG shows a pH of 7.23, pCO2 of 41 we will start her on BiPAP and tolerating it well. CT chest showed no PE and some bibasilar infiltrates in the dependent portion of the chest possible pneumonia mucous plugging bilateral lower lobes. 01/20/2025 Patient decompensated last night and had to be urgently intubated. Became more dyspneic prior to intubation. Respiratory rate went up to 21 prior to intubation and became lethargic. Did not need pressors. Currently on tidal volume of 370 mL, respiratory rate of 14 FiO2 of 30%. On propofol and fentanyl drips for sedation. 01/21/2025 Patient is on the ventilator tolerating tidal volume of 370 mL, FiO2 of 30%. Satting 96% peripherally. On propofol at 50 and fentanyl at 75 mics. Getting free water flushes. 01/22/2025 Tolerating ventilator well. PF ratio is improved to 300s but mentation is not appropriate yet. On Versed and fentanyl drips 01/23/2025 Patient still has a lot of thick secretions via ET tube. Chest x-ray showed pulmonary vascular congestion although could be pneumonia as well. Bronchoscopy performed today. Good urine output. 01/24/2025 Very minimal ETT secretions. Still very volume overloaded. Bronchoscopy done yesterday. Secretions. Mental status still not appropriate for extubation. On Precedex 0.5. Wakes up and follows commands but very weak still. 01/25/2025 Minimal ET tube secretions. Awake following commands. Still having some apneic episodes. Off of all sedation. 01/27/2024 Had an episode of mucous plugging overnight where he had to be placed on high percent FiO2 on the ventilator briefly with aggressive suctioning. This morning he looks awake and alert following commands, good cough. Vent settings of the same on 35% FiO2 satting 100% currently. Review of systems-cannot be obtained patient is intubated and sedated Vitals/I&O/Wt Last Vital Signs Temp 98.2 F 01/26/25 07:40 Pulse 99 01/26/25 08:00 Resp 12 01/26/25 08:18 BP 158/69 01/26/25 08:00 Pulse Ox 99 01/26/25 08:18 O2 Del Method Mechanical Ventilation 01/26/25 08:00 O2 Flow Rate 3 01/19/25 00:30 FiO2 35 01/26/25 08:51 01/25/25 01/26/25 01/26/25 22:59 06:59 14:59 Intake Total 2030.75 / 2030.75 2066.417 / 4097.167 213.75 / 213.75 Output Total 1500 / 1500 1250 / 2750 Balance 530.75 / 530.75 816.417 / 1347.167 213.75 / 213.75 Weight last 48 hrs Weight 171 lb 15.369 oz Physical Exam 2 Narrative: per RN General: Intubated awake and alert following commands. Was able to raise both arms up as well as cough, good cough. HEENT: conj clear, EOMI Pulmonary: Diminished breath sounds bilaterally more so at the lower bases Cardiovascular: rrr, nl s1s2 Abdomen: soft, nt, nd, no r/g, Extremities: pulses +, 1+ pedal edema Skin: All extremities wrapped no open wounds noted Neurologic: grossly intact Agree with above exam Urinary Catheter Management: Plaza: Cath Placed During This Visit: yes Reason for Continuing Indwelling Catheter: Accurate Measurement of Urinary Output in Critically Ill Patients Urinary Catheter Date of Insertion: 01/23/25 Urinary Catheter Time of Insertion: 18:24 Data 01/23/25 03:47 01/26/25 05:05 Micro: Microbiology 01/16/25 16:20 Blood Culture - Final Blood Staphylococcus epidermidis 01/23/25 13:05 Gram Stain - Final Other Source Body Fluid Culture - Preliminary Staphylococcus species Yeast species A&P Assessment and plan 1. COPD (chronic obstructive pulmonary disease): Plan: # Septic shock-most likely due to bilateral lower extremity cellulitis as well as pneumonia -Patient's lower extremities are most likely the source of his sepsis although pneumonia sputum cultures pending obtain 01/25/2025. Status post bronchoscopy 01/25/2025. No growth till 01/26/2025, cultures reviewed today personally. -Urine cultures positive for Klebsiella 01/16/2025 - Endorgan damage is renal as well as hemodynamic collapse - Continue broad-spectrum antibiotics with meropenem-7 days of antibiotics completed stop today. - Levo has been off. - Labs reviewed-01/26/2025-no growth till date on cultures # Bilateral lower leg extremity cellulitis/sepsis Overall improvement noted dressing changes per Dr. Noel. Unreliable weight checks. Clinically looks less edematous overall. # Acute on chronic hypercapnic/hypoxic respiratory failure-most likely secondary to acute pulmonary edema/acute congestive heart failure and pneumonia -Vent days #7, intubated -Continue ventilator on low tidal volumes ventilation strategy per [facility] protocol. low tidal volume strategy around 350 mL tidal volume. Discussed with RT. Accept permissive hypercapnia. Current pH of 7.5/pCO2 of 50/PaO2 of 89, PF ratio of 254. 01/26/2025 - Chest x-ray reviewed-suggestive of pulmonary vascular congestion. Urine output 2700 mL 01/26/2025. Chest x-ray done today shows bilateral pleural effusions. Will plan on thoracentesis on Tuesday if he has trouble getting extubated today. Continue DuoNebs along with PulmicortCarolyn continue -Continue steroids-increase to 125 Solu-Medrol Q8 wean off to prednisone daily from today -Reviewed notes from anesthesia. 8 ET tube placed, succinylcholine and etomidate given for intubation. Chest x-ray from yesterday reviewed-interpreted personally. Chest x-ray clearing, diaphragms are more visible congestion resolving. - Having apnea episodes, all sedation on hold currently due to. Most likely underlying sleep apnea contributing to this # Bilateral pleural effusions-most likely congestive heart failure related - Chest x-ray reviewed-suggestive of pulmonary vascular congestion. Urine output 2700 mL 01/26/2025. Chest x-ray done today shows bilateral pleural effusions. Will plan on thoracentesis on Tuesday if he has trouble getting extubated today. # Hypernatremia Labs reviewed 01/26/2025. Sodium has normalized to 138 today. Potassium is 5. We are going to stop free water flushes as well as D5W. Creatinine 0.6 and good urine output. # Acute encephalopathy-most likely secondary to oversedation -Precedex stopped as well as Versed and fentanyl pushes as needed. Only 1 dose of fentanyl during his mucous plugging episode given overnight Daily sedation vacation Very minimally use as needed Versed and fentanyl as needed pushes. CT head 01/22/2025-no acute stroke noted stat CT head for any new neurochanges. Grossly looks intact. DC Ativan. # Hypokalemia Potassium reviewed today, 5.0. Replacement protocol ongoing. Holding potassium replacement # Acute COPD exacerbation -Continue bronchodilators, steroids changed 01/24/2025--changed over to 20 mg prednisone today 01/26/2025 -Continue ventilator and wean off as tolerated # Probable bilateral pneumonia -CT scan reviewed did not show any PE but did show mucous plugging in the bilateral lower lobes suggestive of pneumonia close to the diaphragm -Antibiotics as above- -Urine growing gram-negative rods but may not be true UTI recommend changing catheter and checking another UA. All others NGTD. Staph epi in 1 out of 2 blood cultures most likely contaminant NGTD 01/25/2025 other than Klebsiella in urine -Status post bronchoscopy 01/23/2025-BAL from bilateral lower lobes collected and sent for cultures. Frothy secretions noted on clear mother congestive heart failure versus pneumonia or combination of both. Airways look very edematous and boggy-no growth till date reviewed today 01/26/2025, Merrem discontinued 01/26/2025. # Bilateral lower leg cellulitis-severe -Currently covered with meropenem. Good anaerobic and beta-lactam coverage vancomycin discontinued 01/23/2025, Merrem discontinued 01/26/2025-completed 7- day course -Wrapping legs and arms in place. Appreciate Dr. Mensah' help. # History of PE -On full dose Lovenox currently to replace per home dose Eliquis. Hemoglobin stable at 8. Okay to start Eliquis after extubation # Mucous plugging -Continue DuoNebs and bronchodilators with steroids. Continue Mucinex to help mobilize secretions. # Obesity # Sarcoidosis -Not active at this time. Recent TERRA and ESR labs were low when last checked in clinic recently. # MICHELLE -Improved. # Acute lactic acidosis -Improved # Anemia -most likely sepsis induced. Not seeing any obvious source of bleeding currently. he is Hemoccult positive but not actively bleeding. Agree with Protonix 40 mg IV twice daily, will start anticoagulation soon. # Hypoalbuminemia Maintenance meds -Maintain glucose levels and keep blood glucose 140-180. Avoid hypoglycemia. tube feeds at goal. Good bowel regimen. May discontinue lactulose by tomorrow. -DVT GI prophylaxis with protonix. Due to cellulitis SCDs cannot be placed leg wrappings ongoing Full code Goals of care discussion-discussed case with who is at bedside today on 01/20/2025,01/21. She is agreeable to the current plan of care. 01/25/2025-she is agreeable to trialing extubation this weekend and if he fails due to his apnea episodes we would reintubate him. Discussed with Dr. Hodges. Plan to treat him if he fails by early next week. The high probability of a clinically significant, sudden or life threatening deterioration of the patient's [Respiratory, sepsis] system(s) required my full and direct attention, intervention and personal management. The critical care time is as shown. This time is in addition to time spent performing any reported procedures but includes the following: [x] Data and vital sign review and interpretation [x] Patient assessment, examination and intervention [x] Documentation [x] Medication orders and management Critical Care Time (min): 45 Telemedicine Consent Patient seen today via Telemedicine by agreement and consent of patient.? Telemedicine technology used during the visit includes audio and, as available, review of images.? The patient encounter is appropriate and reasonable under the circumstances given the patient?s particular presentation at this time.? The patient has been advised of the potential risks and limitations of this mode of treatment (including but not limited to the absence of in-person examination) and has agreed to be treated in a remote fashion in spite of them.? Any, and all, of the patient?s/patient?s family?s questions on this issue have been answered and I have made no promises or guarantees to the patient. The patient has also been advised to contact this office for worsening conditions or problems, and seek emergency medical treatment and/or call 911 if the patient deems either necessary PDMP PDMP Reviewed: Not Reviewed Attestations 2 Medical Necessity Statement*: Intubated Coding Level of Care Code Critical Care >/= 30 minutes Diagnoses COPD (chronic obstructive pulmonary disease) J44.9
[2025-01-26] MEDS: pantoprazole 40 mg SDV IVP (11:37)
[2025-01-26 12:51] LABS: ABG PCO2 44.8 mmHg (35-45); ABG PH Result 7.50 (7.35-7.45); Alveolar-Arterial Oxygen Gradi 6.1 mmHg (5-10); Arterial Blood Gas Hematocrit 29.6 % (42-52); Blood Gas Allen Test Pos; Blood Gas Operator Identificat MONRO; Blood Gas Sample Site Radial, left; Blood Gas Sample Type Arterial; Carboxyhemoglobin 1.5 %THgb (0.4-20.1); Glucose Level-ABG 176.0 mg/dL (70-115); HCO3 ABG 35.0 mmol/L (22-26); Ionized Calcium Level - ABG 1.1 mmol/L (1.1-1.4); Methemoglobin 0.1 % (0.4-1.5); Oxygen Saturation ABG > 99.1; PEEP 8.0 cmH20; PO2 ABG 146.0 mmHg (80.0-100.0); PO2 FiO2 Ratio Arterial Blood 417; Potassium Level - ABG 4.2 mmol/L (3.5-5.0); Sodium Level - ABG 141.0 mmol/L (131-143)
--- NOTE | 2025-01-26 13:27 | PC.NURSE ---
Tube feeding stopped at the time of this note due to plans of extubation.
--- NOTE | 2025-01-26 14:19 | PC.NURSE ---
Extubated at 1416 1RT, 1RN 2L NC.
[2025-01-26] MEDS: insulin glargine 100 units/1 mL 15 UNIT SUBCUT (17:39)
--- NOTE | 2025-01-26 21:15 | PC.NURSE ---
Glucose/Cardizem Patient's glucose level 48 at 2013, recheck 47 at 2015. D10 bolus initiated per protocol. Glucose check 15 minutes following bolus revealed glucose of 160. Furthermore, patient's blood pressure 103/62 with IVP metoprolol as well as IVP cardizem due this evening. Dr. Tejada notified of blood sugar and vital signs. Orders received to discontinue IVP metoprolol, place lantus on hold, do not administer IVP cardizem unless HR >70, systolic BP >120, or MAP <65.
[2025-01-27] VITALS (107 sets, daily range): BP systolic 75–141; BP diastolic 53–91; PULSE 0–120; RESP 12–34; TEMP 36.7–37.1; O2SAT 87–100
[2025-01-27] MEDS: pantoprazole 40 mg SDV IVP ×3 (00:08→23:41)
--- NOTE | 2025-01-27 00:30 | PC.NURSE ---
Glucagon Patient's glucose 78 with D5 administering at 50 ml/hr. Dr. Tejada notified; order received for 1 mg glucagon IV once.
[2025-01-27] MEDS: glucagon 1 mg/mL KIT 1 mL IVP ×2 (00:42→04:56)
[2025-01-27] MEDS: FUROsemide 10 mg/mL SDV 4mL 40 MG IVP (02:33)
--- NOTE | 2025-01-27 02:35 | PC.NURSE ---
Glucose Patient's glucose [address] Tejada contacted; orders received to stop d5 fluid and administer 125 ml of D10 IV bolus once.
--- NOTE | 2025-01-27 03:30 | XRR_ITS ---
PROCEDURE INFORMATION: Exam: XR Chest Exam date and time: 01/27/2025 3:36 AM Age: 65 years old Clinical indication: Shortness of breath; Prior surgery; Surgery date: 6+ months; Surgery type: Coronary stents. Kyphoplasty; Patient extubated and switched to bipap and having declining saturation. ; Additional info: Desaturation TECHNIQUE: Imaging protocol: Radiologic exam of the chest. Views: 1 view. COMPARISON: CR (CHEST, ) 01/26/2025 5:46 AM FINDINGS: Limitations: Patient rotation. Lungs: No definite consolidation in the visualized lung apices. Pleural spaces: Bilateral pleural effusions appear stable. Heart/Mediastinum: No cardiomegaly. Bones/joints: Unremarkable. XR/XR chest 1V portable [id number] IMPRESSION: 1. Exam is severely limited by patient rotation. 2. Bilateral pleural effusions appear stable.
--- NOTE | 2025-01-27 03:38 | PC.NURSE ---
Increased Oxygen Demands Patient's oxygen saturation decreased to as low as 83% while on bipap at 40%. RT at bedside, FIO2 increased to 100%. Lung sounds extremely diminished. Additionally, patient's blood sugar 81. Dr. Tejada notified of oxygen requirements as well as blood sugar; order received for stat chest xray.
--- NOTE | 2025-01-27 04:45 | PC.NURSE ---
D10 Patient's blood glucose 65. Dr. Tejada notified; order received to administer 250 ml of D10 at 50 ml/hr and administer 1 mg glucagon IVP once. No central line present; order verified with Dr. Tejada to administer continuous D10 through peripheral IV.
[2025-01-27 04:56] LABS: Hematocrit 33.8 % (37-53); Hemoglobin 10.40 g/dL (11.27-16.99); Mean Corpuscular HGB Conc 30.8 g/dL (30-55); Mean Corpuscular Hemoglobin 30.8 pg (27-33); Mean Corpuscular Volume 100.0 fl (82-101); Nucleated Red Blood Cells % 0 %; Platelet Count 236 10^3/cmm (157-399); Red Blood Count 3.38 10^6/uL (3.85-5.65); White Blood Count 27.05 10^3/uL (3.29-11.43)
[2025-01-27 05:13] LABS: Alanine Aminotransferase 49 U/L (0-41); Albumin Level 3.4 g/dL (3.5-5.2); Alkaline Phosphatase 154 U/L (40-130); Blood Urea Nitrogen 30 mg/dL (8-23); Calcium 8.8 mg/dL (8.5-10.5); Carbon Dioxide 30 mmol/L (22-29); Chloride 98 mmol/L (98-107); Creatinine Clr Calc Pharmacy 142.7067; Globulin 1.9 g/dL (1.3-4.6); Glucose 63 mg/dL (65-115); Magnesium 2.3 mg/dL (1.7-2.3); Osmolality Calculated 296 mOsm/kg (285-295); Sodium 141 mmol/L (136-145); Total Protein 5.3 g/dL (6.6-8.7)
[2025-01-27 05:20] LABS: Anion Gap 16.9 (5-19); Potassium 3.9 mmol/L (3.5-5.1)
[2025-01-27 05:21] LABS: Aspartate Amino Transferase 31 U/L (0-40)
[2025-01-27] MEDS: HYDROmorphone 0.5 MG/0.5 ML INJ IVP (05:32)
--- NOTE | 2025-01-27 05:52 | PC.NURSE ---
Pain/PO medications Patient complaining of pain intermittently throughout the night. PRN morphine offered multiple times to which patient refused. When asked if patient wanted other pain medicine, patient refused as well. When complaining of pain at approximately 0500, other pain medications discussed again and patient agreed to see about other medications available. Dr. Tejada contacted; order received to administer both 15 mg toradol IVP once as well as 0.5 mg dilaudid IVP once at the same time. Creatinine and listed allergy discussed; verification received to administer as ordered. Furthermore, patient still NPO; Dr. Tejada notified of non administration of PO medications scheduled this AM.
[2025-01-27] MEDS: ARFORMOTEROL 15 MCG/2 ML NEB INHALATION ×2 (08:10→21:12)
--- NOTE | 2025-01-27 08:27 | XRR_ITS ---
PROCEDURE INFORMATION: Exam: XR Chest Exam date and time: 01/27/2025 9:21 AM Age: 65 years old Clinical indication: Shortness of breath; Prior surgery; Surgery date: 6+ months; Surgery type: Cardiac stents; Additional info: Desat; Fluid retention; Bilateral lower ext TECHNIQUE: Imaging protocol: Radiologic exam of the chest. Views: 1 view. COMPARISON: CR (CHEST, ) 01/27/2025 3:36 AM FINDINGS: Lungs: There is a potential granulomatous calcification right hilar region, unchanged from prior study. Pleural spaces: A large right pleural effusion is present, arguably larger than on prior study although this may in part be due to patient positioning. Heart/Mediastinum: Unremarkable. No cardiomegaly. Bones/joints: Vertebroplasty changes are evident in the mid to lower thorax. The osseous structures are stable in appearance. A dextroconvex midthoracic scoliosis is noted. Soft tissues: Surgical clips in the right axilla and gallbladder fossa are again noted. XR/XR chest 1V portable [id number] IMPRESSION: Large, arguably increased right pleural effusion.
[2025-01-27] MEDS: norepinephrine 4 MG/250 ML BAG 7.5 MG IV (09:13)
[2025-01-27 09:14] LABS: Glucose Urine UA Negative (Normal); Nitrate Urine Negative (Negative); Specific Gravity, Urine 1.019 (1.005-1.030)
[2025-01-27 09:44] LABS: UA Manual Slide Review YES; UA Slide Review UA Slide Review Perf
--- NOTE | 2025-01-27 11:24 | PC.NURSE ---
Patient provided with Mildly thick Juice to support blood glucose. Patient states he is not interested in oral intake, patient encouraged to drink juice.
[2025-01-27] MEDS: sucralfate 1 gm/10 mL Oral Liq UDC PO ×2 (11:56→22:10)
--- NOTE | 2025-01-27 12:40 | PM.PN ---
Subjective Subjective: 65-year-old male extubated yesterday did well but this morning has elevated white count and bright red blood per rectum. We changed his Plaza and sent culture. He had recent Klebsiella oxytoca ESBL on 01/16/2025. Notably he has also had recent meropenem, vancomycin for leg infection and a UTI I stopped his Lovenox today though he has chronically been anticoagulated with apixaban outpatient. Patient severely malnourished and weak. He still has done fairly well extubated overnight. Patient companied by his . He is reporting some hunger and appetite needs to be evaluated by speech therapy Vitals/I&O/Wt Last Vital Signs Temp 98.3 F 01/27/25 06:00 Pulse 96 01/27/25 11:09 Resp 18 01/27/25 11:09 BP 105/66 01/27/25 10:30 Pulse Ox 97 01/27/25 11:09 O2 Del Method Nasal Cannula 01/27/25 11:09 O2 Flow Rate 3 01/27/25 11:09 FiO2 40 01/27/25 08:04 01/26/25 01/27/25 01/27/25 22:59 06:59 14:59 Intake Total 280 / 493.75 408.333 / 902.083 250 / 250 Output Total 1950 / 3200 2100 / 5300 Balance -1670 / -2706.25 -1691.667 / -4397.917 250 / 250 Weight last 48 hrs Weight 70.5 kg Physical Exam Narrative: General Well-developed chronically ill-appearing male on BiPAP semifetal position. I straightened him up to extending his torso and neck for better breathing. Repositioned him. Left neck with basal cell carcinoma looking lesion see images. Left ear status post partial resection for skin cancer CV regular rate and rhythm Lungs moderate air movement diminished to bases and diminished in the right greater than left Abdomen positive bowel tones soft nontender Calves trace to 1+ edema see images Arms trace to 1+ edema much improved Urinary Catheter Management: Plaza: Cath Placed During This Visit: yes Reason for Continuing Indwelling Catheter: Accurate Measurement of Urinary Output in Critically Ill Patients Urinary Catheter Date of Insertion: 01/27/25 Urinary Catheter Time of Insertion: 08:52 Data 01/27/25 04:46 01/27/25 04:46 Micro: Microbiology 01/27/25 08:20 Blood Culture - Preliminary Blood SPECIMEN COLLECTED 01/27/25 08:19 Blood Culture - Preliminary Blood SPECIMEN COLLECTED 01/23/25 13:05 Fungal Smear - Preliminary Other Source 01/23/25 13:05 Mycobacterial Smear - Preliminary Body Fluids - Bronchial 01/23/25 13:05 Gram Stain - Final Other Source Body Fluid Culture - Final Staphylococcus haemolyticus Purnima albicans A&P Assessment and plan 1. Urinary tract infection due to ESBL Klebsiella: Start Levaquin 500 mg daily which was proven to be effective based on last sensitivity. Plaza has been changed 2. Metabolic alkalosis with respiratory acidosis: Improved decrease acetazolamide to 250 mg daily for another 5 days 3. Acute hypernatremia: Resolved sodium 141 continue steroids at current dose 20 mg daily. I think the patient has been on chronic steroids at home 4. Pulmonary edema: Decrease diuretics continue lower dose acetazolamide. X-ray to me looks like he has atelectasis in the right lung. Will start incentive spirometry and percussion vest 5. Acute respiratory failure: Extubated but at risk of reintubation with atelectasis and pleural effusions 6. Bilateral lower leg cellulitis: Near completely resolved see images 7. Chronic diastolic heart failure: Decreased to lower dose furosemide plus acetazolamide. Metolazone stopped 8. Centrilobular emphysema: Carries a diagnosis of sarcoidosis. Please see Dr. Freed's note regarding this diagnosis 9. History of pulmonary embolism: Patient takes Eliquis 5 mg twice daily chronically Currently on Lovenox full dose. I switched to Lovenox for ease of discontinuance in case patient needs a trach early next week Held currently due to bright red blood per rectum 10. Type 2 diabetes mellitus without complication, without long-term current use of insulin: Blood sugars running 70 up to 150 on current decreased Lantus PDMP PDMP Reviewed: Not Reviewed Attestations Medical Necessity Statement*: Patient remains in hospital for treatment of ESBL UTI, right lung atelectasis and stabilization of respiratory status before transfer to long-term facility Coding Level of Care Code 33229 Diagnoses Urinary tract infection due to ESBL Klebsiella N39.0; B96.89 Metabolic alkalosis with respiratory acidosis E87.4 Acute hypernatremia E87.0 Pulmonary edema J81.1 Acute respiratory failure J96.00 Bilateral lower leg cellulitis L03.116; L03.115 Chronic diastolic heart failure I50.32 Centrilobular emphysema J43.2 COPD type: emphysema Emphysema type: centrilobular History of pulmonary embolism Z86.711 Type 2 diabetes mellitus without complication, without long-term current use of insulin E11.9 Diabetes mellitus watermelon inspector insulin use: without watermelon inspector use Diabetes mellitus complication status: without complication Time Spent (min) 35
--- NOTE | 2025-01-27 14:13 | XRR_ITS ---
PROCEDURE INFORMATION: Exam: XR Chest Exam date and time: 01/27/2025 2:39 PM Age: 65 years old Clinical indication: Device placement; Picc; Prior surgery; Surgery date: 6+ months; Surgery type: Cardiac stent; Additional info: Picc confirmation; Lt side TECHNIQUE: Imaging protocol: Radiologic exam of the chest. Views: 1 view. COMPARISON: CR (CHEST, ) 01/27/2025 9:21 AM FINDINGS: Tubes, catheters and devices: A new PICC line is identified entering from the left and extending to the level near the upper margin of the right mainstem bronchus. No pneumothorax has occurred. Lungs: Unremarkable. No consolidation. Pleural spaces: The right hemithorax is now fatimah out consistent with a substantial increase in pleural fluid since the prior study. There is new vague opacity seen in the left lung base potentially reflecting developing left pleural fluid. No additional change has occurred. Heart/Mediastinum: Unremarkable. No cardiomegaly. Bones/joints: Unremarkable. XR/XR chest 1V portable [id number] IMPRESSION: 1. No complication following left-sided PICC line placement. 2. Substantial increase in right hemithorax opacity consistent with worsening pleural effusion. 3. Probable new small left pleural effusion.
[2025-01-27] MEDS: morphine 4 mg/mL SDV 1 mL 2 MG IVP ×2 (15:03→19:37)
--- NOTE | 2025-01-27 16:03 | P.PN_ITS ---
Subjective 2 Subjective: Partha Roe is a 65 year old male COPD, sarcoidosis diagnosed in 2018, biopsy-proven on 20 mg of prednisone since then attempting to wean off gets admitted to the hospital with worsening shortness of breath was placed on BiPAP and I was consulted for further management Patient was gradually weaned off of prednisone. CT scan done recently does not have any evidence of any lung nodules or evidence of sarcoidosis. He was on albuterol and Trelegy for his COPD. Outpatient labs showed normal alpha-1 antitrypsin levels, TERRA and ESR levels are normal This admission patient comes to the ER with fever weakness and low blood pressure. Patient had had leg cellulitis for the last 2 days becoming woozy and foul-smelling. He was found to be in septic shock and admitted to the hospital. Fluid bolus given. Empirically started on IV IV vancomycin and meropenem. Creatinine was found to be elevated at 1.7. Patient was also treated for COPD Exacerbation with Pulmicort twice daily and DuoNebs every 6 hours Labs were consistent with white count of 19. ABG shows a pH of 7.23, pCO2 of 41 we will start her on BiPAP and tolerating it well. CT chest showed no PE and some bibasilar infiltrates in the dependent portion of the chest possible pneumonia mucous plugging bilateral lower lobes. 01/20/2025 Patient decompensated last night and had to be urgently intubated. Became more dyspneic prior to intubation. Respiratory rate went up to 21 prior to intubation and became lethargic. Did not need pressors. Currently on tidal volume of 370 mL, respiratory rate of 14 FiO2 of 30%. On propofol and fentanyl drips for sedation. 01/21/2025 Patient is on the ventilator tolerating tidal volume of 370 mL, FiO2 of 30%. Satting 96% peripherally. On propofol at 50 and fentanyl at 75 mics. Getting free water flushes. 01/22/2025 Tolerating ventilator well. PF ratio is improved to 300s but mentation is not appropriate yet. On Versed and fentanyl drips 01/23/2025 Patient still has a lot of thick secretions via ET tube. Chest x-ray showed pulmonary vascular congestion although could be pneumonia as well. Bronchoscopy performed today. Good urine output. 01/24/2025 Very minimal ETT secretions. Still very volume overloaded. Bronchoscopy done yesterday. Secretions. Mental status still not appropriate for extubation. On Precedex 0.5. Wakes up and follows commands but very weak still. 01/25/2025 Minimal ET tube secretions. Awake following commands. Still having some apneic episodes. Off of all sedation. 01/27/2024 Had an episode of mucous plugging overnight where he had to be placed on high percent FiO2 on the ventilator briefly with aggressive suctioning. This morning he looks awake and alert following commands, good cough. Vent settings of the same on 35% FiO2 satting 100% currently. 01/27/2025 Patient has been having mucous plugging issues. Did get extubated on high flow nasal cannula currently 50 L / 30%. Chest x-ray showed complete atelectasis of the right side. He is awake and following commands. Not participating in chest vest therapy well. Complains of back pain. Review of systems-cannot be obtained patient is intubated and sedated Vitals/I&O/Wt Last Vital Signs Temp 98.3 F 01/27/25 06:00 Pulse 108 H 01/27/25 15:25 Resp 22 H 01/27/25 15:21 BP 80/56 01/27/25 14:00 Pulse Ox 94 01/27/25 15:21 O2 Del Method Heated High Flow 01/27/25 15:20 O2 Flow Rate 50 01/27/25 15:21 FiO2 30 01/27/25 15:21 01/27/25 01/27/25 01/27/25 06:59 14:59 22:59 Intake Total 408.333 / 902.083 400 / 400 47.125 / 447.125 Output Total 2100 / 5300 50 / 50 Balance -1691.667 / -4397.917 350 / 350 47.125 / 397.125 Weight last 48 hrs Weight 155 lb 6.814 oz Physical Exam 2 Narrative: per RN General: alert, NAD appears weak HEENT: conj clear, EOMI, PERRL Neck: supple Pulmonary: Right-sided diminished breath sounds Cardiovascular: rrr, nl s1s2, no mrg Abdomen: soft, nt, nd, no r/g, Extremities: pulses +, no edema Neuro-very weak Agree with above exam Urinary Catheter Management: Plaza: Cath Placed During This Visit: yes Reason for Continuing Indwelling Catheter: Accurate Measurement of Urinary Output in Critically Ill Patients Urinary Catheter Date of Insertion: 01/27/25 Urinary Catheter Time of Insertion: 08:52 Data 01/27/25 04:46 01/27/25 04:46 Micro: Microbiology 01/27/25 08:20 Blood Culture - Preliminary Blood SPECIMEN COLLECTED 01/27/25 08:19 Blood Culture - Preliminary Blood SPECIMEN COLLECTED 01/23/25 13:05 Fungal Smear - Preliminary Other Source 01/23/25 13:05 Mycobacterial Smear - Preliminary Body Fluids - Bronchial 01/23/25 13:05 Gram Stain - Final Other Source Body Fluid Culture - Final Staphylococcus haemolyticus Purnima albicans A&P Assessment and plan 1. COPD (chronic obstructive pulmonary disease): Plan: # Septic shock-most likely due to bilateral lower extremity cellulitis as well as pneumonia -Patient's lower extremities are most likely the source of his sepsis although pneumonia sputum cultures pending obtain 01/25/2025. Status post bronchoscopy 01/25/2025. No growth till 01/26/2025, cultures reviewed today personally. -Urine cultures positive for Klebsiella 01/16/2025 - Endorgan damage is renal as well as hemodynamic collapse - Continue broad-spectrum antibiotics with meropenem-7 days of antibiotics completed stop today. - Levo has been off. - Labs reviewed-01/26/2025-no growth till date on cultures # Bilateral lower leg extremity cellulitis/sepsis Overall improvement noted dressing changes per Dr. Noel. Unreliable weight checks. Clinically looks less edematous overall. # Acute on chronic hypercapnic/hypoxic respiratory failure-most likely secondary to acute pulmonary edema/acute congestive heart failure and pneumonia -Vent days #7, intubated, extubated 01/26/2025 On high flow nasal cannula wean off as tolerated - Chest x-ray reviewed by me personally 01/27/2025-shows complete atelectasis with progression on during the day Urine output 2700 mL 01/26/2025.-4 L out Continue DuoNebs along with Pulmicort Brovana continue -Continue steroids- prednisone daily # Right lung complete atelectasis Most likely mucous plugging. Did have a PICC line placed today. Will get CT chest to make sure he does not have any underlying other causes such as pleural effusion. - Will try EZ Pap therapy along with chest vest every 4 hours. Started Hypersal solution nebs and Mucinex. - I cautioned the that he might need to be reintubated if he does not recover. She is agreeable to this most likely will get trach right after. Shock-most likely hypovolemic# 4 L overnight -On Diamox currently stopped Lasix - On Levophed drip at 6 wean off as tolerated # Most likely obstructive sleep apnea needs to use BiPAP at night - Having apnea episodes, all sedation on hold currently due to. # Bilateral pleural effusions-most likely congestive heart failure related - Continue Diamox. pH is 7.5. # Hypernatremia Labs reviewed 01/26/2025. Sodium has normalized to 141 today 01/27/2025. # Acute encephalopathy-resolved # Hypokalemia Resolved # Acute COPD exacerbation -Continue bronchodilators, steroids changed 01/24/2025--changed over to 20 mg prednisone today 01/26/2025 # Probable bilateral pneumonia -CT scan reviewed did not show any PE but did show mucous plugging in the bilateral lower lobes suggestive of pneumonia close to the diaphragm -Antibiotics as above- -Urine growing gram-negative rods but may not be true UTI recommend changing catheter and checking another UA. All others NGTD. Staph epi in 1 out of 2 blood cultures most likely contaminant NGTD 01/25/2025 other than Klebsiella in urine -Status post bronchoscopy 01/23/2025-BAL from bilateral lower lobes collected and sent for cultures. Frothy secretions noted on clear mother congestive heart failure versus pneumonia or combination of both. Airways look very edematous and boggy-no growth till date reviewed today 01/26/2025, Merrem discontinued 01/26/2025. # Bilateral lower leg cellulitis-severe -Currently covered with meropenem. Good anaerobic and beta-lactam coverage vancomycin discontinued 01/23/2025, Merrem discontinued 01/26/2025-completed 7- day course -Wrapping legs and arms in place. Appreciate Dr. Mensah' help. # History of PE -On full dose Lovenox currently to replace per home dose Eliquis. Hemoglobin stable 10. Okay to start Eliquis # Mucous plugging -Continue DuoNebs and bronchodilators with steroids. Continue Mucinex to help mobilize secretions. # Obesity # Sarcoidosis -Not active at this time. Recent TERRA and ESR labs were low when last checked in clinic recently. # MICHELLE -Improved. # Acute lactic acidosis -Improved # Anemia -most likely sepsis induced. Not seeing any obvious source of bleeding currently. he is Hemoccult positive but not actively bleeding. Agree with Protonix 40 mg IV twice daily, will start anticoagulation soon. # Hypoalbuminemia Maintenance meds -Maintain glucose levels and keep blood glucose 140-180. Avoid hypoglycemia. tube feeds at goal. Good bowel regimen. May discontinue lactulose by tomorrow. -DVT GI prophylaxis with protonix. Due to cellulitis SCDs cannot be placed leg wrappings ongoing Full code Goals of care discussion-discussed case with who is at bedside today on 01/20/2025,01/21. She is agreeable to the current plan of care. 01/25/2025-she is agreeable to trialing extubation this weekend and if he fails due to his apnea episodes we would reintubate him. Discussed with Dr. Hodges. Plan to treat him if he fails by early next week. 01/27/2025. Got extubated yesterday but decompensating again today due to right atelectasis. May get intubated. The high probability of a clinically significant, sudden or life threatening deterioration of the patient's [Respiratory, sepsis] system(s) required my full and direct attention, intervention and personal management. The critical care time is as shown. This time is in addition to time spent performing any reported procedures but includes the following: [x] Data and vital sign review and interpretation [x] Patient assessment, examination and intervention [x] Documentation [x] Medication orders and management Critical Care Time (min): 45 Telemedicine Consent Patient seen today via Telemedicine by agreement and consent of patient.? Telemedicine technology used during the visit includes audio and, as available, review of images.? The patient encounter is appropriate and reasonable under the circumstances given the patient?s particular presentation at this time.? The patient has been advised of the potential risks and limitations of this mode of treatment (including but not limited to the absence of in-person examination) and has agreed to be treated in a remote fashion in spite of them.? Any, and all, of the patient?s/patient?s family?s questions on this issue have been answered and I have made no promises or guarantees to the patient. The patient has also been advised to contact this office for worsening conditions or problems, and seek emergency medical treatment and/or call 911 if the patient deems either necessary PDMP PDMP Reviewed: Not Reviewed Attestations 2 Medical Necessity Statement*: On Levophed drip Coding Level of Care Code Critical Care >/= 30 minutes Diagnoses COPD (chronic obstructive pulmonary disease) J44.9
--- NOTE | 2025-01-27 16:30 | CTR_ITS ---
PROCEDURE INFORMATION: Exam: CT Chest Without Contrast; Diagnostic Exam date and time: 01/27/2025 5:03 PM Age: 65 years old Clinical indication: Shortness of breath and other: Right lung atelectasis vs effusion TECHNIQUE: Imaging protocol: Diagnostic computed tomography of the chest without contrast. Radiation optimization: All CT scans at this facility use at least one of these dose optimization techniques: automated exposure control; mA and/or kV adjustment per patient size (includes targeted exams where dose is matched to clinical indication); or iterative reconstruction. COMPARISON: CT angio chest PE protcl [id number] 01/17/2025 6:06 PM RADIATION DOSE METRICS: Total DLP (mGy-cm): 941.51 FINDINGS: Tubes, catheters and devices: Left-sided PICC line terminating at the level of the azygos vein. No complication from line placement is evident. Surgical clips in the right axilla are also apparent. Lungs: Granulomatous calcification within the right middle lobe. 99.9% right lung atelectasis. This results in rightward shift of mediastinal structures. There is minimal aeration identified in the proximal right middle lobe segmental bronchi. Mucous plugging or low-attenuation soft tissue is suggested within the right mainstem bronchus showing attenuation of 24.6 Hounsfield units. This compares to pleural fluid which has a attenuation of 8 Hounsfield units.. A small air-fluid level is apparent just distal to the tracheal bifurcation (3/20). Granulomatous calcifications within the right pulmonary hilum and inferior mediastinum. Pleural spaces: Large right pleural effusion. Small to medium left pleural effusion. Heart: The heart size is within normal limits. There is no pericardial effusion. There are coronary artery atherosclerotic changes present. Lymph nodes: Unremarkable. No enlarged lymph nodes. Vasculature: Unremarkable. No aortic aneurysm. Gallbladder and biliary ducts: Post cholecystectomy changes. Spleen: Splenic granulomatous calcifications are seen. Bones/joints: Severe osteoporosis is present with multiple subacute and chronic anterior wedge compression fractures of the thoracic spine. Old moderate compression fractures are seen from T4 through T7, T9 through T11, and L1 through L3. With acrylate is identified within the T10 vertebral body. There is acute compression of the T6 vertebral body centrum with increased density due to trabecular compression. Subacute to chronic compression is also suggested in the T12 vertebral body centrum. Soft tissues: See Tubes, catheters and devices finding. CT/CT chest wo con [id number] IMPRESSION: 1. Appropriately positioned left-sided PICC line. 2. Old granulomatous disease. 3. Endobronchial obstruction in the right mainstem bronchus where low-attenuation material is identified, greater than that of pleural fluid, probably reflecting mucous plugging. This has resulted in nearly complete atelectasis of the right lung. Rightward shift of mediastinal structures is present as a result. 4. Old granulomatous disease affecting the right lung, mediastinal lymph nodes and spleen. 5. Severe osteoporosis with multiple chronic and subacute thoracic compression fractures, and acute compression injury at T8. No burst fractures are noted.
[2025-01-27] MEDS: midazolam 1 mg/mL INJ 2 mL 4 MG IVP (18:11)
[2025-01-27] MEDS: propofol 10 mg/mL SDV 20 mL 40 MG IVP (18:12)
[2025-01-27] MEDS: succinylcholine 20 mg/mL SDV 10mL IVP (18:12)
--- NOTE | 2025-01-27 18:15 | PM.ACPR ---
Acute Procedures Intubation: Time out performed: Yes Sedative: versed (2 mg and propofol 40 mg) Mg given: 2 Paralytic: succinylcholine Mg given: 50 Laryngoscope: fiber optic video scope Assist device used: Bougie ET tube size: 8 Tube secured depth (cm): 24 Tube secured location: lips Tube placement confirmation: visualized tube passing through cords, equal breath sounds bilaterally, confirmation by capnometry and color change noted Patient tolerated procedure: well and no complications Intubation complications: none Additional comments: Patient with recurrent mucous plugging right mainstem bronchus. Discussion was held with patient and Dr. Freed as well as bedside nurse and RT. Patient was given to 40 mg propofol and became verbally unresponsive. I was able to visualize the cords but patient still had some jaw clenching. He was given 50 mg of succinylcholine and 2 mg of Versed. Anayeli 3 was used to visualize but there is significant secretions which were suctioned. I switched to video scope and visualized to passing through the cords. Color change confirmed and he was bagged up to the 100% from 85% and placed on ventilator
--- NOTE | 2025-01-27 18:18 | PC.NURSE ---
Intubation: Time out performed, Dr hodges, RT and this nurse at bedside. DR. Hodges Ordered 40 IVP propofol, 50mg succinylcholine, and 4mg versed IVP. 40 Propofol given and patient assessed for sedation, 50succ given, gave verbal order to give 2 of versed. Patient successfully intubated at 1800. 25@ lip
--- NOTE | 2025-01-27 18:26 | XRR_ITS ---
PROCEDURE INFORMATION: Exam: XR Chest Exam date and time: 01/27/2025 6:31 PM Age: 65 years old Clinical indication: Device placement; Ett placement (vent status); Prior surgery; Surgery date: 6+ months; Surgery type: Cardiac stents; Additional info: Ett/og placement TECHNIQUE: Imaging protocol: Radiologic exam of the chest. Views: 1 view. COMPARISON: CT chest [facility] [id number] 01/27/2025 5:03 PM FINDINGS: Tubes, catheters and devices: Endotracheal tube tip is in satisfactory position at the level of the aortic arch. Left-sided PICC tip is in the superior vena cava. Nasogastric tube tip is in the distal stomach. Lungs: There is improved aeration in the right lung when compared to the earlier chest x-ray with some residual infiltrate in the right upper lung field. Pleural spaces: There are moderate bilateral pleural effusions. No pneumothorax. Heart/Mediastinum: Heart borders are obscured. Bones/joints: Unremarkable. XR/XR chest 1V portable [id number] IMPRESSION: 1. Endotracheal tube tip is in satisfactory position at the level of the aortic arch. Left-sided PICC tip is in the superior vena cava. Nasogastric tube tip is in the distal stomach. 2. There is improved aeration in the right lung when compared to the earlier chest x-ray with some residual infiltrate in the right upper lung field. 3. There are moderate bilateral pleural effusions.
--- NOTE | 2025-01-27 18:36 | PC.NURSE ---
Addendum entered by SKEY Morales RN 01/27/25 18:39: witness waste of medications post intubation Original Note: Waste of remaining intubation medications. Propofol, versed, succinylcholine witnessed by SKYE Morales RN.
[2025-01-27] MEDS: propofol 1,000 MG/100 ML INJ 50 MG (19:09)
[2025-01-27] MEDS: midazolam 1 mg/mL INJ 2 mL 2 MG IVP (19:16)
--- NOTE | 2025-01-27 19:57 | ECG_ITS ---
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: : 1960 Requested By: Afua Green Order Number: [id number] Reading MD: DURAN OCONNELL Measurements Intervals [place] Rate: 95 P: 14 PA: 105 QRS: 21 QRSD: 91 T: 74 QT: 348 QTc: 438 Interpretive Statements SINUS RHYTHM WITH SHORT PA INTERVAL LOW QRS VOLTAGE IN PRECORDIAL LEADS [QRS DEFLECTION < 1.0 mV IN CHEST LEADS] Compared to ECG 01/17/2025 14:39:13 Short PA interval now present Low QRS voltage now present Sinus tachycardia no longer present T-wave abnormality no longer present Electronically Signed On 01-27-2025 22:23:00 CDT by DURAN OCONNELL [email or web address]
[2025-01-27] MEDS: sodium chloride 3.5% neb 4 mL Neb INHALATION (21:16)
[2025-01-27] MEDS: propofol 1,000 MG/100 ML INJ 21.15 MG IV (22:35)
[2025-01-27] MEDS: norepinephrine 4 MG/250 ML BAG 22.5 MG IV (22:36)
--- NOTE | 2025-01-27 23:06 | PC.NURSE ---
verbal obtained from Dr. Tejada to hold cardizem unless HR increases to 120 and to hold tonights dose of melatonin tube feeds started
[2025-01-28] VITALS (110 sets, daily range): BP systolic 77–130; BP diastolic 47–82; PULSE 82–126; RESP 15–115; TEMP 36.4–38.2; O2SAT 89–100
[2025-01-28] MEDS: morphine 4 mg/mL SDV 1 mL 2 MG IVP (00:37)
--- NOTE | 2025-01-28 02:08 | PC.NURSE ---
called Dr. Watkins relayed that patient has been bucking the vent, restless, agitated. Doctor edilia verbal orders for fentanyl and versed
[2025-01-28] MEDS: fentaNYL 1,000 MCG/100 ML BAG 2.5 MCG IV (02:15)
[2025-01-28] MEDS: propofol 1,000 MG/100 ML INJ 21.15 MG IV (03:13)
[2025-01-28 04:56] LABS: Hematocrit 30.1 % (37-53); Hemoglobin 9.10 g/dL (11.27-16.99); Mean Corpuscular HGB Conc 30.2 g/dL (30-55); Mean Corpuscular Hemoglobin 31.1 pg (27-33); Mean Corpuscular Volume 102.7 fl (82-101); Nucleated Red Blood Cells % 0.1 %; Platelet Count 221 10^3/cmm (157-399); Red Blood Count 2.93 10^6/uL (3.85-5.65); White Blood Count 25.89 10^3/uL (3.29-11.43)
[2025-01-28] MEDS: sodium chloride 3.5% neb 4 mL Neb INHALATION ×3 (05:17→20:00)
[2025-01-28 05:18] LABS: Blood Urea Nitrogen 26 mg/dL (8-23); Calcium 8.1 mg/dL (8.5-10.5); Carbon Dioxide 26 mmol/L (22-29); Chloride 98 mmol/L (98-107); Creatinine Clr Calc Pharmacy 136.2900; Glucose 150 mg/dL (65-115); Osmolality Calculated 296 mOsm/kg (285-295); Sodium 139 mmol/L (136-145)
[2025-01-28 05:22] LABS: Magnesium 2.2 mg/dL (1.7-2.3)
[2025-01-28 05:24] LABS: Anion Gap 18.7 (5-19); Potassium 3.7 mmol/L (3.5-5.1); Slide Review Slide Review Perform
[2025-01-28] MEDS: polyethylene glycol 3350 Pkt 17 gm PO (06:31)
[2025-01-28] MEDS: lactulose oral liq 20 gm/30 mL UDC 10 GM PO (06:31)
--- NOTE | 2025-01-28 06:53 | PC.NURSE ---
bertrand held Dr. Mallory daniel
[2025-01-28] MEDS: ARFORMOTEROL 15 MCG/2 ML NEB INHALATION ×2 (07:48→20:00)
[2025-01-28] MEDS: sucralfate 1 gm/10 mL Oral Liq UDC PO ×4 (07:54→21:45)
[2025-01-28] MEDS: propofol 1,000 MG/100 ML INJ 16.92 MG IV (07:55)
--- NOTE | 2025-01-28 08:00 | XR_ITS ---
WS: [id number] PORTABLE CHEST HISTORY: Follow-up right lung atelectasis and pleural effusions COMPARISON: 01/27/2025, 01/26/2025 Patient is intubated. Endotracheal and nasogastric tubes appear appropriate. Left-sided PICC line is present. Interval improvement in aeration of the RIGHT lung since most recent exam. RIGHT upper lobe is reexpanded. Consolidation obscuring the LEFT lower lobe has mildly progressed. There is increasing consolidation over the LEFT hilum. Small bilateral pleural effusions. Part of the obscuration at the LEFT lung base is probably due to fluid along with atelectasis and/or pneumonia. Cardiac size: Obscured by the airspace disease. Mediastinum/Aorta: Mild atherosclerosis aorta. No osseous abnormality seen. XR/XR chest 1V portable [id number] IMPRESSION: 1. Good position of the nasogastric and endotracheal tubes. 2. Significant improvement in aeration of the RIGHT upper lobe since the most recent exam. Interval reexpansion of the RIGHT upper lobe. 3. Increasing consolidation at the LEFT lung base and over the LEFT hilum. Amparo pect pneumonia. 4. Small bilateral pleural effusions.
[2025-01-28] MEDS: midazolam hcl 100 MG/100 ML BAG IV (08:41)
[2025-01-28] MEDS: norepinephrine 4 MG/250 ML BAG 30 MG IV (09:28)
[2025-01-28] MEDS: pantoprazole 40 mg SDV IVP (10:48)
--- NOTE | 2025-01-28 11:34 | PM.PN ---
Subjective Subjective: 65-year-old male reintubated yesterday evening by me for mucous plugging in the right lung and atelectasis with mediastinal shift to the right. X-ray this morning shows that is resolved and RT was able to suction up a mucous plug yesterday sent to the lab but grew only normal erickson. Patient has been on multiple antibiotics. His white count remains elevated. The left lower lung shows infiltrate on today's x-ray. ET tube in good position 24 cm at the lis and NG tube in good position Vitals/I&O/Wt Last Vital Signs Temp 100.8 F H 01/28/25 08:00 Pulse 105 H 01/28/25 10:00 Resp 17 01/28/25 10:01 BP 91/58 01/28/25 10:00 Pulse Ox 29 L 01/28/25 10:01 O2 Del Method Mechanical Ventilation 01/28/25 07:40 O2 Flow Rate 50 01/27/25 15:21 FiO2 40 01/28/25 10:01 01/27/25 01/28/25 01/28/25 22:59 06:59 14:59 Intake Total 726.375 / 1126.375 144.768 / 1271.143 462.683 / 462.683 Output Total 350 / 400 550 / 950 Balance 376.375 / 726.375 -405.232 / 321.143 462.683 / 462.683 Weight last 48 hrs Weight 70.1 kg Weight 70.5 kg Physical Exam Narrative: General Well-developed chronically ill-appearing male intubated and sedated. Patient is responsive but not purposeful at this time CV regular rate and rhythm Lungs diminished in the left base and lesser diminishment in the right base. Upper lung cortez are with good air movement Abdomen mildly distended no tenderness Trace to 1+ edema Right arm 2+ edema left arm 1+ edema Psych: OTHER: Urinary Catheter Management: Plaza: Cath Placed During This Visit: yes Reason for Continuing Indwelling Catheter: Accurate Measurement of Urinary Output in Critically Ill Patients Urinary Catheter Date of Insertion: 01/27/25 Urinary Catheter Time of Insertion: 08:52 Data 01/28/25 04:08 01/28/25 04:08 Micro: Microbiology 01/27/25 18:15 Gram Stain - Final Sputum - Endotracheal Tube Aspirate Sputum Culture - Preliminary 01/23/25 13:05 Fungal Smear - Final Other Source 01/27/25 08:20 Blood Culture - Preliminary Blood NEGATIVE TO DATE 01/27/25 08:19 Blood Culture - Preliminary Blood NEGATIVE TO DATE A&P Assessment and plan 1. Urinary tract infection due to ESBL Klebsiella: Start Levaquin 500 mg daily which was proven to be effective based on last sensitivity. Plaza has been changed 2. Metabolic alkalosis with respiratory acidosis: Improved decrease acetazolamide to 250 mg daily for another 5 days 3. Acute hypernatremia: Resolved 4. Pulmonary edema: Blood pressures currently cheetah fluid responsive patient is severely malnourished. Diuretics 5. Chronic diastolic heart failure: Patient is cheetah fluid responsive and currently diuretics held for now except for the acetazolamide. Patient has been started on albumin 6. Centrilobular emphysema: Carries a diagnosis of sarcoidosis. Please see Dr. Freed's note regarding this diagnosis 7. History of pulmonary embolism: Patient takes Eliquis 5 mg twice daily chronically Currently on Lovenox full dose. I switched to Lovenox for ease of discontinuance in case patient needs a trach early next week Held currently due to bright red blood per rectum 8. Type 2 diabetes mellitus without complication, without long-term current use of insulin: Blood sugars running 70 up to 150 on current decreased Lantus PDMP PDMP Reviewed: Not Reviewed Attestations Medical Necessity Statement*: Patient jason in the ICU intubated receiving albumin and tube feedings. 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
--- NOTE | 2025-01-28 11:57 | PHA.VACGOAL ---
Vancomycin Goal - Goal Vancomycin Goal:: 15-20 mg/L Vancomycin Indication:: Other - Therapy Current therapy:: Other Antibiotic (LEVAQUIN) Day of therpy:: Day []of [] . Actual body weight (kg): 154 lb 8.705 oz - Data Labs: WBC 25.89 10^3/uL (3.29-11.43) H 01/28/25 04:08 Corrected WBC Cancelled 01/19/25 07:46 RBC 2.93 10^6/uL (3.85-5.65) L 01/28/25 04:08 Hgb 9.10 g/dL (11.27-16.99) L 01/28/25 04:08 Hct 30.1 % (37-53) L 01/28/25 04:08 MCV 102.7 fl (82-101) H 01/28/25 04:08 MCH 31.1 pg (27-33) 01/28/25 04:08 MCHC 30.2 g/dL (30-55) 01/28/25 04:08 RDW 16.1 % (12.1-15.1) H 01/28/25 04:08 Sodium 139 mmol/L (136-145) 01/28/25 04:08 Potassium 3.7 mmol/L (3.5-5.1) 01/28/25 04:08 Chloride 98 mmol/L (98-107) 01/28/25 04:08 Carbon Dioxide 26 mmol/L (22-29) 01/28/25 04:08 Anion Gap 18.7 (5-19) 01/28/25 04:08 BUN 26 mg/dL (8-23) H 01/28/25 04:08 Creatinine 0.5 mg/dL (0.7-1.2) L 01/28/25 04:08 GFR Calculation 167.9 mL/min (90-130) H 01/28/25 04:08 Last dialysis session:: N/A Treatment plan:: new consult Regimen:: PREVIOUS VANC HISTORY FROM THIS VISIT. LAST DOSE RECEIVED ON 01/21. RENAL FUNCTION HAS IMPROVED SINCE LAST DOSE. RESTARTING VANC WITH A LOADING DOSE OF 2000 MG X 1 MAINTENANCE DOSE OF 1000 MG Q8H PER DOSING PROTOCOL Follow up:: WILL CONTINUE TO MONITOR AND FOLLOW UP DAILY
[2025-01-28] MEDS: fentaNYL 1,000 MCG/100 ML BAG 10 MCG IV (12:31)
[2025-01-28] MEDS: piperacillin-tazobactam 3.375 GM in sodium chloride 0.9% (plus) 50 ML IV ×2 (12:32→19:47)
--- NOTE | 2025-01-28 13:54 | PC.NUTR ---
Recieved consult for tube feeding goals. Recommend Glucerna 1.5 goal rate of 40mls/hr with FWF 100mls Q4H or per MD discretion. Glucerna @ 40mls/hr will provide 1440kcals or 87% Pt's estimated calorie needs and 80 grams protein or 94% Pt's estimated protein needs and 787+600mls or 84% Pt's estimated fluid needs. Glucerna @ 50mls/hr will provide 1800kcals or 109% Pt's estimated kcal needs and 99.6 grams protein or 120% Pt's estimated protein needs and 787+300 or 66% Pt's estimated fluid needs.
--- NOTE | 2025-01-28 14:37 | PC.SOCIAL ---
IMM Update pg 2 of IMM Updated and reviewed w/ patients . Copy provided and copy dated, initialed and placed in chart.
[2025-01-28] MEDS: albumin 25 G/100 ML BAG 60 G IV (15:43)
--- NOTE | 2025-01-28 15:56 | PC.NURSE ---
Addendum entered by Umm Verduzco RN 01/28/25 15:57: witness waste of medications Original Note: propofol wasted with Umm Verduzco RN. See MAR for amount wasted
--- NOTE | 2025-01-28 17:49 | PM.CONSULT ---
Providers/Reason For Consult Consulting Physician/Specialty*: Dr. Alonzo Carpenter MD Otolaryngology, Head & Neck Surgery Reason for Consult*: Respiratory failure Requesting Physician: Dr. Devendra Hodges MD Attending Physician: Devendra Hodges MD Primary Care Provider: Natalia Alvarado NP History of Present Illness History of Present Illness Partha Roe is a 65 year old male with a h/o pulmonary sarcoidosis who was admitted with respiratory failure and sepsis who has been intubated on a ventilator for approximately 12 days. The patient has failed extubation. The patient's Hospitalist team consulted me to consider tracheotomy to enhance/improve pulmonary toilet. Review of Systems General: Reports: 10 or more systems reviewed and unremarkable except in HPI and below Medications/Allergies Home Medications ?Medication ?Instructions ?Recorded ?Confirmed ?Last Taken ?Type simvastatin 40 mg tablet 40 mg PO QPM #30 tabs 05/08/24 01/16/25 01/15/25 Rx nitroglycerin 0.4 mg sublingual 0.4 mg sublingual Q5M PRN chest 05/16/24 01/16/25 Unknown Rx tablet pain #30 tabs empagliflozin 10 mg tablet 10 mg PO DAILY #30 tabs 08/20/24 01/16/25 01/16/25 Rx (Jardiance) metoprolol succinate 25 mg 12.5 mg (1/2 x 25 mg) PO BID #60 08/20/24 01/16/25 01/16/25 Rx tablet,extended release 24 hr tabs aspirin 81 mg tablet 81 mg PO DAILY 10/01/24 01/16/25 01/16/25 History brimonidine 0.2 % eye drops 1 drp ophthalmic (eye) BID 12/04/24 01/16/25 01/16/25 History dorzolamide 2 % eye drops 1 drp ophthalmic (eye) BID 12/04/24 01/16/25 01/16/25 History imiquimod 5 % topical cream packet See Rx Instructions .Route .COMPLEX 12/04/24 01/16/25 12/04/24 History albuterol sulfate 90 mcg/actuation 2 puff inhalation Q6H PRN 12/06/24 01/16/25 Unknown Rx aerosol inhaler (Ventolin HFA) breathing #8.5 grams gabapentin 100 mg capsule 100 mg PO BID #60 caps 12/10/24 01/16/25 01/16/25 Rx apixaban 5 mg tablet (Eliquis) 5 mg PO BID #60 tabs 12/14/24 01/16/25 01/16/25 Rx Nebulizer with tubing and filter #1 ea 12/17/24 01/16/25 Unknown Rx fluticasone fur. 100 mcg-umeclid 1 inh inhalation DAILY #28 ea 12/17/24 01/16/25 01/16/25 Rx 62.5 mcg-vilant 25 mcg inhalat.powder (Trelegy Ellipta) buspirone 7.5 mg tablet 7.5 mg PO TID PRN Anxiety 12/18/24 01/16/25 Unknown History albuterol sulfate 2.5 mg/3 mL 2.5 mg (3 mL) inhalation Q4H PRN 12/20/24 01/16/25 Unknown Rx (0.083 %) solution for nebulization Wheezing #30 mL glucometer testing kit #1 12/21/24 01/16/25 Unknown Rx insulin aspart U-100 100 unit/mL See Rx Instructions .Route 12/21/24 01/16/25 01/16/25 Rx (3 mL) subcutaneous pen (Novolog .COMPLEX #15 mL FlexPen U-100 Insulin aspart) insulin glargine 100 unit/mL (3 15 unit (0.15 mL) SUBCUT QPM 30 12/21/24 01/16/25 Unknown Rx mL) subcutaneous pen (Basaglar days #15 mL KwikPen U-100 Insulin) furosemide 40 mg tablet 40 mg PO QAM PRN edema/heart 01/16/25 01/16/25 01/16/25 History prednisone 20 mg tablet 20 mg PO DAILY 01/16/25 01/16/25 Unknown History sulfamethoxazole 800 1 tab PO .MON, WED, FRI 01/16/25 01/16/25 01/16/25 History mg-trimethoprim 160 mg tablet losartan 50 mg tablet 50 mg PO DAILY blood pressure #30 01/25/25 Unknown Rx tabs Allergies Allergy/AdvReac Type Severity Reaction Status Date / Time cat dander Allergy Mild ADR-Swelling Verified 01/16/25 14:14 of the Eye ibuprofen Allergy Unknown Unknown Verified 01/16/25 14:14 menthol Allergy Unknown Verified 01/16/25 14:14 ketorolac (From Toradol) AdvReac renal Verified 01/16/25 14:14 failure Current Medications Generic Name Dose Route Start Last Admin Trade Name Faisal PRN Reason Stop Dose Admin Acetaminophen 650 mg 01/16/25 18:42 01/18/25 22:43 Acetaminophen 325 Mg Tablet PO 650 mg Q6H PRN Administration Mild/Mod Pain Or Temp >/= 101 Acetazolamide 250 mg 01/28/25 05:00 01/28/25 06:32 Acetazolamide 250 Mg Tablet PO 02/02/25 04:59 250 mg DAILY GENA Administration Albuterol/Ipratropium 3 ml 01/20/25 12:00 01/28/25 15:51 Ipratropium-Albuterol 3 Ml Neb INHALATION 3 ml Q4H.RESPIRATORY GENA Administration Aspirin 81 mg 01/28/25 06:15 01/28/25 06:37 Aspirin 81 Mg Chew Tablet PO 81 mg On Hold: 01/28/25 15:35 DAILY GENA Administration Budesonide 0.5 mg 01/16/25 20:00 01/28/25 07:48 Budesonide 0.5 Mg/2 Ml Neb INHALATION 0.5 mg BID.RESPIRATORY GENA Administration Chlorhexidine Gluconate 1 applic 01/19/25 23:03 01/24/25 04:27 Chlorhexidine Gluconate 4% Btl 118 Ml TOPICAL 1 applic DAILY PRN Administration Bed Bath Diltiazem HCl 10 mg 01/24/25 17:45 01/28/25 17:22 Diltiazem 5 Mg/Ml Sdv 5 Ml IVP Not Given Q4H GENA Docusate Sodium 100 mg 01/16/25 18:42 01/28/25 17:02 Docusate Sodium 100 Mg Capsule PO 100 mg BID GENA Administration Gabapentin 100 mg 01/16/25 18:42 01/28/25 17:03 Gabapentin 100 Mg Capsule PO 100 mg BID GENA Administration Guaifenesin 600 mg 01/27/25 17:00 01/28/25 17:03 Guaifenesin 600 Mg Tablet PO 600 mg BID GENA Administration Norepinephrine Bitartrate 4 mg in 250 mls @ 0 mls/hr 01/27/25 08:15 01/28/25 10:37 Levophed IV 6 mcg/min .Q0M GENA 22.5 mls/hr Protocol Titration Per Protocol Propofol 1,000 mg in 100 mls @ 0 mls/hr 01/27/25 18:15 01/28/25 15:51 Diprivan IV Infused .Q0M GENA Titration Protocol Per Protocol Fentanyl 1,000 mcg in 100 mls @ 0 mls/hr 01/28/25 02:15 01/28/25 14:30 Sublimaze IV 75 mcg/hr .Q0M GENA 7.5 mls/hr Protocol Titration Per Protocol Midazolam HCl 100 mg in 100 mls @ 0 mls/hr 01/28/25 02:15 01/28/25 09:30 Versed IV 4 mg/hr .Q0M GENA 4 mls/hr Protocol Titration Per Protocol Piperacillin Sod/Tazobactam 50 mls @ 12.5 mls/hr 01/28/25 12:00 01/28/25 16:58 Sod 3.375 gm/ Sodium Chloride IV Infused Q8H GENA Infusion Albumin Human 25 g in 100 mls @ 60 mls/hr 01/28/25 15:45 01/28/25 17:27 Albumin IV Infused Q12H GENA Infusion Insulin Glargine 15 unit 01/26/25 18:00 01/26/25 17:39 Insulin Glargine 100 Units/1 Ml SUBCUT 15 unit On Hold: 01/26/25 20:59 BIDWM GENA Administration Insulin Human Lispro 0 unit 01/16/25 18:42 01/28/25 17:07 Insulin Lispro 100 Unit/1 Ml SUBCUT 6 unit WM&BEDTIME GENA Administration Protocol Lactulose 10 gm 01/25/25 05:00 01/28/25 06:31 Lactulose Oral Liq 20 Gm/30 Ml Udc PO 10 gm DAILY GENA Administration Protocol Levofloxacin 500 mg 01/28/25 06:00 01/28/25 06:32 Levofloxacin 500 Mg Tablet OG-TUBE 02/04/25 05:59 500 mg DAILY@0600 [facility] Administration Protocol Melatonin 6 mg 01/25/25 21:00 01/27/25 21:02 Melatonin 3 Mg Tablet PO Not Given BEDTIME GENA Midazolam HCl 2 mg 01/27/25 18:56 01/27/25 19:16 Midazolam 1 Mg/Ml Inj 2 Ml IVP 2 mg ONCE PRN Administration agitation Morphine Sulfate 2 mg 01/27/25 18:09 01/28/25 00:37 Morphine 4 Mg/Ml Sdv 1 Ml IVP 2 mg Q2H PRN Administration SEVERE PAIN Pantoprazole Sodium 40 mg 01/18/25 11:33 01/28/25 10:48 Pantoprazole 40 Mg Sdv IVP 40 mg Q12H GENA Administration Polyethylene Glycol 17 gm 01/24/25 09:00 01/28/25 06:31 Polyethylene Glycol 3350 Pkt 17 Gm PO 17 gm DAILY GENA Administration Prednisone 20 mg 01/27/25 05:00 01/28/25 06:35 Prednisone 20 Mg Tablet PO 20 mg DAILY GENA Administration Sodium Chloride 4 ml 01/28/25 14:00 01/28/25 15:51 Sodium Chloride 3.5% Neb 4 Ml Neb INHALATION 4 ml TID.RESP GENA Administration Sucralfate 1 gm 01/18/25 17:00 01/28/25 17:22 Sucralfate 1 Gm/10 Ml Oral Liq Udc PO 1 gm AC&BEDTIME GENA Administration PFSH Acute PFSH: Medical History Urinary tract infection due to ESBL Klebsiella Enrolled in chronic care management Depression Pulmonary embolism Type 2 diabetes mellitus without complication, without long-term current use of insulin 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 Left ureteral calculus 02/09/2023 [facility] Bilateral lower extremity edema Non-smoker COPD (chronic obstructive pulmonary disease) Pulmonary sarcoidosis Hyperlipidemia ASHD (arteriosclerotic heart disease) 2016 stents x2 HTN (hypertension) Surgical History History of eye surgery History of back surgery H/O bilateral cataract extraction S/P PTCA (percutaneous transluminal coronary angioplasty) S/P cholecystectomy S/P skin cancer resection Family History Brother CAD (coronary artery disease) valve replaced Mother Lung disease Denies family history of Diabetes Clotting disorder Dementia Chronic kidney disease (CKD) Suicide Anesthesia complication Bleeding disorder Cancer Stroke Social History Smoking and tobacco/nicotine status: never used tobacco/nicotine Second hand smoke exposure: No Alcohol intake: never Substance/Drug Use: never Vitals/I&O/Wt Last Vital Signs Temp 99.8 F H 01/28/25 15:45 Pulse 100 01/28/25 16:00 Resp 16 01/28/25 17:29 BP 101/64 01/28/25 16:00 Pulse Ox 94 01/28/25 17:29 O2 Del Method Mechanical Ventilation 01/28/25 15:51 O2 Flow Rate 50 01/27/25 15:21 FiO2 40 01/28/25 17:29 01/28/25 01/28/25 01/28/25 06:59 14:59 22:59 Intake Total 144.768 / 1271.143 932.576 / 113.116 8035 / 2082.576 Output Total 550 / 950 Balance -405.232 / 321.143 932.576 / 755.211 1597 / 2082.576 Weight last 48 hrs Weight 70.1 kg Weight 70.5 kg Physical Exam Const: EXAM LIMITATIONS: altered mental status (Sedated and intubated) GENERAL APPEARANCE: well developed HENMT: COMMON NORMALS: normocephalic and atraumatic HEAD & SCALP: normocephalic and atraumatic FACE & SINUS: normal facial exam Neck/C-Spine: COMMON NORMALS: Thyroid normal GENERAL: Yes normal visual inspection and Yes trachea midline THYROID: Thyroid normal Lymph: LYMPHATIC: other (No cervical adenopathy) Chest: COMMONS NORMALS: normal inspection of the chest Urinary Catheter Management: Plaza: Cath Placed During This Visit: yes Reason for Continuing Indwelling Catheter: Accurate Measurement of Urinary Output in Critically Ill Patients Urinary Catheter Date of Insertion: 01/27/25 Urinary Catheter Time of Insertion: 08:52 Data 01/28/25 04:08 01/28/25 04:08 Micro: Microbiology 01/27/25 18:15 Gram Stain - Final Sputum - Endotracheal Tube Aspirate Sputum Culture - Preliminary 01/23/25 13:05 Fungal Smear - Final Other Source 01/27/25 08:20 Blood Culture - Preliminary Blood NEGATIVE TO DATE 01/27/25 08:19 Blood Culture - Preliminary Blood NEGATIVE TO DATE A&P Assessment and plan 1. Acute respiratory failure with hypoxia: Impression: 65 yo wm with a h/o acute respiratory failure with prolonged intubation whose Hospitalist team requests tracheotomy Plan: - Surgical tracheotomy in the OR in the am - Hold tube feeds after midnight - I explained the surgery, its options, and potential risks to the patient's over the phone: she expressed understanding and wishes to proceed with tracheotomy Plan: I was consulted to assist in management of the patient's airway/respiratory failure. PDMP PDMP Reviewed: Not Reviewed Coding Level of Care Code Acute Code for Chg Fwd Diagnoses Acute respiratory failure with hypoxia J96.01
--- NOTE | 2025-01-28 20:06 | P.PN_ITS ---
Subjective 2 Subjective: Partha Roe is a 65 year old male COPD, sarcoidosis diagnosed in 2018, biopsy-proven on 20 mg of prednisone since then attempting to wean off gets admitted to the hospital with worsening shortness of breath was placed on BiPAP and I was consulted for further management Patient was gradually weaned off of prednisone. CT scan done recently does not have any evidence of any lung nodules or evidence of sarcoidosis. He was on albuterol and Trelegy for his COPD. Outpatient labs showed normal alpha-1 antitrypsin levels, TERRA and ESR levels are normal This admission patient comes to the ER with fever weakness and low blood pressure. Patient had had leg cellulitis for the last 2 days becoming woozy and foul-smelling. He was found to be in septic shock and admitted to the hospital. Fluid bolus given. Empirically started on IV IV vancomycin and meropenem. Creatinine was found to be elevated at 1.7. Patient was also treated for COPD Exacerbation with Pulmicort twice daily and DuoNebs every 6 hours Labs were consistent with white count of 19. ABG shows a pH of 7.23, pCO2 of 41 we will start her on BiPAP and tolerating it well. CT chest showed no PE and some bibasilar infiltrates in the dependent portion of the chest possible pneumonia mucous plugging bilateral lower lobes. 01/20/2025 Patient decompensated last night and had to be urgently intubated. Became more dyspneic prior to intubation. Respiratory rate went up to 21 prior to intubation and became lethargic. Did not need pressors. Currently on tidal volume of 370 mL, respiratory rate of 14 FiO2 of 30%. On propofol and fentanyl drips for sedation. 01/21/2025 Patient is on the ventilator tolerating tidal volume of 370 mL, FiO2 of 30%. Satting 96% peripherally. On propofol at 50 and fentanyl at 75 mics. Getting free water flushes. 01/22/2025 Tolerating ventilator well. PF ratio is improved to 300s but mentation is not appropriate yet. On Versed and fentanyl drips 01/23/2025 Patient still has a lot of thick secretions via ET tube. Chest x-ray showed pulmonary vascular congestion although could be pneumonia as well. Bronchoscopy performed today. Good urine output. 01/24/2025 Very minimal ETT secretions. Still very volume overloaded. Bronchoscopy done yesterday. Secretions. Mental status still not appropriate for extubation. On Precedex 0.5. Wakes up and follows commands but very weak still. 01/25/2025 Minimal ET tube secretions. Awake following commands. Still having some apneic episodes. Off of all sedation. 01/27/2024 Had an episode of mucous plugging overnight where he had to be placed on high percent FiO2 on the ventilator briefly with aggressive suctioning. This morning he looks awake and alert following commands, good cough. Vent settings of the same on 35% FiO2 satting 100% currently. 01/27/2025 Patient has been having mucous plugging issues. Did get extubated on high flow nasal cannula currently 50 L / 30%. Chest x-ray showed complete atelectasis of the right side. He is awake and following commands. Not participating in chest vest therapy well. Complains of back pain. 01/28/2025 On levo at 8. But weaning down to 4. Cheater NICOM shows fluid responsiveness. 1 L NS given.. Chest x-ray showed resolution of the right mucous plugging on the right side. On propofol and fentanyl drips. Review of systems-cannot be obtained patient is intubated and sedated Vitals/I&O/Wt Last Vital Signs Temp 99.8 F H 01/28/25 15:45 Pulse 89 01/28/25 20:00 Resp 16 01/28/25 20:00 BP 102/61 01/28/25 18:00 Pulse Ox 98 01/28/25 20:00 O2 Del Method Mechanical Ventilation 01/28/25 20:00 O2 Flow Rate 50 01/27/25 15:21 FiO2 40 01/28/25 20:00 01/28/25 01/28/25 01/28/25 06:59 14:59 22:59 Intake Total 144.768 / 1271.143 944.951 / 721.284 5280.625 / 2861.576 Output Total 550 / 950 550 / 550 Balance -405.232 / 321.143 944.951 / 845.868 1888.625 / 2311.576 Weight last 48 hrs Weight 154 lb 8.705 oz Weight 155 lb 6.814 oz Physical Exam 2 Narrative: per RN General: Intubated sedated. HEENT: conj clear, EOMI, PERRL Neck: supple Pulmonary: Diminished breath sounds bilaterally Cardiovascular: rrr, nl s1s2, no mrg Abdomen: soft, nt, nd, no r/g, Extremities: pulses +, no edema Skin: no rash Neurologic: grossly intact Agree with above exam Urinary Catheter Management: Plaza: Cath Placed During This Visit: yes Reason for Continuing Indwelling Catheter: Accurate Measurement of Urinary Output in Critically Ill Patients Urinary Catheter Date of Insertion: 01/27/25 Urinary Catheter Time of Insertion: 08:52 Data 01/28/25 04:08 01/28/25 04:08 Micro: Microbiology 01/27/25 18:15 Gram Stain - Final Sputum - Endotracheal Tube Aspirate Sputum Culture - Preliminary 01/23/25 13:05 Fungal Smear - Final Other Source 01/27/25 08:20 Blood Culture - Preliminary Blood NEGATIVE TO DATE 01/27/25 08:19 Blood Culture - Preliminary Blood NEGATIVE TO DATE A&P Assessment and plan 1. COPD (chronic obstructive pulmonary disease): Plan: # Septic shock-most likely due to bilateral lower extremity cellulitis as well as pneumonia. -Patient's lower extremities are most likely the source of his sepsis although pneumonia sputum cultures pending obtain 01/25/2025. Status post bronchoscopy 01/25/2025. No growth till 01/26/2025, cultures reviewed today personally. - Tracheal cultures deep send today. -Urine cultures positive for Klebsiella 01/16/2025 - Endorgan damage is renal as well as hemodynamic collapse - Continue broad-spectrum antibiotics with meropenem-7 days of antibiotics completed stop today. - Levo has been off. - Labs reviewed-01/28/2025-no growth till date on cultures other than gram- negative rods noted on sputum cultures from 01/27/2025. # Bilateral lower leg extremity cellulitis/sepsis Overall improvement noted dressing changes per Dr. Noel. Unreliable weight checks. Clinically looks less edematous overall. # Acute on chronic hypercapnic/hypoxic respiratory failure-most likely secondary to acute pulmonary edema/acute congestive heart failure and pneumonia -Vent days #7, intubated, extubated 01/26/2025, reintubated 01/27/2025. Due to mucous plugging. On high flow nasal cannula wean off as tolerated - Chest x-ray reviewed by me personally 01/27/2025-shows complete atelectasis with progression on during the day reviewed chest x-ray 01/28/2025-showing resolution of the right complete atelectasis postintubation and ventilator use. Left lower lobe infiltrate still persists. Urine output 2700 mL 01/26/2025.-4 L out Continue DuoNebs along with PulCarolyn bhatti continue -Continue steroids- prednisone daily # Right lung complete atelectasis-resolved Most likely mucous plugging. -Continue Hypersal solution nebs and Mucinex. . She is agreeable to this most likely will get trach right after. I discussed with Dr. Hodges, Dr. Jackson has been consulted for trach possibly tomorrow Shock-most likely septic -On Diamox currently x - On Levophed drip at 6 wean off as tolerated, NICOM +1 L to be given. IV albumin started 25 twice daily # Most likely obstructive sleep apnea # Diaphragmatic weakness and high risk for aspiration and mucous plugging-most likely will need tracheostomy. # Bilateral pleural effusions-most likely congestive heart failure related - Continue Diamox. pH is 7.5. # Hypernatremia Labs reviewed 01/26/2025. Sodium has normalized to 141 today 01/27/2025. # Acute encephalopathy-resolved # Hypokalemia Resolved # Acute COPD exacerbation -Continue bronchodilators, steroids changed 01/24/2025--changed over to 20 mg prednisone today 01/26/2025-wean off in 2 to 3 days # Probable bilateral pneumonia -CT scan reviewed did not show any PE but did show mucous plugging in the bilateral lower lobes suggestive of pneumonia close to the diaphragm -Antibiotics as above- -Urine growing gram-negative rods but may not be true UTI recommend changing catheter and checking another UA. All others NGTD. Staph epi in 1 out of 2 blood cultures most likely contaminant NGTD 01/25/2025 other than Klebsiella in urine -Status post bronchoscopy 01/23/2025-BAL from bilateral lower lobes collected and sent for cultures. Frothy secretions noted on clear mother congestive heart failure versus pneumonia or combination of both. Airways look very edematous and boggy-no growth till date reviewed today 01/26/2025, Merrem discontinued 01/28/2025. - Sputum cultures deep tracheal aspirate growing gram-negative rods. Vancomycin and Zosyn restarted 01/28/2025. # Bilateral lower leg cellulitis-severe -Currently covered with meropenem. Good anaerobic and beta-lactam coverage vancomycin discontinued 01/23/2025, Merrem discontinued 01/26/2025-completed 7- day course -Wrapping legs and arms in place. Appreciate Dr. Mensah' help. # History of PE -On full dose Lovenox currently to replace per home dose Eliquis. Hemoglobin stable # Mucous plugging -Continue DuoNebs and bronchodilators with steroids. Continue Mucinex to help mobilize secretions. # Obesity # Sarcoidosis -Not active at this time. Recent TERRA and ESR labs were low when last checked in clinic recently. # MICHELLE -Improved. # Acute lactic acidosis -Improved # Anemia -most likely sepsis induced. Not seeing any obvious source of bleeding currently. he is Hemoccult positive but not actively bleeding. Agree with Protonix 40 mg IV twice daily, will start anticoagulation soon. # Hypoalbuminemia - IV albumin given twice daily Maintenance meds -Maintain glucose levels and keep blood glucose 140-180. Avoid hypoglycemia. tube feeds at goal. Good bowel regimen. May discontinue lactulose by tomorrow. - Sedation-wean off propofol drip maintained on Versed and fentanyl drips alone. -DVT GI prophylaxis with protonix. Due to cellulitis SCDs cannot be placed leg wrappings ongoing Full code Goals of care discussion-discussed case with who is at bedside today on 01/20/2025,01/21. She is agreeable to the current plan of care. 01/25/2025-she is agreeable to trialing extubation this weekend and if he fails due to his apnea episodes we would reintubate him. Discussed with Dr. Hodges. Plan to treat him if he fails by early next week. 01/27/2025. Got extubated yesterday but decompensating again today due to right atelectasis. May get intubated. 01/28/2025-agreeable for trach post intubation last night. Consulted Dr. Heath for trach placement. Okay to discharge to LTAC. after tracheostomy. The high probability of a clinically significant, sudden or life threatening deterioration of the patient's [Respiratory, sepsis] system(s) required my full and direct attention, intervention and personal management. The critical care time is as shown. This time is in addition to time spent performing any reported procedures but includes the following: [x] Data and vital sign review and interpretation [x] Patient assessment, examination and intervention [x] Documentation [x] Medication orders and management Critical Care Time (min): 35 Telemedicine Consent Patient seen today via Telemedicine by agreement and consent of patient.? Telemedicine technology used during the visit includes audio and, as available, review of images.? The patient encounter is appropriate and reasonable under the circumstances given the patient?s particular presentation at this time.? The patient has been advised of the potential risks and limitations of this mode of treatment (including but not limited to the absence of in-person examination) and has agreed to be treated in a remote fashion in spite of them.? Any, and all, of the patient?s/patient?s family?s questions on this issue have been answered and I have made no promises or guarantees to the patient. The patient has also been advised to contact this office for worsening conditions or problems, and seek emergency medical treatment and/or call 911 if the patient deems either necessary PDMP PDMP Reviewed: Not Reviewed Attestations 2 Medical Necessity Statement*: Reintubated on mechanical ventilation. Coding Level of Care Code Critical Care >/= 30 minutes Diagnoses COPD (chronic obstructive pulmonary disease) J44.9
[2025-01-29] VITALS (107 sets, daily range): BP systolic 92–135; BP diastolic 50–112; PULSE 72–105; RESP 13–18; TEMP 36.5; O2SAT 96–100
[2025-01-29] MEDS: pantoprazole 40 mg SDV IVP ×3 (00:01→22:57)
--- NOTE | 2025-01-29 00:41 | PC.NURSE ---
Tube feeding turned off at midnight per Dr. Carpenter
[2025-01-29] MEDS: fentaNYL 1,000 MCG/100 ML BAG 7.5 MCG IV ×2 (00:46→15:44)
[2025-01-29] MEDS: albumin 25 G/100 ML BAG 60 G IV ×2 (03:35→16:27)
[2025-01-29] MEDS: norepinephrine 4 MG/250 ML BAG 7.5 MG IV (05:29)
[2025-01-29] MEDS: piperacillin-tazobactam 3.375 GM in sodium chloride 0.9% (plus) 50 ML IV ×3 (06:13→22:57)
--- NOTE | 2025-01-29 06:43 | ANES.PREANE2 ---
Pre-Anesthetic Assessment Height/Weight: Height 1.63 m Weight 73.227 kg Temp Pulse Resp BP Pulse Ox O2 Del Method O2 Flow Rate 97.7 F 86 14 105/60 97 Mechanical Ventilation 50 01/29/25 00:00 01/29/25 06:15 01/29/25 04:25 01/29/25 06:15 01/29/25 06:15 01/29/25 06:15 01/27/25 15:21 FiO2 40 01/29/25 04:25 Operation Date: 01/29/25 07:00 Proposed Procedures p Tracheostomy(Not Applicable) - Alonzo Carpenter MD Familial anesthetic complications: None Was Beta Cornel taken within 24 hours: N/A Was Clonidine taken within 24 hours: N/A Last intake: tube feeds paused before midnight Social No alcohol and No tobacco Exam regular rate & rhythm Airway Comments: Comments: intuabted and sedated on pressors Pulmonary Chronic Obstructive Pulmonary Disease respiratory failure mucus plugging sarcoidosis CV/HEM Coronary Artery Disease (stents), Congestive Heart Failure and Hypertension hx pE Metabolic Diabetes Mellitus Anesthetic Plan ASA status: 4 Anesthesia: General Risk of > 500 ml blood loss (7ml/kg in children): No Medications/Allergies Home Medications ?Medication ?Instructions ?Recorded ?Confirmed ?Last Taken ?Type simvastatin 40 mg tablet 40 mg PO QPM #30 tabs 05/08/24 01/16/25 01/15/25 Rx nitroglycerin 0.4 mg sublingual 0.4 mg sublingual Q5M PRN chest 05/16/24 01/16/25 Unknown Rx tablet pain #30 tabs empagliflozin 10 mg tablet 10 mg PO DAILY #30 tabs 08/20/24 01/16/25 01/16/25 Rx (Jardiance) metoprolol succinate 25 mg 12.5 mg (1/2 x 25 mg) PO BID #60 08/20/24 01/16/25 01/16/25 Rx tablet,extended release 24 hr tabs aspirin 81 mg tablet 81 mg PO DAILY 10/01/24 01/16/25 01/16/25 History brimonidine 0.2 % eye drops 1 drp ophthalmic (eye) BID 12/04/24 01/16/25 01/16/25 History dorzolamide 2 % eye drops 1 drp ophthalmic (eye) BID 12/04/24 01/16/2525 History imiquimod 5 % topical cream packet See Rx Instructions .Route .COMPLEX 12/04/24 01/16/25 12/04/24 History albuterol sulfate 90 mcg/actuation 2 puff inhalation Q6H PRN 12/06/24 01/16/25 Unknown Rx aerosol inhaler (Ventolin HFA) breathing #8.5 grams gabapentin 100 mg capsule 100 mg PO BID #60 caps 12/10/24 01/16/25 01/16/25 Rx apixaban 5 mg tablet (Eliquis) 5 mg PO BID #60 tabs 12/14/24 01/16/25 01/16/25 Rx Nebulizer with tubing and filter #1 ea 12/17/24 01/16/25 Unknown Rx fluticasone fur. 100 mcg-umeclid 1 inh inhalation DAILY #28 ea 12/17/24 01/16/25 01/16/25 Rx 62.5 mcg-vilant 25 mcg inhalat.powder (Trelegy Ellipta) buspirone 7.5 mg tablet 7.5 mg PO TID PRN Anxiety 12/18/24 01/16/25 Unknown History albuterol sulfate 2.5 mg/3 mL 2.5 mg (3 mL) inhalation Q4H PRN 12/20/24 01/16/25 Unknown Rx (0.083 %) solution for nebulization Wheezing #30 mL glucometer testing kit #1 12/21/24 01/16/25 Unknown Rx insulin aspart U-100 100 unit/mL See Rx Instructions .Route 12/21/24 01/16/25 01/16/25 Rx (3 mL) subcutaneous pen (Novolog .COMPLEX #15 mL FlexPen U-100 Insulin aspart) insulin glargine 100 unit/mL (3 15 unit (0.15 mL) SUBCUT QPM 30 12/21/24 01/16/25 Unknown Rx mL) subcutaneous pen (Basaglar days #15 mL KwikPen U-100 Insulin) furosemide 40 mg tablet 40 mg PO QAM PRN edema/heart 01/16/25 01/16/25 01/16/25 History prednisone 20 mg tablet 20 mg PO DAILY 01/16/25 01/16/25 Unknown History sulfamethoxazole 800 1 tab PO .MON, WED, FRI 01/16/25 01/16/25 01/16/25 History mg-trimethoprim 160 mg tablet losartan 50 mg tablet 50 mg PO DAILY blood pressure #30 01/25/25 Unknown Rx tabs Allergies Allergy/AdvReac Type Severity Reaction Status Date / Time cat dander Allergy Mild ADR-Swelling Verified 01/16/25 14:14 of the Eye ibuprofen Allergy Unknown Unknown Verified 01/16/25 14:14 menthol Allergy Unknown Verified 01/16/25 14:14 ketorolac (From Toradol) AdvReac renal Verified 01/16/25 14:14 failure Current Medications Generic Name Dose Route Start Last Admin Trade Name Freq PRN Reason Stop Dose Admin Acetaminophen 650 mg 01/16/25 18:42 01/18/25 22:43 Acetaminophen 325 Mg Tablet PO 650 mg Q6H PRN Administration Mild/Mod Pain Or Temp >/= 101 Acetazolamide 250 mg 01/28/25 05:00 01/29/25 05:41 Acetazolamide 250 Mg Tablet PO 02/02/25 04:59 250 mg DAILY GENA Administration Albuterol/Ipratropium 3 ml 01/20/25 12:00 01/29/25 04:27 Ipratropium-Albuterol 3 Ml Neb INHALATION 3 ml Q4H.RESPIRATORY GENA Administration Aspirin 81 mg 01/28/25 06:15 01/28/25 06:37 Aspirin 81 Mg Chew Tablet PO 81 mg On Hold: 01/28/25 15:35 DAILY GENA Administration Budesonide 0.5 mg 01/16/25 20:00 01/28/25 20:00 Budesonide 0.5 Mg/2 Ml Neb INHALATION 0.5 mg BID.RESPIRATORY GENA Administration Chlorhexidine Gluconate 1 applic 01/19/25 23:03 01/24/25 04:27 Chlorhexidine Gluconate 4% Btl 118 Ml TOPICAL 1 applic DAILY PRN Administration Bed Bath Diltiazem HCl 10 mg 01/24/25 17:45 01/29/25 03:20 Diltiazem 5 Mg/Ml Sdv 5 Ml IVP Not Given Q4H GENA Docusate Sodium 100 mg 01/16/25 18:42 01/28/25 17:02 Docusate Sodium 100 Mg Capsule PO 100 mg BID GENA Administration Gabapentin 100 mg 01/16/25 18:42 01/28/25 17:03 Gabapentin 100 Mg Capsule PO 100 mg BID GENA Administration Guaifenesin 600 mg 01/27/25 17:00 01/29/25 05:41 Guaifenesin 600 Mg Tablet PO 600 mg BID GENA Administration Norepinephrine Bitartrate 4 mg in 250 mls @ 0 mls/hr 01/27/25 08:15 01/29/25 05:29 Levophed IV 2 mcg/min .Q0M GENA 7.5 mls/hr Protocol Administration Per Protocol Fentanyl 1,000 mcg in 100 mls @ 0 mls/hr 01/28/25 02:15 01/29/25 00:46 Sublimaze IV 75 mcg/hr .Q0M GENA 7.5 mls/hr Protocol Administration Per Protocol Midazolam HCl 100 mg in 100 mls @ 0 mls/hr 01/28/25 02:15 01/28/25 19:00 Versed IV 3 mg/hr .Q0M GENA 3 mls/hr Protocol Titration Per Protocol Piperacillin Sod/Tazobactam 50 mls @ 12.5 mls/hr 01/28/25 12:00 01/29/25 06:13 Sod 3.375 gm/ Sodium Chloride IV 12.5 mls/hr Q8H GENA Administration Vancomycin HCl 1,000 mg/ 250 mls @ 250 mls/hr 01/28/25 20:00 01/29/25 06:01 Sodium Chloride IV Infused Q8H GENA Infusion Albumin Human 25 g in 100 mls @ 60 mls/hr 01/28/25 15:45 01/29/25 03:35 Albumin IV 60 mls/hr Q12H GENA Administration Insulin Glargine 15 unit 01/26/25 18:00 01/26/25 17:39 Insulin Glargine 100 Units/1 Ml SUBCUT 15 unit On Hold: 01/26/25 20:59 BIDWM GENA Administration Insulin Human Lispro 0 unit 01/16/25 18:42 01/28/25 21:30 Insulin Lispro 100 Unit/1 Ml SUBCUT 4 unit WM&BEDTIME GENA Administration Protocol Lactulose 10 gm 01/25/25 05:00 01/28/25 06:31 Lactulose Oral Liq 20 Gm/30 Ml Udc PO 10 gm DAILY GENA Administration Protocol Levofloxacin 500 mg 01/28/25 06:00 01/29/25 05:41 Levofloxacin 500 Mg Tablet OG-TUBE 02/04/25 05:59 500 mg DAILY@0600 GENA Administration Protocol Melatonin 6 mg 01/25/25 21:00 01/28/25 21:24 Melatonin 3 Mg Tablet PO Not Given BEDTIME GENA Midazolam HCl 2 mg 01/27/25 18:56 01/27/25 19:16 Midazolam 1 Mg/Ml Inj 2 Ml IVP 2 mg ONCE PRN Administration agitation Morphine Sulfate 2 mg 01/27/25 18:09 01/28/25 00:37 Morphine 4 Mg/Ml Sdv 1 Ml IVP 2 mg Q2H PRN Administration SEVERE PAIN Pantoprazole Sodium 40 mg 01/18/25 11:33 01/29/25 00:01 Pantoprazole 40 Mg Sdv IVP 40 mg Q12H GENA Administration Polyethylene Glycol 17 gm 01/24/25 09:00 01/28/25 06:31 Polyethylene Glycol 3350 Pkt 17 Gm PO 17 gm DAILY GENA Administration Prednisone 20 mg 01/27/25 05:00 01/29/25 05:41 Prednisone 20 Mg Tablet PO 20 mg DAILY GENA Administration Sodium Chloride 4 ml 01/28/25 14:00 01/28/25 20:00 Sodium Chloride 3.5% Neb 4 Ml Neb INHALATION 4 ml TID.RESP GENA Administration Sucralfate 1 gm 01/18/25 17:00 01/28/25 21:45 Sucralfate 1 Gm/10 Ml Oral Liq Udc PO 1 gm AC&BEDTIME GENA Administration PFSH Anesthesia Medical History Urinary tract infection due to ESBL Klebsiella Enrolled in chronic care management Depression Pulmonary embolism Type 2 diabetes mellitus without complication, without long-term current use of insulin [place]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 Left ureteral calculus 02/09/2023 [facility] Bilateral lower extremity edema Non-smoker COPD (chronic obstructive pulmonary disease) Pulmonary sarcoidosis Hyperlipidemia ASHD (arteriosclerotic heart disease) 2016 stents x2 HTN (hypertension) Surgical History History of eye surgery History of back surgery H/O bilateral cataract extraction S/P PTCA (percutaneous transluminal coronary angioplasty) S/P cholecystectomy S/P skin cancer resection Family History Brother CAD (coronary artery disease) valve replaced Mother Lung disease Denies family history of Diabetes Clotting disorder Dementia Chronic kidney disease (CKD) Suicide Anesthesia complication Bleeding disorder Cancer Stroke Social History Smoking and tobacco/nicotine status: never used tobacco/nicotine Second hand smoke exposure: No Alcohol intake: never Substance/Drug Use: never Data Anesthesia 01/28/25 04:08 01/28/25 04:08 Short CBC 01/28/25 Range/Units 04:08 WBC 25.89 H (3.29-11.43) 10^3/uL Hgb 9.10 L (11.27-16.99) g/dL Hct 30.1 L (37-53) % MCV 102.7 H (82-101) fl Plt Count 221 (157-399) 10^3/cmm Neut % (Auto) 84.3 % Neut # (Auto) 21.82 H (1.8-7.7) 10^3/uL BMP 01/28/25 04:08 Sodium 139 Potassium 3.7 Chloride 98 Carbon Dioxide 26 BUN 26 H Creatinine 0.5 L Glucose 150 H Calcium 8.1 L Urine 01/27/25 Range/Units 09:05 Urine Color Dark yellow A (Yellow) Urine Appearance Turbid A (CLEAR) Urine pH 5.0 (5-7) Ur Specific [place] 1.019 (1.005-1.030) Urine Protein 2+ A (Negative) Urine Glucose (UA) Negative (Normal) Urine Ketones Trace (Negative) Urine Nitrate Negative (Negative) Urine Bilirubin 1+ H (Negative) Ur Leukocyte Esterase 2+ A (Negative) Urine RBC >100 H (0-2) /hpf Urine WBC >100 H (0-5) /hpf Microbiology 01/27/25 18:15 Gram Stain - Final Sputum - Endotracheal Tube Aspirate Sputum Culture - Preliminary 01/23/25 13:05 Fungal Smear - Final Other Source 01/27/25 08:20 Blood Culture - Preliminary Blood NEGATIVE TO DATE 01/27/25 08:19 Blood Culture - Preliminary Blood NEGATIVE TO DATE Cardiac Studies: Echocardiogram 01/18/25
--- NOTE | 2025-01-29 06:43 | W.PM.OPSUD ---
Surgery/Procedure H&P Update DATE OF PROCEDURE: January 29, 2025 DATE H&P PERFORMED: 01/28/25 CHANGES TO PREVIOUS DOCUMENTATION: None PRIMARY INDICATION FOR PROCEDURE: Respiratory failure PLANNED PROCEDURE: Operation Date: 01/29/25 07:00 Proposed Procedures p Tracheostomy(Not Applicable) - Alonzo Carpenter MD
[2025-01-29] MEDS: lidocaine-epi 1% PF 1:200,000 30 mL SDV INJECTION (07:48)
[2025-01-29] MEDS: lidocaine 2% INJ 20 mL INJECTION (07:55)
[2025-01-29] MEDS: thrombin 5,000 unit SDV 5000 UNIT XX (07:56)
--- NOTE | 2025-01-29 08:16 | P.OP_ITS ---
Operative Report Date of procedure: January 29, 2025 Pre-op diagnosis: Respiratory failure Post-op diagnosis: Same Post-op findings: Normal anterior neck exam Procedure done: Tracheotomy Implants: None Specimens removed/disposition: None Pathology: None Surgeon: Alonzo Carpenter Surgeon: Alonzo Carpenter MD Level Vial Curvature Gauger: Domingo Stewart Anesthesia: General Estimated blood loss (mL): 0 IV fluids (mL): 0 Complications: None Findings: Normal anterior neck exam Condition: stable Brief History: 65 yo wm with a h/o respiratory failure and prolonged intubation whose Hospitalist team requests tracheotomy. Procedure: The patient was identified in the intensive care unit and was taken to the operating room where he was placed on the operating table in the supine position. Anesthesia was obtained with general endotracheal anesthesia through his previously placed endotracheal tube. The skin incision was marked out above the sternal notch and was injected with local anesthesia. The patient was then prepped and draped in the usual sterile fashion. A vertical incision was made over the trachea in the anterior inferior neck. Blunt dissection proceeded down through the soft tissues of the anterior neck while retracting the soft tissues laterally as the dissection proceeded toward the trachea. The trachea was identified both visually and by palpation. The thyroid isthmus was dissected off of the trachea and was divided in the anterior midline using the harmonic scalpel. Once the trachea was fully exposed, a trach hook was placed under the cricoid cartilage and the larynx was elevated in the neck. The 2nd/3rd tracheal interspace was identified. 1 cc of 2% plain lidocaine was injected into the trachea and an incision was made between the 2nd and 3rd tracheal rings with an 11 blade. The anterior portion of the third tracheal ring was then removed with an 11 blade and an Allis clamp. At this point the indwelling endotracheal tube was withdrawn just past the created tracheotomy and a #8 cuffed tracheotomy tube was placed in the trachea through the tracheotomy. The position of the trach tube was confirmed and the tracheostomy tube was sutured in place with 0 Prolene sutures on the skin. The trach tube was also secured with a neck strap. Once this was accomplished the procedure was terminated and control of the patient was returned to anesthesia where he underwent an uneventful reversal of anesthesia and the endotracheal tube that had previously been placed was fully removed from the patient. Gelfoam soaked in thrombin was then placed around the tracheotomy tube. At this point the procedure was terminated and the patient was returned to the intensive care unit in stable condition. There were no operative or anesthetic complications
--- NOTE | 2025-01-29 08:20 | ANE.PACU2 ---
Inpatient post-anesthesia follow up: Airway intact: No Vital signs: Temperature 97.7 F Pulse Rate [Therap y Changed] 103 Pulse Rate 97 Respiratory Rate [ Therapy 22 Changed] Respiratory Rate 14 Blood Pressure 105/60 Pulse Oximetry [Th erapy 94 Changed] Pulse Oximetry 100 Oxygen Delivery Me thod Mechanical Ventila tion Oxygen Flow Rate [ Therapy 50 Changed] Oxygen Flow Rate 3 Fraction of Inspir ed Oxygen [ 30 Therapy Changed] Fraction of Inspir ed Oxygen 30 Hydration adequate: Yes Nausea and vomiting: No Pain level: 1 Mental status: Baseline
--- NOTE | 2025-01-29 08:26 | XR_ITS ---
WS: [email or web address] Exam: XR chest 1V portable [id number] Date/Time of Exam: 01/29/2025 9:22 AM Reason For Exam: s/p tracheotomy Comparison 01/28/2025. A tracheostomy tube superimposes the trachea. NG tube is been removed. Enteric tube is been removed. The heart is enlarged with pulmonary vascular congestion and bilateral pleural effusions suggesting CHF. No pneumothorax. The mediastinum is normal in contour. Bony structures are intact. A left-sided PICC line ends in the lower one third of the SVC. Surgical clips along the RIGHT axilla. XR/XR chest 1V portable [id number] IMPRESSION: 1. Tracheostomy tube superimposes the airway as noted above. 2. Cardiac enlargement with pulmonary vascular congestion and bilateral pleural effusions suggesting acute CHF.
[2025-01-29] MEDS: sodium chloride 3.5% neb 4 mL Neb INHALATION ×3 (09:20→20:17)
[2025-01-29] MEDS: ARFORMOTEROL 15 MCG/2 ML NEB INHALATION ×2 (09:20→20:18)
--- NOTE | 2025-01-29 11:33 | XR_ITS ---
WS: [email or web address] Exam: XR chest 1V portable [id number] Date/Time of Exam: 01/29/2025 11:34 AM Reason For Exam: ng placement Comparison with the earlier study performed on the same day at 9:30 a.m. An enteric tube has been placed and extends into the expected region of the gastric antrum in good position. Again noted is a tracheostomy tube in place unchanged. Cardiac enlargement with pulmonary vascular congestion suggesting CHF. LEFT PICC line again noted unchanged. XR/XR chest 1V portable [id number] IMPRESSION: 1. Enteric tube ending in the region of the gastric antrum. The chest is otherw ise unchanged since the study performed earlier on the same day.
[2025-01-29] MEDS: dilTIAZem 5 mg/mL SDV 5 mL 10 MG IVP (11:48)
[2025-01-29] MEDS: sucralfate 1 gm/10 mL Oral Liq UDC PO ×3 (11:53→21:34)
[2025-01-29] MEDS: midazolam hcl 100 MG/100 ML BAG IV (12:45)
--- NOTE | 2025-01-29 13:04 | P.PN_ITS ---
Subjective 2 Subjective: Partha Roe is a 65 year old male COPD, sarcoidosis diagnosed in 2018, biopsy-proven on 20 mg of prednisone since then attempting to wean off gets admitted to the hospital with worsening shortness of breath was placed on BiPAP and I was consulted for further management Patient was gradually weaned off of prednisone. CT scan done recently does not have any evidence of any lung nodules or evidence of sarcoidosis. He was on albuterol and Trelegy for his COPD. Outpatient labs showed normal alpha-1 antitrypsin levels, TERRA and ESR levels are normal This admission patient comes to the ER with fever weakness and low blood pressure. Patient had had leg cellulitis for the last 2 days becoming woozy and foul-smelling. He was found to be in septic shock and admitted to the hospital. Fluid bolus given. Empirically started on IV IV vancomycin and meropenem. Creatinine was found to be elevated at 1.7. Patient was also treated for COPD Exacerbation with Pulmicort twice daily and DuoNebs every 6 hours Labs were consistent with white count of 19. ABG shows a pH of 7.23, pCO2 of 41 we will start her on BiPAP and tolerating it well. CT chest showed no PE and some bibasilar infiltrates in the dependent portion of the chest possible pneumonia mucous plugging bilateral lower lobes. 01/20/2025 Patient decompensated last night and had to be urgently intubated. Became more dyspneic prior to intubation. Respiratory rate went up to 21 prior to intubation and became lethargic. Did not need pressors. Currently on tidal volume of 370 mL, respiratory rate of 14 FiO2 of 30%. On propofol and fentanyl drips for sedation. 01/21/2025 Patient is on the ventilator tolerating tidal volume of 370 mL, FiO2 of 30%. Satting 96% peripherally. On propofol at 50 and fentanyl at 75 mics. Getting free water flushes. 01/22/2025 Tolerating ventilator well. PF ratio is improved to 300s but mentation is not appropriate yet. On Versed and fentanyl drips 01/23/2025 Patient still has a lot of thick secretions via ET tube. Chest x-ray showed pulmonary vascular congestion although could be pneumonia as well. Bronchoscopy performed today. Good urine output. 01/24/2025 Very minimal ETT secretions. Still very volume overloaded. Bronchoscopy done yesterday. Secretions. Mental status still not appropriate for extubation. On Precedex 0.5. Wakes up and follows commands but very weak still. 01/25/2025 Minimal ET tube secretions. Awake following commands. Still having some apneic episodes. Off of all sedation. 01/27/2024 Had an episode of mucous plugging overnight where he had to be placed on high percent FiO2 on the ventilator briefly with aggressive suctioning. This morning he looks awake and alert following commands, good cough. Vent settings of the same on 35% FiO2 satting 100% currently. 01/27/2025 Patient has been having mucous plugging issues. Did get extubated on high flow nasal cannula currently 50 L / 30%. Chest x-ray showed complete atelectasis of the right side. He is awake and following commands. Not participating in chest vest therapy well. Complains of back pain. 01/29/2025 Patient is trach currently tolerating well. On 2 levo.. Sedated. Review of systems-cannot be obtained patient is intubated and sedated Vitals/I&O/Wt Last Vital Signs Temp 97.7 F 01/29/25 00:00 Pulse 97 01/29/25 11:36 Resp 14 01/29/25 11:44 BP 105/60 01/29/25 06:15 Pulse Ox 100 01/29/25 11:44 O2 Del Method Mechanical Ventilation 01/29/25 11:36 O2 Flow Rate 50 01/27/25 15:21 FiO2 30 01/29/25 11:44 01/28/25 01/29/25 01/29/25 22:59 06:59 14:59 Intake Total 2166.625 / 3111.576 448 / 3559.576 53.25 / 53.25 Output Total 800 / 800 450 / 1250 Balance 1366.625 / 2311.576 -2 / 2309.576 53.25 / 53.25 Weight last 48 hrs Weight 161 lb 7 oz Weight 154 lb 8.705 oz Physical Exam 2 Narrative: per RN General: sedated. HEENT: conj clear, EOMI, PERRL Neck: supple Pulmonary: Diminished breath sounds bilaterally Cardiovascular: rrr, nl s1s2, no mrg Abdomen: soft, nt, nd, no r/g, Extremities: pulses +, no edema Skin: no rash Neurologic: grossly intact Agree with above exam Urinary Catheter Management: Plaza: Cath Placed During This Visit: yes Reason for Continuing Indwelling Catheter: Accurate Measurement of Urinary Output in Critically Ill Patients Urinary Catheter Date of Insertion: 01/27/25 Urinary Catheter Time of Insertion: 08:52 Data 01/28/25 04:08 01/28/25 04:08 Micro: Microbiology 01/27/25 18:15 Gram Stain - Final Sputum - Endotracheal Tube Aspirate Sputum Culture - Preliminary Yeast species 01/28/25 13:35 Gram Stain - Final Sputum - Endotracheal Tube Aspirate Sputum Culture - Preliminary 01/27/25 09:05 Urine Culture - Preliminary Urine,Clean Catch Yeast species 01/23/25 13:05 Fungal Smear - Final Other Source 01/27/25 08:20 Blood Culture - Preliminary Blood NEGATIVE TO DATE 01/27/25 08:19 Blood Culture - Preliminary Blood NEGATIVE TO DATE A&P Assessment and plan 1. COPD (chronic obstructive pulmonary disease): Plan: # Septic shock-most likely due to bilateral lower extremity cellulitis as well as pneumonia. -Patient's lower extremities are most likely the source of his sepsis although pneumonia sputum cultures pending obtain 01/25/2025. Status post bronchoscopy 01/25/2025. No growth till 01/29/2025, cultures reviewed today personally. - S/p Trach- 01/29/25 -Urine cultures positive for Klebsiella 01/16/2025 - Endorgan damage is renal as well as hemodynamic collapse - Continue broad-spectrum antibiotics with meropenem-7 days of antibiotics completed stop today.[employer] - [id number] [facility] - - Labs reviewed-01/28/2025-no growth till date on cultures other than gram- negative rods noted on sputum cultures from 01/29/2025. # Bilateral lower leg extremity cellulitis/sepsis Overall improvement noted dressing changes per Dr. Noel. Unreliable weight checks. Clinically looks less edematous overall. # Acute on chronic hypercapnic/hypoxic respiratory failure-most likely secondary to acute pulmonary edema/acute congestive heart failure and pneumonia -Vent days #7, intubated, extubated 01/26/2025, reintubated 01/27/2025. Trached 01/29/25 - Continue to wean vent- trial flow by tomorrow onwards - Chest x-ray reviewed by me personally 01/27/2025-shows complete atelectasis with progression on during the day reviewed chest x-ray 01/28/2025-showing resolution of the right complete atelectasis postintubation and ventilator use. Left lower lobe infiltrate still persists. Urine output 2700 mL 01/26/2025.-4 L out Continue DuoNebs along with Pulmicort Brovana continue -Continue steroids- prednisone daily # Right lung complete atelectasis-resolved Most likely mucous plugging. -Continue Hypersal solution nebs and Mucinex. Shock-most likely septic - On Levophed drip at 2 wean off as tolerated, NICOM +1 L to be given. IV albumin started 25 twice daily # Most likely obstructive sleep apnea # Diaphragmatic weakness and high risk for aspiration and mucous plugging-most likely will need tracheostomy. # Bilateral pleural effusions-most likely congestive heart failure related - Continue Diamox. pH is 7.5. # Hypernatremia Labs reviewed 01/26/2025. Sodium has normalized to 139 today 01/28/2025. # Acute encephalopathy-resolved # Hypokalemia Resolved # Acute COPD exacerbation -Continue bronchodilators, steroids changed 01/24/2025--changed over to 20 mg prednisone today 01/26/2025-wean off in 2 to 3 days # Probable bilateral pneumonia -CT scan reviewed did not show any PE but did show mucous plugging in the bilateral lower lobes suggestive of pneumonia close to the diaphragm -Antibiotics as above- -Urine growing gram-negative rods but may not be true UTI recommend changing catheter and checking another UA. All others NGTD. Staph epi in 1 out of 2 blood cultures most likely contaminant NGTD 01/25/2025 other than Klebsiella in urine -Status post bronchoscopy 01/23/2025-BAL from bilateral lower lobes collected and sent for cultures. Frothy secretions noted on clear mother congestive heart failure versus pneumonia or combination of both. Airways look very edematous and boggy-no growth till date reviewed today 01/26/2025, Merrem discontinued 01/28/2025. - Sputum cultures deep tracheal aspirate growing gram-negative rods. Vancomycin and Zosyn restarted 01/28/2025. # Bilateral lower leg cellulitis-severe -Currently covered with meropenem. Good anaerobic and beta-lactam coverage vancomycin discontinued 01/23/2025, Merrem discontinued 01/26/2025-completed 7- day course -Wrapping legs and arms in place. Appreciate Dr. Mensah' help. # History of PE -On full dose Lovenox currently to replace per home dose Eliquis. Hemoglobin stable # Mucous plugging -Continue DuoNebs and bronchodilators with steroids. Continue Mucinex to help mobilize secretions. # Obesity # Sarcoidosis -Not active at this time. Recent TERRA and ESR labs were low when last checked in clinic recently. # MICHELLE -Improved. # Acute lactic acidosis -Improved # Anemia -most likely sepsis induced. Not seeing any obvious source of bleeding currently. he is Hemoccult positive but not actively bleeding. Agree with Protonix 40 mg IV twice daily, will start anticoagulation soon. # Hypoalbuminemia - IV albumin given twice daily Maintenance meds -Maintain glucose levels and keep blood glucose 140-180. Avoid hypoglycemia. tube feeds at goal. Good bowel regimen. May discontinue lactulose by today - Sedation-wean off propofol drip maintained on Versed and fentanyl drips alone. -DVT GI prophylaxis with protonix. Due to cellulitis SCDs cannot be placed leg wrappings ongoing Full code Goals of care discussion-discussed case with who is at bedside today on 01/20/2025,01/21. She is agreeable to the current plan of care. 01/25/2025-she is agreeable to trialing extubation this weekend and if he fails due to his apnea episodes we would reintubate him. Discussed with Dr. Hodges. Plan to treat him if he fails by early next week. 01/27/2025. Got extubated yesterday but decompensating again today due to right atelectasis. May get intubated. 01/28/2025-agreeable for trach post intubation last night. Consulted Dr. Heath for trach placement. Okay to discharge to LTAC from pulmonary stand point. The high probability of a clinically significant, sudden or life threatening deterioration of the patient's [Respiratory, sepsis] system(s) required my full and direct attention, intervention and personal management. The critical care time is as shown. This time is in addition to time spent performing any reported procedures but includes the following: [x] Data and vital sign review and interpretation [x] Patient assessment, examination and intervention [x] Documentation [x] Medication orders and management Critical Care Time (min): 35 Telemedicine Consent Patient seen today via Telemedicine by agreement and consent of patient.? Telemedicine technology used during the visit includes audio and, as available, review of images.? The patient encounter is appropriate and reasonable under the circumstances given the patient?s particular presentation at this time.? The patient has been advised of the potential risks and limitations of this mode of treatment (including but not limited to the absence of in-person examination) and has agreed to be treated in a remote fashion in spite of them.? Any, and all, of the patient?s/patient?s family?s questions on this issue have been answered and I have made no promises or guarantees to the patient. The patient has also been advised to contact this office for worsening conditions or problems, and seek emergency medical treatment and/or call 911 if the patient deems either necessary PDMP PDMP Reviewed: Not Reviewed Attestations 2 Medical Necessity Statement*: trached and awaiting LTAC placement Coding Level of Care Code Critical Care >/= 30 minutes Diagnoses COPD (chronic obstructive pulmonary disease) J44.9
--- NOTE | 2025-01-29 20:31 | PM.PN ---
Subjective Subjective: 65-year-old male underwent tracheostomy by Dr. Carpenter this morning and is sedated on fentanyl and Versed drip at this time. He is minimally responsive does not squeeze my hand reliably. is present at bedside. Vitals/I&O/Wt Last Vital Signs Temp 97.7 F 01/29/25 00:00 Pulse 89 01/29/25 20:15 Resp 16 01/29/25 20:15 BP 104/59 01/29/25 18:30 Pulse Ox 100 01/29/25 20:15 O2 Del Method Mechanical Ventilation 01/29/25 20:15 O2 Flow Rate 50 01/27/25 15:21 FiO2 30 01/29/25 20:15 01/29/25 01/29/25 01/29/25 06:59 14:59 22:59 Intake Total 548 / 3659.576 252.125 / 252.125 468.041 / 720.166 Output Total 450 / 1250 825 / 825 Balance 98 / 2409.576 252.125 / 252.125 -356.959 / -104.834 Weight last 48 hrs Weight 73.227 kg Weight 70.1 kg Physical Exam Narrative: General Well-developed chronically ill-appearing male ventilated on trach and sedated. Patient is responsive but not purposeful at this time CV regular rate and rhythm Lungs diminished in bases Abdomen mildly distended no tenderness Trace to 2+ general edema Right arm 2+ edema left arm 1+ edema Psych: OTHER: Urinary Catheter Management: Plaza: Cath Placed During This Visit: yes Reason for Continuing Indwelling Catheter: Accurate Measurement of Urinary Output in Critically Ill Patients Urinary Catheter Date of Insertion: 01/27/25 Urinary Catheter Time of Insertion: 08:52 Data 01/28/25 04:08 01/28/25 04:08 Micro: Microbiology 01/27/25 18:15 Gram Stain - Final Sputum - Endotracheal Tube Aspirate Sputum Culture - Preliminary Yeast species 01/28/25 13:35 Gram Stain - Final Sputum - Endotracheal Tube Aspirate Sputum Culture - Preliminary 01/27/25 09:05 Urine Culture - Preliminary Urine,Clean Catch Yeast species A&P Assessment and plan 1. Atelectasis, bilateral: Bilateral mucous plugging and atelectasis. Patient now with tracheostomy. Will decrease his sedation so that he can breathe. Continue vancomycin and Zosyn and Levaquin 2. Urinary tract infection due to ESBL Klebsiella: Start Levaquin 500 mg daily which was proven to be effective based on last sensitivity. Plaza has been changed 3. Metabolic alkalosis with respiratory acidosis: Improved decrease acetazolamide to 250 mg daily for another 4 days 4. Pulmonary edema: Blood pressures currently cheetah fluid responsive patient is severely malnourished. Diuretics and albumin 5. Chronic diastolic heart failure: Patient is cheetah fluid responsive and currently diuretics held for now except for the acetazolamide. Patient has been started on albumin. Patient currently hypotensive. Will increase his steroids first stress dose steroids overnight 6. Centrilobular emphysema: Carries a diagnosis of sarcoidosis. Please see Dr. Freed's note regarding this diagnosis 7. History of pulmonary embolism: Patient takes Eliquis 5 mg twice daily chronically Currently on Lovenox full dose. I switched to Lovenox for ease of discontinuance in case patient needs a trach early next week Held currently due to bright red blood per rectum 8. Type 2 diabetes mellitus without complication, without long-term current use of insulin: Blood sugars running 220 increase Lantus to 20 units twice a day. Increase tube feeds to 50 an hour as tolerated. PDMP PDMP Reviewed: Not Reviewed Attestations Medical Necessity Statement*: Patient remains in ICU on sedation and will require greater than 2 midnights Coding Level of Care Code 45032 Diagnoses Atelectasis, bilateral J98.11 Urinary tract infection due to ESBL Klebsiella N39.0; B96.89 Metabolic alkalosis with respiratory acidosis E87.4 Pulmonary edema J81.1 Chronic diastolic heart failure I50.32 Centrilobular emphysema J43.2 COPD type: emphysema Emphysema type: centrilobular History of pulmonary embolism Z86.711 Type 2 diabetes mellitus without complication, without long-term current use of insulin E11.9 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
[2025-01-29] MEDS: hydrocortisone 100 mg/2 mL SDV 50 MG IVP (21:34)
[2025-01-29] MEDS: morphine 4 mg/mL SDV 1 mL 2 MG IVP (21:34)
[2025-01-30] VITALS (81 sets, daily range): BP systolic 104–151; BP diastolic 57–86; PULSE 88–122; RESP 14–21; TEMP 36.5–36.7; O2SAT 89–100
[2025-01-30] MEDS: dilTIAZem 5 mg/mL SDV 5 mL 10 MG IVP ×4 (03:53→14:47)
[2025-01-30] MEDS: albumin 25 G/100 ML BAG 60 G IV ×2 (04:05→14:46)
[2025-01-30 04:34] LABS: Hematocrit 23.8 % (37-53); Hemoglobin 6.90 g/dL (11.27-16.99); Mean Corpuscular HGB Conc 29.0 g/dL (30-55); Mean Corpuscular Hemoglobin 30.1 pg (27-33); Mean Corpuscular Volume 103.9 fl (82-101); Nucleated Red Blood Cells % 0 %; Platelet Count 186 10^3/cmm (157-399); Red Blood Count 2.29 10^6/uL (3.85-5.65); White Blood Count 17.17 10^3/uL (3.29-11.43)
[2025-01-30 04:56] LABS: Alanine Aminotransferase 25 U/L (0-41); Albumin Level 3.5 g/dL (3.5-5.2); Alkaline Phosphatase 116 U/L (40-130); Anion Gap 16.0 (5-19); Aspartate Amino Transferase 18 U/L (0-40); Blood Urea Nitrogen 21 mg/dL (8-23); Calcium 8.8 mg/dL (8.5-10.5); Carbon Dioxide 24 mmol/L (22-29); Chloride 108 mmol/L (98-107); Creatinine Clr Calc Pharmacy 173.2789; Globulin 1.9 g/dL (1.3-4.6); Glucose 201 mg/dL (65-115); Osmolality Calculated 307 mOsm/kg (285-295); Potassium 4.0 mmol/L (3.5-5.1); Sodium 144 mmol/L (136-145); Total Protein 5.4 g/dL (6.6-8.7)
[2025-01-30 04:57] LABS: Magnesium 2.3 mg/dL (1.7-2.3)
--- NOTE | 2025-01-30 05:09 | P.PN_ITS ---
Subjective 2 Subjective: 65 yo wm who is POD #1 s/p tracheotomy d oing well by nursing report. Medications: Reviewed: Yes Vitals/I&O/Wt Last Vital Signs Temp 98.1 F 01/30/25 03:00 Pulse 99 01/30/25 04:00 Resp 15 01/30/25 04:00 BP 130/69 01/30/25 03:00 Pulse Ox 100 01/30/25 04:00 O2 Del Method Mechanical Ventilation 01/30/25 04:00 O2 Flow Rate 50 01/27/25 15:21 FiO2 30 01/30/25 04:00 01/29/25 01/29/25 01/30/25 14:59 22:59 06:59 Intake Total 252.125 / 252.125 468.041 / 720.166 50 / 770.166 Output Total 825 / 825 500 / 1325 Balance 252.125 / 252.125 -356.959 / -104.834 -450 / -554.834 Weight last 48 hrs Weight 73.227 kg Weight 70.1 kg Physical Exam 2 Const: COMMON NORMALS: no acute distress GENERAL APPEARANCE: patient mechanically ventilated HENMT: COMMON NORMALS: normocephalic, atraumatic and Normal external nose present HEAD & SCALP: normocephalic and atraumatic FACE & SINUS: normal facial exam NOSE: Normal external nose present Neck/C-Spine: GENERAL: Yes trachea midline and Yes tracheostomy present (The trach site is without erythema or discharge) Urinary Catheter Management: Plaza: Cath Placed During This Visit: yes Reason for Continuing Indwelling Catheter: Accurate Measurement of Urinary Output in Critically Ill Patients Urinary Catheter Date of Insertion: 01/27/25 Urinary Catheter Time of Insertion: 08:52 Data 01/30/25 04:12 01/30/25 04:12 Micro: Microbiology 01/27/25 18:15 Gram Stain - Final Sputum - Endotracheal Tube Aspirate Sputum Culture - Preliminary Yeast species 01/28/25 13:35 Gram Stain - Final Sputum - Endotracheal Tube Aspirate Sputum Culture - Preliminary 01/27/25 09:05 Urine Culture - Preliminary Urine,Clean Catch Yeast species CXR: My impression: Trach tube in proper position in the trachea; o/w as per radiology A&P Assessment and plan 1. Respiratory failure: Impression: POD #1 s/p tracheotomy doing well from this standpoint Plan: - Continued trach care - Anticipate first trach change on POD 5-7 - Notify Dr. Carpenter for any problems with the trach tube PDMP PDMP Reviewed: Not Reviewed Attestations 2 Medical Necessity Statement*: I was consulted to assist in airway management. Coding Level of Care Code Acute Code for Chg Fwd Diagnoses Respiratory failure J96.90
[2025-01-30] MEDS: hydrocortisone 100 mg/2 mL SDV 50 MG IVP (06:19)
[2025-01-30] MEDS: polyethylene glycol 3350 Pkt 17 gm PO (06:29)
[2025-01-30] MEDS: sucralfate 1 gm/10 mL Oral Liq UDC PO ×2 (06:31→11:10)
[2025-01-30] MEDS: piperacillin-tazobactam 3.375 GM in sodium chloride 0.9% (plus) 50 ML IV ×2 (06:38→14:46)
--- NOTE | 2025-01-30 08:00 | XRR_ITS ---
PROCEDURE INFORMATION: Exam: XR Chest Exam date and time: 01/30/2025 7:04 AM Age: 65 years old Clinical indication: Condition or disease; Lung condition and disease; Pneumonia; Additional info: Follow-up pneumonia and atelectasis TECHNIQUE: Imaging protocol: Radiologic exam of the chest. Views: 1 view. COMPARISON: CR XR chest 1V portable [id number] 01/29/2025 11:34 AM FINDINGS: Lungs: Increasing opacity bilaterally interval unnamed combination of effusion/atelectasis and infiltrates. Pleural spaces: Unremarkable. No pleural effusion. No pneumothorax. Heart/Mediastinum: Unremarkable. No cardiomegaly. Vasculature: Stable vascular engorgement. Bones/joints: Unremarkable. Other findings: Stable life support lines. XR/XR chest 1V portable [id number] IMPRESSION: Increasing opacity bilaterally, now moderately severe. This appears to be predominantly due to CHF and superimposed pneumonia may be present.
[2025-01-30] MEDS: ARFORMOTEROL 15 MCG/2 ML NEB INHALATION (08:27)
[2025-01-30] MEDS: sodium chloride 3.5% neb 4 mL Neb INHALATION ×2 (08:27→15:25)
[2025-01-30] MEDS: potassium phosphate (mMol PO4) 30 MMOL in sodium chloride 0.9% (100 ml) 100 ML 25 MMOL IV (09:39)
[2025-01-30] MEDS: FUROsemide 10 mg/mL SDV 2mL 20 MG IVP (09:40)
[2025-01-30] MEDS: potassium chloride oral liq 20 mEq/15 mL UDC 40 MEQ PO (09:40)
[2025-01-30] MEDS: pantoprazole 40 mg SDV IVP (11:10)
[2025-01-30] MEDS: morphine 4 mg/mL SDV 1 mL 2 MG IVP ×2 (11:12→15:29)
[2025-01-30 12:16] LABS: Hematocrit 22.7 % (37-53); Hemoglobin 6.70 g/dL (11.27-16.99)
[2025-01-30 12:39] LABS: Blastomyces Antigen Interpret NEGATIVE; Blastomyces Antigen Result None Detected
--- NOTE | 2025-01-30 14:03 | P.DS_ITS ---
Discharge Providers Date of Admission: 01/16/25 18:26 Date of Discharge: January 30, 2025 Attending Provider at Admission: Tonny Talamantes MD Attending Provider at Discharge: Devendra Hodges MD Consults: Cristiano Freed MD pulmonology Alonzo Carpenter MD ENT Primary Care Provider: Natalia Alvarado NP Diagnoses at Discharge Discharge Diagnosis 1. Respiratory failure: Details from hospital stay: Recurrent respiratory failure with pneumonia and mucous plugging. This is now growing only yeast on last mucus plug sample at the time of intubation. This also was present at the time of BAL. I am going to talk with Dr. Freed further I think we should treat him for yeast. Patient will be transported to [facility] long-term acute care with ICU. He has a trach and can undergo weaning exercises. He is severely malnourished and will continue on tube feeds. I think will be a while before he can eat enough calories to become vigorous 2. Urinary tract infection due to ESBL Klebsiella: Details from hospital stay: This was treated with Levaquin and is no longer growing but now he is going yeast urinary tract infection 3. Atelectasis, bilateral: Details from hospital stay: Sputum is growing yeast 4. Metabolic alkalosis with respiratory acidosis: Details from hospital stay: This had been severe with ABG on 01/26/2025 showing pH 7.5 pCO2 50.2 and ABG bicarb 39.5. He also had hypernatremia to a sodium of 157 on 01/24/2025. He did not have an ABG on 01/24/2025. He had serum bicarb of 34 on 01/25/2025. Patient has been treated with free water and acetazolamide 500 mg initially decreasing to 250 mg with an endpoint in 2 days and serum bicarb now 24 sodium 144 5. Pulmonary edema: Details from hospital stay: Continue with diuresis and tube feeds for nutrition as well as albumin. 6. History of pulmonary embolism: Details from hospital stay: This was last present documented April 2024. Since then and December and January 2025 CTAs were negative for PE. Due to recurrent anemia I have determined that he should not have ongoing full anticoagulation but just DVT prophylaxis This admission patient has required 2 units of blood 1 few days ago and 1 today for hematocrit running around 22.7 today 7. Type 2 diabetes mellitus without complication, without long-term current use of insulin: Details from hospital stay: [id number] glucose running 126 to tonight for the last few days but most of them around 180-200. Current insulin glargine 20 units twice a day. 8. Yeast UTI: Details from hospital stay: Start fluconazole I spoke with the stock patcher and she is agreeable to a 5 to 10-day course of fluconazole for yeast colonization start fluconazole 200 mg daily 9. Infection due to yeast: Details from hospital stay: I think this is affecting both the lung and the urine 10. Basal cell carcinoma: Details from hospital stay: Left neck 11. Adrenal insufficiency: Details from hospital stay: He patient has been on prednisone for better part of a year and he has required Levophed intermittently. When we gave him high-dose steroids he became hyponatremic but when he receives low-dose prednisone i.e. 10 or 20 mg he requires pressors and is lethargic. Yesterday blood pressure 90 I gave him stress dose hydrocortisone 50 mg twice a day and his blood pressure came up to 130. I think he needs to be on stress dose steroids slowly wean down. Other Information Additional DC diagnoses/information: I called the accepting physician Dr. Walsh and checked out with him on the phone and also gave him my phone number for any further question. I also updated the patient's Priscilla and patient's daughter Rosa Elena in the hospital who are agreeable to the transfer. Reason for Visit Reason for Visit: both legs swelling and painfull Brief History: Partha Roe is a 64 year old male with a history of chronic obstructive pulmonary disease (COPD), asthma, prior pulmonary embolism on apixaban, type 2 diabetes mellitus, pulmonary sarcoidosis, hyperlipidemia, hypertension, and coronary artery disease with two stents comes to the ER today with his spouse because of bilateral lower limb swelling fever, weakness with low blood pressures. Patient had gone to urgent care today and was referred to the ER. As per the spouse and patient at bedside he has had cellulitis and swelling of his legs for last few months but for last 2 days the legs have become more oozy and foul-smelling. He has had low blood pressures down to 70 systolics at home for last 3 days. In the ER patient was found to have a hypotension with systolic blood pressure down to 71 mmHg for which she was started on sepsis bolus. Examination patient's blood pressure was 90 systolic and has received 600 off his septic bolus complaining of back pain. Patient states he has had back pain for a long time and is to undergo surgery with orthopedic team as an outpatient by the end of this month. He takes Tylenol for pain at home. Hospital Course Hospital Course 64-year-old male with chronic lung disease including sarcoidosis and COPD but was never a smoker, has a history of coronary artery disease with stents. His health declined starting February 2024 after the of his son for whom he was one of the primary caregivers. After that he had stress cardiomyopathy later in the same February of 2023 followed by pseudomonal pneumonia and finally pulmonary embolism April 2024 he in the right lower lobe segmental pulmonary artery without right heart strain. Venous duplex April 2024 negative for DVT patient has had follow-up CTA negative for clot 12/04/24 and 01/17/25. Patient has had bibasilar infiltrates, peribronchial thickening in bilateral lower lobes with mucous plugging. He also has severe coronary calcifications Patient had anasarca and bilateral lower extremity cellulitis and venous stasis with ulcers. Those were placed in Unna boots and he was diuresed. Patient had bilateral pneumonia and underwent bronchioloalveolar lavage with Dr. Freed stock patcher on 01/23/2025 bilateral mainstem bronchus obstructed with thick mucous plugs. Microbiology showed Staphylococcus hemolyticus and Purinma albicans. Urine has grown yeast on 01/27/2025 as did the endotracheal aspirate. Notably the patient was extubated 01/26/2025 but required reintubation on 01/27/2025. He has had intermittent plugging of his catheter and now the ET tube aspirate which had no bacteria grew yeast as did the urine. White count remains elevated despite vancomycin Zosyn and Levaquin. Notably patient grew Klebsiella oxytoca on 01/16/2025 which should have been well treated with the Levaquin but white count persisted. Additionally the urine on 01/27/2025 had greater than 100 white cells and greater than 100 red cells 2+ yeast and 3+ but grew only mixed urogenital erickson and yeast Lastly patient has what looks like a basal cell carcinoma of the left neck Physical Exam Narrative: General well-developed chronically ill-appearing male on ventilator via trach comfortable minimally sedate Patient is alert and oriented quite edematous 2+ bilateral lower extremities 3+ right hand. CV regular tachycardic rhythm Lungs diminished breath sounds at the bases no overt crackles Abdomen diminished positive bowel tones soft nontender but moderately distended Calves 2+ edema Neuro patient follows all commands can squeeze my hands to command Psych: OTHER: Urinary Catheter Management: Plaza: Cath Placed During This Visit: yes Reason for Continuing Indwelling Catheter: Acute Urinary Retention or Obstruction Urinary Catheter Date of Insertion: 01/27/25 Urinary Catheter Time of Insertion: 08:52 Discharge Data Studies Completed and Pending Completed Studies During Hospitalization Category Date Time Status CT abdomen pelvis wo con [id number] Stat Cat Scan 01/16/25 17:[address] chest wo con [id number] Stat Cat Scan 01/27/25 16:[address] head wo con* [id number] Routine Cat Scan 01/22/25 12:[address] lower leg LT w con [id number] Stat Cat Scan 01/16/25 16:[address] lower leg RT w con [id number] Stat Cat Scan 01/16/25 16:48 Completed CTA chest [CT angio chest PE protcl [id number]] Stat Cat Scan 01/17/25 16:39 Completed CXRP [XR chest 1V portable [id number]] Routine Exams 01/18/25 11:21 Completed CXRP [XR chest 1V portable [id number]] Routine Exams 01/21/25 08:23 Completed CXRP [XR chest 1V portable [id number]] Routine Exams 01/24/25 08:55 Completed CXRP [XR chest 1V portable [id number]] Stat Exams 01/19/25 18:21 Completed CXRP [XR chest 1V portable [id number]] Stat Exams 01/26/25 05:42 Completed CXRP [XR chest 1V portable [id number]] Stat Exams 01/29/25 11:33 Completed XR chest 1V portable [id number] Routine Exams 01/19/25 23:20 Completed XR chest 1V portable [id number] Routine Exams 01/22/25 08:52 Completed XR chest 1V portable 30924 Routine Exams 01/27/25 18:26 Completed XR chest 1V portable 33541 Routine Exams 01/28/25 08:00 Completed XR chest 1V portable [id number] Routine Exams 01/30/25 08:00 Completed XR chest 1V portable 13028 Stat Exams 01/16/25 14:58 Completed XR chest 1V portable [id number] Stat Exams 01/27/25 03:30 Completed XR chest 1V portable [id number] Stat Exams 01/27/25 08:27 Completed XR chest 1V portable [id number] Stat Exams 01/27/25 14:13 Completed XR chest 1V portable 16463 Urgent Exams 01/29/25 08:26 Completed Fungal Culture not HR/SK/BL Routine Lab 01/23/25 13:05 Completed Viral Respiratory,Rapid Cultur Routine Lab 01/23/25 13:05 Completed CV. echo complete* [id number] Routine Ultrasound 01/18/25 16:40 Completed Pending at discharge Category Date Time Status Blood Culture Stat Lab 01/27/25 08:20 Results CBC Auto Diff [Complete Blood Count w/Auto] AM LABS Lab 01/31/25 04:00 Ordered CBC Auto Diff [Complete Blood Count w/Auto] AM LABS Lab 02/01/25 04:00 Ordered CMP [Comprehensive Metabolic Panel] AM LABS Lab 01/31/25 04:00 Ordered CMP [Comprehensive Metabolic Panel] AM LABS Lab 02/01/25 04:00 Ordered Histoplasma Quantitative AG Routine Lab 01/23/25 13:05 Received Leukocyte Reduced RBC Routine Lab 01/30/25 13:27 Ordered Magnesium AM LABS Lab 01/31/25 04:00 Ordered Magnesium AM LABS Lab 02/01/25 04:00 Ordered Mycobacteria, Culture w/Fluor Routine Lab 01/23/25 13:05 Results Phosphorus AM LABS Lab 01/31/25 04:00 Ordered Phosphorus AM LABS Lab 02/01/25 04:00 Ordered Sputum Culture and Gram Stain Stat Lab 01/27/25 18:15 Results Type and Screen Routine Lab 01/30/25 13:27 Ordered Urine Culture Stat Lab 01/27/25 09:05 Results Radiology Impressions Lower Extremity CT 01/16/25 16:48 IMPRESSION: 1. Nonspecific general diffuse soft tissue edema. 2. Negative for focal abscess. 3. Negative for osteomyelitis. Abdomen/Pelvis CT 01/16/25 17:57 IMPRESSION: 1. Negative for acute abdominopelvic pathology. 2. Negative for renal obstruction. Chest CTA 01/17/25 16:39 IMPRESSION: 1. No pulmonary embolism. 2. Bibasilar infiltrates at the dependent portion of the chest. Pneumonic process can not be excluded. Imaging follow-up until resolution is advised. 3. Peribronchial thickening involving bilateral lower lobes and lingular segment. Bronchiolitis can not be excluded. Mucous plugging in bilateral lower lobes. 4. Coronary calcifications. 5. Mild calcified atherosclerotic changes are seen in the thoracic aorta. 6. Hepatic steatosis. Head CT 01/22/25 12:55 IMPRESSION: 1. No evidence of intracranial hemorrhage or mass effect. 2. Moderate small vessel changes. Moderate parenchymal volume loss. 3. 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 4. Vascular calcification. Chest CT 01/27/25 16:30 IMPRESSION: 1. Appropriately positioned left-sided PICC line. 2. Old granulomatous disease. 3. Endobronchial obstruction in the right mainstem bronchus where low-attenuation material is identified, greater than that of pleural fluid, probably reflecting mucous plugging. This has resulted in nearly complete atelectasis of the right lung. Rightward shift of mediastinal structures is present as a result. 4. Old granulomatous disease affecting the right lung, mediastinal lymph nodes and spleen. 5. Severe osteoporosis with multiple chronic and subacute thoracic compression fractures, and acute compression injury at T8. No burst fractures are noted. ADDENDUM: 01/27/25 1738 THIS REPORT CONTAINS FINDINGS THAT MAY BE CRITICAL TO PATIENT CARE. The findings were verbally communicated via telephone conference at 5:36 PM CDT on 01/27/[address] Hodges. The findings were acknowledged and understood. Chest X-Ray 01/30/25 08:00 IMPRESSION: Increasing opacity bilaterally, now moderately severe. This appears to be predominantly due to CHF and superimposed pneumonia may be present. Laboratory Results WBC 17.17 10^3/uL (3.29-11.43) H 01/30/25 04:12 Corrected WBC Cancelled 01/19/25 07:46 RBC 2.29 10^6/uL (3.85-5.65) L 01/30/25 04:12 Hgb 6.70 g/dL (11.27-16.99) L 01/30/25 12:08 Hct 22.7 % (37-53) L 01/30/25 12:08 MCV 103.9 fl (82-101) H 01/30/25 04:12 MCH 30.1 pg (27-33) 01/30/25 04:12 MCHC 29.0 g/dL (30-55) L 01/30/25 04:12 RDW 15.9 % (12.1-15.1) H 01/30/25 04:12 Plt Count 186 10^3/cmm (157-399) 01/30/25 04:12 MPV 12.4 fL (7.4-10.4) H 01/30/25 04:12 Gran % Cancelled 01/19/25 07:46 Neut % (Auto) 91.2 % 01/30/25 04:12 Lymph % (Auto) 1.5 % 01/30/25 04:12 [place] % (Auto) 5.4 % 01/30/25 04:12 Eos % (Auto) 0.1 % 01/30/25 04:12 Baso % (Auto) 0.1 % 01/30/25 04:12 Neut # (Auto) 15.67 10^3/uL (1.8-7.7) H 01/30/25 04:12 Lymph # (Auto) 0.3 10^3/uL (0.8-4.8) L 01/30/25 04:12 [place] # (Auto) 0.9 10^3/uL (0.2-0.9) 01/30/25 04:12 Eos # (Auto) 0.0 10^3/uL (0.0-0.8) 01/30/25 04:12 Baso # (Auto) 0.0 10^3/uL (0.0-0.1) 01/30/25 04:12 Absolute Gran (auto) Cancelled 01/19/25 07:46 Nucleated RBC % (auto) 0 % 01/30/25 04:12 Total Counted 100 (0-100) 01/16/25 14:40 Atypical Lymphs % 1.0 % (0-5) 01/16/25 14:40 Absolute Neutrophils 14.3 10^3/cmm (1.4-6.5) H 01/16/25 14:40 Segmented Neutrophils 73 % 01/16/25 14:40 Band Neutrophils 1.0 % 01/16/25 14:40 Absolute Lymphocytes 1.7 10^3/cmm (1.2-3.4) 01/16/25 14:40 Lymphocytes (Manual) 8 % 01/16/25 14:40 Monocytes (Manual) 12.0 % 01/16/25 14:40 Absolute Monocytes 2.3 10^3/cmm (0.1-0.6) H 01/16/25 14:40 Eosinophils (Manual) 1 % 01/16/25 14:40 Absolute Eosinophils 0.2 10^3/cmm (0.0-0.7) 01/16/25 14:40 Basophils (Manual) 0.0 % 01/16/25 14:40 Absolute Basophils 0.0 10^3/cmm (0.0-0.2) 01/16/25 14:40 Metamyelocytes 2.0 % 01/16/25 14:40 Myelocytes 2.0 % 01/16/25 14:40 Nucleated RBCs # 0.0 /100WBC 01/30/25 04:12 Platelet Estimate Increased (Normal) 01/16/25 14:40 Giant Platelets Trace 01/16/25 14:40 Anisocytosis 1+ H 01/16/25 14:40 ESR 53 mm/hr (0-10) H 01/16/25 14:40 Specimen Type Arterial 01/26/25 12:39 Sample Site Radial, left 01/26/25 12:39 ABG pH 7.50 (7.35-7.45) H 01/26/25 12:39 ABG pCO2 44.8 mmHg (35-45) 01/26/25 12:39 ABG pO2 146.0 mmHg (80.0-100.0) H 01/26/25 12:39 ABG PO2/FiO2 Ratio 417 01/26/25 12:39 ABG HCO3 35.0 mmol/L (22-26) H 01/26/25 12:39 ABG O2 Saturation > 99.1 01/26/25 12:39 ABG Base Excess 10.7 mmol/L (-2.0-2.0) H 01/26/25 12:39 Juan Antonio Test Pos 01/26/25 12:39 A-a O2 Gradient 6.1 mmHg (5-10) 01/26/25 12:39 Hematocrit 29.6 % (42-52) L 01/26/25 12:39 Hgb O2 Saturation 98.8 % (95-100) 01/26/25 12:39 Carboxyhemoglobin 1.5 %THgb (0.4-20.1) 01/26/25 12:39 Methemoglobin 0.1 % (0.4-1.5) L 01/26/25 12:39 Total Hemoglobin 9.7 g/dL (14-18) L 01/26/25 12:39 Sodium 141.0 mmol/L (131-143) 01/26/25 12:39 Potassium 4.2 mmol/L (3.5-5.0) 01/26/25 12:39 Glucose 176.0 mg/dL (70-115) H 01/26/25 12:39 Ionized Calcium 1.1 mmol/L (1.1-1.4) 01/26/25 12:39 O2 Delivery Device Vent 01/26/25 12:39 O2 Liters/Min 2.0 % 01/17/25 16:47 FiO2 35.0 % 01/26/25 12:39 Tidal Volume 0.37 01/26/25 05:50 PEEP 8.0 cmH20 01/26/25 12:39 Venetian Blind Maker ID Monro 01/26/25 12:39 Sodium 144 mmol/L (136-145) 01/30/25 04:12 Potassium 4.0 mmol/L (3.5-5.1) 01/30/25 04:12 Chloride 108 mmol/L (98-107) H 01/30/25 04:12 Carbon Dioxide 24 mmol/L (22-29) 01/30/25 04:12 Anion Gap 16.0 (5-19) 01/30/25 04:12 BUN 21 mg/dL (8-23) 01/30/25 04:12 Creatinine 0.4 mg/dL (0.7-1.2) L 01/30/25 04:12 GFR Calculation 217.3 mL/min (90-130) H 01/30/25 04:12 Glucose 201 mg/dL (65-115) H 01/30/25 04:12 POC Glucose 217 mg/dL (70-110) H 01/30/25 11:13 Calculated Osmolality 307 mOsm/kg (285-295) H 01/30/25 04:12 Lactic Acid 1.1 mmol/L (0.5-2.2) 01/17/25 17:05 Lactic Acid (Sepsis) 3.6 mmol/L (0.5-2.2) H 01/16/25 17:20 Calcium 8.8 mg/dL (8.5-10.5) 01/30/25 04:12 Phosphorus 2.1 mg/dL (2.5-4.5) L 01/30/25 04:12 Magnesium 2.3 mg/dL (1.7-2.3) 01/30/25 04:12 Total Bilirubin 0.3 mg/dL (0.15-1.2) 01/30/25 04:12 AST 18 U/L (0-40) 01/30/25 04:12 ALT 25 U/L (0-41) 01/30/25 04:12 Alkaline Phosphatase 116 U/L (40-130) 01/30/25 04:12 C-Reactive Protein 113.8 mg/L (0.0-4.9) H 01/16/25 14:40 NT-Pro-B Natriuret Pep 06720 pg/mL (0-125) H 01/20/25 10:32 Total Protein 5.4 g/dL (6.6-8.7) L 01/30/25 04:12 Albumin 3.5 g/dL (3.5-5.2) 01/30/25 04:12 Globulin 1.9 g/dL (1.3-4.6) 01/30/25 04:12 Vitamin B12 1126 pg/mL (232-1245) 01/16/25 14:40 Folate 11.9 ng/mL (4.5-32.2) 01/17/25 03:58 Procalcitonin 9.42 ng/mL (0-0.5) H 01/17/25 03:58 TSH 1.92 uIU/mL (0.27-4.20) 01/16/25 14:40 Urine Color Dark yellow (Yellow) A 01/27/25 09:05 Urine Appearance Turbid (CLEAR) A 01/27/25 09:05 Urine pH 5.0 (5-7) 01/27/25 09:05 Ur Specific Nelson 1.019 (1.005-1.030) 01/27/25 09:05 Urine Protein 2+ (Negative) A 01/27/25 09:05 Urine Glucose (UA) Negative (Normal) 01/27/25 09:05 Urine Ketones Trace (Negative) 01/27/25 09:05 Urine Blood 3+ (Negative) A 01/27/25 09:05 Urine Nitrate Negative (Negative) 01/27/25 09:05 Urine Bilirubin 1+ (Negative) H 01/27/25 09:05 Urine Urobilinogen 1.0 mg/dL (Negative) 01/27/25 09:05 Ur Leukocyte Esterase 2+ (Negative) A 01/27/25 09:05 Urine RBC >100 /hpf (0-2) H 01/27/25 09:05 Urine WBC >100 /hpf (0-5) H 01/27/25 09:05 Ur Squamous Epith Cells 5-10 /hpf (0-5) H 01/27/25 09:05 Amorphous Sediment Not Reportable 01/27/25 09:05 Urine Bacteria 3+ /hpf (NONE) H 01/27/25 09:05 Hyaline Casts 151.84 /lpf 01/16/25 16:30 Fine Granular Casts 0-4 /lpf H 01/16/25 16:30 Urine Yeast 2+ /hpf H 01/27/25 09:05 Nasal MRSA (PCR) Not detected (Negative) 01/17/25 00:00 Vancomycin Trough 18.8 ug/mL (10-15) H 01/30/25 13:05 Random Vancomycin 22.1 ug/mL (20.0-40.0) 01/22/25 03:37 Urine Opiates Screen Negative ng/mL (Negative) 01/16/25 16:30 Acetaminophen < 5.0 ug/mL (10-30) L 01/17/25 17:05 Ur Barbiturates Screen Negative ng/mL (Negative) 01/16/25 16:30 Ur Phencyclidine Scrn Negative ng/mL (Negative) 01/16/25 16:30 Ur Amphetamines Screen Negative ng/mL (Negative) 01/16/25 16:30 U Benzodiazepines Scrn Positive ng/mL (Negative) H 01/16/25 16:30 Urine Cocaine Screen Negative ng/mL (Negative) 01/16/25 16:30 U Marijuana (THC) Screen Negative ng/mL (Negative) 01/16/25 16:30 Blastomyces Ag Result None detected ng/mL 01/23/25 13:05 Blastomyces Ag Interp Negative 01/23/25 13:05 Vitals Last Vital Signs Temp 98.0 F 01/30/25 11:45 Pulse 105 H 01/30/25 12:45 Resp 14 01/30/25 13:58 BP 116/61 01/30/25 12:45 Pulse Ox 100 01/30/25 13:58 O2 Del Method Mechanical Ventilation 01/30/25 12:45 O2 Flow Rate 50 01/27/25 15:21 FiO2 30 01/30/25 13:58 Discharge Plan Discharge Patient Disposition: Xfer Short-Term Hosp Condition: Stable Prescriptions: No Action simvastatin 40 mg tablet 40 mg PO QPM Qty: 30 2RF Jardiance 10 mg tablet 10 mg PO DAILY Qty: 30 6RF metoprolol succinate 25 mg tablet extended release 24 hr 12.5 mg PO BID Qty: 60 2RF aspirin 81 mg tablet 81 mg PO DAILY Trelegy Ellipta 100-62.5-25 mcg blister with device 1 inh inhalation DAILY Qty: 28 0RF (DME) Nebulizer with tubing and filter See Rx Instructions .Route .MEDSUPPLY Qty: 1 0RF Rx Instructions: as directed nitroglycerin 0.4 mg tablet, sublingual 0.4 mg sublingual Q5M PRN (Reason: chest pain) Qty: 30 2RF Rx Instructions: do not exceed 3 doses per episode gabapentin 100 mg capsule 100 mg PO BID Qty: 60 0RF Eliquis 5 mg tablet 5 mg PO BID Qty: 60 2RF albuterol sulfate 2.5 mg /3 mL (0.083 %) solution for nebulization 2.5 mg inhalation Q4H PRN (Reason: Wheezing) Qty: 30 3RF losartan 50 mg tablet 50 mg PO DAILY Qty: 30 2RF imiquimod 5 % cream in packet See Rx Instructions .ROUTE .COMPLEX Rx Instructions: APPLY TO AFFECTED AREA ON LEFT NECK ONCE DAILY TUESDAY-TUESDAY (OFF WEEKENDS) FOR SIX WEEKS. WILL CAUSE REDNESS AND IRRITATION. brimonidine 0.2 % drops 1 drp ophthalmic (eye) BID dorzolamide 2 % drops 1 drp ophthalmic (eye) BID albuterol sulfate [Ventolin HFA] 90 mcg/actuation HFA aerosol inhaler 2 puff INHALATION Q6H PRN (Reason: breathing) Qty: 8.5 1RF buspirone 7.5 mg tablet 7.5 mg PO TID PRN (Reason: Anxiety) insulin aspart U-100 [Novolog FlexPen U-100 Insulin] 100 unit/mL (3 mL) insulin pen See Rx Instructions .ROUTE .COMPLEX Qty: 15 0RF Rx Instructions: Inject, subcut, 3 times daily, after meals, based on low-dose insulin sliding scale insulin glargine [Basaglar KwikPen U-100 Insulin] 100 unit/mL (3 mL) insulin pen 15 unit SUBCUT QPM 30 Days Qty: 15 0RF (DME) glucometer testing kit See Rx Instructions .Route .MEDSUPPLY Qty: 1 0RF Rx Instructions: check BS three times daily after meals strips#100 lancets#100 prednisone 20 mg tablet 20 mg PO DAILY sulfamethoxazole-trimethoprim 800-160 mg tablet 1 tab PO .MON, WED, FRI furosemide 40 mg tablet 40 mg PO QAM PRN (Reason: edema/heart) Referrals: [facility] [Outside] Jacinto Freed MD [Family Provider, Pulmonology] Natalia Alvarado NP [Primary Care Provider, Family Practice] Discharge Diet: Start new tube feeds as directed Discharge Activity: Increase activity as tolerated Activity Restrictions/Additional Instructions: PODIATRY DISCHARGE INSTRUCTIONS--DR. ROYAL -Dressing changes: Jay wrap compression dressing to bilateral lower extremities from toes up to the level of knee -Follow up: Follow-up with podiatry in the outpatient setting within 2 weeks of discharge -Weightbearing status: Weightbearing as tolerated -Please contact podiatry clinic at [phone] with any questions regarding patient's discharge Patient's Health Concerns: Jevity 50 cc an hour goal with free water flushes every 4 hours 50 cc Discharge Attestations Time Spent in Discharge Care*: critical care time Critical Care Time (min): 60 Time Spent in Smoking Cessation: Patient has never been a Quality Metrics Clinical Quality Measures [ No reported AMI, CVA or VTE this stay] Coding Level of Care Code Critical Care >/= 30 minutes Critical care time (in minutes): 60 The high probability of a clinically significant, sudden or life threatening deterioration, as referenced in this documentation, required my full and direct attention, intervention and personal management. The critical care time shown is in addition to time spent performing any reported separately billable procedures and includes the following: [x] Data and vital sign review and interpretation [x ] Patient assessment, examination and intervention [x] Medication orders and management [x] Patient/Family updates as able [x] Care Coordination and Documentation. Diagnoses Respiratory failure J96.90 Urinary tract infection due to ESBL Klebsiella N39.0; B96.89 Atelectasis, bilateral J98.11 Metabolic alkalosis with respiratory acidosis E87.4 Pulmonary edema J81.1 History of pulmonary embolism Z86.711 Type 2 diabetes mellitus without complication, without long-term current use of insulin E11.9 Diabetes mellitus intermediate card tender insulin use: without chcf use Diabetes mellitus complication status: without complication Yeast UTI B37.49 Infection due to yeast B37.9 Basal cell carcinoma C44.91 Adrenal insufficiency E27.40 Time Spent (min) 60
--- NOTE | 2025-01-30 16:25 | PC.NURSE ---
Patient was transferred with blood transfusing. Blood bag still had 300 mls of blood. Report was given to EMS.
--- NOTE | 2025-01-30 16:40 | PC.SOCIAL ---
*IMM* copy of IMM was gave to Family/patient, dated and initialed in chart.
[2025-01-30 18:13] LABS: Histoplasma Antigen (Quant) None Detected; Histoplasma Antigen Interpreta NEGATIVE; Histoplasma Antigen Specimen LAVAGE,BRONCHIAL
--- NOTE | 2025-01-30 18:23 | PC.NURSE ---
[facility] was contacted to give report to. EMS picked up patient at 1630.
--- NOTE | 2025-01-30 18:56 | P.PN_ITS ---
Subjective 2 Subjective: Partha Roe is a 65 year old male COPD, sarcoidosis diagnosed in 2018, biopsy-proven on 20 mg of prednisone since then attempting to wean off gets admitted to the hospital with worsening shortness of breath was placed on BiPAP and I was consulted for further management Patient was gradually weaned off of prednisone. CT scan done recently does not have any evidence of any lung nodules or evidence of sarcoidosis. He was on albuterol and Trelegy for his COPD. Outpatient labs showed normal alpha-1 antitrypsin levels, TERRA and ESR levels are normal This admission patient comes to the ER with fever weakness and low blood pressure. Patient had had leg cellulitis for the last 2 days becoming woozy and foul-smelling. He was found to be in septic shock and admitted to the hospital. Fluid bolus given. Empirically started on IV IV vancomycin and meropenem. Creatinine was found to be elevated at 1.7. Patient was also treated for COPD Exacerbation with Pulmicort twice daily and DuoNebs every 6 hours Labs were consistent with white count of 19. ABG shows a pH of 7.23, pCO2 of 41 we will start her on BiPAP and tolerating it well. CT chest showed no PE and some bibasilar infiltrates in the dependent portion of the chest possible pneumonia mucous plugging bilateral lower lobes. 01/20/2025 Patient decompensated last night and had to be urgently intubated. Became more dyspneic prior to intubation. Respiratory rate went up to 21 prior to intubation and became lethargic. Did not need pressors. Currently on tidal volume of 370 mL, respiratory rate of 14 FiO2 of 30%. On propofol and fentanyl drips for sedation. 01/21/2025 Patient is on the ventilator tolerating tidal volume of 370 mL, FiO2 of 30%. Satting 96% peripherally. On propofol at 50 and fentanyl at 75 mics. Getting free water flushes. 01/22/2025 Tolerating ventilator well. PF ratio is improved to 300s but mentation is not appropriate yet. On Versed and fentanyl drips 01/23/2025 Patient still has a lot of thick secretions via ET tube. Chest x-ray showed pulmonary vascular congestion although could be pneumonia as well. Bronchoscopy performed today. Good urine output. 01/24/2025 Very minimal ETT secretions. Still very volume overloaded. Bronchoscopy done yesterday. Secretions. Mental status still not appropriate for extubation. On Precedex 0.5. Wakes up and follows commands but very weak still. 01/25/2025 Minimal ET tube secretions. Awake following commands. Still having some apneic episodes. Off of all sedation. 01/27/2024 Had an episode of mucous plugging overnight where he had to be placed on high percent FiO2 on the ventilator briefly with aggressive suctioning. This morning he looks awake and alert following commands, good cough. Vent settings of the same on 35% FiO2 satting 100% currently. 01/27/2025 Patient has been having mucous plugging issues. Did get extubated on high flow nasal cannula currently 50 L / 30%. Chest x-ray showed complete atelectasis of the right side. He is awake and following commands. Not participating in chest vest therapy well. Complains of back pain. 01/29/2025 Patient is trach currently tolerating well. On 2 levo.. Sedated. 01/30/2025 Tolerating trach well. Off levo. [facility] Review of systems-cannot be obtained patient is intubated and sedated Vitals/I&O/Wt Last Vital Signs Temp 97.8 F 01/30/25 15:57 Pulse 99 01/30/25 18:21 Resp 16 01/30/25 15:57 BP 129/71 01/30/25 18:21 Pulse Ox 100 01/30/25 18:21 O2 Del Method Mechanical Ventilation 01/30/25 15:30 O2 Flow Rate 50 01/27/25 15:21 FiO2 30 01/30/25 15:30 01/30/25 01/30/25 01/30/25 06:59 14:59 22:59 Intake Total 50 / 770.166 150 / 150 0 / 150 Output Total 500 / 1325 200 / 200 550 / 750 Balance -450 / -554.834 -50 / -50 -550 / -600 Weight last 48 hrs Weight 165 lb Weight 161 lb 7 oz Physical Exam 2 Narrative: General: sedated. HEENT: conj clear, EOMI, PERRL Neck: supple Pulmonary: Diminished breath sounds bilaterally Cardiovascular: rrr, nl s1s2, no mrg Skin: no rash Neurologic: grossly intact Urinary Catheter Management: Plaza: Cath Placed During This Visit: yes Reason for Continuing Indwelling Catheter: Acute Urinary Retention or Obstruction Urinary Catheter Date of Insertion: 01/27/25 Urinary Catheter Time of Insertion: 08:52 Data 01/30/25 12:08 01/30/25 04:12 Micro: Microbiology 01/28/25 13:35 Gram Stain - Final Sputum - Endotracheal Tube Aspirate Sputum Culture - Final 01/23/25 13:05 Respiratory Virus Antigen Screen - Final Bronchial Washings A&P Assessment and plan 1. COPD (chronic obstructive pulmonary disease): Plan: # Septic shock-most likely due to bilateral lower extremity cellulitis as well as pneumonia. -Patient's lower extremities are most likely the source of his sepsis although pneumonia sputum cultures pending obtain 01/25/2025. Status post bronchoscopy 01/25/2025. No growth till 01/29/2025, cultures reviewed today personally. - S/p Trach- 01/29/25 -Urine cultures positive for Klebsiella 01/16/2025 - Endorgan damage is renal as well as hemodynamic collapse - Continue broad-spectrum antibiotics with meropenem-7 days of antibiotics completed stop today.[employer] - [id number] [facility] [[email or web address]] - - Labs reviewed-01/28/2025-no growth till date on cultures other than gram- negative rods noted on sputum cultures from 01/29/2025. # Bilateral lower leg extremity cellulitis/sepsis Overall improvement noted dressing changes per Dr. Noel. Unreliable weight checks. Clinically looks less edematous overall. # Acute on chronic hypercapnic/hypoxic respiratory failure-most likely secondary to acute pulmonary edema/acute congestive heart failure and pneumonia -Vent days #7, intubated, extubated 01/26/2025, reintubated 01/27/2025. Trached 01/29/25 - Continue to wean vent- trial flow. Pending discharge to [facility]. - Chest x-ray reviewed by me personally 01/27/2025-shows complete atelectasis with progression on during the day reviewed chest x-ray 01/28/2025-showing resolution of the right complete atelectasis postintubation and ventilator use. Left lower lobe infiltrate still persists. Urine output 2700 mL 01/26/2025.-4 L out Continue DuoNebs along with Pulmicort Brovana continue -Continue steroids- prednisone daily - Reviewed chest x-ray from today bilateral pleural effusions noted but diaphragms more visible and lung parenchyma more clear. I reviewed the images personally myself and interpreted findings independently. # Right lung complete atelectasis-resolved Most likely mucous plugging. -Continue Hypersal solution nebs and Mucinex. Shock-most likely septic - Off Levophed drip # Most likely obstructive sleep apnea # Diaphragmatic weakness and high risk for aspiration and mucous plugging-status post trach # Bilateral pleural effusions-most likely congestive heart failure related - Continue Diamox. pH is 7.5. # Hypernatremia Labs reviewed 01/26/2025. Sodium has normalized to 139 today 01/28/2025. # Acute encephalopathy-resolved # Hypokalemia Resolved # Acute COPD exacerbation -Continue bronchodilators, steroids changed 01/24/2025--changed over to 20 mg prednisone today 01/26/2025-wean off in 2 to 3 days # Probable bilateral pneumonia -CT scan reviewed did not show any PE but did show mucous plugging in the bilateral lower lobes suggestive of pneumonia close to the diaphragm -Antibiotics as above- -Urine growing gram-negative rods but may not be true UTI recommend changing catheter and checking another UA. All others NGTD. Staph epi in 1 out of 2 blood cultures most likely contaminant NGTD 01/25/2025 other than Klebsiella in urine -Status post bronchoscopy 01/23/2025-BAL from bilateral lower lobes collected and sent for cultures. Frothy secretions noted on clear mother congestive heart failure versus pneumonia or combination of both. Airways look very edematous and boggy-no growth till date reviewed today 01/26/2025, Merrem discontinued 01/28/2025. - Sputum cultures deep tracheal aspirate growing gram-negative rods. Vancomycin and Zosyn restarted 01/28/2025. # Bilateral lower leg cellulitis-severe -Currently covered with meropenem. Good anaerobic and beta-lactam coverage vancomycin discontinued 01/23/2025, Merrem discontinued 01/26/2025-completed 7- day course -Wrapping legs and arms in place. Appreciate Dr. Mensah' help. # History of PE -On full dose Lovenox currently to replace per home dose Eliquis. Hemoglobin stable # Mucous plugging -Continue DuoNebs and bronchodilators with steroids. Continue Mucinex to help mobilize secretions. # Obesity # Sarcoidosis -Not active at this time. Recent TERRA and ESR labs were low when last checked in clinic recently. # MICHELLE -Improved. # Acute lactic acidosis -Improved # Anemia -most likely sepsis induced. Not seeing any obvious source of bleeding currently. he is Hemoccult positive but not actively bleeding. Agree with Protonix 40 mg IV twice daily, will start anticoagulation soon Once anemia corrected. # Hypoalbuminemia - IV albumin given twice daily Maintenance meds -Maintain glucose levels and keep blood glucose 140-180. Avoid hypoglycemia. tube feeds at goal. Good bowel regimen. May discontinue lactulose by today - Sedation-wean off propofol drip maintained on Versed and fentanyl drips alone. -DVT GI prophylaxis with protonix. Due to cellulitis SCDs cannot be placed leg wrappings ongoing Full code Goals of care discussion-discussed case with who is at bedside today on 01/20/2025,01/21. She is agreeable to the current plan of care. 01/25/2025-she is agreeable to trialing extubation this weekend and if he fails due to his apnea episodes we would reintubate him. Discussed with Dr. Hodges. Plan to treat him if he fails by early next week. 01/27/2025. Got extubated yesterday but decompensating again today due to right atelectasis. May get intubated. 01/28/2025-agreeable for trach post intubation last night. Consulted Dr. Heath for trach placement. Okay to discharge to [facility] from pulmonary stand point. No conference with family today along with Dr. Hodges-they [facility] and management. 01/30/2025 Medical decision making level-high high MDM includes number and complexity of problems actively addressed during encounter, amount and/or complexity of data reviewed/ordered [ previous or external records, resulted lab(s)/test(s), ordered lab(s)/test(s), independent historian, independent test interpretation and other healthcare professional discussion] and described risk of complication, morbidity or mortality of management as documented This documentation was created by [employer] statistics manager software (known for inherent statistics manager error). Every effort was made to assure accuracy of statistics manager. Any obvious errors or omissions should be clarified with the author of the document PDMP PDMP Reviewed: Not Reviewed Attestations 2 Medical Necessity Statement*: on mechanical ventilation Coding Level of Care Code 95341 Diagnoses COPD (chronic obstructive pulmonary disease) J44.9
== END 2025-01-30 16:30 | DRG 4 ==
LOC: ER 18:14 → ICU 18:27
PROVIDERS: Internal Medicine; Specialist; Admitting Provider Student in an Organized Health Care Education/Training Program; Emergency Provider Family Medicine; Family Provider Internal Medicine; Visit Provider Internal Medicine
PROC: 0B110F4 Bypass Trachea to Cutaneous with Tracheostomy Device, Open Approach (ICD-10-PCS; principal; 2025-01-29 07:00)
DX: A41.9 Sepsis, unspecified organism (principal); J18.9 Pneumonia, unspecified organism; R65.21 Severe sepsis with septic shock; J96.22 Acute and chronic respiratory failure with hypercapnia; J96.21 Acute and chronic respiratory failure with hypoxia; J44.1 Chronic obstructive pulmonary disease with (acute) exacerbation; J44.0 Chronic obstructive pulmonary disease with (acute) lower respiratory infection; N39.0 Urinary tract infection, site not specified; Z16.12 Extended spectrum beta lactamase (ESBL) resistance; J98.11 Atelectasis; E87.4 Mixed disorder of acid-base balance; E27.40 Unspecified adrenocortical insufficiency; L03.116 Cellulitis of left lower limb; L03.115 Cellulitis of right lower limb; I13.0 Hypertensive heart and chronic kidney disease with heart failure and stage 1 through stage 4 chronic kidney disease, or unspecified chronic kidney disease; I50.32 Chronic diastolic (congestive) heart failure; E87.1 Hypo-osmolality and hyponatremia; N17.9 Acute kidney failure, unspecified; J98.09 Other diseases of bronchus, not elsewhere classified; B37.9 Candidiasis, unspecified; B96.20 Unspecified Escherichia coli [E. coli] as the cause of diseases classified elsewhere; Z86.711 Personal history of pulmonary embolism; E11.9 Type 2 diabetes mellitus without complications; C44.41 Basal cell carcinoma of skin of scalp and neck; Z79.4 Long term (current) use of insulin; Z79.01 Long term (current) use of anticoagulants; Z79.51 Long term (current) use of inhaled steroids; Z79.84 Long term (current) use of oral hypoglycemic drugs; B95.8 Unspecified staphylococcus as the cause of diseases classified elsewhere; I87.8 Other specified disorders of veins; Z87.01 Personal history of pneumonia (recurrent); I25.10 Atherosclerotic heart disease of native coronary artery without angina pectoris; Z95.5 Presence of coronary angioplasty implant and graft; N18.9 Chronic kidney disease, unspecified; E78.5 Hyperlipidemia, unspecified; D86.0 Sarcoidosis of lung; Z79.52 Long term (current) use of systemic steroids; F32.A Depression, unspecified; E87.5 Hyperkalemia; J43.2 Centrilobular emphysema; G89.29 Other chronic pain; E88.09 Other disorders of plasma-protein metabolism, not elsewhere classified; D64.9 Anemia, unspecified; Z85.821 Personal history of Merkel cell carcinoma
CPT/HCPCS: 31622; 36415; 36416; 36430; 36573; 36592; 36600; 51702; 51798; 70450; 71045; 71250; 71275; 73701; 74176; 80048; 80051; 80053; 80202; 80306; 80307; 81001; 82274; 82330; 82607; 82746; 82803; 82805; 82962; 83605; 83735; 83880; 84100; 84145; 84443; 85007; 85014; 85018; 85025; 85651; 86140; 86403; 86850; 86900; 86920; 87015; 87040; 87070; 87075; 87077; 87086; 87102; 87106; 87116; 87150; 87186; 87205; 87206; 87385; 87449; 87801; 88112; 88305; 93005; 93306; 94002; 94003; 94060; 94640; 94660; 94669; 94726; 94729; 94799; 96365; 96367; 96372; 96375; 96376; 97110; 97161; 97530; 99214; 99285; 99291; 99292; A4570; A4625; J0330; J1171; J1610; J1650; J1720; J1815; J1885; J1938; J2060; J2185; J2250; J2270; J2470; J2543; J2704; J2919; J3010; J3372; J3373; J3490; J7030; J7040; J7050; J7060; J7070; J7512; J7605; J7611; J7613; J7614; J7626; J7644; J7799; J9999; P9016; P9046; P9047; Q3014